=== PATIENT | male | born 1950 | race Caucasian/White ===

== ENCOUNTER 2021-08-07 09:46 | Outpatient (REF) | payer OTHER, SELFPAY | END 2021-08-07 09:47 | disposition home or self-care (01) | LOC: HO.LAB 09:46 | DX: R31.9 Hematuria, unspecified (principal) | CPT/HCPCS: 87086; 87088; 87186; 88112 ==

== ENCOUNTER → 2021-08-28 07:22 | Outpatient (BNVA) | payer OTHER, SELFPAY | PROVIDERS: PCP Nurse Practitioner Family; Referring Provider Nurse Practitioner Family; Visit Provider Nurse Practitioner ==

== ENCOUNTER 2021-08-30 09:06 | Outpatient (REF) | payer OTHER, SELFPAY ==
[2021-08-30 09:29] LABS: MANUAL DIFF FLAG NO
[2021-08-30 10:13] LABS: Basophils Percent Auto 0.3 % (0-2); Eosinophils Absolute Auto 0.1 X10*3/uL (0.0-0.4); Eosinophils Percent Auto 1.4 % (0-4); Hematocrit 35.7 % (42.0-52.0); Hemoglobin 10.9 g/dl (14.0-18.0); Imm Gran Abs Auto 0.02 X10*3/uL (0.00-0.03); Imm Gran Pct Auto 0.3 % (0.0-0.4); Lymphocytes Absolute Auto 1.5 X10*3/uL (1.2-4.9); Lymphocytes Percent Auto 23.3 % (20-40); Mean Corpuscular HGB Conc 30.5 g/dl (31.0-36.0); Mean Corpuscular Hemoglobin 26.2 pg (27.0-33.0); Mean Corpuscular Volume 85.8 fL (80.0-98.0); Mean Platelet Volume 10.5 fL (9.4-12.4); Monocytes Absolute Auto 0.5 X10*3/uL (0.1-1.2); Monocytes Percent Auto 7.6 % (2-11); Neutrophils Absolute Auto 4.3 x10*3/uL (2.0-8.3); Neutrophils Percent Auto 67.1 % (45-73); Platelet Count 391 X10*3/uL (160-400); Red Blood Count 4.16 X10*6/uL (4.60-5.80); Red Cell Distribution Width 15.5 % (11.0-16.0); White Blood Count 6.4 X10*3/uL (4.8-10.8)
[2021-08-30 10:26] LABS: Alanine Aminotransferase 18 U/L (0-40); Alkaline Phosphatase 136 U/L (39-117); Anion Gap 12 (12-20); Aspartate Amino Transferase 22 U/L (5-37); Bilirubin Total 0.4 mg/dL (0.0-1.0); Blood Urea Nitrogen 14 mg/dL (9-16); Calcium 9.4 mg/dL (8.4-10.2); Carbon Dioxide 27 mmol/L (22-29); Chloride 101 mmol/L (96-108); Estimated Glomerular Filt Rate > 60; Glucose Random 87 mg/dL (60-115); Potassium 5.1 mmol/L (3.3-5.1); Sodium 135 mmol/L (135-145); Total Protein 7.2 g/dL (6.5-8.0)
[2021-08-30 10:38] LABS: Blood Urea Nitrogen 13 mg/dL (9-16)
[2021-08-30 11:44] LABS: Urine Cytology See Pathology rpt
== END 2021-08-30 09:07 | disposition home or self-care (01) ==
LOC: HO.LAB 09:06
PROVIDERS: Absent Provider Nurse Practitioner
DX: R31.9 Hematuria, unspecified (principal); R10.9 Unspecified abdominal pain; K60.4 Rectal fistula; K92.1 Melena
CPT/HCPCS: 36415; 80053; 82378; 84520; 85025; 88112

== ENCOUNTER 2021-09-02 12:02 | Inpatient (IN) | payer OTHER, MEDICARE, SELFPAY ==
--- NOTE | ~2021-09-02 | CT_ITS ---
EXAMINATION: CT CHEST WITHOUT CONTRAST CLINICAL INFORMATION: Follow-up pulmonary nodule seen on abdominal pelvic CT COMPARISON: Abdominal pelvic CT from yesterday TECHNIQUE: Multidetector volumetric CT imaging of the chest was done. Axial MIP volume rendering provided. Sagittal and coronal reformatted images were obtained. This CT examination was performed using dose optimization techniques as appropriate, variously including the following: *Automated exposure control *Adjustment of mA and/or kV according to patient size (this includes techniques or standardized protocols for targeted exams where dose is matched to indication/reason for exam; i.e. extremities or head) *Use of iterative reconstruction technique DLP: 285 mGy-cm FINDINGS: LUNGS: There is evidence of mild emphysema. There is a linear parenchymal density seen at the left lung apex. This is irregularly-shaped and difficult to measure. This measures approximately 3 x 15 mm in transverse and longitudinal dimension coronal 41. There is a 1.2 cm left lower lobe nodule axial image 306 series 5. There is a 1.6 cm peripheral or subpleural right middle lobe nodule adjacent to the minor fissure axial image 313 series 5. There is a 1 cm lingular nodule axial image 346 series 5 there is a Image 1 x 1.5 cm peripheral or subpleural left lower lobe nodule adjacent to the fissure axial image 368 series 5. There is a 0.8 x 1 cm right middle lobe nodule axial image 431 series 5. There is a 1.2 x 1.5 cm right lower lobe nodule axial image 439 series 5. MEDIASTINUM: There is coronary artery and aortic valve calcification. The mediastinum is otherwise normal. PLEURA: There is no pleural effusion. No pleural mass or thickening. AXILLA: There is bilateral axillary lymphadenopathy. Largest lymph node is a left axillary lymph node which is upper normal in size. There is a small fatty lesion in the right latissimus dorsi muscle probably representing a lipoma. UPPER ABDOMEN: There is a 2 cm low-attenuation lesion in the upper pole of the left kidney probably representing a cyst. There is high attenuation in the gallbladder and bilateral renal collecting systems probably representing excretion of contrast from yesterday's exam. There are small upper abdominal retroperitoneal lymph nodes. There is evidence of atherosclerotic disease OSSEOUS STRUCTURES: There are degenerative changes of the spine. CT/CT chest wo con IMPRESSION: Emphysema. Multiple bilateral pulmonary nodules, largest measuring approximately 1.5 cm.. Infectious, inflammatory and neoplastic processes should be considered. Coronary artery and aortic valve calcification. Fleischner guidelines were followed.
--- NOTE | ~2021-09-02 | CT_ITS ---
EXAMINATION: CT-GUIDED RIGHT RENAL MASS BIOPSY CLINICAL INFORMATION: Right lower pole renal large mass. COMPARISON: CT abdomen 09/02/2021. TECHNIQUE: Following explaining CT fluoroscopy-guided right renal mass biopsy procedure, benefits and risk, a written consent was obtained. Patient was placed in left lateral decubitus view and preliminary CT imaging was obtained. An optimal site was selected along the right anterolateral lower abdomen following placement of markers and repeat scanning. A marker was placed on the skin. The marked site was cleaned and draped in the usual sterile manner. 1% lidocaine was administered at puncture site. Through a small skin incision, a 20-gauge guide needle was advanced from the skin into the lower pole right renal mass. A 3-pass fine-needle biopsy was performed with a 20-gauge spinal needle. Subsequently, a 4-pass core biopsy was performed with a 20-gauge biopsy gun. An adequate amount of sample was received on fine-needle and core biopsy. Postprocedure, the needle was withdrawn and complete hemostasis was achieved at the puncture site. Sterile dressing applied postprocedure. Patient received conscious sedation and was monitored for 30 minutes by IR nursing and radiologist. FINDINGS: On the left lateral decubitus view, there is a large mass in the lower pole right kidney less distinct on this nonenhanced CT when abdomen compared to previous enhanced CT 09/02/2021. Successful coaxial fine needle 20-gauge and core biopsy performed of lower pole right renal mass. The preliminary results revealed epithelial cells. CT/CT guided FNA IMPRESSION: Successful CT fluoroscopic-guided right lower pole renal mass fine-needle and core biopsy performed. Definite pathology results are pending. DLP: 249 mGy-cm
--- NOTE | ~2021-09-02 | CT_ITS ---
EXAMINATION: CT ABDOMEN AND PELVIS WITH CONTRAST CLINICAL INFORMATION: Pneumaturia and GI bleeding with mass and fistula suspected. COMPARISON: None TECHNIQUE: Multidetector volumetric images were obtained from the superior aspect of the liver through the pubic symphysis following administration 85 mL of Omnipaque 350 intravenous contrast. Sagittal and coronal reformatted images were obtained on the technologist's workstation. Oral Contrast: No. This CT examination was performed using dose optimization techniques as appropriate, variously including the following: *Automated exposure control. *Adjustment of mA and/or kV according to patient size (this includes techniques or standardized protocols for targeted exams where dose is matched to indication/reason for exam; i.e. extremities or head). *Use of iterative reconstruction technique. DLP: 486 mGy-cm FINDINGS: LUNG BASES: There are 2 somewhat spiculated masses at the right lung base, one in the middle lobe measuring 1.0 x 1.0 x 1.4 cm (4:19) and one in the right lower lobe measuring 1.8 x 1.2 x 1.5 cm (4:18). LIVER, GALLBLADDER, AND BILIARY TREE: The liver is normal in size, shape, and attenuation. No focal hepatic lesion or biliary ductal dilatation is present. The gallbladder is unremarkable with no evidence of radiopaque gallstones, gallbladder wall thickening, or obvious pericholecystic inflammatory changes. PANCREAS: Unremarkable. SPLEEN: Unremarkable. ADRENAL GLANDS: Unremarkable. KIDNEYS AND URETERS: The kidneys are normal in size, shape, and attenuation. There is a 2.7 benign Bosniak class I left upper pole renal cyst present. There is a large solid neoplasm in the lower pole of the right kidney measuring 4.6 x 4.2 x 5.6 cm. There is a cystic peripheral area in this mass. The mass extends towards the renal pelvis. No hydronephrosis, hydroureter, or calculi seen. No perinephric stranding. GASTROINTESTINAL TRACT AND BLADDER: There is a very abnormal area of rectosigmoid with thickening and enhancement and apparent invasion of the posterior bladder wall with lobular mucosal thickening posteriorly just above the level of the prostate. Air is present within the bladder presumably secondary to a fistulous connection. Diverticula are present in this area but no pericolonic fluid collections or retroperitoneal extraluminal air is seen. The remainder of the colon appears unremarkable. The small bowel appears normal. The appendix is normal. ABDOMINAL WALL: No significant hernia is appreciated. LYMPH NODES: Normal. VASCULAR: The IVC and renal veins appear normal. The left renal vein is retroaortic. Extensive aortic calcifications are present along with iliofemoral disease as well. No aneurysms. PELVIC VISCERA: Prostate and seminal vesicles are unremarkable. OSSEOUS STRUCTURES: Unremarkable. CT/CT abdomen pelvis w con IMPRESSION: Abnormal thickened sigmoid colon in the area of diverticula with apparent invasion of the bladder wall and associated air in the bladder. Differential diagnosis would include carcinoma as well as diverticulitis. I favor the former in light of the presence of what appears to be pulmonary metastases. Of note, a solid 5.6 cm neoplasm, presumably renal cell carcinoma, is present in the right kidney. It is hard to put all the findings together with one diagnosis unless the renal mass is a metastatic lesion. A lung biopsy of one of the pulmonary nodules could be the most illuminating sites to obtain diagnostic tissue. Fleischner guidelines were followed. This critical result was discussed with Dr. Tod Tobar at 7:40 PM on the evening of the exam and it was ascertained that the content and urgency of the report was understood at the time of direct communication.
--- NOTE | ~2021-09-02 | CT_ITS ---
EXAMINATION: CT-GUIDED RIGHT RENAL MASS BIOPSY CLINICAL INFORMATION: Right lower pole renal large mass. COMPARISON: CT abdomen 09/02/2021. TECHNIQUE: Following explaining CT fluoroscopy-guided right renal mass biopsy procedure, benefits and risk, a written consent was obtained. Patient was placed in left lateral decubitus view and preliminary CT imaging was obtained. An optimal site was selected along the right anterolateral lower abdomen following placement of markers and repeat scanning. A marker was placed on the skin. The marked site was cleaned and draped in the usual sterile manner. 1% lidocaine was administered at puncture site. Through a small skin incision, a 20-gauge guide needle was advanced from the skin into the lower pole right renal mass. A 3-pass fine-needle biopsy was performed with a 20-gauge spinal needle. Subsequently, a 4-pass core biopsy was performed with a 20-gauge biopsy gun. An adequate amount of sample was received on fine-needle and core biopsy. Postprocedure, the needle was withdrawn and complete hemostasis was achieved at the puncture site. Sterile dressing applied postprocedure. Patient received conscious sedation and was monitored for 30 minutes by IR nursing and radiologist. FINDINGS: On the left lateral decubitus view, there is a large mass in the lower pole right kidney less distinct on this nonenhanced CT when abdomen compared to previous enhanced CT 09/02/2021. Successful coaxial fine needle 20-gauge and core biopsy performed of lower pole right renal mass. The preliminary results revealed epithelial cells. CT/CT biopsy renal RT IMPRESSION: Successful CT fluoroscopic-guided right lower pole renal mass fine-needle and core biopsy performed. Definite pathology results are pending. DLP: 249 mGy-cm
[2021-09-02 12:42] VITALS: BP 105/69; PULSE 80; RESP 16; O2SAT 100; BMI 21.2
[2021-09-02 13:10] LABS: MANUAL DIFF FLAG NO
[2021-09-02 13:13] LABS: Appearance Urine CLOUDY; Color Urine YELLOW; Glucose Urine UA NEG (NEG); Leukocyte Esterase Urine 2+ (NEG); Nitrite Urine NEG (NEG); Specific Gravity - Urine >= 1.030 (1.005-1.025); UACC Culture Trigger YES; Urine Blood 3+ (NEG); Urine Ketones NEG (NEG); Urine Protein 1+ MG/DL (NEG-TRACE)
[2021-09-02 13:13] LABS: Basophils Percent Auto 0.4 % (0-2); Eosinophils Absolute Auto 0.1 X10*3/uL (0.0-0.4); Eosinophils Percent Auto 0.7 % (0-4); Hematocrit 32.5 % (42.0-52.0); Hemoglobin 10.7 g/dl (14.0-18.0); Imm Gran Abs Auto 0.03 X10*3/uL (0.00-0.03); Imm Gran Pct Auto 0.4 % (0.0-0.4); Lymphocytes Absolute Auto 1.6 X10*3/uL (1.2-4.9); Lymphocytes Percent Auto 19.5 % (20-40); Mean Corpuscular HGB Conc 32.9 g/dl (31.0-36.0); Mean Corpuscular Hemoglobin 27.6 pg (27.0-33.0); Mean Platelet Volume 9.8 fL (9.4-12.4); Monocytes Absolute Auto 0.7 X10*3/uL (0.1-1.2); Monocytes Percent Auto 8.8 % (2-11); Neutrophils Absolute Auto 5.8 x10*3/uL (2.0-8.3); Neutrophils Percent Auto 70.2 % (45-73); Platelet Count 360 X10*3/uL (160-400); Red Blood Count 3.87 X10*6/uL (4.60-5.80); Red Cell Distribution Width 15.6 % (11.0-16.0); White Blood Count 8.2 X10*3/uL (4.8-10.8)
[2021-09-02 13:30] LABS: Bacteria Urine 1+ /LPF; Mucus Urine 1+ /LPF; RBC Urine TNTC /HPF (0); Squamous Epithelial Cell Urine 1+ /LPF; UACC CULT YES; WBC Urine TNTC /HPF (0-4)
[2021-09-02 13:35] LABS: Anion Gap 12 (12-20); Blood Urea Nitrogen 14 mg/dL (9-16); Calcium 9.5 mg/dL (8.4-10.2); Carbon Dioxide 26 mmol/L (22-29); Chloride 99 mmol/L (96-108); Estimated Glomerular Filt Rate > 60; Glucose Random 91 mg/dL (60-115); Potassium 4.9 mmol/L (3.3-5.1); Sodium 132 mmol/L (135-145)
[2021-09-02] MEDS: Piperacillin Sodium/Tazobactam 3.375 GM in 0.9 % Sodium Chloride 50 ML IV (16:16)
[2021-09-02] MEDS: 0.9 % Sodium Chloride 500 ML IV (16:17)
--- NOTE | 2021-09-02 16:17 | ED_ITS ---
HPI - General Adult General Chief complaint: General Medical Stated complaint: Rectal bleed/ blood in urine Time Seen by Provider: 09/02/21 15:38 Source: patient and old records reviewed History of Present Illness HPI narrative: Patient complaining of GI bleed as well as hematuria dysuria. He has been seen as an outpatient with workup in progress by both GI and Urology. He states over the past several months he has been having episodes of pneumaturia especially after having a bowel movement. He has also been having hematuria and hematochezia without melena. He is due to have a CT scan of his abdomen before having a colonoscopy with concerns for a entero vesicular fistula. He is also due to have a uroterogram by his urologist as an outpatient. He presents today because symptoms are getting worse. He is having lower abdominal pain and worsening dysuria. He is due for scan on Wednesday but did not think he could wait that long. No fevers or chills. No nausea vomiting. His stools have gotten narrow over time as well. Related Data Previous Rx's Medication Instructions Recorded dicyclomine 20 mg tablet 20 mg PO QID 30 Days #120 tab 08/28/21 peg 3350-electrolytes 236 240 ml PO Q10M 1 Days #4000 ml 08/28/21 gram-22.74 gram-6.74 gram-5.86 gram solution (Golytely) sulfamethoxazole 800 1 tab PO BID 10 Days #20 tab 09/01/21 mg-trimethoprim 160 mg tablet Allergies Allergy/AdvReac Type Severity Reaction Status Date / Time No Known Allergies Allergy Verified 08/28/21 07:39 [facility] Past Medical History Surgical History History of surgery Social History Social History Patient Tobacco Use Status: Former Tobacco user Advance Directives: No Advance Directives Information Provided: Yes Physical Exam Vital Signs: Vital Signs: Last Vital Signs Temp 98.1 F 09/02/21 20:48 Pulse 66 09/02/21 20:48 Resp 12 09/02/21 20:48 BP 143/64 H 09/02/21 20:48 Pulse Ox 99 09/02/21 20:48 BMI result Body Mass Index 21.2 Course Course Course Narrative: 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 Possibly due to eroding mass. Urinary tract infection IV fluids IV antibiotics CT scan ordered Lab work shows white count of 3.87. Hemoglobin of 10.7. Creatinine is normal. 21:05. CT scan of the abdomen is very concerning in that it shows a sigmoid colon mass eroding through the bladder with a presumed fistula. He also has a mass of his kidney. Any has what appears to be metastases to his lungs. Results discussed with the patient. Also discussed with Oncology, Dr. Daugherty. Also discussed with surgery, Dr. Downing Case also discussed with hospitalist, Dr. Salazar Patient will be hospitalized to finish his workup. Medical Decision Making Lab Data Result diagrams: 09/02/21 12:57 09/02/21 12:58 Labs: Lab Results 09/02/21 09/02/21 09/02/21 Range/Units 12:55 12:57 12:58 WBC 8.2 (4.8-10.8) X10*3/uL RBC 3.87 L (4.60-5.80) X10*6/uL Hgb 10.7 L (14.0-18.0) g/dl Hct 32.5 L (42.0-52.0) % MCV 84.0 (80.0-98.0) fL MCH 27.6 (27.0-33.0) pg MCHC 32.9 (31.0-36.0) g/dl RDW 15.6 (11.0-16.0) % Plt Count 360 (160-400) X10*3/uL MPV 9.8 (9.4-12.4) fL Immature Gran % (Auto) 0.4 (0.0-0.4) % Neut % (Auto) 70.2 (45-73) % Lymph % (Auto) 19.5 L (20-40) % [place] % (Auto) 8.8 (2-11) % Eos % (Auto) 0.7 (0-4) % Baso % (Auto) 0.4 (0-2) % Lymph # (Auto) 1.6 (1.2-4.9) X10*3/uL [place] # (Auto) 0.7 (0.1-1.2) X10*3/uL Eos # (Auto) 0.1 (0.0-0.4) X10*3/uL Baso # (Auto) 0.0 (0.0-0.2) X10*3/uL Abs Immat Gran (auto) 0.03 (0.00-0.03) X10*3/uL Absolute Neuts (auto) 5.8 (2.0-8.3) x10*3/uL Absolute Nucleated RBC 0.000 (0.0-0.012) X10*3/uL Nucleated RBC % (auto) 0.0 (0.0-0.2) /100WBC Sodium 132 L (135-145) mmol/L Potassium 4.9 (3.3-5.1) mmol/L Chloride 99 (96-108) mmol/L Carbon Dioxide 26 (22-29) mmol/L Anion Gap 12 (12-20) BUN 14 (9-16) mg/dL Creatinine 1.12 (0.5-1.4) mg/dL Estim Creat Clear Calc 64.0 Estimated GFR > 60 Random Glucose 91 (60-115) mg/dL Lactic Acid (0.5-2.0) mmol/L Calcium 9.5 (8.4-10.2) mg/dL Urine Color YELLOW Urine Appearance CLOUDY Urine pH 6.0 (5.0-8.0) Ur Specific [place] >= 1.030 H (1.005-1.025) Urine Protein 1+ H (NEG-TRACE) MG/DL Urine Glucose (UA) NEG (NEG) MG/DL Urine Ketones NEG (NEG) MG/DL Urine Blood 3+ H (NEG) Urine Nitrite NEG (NEG) Ur Leukocyte Esterase 2+ H (NEG) Urine RBC TNTC H (0) /HPF Urine WBC TNTC H (0-4) /HPF Ur Squamous Epith Cells 1+ /LPF Urine Bacteria 1+ /LPF Urine Mucus 1+ /LPF COVID-19 (JAS) (Negative) COVID-19 Clin Com 09/02/21 09/02/21 Range/Units 16:14 16:14 WBC (4.8-10.8) X10*3/uL RBC (4.60-5.80) X10*6/uL Hgb (14.0-18.0) g/dl Hct (42.0-52.0) % MCV (80.0-98.0) fL MCH (27.0-33.0) pg MCHC (31.0-36.0) g/dl RDW (11.0-16.0) % Plt Count (160-400) X10*3/uL MPV (9.4-12.4) fL Immature Gran % (Auto) (0.0-0.4) % Neut % (Auto) (45-73) % Lymph % (Auto) (20-40) % [place] % (Auto) (2-11) % Eos % (Auto) (0-4) % Baso % (Auto) (0-2) % Lymph # (Auto) (1.2-4.9) X10*3/uL [place] # (Auto) (0.1-1.2) X10*3/uL Eos # (Auto) (0.0-0.4) X10*3/uL Baso # (Auto) (0.0-0.2) X10*3/uL Abs Immat Gran (auto) (0.00-0.03) X10*3/uL Absolute Neuts (auto) (2.0-8.3) x10*3/uL Absolute Nucleated RBC (0.0-0.012) X10*3/uL Nucleated RBC % (auto) (0.0-0.2) /100WBC Sodium (135-145) mmol/L Potassium (3.3-5.1) mmol/L Chloride (96-108) mmol/L Carbon Dioxide (22-29) mmol/L Anion Gap (12-20) BUN (9-16) mg/dL Creatinine (0.5-1.4) mg/dL Estim Creat Clear Calc Estimated GFR Random Glucose (60-115) mg/dL Lactic Acid 0.8 (0.5-2.0) mmol/L Calcium (8.4-10.2) mg/dL Urine Color Urine Appearance Urine pH (5.0-8.0) Ur Specific [place] (1.005-1.025) Urine Protein (NEG-TRACE) MG/DL Urine Glucose (UA) (NEG) MG/DL Urine Ketones (NEG) MG/DL Urine Blood (NEG) Urine Nitrite (NEG) Ur Leukocyte Esterase (NEG) Urine RBC (0) /HPF Urine WBC (0-4) /HPF Ur Squamous Epith Cells /LPF Urine Bacteria /LPF Urine Mucus /LPF COVID-19 (JAS) Negative (Negative) COVID-19 Clin Com See Note Discharge Plan Discharge Patient Disposition: Admitted As Inpatient Prescriptions: No Action sulfamethoxazole-trimethoprim 800-160 mg tablet 1 tab PO BID 10 Days Qty: 20 0RF peg 3350-electrolytes [Golytely] 236-22.74-6.74 -5.86 gram recon soln 240 ml PO Q10M 1 Days Qty: 4000 0RF Rx Instructions: until fecal effluent is clear; do not exceed a total volume of 2,000 mL dicyclomine 20 mg tablet 20 mg PO QID 30 Days Qty: 120 3RF
[2021-09-02 16:30] LABS: Lactic Acid 0.8 mmol/L (0.5-2.0)
[2021-09-02 16:38] LABS: COVID-19 Test Negative (Negative)
[2021-09-02] MEDS: iohexoL 350 MG/ML 100 ML INFUS..BTL IV (18:18)
[2021-09-02] MEDS: Barium Sulfate Oral (Vanilla) 450 ML ORAL.SUSP 900 ML PO (18:18)
[2021-09-02 20:48] VITALS: BP 143/64; PULSE 66; RESP 12; TEMP 36.7; O2SAT 99
--- NOTE | 2021-09-02 21:22 | PHA.MEDREC ---
Pharmacy Consult ? Medication Reconciliation Pharmacy has completed the medication reconciliation.
--- NOTE | 2021-09-02 21:46 | P.HPHOSP_ITS ---
History of Present Illness Date of Service: 09/02/21 Chief Complaint: hematuria,dysuria this is a 71-year-old male with no significant past medical history who presents to the hospital with complaints of hematuria, as well as frequency. Patient reports that he has had hematuria of since June, he is currently following with Dr. Clark the urologist and was to have a CT urogram secondary to the history of hematuria. he reports that today his symptoms worsened, he is also experiencing bright blood per rectum with his bowel movements. He reports that he has increased frequency of urination, as well as dysuria for the past 2 days. He has also been having unintentional weight loss. Patient denies any chest pain, no abdominal pain, no nausea or vomiting, no lower extremity edema. No numbness weakness or tingling. No headache or change in vision. On arrival to the ED patient hemodynamically stable with no significant abnormal vitals Labs are significant for Hemoglobin of 10.7, hematocrit 32.5 which is in stable since August 30, sodium of 132, UA positive for leukocyte Estrace, WBC, as well as blood. Abdominal pelvic CT shows multiple abnormalities including abnormal thickened sigmoid colon in the area of diverticula with apparent invasion of the bladder wall and associated air in the bladder. Differential diagnosis would include carcinoma as well as diverticulitis. The former is likely. There appears to be pulmonary metastasis. There is a 5.6 cm neoplasm presumably renal cell carcinoma present in the right kidney. In the lung base there are to spiculated masses measuring 1 x 1 x 1.4 cm and 1.8 x 1.2 x 1.5 cm likely metastatic. Patient's case discussed with Hematology-Oncology as well as with general surgery and will be admitted for further management. Review of Systems Review of Systems: Yes all other systems are reviewed and are negative [facility], [facility] Medical History (Updated 09/03/21 @ 06:40 by Gabbie Salazar MD) No family history of cancer Family History (Updated 09/03/21 @ 06:38 by Gabbie Salazar MD) Mother Parkinsons disease Father ESRD (end stage renal disease) Other No family history of cancer Surgical History History of surgery Social History Alcohol intake: former Patient Tobacco Use Status: Former Tobacco user Use of substances other than those prescribed or required for medical reasons: No Advance Directives: No Advance Directives Information Provided: Yes Meds Allergies Allergy/AdvReac Type Severity Reaction Status Date / Time No Known Allergies Allergy Verified 08/28/21 07:39 Active Medications: Current Medications Acetaminophen (Acetaminophen 325 Mg Tablet) 650 mg PO Q6H PRN PRN Reason: Pain, Mild (Pain Scale 1-3) Docusate Sodium (Docusate Sodium 100 Mg Capsule) 100 mg PO DAILY PRN PRN Reason: Constipation Heparin Sodium (Porcine) (Heparin Sodium,Porcine 5,000 Unit/Ml Vial) 5,000 unit SUBCUT Q12H DMITRY Ceftriaxone Sodium 1 gm/ (Sodium Chloride) 50 mls @ 100 mls/hr IV Q24H DMITRY Morphine Sulfate (Morphine Sulfate 4 Mg/Ml Cartridge) 4 mg IVPUSH Q4H PRN; Protocol PRN Reason: Pain, Severe (Pain Scale 7-10) Ondansetron HCl (Ondansetron Hcl 4 Mg/2 Ml Vial) 4 mg IVPUSH Q8H PRN PRN Reason: Nausea and Vomiting Sodium Chloride (0.9 % Sodium Chloride Flush 3 Ml Syringe) 3 ml IVFLUSH QSHIFT DMITRY Physical Exam Vital Signs and Narrative: Vital Signs: Last Vital Signs Temp 98.1 F 09/02/21 20:48 Pulse 66 09/02/21 20:48 Resp 12 09/02/21 20:48 BP 143/64 H 09/02/21 20:48 Pulse Ox 99 09/02/21 20:48 BMI result Body Mass Index 21.2 Const: General: cooperative and no acute distress Orientation/consciousness: patient oriented x3 Eyes: General: appearance normal, both eyes and all related structures Resp: Effort & Inspection: normal respiratory effort Auscultation: clear to auscultation bilaterally Cardio: Rate: regular rate Rhythm: regular rhythm GI: Other: abdomen soft, has no rebound or guarding Palpation (GI): Soft to palpation Auscultation: normal bowel sounds Skin: General skin exam: no rashes or lesions noted Neuro: General: patient oriented x3 Cognition (Neuro): normal cognition Extrem: General: Yes normal to inspection and Yes no pedal edema Results Labs CBC and Chem 7: 09/02/21 12:57 09/02/21 12:58 Labs: Laboratory Results - last 24 hr 09/02/21 09/02/21 09/02/21 12:55 12:57 12:58 MCV 84.0 MCH 27.6 MCHC 32.9 RDW 15.6 Plt Count 360 MPV 9.8 Immature Gran % (Auto) 0.4 Neut % (Auto) 70.2 Lymph % (Auto) 19.5 L [place] % (Auto) 8.8 Eos % (Auto) 0.7 Baso % (Auto) 0.4 Lymph # (Auto) 1.6 [place] # (Auto) 0.7 Eos # (Auto) 0.1 Baso # (Auto) 0.0 Abs Immat Gran (auto) 0.03 Absolute Neuts (auto) 5.8 Absolute Nucleated RBC 0.000 Nucleated RBC % (auto) 0.0 Anion Gap 12 Estim Creat Clear Calc 64.0 Estimated GFR > 60 Random Glucose 91 Lactic Acid Calcium 9.5 Urine Color YELLOW Urine Appearance CLOUDY Urine pH 6.0 Ur Specific [place] >= 1.030 H Urine Protein 1+ H Urine Glucose (UA) NEG Urine Ketones NEG Urine Blood 3+ H Urine Nitrite NEG Ur Leukocyte Esterase 2+ H Urine RBC TNTC H Urine WBC TNTC H Ur Squamous Epith Cells 1+ Urine Bacteria 1+ Urine Mucus 1+ COVID-19 (JAS) COVID-19 Clin Com 09/02/21 09/02/21 16:14 16:14 MCV MCH MCHC RDW Plt Count MPV Immature Gran % (Auto) Neut % (Auto) Lymph % (Auto) [place] % (Auto) Eos % (Auto) Baso % (Auto) Lymph # (Auto) [place] # (Auto) Eos # (Auto) Baso # (Auto) Abs Immat Gran (auto) Absolute Neuts (auto) Absolute Nucleated RBC Nucleated RBC % (auto) Anion Gap Estim Creat Clear Calc Estimated GFR Random Glucose Lactic Acid 0.8 Calcium Urine Color Urine Appearance Urine pH Ur Specific [place] Urine Protein Urine Glucose (UA) Urine Ketones Urine Blood Urine Nitrite Ur Leukocyte Esterase Urine RBC Urine WBC Ur Squamous Epith Cells Urine Bacteria Urine Mucus COVID-19 (JAS) Negative COVID-19 Clin Com See Note Imaging Radiologist's Impressions: Impressions Abdomen/Pelvis CT 09/02/21 18:25 IMPRESSION: Abnormal thickened sigmoid colon in the area of diverticula with apparent invasion of the bladder wall and associated air in the bladder. Differential diagnosis would include carcinoma as well as diverticulitis. I favor the former in light of the presence of what appears to be pulmonary metastases. Of note, a solid 5.6 cm neoplasm, presumably renal cell carcinoma, is present in the right kidney. It is hard to put all the findings together with one diagnosis unless the renal mass is a metastatic lesion. A lung biopsy of one of the pulmonary nodules could be the most illuminating sites to obtain diagnostic tissue. Fleischner guidelines were followed. This critical result was discussed with Dr. Tod Tobar at 7:40 PM on the evening of the exam and it was ascertained that the content and urgency of the report was understood at the time of direct communication. Assessment and Plan (1) Hematuria: Qualifiers: Hematuria type: gross Qualified Code(s): R31.0 - Gross hematuria Status: Acute (2) Colonic mass: Status: Acute (3) Neville-vesical fistula: Status: Acute (4) Kidney mass: Status: Acute (5) Pulmonary nodule: Status: Acute (6) Hematochezia: Status: Acute (7) History of tobacco use: Status: Acute Plan 71-year-old male with no significant past medical history who presents to the hospital with complaints of hematuria this been going on for a month but has now worsened. 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 versus bladder cancer less likely - hemoglobin stable - patient was to have CT urogram outpatient but reports worsening symptoms and therefore presented to the hospital - urology consulted - monitor CBC # multiple masses including renal mass, as well as colonic mass concerning for malignancy - new findings - CT findings as above - likely to separate malignancy with metastasis to the lung - Hematology-Oncology consulted, general surgery consult to comfort patient will likely need biopsy of the lung nodules # acute hematochezia - likely secondary to colonic mass - hemoglobin stable - GI consulted - monitor CBC #pulmonary nodule - has 2 nodules as seen in the bases of the lungs - will obtain chest ct to [place] for any other nodules - likely metastatic DVT prophylaxis: high risk of DVT but given his hematochezia and hematuria will place on SCDs Quality Stroke Does the patient have a stroke diagnosis?: No VTE Prior VTE?: No VTE Risk Level:: Medical - moderate - high VTE Device Contraindication: Treatment Not Indicated VTE Drug Contraindication: N/A - Med Ordered
[2021-09-02 22:42] VITALS: BP 142/67; PULSE 68; RESP 12; TEMP 36.5; O2SAT 98
[2021-09-03] MEDS: Heparin Sodium,Porcine 5,000 UNIT/ML VIAL 5000 UNIT SUBCUT (01:37)
[2021-09-03] MEDS: cefTRIAXone sodium 1 GM in 0.9 % Sodium Chloride 50 ML IV ×2 (01:37→22:27)
[2021-09-03] MEDS: 0.9 % Sodium Chloride Flush 3 ML SYRINGE IVFLUSH ×2 (01:40→15:32)
[2021-09-03 01:47] VITALS: BP 143/61; PULSE 65; RESP 18; TEMP 36.8; O2SAT 97
--- NOTE | 2021-09-03 01:51 | PC.NURSE ---
pt is a&o, no sob or chest pain. Delay in medication from prior shift . Medicated per sep. Call villatoro in reach and warm blanket provided. pt will continue to monitor.
[2021-09-03 05:55] VITALS: BP 133/65; PULSE 62; RESP 18; O2SAT 97
[2021-09-03 07:26] VITALS: BP 125/62; PULSE 75; RESP 12; TEMP 37; O2SAT 98
[2021-09-03 07:37] LABS: MANUAL DIFF FLAG NO
[2021-09-03 07:41] LABS: Basophils Percent Auto 0.5 % (0-2); Eosinophils Absolute Auto 0.2 X10*3/uL (0.0-0.4); Eosinophils Percent Auto 2.8 % (0-4); Hematocrit 32.5 % (42.0-52.0); Hemoglobin 10.1 g/dl (14.0-18.0); Imm Gran Abs Auto 0.02 X10*3/uL (0.00-0.03); Imm Gran Pct Auto 0.3 % (0.0-0.4); Lymphocytes Absolute Auto 1.1 X10*3/uL (1.2-4.9); Lymphocytes Percent Auto 17.6 % (20-40); Mean Corpuscular HGB Conc 31.1 g/dl (31.0-36.0); Mean Corpuscular Hemoglobin 26.2 pg (27.0-33.0); Mean Corpuscular Volume 84.2 fL (80.0-98.0); Mean Platelet Volume 10.5 fL (9.4-12.4); Monocytes Absolute Auto 0.6 X10*3/uL (0.1-1.2); Monocytes Percent Auto 9.9 % (2-11); Neutrophils Absolute Auto 4.5 x10*3/uL (2.0-8.3); Neutrophils Percent Auto 68.9 % (45-73); Platelet Count 333 X10*3/uL (160-400); Red Blood Count 3.86 X10*6/uL (4.60-5.80); Red Cell Distribution Width 15.6 % (11.0-16.0); White Blood Count 6.5 X10*3/uL (4.8-10.8)
[2021-09-03 08:12] LABS: Anion Gap 12 (12-20); Blood Urea Nitrogen 10 mg/dL (9-16); Calcium 8.9 mg/dL (8.4-10.2); Carbon Dioxide 25 mmol/L (22-29); Chloride 100 mmol/L (96-108); Creatinine Clr Calc Pharmacy 82.4; Estimated Glomerular Filt Rate > 60; Glucose Random 72 mg/dL (60-115); Potassium 4.8 mmol/L (3.3-5.1); Sodium 132 mmol/L (135-145)
--- NOTE | 2021-09-03 08:50 | P.CONGS_ITS ---
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 He says that he has been passing blood rectum all months. He says that he has had this periodically in the past but the seemed to have increased in volume in frequency starting May 2021. He also says that he has had some in his urine on and off and actually he is undergoing workup with the urologist Dr. Clark. He had also noticed some passage of air with urination the past several days. He describes some unusual lower abdominal pain yesterday he was brought to the emergency room. Denies any nausea or vomiting. He denies any fever. He does state that he has some degree of weight loss for the past few months. He has never had any colonoscopy in the past. Review of Systems Constitutional: Constitutional: Denies chills and Denies fever(s) Cardiovascular: Cardiovascular: Denies chest pain, Denies dyspnea and Denies dyspnea on exertion Respiratory: Respiratory: Denies cough, Denies dyspnea and Denies dyspnea on exertion Gastrointestinal: Gastrointestinal: Reports hematochezia and Denies change in bowel habits Genitourinary: Genitourinary: Reports hematuria and Denies difficulty urinating Musculoskeletal: Musculoskeletal: Denies back pain and Denies limited range of motion Neurologic: Denies focal weakness and Denies convulsions Psychiatric: Psychiatric: Denies depression and Denies mood swings PMFSH Past Medical History Medical History No family history of cancer Family History Family History Mother Parkinsons disease Father ESRD (end stage renal disease) Other No family history of cancer Surgical History Surgical History History of surgery Social History Social History Household Members: Spouse Housing: House Do you presently have visiting nurse or other home services: No Alcohol intake: former Patient Tobacco Use Status: Former Tobacco user e-Cigarette/Vaping Use: Former Use service: No Current occupational status: employed Meds Allergies Allergy/AdvReac Type Severity Reaction Status Date / Time No Known Allergies Allergy Verified 09/04/21 12:25 Active Medications: Current Medications Acetaminophen (Acetaminophen 325 Mg Tablet) 650 mg PO Q6H PRN PRN Reason: Pain, Mild (Pain Scale 1-3) Docusate Sodium (Docusate Sodium 100 Mg Capsule) 100 mg PO DAILY PRN PRN Reason: Constipation Ceftriaxone Sodium 1 gm/ (Sodium Chloride) 50 mls @ 100 mls/hr IV Q24H [facility] Last Admin: 09/03/21 01:37 Dose: 100 mls/hr Documented by: Morphine Sulfate (Morphine Sulfate 4 Mg/Ml Cartridge) 4 mg IVPUSH Q4H PRN; Protocol PRN Reason: Pain, Severe (Pain Scale 7-10) Ondansetron HCl (Ondansetron Hcl 4 Mg/2 Ml Vial) 4 mg IVPUSH Q8H PRN PRN Reason: Nausea and Vomiting Sodium Chloride (0.9 % Sodium Chloride Flush 3 Ml Syringe) 3 ml IVFLUSH QSHIFT [facility] Last Admin: 09/03/21 01:40 Dose: 3 ml Documented by: Physical Exam Vital Signs: Vital Signs: Last Vital Signs Temp 98.6 F 09/03/21 07:26 Pulse 75 09/03/21 07:26 Resp 12 09/03/21 07:26 BP 125/62 09/03/21 07:26 Pulse Ox 98 09/03/21 07:26 BMI result Body Mass Index 21.2 Const: General: comfortable and no acute distress Orientation/c onsciousness: patient oriented x3 Neck: Neck: Yes no lymphadenopathy Resp: Auscultation: clear to auscultation bilaterally Cardio: Rhythm: regular rhythm GI: Palpation (GI): Soft to palpation, nontender and no guarding Neuro: General: patient oriented x3 Results Labs Result diagrams: 09/10/21 05:21 09/10/21 05:21 Labs: Abnormal lab results 09/02/21 09/02/21 09/02/21 Range/Units 12:55 12:57 12:58 RBC 3.87 L (4.60-5.80) X10*6/uL Hgb 10.7 L (14.0-18.0) g/dl Hct 32.5 L (42.0-52.0) % MCH (27.0-33.0) pg Lymph % (Auto) 19.5 L (20-40) % Lymph # (Auto) (1.2-4.9) X10*3/uL Sodium 132 L (135-145) mmol/L Ur Specific [place] >= 1.030 H (1.005-1.025) Urine Protein 1+ H (NEG-TRACE) MG/DL Urine Blood 3+ H (NEG) Ur Leukocyte Esterase 2+ H (NEG) Urine RBC TNTC H (0) /HPF Urine WBC TNTC H (0-4) /HPF 09/03/21 09/03/21 Range/Units 06:55 06:55 RBC 3.86 L (4.60-5.80) X10*6/uL Hgb 10.1 L (14.0-18.0) g/dl Hct 32.5 L (42.0-52.0) % MCH 26.2 L (27.0-33.0) pg Lymph % (Auto) 17.6 L (20-40) % Lymph # (Auto) 1.1 L (1.2-4.9) X10*3/uL Sodium 132 L (135-145) mmol/L Ur Specific [place] (1.005-1.025) Urine Protein (NEG-TRACE) MG/DL Urine Blood (NEG) Ur Leukocyte Esterase (NEG) Urine RBC (0) /HPF Urine WBC (0-4) /HPF Short CBC 09/02/21 09/03/21 Range/Units 12:57 06:55 WBC 8.2 6.5 (4.8-10.8) X10*3/uL Hgb 10.7 L 10.1 L (14.0-18.0) g/dl Hct 32.5 L 32.5 L (42.0-52.0) % Plt Count 360 333 (160-400) X10*3/uL BMP 09/02/21 09/03/21 12:58 06:55 Sodium 132 L 132 L Potassium 4.9 4.8 Chloride 99 100 Carbon Dioxide 26 25 BUN 14 10 Creatinine 1.12 0.87 Calcium 9.5 8.9 D Urine 09/02/21 Range/Units 12:55 Urine Color YELLOW Urine Appearance CLOUDY Urine pH 6.0 (5.0-8.0) Ur Specific [place] >= 1.030 H (1.005-1.025) Urine Protein 1+ H (NEG-TRACE) MG/DL Urine Glucose (UA) NEG (NEG) MG/DL All other labs normal. Imaging Abdomen CT scan report/results: report reviewed and image reviewed CT scan - pelvis: report reviewed and image reviewed Assessment and Plan (1) [place]-vesical fistula: Status: Acute He has multiple acute issues with wheezing hematochezia as well as hematuria. He also has pneumaturia and he I have reviewed his CAT scan. This shows multiple abnormal findings, including a right kidney mass that is suspicious for a renal cell carcinoma. 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 He has pulmonary nodules as well. He has never had any colonoscopy in the past. He will need a lot of workup. He with a colonoscopy. He will need to be seen by the urologist because of the kidney mass along with his hematuria. He should have a tissue diagnosis for his pulmonary nodules. He will need an oncologist for opinion with regards to managing the above as well. I had a long discussion with him as well as his daughter Hyacinth. With his colovesical fistula he, he will eventually need to have a sigmoid resection down the line. I will follow along closely while he is in the hospital. Procedures Date of Service Date of Service: 09/03/21
[2021-09-03 09:10] LABS: Prothrombin Time 11.9 SEC (9.9-13.0)
[2021-09-03 09:12] LABS: Partial Thromboplastin Time 43.3 SEC (24.1-38.0)
--- NOTE | 2021-09-03 09:57 | MHC.CM.PN ---
Met with patient and daughter, Hyacinth, in regards to discharge planning. Patient lives with his , ambulates independently and had no services prior to coming to the hospital. Patient's , Lisa Powell, is also admitted to the hospital. Patient does not have a PCP. PCP list provided. HCP completed, signed and witnessed. Original given to patient. Copy placed in chart. Anticipate home services will not be necessary due to patient not being homebound and not having a PCP. Patient received 3 Pfizer vaccines. Family will transport patient home when medically stable. Continue to monitor for d/c needs.
--- NOTE | 2021-09-03 11:00 | PM.GICN ---
History of Present Illness Data of Consult Service Date: 09/03/21 Primary Care Provider: Unknown Physician HPI Reason for consult: colon mass 71-year-old male with hx of tobacco use who I am seeing for assessment for abnormal imaging and rectal bleeding. patient has been having hematuria with dark urine since 2020 but more recently been getting more noticeable, also increased urine and dysuria for last few days. He has noted bright red blood mixed with stools, along with fair appetite and weight loss. He has never has colonoscopy. Patient denies any chest pain, no abdominal pain, no nausea or vomiting, no lower extremity edema.? No numbness weakness or tingling.? No headache or change in vision.?\ LABS: Hemoglobin: 10.7, hematocrit 32, sodium of 132, UA positive for leukocyte E[place]ace, WBC, blood. Imaging: Abdominal pelvic CT: abnormal thickened sigmoid colon in the area of diverticula with apparent invasion of the bladder wall and associated air in the bladder.? pulmonary metastasis with spiculated masses.? Concern for right sided Renal cell ca . CT chest with multiple pulm nodules, atherosclerosis, axillary lymphadenopathy Review of Systems Review of Systems: Yes all other systems are reviewed and are negative Constitutional: Constitutional: Denies chills and Denies fever(s) Cardiovascular: Cardiovascular: Denies chest pain, Denies dyspnea and Denies dyspnea on exertion Respiratory: Respiratory: Denies cough, Denies dyspnea and Denies dyspnea on exertion Gastrointestinal: Gastrointestinal: Reports hematochezia and Denies change in bowel habits Genitourinary: Genitourinary: Reports hematuria and Denies difficulty urinating Musculoskeletal: Musculoskeletal: Denies back pain and Denies limited range of motion Neurologic: Denies focal weakness and Denies convulsions Psychiatric: Psychiatric: Denies depression and Denies mood swings [facility] Past Medical History Medical History (Updated 09/03/21 @ 06:40 by Gabbie Salazar MD) No family history of cancer Family History Family History (Updated 09/03/21 @ 06:38 by Gabbie Salazar MD) Mother Parkinsons disease Father ESRD (end stage renal disease) Other No family history of cancer Surgical History Surgical History History of surgery Social History Social History Household Members: Spouse Housing: House Do you presently have visiting nurse or other home services: No Alcohol intake: former Patient Tobacco Use Status: Former Tobacco user e-Cigarette/Vaping Use: Former Use service: No Current occupational status: employed Meds Allergies Allergy/AdvReac Type Severity Reaction Status Date / Time No Known Allergies Allergy Verified 08/28/21 07:39 Active Medications: Current Medications Acetaminophen (Acetaminophen 325 Mg Tablet) 650 mg PO Q6H PRN PRN Reason: Pain, Mild (Pain Scale 1-3) Docusate Sodium (Docusate Sodium 100 Mg Capsule) 100 mg PO DAILY PRN PRN Reason: Constipation Ceftriaxone Sodium 1 gm/ (Sodium Chloride) 50 mls @ 100 mls/hr IV Q24H [facility] Last Admin: 09/03/21 01:37 Dose: 100 mls/hr Documented by: Morphine Sulfate (Morphine Sulfate 4 Mg/Ml Cartridge) 4 mg IVPUSH Q4H PRN; Protocol PRN Reason: Pain, Severe (Pain Scale 7-10) Ondansetron HCl (Ondansetron Hcl 4 Mg/2 Ml Vial) 4 mg IVPUSH Q8H PRN PRN Reason: Nausea and Vomiting Sodium Chloride (0.9 % Sodium Chloride Flush 3 Ml Syringe) 3 ml IVFLUSH QSHIFT [facility] Last Admin: 09/03/21 08:52 Dose: Not Given Documented by: Physical Exam Vital Signs: Vital Signs: Last Vital Signs Temp 98.6 F 09/03/21 07:26 Pulse 75 09/03/21 07:26 Resp 12 09/03/21 07:26 BP 125/62 09/03/21 07:26 Pulse Ox 98 09/03/21 07:26 BMI result Body Mass Index 21.2 Const: General: cooperative, comfortable and no acute distress Orientation/consciousness: patient oriented x3 Eyes: General: appearance normal, both eyes and all related structures Neck: Neck: Yes no lymphadenopathy and Yes no meningeal signs Resp: Effort & Inspection: normal respiratory effort Auscultation: clear to auscultation bilaterally Cardio: Rate: regular rate Rhythm: regular rhythm GI: Other: abdomen soft, has no rebound or guarding Palpation (GI): Soft to palpation, nontender and no guarding Auscultation: normal bowel sounds Skin: General skin exam: no rashes or lesions noted Neuro: General: patient oriented x3 and no meningeal signs Cognition (Neuro): normal cognition Extrem: General: Yes normal to inspection and Yes no pedal edema Psych: Appearance: grossly normal and well kempt Results Labs CBC & Chem 7: 09/03/21 06:55 09/03/21 06:55 Labs: Short CBC 09/02/21 09/03/21 Range/Units 12:57 06:55 WBC 8.2 6.5 (4.8-10.8) X10*3/uL Hgb 10.7 L 10.1 L (14.0-18.0) g/dl Hct 32.5 L 32.5 L (42.0-52.0) % Plt Count 360 333 (160-400) X10*3/uL BMP 09/02/21 09/03/21 12:58 06:55 Sodium 132 L 132 L Potassium 4.9 4.8 Chloride 99 100 Carbon Dioxide 26 25 BUN 14 10 Creatinine 1.12 0.87 Calcium 9.5 8.9 D Urine 09/02/21 Range/Units 12:55 Urine Color YELLOW Urine Appearance CLOUDY Urine pH 6.0 (5.0-8.0) Ur Specific [place] >= 1.030 H (1.005-1.025) Urine Protein 1+ H (NEG-TRACE) MG/DL Urine Glucose (UA) NEG (NEG) MG/DL Imaging CT scan - abdomen: Attestation: I personally reviewed and interpreted this imaging study as follows: My impression: abnormal thickened sigmoid colon with fistula to the bladder, possible mass lesion, kidney lesion on right and left kidney cyst, pulm nodules, atherosclerosis Assessment and Plan (1) Bloody stools: Status: Acute (2) Colonic mass: Status: Acute Plan 1/ Weight loss with hematuria and rectal bleeding with abn imaging suspicious for neoplasia-could be RCC< colon ca, lung ca -uncertain if all one process with mets and one primary or multiple processes going on 2/ anemia, related to 1/ above Plan: 1/ sigmoidoscopy tomorrow with tissue biopsies -keep on clears today and then enemas tomorrow 2/ check cea, psa 3/ check ferritin, b12, folate and replace if low Procedures Date of Service Date of Service: 09/03/21
[2021-09-03 11:05] VITALS: BP 134/63; PULSE 71; RESP 18; TEMP 36.8; O2SAT 97
--- NOTE | 2021-09-03 16:20 | PM.EVENT ---
Event Note Date of Service: 09/03/21 Event Note: appears comfortable stable VS Abdomen soft, benign, nontender Looks well Awaiting workup for renal mass, colovesical fistula For colonoscopy To be seen by as well Tissue diagnosis for pulmonary nodules Will continue to follow Daughter Hyacinth at bedside
--- NOTE | 2021-09-03 16:36 | P.PNIM_ITS ---
Subjective Subjective Date of Service: 09/03/21 Interval History: No abd pain Urinating dark material No cough Review of Systems Review of Systems: Yes all other systems are reviewed and are negative Physical Exam Vital Signs: Vital Signs: Last Vital Signs Temp 98.3 F 09/03/21 11:05 Pulse 71 09/03/21 11:05 Resp 18 09/03/21 11:05 BP 134/63 09/03/21 11:05 Pulse Ox 97 09/03/21 11:05 BMI result Body Mass Index 21.2 Gen: in no acute distress HEENT: sclera anicteric, moist mucus membranes Neck: supple Lungs: clear to auscultation bilaterally Heart: regular rate and rhythm, no murmurs Abd: soft, non-tender, non-distended Ext: no edema Skin: warm/well-perfused Neuro: alert and oriented x3, no focal findings Psych: appropriate affect Objective Data Active Medications Acetaminophen (Acetaminophen 325 Mg Tablet) 650 mg PO Q6H PRN PRN Reason: Pain, Mild (Pain Scale 1-3) Docusate Sodium (Docusate Sodium 100 Mg Capsule) 100 mg PO DAILY PRN PRN Reason: Constipation Ceftriaxone Sodium 1 gm/ (Sodium Chloride) 50 mls @ 100 mls/hr IV Q24H [facility] Last Infusion: 09/03/21 11:56 Dose: 0 mls/hr Documented by: BLEEM Morphine Sulfate (Morphine Sulfate 4 Mg/Ml Cartridge) 4 mg IVPUSH Q4H PRN; Protocol PRN Reason: Pain, Severe (Pain Scale 7-10) Ondansetron HCl (Ondansetron Hcl 4 Mg/2 Ml Vial) 4 mg IVPUSH Q8H PRN PRN Reason: Nausea and Vomiting Sodium Biphosphate/Sodium Phosphate (Sodium Phosphate,[place]-Dibasic 133 Ml Enema) 133 ml [place] ONCE PRN PRN Reason: Consult order Sodium Chloride (0.9 % Sodium Chloride Flush 3 Ml Syringe) [facility] Last Admin: 09/03/21 15:32 Dose: 3 ml Documented by: WINSTON Labs CBC & Chem 7: 09/03/21 06:55 09/03/21 06:55 Labs: Laboratory Results - last 24 hr 09/02/21 09/03/21 09/03/21 16:14 06:55 06:55 MCV 84.2 MCH 26.2 L MCHC 31.1 RDW 15.6 Plt Count 333 MPV 10.5 Immature Gran % (Auto) 0.3 Neut % (Auto) 68.9 Lymph % (Auto) 17.6 L [place] % (Auto) 9.9 Eos % (Auto) 2.8 Baso % (Auto) 0.5 Lymph # (Auto) 1.1 L [place] # (Auto) 0.6 Eos # (Auto) 0.2 Baso # (Auto) 0.0 Abs Immat Gran (auto) 0.02 Absolute Neuts (auto) 4.5 Absolute Nucleated RBC 0.000 Nucleated RBC % (auto) 0.0 PT INR APTT Anion Gap 12 Estim Creat Clear Calc 82.4 Estimated GFR > 60 Random Glucose 72 Calcium 8.9 D COVID-19 (JAS) Negative COVID-19 Clin Com See Note 09/03/21 08:52 MCV MCH MCHC RDW Plt Count MPV Immature Gran % (Auto) Neut % (Auto) Lymph % (Auto) [place] % (Auto) Eos % (Auto) Baso % (Auto) Lymph # (Auto) [place] # (Auto) Eos # (Auto) Baso # (Auto) Abs Immat Gran (auto) Absolute Neuts (auto) Absolute Nucleated RBC Nucleated RBC % (auto) PT 11.9 INR 1.0 APTT 43.3 H Anion Gap Estim Creat Clear Calc Estimated GFR Random Glucose Calcium COVID-19 (JAS) COVID-19 Clin Com ITS Impressions Abdomen/Pelvis CT 09/02/21 18:25 IMPRESSION: Abnormal thickened sigmoid colon in the area of diverticula with apparent invasion of the bladder wall and associated air in the bladder. Differential diagnosis would include carcinoma as well as diverticulitis. I favor the former in light of the presence of what appears to be pulmonary metastases. Of note, a solid 5.6 cm neoplasm, presumably renal cell carcinoma, is present in the right kidney. It is hard to put all the findings together with one diagnosis unless the renal mass is a metastatic lesion. A lung biopsy of one of the pulmonary nodules could be the most illuminating sites to obtain diagnostic tissue. Fleischner guidelines were followed. This critical result was discussed with Dr. Tod Tobar at 7:40 PM on the evening of the exam and it was ascertained that the content and urgency of the report was understood at the time of direct communication. Chest CT 09/03/21 08:21 IMPRESSION: Emphysema. Multiple bilateral pulmonary nodules, largest measuring approximately 1.5 cm.. Infectious, inflammatory and neoplastic processes should be considered. Coronary artery and aortic valve calcification. Fleischner guidelines were followed. Microbiology Microbiology Results: Microbiology 09/02/21 Unknown Urine Culture - Final Urine clean catch - Urine tadeo top No growth. Assessment and Plan (1) [place]-vesical fistula: Status: Acute (2) Colonic mass: Status: Acute (3) Kidney mass: Status: Acute (4) Pulmonary nodule: Status: Acute Plan hospital d#2 71yo M with no chronic conditions, no hx of prior colonoscopy, presenting with hematuria/pneumaturia, 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 2 primary tumors- colon + kidney - Heme/Onc consult pending - GI + Surg consulted; sigmoidoscopy tomorrow with biopsies; clears, then NPO at midnight - Urology consult pending - anemia workup: B12, folate, iron studies - SCDs for VTE ppx Quality Stroke Does the patient have a stroke diagnosis?: No VTE Prior VTE?: No VTE Risk Level:: Medical - moderate - high VTE Device Contraindication: Treatment Not Indicated VTE Drug Contraindication: N/A - Med Ordered
[2021-09-03 17:53] LABS: Iron 27 mcg/dL (45-160); Percent Iron Saturation 9 % (15-50); Total Iron Binding Capacity 297 mcg/dL (228-428); Unsaturated Iron Binding 270 ug/dL
[2021-09-03 18:10] LABS: Ferritin 11 ng/mL (20-250); Prostate Specific Antigen 1.15 ng/mL (<0.05-4.0)
[2021-09-03 18:11] LABS: Prostate Specific Antigen 1.15 ng/mL (<0.05-4.0)
[2021-09-03 23:29] LABS: Folate 11.9 ng/mL (> or = 4.0); Vitamin B12 337 pg/mL (200-900)
[2021-09-03 23:57] VITALS: BP 158/74; PULSE 65; RESP 14; TEMP 36.4; O2SAT 98
[2021-09-04] VITALS (8 sets, daily range): BP systolic 96–166; BP diastolic 43–79; PULSE 68–73; RESP 14–18; TEMP 36.1–37; O2SAT 97–99
[2021-09-04] MEDS: 0.9 % Sodium Chloride Flush 3 ML SYRINGE IVFLUSH ×4 (01:30→23:26)
--- NOTE | 2021-09-04 07:41 | PC.NURSE ---
PATIENT ALERT AND ORIENTED, DENIED PAIN, NPO MAINTAINED FOR SCHEDULED AM PROCEDURE. PT OOB TO BR INDEPENDENTLY AND WHEN ASKED HE STATED NO HEMATURIA AT THIS TIME. WILL CONT TO MONITOR
[2021-09-04] MEDS: Sodium Phosphate,Mono-Dibasic 133 ML ENEMA PR ×2 (11:20→12:34)
--- NOTE | 2021-09-04 12:35 | P.PNIM_ITS ---
Subjective Subjective Date of Service: 09/04/21 Interval History: No acute issues ovenight Review of Systems Denies CP Denies SOB Denies N/V/D Physical Exam Vital Signs: Vital Signs: Last Vital Signs Temp 97.7 F 09/04/21 11:37 Pulse 73 09/04/21 11:37 Resp 18 09/04/21 11:37 BP 162/70 H 09/04/21 11:37 Pulse Ox 99 09/04/21 11:37 BMI result Body Mass Index 21.2 Const: Other: No acute distress Resp: Other: Clear A/P Cardio: Other: -S4 +S1/S2 -S3 M/R/G GI: Other: soft NT/ND. NABS x 4 quads Extrem: Other: no edema Objective Data Active Medications Acetaminophen (Acetaminophen 325 Mg Tablet) 650 mg PO Q6H PRN PRN Reason: Pain, Mild (Pain Scale 1-3) Docusate Sodium (Docusate Sodium 100 Mg Capsule) 100 mg PO DAILY PRN PRN Reason: Constipation Ceftriaxone Sodium 1 gm/ (Sodium Chloride) 50 mls @ 100 mls/hr IV Q24H [facility] Last Infusion: 09/03/21 23:35 Dose: 0 mls/hr Documented by: WINSTON Morphine Sulfate (Morphine Sulfate 4 Mg/Ml Cartridge) 4 mg IVPUSH Q4H PRN; Protocol PRN Reason: Pain, Severe (Pain Scale 7-10) Ondansetron HCl (Ondansetron Hcl 4 Mg/2 Ml Vial) 4 mg IVPUSH Q8H PRN PRN Reason: Nausea and Vomiting Sodium Biphosphate/Sodium Phosphate (Sodium Phosphate,[place]-Dibasic 133 Ml Enema) 133 ml [place] ONCE PRN PRN Reason: Consult order Last Admin: 09/04/21 11:20 Dose: 133 ml Documented by: JASON Sodium Biphosphate/Sodium Phosphate (Sodium Phosphate,[place]-Dibasic 133 Ml Enema) 133 ml [place] ONCE PRN PRN Reason: Consult order Last Admin: 09/04/21 12:34 Dose: 133 ml Documented by: JASON Sodium Chloride (0.9 % Sodium Chloride Flush 3 Ml Syringe) [facility] Last Admin: 09/04/21 08:19 Dose: 3 ml Documented by: JASON Labs CBC & Chem 7: 09/03/21 06:55 09/03/21 06:55 Labs: Laboratory Results - last 24 hr 09/03/21 09/03/21 09/03/21 17:19 17:19 17:19 Iron 27 L TIBC 297 % Saturation 9 L Unsat Iron Binding 270 Ferritin 11 L Carcinoembryonic Ag 3.90 Prostate Specific Ag 1.15 Vitamin B12 337 Folate 11.9 09/03/21 17:19 Iron TIBC % Saturation Unsat Iron Binding Ferritin Carcinoembryonic Ag Prostate Specific Ag 1.15 Vitamin B12 Folate Microbiology Microbiology Results: Microbiology 09/02/21 16:14 Blood Culture - Preliminary Blood - Venous No growth after 24 hours. 09/02/21 16:14 Blood Culture - Preliminary Blood - Venous No growth after 24 hours. 09/02/21 Unknown Urine Culture - Final Urine clean catch - Urine tadeo top No growth. 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 2 primary tumors- colon + kidney - Heme/Onc consult pending - Sigmoid this am....further plans based on forthcoming data - Urology consult pending - SCDs for VTE ppx Quality Stroke Does the patient have a stroke diagnosis?: No VTE Prior VTE?: No VTE Risk Level:: Medical - moderate - high VTE Device Contraindication: Treatment Not Indicated VTE Drug Contraindication: N/A - Med Ordered
--- NOTE | 2021-09-04 13:44 | MHC.SHP ---
Pre-Procedural Eval Section A Date of Service: 09/04/21 The patient is an INPATIENT: Yes The History & Physical has been completed within 30 days and I have reviewed it.: Yes Section B Chief Complaint: malignancy w mets Allergies: Allergies Allergy/AdvReac Type Severity Reaction Status Date / Time No Known Allergies Allergy Verified 09/04/21 12:25 Plan Diagnosis/Plan: Unchanged I have reviewed the history and physical and performed a pertinent physical examination on my patient. No changes have occurred unless specified.
--- NOTE | 2021-09-04 13:44 | PM.OP ---
Brief Operative Note Date of Service: 09/04/21 Pre-op diagnosis: colon mass Post-op diagnosis: same Procedure: see op note Surgeon: Josefina Rubio MD Anesthesia: MAC Was an Executive Director Of Marketing used for this Procedure?: No Estimated blood loss (mL): 0 Condition: stable Disposition: PACU
--- NOTE | 2021-09-04 13:44 | W.PM.OPN ---
Operative Note Operative Note Date of Service: 09/04/21 Narrative: Operative Information Procedure Description: sigmoidoscopy Instrument: Olympus variable stiffness pediatric scope 190L Colonoscopy Monitoring: Vital signs and clinical assessment, continuous EKG monitoring, Pulse oximetry, Carbon Dioxide monitoring and blood pressure monitoring were done throughout the procedure. Procedure: The patient was placed in the left lateral decubitis position and pre-procedure medications were administered. After a digital rectal examination of the ano-rectum, the video colonoscope was inserted into the rectum and advanced to the recto sigmoid jucntion The colonoscope was slowly withdrawn in a retrograde panoramic fashion and the colon mucosa was carefully examined including a retroflexed view of the rectum. Findings and interventions are described below. Procedure Difficulty: easy Findings: At 22 cm from anal verge there was an exophytic mass with hard edges and friability. Biopsies were taken. The lumen was strictured and both the colonoscope and EGD were unable to bypass, Further visualization into the strictured area revealed area proximal to the stricture with necrotic sloughed off tissue. I was unable to assess the proximal most extent of the tumour. Rectum: Retroflexion with small internal hemorrhoids, grade I Anorectum - normal Impression and Post Procedure Diagnosis: colonic mass with almost complete obstruction Plan: keep on soft diet, avoid hard meats, and nuts, laxatives BID surgical consult for possible palliative resection Above findings were reviewed with the patient and relevant handouts were provided if indicated.
--- NOTE | 2021-09-04 14:42 | MHC.CM.PN ---
NURSE CASE MANGER NOTE ELECTRONIC MEDICAL RECORD REVIEWED ALONG WITH CASE DISCUSSED ON MULTIPLE DISCIPLAINRY ROUNDS. MET WITH PATIENT HE IS AWARE OF HIO S PROCEDURE TODAY . PER DOCUMENTTION FOLLOW FROM [facility][PT ( COLONIC MASS ALMOST COMPLETELY OBSTGRUCTED, SOFT DIET AVOID HARD MEAL. PLAN PER DOCUMENTSITON OIS SURGICAL CONSULT FOR POSSIBLE PALATIVE RESECTION,. CASE MANGER TO CONITNUE TO FOLLOW FOR CHANGES IN DISCHARGE NEEDS
--- NOTE | 2021-09-04 14:47 | HO.ANESPROP2 ---
HPI - Anesthesia Eval Consult details Narrative: 71 M w/ mass p/f sigmoidoscopy PMFSH Active Problems Active Problems: All Active Problems (Updated 09/03/21 @ 06:40 by Gabbie Salazar MD) Hematochezia (Acute) Pulmonary nodule (Acute) History of tobacco use (Acute) No pertinent past medical history (Acute) [place]-vesical fistula (Acute) Colonic mass (Acute) Kidney mass (Acute) Abdominal pain (Acute) Rectal fistula (Acute) Bloody stools (Acute) Hematuria (Acute) Past Medical History Medical History No family history of cancer Family History Family History Mother Parkinsons disease Father ESRD (end stage renal disease) Other No family history of cancer Family history of problems with anesthesia: No Surgical History Surgical History History of surgery History of Problems with Anesthesia: No Social History Social History Household Members: Spouse Housing: House Do you presently have visiting nurse or other home services: No Alcohol intake: former Patient Tobacco Use Status: Former Tobacco user e-Cigarette/Vaping Use: Former Use service: No Current occupational status: employed Meds Allergies Allergy/AdvReac Type Severity Reaction Status Date / Time No Known Allergies Allergy Verified 09/04/21 12:25 Active Medications: Current Medications Acetaminophen (Acetaminophen 325 Mg Tablet) 650 mg PO Q6H PRN PRN Reason: Pain, Mild (Pain Scale 1-3) Docusate Sodium (Docusate Sodium 100 Mg Capsule) 100 mg PO DAILY PRN PRN Reason: Constipation Ceftriaxone Sodium 1 gm/ (Sodium Chloride) 50 mls @ 100 mls/hr IV Q24H DMITRY Last Infusion: 09/03/21 23:35 Dose: Infused Documented by: Morphine Sulfate (Morphine Sulfate 4 Mg/Ml Cartridge) 4 mg IVPUSH Q4H PRN; Protocol PRN Reason: Pain, Severe (Pain Scale 7-10) Ondansetron HCl (Ondansetron Hcl 4 Mg/2 Ml Vial) 4 mg IVPUSH Q8H PRN PRN Reason: Nausea and Vomiting Sodium Biphosphate/Sodium Phosphate (Sodium Phosphate,[place]-Dibasic 133 Ml Enema) 133 ml [place] ONCE PRN PRN Reason: Consult order Last Admin: 09/04/21 11:20 Dose: 133 ml Documented by: Sodium Biphosphate/Sodium Phosphate (Sodium Phosphate,[place]-Dibasic 133 Ml Enema) 133 ml [place] ONCE PRN PRN Reason: Consult order Last Admin: 09/04/21 12:34 Dose: 133 ml Documented by: Sodium Chloride (0.9 % Sodium Chloride Flush 3 Ml Syringe) 3 ml IVFLUSH QSHIFT [facility] Last Admin: 09/04/21 08:19 Dose: 3 ml Documented by: Exam Exam Date and Time: September 04, [id number] Height,Weight and Vital Signs: Height 6 ft 2 in Weight 165 lb Last Vital Signs Temp 98.1 F 09/04/21 14:25 Pulse 69 09/04/21 14:25 Resp 18 09/04/21 14:25 BP 96/43 L 09/04/21 14:25 Pulse Ox 97 09/04/21 14:25 Pertinent Lab Results Pertinent Lab Results: Laboratory Tests 09/02/21 09/02/21 09/02/21 12:55 12:57 12:58 WBC 8.2 RBC 3.87 L Hgb 10.7 L Hct 32.5 L MCV 84.0 MCH 27.6 MCHC 32.9 RDW 15.6 Plt Count 360 MPV 9.8 Immature Gran % (Auto) 0.4 Neut % (Auto) 70.2 Lymph % (Auto) 19.5 L [place] % (Auto) 8.8 Eos % (Auto) 0.7 Baso % (Auto) 0.4 Lymph # (Auto) 1.6 [place] # (Auto) 0.7 Eos # (Auto) 0.1 Baso # (Auto) 0.0 Abs Immat Gran (auto) 0.03 Absolute Neuts (auto) 5.8 Absolute Nucleated RBC 0.000 Nucleated RBC % (auto) 0.0 PT INR APTT Sodium 132 L Potassium 4.9 Chloride 99 Carbon Dioxide 26 Anion Gap 12 BUN 14 Creatinine 1.12 Estim Creat Clear Calc 64.0 Estimated GFR > 60 Random Glucose 91 Lactic Acid Calcium 9.5 Iron TIBC % Saturation Unsat Iron Binding Ferritin Carcinoembryonic Ag Prostate Specific Ag Vitamin B12 Folate Urine Color YELLOW Urine Appearance CLOUDY Urine pH 6.0 Ur Specific [place] >= 1.030 H Urine Protein 1+ H Urine Glucose (UA) NEG Urine Ketones NEG Urine Blood 3+ H Urine Nitrite NEG Ur Leukocyte Esterase 2+ H Urine RBC TNTC H Urine WBC TNTC H Ur Squamous Epith Cells 1+ Urine Bacteria 1+ Urine Mucus 1+ COVID-19 (JAS) COVID-19 Clin Com 09/02/21 09/02/21 09/03/21 16:14 16:14 06:55 WBC 6.5 RBC 3.86 L Hgb 10.1 L Hct 32.5 L MCV 84.2 MCH 26.2 L MCHC 31.1 RDW 15.6 Plt Count 333 MPV 10.5 Immature Gran % (Auto) 0.3 Neut % (Auto) 68.9 Lymph % (Auto) 17.6 L [place] % (Auto) 9.9 Eos % (Auto) 2.8 Baso % (Auto) 0.5 Lymph # (Auto) 1.1 L [place] # (Auto) 0.6 Eos # (Auto) 0.2 Baso # (Auto) 0.0 Abs Immat Gran (auto) 0.02 Absolute Neuts (auto) 4.5 Absolute Nucleated RBC 0.000 Nucleated RBC % (auto) 0.0 PT INR APTT Sodium Potassium Chloride Carbon Dioxide Anion Gap BUN Creatinine Estim Creat Clear Calc Estimated GFR Random Glucose Lactic Acid 0.8 Calcium Iron TIBC % Saturation Unsat Iron Binding Ferritin Carcinoembryonic Ag Prostate Specific Ag Vitamin B12 Folate Urine Color Urine Appearance Urine pH Ur Specific [place] Urine Protein Urine Glucose (UA) Urine Ketones Urine Blood Urine Nitrite Ur Leukocyte Esterase Urine RBC Urine WBC Ur Squamous Epith Cells Urine Bacteria Urine Mucus COVID-19 (JAS) Negative COVID-19 Clin Com See Note 09/03/21 09/03/21 09/03/21 06:55 08:52 17:19 WBC RBC Hgb Hct MCV MCH MCHC RDW Plt Count MPV Immature Gran % (Auto) Neut % (Auto) Lymph % (Auto) [place] % (Auto) Eos % (Auto) Baso % (Auto) Lymph # (Auto) [place] # (Auto) Eos # (Auto) Baso # (Auto) Abs Immat Gran (auto) Absolute Neuts (auto) Absolute Nucleated RBC Nucleated RBC % (auto) PT 11.9 INR 1.0 APTT 43.3 H Sodium 132 L Potassium 4.8 Chloride 100 Carbon Dioxide 25 Anion Gap 12 BUN 10 Creatinine 0.87 Estim Creat Clear Calc 82.4 Estimated GFR > 60 Random Glucose 72 Lactic Acid Calcium 8.9 D Iron 27 L TIBC 297 % Saturation 9 L Unsat Iron Binding 270 Ferritin Carcinoembryonic Ag 3.90 Prostate Specific Ag 1.15 Vitamin B12 Folate Urine Color Urine Appearance Urine pH Ur Specific [place] Urine Protein Urine Glucose (UA) Urine Ketones Urine Blood Urine Nitrite Ur Leukocyte Esterase Urine RBC Urine WBC Ur Squamous Epith Cells Urine Bacteria Urine Mucus COVID-19 (JAS) COVID-19 Voxel Com 09/03/21 09/03/21 09/03/21 17:19 17:19 17:19 WBC RBC Hgb Hct MCV MCH MCHC RDW Plt Count MPV Immature Gran % (Auto) Neut % (Auto) Lymph % (Auto) [place] % (Auto) Eos % (Auto) Baso % (Auto) Lymph # (Auto) [place] # (Auto) Eos # (Auto) Baso # (Auto) Abs Immat Gran (auto) Absolute Neuts (auto) Absolute Nucleated RBC Nucleated RBC % (auto) PT INR APTT Sodium Potassium Chloride Carbon Dioxide Anion Gap BUN Creatinine Estim Creat Clear Calc Estimated GFR Random Glucose Lactic Acid Calcium Iron TIBC % Saturation Unsat Iron Binding Ferritin 11 L Carcinoembryonic Ag Prostate Specific Ag 1.15 Vitamin B12 337 Folate 11.9 Urine Color Urine Appearance Urine pH Ur Specific [place] Urine Protein Urine Glucose (UA) Urine Ketones Urine Blood Urine Nitrite Ur Leukocyte Esterase Urine RBC Urine WBC Ur Squamous Epith Cells Urine Bacteria Urine Mucus COVID-19 (JAS) COVID-19 Clin Com Airway Mallampati Class: II TM Dist: >3cm Neck ROM: Full Denture: Upper and Lower Assessment and Plan Assessment Anesthesia Assessment: Anesthesia Plan Discussed and Chart Reviewed Final Anesthetic Review Family History of Problems with Anesthesia: No History of Problems with Anesthesia: No NPO: Yes ASA Class: III Final Preanesthetic Review: No Changes in Pt Med Stat, Meds/Allgs Chart Reviewed, Consent Obtained/Reviewed and Anes Risks/Benef Reviewed Patient Risk: Intermediate Procedure Risk: Low Anesthetic Plan Anesthetic Plan: MAC: Disposition: Standard PACU
--- NOTE | 2021-09-04 15:30 | P.PNGS_ITS ---
Subjective Subjective Date of Service: 09/04/21 Interval history: patient currently denies complaints underwent flexible sigmoidoscopy earlier, tolerated the procedure well passing flatus denies any abdominal pain Physical Exam Vital Signs: Vital Signs: Last Vital Signs Temp 98.1 F 09/04/21 14:25 Pulse 69 09/04/21 14:25 Resp 18 09/04/21 14:25 BP 96/43 L 09/04/21 14:25 Pulse Ox 97 09/04/21 14:25 BMI result Body Mass Index 21.2 Const: General: comfortable and no acute distress Resp: Effort & Inspection: normal respiratory effort Cardio: Rate: regular rate GI: Inspection: No distended Palpation (GI): Soft to palpation, not firm, nontender and no guarding Objective Data Active Medications Acetaminophen (Acetaminophen 325 Mg Tablet) 650 mg PO Q6H PRN PRN Reason: Pain, Mild (Pain Scale 1-3) Docusate Sodium (Docusate Sodium 100 Mg Capsule) 100 mg PO DAILY PRN PRN Reason: Constipation Ceftriaxone Sodium 1 gm/ (Sodium Chloride) 50 mls @ 100 mls/hr IV Q24H [facility] Last Infusion: 09/03/21 23:35 Dose: 0 mls/hr Documented by: WINSTON Morphine Sulfate (Morphine Sulfate 4 Mg/Ml Cartridge) 4 mg IVPUSH Q4H PRN; Protocol PRN Reason: Pain, Severe (Pain Scale 7-10) Ondansetron HCl (Ondansetron Hcl 4 Mg/2 Ml Vial) 4 mg IVPUSH Q8H PRN PRN Reason: Nausea and Vomiting Sodium Biphosphate/Sodium Phosphate (Sodium Phosphate,[place]-Dibasic 133 Ml Enema) 133 ml [place] ONCE PRN PRN Reason: Consult order Last Admin: 09/04/21 11:20 Dose: 133 ml Documented by: JASON Sodium Biphosphate/Sodium Phosphate (Sodium Phosphate,[place]-Dibasic 133 Ml Enema) 133 ml [place] ONCE PRN PRN Reason: Consult order Last Admin: 09/04/21 12:34 Dose: 133 ml Documented by: JASON Sodium Chloride (0.9 % Sodium Chloride Flush 3 Ml Syringe) [facility] Last Admin: 09/04/21 08:19 Dose: 3 ml Documented by: JASON Labs CBC & Chem 7: 09/03/21 06:55 02/09/22 06:55 Labs: Laboratory Results - last 24 hr 09/03/21 09/03/21 09/03/21 17:19 17:19 17:19 Iron 27 L TIBC 297 % Saturation 9 L Unsat Iron Binding 270 Ferritin 11 L Carcinoembryonic Ag 3.90 Prostate Specific Ag 1.15 Vitamin B12 337 Folate 11.9 09/03/21 17:19 Iron TIBC % Saturation Unsat Iron Binding Ferritin Carcinoembryonic Ag Prostate Specific Ag 1.15 Vitamin B12 Folate Microbiology Microbiology Results: Microbiology 09/02/21 16:14 Blood Culture - Preliminary Blood - Venous No growth after 24 hours. 09/02/21 16:14 Blood Culture - Preliminary Blood - Venous No growth after 24 hours. 09/02/21 Unknown Urine Culture - Final Urine clean catch - Urine tadeo top No growth. Procedures Date of Service Date of Service: 09/04/21 Progress Note: A&P Assessment and plan (1) [place]-vesical fistula: Status: Acute Plan status post flexible sigmoidoscopy with Dr. Rubio note of sigmoid mass, biopsies taken mass described as near obstructing patient however denies any abdominal pain, no distension, CT scan does not she suggest obstruction passing flatus has a very benign exam await path report ongoing workup for renal mass as well as pulmonary nodules plan possible resection of the sigmoid with repair of fistula versus diverting stoma will continue to follow closely Fall Risk Details Current Medications: Current Medications Acetaminophen (Acetaminophen 325 Mg Tablet) 650 mg PO Q6H PRN PRN Reason: Pain, Mild (Pain Scale 1-3) Docusate Sodium (Docusate Sodium 100 Mg Capsule) 100 mg PO DAILY PRN PRN Reason: Constipation Ceftriaxone Sodium 1 gm/ (Sodium Chloride) 50 mls @ 100 mls/hr IV Q24H DMITRY Last Infusion: 09/03/21 23:35 Dose: Infused Documented by: Morphine Sulfate (Morphine Sulfate 4 Mg/Ml Cartridge) 4 mg IVPUSH Q4H PRN; Protocol PRN Reason: Pain, Severe (Pain Scale 7-10) Ondansetron HCl (Ondansetron Hcl 4 Mg/2 Ml Vial) 4 mg IVPUSH Q8H PRN PRN Reason: Nausea and Vomiting Sodium Biphosphate/Sodium Phosphate (Sodium Phosphate,[place]-Dibasic 133 Ml Enema) 133 ml [place] ONCE PRN PRN Reason: Consult order Last Admin: 09/04/21 11:20 Dose: 133 ml Documented by: Sodium Biphosphate/Sodium Phosphate (Sodium Phosphate,[place]-Dibasic 133 Ml Enema) 133 ml SD ONCE PRN PRN Reason: Consult order Last Admin: 09/04/21 12:34 Dose: 133 ml Documented by: Sodium Chloride (0.9 % Sodium Chloride Flush 3 Ml Syringe) [facility] Last Admin: 09/04/21 08:19 Dose: 3 ml Documented by: Time Spent With Patient Time: Total time spent is greater than 50% in coordination of care (as documented) at patient's floor/unit and/or counseling patient: Time with patient: 15 - 24 minutes Quality Stroke Does the patient have a stroke diagnosis?: No VTE Prior VTE?: No VTE Risk Level:: Medical - moderate - high VTE Device Contraindication: Treatment Not Indicated VTE Drug Contraindication: N/A - Med Ordered
--- NOTE | 2021-09-04 16:45 | PM.UROCN ---
History of Present Illness Consult details Consult date: 09/04/21 Narrative: David is a pleasant 71-year-old male Recent contact with our office regarding episode of hematuria that resolved with antibiotics Admission to hospital with blood per rectum Imaging shows possible rectal mass with invasion into posterior wall of bladder creating colovesical fistula Secondary findings include right lower pole renal mass and pulmonary nodules consistent with metastatic disease Discussed findings with David Undergoing sigmoidoscopy to determine rectal mass Recommend renal biopsy and possible biopsy of pulmonary nodules to determine oncologic possibility Review of Systems Constitutional: Constitutional: Reports as per HPI and Reports no additional constitutional complaints Cardiovascular: Cardiovascular: Reports as per HPI and Reports no additional cardiovascular complaints Respiratory: Respiratory: Reports as per HPI and Reports no additional respiratory complaints Gastrointestinal: Gastrointestinal: Reports as per HPI and Reports no additional gastrointestinal complaints Genitourinary: Genitourinary: Reports as per HPI Musculoskeletal: Musculoskeletal: Reports no additional musculoskeletal complaints and Reports as per HPI Neurologic: Reports system reviewed and no additional complaints, except as documented and Reports as per HPI PMFSH Past Medical History Medical History No family history of cancer Family History Family History Mother Parkinsons disease Father ESRD (end stage renal disease) Other No family history of cancer Surgical History Surgical History History of surgery Social History Social History Household Members: Spouse Housing: House Do you presently have visiting nurse or other home services: No Alcohol intake: former Patient Tobacco Use Status: Former Tobacco user e-Cigarette/Vaping Use: Former Use service: No Current occupational status: employed Meds Allergies Allergy/AdvReac Type Severity Reaction Status Date / Time No Known Allergies Allergy Verified 09/04/21 12:25 Active Medications: Current Medications Acetaminophen (Acetaminophen 325 Mg Tablet) 650 mg PO Q6H PRN PRN Reason: Pain, Mild (Pain Scale 1-3) Docusate Sodium (Docusate Sodium 100 Mg Capsule) 100 mg PO DAILY PRN PRN Reason: Constipation Ceftriaxone Sodium 1 gm/ (Sodium Chloride) 50 mls @ 100 mls/hr IV Q24H [facility] Last Infusion: 09/03/21 23:35 Dose: Infused Documented by: Morphine Sulfate (Morphine Sulfate 4 Mg/Ml Cartridge) 4 mg IVPUSH Q4H PRN; Protocol PRN Reason: Pain, Severe (Pain Scale 7-10) Ondansetron HCl (Ondansetron Hcl 4 Mg/2 Ml Vial) 4 mg IVPUSH Q8H PRN PRN Reason: Nausea and Vomiting Sodium Biphosphate/Sodium Phosphate (Sodium Phosphate,[place]-Dibasic 133 Ml Enema) 133 ml [place] ONCE PRN PRN Reason: Consult order Last Admin: 09/04/21 11:20 Dose: 133 ml Documented by: Sodium Biphosphate/Sodium Phosphate (Sodium Phosphate,[place]-Dibasic 133 Ml Enema) 133 ml [place] ONCE PRN PRN Reason: Consult order Last Admin: 09/04/21 12:34 Dose: 133 ml Documented by: Sodium Chloride (0.9 % Sodium Chloride Flush 3 Ml Syringe) 3 ml IVFLUSH QSHIFT [facility] Last Admin: 09/04/21 08:19 Dose: 3 ml Documented by: Physical Exam Vital Signs: Vital Signs: Last Vital Signs Temp 98.1 F 09/04/21 14:25 Pulse 69 09/04/21 14:25 Resp 18 09/04/21 14:25 BP 96/43 L 09/04/21 14:25 Pulse Ox 97 09/04/21 14:25 BMI result Body Mass Index 21.2 Const: General: cooperative, healthy appearing, comfortable and no acute distress Orientation/consciousness: patient oriented x3 HENMT: Face and sinus: Yes normal facial exam Mouth: moist mucous membranes Neck: Neck: Yes normal visual inspection, Yes full ROM and Yes trachea midline Chest: Chest palpation & inspection: normal inspection of the chest Resp: Effort & Inspection: normal respiratory effort, able to speak in complete sentences and no respiratory distress GI: Inspection: Yes normal to inspection Back/Spine/Pelvis: Cervical Spine: normal cervical lordosis Thoracic/Lumbar Spine: thoracic and lumbar spine normal to inspection Skin: General skin exam: no rashes or lesions noted Neuro: General: patient oriented x3, tone normal and moves all extremities Extrem: General: Yes normal to inspection and Yes capillary refill normal Results Labs Result diagrams: 09/03/21 06:55 09/03/21 06:55 Labs: Abnormal lab results 09/03/21 09/03/21 Range/Units 17:19 17:19 Iron 27 L (45-160) mcg/dL % Saturation 9 L (15-50) % Ferritin 11 L (20-250) ng/mL Urine 09/02/21 Range/Units 12:55 Urine Color YELLOW Urine Appearance CLOUDY Urine pH 6.0 (5.0-8.0) Ur Specific [place] >= 1.030 H (1.005-1.025) Urine Protein 1+ H (NEG-TRACE) MG/DL Urine Glucose (UA) NEG (NEG) MG/DL All other labs normal. Assessment and Plan (1) Pulmonary nodule: Status: Acute (2) Renal cancer: Status: Acute (3) [place]-vesical fistula: Status: Acute Plan Renal biopsy Discussion with oncology regarding benefit of pulmonary nodule sampling Procedures Date of Service Date of Service: 09/03/21
[2021-09-04] MEDS: cefTRIAXone sodium 1 GM in 0.9 % Sodium Chloride 50 ML IV (23:26)
[2021-09-05 03:44] VITALS: BP 137/72; PULSE 74; RESP 17; TEMP 36.3; O2SAT 98
[2021-09-05 06:10] LABS: MANUAL DIFF FLAG NO
[2021-09-05 06:17] LABS: Basophils Percent Auto 0.3 % (0-2); Eosinophils Absolute Auto 0.2 X10*3/uL (0.0-0.4); Eosinophils Percent Auto 3.3 % (0-4); Hematocrit 34.9 % (42.0-52.0); Hemoglobin 10.6 g/dl (14.0-18.0); Imm Gran Abs Auto 0.02 X10*3/uL (0.00-0.03); Imm Gran Pct Auto 0.3 % (0.0-0.4); Lymphocytes Absolute Auto 1.2 X10*3/uL (1.2-4.9); Lymphocytes Percent Auto 20.5 % (20-40); Mean Corpuscular HGB Conc 30.4 g/dl (31.0-36.0); Mean Corpuscular Hemoglobin 25.7 pg (27.0-33.0); Mean Corpuscular Volume 84.7 fL (80.0-98.0); Monocytes Absolute Auto 0.6 X10*3/uL (0.1-1.2); Neutrophils Absolute Auto 3.8 x10*3/uL (2.0-8.3); Neutrophils Percent Auto 64.6 % (45-73); Platelet Count 361 X10*3/uL (160-400); Red Blood Count 4.12 X10*6/uL (4.60-5.80); Red Cell Distribution Width 15.4 % (11.0-16.0); White Blood Count 5.8 X10*3/uL (4.8-10.8)
[2021-09-05 06:44] LABS: Alanine Aminotransferase 13 U/L (0-40); Albumin Level 3.4 g/dL (3.5-5.0); Alkaline Phosphatase 133 U/L (39-117); Anion Gap 11 (12-20); Aspartate Amino Transferase 19 U/L (5-37); Bilirubin Total 0.2 mg/dL (0.0-1.0); Blood Urea Nitrogen 12 mg/dL (9-16); Calcium 9.1 mg/dL (8.4-10.2); Carbon Dioxide 29 mmol/L (22-29); Chloride 101 mmol/L (96-108); Creatinine Clr Calc Pharmacy 88.5; Estimated Glomerular Filt Rate > 60; Glucose Fasting 84 mg/dL (60-99); Potassium 5.1 mmol/L (3.3-5.1); Sodium 136 mmol/L (135-145); Total Protein 6.3 g/dL (6.5-8.0)
--- NOTE | 2021-09-05 06:45 | HO.POSTANES ---
Post Anesthesia Evaluation Post Anesthesia Evaluation Vital Signs: Vital Signs Temp Pulse Resp BP Pulse Ox 09/05/21 03:44 97.4 F 74 17 137/72 98 09/04/21 23:29 97.6 F 70 18 132/65 98 09/04/21 20:00 97.5 F 73 16 146/75 H 97 Anesthesia: Monitored Mental Status: Awake Pain Control: Satisfactory Nausea/Vomiting: None Hydration: Adequate Anesthesia-Related Issues: No Anes. Related Issues
[2021-09-05 07:29] VITALS: BP 133/63; PULSE 72; RESP 18; TEMP 36.6; O2SAT 99
[2021-09-05] MEDS: 0.9 % Sodium Chloride Flush 3 ML SYRINGE IVFLUSH ×3 (07:44→23:15)
[2021-09-05 10:50] VITALS: BP 147/67; PULSE 81; RESP 18; TEMP 36.5; O2SAT 99
[2021-09-05 13:41] VITALS: BMI 21.2
--- NOTE | 2021-09-05 14:20 | P.PNIM_ITS ---
Subjective Subjective Date of Service: 09/05/21 Interval History: No acute issues overnight Review of Systems Denies CP Denies SOB Denies N/V/D Physical Exam Vital Signs: Vital Signs: Last Vital Signs Temp 97.7 F 09/05/21 10:50 Pulse 81 09/05/21 10:50 Resp 18 09/05/21 10:50 BP 147/67 H 09/05/21 10:50 Pulse Ox 99 09/05/21 10:50 BMI result Body Mass Index 21.2 Const: Other: No acute distress Resp: Other: Clear A/P Cardio: Other: -S4 +S1/S -S3 MRG GI: Other: soft NT/ND NABS x 4 quads Extrem: Other: no edema Objective Data Active Medications Acetaminophen (Acetaminophen 325 Mg Tablet) 650 mg PO Q6H PRN PRN Reason: Pain, Mild (Pain Scale 1-3) Docusate Sodium (Docusate Sodium 100 Mg Capsule) 100 mg PO DAILY PRN PRN Reason: Constipation Ceftriaxone Sodium 1 gm/ (Sodium Chloride) 50 mls @ 100 mls/hr IV Q24H [facility] Last Infusion: 09/04/21 23:59 Dose: 0 mls/hr Documented by: STEPHANIE Morphine Sulfate (Morphine Sulfate 4 Mg/Ml Cartridge) 4 mg IVPUSH Q4H PRN; Protocol PRN Reason: Pain, Severe (Pain Scale 7-10) Ondansetron HCl (Ondansetron Hcl 4 Mg/2 Ml Vial) 4 mg IVPUSH Q8H PRN PRN Reason: Nausea and Vomiting Sodium Biphosphate/Sodium Phosphate (Sodium Phosphate,[place]-Dibasic 133 Ml Enema) 133 ml [place] ONCE PRN PRN Reason: Consult order Last Admin: 09/04/21 11:20 Dose: 133 ml Documented by: JASON Sodium Biphosphate/Sodium Phosphate (Sodium Phosphate,[place]-Dibasic 133 Ml Enema) 133 ml [place] ONCE PRN PRN Reason: Consult order Last Admin: 09/04/21 12:34 Dose: 133 ml Documented by: JASON Sodium Chloride (0.9 % Sodium Chloride Flush 3 Ml Syringe) 3 ml IVFLUSH [facility] Last Admin: 09/05/21 07:44 Dose: 3 ml Documented by: MAKENNA Labs CBC & Chem 7: 09/05/21 05:40 09/05/21 05:40 Labs: Laboratory Results - last 24 hr 09/05/21 09/05/21 05:40 05:40 MCV 84.7 MCH 25.7 L MCHC 30.4 L RDW 15.4 Plt Count 361 MPV 10.0 Immature Gran % (Auto) 0.3 Neut % (Auto) 64.6 Lymph % (Auto) 20.5 [place] % (Auto) 11.0 Eos % (Auto) 3.3 Baso % (Auto) 0.3 Lymph # (Auto) 1.2 [place] # (Auto) 0.6 Eos # (Auto) 0.2 Baso # (Auto) 0.0 Abs Immat Gran (auto) 0.02 Absolute Neuts (auto) 3.8 Absolute Nucleated RBC 0.000 Nucleated RBC % (auto) 0.0 Anion Gap 11 L Estim Creat Clear Calc 88.5 Estimated GFR > 60 Fasting Glucose 84 Calcium 9.1 Total Bilirubin 0.2 AST 19 ALT 13 Alkaline Phosphatase 133 H Total Protein 6.3 L Albumin 3.4 L Microbiology Microbiology Results: Microbiology 09/02/21 16:14 Blood Culture - Preliminary Blood - Venous No growth after 48 hours. 09/02/21 16:14 Blood Culture - Preliminary Blood - Venous No growth after 48 hours. 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 2 primary tumors- colon + kidney - Heme/Onc consult pending - Sigmoidoscopy demonstrated sigmoid mass. Dr Downing to resect early next week -will need renal Bx...hopeful;ly 09/08 21 - SCDs for VTE ppx Quality Stroke Does the patient have a stroke diagnosis?: No VTE Prior VTE?: No VTE Risk Level:: Medical - moderate - high VTE Device Contraindication: Treatment Not Indicated VTE Drug Contraindication: N/A - Med Ordered
[2021-09-05 15:15] VITALS: BP 140/66; PULSE 76; RESP 18; TEMP 36.5; O2SAT 96
--- NOTE | 2021-09-05 16:59 | PM.PNGS ---
Subjective Subjective Date of Service: 09/05/21 Interval history: comfortable passing flatus denies any abdominal pain says he feels well Physical Exam Vital Signs: Vital Signs: Last Vital Signs Temp 97.7 F 09/05/21 15:15 Pulse 76 09/05/21 15:15 Resp 18 09/05/21 15:15 BP 140/66 H 09/05/21 15:15 Pulse Ox 96 09/05/21 15:15 BMI result Body Mass Index 21.2 Const: General: comfortable and no acute distress Resp: Effort & Inspection: normal respiratory effort Cardio: Rate: regular rate GI: Palpation (GI): Soft to palpation and nontender Objective Data Active Medications Acetaminophen (Acetaminophen 325 Mg Tablet) 650 mg PO Q6H PRN PRN Reason: Pain, Mild (Pain Scale 1-3) Docusate Sodium (Docusate Sodium 100 Mg Capsule) 100 mg PO DAILY PRN PRN Reason: Constipation Ceftriaxone Sodium 1 gm/ (Sodium Chloride) 50 mls @ 100 mls/hr IV Q24H [facility] Last Infusion: 09/04/21 23:59 Dose: 0 mls/hr Documented by: STEPHANIE Morphine Sulfate (Morphine Sulfate 4 Mg/Ml Cartridge) 4 mg IVPUSH Q4H PRN; Protocol PRN Reason: Pain, Severe (Pain Scale 7-10) Ondansetron HCl (Ondansetron Hcl 4 Mg/2 Ml Vial) 4 mg IVPUSH Q8H PRN PRN Reason: Nausea and Vomiting Sodium Biphosphate/Sodium Phosphate (Sodium Phosphate,[place]-Dibasic 133 Ml Enema) 133 ml LA ONCE PRN PRN Reason: Consult order Last Admin: 09/04/21 11:20 Dose: 133 ml Documented by: JASON Sodium Biphosphate/Sodium Phosphate (Sodium Phosphate,[place]-Dibasic 133 Ml Enema) 133 ml LA ONCE PRN PRN Reason: Consult order Last Admin: 09/04/21 12:34 Dose: 133 ml Documented by: JASON Sodium Chloride (0.9 % Sodium Chloride Flush 3 Ml Syringe) 3 ml IVFLUSH [facility] Last Admin: 09/05/21 16:16 Dose: 3 ml Documented by: MAKENNA Labs CBC & Chem 7: 09/05/21 05:40 09/05/21 05:40 Labs: Laboratory Results - last 24 hr 09/05/21 09/05/21 05:40 05:40 MCV 84.7 MCH 25.7 L MCHC 30.4 L RDW 15.4 Plt Count 361 MPV 10.0 Immature Gran % (Auto) 0.3 Neut % (Auto) 64.6 Lymph % (Auto) 20.5 [place] % (Auto) 11.0 Eos % (Auto) 3.3 Baso % (Auto) 0.3 Lymph # (Auto) 1.2 [place] # (Auto) 0.6 Eos # (Auto) 0.2 Baso # (Auto) 0.0 Abs Immat Gran (auto) 0.02 Absolute Neuts (auto) 3.8 Absolute Nucleated RBC 0.000 Nucleated RBC % (auto) 0.0 Anion Gap 11 L Estim Creat Clear Calc 88.5 Estimated GFR > 60 Fasting Glucose 84 Calcium 9.1 Total Bilirubin 0.2 AST 19 ALT 13 Alkaline Phosphatase 133 H Total Protein 6.3 L Albumin 3.4 L Microbiology Microbiology Results: Microbiology 09/02/21 16:14 Blood Culture - Preliminary Blood - Venous No growth after 48 hours. 09/02/21 16:14 Blood Culture - Preliminary Blood - Venous No growth after 48 hours. Procedures Date of Service Date of Service: 09/05/21 Progress Note: A&P Assessment and plan (1) [place]-vesical fistula: Status: Acute Assessment and Plan: denies abdominal pain doing well awaiting workup for kidney mass, pulmonary lesions underwent biopsy for sigmoid mass, pending likely sigmoid resection/ stoma next week depending on path reports, workup looks well Fall Risk Details Current Medications: Current Medications Acetaminophen (Acetaminophen 325 Mg Tablet) 650 mg PO Q6H PRN PRN Reason: Pain, Mild (Pain Scale 1-3) Docusate Sodium (Docusate Sodium 100 Mg Capsule) 100 mg PO DAILY PRN PRN Reason: Constipation Ceftriaxone Sodium 1 gm/ (Sodium Chloride) 50 mls @ 100 mls/hr IV Q24H [facility] Last Infusion: 09/04/21 23:59 Dose: Infused Documented by: Morphine Sulfate (Morphine Sulfate 4 Mg/Ml Cartridge) 4 mg IVPUSH Q4H PRN; Protocol PRN Reason: Pain, Severe (Pain Scale 7-10) Ondansetron HCl (Ondansetron Hcl 4 Mg/2 Ml Vial) 4 mg IVPUSH Q8H PRN PRN Reason: Nausea and Vomiting Sodium Biphosphate/Sodium Phosphate (Sodium Phosphate,[place]-Dibasic 133 Ml Enema) 133 ml LA ONCE PRN PRN Reason: Consult order Last Admin: 09/04/21 11:20 Dose: 133 ml Documented by: Sodium Biphosphate/Sodium Phosphate (Sodium Phosphate,[place]-Dibasic 133 Ml Enema) 133 ml LA ONCE PRN PRN Reason: Consult order Last Admin: 09/04/21 12:34 Dose: 133 ml Documented by: Sodium Chloride (0.9 % Sodium Chloride Flush 3 Ml Syringe) [facility] Last Admin: 09/05/21 16:16 Dose: 3 ml Documented by: Time Spent With Patient Time: Total time spent is greater than 50% in coordination of care (as documented) at patient's floor/unit and/or counseling patient: Time with patient: 15 - 24 minutes Quality Stroke Does the patient have a stroke diagnosis?: No VTE Prior VTE?: No VTE Risk Level:: Medical - moderate - high VTE Device Contraindication: Treatment Not Indicated VTE Drug Contraindication: N/A - Med Ordered
[2021-09-05 20:00] VITALS: BP 134/67; PULSE 80; TEMP 36.6; O2SAT 98
[2021-09-05] MEDS: cefTRIAXone sodium 1 GM in 0.9 % Sodium Chloride 50 ML IV (23:15)
[2021-09-05 23:24] VITALS: BP 140/65; PULSE 69; RESP 17; TEMP 36.2; O2SAT 98
[2021-09-06 03:26] VITALS: BP 158/75; PULSE 65; RESP 18; TEMP 36.6; O2SAT 98
[2021-09-06 06:17] LABS: MANUAL DIFF FLAG NO
[2021-09-06 06:23] LABS: Basophils Percent Auto 0.3 % (0-2); Eosinophils Absolute Auto 0.2 X10*3/uL (0.0-0.4); Eosinophils Percent Auto 3.1 % (0-4); Hematocrit 35.2 % (42.0-52.0); Hemoglobin 10.9 g/dl (14.0-18.0); Imm Gran Abs Auto 0.02 X10*3/uL (0.00-0.03); Imm Gran Pct Auto 0.3 % (0.0-0.4); Lymphocytes Absolute Auto 1.4 X10*3/uL (1.2-4.9); Lymphocytes Percent Auto 23.4 % (20-40); Mean Platelet Volume 9.9 fL (9.4-12.4); Monocytes Absolute Auto 0.6 X10*3/uL (0.1-1.2); Monocytes Percent Auto 9.4 % (2-11); Neutrophils Absolute Auto 3.7 x10*3/uL (2.0-8.3); Neutrophils Percent Auto 63.5 % (45-73); Platelet Count 386 X10*3/uL (160-400); Red Blood Count 4.19 X10*6/uL (4.60-5.80); Red Cell Distribution Width 15.6 % (11.0-16.0); White Blood Count 5.9 X10*3/uL (4.8-10.8)
[2021-09-06 06:55] LABS: Alanine Aminotransferase 15 U/L (0-40); Albumin Level 3.5 g/dL (3.5-5.0); Alkaline Phosphatase 128 U/L (39-117); Anion Gap 13 (12-20); Aspartate Amino Transferase 20 U/L (5-37); Bilirubin Total 0.2 mg/dL (0.0-1.0); Blood Urea Nitrogen 14 mg/dL (9-16); Calcium 9.1 mg/dL (8.4-10.2); Carbon Dioxide 27 mmol/L (22-29); Chloride 100 mmol/L (96-108); Creatinine Clr Calc Pharmacy 89.6; Estimated Glomerular Filt Rate > 60; Glucose Fasting 105 mg/dL (60-99); Potassium 4.8 mmol/L (3.3-5.1); Sodium 135 mmol/L (135-145); Total Protein 6.5 g/dL (6.5-8.0)
[2021-09-06 07:41] VITALS: BP 139/77; PULSE 77; RESP 20; TEMP 36.7; O2SAT 99
[2021-09-06] MEDS: Docusate Sodium 100 MG CAPSULE PO ×2 (09:01→20:52)
[2021-09-06] MEDS: 0.9 % Sodium Chloride Flush 3 ML SYRINGE IVFLUSH ×2 (09:02→15:28)
--- NOTE | 2021-09-06 10:58 | P.PNIM_ITS ---
Subjective Subjective Date of Service: 09/06/21 Interval History: No acute issues overnight Review of Systems Denies CP Denies SOB Denies N/V/D Physical Exam Vital Signs: Vital Signs: Last Vital Signs Temp 98.1 F 09/06/21 07:41 Pulse 77 09/06/21 07:41 Resp 20 09/06/21 07:41 BP 139/77 09/06/21 07:41 Pulse Ox 99 09/06/21 07:41 BMI result Body Mass Index 21.2 Const: Other: No acute distress Resp: Other: Clear A/P Cardio: Other: -S4 +S1/S -S3 MRG GI: Other: soft NT/ND NABS x 4 quads Extrem: Other: no edema Objective Data Active Medications Acetaminophen (Acetaminophen 325 Mg Tablet) 650 mg PO Q6H PRN PRN Reason: Pain, Mild (Pain Scale 1-3) Docusate Sodium (Docusate Sodium 100 Mg Capsule) 100 mg PO BID [facility] Last Admin: 09/06/21 10:27 Dose: Not Given Documented by: MOHIT Non-Admin Reason: See Note Comments: given PRN Ceftriaxone Sodium 1 gm/ (Sodium Chloride) 50 mls @ 100 mls/hr IV Q24H [facility] Last Infusion: 09/06/21 00:07 Dose: 0 mls/hr Documented by: PAULETTE Morphine Sulfate (Morphine Sulfate 4 Mg/Ml Cartridge) 4 mg IVPUSH Q4H PRN; Protocol PRN Reason: Pain, Severe (Pain Scale 7-10) Ondansetron HCl (Ondansetron Hcl 4 Mg/2 Ml Vial) 4 mg IVPUSH Q8H PRN PRN Reason: Nausea and Vomiting Sodium Biphosphate/Sodium Phosphate (Sodium Phosphate,[place]-Dibasic 133 Ml Enema) 133 ml [place] ONCE PRN PRN Reason: Consult order Last Admin: 09/04/21 11:20 Dose: 133 ml Documented by: JASON Sodium Biphosphate/Sodium Phosphate (Sodium Phosphate,[place]-Dibasic 133 Ml Enema) 133 ml [place] ONCE PRN PRN Reason: Consult order Last Admin: 09/04/21 12:34 Dose: 133 ml Documented by: JASON Sodium Chloride (0.9 % Sodium Chloride Flush 3 Ml Syringe) 3 ml IVFLUSH QSHIFT [facility] Last Admin: 09/06/21 09:02 Dose: 3 ml Documented by: MOHIT Labs CBC & Chem 7: 09/06/21 05:37 09/06/21 05:37 Labs: Laboratory Results - last 24 hr 09/06/21 09/06/21 05:37 05:37 MCV 84.0 MCH 26.0 L MCHC 31.0 RDW 15.6 Plt Count 386 MPV 9.9 Immature Gran % (Auto) 0.3 Neut % (Auto) 63.5 Lymph % (Auto) 23.4 [place] % (Auto) 9.4 Eos % (Auto) 3.1 Baso % (Auto) 0.3 Lymph # (Auto) 1.4 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 2 primary tumors- colon + kidney, HD stable...asymptomatic - Heme/Onc consult pending - Sigmoidoscopy demonstrated sigmoid mass. Dr Downing to resect early next week - will need renal/pulm Bx...hopefully 09/08 - SCDs for VTE ppx Quality Stroke Does the patient have a stroke diagnosis?: No VTE Prior VTE?: No VTE Risk Level:: Medical - moderate - high VTE Device Contraindication: Treatment Not Indicated VTE Drug Contraindication: N/A - Med Ordered
[2021-09-06 12:00] VITALS: BP 137/76; PULSE 76; RESP 18; TEMP 36.5; O2SAT 99
[2021-09-06 15:36] VITALS: BP 140/72; PULSE 82; RESP 18; TEMP 36.6; O2SAT 100
[2021-09-06 18:52] VITALS: BP 134/69; PULSE 73; RESP 18; TEMP 36.6; O2SAT 92
[2021-09-06] MEDS: cefTRIAXone sodium 1 GM in 0.9 % Sodium Chloride 50 ML IV (20:52)
[2021-09-06 23:56] VITALS: BP 144/68; PULSE 68; RESP 18; TEMP 36; O2SAT 99
[2021-09-07 03:35] VITALS: BP 165/75; PULSE 69; RESP 18; TEMP 36.7; O2SAT 100
[2021-09-07 08:00] VITALS: BP 122/62; PULSE 87; RESP 20; TEMP 36.3; O2SAT 98
[2021-09-07] MEDS: 0.9 % Sodium Chloride Flush 3 ML SYRINGE IVFLUSH ×3 (09:13→20:52)
[2021-09-07] MEDS: Docusate Sodium 100 MG CAPSULE PO ×2 (09:13→20:52)
[2021-09-07 12:00] VITALS: BP 116/62; PULSE 76; RESP 20; TEMP 36.2; O2SAT 98
--- NOTE | 2021-09-07 13:26 | P.PNIM_ITS ---
Subjective Subjective Date of Service: 09/07/21 Interval History: No acute issues overnight Review of Systems Denies CP Denies SOB Denies N/V/D Physical Exam Vital Signs: Vital Signs: Last Vital Signs Temp 97.2 F 09/07/21 12:00 Pulse 76 09/07/21 12:00 Resp 20 09/07/21 12:00 BP 116/62 09/07/21 12:00 Pulse Ox 98 09/07/21 12:00 BMI result Body Mass Index 21.2 Const: Other: No acute distress Resp: Other: Clear A/P Cardio: Other: -S4 +S1/S -S3 MRG GI: Other: soft NT/ND NABS x 4 quads Extrem: Other: no edema Objective Data Active Medications Acetaminophen (Acetaminophen 325 Mg Tablet) 650 mg PO Q6H PRN PRN Reason: Pain, Mild (Pain Scale 1-3) Docusate Sodium (Docusate Sodium 100 Mg Capsule) 100 mg PO BID [facility] Last Admin: 09/07/21 09:13 Dose: 100 mg Documented by: MALLIKA Ceftriaxone Sodium 1 gm/ (Sodium Chloride) 50 mls @ 100 mls/hr IV Q24H [facility] Last Infusion: 09/06/21 21:27 Dose: 0 mls/hr Documented by: WINSTON Morphine Sulfate (Morphine Sulfate 4 Mg/Ml Cartridge) 4 mg IVPUSH Q4H PRN; Protocol PRN Reason: Pain, Severe (Pain Scale 7-10) Ondansetron HCl (Ondansetron Hcl 4 Mg/2 Ml Vial) 4 mg IVPUSH Q8H PRN PRN Reason: Nausea and Vomiting Sodium Biphosphate/Sodium Phosphate (Sodium Phosphate,[place]-Dibasic 133 Ml Enema) 133 ml ID ONCE PRN PRN Reason: Consult order Last Admin: 09/04/21 11:20 Dose: 133 ml Documented by: JASON Sodium Biphosphate/Sodium Phosphate (Sodium Phosphate,[place]-Dibasic 133 Ml Enema) 133 ml ID ONCE PRN PRN Reason: Consult order Last Admin: 09/04/21 12:34 Dose: 133 ml Documented by: JASON Sodium Chloride (0.9 % Sodium Chloride Flush 3 Ml Syringe) [facility] Last Admin: 09/07/21 09:13 Dose: 3 ml Documented by: MALLIKA Labs CBC & Chem 7: 09/06/21 05:37 09/06/21 05:37 Assessment and Plan (1) Pulmonary nodule: Status: Acute (2) Colonic mass: Status: Acute Plan 71yo M with no chronic conditions, no hx of prior colonoscopy, presenting with hematuria/pneumaturia, 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 2 primary tumors- colon + kidney, HD stable...asymptomatic - Heme/Onc consult pending - Sigmoidoscopy demonstrated sigmoid mass. Dr Downing to resect early next week - renal/pulm Bx.. 09/08 - SCDs for VTE ppx Quality Stroke Does the patient have a stroke diagnosis?: No VTE Prior VTE?: No VTE Risk Level:: Medical - moderate - high VTE Device Contraindication: Treatment Not Indicated VTE Drug Contraindication: N/A - Med Ordered
[2021-09-07 15:20] VITALS: BP 138/67; PULSE 73; RESP 15; TEMP 36.1; O2SAT 98
[2021-09-07 19:22] VITALS: BP 135/68; PULSE 80; RESP 18; TEMP 36.8; O2SAT 98
[2021-09-07] MEDS: cefTRIAXone sodium 1 GM in 0.9 % Sodium Chloride 50 ML IV (22:44)
[2021-09-08] VITALS (13 sets, daily range): BP systolic 109–176; BP diastolic 49–79; PULSE 65–80; RESP 14–18; TEMP 35.9–36.8; O2SAT 96–99
[2021-09-08 05:41] LABS: MANUAL DIFF FLAG NO
[2021-09-08 05:48] LABS: Basophils Percent Auto 0.4 % (0-2); Eosinophils Absolute Auto 0.2 X10*3/uL (0.0-0.4); Eosinophils Percent Auto 2.1 % (0-4); Hematocrit 35.2 % (42.0-52.0); Hemoglobin 10.7 g/dl (14.0-18.0); Imm Gran Abs Auto 0.02 X10*3/uL (0.00-0.03); Imm Gran Pct Auto 0.2 % (0.0-0.4); Lymphocytes Absolute Auto 1.3 X10*3/uL (1.2-4.9); Lymphocytes Percent Auto 15.5 % (20-40); Mean Corpuscular HGB Conc 30.4 g/dl (31.0-36.0); Mean Corpuscular Hemoglobin 25.7 pg (27.0-33.0); Mean Corpuscular Volume 84.4 fL (80.0-98.0); Mean Platelet Volume 10.1 fL (9.4-12.4); Monocytes Absolute Auto 0.7 X10*3/uL (0.1-1.2); Monocytes Percent Auto 8.8 % (2-11); Neutrophils Absolute Auto 5.9 x10*3/uL (2.0-8.3); Platelet Count 398 X10*3/uL (160-400); Red Blood Count 4.17 X10*6/uL (4.60-5.80); Red Cell Distribution Width 15.4 % (11.0-16.0)
[2021-09-08 05:55] LABS: Prothrombin Time 11.6 SEC (9.9-13.0)
[2021-09-08 06:08] LABS: Alanine Aminotransferase 17 U/L (0-40); Albumin Level 3.4 g/dL (3.5-5.0); Alkaline Phosphatase 116 U/L (39-117); Anion Gap 13 (12-20); Aspartate Amino Transferase 19 U/L (5-37); Bilirubin Total 0.2 mg/dL (0.0-1.0); Blood Urea Nitrogen 14 mg/dL (9-16); Calcium 9.2 mg/dL (8.4-10.2); Carbon Dioxide 26 mmol/L (22-29); Chloride 100 mmol/L (96-108); Creatinine Clr Calc Pharmacy 90.7; Estimated Glomerular Filt Rate > 60; Glucose Fasting 102 mg/dL (60-99); Potassium 4.9 mmol/L (3.3-5.1); Sodium 134 mmol/L (135-145); Total Protein 6.3 g/dL (6.5-8.0)
[2021-09-08] MEDS: 0.9 % Sodium Chloride Flush 3 ML SYRINGE IVFLUSH ×3 (09:24→23:10)
--- NOTE | 2021-09-08 12:01 | MHC.CLN ---
F/U CURRENTLY NPO FOR A PROCEDURE. EATING WELL PRIOR TO NPO AND LIKES RECEIVING ENSURE SUPPLEMENT. RESUME REGULAR DIET WITH ENSURE BID WHEN APPROPRIATE.
--- NOTE | 2021-09-08 12:05 | HO.PM.IMPN ---
Subjective Subjective Date of Service: 09/08/21 Interval History: No acute issues overnight Review of Systems Denies CP Denies SOB Denies N/V/D Physical Exam Vital Signs: Vital Signs: Last Vital Signs Temp 97.2 F 09/08/21 07:42 Pulse 79 09/08/21 07:42 Resp 18 09/08/21 07:42 BP 139/73 09/08/21 07:42 Pulse Ox 98 09/08/21 07:42 BMI result Body Mass Index 21.2 Const: Other: No acute distress Resp: Other: Clear A/P Cardio: Other: -S4 +S1/S -S3 MRG GI: Other: soft NT/ND NABS x 4 quads Extrem: Other: no edema Objective Data Active Medications Acetaminophen (Acetaminophen 325 Mg Tablet) 650 mg PO Q6H PRN PRN Reason: Pain, Mild (Pain Scale 1-3) Docusate Sodium (Docusate Sodium 100 Mg Capsule) 100 mg PO BID [facility] Last Admin: 09/08/21 11:58 Dose: Not Given Documented by: CHANDA Non-Admin Reason: NPO Ceftriaxone Sodium 1 gm/ (Sodium Chloride) 50 mls @ 100 mls/hr IV Q24H [facility] Last Infusion: 09/07/21 23:37 Dose: 0 mls/hr Documented by: STEPHANIE Ondansetron HCl (Ondansetron Hcl 4 Mg/2 Ml Vial) 4 mg IVPUSH Q8H PRN PRN Reason: Nausea and Vomiting Sodium Biphosphate/Sodium Phosphate (Sodium Phosphate,[place]-Dibasic 133 Ml Enema) 133 ml [place] ONCE PRN PRN Reason: Consult order Last Admin: 09/04/21 11:20 Dose: 133 ml Documented by: JASON Sodium Biphosphate/Sodium Phosphate (Sodium Phosphate,[place]-Dibasic 133 Ml Enema) 133 ml [place] ONCE PRN PRN Reason: Consult order Last Admin: 09/04/21 12:34 Dose: 133 ml Documented by: JASON Sodium Chloride (0.9 % Sodium Chloride Flush 3 Ml Syringe) 3 ml IVFLUSH QSHIFT [facility] Last Admin: 09/08/21 09:24 Dose: 3 ml Documented by: CHANDA Labs CBC & Chem 7: 09/08/21 05:16 09/08/21 05:16 Labs: Laboratory Results - last 24 hr 02/14/22 02/14/22 02/14/22 05:16 05:16 05:16 MCV 84.4 MCH 25.7 L MCHC 30.4 L RDW 15.4 Plt Count 398 MPV 10.1 Immature Gran % (Auto) 0.2 Neut % (Auto) 73.0 Lymph % (Auto) 15.5 L [place] % (Auto) 8.8 Eos % (Auto) 2.1 Baso % (Auto) 0.4 Lymph # (Auto) 1.3 [place] # (Auto) 0.7 Eos # (Auto) 0.2 Baso # (Auto) 0.0 Abs Immat Gran (auto) 0.02 Absolute Neuts (auto) 5.9 Absolute Nucleated RBC 0.000 Nucleated RBC % (auto) 0.0 PT 11.6 INR 1.0 Anion Gap 13 Estim Creat Clear Calc 90.7 Estimated GFR > 60 Fasting Glucose 102 H Calcium 9.2 Total Bilirubin 0.2 AST 19 ALT 17 Alkaline Phosphatase 116 Total Protein 6.3 L Albumin 3.4 L Microbiology Microbiology Results: Microbiology 09/02/21 16:14 Blood Culture - Final Blood - Venous No growth after 5 days. 09/02/21 16:14 Blood Culture - Final Blood - Venous No growth after 5 days. 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 2 primary tumors- colon + kidney, HD stable...asymptomatic - Heme/Onc consult pending - Sigmoidoscopy demonstrated sigmoid mass. Dr Downing to resect early next week - renal/pulm Bx.today - SCDs for VTE ppx Quality Stroke Does the patient have a stroke diagnosis?: No VTE Prior VTE?: No VTE Risk Level:: Medical - moderate - high VTE Device Contraindication: Treatment Not Indicated VTE Drug Contraindication: N/A - Med Ordered
--- NOTE | 2021-09-08 14:02 | MHC.CM.PN ---
Addendum entered by Caro Villafuerte 09/08/21 15:49: nurse case assembler note patients daughter came in with paperwork for power of pottery striper secondary to patients newly diagnosis, patient accepting of this and willirug to sig paper work quentin ibrahim patients signature AND COMPLETED ALL PAPERWORK , COPY OF THIS WAS UPLOADED TO THE [employer] AND COPY IN PATIENT S HARD COVER CHART Original Note: NURSE OPTOMETRIST/PRACTICE OWNER NOTE ELECTRONIC MEDICAL RECORD REVIEWED ALONG WITH CASE DISCUSSED ON MULTIPLE DISCIPLIANRY ROUNDS .PRESENTED HEMATURIA/PNEUMATURIA FOUND TO HAVE COON MASS ON PREVIOUS COLONOSCOPY MASS INVADIUNG THE BLADDER RESULTING IN COLON VESICAL FISTULA , RENAL MASS PULMONARY MASS FOR RENAL PULMONARY BX TODAY . PLAN IS FOR COLON RESECTION SOMETIME THIS WEEK
--- NOTE | 2021-09-08 14:34 | PM.PNGS ---
Subjective Subjective Date of Service: 09/08/21 Interval history: Has been doing well Denies any pain Denies any abdominal discomfort He says he actually feels well Physical Exam Vital Signs: Vital Signs: Last Vital Signs Temp 97.0 F 09/08/21 14:20 Pulse 67 09/08/21 14:20 Resp 16 09/08/21 14:20 BP 117/54 L 09/08/21 14:20 Pulse Ox 99 09/08/21 14:20 BMI result Body Mass Index 21.2 Const: General: comfortable and no acute distress Resp: Effort & Inspection: normal respiratory effort Cardio: Rhythm: regular rhythm GI: Palpation (GI): Soft to palpation, not firm and nontender Objective Data Active Medications Acetaminophen (Acetaminophen 325 Mg Tablet) 650 mg PO Q6H PRN PRN Reason: Pain, Mild (Pain Scale 1-3) Docusate Sodium (Docusate Sodium 100 Mg Capsule) 100 mg PO BID [facility] Last Admin: 09/08/21 11:58 Dose: Not Given Documented by: CHANDA Non-Admin Reason: NPO Ceftriaxone Sodium 1 gm/ (Sodium Chloride) 50 mls @ 100 mls/hr IV Q24H [facility] Last Infusion: 09/07/21 23:37 Dose: 0 mls/hr Documented by: STEPHANIE Ondansetron HCl (Ondansetron Hcl 4 Mg/2 Ml Vial) 4 mg IVPUSH Q8H PRN PRN Reason: Nausea and Vomiting Sodium Biphosphate/Sodium Phosphate (Sodium Phosphate,[place]-Dibasic 133 Ml Enema) 133 ml MO ONCE PRN PRN Reason: Consult order Last Admin: 09/04/21 11:20 Dose: 133 ml Documented by: JASON Sodium Biphosphate/Sodium Phosphate (Sodium Phosphate,[place]-Dibasic 133 Ml Enema) 133 ml MO ONCE PRN PRN Reason: Consult order Last Admin: 09/04/21 12:34 Dose: 133 ml Documented by: JASON Sodium Chloride (0.9 % Sodium Chloride Flush 3 Ml Syringe) 3 ml IVFLUSH QSHIFT [facility] Last Admin: 09/08/21 09:24 Dose: 3 ml Documented by: CHANDA Labs CBC & Chem 7: 09/08/21 05:16 09/08/21 05:16 Labs: Laboratory Results - last 24 hr 09/08/21 09/08/21 09/08/21 05:16 05:16 05:16 MCV 84.4 MCH 25.7 L MCHC 30.4 L RDW 15.4 Plt Count 398 MPV 10.1 Immature Gran % (Auto) 0.2 Neut % (Auto) 73.0 Lymph % (Auto) 15.5 L [place] % (Auto) 8.8 Eos % (Auto) 2.1 Baso % (Auto) 0.4 Lymph # (Auto) 1.3 [place] # (Auto) 0.7 Eos # (Auto) 0.2 Baso # (Auto) 0.0 Abs Immat Gran (auto) 0.02 Absolute Neuts (auto) 5.9 Absolute Nucleated RBC 0.000 Nucleated RBC % (auto) 0.0 PT 11.6 INR 1.0 Anion Gap 13 Estim Creat Clear Calc 90.7 Estimated GFR > 60 Fasting Glucose 102 H Calcium 9.2 Total Bilirubin 0.2 AST 19 ALT 17 Alkaline Phosphatase 116 Total Protein 6.3 L Albumin 3.4 L Microbiology Microbiology Results: Microbiology 09/02/21 16:14 Blood Culture - Final Blood - Venous No growth after 5 days. 09/02/21 16:14 Blood Culture - Final Blood - Venous No growth after 5 days. 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 This may be palliative Await path report of other lesions Discussed with daughter Hyacinth Will continue to follow Fall Risk Details Current Medications: Current Medications Acetaminophen (Acetaminophen 325 Mg Tablet) 650 mg PO Q6H PRN PRN Reason: Pain, Mild (Pain Scale 1-3) Docusate Sodium (Docusate Sodium 100 Mg Capsule) 100 mg PO BID [facility] Last Admin: 09/08/21 11:58 Dose: Not Given Documented by: Ceftriaxone Sodium 1 gm/ (Sodium Chloride) 50 mls @ 100 mls/hr IV Q24H [facility] Last Infusion: 09/07/21 23:37 Dose: Infused Documented by: Ondansetron HCl (Ondansetron Hcl 4 Mg/2 Ml Vial) 4 mg IVPUSH Q8H PRN PRN Reason: Nausea and Vomiting Sodium Biphosphate/Sodium Phosphate (Sodium Phosphate,[place]-Dibasic 133 Ml Enema) 133 ml [place] ONCE PRN PRN Reason: Consult order Last Admin: 09/04/21 11:20 Dose: 133 ml Documented by: Sodium Biphosphate/Sodium Phosphate (Sodium Phosphate,[place]-Dibasic 133 Ml Enema) 133 ml MO ONCE PRN PRN Reason: Consult order Last Admin: 09/04/21 12:34 Dose: 133 ml Documented by: Sodium Chloride (0.9 % Sodium Chloride Flush 3 Ml Syringe) [facility] Last Admin: 09/08/21 09:24 Dose: 3 ml Documented by: Time Spent With Patient Time: Total time spent is greater than 50% in coordination of care (as documented) at patient's floor/unit and/or counseling patient: Time with patient: 15 - 24 minutes Quality Stroke Does the patient have a stroke diagnosis?: No VTE Prior VTE?: No VTE Risk Level:: Medical - moderate - high VTE Device Contraindication: Treatment Not Indicated VTE Drug Contraindication: N/A - Med Ordered
[2021-09-08] MEDS: Docusate Sodium 100 MG CAPSULE PO (20:20)
[2021-09-08] MEDS: cefTRIAXone sodium 1 GM in 0.9 % Sodium Chloride 50 ML IV (23:10)
[2021-09-09 04:00] VITALS: BP 147/70; PULSE 73; RESP 18; TEMP 36.6; O2SAT 98
[2021-09-09 06:25] LABS: MANUAL DIFF FLAG NO
[2021-09-09 06:47] LABS: Basophils Percent Auto 0.3 % (0-2); Eosinophils Absolute Auto 0.2 X10*3/uL (0.0-0.4); Eosinophils Percent Auto 3.5 % (0-4); Hematocrit 34.2 % (42.0-52.0); Hemoglobin 10.5 g/dl (14.0-18.0); Imm Gran Abs Auto 0.01 X10*3/uL (0.00-0.03); Imm Gran Pct Auto 0.2 % (0.0-0.4); Lymphocytes Absolute Auto 1.2 X10*3/uL (1.2-4.9); Lymphocytes Percent Auto 19.5 % (20-40); Mean Corpuscular HGB Conc 30.7 g/dl (31.0-36.0); Mean Corpuscular Hemoglobin 25.9 pg (27.0-33.0); Mean Corpuscular Volume 84.2 fL (80.0-98.0); Mean Platelet Volume 9.9 fL (9.4-12.4); Monocytes Absolute Auto 0.7 X10*3/uL (0.1-1.2); Monocytes Percent Auto 11.2 % (2-11); Neutrophils Absolute Auto 4.1 x10*3/uL (2.0-8.3); Neutrophils Percent Auto 65.3 % (45-73); Platelet Count 367 X10*3/uL (160-400); Red Blood Count 4.06 X10*6/uL (4.60-5.80); Red Cell Distribution Width 15.4 % (11.0-16.0); White Blood Count 6.3 X10*3/uL (4.8-10.8)
[2021-09-09 06:51] LABS: Alanine Aminotransferase 18 U/L (0-40); Albumin Level 3.4 g/dL (3.5-5.0); Alkaline Phosphatase 121 U/L (39-117); Anion Gap 14 (12-20); Aspartate Amino Transferase 18 U/L (5-37); Bilirubin Total 0.2 mg/dL (0.0-1.0); Blood Urea Nitrogen 13 mg/dL (9-16); Calcium 8.9 mg/dL (8.4-10.2); Carbon Dioxide 26 mmol/L (22-29); Chloride 100 mmol/L (96-108); Creatinine Clr Calc Pharmacy 96.9; Estimated Glomerular Filt Rate > 60; Glucose Fasting 86 mg/dL (60-99); Potassium 4.9 mmol/L (3.3-5.1); Sodium 135 mmol/L (135-145); Total Protein 6.3 g/dL (6.5-8.0)
[2021-09-09 07:58] VITALS: BP 140/73; PULSE 76; RESP 17; TEMP 36.3; O2SAT 98
[2021-09-09] MEDS: Docusate Sodium 100 MG CAPSULE PO ×2 (08:15→20:58)
[2021-09-09] MEDS: 0.9 % Sodium Chloride Flush 3 ML SYRINGE IVFLUSH ×3 (08:15→22:56)
--- NOTE | 2021-09-09 10:46 | PM.PNGS ---
Subjective Subjective Date of Service: 09/10/21 Interval history: denies abdominal pain BMs ok feels well tolerating PO well Physical Exam Vital Signs: Vital Signs: Last Vital Signs Temp 97.3 F 09/09/21 07:58 Pulse 76 09/09/21 07:58 Resp 17 09/09/21 07:58 BP 140/73 H 09/09/21 07:58 Pulse Ox 98 09/09/21 07:58 BMI result Body Mass Index 21.2 Const: General: comfortable and no acute distress Resp: Effort & Inspection: normal respiratory effort Cardio: Rate: regular rate GI: Palpation (GI): Soft to palpation, not firm, nontender and no guarding Objective Data Active Medications Acetaminophen (Acetaminophen 325 Mg Tablet) 650 mg PO Q6H PRN PRN Reason: Pain, Mild (Pain Scale 1-3) Docusate Sodium (Docusate Sodium 100 Mg Capsule) 100 mg PO BID [facility] Last Admin: 09/09/21 08:15 Dose: 100 mg Documented by: STEPHANIE Ceftriaxone Sodium 1 gm/ (Sodium Chloride) 50 mls @ 100 mls/hr IV Q24H [facility] Last Infusion: 09/08/21 23:42 Dose: 0 mls/hr Documented by: STEPHANIE Ondansetron HCl (Ondansetron Hcl 4 Mg/2 Ml Vial) 4 mg IVPUSH Q8H PRN PRN Reason: Nausea and Vomiting Sodium Biphosphate/Sodium Phosphate (Sodium Phosphate,[place]-Dibasic 133 Ml Enema) 133 ml [place] ONCE PRN PRN Reason: Consult order Last Admin: 09/04/21 11:20 Dose: 133 ml Documented by: JASON Sodium Biphosphate/Sodium Phosphate (Sodium Phosphate,[place]-Dibasic 133 Ml Enema) 133 ml [place] ONCE PRN PRN Reason: Consult order Last Admin: 09/04/21 12:34 Dose: 133 ml Documented by: JASON Sodium Chloride (0.9 % Sodium Chloride Flush 3 Ml Syringe) 3 ml IVFLUSH QSHIFT [facility] Last Admin: 09/09/21 08:15 Dose: 3 ml Documented by: STEPHANIE Labs CBC & Chem 7: 09/10/21 05:21 09/10/21 05:21 Labs: Laboratory Results - last 24 hr 09/09/21 09/09/21 05:55 05:55 MCV 84.2 MCH 25.9 L MCHC 30.7 L RDW 15.4 Plt Count 367 MPV 9.9 Immature Gran % (Auto) 0.2 Neut % (Auto) 65.3 Lymph % (Auto) 19.5 L [place] % (Auto) 11.2 H Eos % (Auto) 3.5 Baso % (Auto) 0.3 Lymph # (Auto) 1.2 [place] # (Auto) 0.7 Eos # (Auto) 0.2 Baso # (Auto) 0.0 Abs Immat Gran (auto) 0.01 Absolute Neuts (auto) 4.1 Absolute Nucleated RBC 0.000 Nucleated RBC % (auto) 0.0 Anion Gap 14 Estim Creat Clear Calc 96.9 Estimated GFR > 60 Fasting Glucose 86 Calcium 8.9 Total Bilirubin 0.2 AST 18 ALT 18 Alkaline Phosphatase 121 H Total Protein 6.3 L Albumin 3.4 L Procedures Date of Service Date of Service: 09/10/21 Progress Note: A&P Assessment and plan (1) [place]-vesical fistula: Status: Acute Assessment and Plan: path report from flex sig shows adenoca renal biopsy yesterday still pending will need sigmoid resection, en bloc removal of adjacent bladder wall await path report for kidney will plan eventual resection - will coordinate with Dr Clark discussed with daughter at bedside Fall Risk Details Current Medications: Current Medications Acetaminophen (Acetaminophen 325 Mg Tablet) 650 mg PO Q6H PRN PRN Reason: Pain, Mild (Pain Scale 1-3) Docusate Sodium (Docusate Sodium 100 Mg Capsule) 100 mg PO BID [facility] Last Admin: 09/09/21 08:15 Dose: 100 mg Documented by: Ceftriaxone Sodium 1 gm/ (Sodium Chloride) 50 mls @ 100 mls/hr IV Q24H [facility] Last Infusion: 09/08/21 23:42 Dose: Infused Documented by: Ondansetron HCl (Ondansetron Hcl 4 Mg/2 Ml Vial) 4 mg IVPUSH Q8H PRN PRN Reason: Nausea and Vomiting Sodium Biphosphate/Sodium Phosphate (Sodium Phosphate,[place]-Dibasic 133 Ml Enema) 133 ml [place] ONCE PRN PRN Reason: Consult order Last Admin: 09/04/21 11:20 Dose: 133 ml Documented by: Sodium Biphosphate/Sodium Phosphate (Sodium Phosphate,[place]-Dibasic 133 Ml Enema) 133 ml [place] ONCE PRN PRN Reason: Consult order Last Admin: 09/04/21 12:34 Dose: 133 ml Documented by: Sodium Chloride (0.9 % Sodium Chloride Flush 3 Ml Syringe) 3 ml IVFLUSH QSHIFT [facility] Last Admin: 09/09/21 08:15 Dose: 3 ml Documented by: Time Spent With Patient Time: Total time spent is greater than 50% in coordination of care (as documented) at patient's floor/unit and/or counseling patient: Time with patient: 15 - 24 minutes Quality Stroke Does the patient have a stroke diagnosis?: No VTE Prior VTE?: No VTE Risk Level:: Medical - moderate - high VTE Device Contraindication: Treatment Not Indicated VTE Drug Contraindication: N/A - Med Ordered
--- NOTE | 2021-09-09 11:38 | P.PNIM_ITS ---
Subjective Subjective Date of Service: 09/09/21 Interval History: No acute issues overnight Review of Systems Denies CP Denies SOB Denies N/V/D Physical Exam Vital Signs: Vital Signs: Last Vital Signs Temp 97.3 F 09/09/21 07:58 Pulse 76 09/09/21 07:58 Resp 17 09/09/21 07:58 BP 140/73 H 09/09/21 07:58 Pulse Ox 98 09/09/21 07:58 BMI result Body Mass Index 21.2 Const: Other: No acute distress Resp: Other: Clear A/P Cardio: Other: -S4 +S1/S -S3 MRG GI: Other: soft NT/ND NABS x 4 quads Extrem: Other: no edema Objective Data Active Medications Acetaminophen (Acetaminophen 325 Mg Tablet) 650 mg PO Q6H PRN PRN Reason: Pain, Mild (Pain Scale 1-3) Docusate Sodium (Docusate Sodium 100 Mg Capsule) 100 mg PO BID [facility] Last Admin: 09/09/21 08:15 Dose: 100 mg Documented by: STEPHANIE Ceftriaxone Sodium 1 gm/ (Sodium Chloride) 50 mls @ 100 mls/hr IV Q24H [facility] Last Infusion: 09/08/21 23:42 Dose: 0 mls/hr Documented by: STEPHANIE Ondansetron HCl (Ondansetron Hcl 4 Mg/2 Ml Vial) 4 mg IVPUSH Q8H PRN PRN Reason: Nausea and Vomiting Sodium Biphosphate/Sodium Phosphate (Sodium Phosphate,[place]-Dibasic 133 Ml Enema) 133 ml [place] ONCE PRN PRN Reason: Consult order Last Admin: 09/04/21 11:20 Dose: 133 ml Documented by: JASON Sodium Biphosphate/Sodium Phosphate (Sodium Phosphate,[place]-Dibasic 133 Ml Enema) 133 ml [place] ONCE PRN PRN Reason: Consult order Last Admin: 09/04/21 12:34 Dose: 133 ml Documented by: JASON Sodium Chloride (0.9 % Sodium Chloride Flush 3 Ml Syringe) 3 ml IVFLUSH QSHIFT [facility] Last Admin: 09/09/21 08:15 Dose: 3 ml Documented by: STEPHANIE Labs CBC & Chem 7: 09/09/21 05:55 09/09/21 05:55 Labs: Laboratory Results - last 24 hr 09/09/21 09/09/21 05:55 05:55 MCV 84.2 MCH 25.9 L MCHC 30.7 L RDW 15.4 Plt Count 367 MPV 9.9 Immature Gran % (Auto) 0.2 Neut % (Auto) 65.3 Lymph % (Auto) 19.5 L [place] % (Auto) 11.2 H Eos % (Auto) 3.5 Baso % (Auto) 0.3 Lymph # (Auto) 1.2 [place] # (Auto) 0.7 Eos # (Auto) 0.2 Baso # (Auto) 0.0 Abs Immat Gran (auto) 0.01 Absolute Neuts (auto) 4.1 Absolute Nucleated RBC 0.000 Nucleated RBC % (auto) 0.0 Anion Gap 14 Estim Creat Clear Calc 96.9 Estimated GFR > 60 Fasting Glucose 86 Calcium 8.9 Total Bilirubin 0.2 AST 18 ALT 18 Alkaline Phosphatase 121 H Total Protein 6.3 L Albumin 3.4 L Assessment and Plan (1) Colonic mass: Status: Acute (2) Kidney mass: Status: Acute Plan 71yo M with no chronic conditions, no hx of prior colonoscopy, presenting with hematuria/pneumaturia, 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 2 primary tumors- colon + k idney, HD stable...asymptomatic - Heme/Onc consult pending - Sigmoidoscopy demonstrated sigmoid mass PAth is adenocarcinoma. Dr Downing to resect early next week - renal path pending - SCDs for VTE ppx Quality Stroke Does the patient have a stroke diagnosis?: No VTE Prior VTE?: No VTE Risk Level:: Medical - moderate - high VTE Device Contraindication: Treatment Not Indicated VTE Drug Contraindication: N/A - Med Ordered
[2021-09-09 12:00] VITALS: RESP 18
--- NOTE | 2021-09-09 13:28 | MHC.CM.PN ---
nurse casework manager note electronic medical record reviewed nico with case discussed on multiple disciplinary rounds , per documentation in electronic chart ;( path report shows adenocarcinoma from flex sigmoid. pending renal biopsy from 09/08/21. plan is for sigmooid colon resection and bloc removal of adjacent bladder wall, this will need to be coordinated with gen garnica and urology dr quach, casework manager to ocntinue to follow for discharge nneeds , when discuasing possible needs at the time of discharge patient does not want to discuss this , he want to johanna and see what happens after the surgery and does not want to make any decision regarding vna agencies or str facilities at this time , met with patient and his daughter yesterday and was told that the patients family has started a application to the [facility] , he has another helping him to complete application , patients son went down to see the [facility] financial counselors 2 patient has medicare a also along with his ins unt[facility] health care resources .information for [employer] given to him . patients also completed paperwork for hois daughter to be power of patent prosecution attorney with [facility] tracy . uploaded vopy in allscriprts and placed in chart nrw hcp completed on this admission discharge plan to be further determined woitbh patient and family after surgeyr home with vna for nrusign and home pt , vs str
[2021-09-09 15:40] VITALS: BP 137/70; PULSE 78; RESP 14; TEMP 36.8; O2SAT 97
[2021-09-09 19:30] VITALS: BP 136/63; PULSE 71; RESP 16; TEMP 37.1; O2SAT 99
[2021-09-09] MEDS: cefTRIAXone sodium 1 GM in 0.9 % Sodium Chloride 50 ML IV (22:55)
[2021-09-10] VITALS (7 sets, daily range): BP systolic 137–171; BP diastolic 65–84; PULSE 67–78; RESP 15–18; TEMP 36.4–36.8; O2SAT 97–100
[2021-09-10 05:48] LABS: MANUAL DIFF FLAG NO
[2021-09-10 05:58] LABS: Basophils Percent Auto 0.3 % (0-2); Eosinophils Absolute Auto 0.2 X10*3/uL (0.0-0.4); Eosinophils Percent Auto 3.8 % (0-4); Hematocrit 32.7 % (42.0-52.0); Imm Gran Abs Auto 0.02 X10*3/uL (0.00-0.03); Imm Gran Pct Auto 0.3 % (0.0-0.4); Lymphocytes Absolute Auto 1.4 X10*3/uL (1.2-4.9); Lymphocytes Percent Auto 23.4 % (20-40); Mean Corpuscular HGB Conc 30.6 g/dl (31.0-36.0); Mean Corpuscular Hemoglobin 25.7 pg (27.0-33.0); Mean Corpuscular Volume 84.1 fL (80.0-98.0); Monocytes Absolute Auto 0.7 X10*3/uL (0.1-1.2); Monocytes Percent Auto 12.2 % (2-11); Neutrophils Absolute Auto 3.6 x10*3/uL (2.0-8.3); Platelet Count 383 X10*3/uL (160-400); Red Blood Count 3.89 X10*6/uL (4.60-5.80); Red Cell Distribution Width 15.5 % (11.0-16.0); White Blood Count 6.1 X10*3/uL (4.8-10.8)
[2021-09-10 06:20] LABS: Alanine Aminotransferase 19 U/L (0-40); Albumin Level 3.3 g/dL (3.5-5.0); Alkaline Phosphatase 112 U/L (39-117); Anion Gap 9 (12-20); Aspartate Amino Transferase 19 U/L (5-37); Bilirubin Total < 0.2 mg/dL (0.0-1.0); Blood Urea Nitrogen 14 mg/dL (9-16); Calcium 9.1 mg/dL (8.4-10.2); Carbon Dioxide 29 mmol/L (22-29); Chloride 102 mmol/L (96-108); Creatinine Clr Calc Pharmacy 94.3; Estimated Glomerular Filt Rate > 60; Glucose Fasting 92 mg/dL (60-99); Potassium 4.9 mmol/L (3.3-5.1); Sodium 135 mmol/L (135-145)
[2021-09-10] MEDS: Docusate Sodium 100 MG CAPSULE PO (07:41)
[2021-09-10] MEDS: 0.9 % Sodium Chloride Flush 3 ML SYRINGE IVFLUSH ×3 (07:42→22:41)
--- NOTE | 2021-09-10 09:34 | MHC.CLN ---
F/U CLEAR LIQUID DIET TODAY AND NPO 09/11 FOR PROCEDURE. CONTINUE TO FOLLOW FOR DIET ADVANCEMENT.
--- NOTE | 2021-09-10 11:02 | P.CNHO_ITS ---
Subjective - Subjective Chief complaint: Rectal bleeding Patient: new to practice Consult date: 09/10/21 Primary Care Provider: Unknown Physician HPI - Consult Narrative Reason for consult: Colon and kidney cancer Narrative: Alfredo Diallo is a 71 year old male presented to [facility] on 09/02/2021 with complaints of hematuria as well as hematochezia. He underwent imaging studies which showed thickened sigmoid colon with apparent bladder wall invasion. R ight kidney had a 5.6 cm mass consistent with renal cell carcinoma and in the lung bases there were spiculated masses concerning for metastasis. He has had biopsies of both the sigmoid mass and kidney mass with confirmation of malignant histology. Patient has not had a PCP in many years and has never had a screening colonoscopy. He denied symptoms of weight loss or change in bowel habits prior to his presentation. At this time he says he has some hematuria and occasional hematochezia. He is feeling better overall. He is scheduled to undergo surgery tomorrow. He denies any acute complaints such as chest pain, shortness of breath or abdominal pain. His is also admitted in the hospital and she was next to him in the room. His son was also present during the interview. Review of Systems - Constitutional Reports as per HPI, Reports fatigue, Reports lack of energy, Denies night sweats, Denies poor appetite, Reports weakness - Cardiovascular Reports no additional cardiovascular complaints - Respiratory Reports no additional respiratory complaints - Gastrointestinal Reports no additional gastrointestinal complaints - Neurologic Reports no additional neurologic complaints, Reports as per HPI, Denies focal weakness, Denies convulsions Oncology Screenings - ECOG Performance Status ECOG Performance Status: 2 [facility] Medical History: Medical History (Last Reviewed 09/04/21 @ 14:47 by Jayesh Bolden MD) No family history of cancer Family History: Family History (Last Reviewed 09/04/21 @ 14:47 by Jayesh Bolden MD) Mother Parkinsons disease Father ESRD (end stage renal disease) Other No family history of cancer Surgical History: Surgical History (Last Reviewed 09/04/21 @ 14:47 by Jayesh Bolden MD) History of surgery Social History: Social History (Last Reviewed 09/04/21 @ 14:47 by Jayesh Bolden MD) Living Situation History: Household Members: Spouse Housing: House Do you presently have visiting nurse or other home services: No Tobacco History: Patient Tobacco Use Status: Former Tobacco user e-Cigarette/Vaping Use: Former Use Occupation Assessmet: service: No Current occupational status: employed Home Medications and Allergies Current Medications: Current Medications Acetaminophen (Acetaminophen 325 Mg Tablet) 650 mg PO Q6H PRN PRN Reason: Pain, Mild (Pain Scale 1-3) Docusate Sodium (Docusate Sodium 100 Mg Capsule) 100 mg PO BID [facility] Last Admin: 09/10/21 07:41 Dose: 100 mg Documented by: Cefotetan Disodium 2 gm/ (Sodium Chloride) 50 mls @ 100 mls/hr IV PREOP ONE Stop: 09/11/21 09:17 Ondansetron HCl (Ondansetron Hcl 4 Mg/2 Ml Vial) 4 mg IVPUSH Q8H PRN PRN Reason: Nausea and Vomiting Sodium Biphosphate/Sodium Phosphate (Sodium Phosphate,[place]-Dibasic 133 Ml Enema) 133 ml [place] ONCE PRN PRN Reason: Consult order Last Admin: 09/04/21 11:20 Dose: 133 ml Documented by: Sodium Biphosphate/Sodium Phosphate (Sodium Phosphate,[place]-Dibasic 133 Ml Enema) 133 ml [place] ONCE PRN PRN Reason: Consult order Last Admin: 09/04/21 12:34 Dose: 133 ml Documented by: Sodium Chloride (0.9 % Sodium Chloride Flush 3 Ml Syringe) 3 ml IVFLUSH QSHIFT [facility] Last Admin: 09/10/21 07:42 Dose: 3 ml Documented by: Allergies Allergy/AdvReac Type Severity Reaction Status Date / Time No Known Allergies Allergy Verified 09/04/21 12:25 Physical Exam Vital signs: Vital Signs Temp 97.6 F 09/10/21 07:50 Pulse 69 09/10/21 07:50 Resp 17 09/10/21 07:50 BP 143/74 H 09/10/21 07:50 Pulse Ox 99 09/10/21 07:50 Intake & Output 09/09/21 09/10/21 09/10/21 18:59 06:59 18:59 Intake Total 520 / 570 50 / 570 Output Total 3 / 3 Balance 517 / 567 50 / 567 Urine Output (Average ml/kg/hr) 0.00 0.00 Intake: Intake, Oral Amount 520 / 520 Intake, IV Amount 50 / 50 cefTRIAXone sodium 1 gm In 0.9 50 / 50 % Sodium Chloride 50 ml @ 100 mls/hr IV Q24H [facility] Rx#: [id number] Output: Output, Urine Amount 3 / 3 Other: Meal Refused No NPO No Breakfast % Eaten 100% Lunch % Eaten 100% Number of Unmeasured Voids 1 Urine Bathroom Bathroom Urine Color Yellow Weight 74.843 kg - Constitutional Present: no acute distress, thin - Routine HEENT Exam Head: Present: normal inspection Eye: Present: normal appearance ENT: Present: normal oropharynx - Routine Neck Exam Present: supple. Absent: lymphadenopathy - Routine Respiratory Exam Absent: accessory muscle use - Routine Cardiovascular Exam Cardiovascular: Present: RRR, S1, S2 - Routine Abdominal Exam Present: normal bowel sounds, soft - Routine Extremities Exam Present: normal inspection - Routine Skin Exam Present: intact. Absent: cyanosis - Routine Neurological Exam Present: alert, oriented X3 - Routine Psychiatric Exam Present: normal affect Hem/Onc Consult Result - Labs CBC & Chem 7: 09/10/21 05:21 09/10/21 05:21 Labs: Short CBC 09/10/21 Range/Units 05:21 WBC 6.1 (4.8-10.8) X10*3/uL Hgb 10.0 L (14.0-18.0) g/dl Hct 32.7 L (42.0-52.0) % Plt Count 383 (160-400) X10*3/uL BMP 09/10/21 05:21 Sodium 135 Potassium 4.9 Chloride 102 Carbon Dioxide 29 BUN 14 Creatinine 0.76 Calcium 9.1 Liver Function 09/10/21 Range/Units 05:21 Total Bilirubin < 0.2 (0.0-1.0) mg/dL AST 19 (5-37) U/L ALT 19 (0-40) U/L Alkaline Phosphatase 112 (39-117) U/L Albumin 3.3 L (3.5-5.0) g/dL Assessment and Plan Patient Active problem list reviewed?: Yes (1) Colon adenocarcinoma Status: Acute Assessment and plan: 1. This is a 71-year-old male with colon adenocarcinoma. CT abdomen/pelvis revealed abnormal area in the rectosigmoid with thickening and enhancement, invasion of posterior bladder wall. Colonoscopy performed on 09/04/2021 revealed an exophytic mass 22 cm from anal verge and causing complete obstruction. CEA level 4.10 NG/mL. Patient is scheduled to undergo resection of colonic /sigmoid mass along with enbloc resection of involved bladder. There is no abdominal lymphadenopathy or liver metastasis. Clinical stage T4 Nx. Further recommendations about adjuvant treatment to be made after surgical staging. 2. Right renal carcinoma. 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 CT chest also revealed probable pulmonary metastasis with multiple bilateral lung nodules. CT-guided FNA is awaited. Depending on pathology, recommendations about surgery for renal cell carcinoma to be determined. If patient has metastatic renal cell carcinoma resection of primary tumor in the kidney is not necessary. All of this was explained to patient as well as his son and who were at the bedside. I will follow the patient with you. I thank you very much for this consultation. - Time Spent With Patient Time Spent with Patient (in minutes): 25
--- NOTE | 2021-09-10 12:58 | HO.PM.IMPN ---
Subjective Subjective Date of Service: 09/10/21 Interval History: Denies abd pain, nausea, or vomiting. Ongoing hematuria, fecaluria, and pneumaturia. Review of Systems Review of Systems: Yes all other systems are reviewed and are negative Physical Exam Vital Signs: Vital Signs: Last Vital Signs Temp 98.3 F 09/10/21 11:26 Pulse 78 09/10/21 11:26 Resp 18 09/10/21 11:26 BP 137/65 09/10/21 11:26 Pulse Ox 97 09/10/21 11:26 BMI result Body Mass Index 21.2 Gen: in no acute distress HEENT: sclera anicteric, moist mucus membranes Neck: supple Lungs: clear to auscultation bilaterally Heart: regular rate and rhythm, no murmurs Abd: soft, non-tender, non-distended Ext: no edema Skin: warm/well-perfused Neuro: alert and oriented x3, no focal findings Psych: appropriate affect Objective Data Active Medications Acetaminophen (Acetaminophen 325 Mg Tablet) 650 mg PO Q6H PRN PRN Reason: Pain, Mild (Pain Scale 1-3) Docusate Sodium (Docusate Sodium 100 Mg Capsule) 100 mg PO BID [facility] Last Admin: 09/10/21 07:41 Dose: 100 mg Documented by: ROM Cefotetan Disodium 2 gm/ (Sodium Chloride) 50 mls @ 100 mls/hr IV PREOP ONE Stop: 09/11/21 09:17 Ondansetron HCl (Ondansetron Hcl 4 Mg/2 Ml Vial) 4 mg IVPUSH Q8H PRN PRN Reason: Nausea and Vomiting Polyethylene Glycol/Electrolytes (Peg 3350/Na Sulf,Bicarb,Cl/Kcl 4,000 Ml Soln.Recon) 4,000 ml PO ONCE ONE Stop: 09/10/21 17:31 Sodium Biphosphate/Sodium Phosphate (Sodium Phosphate,[place]-Dibasic 133 Ml Enema) 133 ml [place] ONCE PRN PRN Reason: Consult order Last Admin: 09/04/21 11:20 Dose: 133 ml Documented by: JASON Sodium Biphosphate/Sodium Phosphate (Sodium Phosphate,[place]-Dibasic 133 Ml Enema) 133 ml [place] ONCE PRN PRN Reason: Consult order Last Admin: 09/04/21 12:34 Dose: 133 ml Documented by: HO.KODOSOB Sodium Chloride (0.9 % Sodium Chloride Flush 3 Ml Syringe) 3 ml IVFLUSH QSHIFT [facility] Last Admin: 09/10/21 07:42 Dose: 3 ml Documented by: ROM Labs CBC & Chem 7: 09/10/21 05:21 09/10/21 05:21 Labs: Laboratory Results - last 24 hr 09/10/21 09/10/21 05:21 05:21 MCV 84.1 MCH 25.7 L MCHC 30.6 L RDW 15.5 Plt Count 383 MPV 10.0 Immature Gran % (Auto) 0.3 Neut % (Auto) 60.0 Lymph % (Auto) 23.4 [place] % (Auto) 12.2 H Eos % (Auto) 3.8 Baso % (Auto) 0.3 Lymph # (Auto) 1.4 [place] # (Auto) 0.7 Eos # (Auto) 0.2 Baso # (Auto) 0.0 Abs Immat Gran (auto) 0.02 Absolute Neuts (auto) 3.6 Absolute Nucleated RBC 0.000 Nucleated RBC % (auto) 0.0 Anion Gap 9 L Estim Creat Clear Calc 94.3 Estimated GFR > 60 Fasting Glucose 92 Calcium 9.1 Total Bilirubin < 0.2 AST 19 ALT 19 Alkaline Phosphatase 112 Total Protein 6.0 L Albumin 3.3 L Assessment and Plan (1) Colonic mass: Status: Acute (2) Kidney mass: Status: Acute Plan hospital d#9 71yo M with no chronic conditions, no hx of prior colonoscopy, presenting with hematuria/pneumaturia, found to have 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, renal mass, pulmonary masses diagnosed with adenoCA of sigmoid colon plus renal clear cell carcinoma # sigmoid adenoCA invading bladder wall - to OR tomorrow for resection with Gen Surg [Chang] + Urology [Eduardo]; clears now and NPO after midnight, T+S in am - Heme/Onc consult # renal clear cell carcinoma - needs biopsy of pulmonary masses to see if metastatic; otherwise, he could have curative resection - Heme/Onc consult # pulmonary mets - as above # VTE ppx - SCDs Quality Stroke Does the patient have a stroke diagnosis?: No VTE Prior VTE?: No VTE Risk Level:: Medical - moderate - high VTE Device Contraindication: Treatment Not Indicated VTE Drug Contraindication: N/A - Med Ordered
--- NOTE | 2021-09-10 13:18 | MHC.CM.PN ---
per rounds pt to go to or tomorrow dr sharpe to consult
--- NOTE | 2021-09-10 13:21 | P.PNGS_ITS ---
Subjective Subjective Date of Service: 09/12/21 Interval history: Denies complaints currently Feels well Tolerating diet well Physical Exam Vital Signs: Vital Signs: Last Vital Signs Temp 98.3 F 09/10/21 11:26 Pulse 78 09/10/21 11:26 Resp 18 09/10/21 11:26 BP 137/65 09/10/21 11:26 Pulse Ox 97 09/10/21 11:26 BMI result Body Mass Index 21.2 Const: General: comfortable and no acute distress Resp: Effort & Inspection: normal respiratory effort Cardio: Rate: regular rate GI: Palpation (GI): Soft to palpation, not firm, nontender and no guarding Objective Data Active Medications Acetaminophen (Acetaminophen 325 Mg Tablet) 650 mg PO Q6H PRN PRN Reason: Pain, Mild (Pain Scale 1-3) Docusate Sodium (Docusate Sodium 100 Mg Capsule) 100 mg PO BID [facility] Last Admin: 09/10/21 07:41 Dose: 100 mg Documented by: ROM Cefotetan Disodium 2 gm/ (Sodium Chloride) 50 mls @ 100 mls/hr IV PREOP ONE Stop: 09/11/21 09:17 Ondansetron HCl (Ondansetron Hcl 4 Mg/2 Ml Vial) 4 mg IVPUSH Q8H PRN PRN Reason: Nausea and Vomiting Polyethylene Glycol/Electrolytes (Peg 3350/Na Sulf,Bicarb,Cl/Kcl 4,000 Ml Soln.Recon) 4,000 ml PO ONCE ONE Stop: 09/10/21 17:31 Sodium Biphosphate/Sodium Phosphate (Sodium Phosphate,[place]-Dibasic 133 Ml Enema) 133 ml [place] ONCE PRN PRN Reason: Consult order Last Admin: 09/04/21 11:20 Dose: 133 ml Documented by: JASON Sodium Biphosphate/Sodium Phosphate (Sodium Phosphate,[place]-Dibasic 133 Ml Enema) 133 ml [place] ONCE PRN PRN Reason: Consult order Last Admin: 09/04/21 12:34 Dose: 133 ml Documented by: JASON Sodium Chloride (0.9 % Sodium Chloride Flush 3 Ml Syringe) 3 ml IVFLUSH QSHIFT [facility] Last Admin: 09/10/21 07:42 Dose: 3 ml Documented by: ROM Labs CBC & Chem 7: 09/12/21 05:41 09/12/21 05:41 Labs: Laboratory Results - last 24 hr 09/10/21 09/10/21 05:21 05:21 MCV 84.1 MCH 25.7 L MCHC 30.6 L RDW 15.5 Plt Count 383 MPV 10.0 Immature Gran % (Auto) 0.3 Neut % (Auto) 60.0 Lymph % (Auto) 23.4 [place] % (Auto) 12.2 H Eos % (Auto) 3.8 Baso % (Auto) 0.3 Lymph # (Auto) 1.4 [place] # (Auto) 0.7 Eos # (Auto) 0.2 Baso # (Auto) 0.0 Abs Immat Gran (auto) 0.02 Absolute Neuts (auto) 3.6 Absolute Nucleated RBC 0.000 Nucleated RBC % (auto) 0.0 Anion Gap 9 L Estim Creat Clear Calc 94.3 Estimated GFR > 60 Fasting Glucose 92 Calcium 9.1 Total Bilirubin < 0.2 AST 19 ALT 19 Alkaline Phosphatase 112 Total Protein 6.0 L Albumin 3.3 L Procedures Date of Service Date of Service: 09/10/21 Progress Note: A&P Assessment and plan (1) [place]-vesical fistula: Status: Acute Assessment and Plan: Colovesical fistula, malignant with of invasive adenocarcinoma Flex sig had shown tumor at level 22 cm Had right kidney biopsy as well for a tumor - this shows a renal cell carcinoma Plan on sigmoid resection, likely stoma, with enbloc resection of involved bladder tomorrow Will start with hand assisted laparoscopic surgery, possible conversion to open Possible end-colostomy Had a long discussion with the patient as well as his family about the technique of planned procedure. Reviewed the risks including but not limited to bleeding, infections, bowel injury, urinary tract injury, complications, inherent risks of anesthesia Surgery likely to be palliative as patient has metastatic disease to the lungs, probably from renal cell cancer Plan discussed with Oncology as well Dr. Clark aware of plan Fall Risk Details Current Medications: Current Medications Acetaminophen (Acetaminophen 325 Mg Tablet) 650 mg PO Q6H PRN PRN Reason: Pain, Mild (Pain Scale 1-3) Docusate Sodium (Docusate Sodium 100 Mg Capsule) 100 mg PO BID [facility] Last Admin: 09/10/21 07:41 Dose: 100 mg Documented by: Cefotetan Disodium 2 gm/ (Sodium Chloride) 50 mls @ 100 mls/hr IV PREOP ONE Stop: 09/11/21 09:17 Ondansetron HCl (Ondansetron Hcl 4 Mg/2 Ml Vial) 4 mg IVPUSH Q8H PRN PRN Reason: Nausea and Vomiting Polyethylene Glycol/Electrolytes (Peg 3350/Na Sulf,Bicarb,Cl/Kcl 4,000 Ml Soln.Recon) 4,000 ml PO ONCE ONE Stop: 09/10/21 17:31 Sodium Biphosphate/Sodium Phosphate (Sodium Phosphate,[place]-Dibasic 133 Ml Enema) 133 ml [place] ONCE PRN PRN Reason: Consult order Last Admin: 09/04/21 11:20 Dose: 133 ml Documented by: Sodium Biphosphate/Sodium Phosphate (Sodium Phosphate,[place]-Dibasic 133 Ml Enema) 133 ml [place] ONCE PRN PRN Reason: Consult order Last Admin: 09/04/21 12:34 Dose: 133 ml Documented by: Sodium Chloride (0.9 % Sodium Chloride Flush 3 Ml Syringe) 3 ml IVFLUSH QSGAFT [facility] Last Admin: 09/10/21 07:42 Dose: 3 ml Documented by: Time Spent With Patient Time: Total time spent is greater than 50% in coordination of care (as documented) at patient's floor/unit and/or counseling patient: Time with patient: 15 - 24 minutes Quality Stroke Does the patient have a stroke diagnosis?: No VTE Prior VTE?: No VTE Risk Level:: Medical - moderate - high VTE Device Contraindication: Treatment Not Indicated VTE Drug Contraindication: N/A - Med Ordered
[2021-09-10] MEDS: PEG 3350/Na Sulf,Bicarb,Cl/KCL 4,000 ML SOLN.RECON 4000 ML PO (17:19)
[2021-09-10 17:29] LABS: Lactate Dehydrogenase 157 U/L (118-273)
[2021-09-11] VITALS (15 sets, daily range): BP systolic 142–163; BP diastolic 63–78; PULSE 68–89; RESP 10–19; TEMP 36.2–36.8; O2SAT 94–100; BMI 21.2
[2021-09-11] MEDS: 0.9 % Sodium Chloride Flush 3 ML SYRINGE IVFLUSH ×2 (07:07→20:43)
[2021-09-11] MEDS: Lactated Ringers 1,000 ML 80 ML IVCONT (08:35)
--- NOTE | 2021-09-11 10:14 | HO.ANESPROP2 ---
HPI - Anesthesia Eval Consult details Narrative: 71 M for malignant colovesical fistula resection . [facility] Active Problems Active Problems: All Active Problems (Updated 09/10/21 @ 16:50 by Phoebe Cisneros MD) Colon adenocarcinoma (Acute) Renal cancer (Acute) Hematochezia (Acute) Pulmonary nodule (Acute) History of tobacco use (Acute) No pertinent past medical history (Acute) [place]-vesical fistula (Acute) Colonic mass (Acute) Kidney mass (Acute) Abdominal pain (Acute) Rectal fistula (Acute) Bloody stools (Acute) Hematuria (Acute) Past Medical History Medical History No family history of cancer Functional capacity: independent ambulation Family History Family History Mother Parkinsons disease Father ESRD (end stage renal disease) Other No family history of cancer Family history of problems with anesthesia: No Surgical History Surgical History History of surgery History of Problems with Anesthesia: No Social History Social History Household Members: Spouse Housing: House Do you presently have visiting nurse or other home services: No Alcohol intake: former Patient Tobacco Use Status: Former Tobacco user e-Cigarette/Vaping Use: Former Use service: No Current occupational status: employed Meds Allergies Allergy/AdvReac Type Severity Reaction Status Date / Time No Known Allergies Allergy Verified 09/04/21 12:25 Active Medications: Current Medications Acetaminophen (Acetaminophen 325 Mg Tablet) 650 mg PO Q6H PRN PRN Reason: Pain, Mild (Pain Scale 1-3) Docusate Sodium (Docusate Sodium 100 Mg Capsule) 100 mg PO BID [facility] Last Admin: 09/11/21 07:09 Dose: Not Given Documented by: Lactated Ringer's (Lr) 1,000 mls @ 80 mls/hr IVCONT .[id number] [facility] Last Admin: 09/11/21 08:35 Dose: 80 mls/hr Documented by: Ondansetron HCl (Ondansetron Hcl 4 Mg/2 Ml Vial) 4 mg IVPUSH Q8H PRN PRN Reason: Nausea and Vomiting Sodium Biphosphate/Sodium Phosphate (Sodium Phosphate,[place]-Dibasic 133 Ml Enema) 133 ml [place] ONCE PRN PRN Reason: Consult order Last Admin: 09/04/21 11:20 Dose: 133 ml Documented by: Sodium Biphosphate/Sodium Phosphate (Sodium Phosphate,[place]-Dibasic 133 Ml Enema) 133 ml [place] ONCE PRN PRN Reason: Consult order Last Admin: 09/04/21 12:34 Dose: 133 ml Documented by: Sodium Chloride (0.9 % Sodium Chloride Flush 3 Ml Syringe) 3 ml IVFLUSH QSHIFT [facility] Last Admin: 09/11/21 07:07 Dose: 3 ml Documented by: Exam Exam Date and Time: September 11, 2021 1014 Height,Weight and Vital Signs: Height 6 ft 2 in Weight 74.843 kg Last Vital Signs Temp 97.3 F 09/11/21 07:51 Pulse 75 09/11/21 09:48 Resp 17 09/11/21 09:48 BP 142/72 H 09/11/21 09:48 Pulse Ox 98 09/11/21 09:48 Pertinent Lab Results Pertinent Lab Results: Laboratory Tests 09/02/21 09/02/21 09/02/21 12:55 12:57 12:58 WBC 8.2 RBC 3.87 L Hgb 10.7 L Hct 32.5 L MCV 84.0 MCH 27.6 MCHC 32.9 RDW 15.6 Plt Count 360 MPV 9.8 Immature Gran % (Auto) 0.4 Neut % (Auto) 70.2 Lymph % (Auto) 19.5 L [place] % (Auto) 8.8 Eos % (Auto) 0.7 Baso % (Auto) 0.4 Lymph # (Auto) 1.6 [place] # (Auto) 0.7 Eos # (Auto) 0.1 Baso # (Auto) 0.0 Abs Immat Gran (auto) 0.03 Absolute Neuts (auto) 5.8 Absolute Nucleated RBC 0.000 Nucleated RBC % (auto) 0.0 PT INR APTT Sodium 132 L Potassium 4.9 Chloride 99 Carbon Dioxide 26 Anion Gap 12 BUN 14 Creatinine 1.12 Estim Creat Clear Calc 64.0 Estimated GFR > 60 Random Glucose 91 Fasting Glucose Lactic Acid Calcium 9.5 Iron TIBC % Saturation Unsat Iron Binding Ferritin Total Bilirubin AST ALT Alkaline Phosphatase Lactate Dehydrogenase Total Protein Albumin Carcinoembryonic Ag Prostate Specific Ag Vitamin B12 Folate Urine Color YELLOW Urine Appearance CLOUDY Urine pH 6.0 Ur Specific [place] >= 1.030 H Urine Protein 1+ H Urine Glucose (UA) NEG Urine Ketones NEG Urine Blood 3+ H Urine Nitrite NEG Ur Leukocyte Esterase 2+ H Urine RBC TNTC H Urine WBC TNTC H Ur Squamous Epith Cells 1+ Urine Bacteria 1+ Urine Mucus 1+ COVID-19 (JAS) COVID-19 Clin Com Blood Type Antibody Screen 09/02/21 09/02/21 09/03/21 16:14 16:14 06:55 WBC 6.5 RBC 3.86 L Hgb 10.1 L Hct 32.5 L MCV 84.2 MCH 26.2 L MCHC 31.1 RDW 15.6 Plt Count 333 MPV 10.5 Immature Gran % (Auto) 0.3 Neut % (Auto) 68.9 Lymph % (Auto) 17.6 L [place] % (Auto) 9.9 Eos % (Auto) 2.8 Baso % (Auto) 0.5 Lymph # (Auto) 1.1 L [place] # (Auto) 0.6 Eos # (Auto) 0.2 Baso # (Auto) 0.0 Abs Immat Gran (auto) 0.02 Absolute Neuts (auto) 4.5 Absolute Nucleated RBC 0.000 Nucleated RBC % (auto) 0.0 PT INR APTT Sodium Potassium Chloride Carbon Dioxide Anion Gap BUN Creatinine Estim Creat Clear Calc Estimated GFR Random Glucose Fasting Glucose Lactic Acid 0.8 Calcium Iron TIBC % Saturation Unsat Iron Binding Ferritin Total Bilirubin AST ALT Alkaline Phosphatase Lactate Dehydrogenase Total Protein Albumin Carcinoembryonic Ag Prostate Specific Ag Vitamin B12 Folate Urine Color Urine Appearance Urine pH Ur Specific [place] Urine Protein Urine Glucose (UA) Urine Ketones Urine Blood Urine Nitrite Ur Leukocyte Esterase Urine RBC Urine WBC Ur Squamous Epith Cells Urine Bacteria Urine Mucus COVID-19 (JAS) Negative COVID-19 Clin Com See Note Blood Type Antibody Screen 09/03/21 09/03/21 09/03/21 06:55 08:52 17:19 WBC RBC Hgb Hct MCV MCH MCHC RDW Plt Count MPV Immature Gran % (Auto) Neut % (Auto) Lymph % (Auto) [place] % (Auto) Eos % (Auto) Baso % (Auto) Lymph # (Auto) [place] # (Auto) Eos # (Auto) Baso # (Auto) Abs Immat Gran (auto) Absolute Neuts (auto) Absolute Nucleated RBC Nucleated RBC % (auto) PT 11.9 INR 1.0 APTT 43.3 H Sodium 132 L Potassium 4.8 Chloride 100 Carbon Dioxide 25 Anion Gap 12 BUN 10 Creatinine 0.87 Estim Creat Clear Calc 82.4 Estimated GFR > 60 Random Glucose 72 Fasting Glucose Lactic Acid Calcium 8.9 D Iron 27 L TIBC 297 % Saturation 9 L Unsat Iron Binding 270 Ferritin Total Bilirubin AST ALT Alkaline Phosphatase Lactate Dehydrogenase Total Protein Albumin Carcinoembryonic Ag 3.90 Prostate Specific Ag 1.15 Vitamin B12 Folate Urine Color Urine Appearance Urine pH Ur Specific [place] Urine Protein Urine Glucose (UA) Urine Ketones Urine Blood Urine Nitrite Ur Leukocyte Esterase Urine RBC Urine WBC Ur Squamous Epith Cells Urine Bacteria Urine Mucus COVID-19 (JAS) COVIDConnolly Blood Type Antibody Screen 09/03/21 09/03/21 09/03/21 17:19 17:19 17:19 WBC RBC Hgb Hct MCV MCH MCHC RDW Plt Count MPV Immature Gran % (Auto) Neut % (Auto) Lymph % (Auto) [place] % (Auto) Eos % (Auto) Baso % (Auto) Lymph # (Auto) [place] # (Auto) Eos # (Auto) Baso # (Auto) Abs Immat Gran (auto) Absolute Neuts (auto) Absolute Nucleated RBC Nucleated RBC % (auto) PT INR APTT Sodium Potassium Chloride Carbon Dioxide Anion Gap BUN Creatinine Estim Creat Clear Calc Estimated GFR Random Glucose Fasting Glucose Lactic Acid Calcium Iron TIBC % Saturation Unsat Iron Binding Ferritin 11 L Total Bilirubin AST ALT Alkaline Phosphatase Lactate Dehydrogenase Total Protein Albumin Carcinoembryonic Ag Prostate Specific Ag 1.15 Vitamin B12 337 Folate 11.9 Urine Color Urine Appearance Urine pH Ur Specific [place] Urine Protein Urine Glucose (UA) Urine Ketones Urine Blood Urine Nitrite Ur Leukocyte Esterase Urine RBC Urine WBC Ur Squamous Epith Cells Urine Bacteria Urine Mucus COVID-19 (JAS) COVID-19 [facility] [employer] Com Blood Type Antibody Screen 09/05/21 09/05/21 09/06/21 05:40 05:40 05:37 WBC 5.8 5.9 RBC 4.12 L 4.19 L Hgb 10.6 L 10.9 L Hct 34.9 L 35.2 L MCV 84.7 84.0 MCH 25.7 L 26.0 L MCHC 30.4 L 31.0 RDW 15.4 15.6 Plt Count 361 386 MPV 10.0 9.9 Immature Gran % (Auto) 0.3 0.3 Neut % (Auto) 64.6 63.5 Lymph % (Auto) 20.5 23.4 [place] % (Auto) 11.0 9.4 Eos % (Auto) 3.3 3.1 Baso % (Auto) 0.3 0.3 Lymph # (Auto) 1.2 1.4 [place] # (Auto) 0.6 0.6 Eos # (Auto) 0.2 0.2 Baso # (Auto) 0.0 0.0 Abs Immat Gran (auto) 0.02 0.02 Absolute Neuts (auto) 3.8 3.7 Absolute Nucleated RBC 0.000 0.000 Nucleated RBC % (auto) 0.0 0.0 PT INR APTT Sodium 136 Potassium 5.1 Chloride 101 Carbon Dioxide 29 Anion Gap 11 L BUN 12 Creatinine 0.81 Estim Creat Clear Calc 88.5 Estimated GFR > 60 Random Glucose Fasting Glucose 84 Lactic Acid Calcium 9.1 Iron TIBC % Saturation Unsat Iron Binding Ferritin Total Bilirubin 0.2 AST 19 ALT 13 Alkaline Phosphatase 133 H Lactate Dehydrogenase Total Protein 6.3 L Albumin 3.4 L Carcinoembryonic Ag Prostate Specific Ag Vitamin B12 Folate Urine Color Urine Appearance Urine pH Ur Specific [place] Urine Protein Urine Glucose (UA) Urine Ketones Urine Blood Urine Nitrite Ur Leukocyte Esterase Urine RBC Urine WBC Ur Squamous Epith Cells Urine Bacteria Urine Mucus COVID-19 (JAS) COVID-19 Clin Com Blood Type Antibody Screen 09/06/21 09/08/21 09/08/21 05:37 05:16 05:16 WBC 8.0 RBC 4.17 L Hgb 10.7 L Hct 35.2 L MCV 84.4 MCH 25.7 L MCHC 30.4 L RDW 15.4 Plt Count 398 MPV 10.1 Immature Gran % (Auto) 0.2 Neut % (Auto) 73.0 Lymph % (Auto) 15.5 L [place] % (Auto) 8.8 Eos % (Auto) 2.1 Baso % (Auto) 0.4 Lymph # (Auto) 1.3 [place] # (Auto) 0.7 Eos # (Auto) 0.2 Baso # (Auto) 0.0 Abs Immat Gran (auto) 0.02 Absolute Neuts (auto) 5.9 Absolute Nucleated RBC 0.000 Nucleated RBC % (auto) 0.0 PT 11.6 INR 1.0 APTT Sodium 135 Potassium 4.8 Chloride 100 Carbon Dioxide 27 Anion Gap 13 BUN 14 Creatinine 0.80 Estim Creat Clear Calc 89.6 Estimated GFR > 60 Random Glucose Fasting Glucose 105 H Lactic Acid Calcium 9.1 Iron TIBC % Saturation Unsat Iron Binding Ferritin Total Bilirubin 0.2 AST 20 ALT 15 Alkaline Phosphatase 128 H Lactate Dehydrogenase Total Protein 6.5 Albumin 3.5 Carcinoembryonic Ag Prostate Specific Ag Vitamin B12 Folate Urine Color Urine Appearance Urine pH Ur Specific [place] Urine Protein Urine Glucose (UA) Urine Ketones Urine Blood Urine Nitrite Ur Leukocyte Esterase Urine RBC Urine WBC Ur Squamous Epith Cells Urine Bacteria Urine Mucus COVID-19 (JAS) COVID-19 Clin Com Blood Type Antibody Screen 09/08/21 09/09/21 09/09/21 05:16 05:55 05:55 WBC 6.3 RBC 4.06 L Hgb 10.5 L Hct 34.2 L MCV 84.2 MCH 25.9 L MCHC 30.7 L RDW 15.4 Plt Count 367 MPV 9.9 Immature Gran % (Auto) 0.2 Neut % (Auto) 65.3 Lymph % (Auto) 19.5 L [place] % (Auto) 11.2 H Eos % (Auto) 3.5 Baso % (Auto) 0.3 Lymph # (Auto) 1.2 [place] # (Auto) 0.7 Eos # (Auto) 0.2 Baso # (Auto) 0.0 Abs Immat Gran (auto) 0.01 Absolute Neuts (auto) 4.1 Absolute Nucleated RBC 0.000 Nucleated RBC % (auto) 0.0 PT INR APTT Sodium 134 L 135 Potassium 4.9 4.9 Chloride 100 100 Carbon Dioxide 26 26 Anion Gap 13 14 BUN 14 13 Creatinine 0.79 0.74 Estim Creat Clear Calc 90.7 96.9 Estimated GFR > 60 > 60 Random Glucose Fasting Glucose 102 H 86 Lactic Acid Calcium 9.2 8.9 Iron TIBC % Saturation Unsat Iron Binding Ferritin Total Bilirubin 0.2 0.2 AST 19 18 ALT 17 18 Alkaline Phosphatase 116 121 H Lactate Dehydrogenase Total Protein 6.3 L 6.3 L Albumin 3.4 L 3.4 L Carcinoembryonic Ag Prostate Specific Ag Vitamin B12 Folate Urine Color Urine Appearance Urine pH Ur Specific [place] Urine Protein Urine Glucose (UA) Urine Ketones Urine Blood Urine Nitrite Ur Leukocyte Esterase Urine RBC Urine WBC Ur Squamous Epith Cells Urine Bacteria Urine Mucus COVID-19 (JAS) COVID-19 [facility] [employer] Com Blood Type Antibody Screen 09/10/21 09/10/21 09/11/21 05:21 05:21 05:30 WBC 6.1 RBC 3.89 L Hgb 10.0 L Hct 32.7 L MCV 84.1 MCH 25.7 L MCHC 30.6 L RDW 15.5 Plt Count 383 MPV 10.0 Immature Gran % (Auto) 0.3 Neut % (Auto) 60.0 Lymph % (Auto) 23.4 [place] % (Auto) 12.2 H Eos % (Auto) 3.8 Baso % (Auto) 0.3 Lymph # (Auto) 1.4 [place] # (Auto) 0.7 Eos # (Auto) 0.2 Baso # (Auto) 0.0 Abs Immat Gran (auto) 0.02 Absolute Neuts (auto) 3.6 Absolute Nucleated RBC 0.000 Nucleated RBC % (auto) 0.0 PT INR APTT Sodium 135 Potassium 4.9 Chloride 102 Carbon Dioxide 29 Anion Gap 9 L BUN 14 Creatinine 0.76 Estim Creat Clear Calc 94.3 Estimated GFR > 60 Random Glucose Fasting Glucose 92 Lactic Acid Calcium 9.1 Iron TIBC % Saturation Unsat Iron Binding Ferritin Total Bilirubin < 0.2 AST 19 ALT 19 Alkaline Phosphatase 112 Lactate Dehydrogenase 157 Total Protein 6.0 L Albumin 3.3 L Carcinoembryonic Ag Prostate Specific Ag Vitamin B12 Folate Urine Color Urine Appearance Urine pH Ur Specific [place] Urine Protein Urine Glucose (UA) Urine Ketones Urine Blood Urine Nitrite Ur Leukocyte Esterase Urine RBC Urine WBC Ur Squamous Epith Cells Urine Bacteria Urine Mucus COVID-19 (JAS) COVID-19 [facility] Blood Type A Positive Antibody Screen NEGATIVE Airway Mallampati Class: I TM Dist: >3cm Neck ROM: Full Denture: Upper and Lower Loose/Missing/Broken Teeth: Yes Heart: rrr Lungs: bl breath sounds Assessment and Plan Assessment Anesthesia Assessment: Anesthesia Plan Discussed and Chart Reviewed Final Anesthetic Review Family History of Problems with Anesthesia: No History of Problems with Anesthesia: No NPO: Yes ASA Class: III Final Preanesthetic Review: Meds/Allgs Chart Reviewed, Consent Obtained/Reviewed and Anes Risks/Benef Reviewed Patient Risk: High Procedure Risk: High Anesthetic Plan Anesthetic Plan: GA Disposition: Inp. Admit - Standard Bed
--- NOTE | 2021-09-11 12:22 | P.PNIM_ITS ---
Subjective Subjective Date of Service: 09/11/21 Interval History: No new complaints NPO for OR Review of Systems Review of Systems: Yes all other systems are reviewed and are negative Physical Exam Vital Signs: Vital Signs: Last Vital Signs Temp 97.3 F 09/11/21 07:51 Pulse 75 09/11/21 09:48 Resp 17 09/11/21 09:48 BP 142/72 H 09/11/21 09:48 Pulse Ox 98 09/11/21 09:48 BMI result Body Mass Index 21.2 Gen: in no acute distress HEENT: sclera anicteric, moist mucus membranes Neck: supple Lungs: clear to auscultation bilaterally Heart: regular rate and rhythm, no murmurs Abd: soft, non-tender, non-distended Ext: no edema Skin: warm/well-perfused Neuro: alert and oriented x3, no focal findings Psych: appropriate affect Objective Data Active Medications Acetaminophen (Acetaminophen 325 Mg Tablet) 650 mg PO Q6H PRN PRN Reason: Pain, Mild (Pain Scale 1-3) Docusate Sodium (Docusate Sodium 100 Mg Capsule) 100 mg PO BID [facility] Last Admin: 09/11/21 07:09 Dose: Not Given Documented by: TWAN Non-Admin Reason: NPO Lactated Ringer's (Lr) 1,000 mls @ 80 mls/hr IVCONT .[id number] [facility] Last Admin: 09/11/21 08:35 Dose: 80 mls/hr Documented by: TWAN Ondansetron HCl (Ondansetron Hcl 4 Mg/2 Ml Vial) 4 mg IVPUSH Q8H PRN PRN Reason: Nausea and Vomiting Sodium Biphosphate/Sodium Phosphate (Sodium Phosphate,[place]-Dibasic 133 Ml Enema) 133 ml [place] ONCE PRN PRN Reason: Consult order Last Admin: 09/04/21 11:20 Dose: 133 ml Documented by: JASON Sodium Biphosphate/Sodium Phosphate (Sodium Phosphate,[place]-Dibasic 133 Ml Enema) 133 ml [place] ONCE PRN PRN Reason: Consult order Last Admin: 09/04/21 12:34 Dose: 133 ml Documented by: JASON Sodium Chloride (0.9 % Sodium Chloride Flush 3 Ml Syringe) 3 ml IVFLUSH QSHIFT [facility] Last Admin: 02/17/22 07:07 Dose: 3 ml Documented by: TWAN Labs CBC & Chem 7: 09/10/21 05:21 09/10/21 05:21 Labs: Laboratory Results - last 24 hr 09/10/21 09/11/21 05:21 05:30 Lactate Dehydrogenase 157 Blood Type A Positive Antibody Screen NEGATIVE Assessment and Plan (1) Colonic mass: Status: Acute (2) Kidney mass: Status: Acute Plan hospital d#10 71yo M with no chronic conditions, no hx of prior colonoscopy, presenting with hematuria/pneumaturia, found to have 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, renal mass, 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
--- NOTE | 2021-09-11 16:25 | P.OP_ITS ---
Operative Note Operative Note Date of Service: 09/11/21 Narrative: preop diagnosis: malignant colovesical fistula postop diagnosis: Malignant colovesical fistula, with bulky tumor extension into the bladder and the right pelvic sidewall procedure: Laparoscopy assisted anterior resection, with EN bloc resection of bladder wall with the colovesical fistula, with end-colostomy from the proximal sigmoid surgeon: Nghia Downing MD co-surgeon: Humberto Clark MD licensed investment sales assistant: VITO Powell The patient is a 71-year-old male 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 He also had a right renal mass which was a renal cell cancer on biopsy. He had appeared to be metastatic lung lesions In view of his colovesical fistula, I had advised him to undergo resection of the involved rectosigmoidwith EN bloc resection of the involved bladder. This was discussed as well with the urologist Dr. Clark . He understood the technique of the procedure. He was aware of the risks including but not limited to bleeding, infections, as well as the benefits and alternatives. His family was aware of the for involved with the discussion . He understood that this surgery may be review of his renal cell cancer with pulmonary metastasis. The above plan was also discussed with the medical oncologist. The patient was brought to the operating room and placed in modified lithotomy position under general anesthesia via endotracheal tube. the abdomen and the perineum were prepped and draped in the usual sterile fashion. A surgical time- out was done. Stockton catheter had been inserted earlier I made a short low midline incision using blade 15 and this carried down through the full-thickness of the skin subcutaneous fat down to the fascia. The fascia was incised. The peritoneum was entered. We position the this wound retractor as well as the GelPort. We insufflated through the GelPort and with laparoscopic visualization, we inserted another 5/12 mm port the epigastric or year. The laparoscoped in position through this epigastric port. We using a 10 mm 30 degree angled scope. With laparoscopic position inserted a 5/12 mm port in the right lower quadrant through a small stab incision The patient is placed in a head down and right side down position. By doing so able to visualize the pelvis. Was able to follow the sigmoid and trace this all the way to the left colon as well as the distally towards the rectosigmoid. I was able to visualize the adherent 2 more at the rectosigmoid. This was stuck on the posterior wall of the bladder.There was note of bulky disease in the area, both on the colon side as well as on the bladder side I proceeded to free up the sigmoid proximally as well as the left colon by dividing the attachments along the white line of Toldt using the LigaSure. This allowed us to mobilize the entire left colon and reflect this medially. This allowed us to free up the entire sigmoid colon as well. I opened up the peritoneum of the rectosigmoid laterally using the LigaSure. I divided this using the LigaSure proximally and distally to allow mobilization of the rectosigmoid. I also did this on the lateral side on the left. Open that the peritoneum starting from our white line of Toldt and dissected this all the way to the rectosigmoid. We continued to mobilize the rectosigmoid along this plane of dissection. We proceeded with dissection all the way until were we were at the level of the tumor.Again the tumor was very bulky and we could not identify any plane initially a good segment of this rectosigmoid from the posterior wall of the bladder. I continued to mobilize distal to this on the peritoneum of the recto sigmoid on both sides so as we could go past the level of the tumor. at this point of the procedure, the urologist Dr. Clark was present. repair a seated with the plan of resection of the involved bladder wall. I marked the planned line of incision on the posterior bladder wall surrounding this adherent has of rectosigmoid using electrocautery. I then proceeded to dissect through the bladder wall anteriorly and entered the lumen. I was able to visualize the Stockton catheter. I did to then gently divide the bladder wall surrounding this more. As we continued to dissect the her wall surrounding this tumor, he we had noticed that the tumors actually very bulky as well within the lumen of the bladder. We had to therefore continue to dissect around this on the bladder wall side. We had difficulty with the exposure as well as with gym because of the size of the tumor from within the lumen I therefore had to alternate between dissecting the rectum on both sides laterally past the tumor as well as by palpating for the segment of the r ectosigmoid distal To the tumor and the colovesical fistula, to make sure that we were not entering the lumen of the colon while doing an EN bloc resection of the markedly adherent wall. since the planes will difficult anteriorly and laterally on the right side in view of the bulky nature of the tumor, I proceeded to therefore complete arm 1 of his rectum. I chose a healthy segment of the sigmoid proximally and created a mesenteric window. This was transected using an the ARTUR stapler. I then proceeded to divide the attached mesentery starting from segment going distally until we reached the mesorectum. I then carefully identified up plane of the mesorectum and divided this using the LigaSure as well as with blunt dissection to separate the mesorectum from the presacral area. We proceeded with this dissection until we were past the tumor. with continue to define a plane of dissection of the mesorectum surrounding the posterior aspect and laterally. at this point, the on the area that seemed to be remaining on resected was the area anterolaterally on the rectum this was attached to the bladder wall Since the planes were very difficult to identify, we proceeded to therefore converted to open from here on for this part of the EN bloc resection. The urologist was scrubbed in from here on. the incision was extended to the level of the pubis. Retractors were placed. I pulled up the rectosigmoid to allow as to identify the interface of the bladder and the bone itself. This allowed us to visualize the involve bladder wall. We transected this using electrocautery, starting from the left side and we proceeded with this all the way to the right side, with care being taken so as to make sure that we were not near the area of the ureteral orifice. There was note of very bulky tumor between the rectosigmoid and the bladder on the under lateral side on the right. We therefore had to include extension of the tumor at the pelvic sidewall. We had to divide this with the LigaSure as well as electrocautery . We had spent an extended period of time doing this EN bloc resection because of the bulky nature of the tumor involving the bladder as well as on the pelvic sidewall. Eventually, I was able to separate this rectosigmoid the EN bloc resection of the bladder. I was therefore able get past this circumferentially with palpation and visualization. I therefore divided the rectosigmoid distal to the tumor using a radial stapler with multiple firings. This was eventually delivered and sent as a specimen. The distal end of the specimen was marked with a suture. There was note of tumor extension laterally on the pelvic sidewall. We excise this as well with LigaSure and the sent was sent as a separate specimen. We copiously irrigated. We observed for hemostasis, once hemostasis was ensured, proceeded to close the bladder. Dr. Clark examined the lumen of the bladder to make sure that we were away from the ureteral of opening. He closed the bladder wall wiith multiple of Dexon 3- 0 sutures which he may discussed separately. this was tested multiple times until there was no leak. We positioned a the drain in the low pelvis adjacent to the repair . We then proceeded to for hemostasis. We irrigated. We suction out the irrigant fluid. Once hemostasis was ensured, proceeded to then do our end-colostomy . I decided not to do end to end anastomosis because of the bulky tumor in the pelvis along with likely positive margins. Excise a discoid piece of skin on the left lower quadrant that had been earlier marked using a blade 10. We dissected through the subcutaneous layer and divided the anterior fascia. We did muscle separation of the rectus fluid the posterior sheath and open this posterior sheath as well. We dilated this to allow 3 my fingers . Positioned a small-sized Rebel wound retractor through the stomal opening to allow as to easily pull the and colostomy . We used a [place] to pull up the stump of proximal sigmoid. there was no tension as this went through the stoma opening. the Rebel wound retractor on this stoma removed We then examined the entire no bowel starting from the ligament of Treitz all the way to the terminal ileum. There was no evidence of any bowel injury. I also examined the left colon sigmoid and this was healthy looking at any injury. We then proceeded to close the fascia with a running Maxon 1 stitch. We then proceeded to examine the peritoneum laparoscopically. Able to see this stoma which was not twisted. Furthermore, the fascial your was intact without any bowel loop caught in the sutures We then matured the ostomy. I excised the staple line. We secured the full- thickness of the wall of the stoma circumferentially to the subdermal layer of the abdominal wall with cyst Dexon 3-0 interrupted sutures. I probed the stoma with the finger and this was patent past the fascial layer All incisions and then infiltrated with Marcaine 0.5% for postop analgesia. Stoma appliance applied. Dressings were placed. The procedure was completed . The patient tolerated procedure well. There were no complication noted. Initial fine counts of sponges and instruments were correct. Estimated blood loss was about 400 cc. The patient was extubated without difficulty and transferred to the recovery room with stable vital signs.
--- NOTE | 2021-09-11 17:40 | P.OP_ITS ---
Operative Note Operative Note Date of Service: 09/11/21 Narrative: Please see Dr. Downing dictation for full description. This is a dictation regarding the resection of tumor from the bladder and bladder wall reconstruction. PreOperative Diagnosis: [place] rectal cancer invading into posterior bladder wall Post Operative Diagnosis: T4 colorectal cancer with local extension into posterior bladder wall and right perivesical space to pelvic sidewall Procedure: En block resection of colorectal cancer into posterior bladder wall with reconstruction of posterior wall Surgeon: Dr Humberto Clark assisting Anesthesia: General Indications for procedure: Initial presentation to Urology as outpatient 3 weeks ago with intermittent gross hematuria. During evaluation was admitted to hospital for abdominal pain. Found to have low colonic lesion with invasion into posterior bladder wall on CT scan. In addition had right lower pole renal cancer with metastatic nodules to lungs. Initial plan with David was to perform resection of colon cancer as a pallative procedure given T4 local invasion into bladder. He understood that he may require colostomy if unable to adequately resect and damage to his bladder was also a strong possibility which would require prolonged catheterization for bladder healing. Was also risk involved with damage to ureters as they came down to enter the bladder the trigone. Procedure: Dr. Downing will dictate the bulk of procedure including all initial maneuvers. At the time my involvement in the procedure started Dr. Daugherty as had already gained laparoscopic access and was dissecting the sigmoid from its mesentery running up to the left lateral sidewall. He completed this mobilization as well as the bowel from anterior he has ends. The left iliac artery internal and external had been skeletonized on the sidewall and the ureter had been identified crossing the medial aspect of the common femoral artery on the left. Please see his dictation for these mobilizations. The area of concern with fistulization into the bladder was dissected using the paddle cautery to separate the peritoneum and U shape over the superior aspect of the fistula and this was developed into the bladder. The bladder had been drained Stockton catheter in place. This was clamped in order prevent loss of pneumoperitoneum. Careful dissection was taken through peritoneal reflections to free the fistula. It was clear that the cancer fistulized into the bladder and there was changes to the bladder mucosa. Attempt was made to remove all abnormal bladder mucosa at the time of this resection however there was marked thickening particularly running in the right perivesical space over to the later al sidewall. It appeared that the cancer had extended into the perivesical fat and invaded into the bladder in the midline with extension in perivesical fat to the right pelvic sidewall. This made the dissection a challenge and Dr. Downing was able to make significant progress and a hand assisted fashion. Eventually due to the extensive thickening running in the right perivesical space of the lateral sidewall were unable to continue to progress laparoscopically and the resection was converted to an open procedure. This had been planned. The resection was able to be finished and the disease segment of bowel was removed from its attachment to midline bladder with cautery resection. It was clear that tumor was extending and was not able to be fully resected. We made every attempt to remove the bulk of the tumor however the planes were not clear and care was taken not to follow these down in the midline to involve the trigone. Dr. Downing fully describes the mobilization process in his operative note. In short the proximal portion of the bowel was released with stapler. Then after open component of the procedure had freed the bowel from the midline posterior bladder wall this was then removed using the circular stapler. Once the bowel had been cleared the bladder was examined using a head lamp and we could see the dissection came down to approximately 1.5 cm away from the midline trigone. Both ureteric orifices appeared in normal position through the bladder. Stockton catheter was in place. We closed the bladder defect which was approximately 3 in long in multiple layers using 3-0 Vicryl suture. The 1st layer was full thickness through the mucosal edge. The 2nd 2 layers were imbricated closure. The bladder was then filled with 120 cc of fluid and a small leak be seen coming from most inferior portion of the incision. Using 2 interrupted [id number] sutures we were able to close this area and on subsequent testing there was no leak noted. At this point the rest of the procedure proceeded with creation of a stoma. That is dictated elsewhere. A Stockton catheter will remain for a minimum of 2 weeks followed by cystogram in order to remove catheter. Pathology: 1. En block bowel resection 2. Bladder mucosal specimen 3. Right pelvic sidewall extension Drains: See other dictation
--- NOTE | 2021-09-11 17:46 | PM.EVENT ---
Event Note Date of Service: 09/11/21 Event Note: patient seen postop underwent lap assisted anterior resection with EN bloc resection of involved bladder wall for malignant colovesical fistula seems comfortable has adequate urine output, clear stable vital signs continue pain management discussed with daughter Hyacinth - patient had bulky tumor extending to the pelvic sidewall
--- NOTE | 2021-09-11 18:41 | PC.NURSE ---
pt arrived back from surgery , stoma bright pink , short cath intact draining yellow green urine . karen drain intact and draining serosang fluid , pt sleeping vss . pt appears comfortable
[2021-09-11] MEDS: Morphine Sulfate 4 MG/ML CARTRIDGE IVPUSH (20:42)
[2021-09-12] VITALS (7 sets, daily range): BP systolic 129–160; BP diastolic 62–74; PULSE 70–87; RESP 16–20; TEMP 36.5–37.3; O2SAT 96–100
[2021-09-12] MEDS: Lactated Ringers 1,000 ML 80 ML IVCONT ×2 (05:05→15:09)
[2021-09-12 06:13] LABS: Hematocrit 30.9 % (42.0-52.0); Hemoglobin 9.4 g/dl (14.0-18.0); Mean Corpuscular HGB Conc 30.4 g/dl (31.0-36.0); Mean Corpuscular Hemoglobin 25.8 pg (27.0-33.0); Mean Corpuscular Volume 84.7 fL (80.0-98.0); Mean Platelet Volume 10.3 fL (9.4-12.4); Platelet Count 347 X10*3/uL (160-400); Red Blood Count 3.65 X10*6/uL (4.60-5.80); Red Cell Distribution Width 15.3 % (11.0-16.0); White Blood Count 10.2 X10*3/uL (4.8-10.8)
[2021-09-12 06:34] LABS: Anion Gap 14 (12-20); Blood Urea Nitrogen 10 mg/dL (9-16); Calcium 8.4 mg/dL (8.4-10.2); Carbon Dioxide 26 mmol/L (22-29); Chloride 97 mmol/L (96-108); Creatinine Clr Calc Pharmacy 91.9; Estimated Glomerular Filt Rate > 60; Glucose Random 129 mg/dL (60-115); Potassium 5.2 mmol/L (3.3-5.1); Sodium 132 mmol/L (135-145)
[2021-09-12] MEDS: 0.9 % Sodium Chloride Flush 3 ML SYRINGE IVFLUSH ×2 (07:07→15:13)
[2021-09-12] MEDS: Morphine Sulfate 4 MG/ML CARTRIDGE IVPUSH ×2 (07:07→15:09)
[2021-09-12] MEDS: ondansetron HCL 4 MG/2 ML VIAL IVPUSH (08:57)
--- NOTE | 2021-09-12 09:25 | PM.PNGS ---
Subjective Subjective Date of Service: 09/12/21 <Michaela Powell PA-C - Last Filed: 09/12/21 09:33> 09/12/21 <Nghia Downing MD - Last Filed: 09/12/21 09:51> Interval history: Feels ok this morning. Pain is well controlled. Has not been OOB. Tolerating clear liquids, denies nausea. <Michaela Powell PA-C - Last Filed: 09/12/21 09:33> Physical Exam Vital Signs: Vital Signs: Last Vital Signs Temp 97.7 F 09/12/21 08:00 Pulse 82 09/12/21 08:00 Resp 18 09/12/21 08:00 BP 150/70 H 09/12/21 08:00 Pulse Ox 99 09/12/21 08:00 BMI result Body Mass Index 21.2 <CHRISTA Dickson Last Filed: 09/12/21 09:33> Const: General: comfortable, no acute distress and alert <Michaela Powell PA-C - Last Filed: 09/12/21 09:33> Orientation/consciousness: patient oriented x3 <Michaela Powell PA-C - Last Filed: 09/12/21 09:33> Resp: Effort & Inspection: normal respiratory effort <CHRISTA Dickson Last Filed: 09/12/21 09:33> GI: Other: ostomy pink, edematous, no gas or output in appliance; CANDELARIO with serosanguineous drainage <Michaela Powell PA-C - Last Filed: 09/12/21 09:33> Inspection: No distended and Yes incision (dressing cdi) <CHRISTA Dickson Last Filed: 09/12/21 09:33> Palpation (GI): Soft to palpation, Tenderness to palpation present (GI) (mild, incisional), no guarding and not rigid <CHRISTA Dickson Last Filed: 09/12/21 09:33> Percussion: Yes normal to percussion <CHRISTA Dickson Last Filed: 09/12/21 09:33> : Other: short in place <Michaela Powell PA-C - Last Filed: 09/12/21 09:33> Skin: General skin exam: no rashes or lesions noted <CHRISTA Dickson Last Filed: 09/12/21 09:33> Neuro: General: patient oriented x3 <CHRISTA Dickson Last Filed: 09/12/21 09:33> Extrem: General: Yes no clubbing, cyanosis or edema <CHRISTA Dickson Last Filed: 09/12/21 09:33> Objective Data Active Medications Acetaminophen (Acetaminophen 325 Mg Tablet) 650 mg PO Q6H PRN PRN Reason: Pain, Mild (Pain Scale 1-3) Fentanyl (Fentanyl Citrate/Pf 100 Mcg/2 Ml Vial) 25 mcg IVPUSH Q5M PRN; Protocol PRN Reason: Pain, Moderate (Pain Scale 4-6 Hydromorphone HCl (Hydromorphone Hcl 0.5 Mg/0.5 Ml Syringe) 0.25 mg IVPUSH Q5M PRN; Protocol PRN Reason: Pain, Severe (Pain Scale 7-10) Lactated Ringer's (Lr) 1,000 mls @ 80 mls/hr IVCONT .[id number] [facility] Last Admin: 09/12/21 05:05 Dose: 80 mls/hr Documented by: BRIGETTE Promethazine HCl 12.5 mg/ (Sodium Chloride) 50.5 mls @ 202 mls/hr IV ONCE PRN PRN Reason: Nausea and Vomiting Acetaminophen (Ofirmev) 1,000 mg in 100 mls @ 400 mls/hr IV Q6H [facility] Stop: 09/12/21 11:14 Last Infusion: 09/12/21 05:29 Dose: 0 mls/hr Documented by: BRIGETTE Morphine Sulfate (Morphine Sulfate 4 Mg/Ml Cartridge) 4 mg IVPUSH Q3H PRN; Protocol PRN Reason: Pain, Severe (Pain Scale 7-10) Last Admin: 09/12/21 07:07 Dose: 4 mg Documented by: MAYDA Ondansetron HCl (Ondansetron Hcl 4 Mg/2 Ml Vial) 4 mg IVPUSH Q8H PRN PRN Reason: Nausea and Vomiting Last Admin: 09/12/21 08:57 Dose: 4 mg Documented by: MAYDA Oxycodone HCl (Oxycodone Hcl Immed Release 5 Mg Tablet) 10 mg PO Q4H PRN PRN Reason: Pain, Moderate (Pain Scale 4-6 Sodium Biphosphate/Sodium Phosphate (Sodium Phosphate,[place]-Dibasic 133 Ml Enema) 133 ml [place] ONCE PRN PRN Reason: Consult order Last Admin: 09/04/21 11:20 Dose: 133 ml Documented by: JASON Sodium Biphosphate/Sodium Phosphate (Sodium Phosphate,[place]-Dibasic 133 Ml Enema) 133 ml [place] ONCE PRN PRN Reason: Consult order Last Admin: 09/04/21 12:34 Dose: 133 ml Documented by: JASON Sodium Chloride (0.9 % Sodium Chloride Flush 3 Ml Syringe) [facility] Last Admin: 09/12/21 07:07 Dose: 3 ml Documented by: MAYDA <Michaela Powell PA-C - Last Filed: 09/12/21 09:33> Labs CBC & Chem 7: : 09/12/21 05:41 09/12/21 05:41 <Michaela Powell PA-C - Last Filed: 09/12/21 09:33> Labs: Laboratory Results - last 24 hr 09/12/21 09/12/21 05:41 05:41 MCV 84.7 MCH 25.8 L MCHC 30.4 L RDW 15.3 Plt Count 347 MPV 10.3 Absolute Nucleated RBC 0.000 Nucleated RBC % (auto) 0.0 Anion Gap 14 Estim Creat Clear Calc 91.9 Estimated GFR > 60 Random Glucose 129 H D Calcium 8.4 D <Michaela Powell PA-C - Last Filed: 09/12/21 09:33> Procedures Date of Service Date of Service: 09/12/21 <Michaela Powell PA-C - Last Filed: 09/12/21 09:33> Progress Note: A&P Assessment and plan (1) Colon adenocarcinoma: Status: Acute <CHRISTA Dickson Last Filed: 09/12/21 09:33> Assessment and Plan: status post anterior resection, EN bloc excision of bladder wall, end colostomy says he now has good pain control urine output good stoma bowl with no significant output yet he looks well out of bed to chair on recliner pain management keep Short in also being followed by Urology Dr. Clark family updated eventually will need workup for pulmonary lesions treatment for renal cell carcinoma seen and examined independently agree with VITO Powell <Nghia Downing MD - Last Filed: 09/12/21 09:51> (2) Pulmonary nodule: Status: Acute <Michaela Powell PA-C - Last Filed: 09/12/21 09:33> Assessment and Plan: <Nghia Downing MD - Last Filed: 09/12/21 09:51> (3) Kidney mass: Status: Acute <Michaela Powell PA-C - Last Filed: 09/12/21 09:33> Plan 71 year old male 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? Maximal sigmoidoscopy showed an adenocarcinoma in the rectosigmoid at what appeared to be level 22 cm.? He also had a right renal mass which was a renal cell cancer on biopsy.? He had appeared to be metastatic lung lesions He is now POD #1 s/p laparoscopy assisted anterior resection, with resection of bladder wall with the?colovesical fistula, with end-colostomy from the proximal sigmoid. He is doing fairly well post op, pain well controlled. VSS. Abd exam benign with appropriate post op tenderness, viable appearing colostomy, incision dressing c/d/i. CANDELARIO drain serosanguineous output. Cont clear liquids until evidence of GI function. Encouraged OOB/ambulation and IS use today. Colostomy education. Short in place for 2 weeks, f/u outpt with Dr. Clark. <Michaela Powell PA-C - Last Filed: 09/12/21 09:33> Fall Risk Details Current Medications: Current Medications Acetaminophen (Acetaminophen 325 Mg Tablet) 650 mg PO Q6H PRN PRN Reason: Pain, Mild (Pain Scale 1-3) Fentanyl (Fentanyl Citrate/Pf 100 Mcg/2 Ml Vial) 25 mcg IVPUSH Q5M PRN; Protocol PRN Reason: Pain, Moderate (Pain Scale 4-6 Hydromorphone HCl (Hydromorphone Hcl 0.5 Mg/0.5 Ml Syringe) 0.25 mg IVPUSH Q5M PRN; Protocol PRN Reason: Pain, Severe (Pain Scale 7-10) Lactated Ringer's (Lr) 1,000 mls @ 80 mls/hr IVCONT .[id number] [facility] Last Admin: 09/12/21 05:05 Dose: 80 mls/hr Documented by: Promethazine HCl 12.5 mg/ (Sodium Chloride) 50.5 mls @ 202 mls/hr IV ONCE PRN PRN Reason: Nausea and Vomiting Acetaminophen (Ofirmev) 1,000 mg in 100 mls @ 400 mls/hr IV Q6H [facility] Stop: 09/12/21 11:14 Last Infusion: 09/12/21 05:29 Dose: Infused Documented by: Morphine Sulfate (Morphine Sulfate 4 Mg/Ml Cartridge) 4 mg IVPUSH Q3H PRN; Protocol PRN Reason: Pain, Severe (Pain Scale 7-10) Last Admin: 09/12/21 07:07 Dose: 4 mg Documented by: Ondansetron HCl (Ondansetron Hcl 4 Mg/2 Ml Vial) 4 mg IVPUSH Q8H PRN PRN Reason: Nausea and Vomiting Last Admin: 09/12/21 08:57 Dose: 4 mg Documented by: Oxycodone HCl (Oxycodone Hcl Immed Release 5 Mg Tablet) 10 mg PO Q4H PRN PRN Reason: Pain, Moderate (Pain Scale 4-6 Sodium Biphosphate/Sodium Phosphate (Sodium Phosphate,[place]-Dibasic 133 Ml Enema) 133 ml [place] ONCE PRN PRN Reason: Consult order Last Admin: 09/04/21 11:20 Dose: 133 ml Documented by: Sodium Biphosphate/Sodium Phosphate (Sodium Phosphate,[place]-Dibasic 133 Ml Enema) 133 ml [place] ONCE PRN PRN Reason: Consult order Last Admin: 09/04/21 12:34 Dose: 133 ml Documented by: Sodium Chloride (0.9 % Sodium Chloride Flush 3 Ml Syringe) 3 ml IVFLUSH [facility] Last Admin: 09/12/21 07:07 Dose: 3 ml Documented by: <Michaela Powell PA-C - Last Filed: 09/12/21 09:33> Time Spent With Patient Time: Total time spent is greater than 50% in coordination of care (as documented) at patient's floor/unit and/or counseling patient: <Michaela Powell PA-C - Last Filed: 09/12/21 09:33> Time with patient: 15 - 24 minutes <Michaela Powell PA-C - Last Filed: 09/12/21 09:33> Quality Stroke Does the patient have a stroke diagnosis?: No <Michaela Powell PA-C - Last Filed: 09/12/21 09:33> VTE Prior VTE?: No <Michaela Powell PA-C - Last Filed: 09/12/21 09:33> VTE Risk Level:: Medical - moderate - high <Michaela Powell PA-C - Last Filed: 09/12/21 09:33> VTE Device Contraindication: Treatment Not Indicated <Michaela Powell PA-C - Last Filed: 09/12/21 09:33> VTE Drug Contraindication: N/A - Med Ordered <Michaela Powell PA-C - Last Filed: 09/12/21 09:33>
[2021-09-12] MEDS: Sodium Zirconium Cyclosilicate 10 GM POWD.PACK PO (10:00)
--- NOTE | 2021-09-12 11:55 | HO.PM.IMPN ---
Subjective Subjective Date of Service: 09/12/21 Interval History: POD#1 Pain controlled On clear liquid diet Mild nausea Review of Systems Review of Systems: Yes all other systems are reviewed and are negative Physical Exam Vital Signs: Vital Signs: Last Vital Signs Temp 97.7 F 09/12/21 08:00 Pulse 82 09/12/21 10:50 Resp 18 09/12/21 08:00 BP 150/70 H 09/12/21 10:50 Pulse Ox 99 09/12/21 10:50 BMI result Body Mass Index 21.2 Gen: in no acute distress HEENT: sclera anicteric, moist mucus membranes Neck: supple Lungs: clear to auscultation bilaterally Heart: regular rate and rhythm, no murmurs Abd: stoma pink with no output yet, CANDELARIO with serosanguinous drainage : [place] draining urine stained with methylene blue Ext: no edema Skin: warm/well-perfused Neuro: alert and oriented x3, no focal findings Psych: appropriate affect Objective Data Active Medications Acetaminophen (Acetaminophen 325 Mg Tablet) 650 mg PO Q6H PRN PRN Reason: Pain, Mild (Pain Scale 1-3) Fentanyl (Fentanyl Citrate/Pf 100 Mcg/2 Ml Vial) 25 mcg IVPUSH Q5M PRN; Protocol PRN Reason: Pain, Moderate (Pain Scale 4-6 Hydromorphone HCl (Hydromorphone Hcl 0.5 Mg/0.5 Ml Syringe) 0.25 mg IVPUSH Q5M PRN; Protocol PRN Reason: Pain, Severe (Pain Scale 7-10) Lactated Ringer's (Lr) 1,000 mls @ 80 mls/hr IVCONT .[id number] [facility] Last Admin: 09/12/21 05:05 Dose: 80 mls/hr Documented by: BRIGETTE Promethazine HCl 12.5 mg/ (Sodium Chloride) 50.5 mls @ 202 mls/hr IV ONCE PRN PRN Reason: Nausea and Vomiting Morphine Sulfate (Morphine Sulfate 4 Mg/Ml Cartridge) 4 mg IVPUSH Q3H PRN; Protocol PRN Reason: Pain, Severe (Pain Scale 7-10) Last Admin: 09/12/21 07:07 Dose: 4 mg Documented by: MAYDA Ondansetron HCl (Ondansetron Hcl 4 Mg/2 Ml Vial) 4 mg IVPUSH Q8H PRN PRN Reason: Nausea and Vomiting Last Admin: 09/12/21 08:57 Dose: 4 mg Documented by: MAYDA Oxycodone HCl (Oxycodone Hcl Immed Release 5 Mg Tablet) 10 mg PO Q4H PRN PRN Reason: Pain, Moderate (Pain Scale 4-6 Sodium Biphosphate/Sodium Phosphate (Sodium Phosphate,[place]-Dibasic 133 Ml Enema) 133 ml [place] ONCE PRN PRN Reason: Consult order Last Admin: 09/04/21 11:20 Dose: 133 ml Documented by: JASON Sodium Biphosphate/Sodium Phosphate (Sodium Phosphate,[place]-Dibasic 133 Ml Enema) 133 ml [place] ONCE PRN PRN Reason: Consult order Last Admin: 09/04/21 12:34 Dose: 133 ml Documented by: JSAON Sodium Chloride (0.9 % Sodium Chloride Flush 3 Ml Syringe) 3 ml IVFLUSH QSHIFT [facility] Last Admin: 09/12/21 07:07 Dose: 3 ml Documented by: MAYDA Labs CBC & Chem 7: 09/12/21 05:41 09/12/21 05:41 Labs: Laboratory Results - last 24 hr 09/12/21 09/12/21 05:41 05:41 MCV 84.7 MCH 25.8 L MCHC 30.4 L RDW 15.3 Plt Count 347 MPV 10.3 Absolute Nucleated RBC 0.000 Nucleated RBC % (auto) 0.0 Anion Gap 14 Estim Creat Clear Calc 91.9 Estimated GFR > 60 Random Glucose 129 H D Calcium 8.4 D Assessment and Plan (1) Colonic mass: Status: Acute (2) Kidney mass: Status: Acute Plan hospital d#11 71yo M with no chronic conditions, no hx of prior colonoscopy, presenting with hematuria/pneumaturia, found to have 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, renal mass, pulmonary masses diagnosed with adenoCA of sigmoid colon plus renal clear cell carcinoma # sigmoid adenoCA invading bladder wall # colovesical fistula - POD#1 laparoscopic-assisted anterior resection of colorectal CA into posterior bladder wall with reconstruction of posterior wall and end-colostomy from proximal sigmoid by Amaya Downing + Eduardo - [place] for at least 2 wk followed by cystogram - pathology pending - colostomy teaching, advance diet when bowel function returns - pain control with oxycodone + morphine # renal clear cell carcinoma - Heme/Onc consulted, needs biopsy of pulmonary masses to see if metastatic # VTE ppx - SCDs - start LMWH tomorrow; will need extended prophylaxis for 4 wk postop due to cancer surgery Quality Stroke Does the patient have a stroke diagnosis?: No VTE Prior VTE?: No VTE Risk Level:: Medical - moderate - high VTE Device Contraindication: Treatment Not Indicated VTE Drug Contraindication: N/A - Med Ordered
--- NOTE | 2021-09-12 12:55 | MHC.CM.PN ---
NURSE SENIOR TAX SPECIALIST NOTE, ELECTRONIC MEDICAL RECORD REVIEWED ALONG WITH CASE DISCUSSED WITH STAFF NURSE AND HOSPITLAIT . MET WITH PATIENT FOUND OUT FROM FINANCIAL SERVICES PATIENT HAS MEDICARE PART A ONLY . MEDICARE IMMM SIGHNED AND LEFT WITHMPATIENT AT BEDSIDE , EMILIO PER DOCUMENTATION ;(S/P 09/11/21 RESECTION OF TUMOR FROM THE BLADDER AND BBLADDER WALL RESCONSRTRUCTION WITH INDWELLING NEWSOME CATH FOR TWO WEEKS , ALSO SAME DAY WITH GENERAL SURGEON :9 PRE OP DX MALIGNANT COLONOVESICAL FISTULA WITH EXTENSION OF TUMOR TO RT BLADDER AND RIGHT PELVIC SIDE WALL LASPAROSCOPIC ASSISTED ANTERIOR RESECTION WITH END COLOSTOMY FROM THE PROXIMAL SIGMOID COLOC PATIENT WAS EVALUATED TODAY BY PHYSICAL THERAPY AND RECOMENDING SHORT TERM REHAB, I MEET WITH PATIENT AND REVIEWED A LIST WITH HIM OF AREA SKILLED NURISNG FACILITYIES WITHIN THE AREA HE WANTS TO STAY IN [facility] OR [place] FACILITIES, INITIAL REFERRAL TO [facility] , [facility] , [facility] AND [employer]) I ALSO GAVE HIM THE MEDICARE GOV.[id number] SITE FOR FAMILY TO REVIEW RATINGS AND LOOKA AT OTHER FACILITIES , ANTICIPATE PATIENT TO BE HERE [facility] WEEKEND , HE IS ONLY ON LCLEAR LIQUIDS, IV INFUSION VISCOSE CELLAR CHARGE HAND AND NEW OSTOMY ' DISCHARGE PLAN SHORT TERM REAHB NEW INFO PATIENT HAS MEDICARE PART A ONLY MEDICARE IMMM REVIEWED WITH HIM FAMILY ALSO APPLYING FOR [employer] APPLICATION SENIOR TAX SPECIALIST TO [facility] TO FOLLOW FOR DISCHARGE NEEDS
--- NOTE | 2021-09-12 13:32 | HO.POSTANES ---
Post Anesthesia Evaluation Post Anesthesia Evaluation Vital Signs: Vital Signs Temp Pulse Resp BP Pulse Ox 09/12/21 12:00 98.3 F 70 20 129/62 98 09/12/21 10:50 82 150/70 H 99 09/12/21 08:00 97.7 F 82 18 150/70 H 99 09/12/21 03:56 98.2 F 87 16 139/64 100 Anesthesia: General Endotracheal-GETA Mental Status: Awake Pain Control: Satisfactory Nausea/Vomiting: None Hydration: Adequate Anesthesia-Related Issues: No Anes. Related Issues
--- NOTE | 2021-09-12 13:33 | MHC.CLN ---
F/U S/P SURGERY 09/11 WITH COLOSTOMY. DIET=CLEAR LIQUIDS. ADDING ENSURE CLEAR TID FOR ADDITIONAL NUTRITION (720 KCAL, 24 G PROTEIN). FOLLOW FOR DIET TOLERANCE AND DIET ADVANCEMENT.
--- NOTE | 2021-09-12 15:54 | PM.EVENT ---
Event Note Date of Service: 09/12/21 Event Note: Seen on afternoon rounds Sitting up on recliner Says he is doing ?okay? Pain seems well controlled Abdomen soft Stoma without significant output he had Good urine output on fully, nonbloody, with tinge of blue from methylene dye Seems to be doing well postop Pain management Daughter Hyacinth updated by phone
[2021-09-12] MEDS: oxyCODONE HCl Immed Release 5 MG TABLET 10 MG PO (20:48)
[2021-09-13] VITALS (7 sets, daily range): BP systolic 133–178; BP diastolic 65–81; PULSE 77–86; RESP 16–18; TEMP 36.6–37.6; O2SAT 93–98
[2021-09-13] MEDS: Morphine Sulfate 4 MG/ML CARTRIDGE IVPUSH (00:54)
[2021-09-13] MEDS: ondansetron HCL 4 MG/2 ML VIAL IVPUSH (00:59)
[2021-09-13] MEDS: 0.9 % Sodium Chloride Flush 3 ML SYRINGE IVFLUSH ×3 (01:29→18:01)
[2021-09-13] MEDS: Lactated Ringers 1,000 ML 80 ML IVCONT (03:43)
[2021-09-13 05:50] LABS: Hematocrit 29.7 % (42.0-52.0); Hemoglobin 9.1 g/dl (14.0-18.0); Mean Corpuscular HGB Conc 30.6 g/dl (31.0-36.0); Mean Corpuscular Hemoglobin 26.1 pg (27.0-33.0); Mean Corpuscular Volume 85.3 fL (80.0-98.0); Mean Platelet Volume 10.1 fL (9.4-12.4); Platelet Count 361 X10*3/uL (160-400); Red Blood Count 3.48 X10*6/uL (4.60-5.80); Red Cell Distribution Width 15.3 % (11.0-16.0); White Blood Count 11.2 X10*3/uL (4.8-10.8)
[2021-09-13 06:07] LABS: Anion Gap 8 (12-20); Blood Urea Nitrogen 9 mg/dL (9-16); Calcium 8.2 mg/dL (8.4-10.2); Carbon Dioxide 33 mmol/L (22-29); Chloride 98 mmol/L (96-108); Estimated Glomerular Filt Rate > 60; Glucose Random 104 mg/dL (60-115); Potassium 5.2 mmol/L (3.3-5.1); Sodium 134 mmol/L (135-145)
[2021-09-13] MEDS: Sodium Zirconium Cyclosilicate 10 GM POWD.PACK PO (09:40)
[2021-09-13] MEDS: oxyCODONE HCl Immed Release 5 MG TABLET 10 MG PO ×2 (09:54→14:52)
--- NOTE | 2021-09-13 10:37 | P.PNGS_ITS ---
Subjective Subjective Date of Service: 09/13/21 Interval history: Reports some incisional this morning. Tolerating clear liquids but does get nauseous. He denies any vomiting. Would like to get out of bed today. Physical Exam Vital Signs: Vital Signs: Last Vital Signs Temp 98.1 F 09/13/21 08:00 Pulse 83 09/13/21 08:00 Resp 17 09/13/21 08:00 BP 169/80 H 09/13/21 08:00 Pulse Ox 93 09/13/21 08:00 Oxygen Flow Rate 0.5 09/12/21 16:12 BMI result Body Mass Index 21.2 Const: General: no acute distress Nutritional Appearance: thin Orientation/consciousness: patient oriented x3 Limitations: no limitations Resp: Other: Breathing comfortably on room air, no respiratory distress GI: Other: Abdomen is soft and dressings the midline incision are clean and intact. Ostomy is pink and viable in the left lower quadrant. No stool is noted at this time. CANDELARIO drain is mainly serous fluid. : Other: [place] catheter is draining clear nonbloody urine. Neuro: General: patient oriented x3 Extrem: Other: No edema Objective Data Active Medications Acetaminophen (Acetaminophen 325 Mg Tablet) 650 mg PO Q6H PRN PRN Reason: Pain, Mild (Pain Scale 1-3) Fentanyl (Fentanyl Citrate/Pf 100 Mcg/2 Ml Vial) 25 mcg IVPUSH Q5M PRN; Protocol PRN Reason: Pain, Moderate (Pain Scale 4-6 Hydromorphone HCl (Hydromorphone Hcl 0.5 Mg/0.5 Ml Syringe) 0.25 mg IVPUSH Q5M PRN; Protocol PRN Reason: Pain, Severe (Pain Scale 7-10) Promethazine HCl 12.5 mg/ (Sodium Chloride) 50.5 mls @ 202 mls/hr IV ONCE PRN PRN Reason: Nausea and Vomiting Morphine Sulfate (Morphine Sulfate 4 Mg/Ml Cartridge) 4 mg IVPUSH Q3H PRN; Protocol PRN Reason: Pain, Severe (Pain Scale 7-10) Last Admin: 09/13/21 00:54 Dose: 4 mg Documented by: TANJA Ondansetron HCl (Ondansetron Hcl 4 Mg/2 Ml Vial) 4 mg IVPUSH Q8H PRN PRN Reason: Nausea and Vomiting Last Admin: 09/13/21 00:59 Dose: 4 mg Documented by: TANJA Oxycodone HCl (Oxycodone Hcl Immed Release 5 Mg Tablet) 10 mg PO Q4H PRN PRN Reason: Pain, Moderate (Pain Scale 4-6 Last Admin: 09/13/21 09:54 Dose: 10 mg Documented by: SEEMA Sodium Biphosphate/Sodium Phosphate (Sodium Phosphate,[place]-Dibasic 133 Ml Enema) 133 ml [place] ONCE PRN PRN Reason: Consult order Last Admin: 09/04/21 11:20 Dose: 133 ml Documented by: JASON Sodium Biphosphate/Sodium Phosphate (Sodium Phosphate,[place]-Dibasic 133 Ml Enema) 133 ml [place] ONCE PRN PRN Reason: Consult order Last Admin: 09/04/21 12:34 Dose: 133 ml Documented by: JASON Sodium Chloride (0.9 % Sodium Chloride Flush 3 Ml Syringe) 3 ml IVFLUSH QSHIFT [facility] Last Admin: 09/13/21 09:40 Dose: 3 ml Documented by: SEEMA Labs CBC & Chem 7: 09/13/21 05:23 09/13/21 05:23 Labs: Laboratory Results - last 24 hr 09/13/21 09/13/21 05:23 05:23 MCV 85.3 MCH 26.1 L MCHC 30.6 L RDW 15.3 Plt Count 361 MPV 10.1 Absolute Nucleated RBC 0.000 Nucleated RBC % (auto) 0.0 Anion Gap 8 L Estim Creat Clear Calc 101.0 Estimated GFR > 60 Random Glucose 104 Calcium 8.2 L Procedures Date of Service Date of Service: 09/13/21 Progress Note: A&P Assessment and plan (1) Colon adenocarcinoma: Status: Acute (2) [place]-vesical fistula: Status: Acute Plan Patient is now pod 2 following low anterior resection and bladder resection for locally advanced rectal tumor. He has some incisional pain but overall feels improved compared to yesterday. His abdomen is soft and wounds are clean. Ostomy is viable. Urine is draining clear nonbloody urine. Will continue on clear liquids for now as he becomes nauseous after eating a small amount. Patient needs to continue [place] catheter drainage due to the bladder surgery as well. Patient encouraged to continue deep breathing exercises and ambulate with assistance. Expressed understanding and agrees with the plan. Fall Risk Details Current Medications: Current Medications Acetaminophen (Acetaminophen 325 Mg Tablet) 650 mg PO Q6H PRN PRN Reason: Pain, Mild (Pain Scale 1-3) Fentanyl (Fentanyl Citrate/Pf 100 Mcg/2 Ml Vial) 25 mcg IVPUSH Q5M PRN; Protocol PRN Reason: Pain, Moderate (Pain Scale 4-6 Hydromorphone HCl (Hydromorphone Hcl 0.5 Mg/0.5 Ml Syringe) 0.25 mg IVPUSH Q5M PRN; Protocol PRN Reason: Pain, Severe (Pain Scale 7-10) Promethazine HCl 12.5 mg/ (Sodium Chloride) 50.5 mls @ 202 mls/hr IV ONCE PRN PRN Reason: Nausea and Vomiting Morphine Sulfate (Morphine Sulfate 4 Mg/Ml Cartridge) 4 mg IVPUSH Q3H PRN; Protocol PRN Reason: Pain, Severe (Pain Scale 7-10) Last Admin: 09/13/21 00:54 Dose: 4 mg Documented by: Ondansetron HCl (Ondansetron Hcl 4 Mg/2 Ml Vial) 4 mg IVPUSH Q8H PRN PRN Reason: Nausea and Vomiting Last Admin: 09/13/21 00:59 Dose: 4 mg Documented by: Oxycodone HCl (Oxycodone Hcl Immed Release 5 Mg Tablet) 10 mg PO Q4H PRN PRN Reason: Pain, Moderate (Pain Scale 4-6 Last Admin: 09/13/21 09:54 Dose: 10 mg Documented by: Sodium Biphosphate/Sodium Phosphate (Sodium Phosphate,[place]-Dibasic 133 Ml Enema) 133 ml [place] ONCE PRN PRN Reason: Consult order Last Admin: 09/04/21 11:20 Dose: 133 ml Documented by: Sodium Biphosphate/Sodium Phosphate (Sodium Phosphate,[place]-Dibasic 133 Ml Enema) 133 ml [place] ONCE PRN PRN Reason: Consult order Last Admin: 09/04/21 12:34 Dose: 133 ml Documented by: Sodium Chloride (0.9 % Sodium Chloride Flush 3 Ml Syringe) 3 ml IVFLUSH [facility] Last Admin: 09/13/21 09:40 Dose: 3 ml Documented by: Time Spent With Patient Time: Total time spent is greater than 50% in coordination of care (as documented) at patient's floor/unit and/or counseling patient: Time with patient: 15 - 24 minutes Quality Stroke Does the patient have a stroke diagnosis?: No VTE Prior VTE?: No VTE Risk Level:: Medical - moderate - high VTE Device Contraindication: Treatment Not Indicated VTE Drug Contraindication: N/A - Med Ordered
--- NOTE | 2021-09-13 11:53 | HO.PM.IMPN ---
Subjective Subjective Date of Service: 09/13/21 Interval History: Postoperative pain controlled. Still no ostomy output. Tolerating small amount of clear liquids. Review of Systems Review of Systems: Yes all other systems are reviewed and are negative Physical Exam Vital Signs: Vital Signs: Last Vital Signs Temp 98.1 F 09/13/21 08:00 Pulse 83 09/13/21 08:00 Resp 17 09/13/21 08:00 BP 169/80 H 09/13/21 08:00 Pulse Ox 93 09/13/21 08:00 Oxygen Flow Rate 0.5 09/12/21 16:12 BMI result Body Mass Index 21.2 Gen: in no acute distress HEENT: sclera anicteric, moist mucus membranes Neck: supple Lungs: clear to auscultation bilaterally Heart: regular rate and rhythm, no murmurs Abd: stoma pink with no output yet, CANDELARIO with serosanguinous drainage : [place] draining clear yellow urine Ext: no edema Skin: warm/well-perfused Neuro: alert and oriented x3, no focal findings Psych: appropriate affect Objective Data Active Medications Acetaminophen (Acetaminophen 325 Mg Tablet) 650 mg PO Q6H PRN PRN Reason: Pain, Mild (Pain Scale 1-3) Fentanyl (Fentanyl Citrate/Pf 100 Mcg/2 Ml Vial) 25 mcg IVPUSH Q5M PRN; Protocol PRN Reason: Pain, Moderate (Pain Scale 4-6 Hydromorphone HCl (Hydromorphone Hcl 0.5 Mg/0.5 Ml Syringe) 0.25 mg IVPUSH Q5M PRN; Protocol PRN Reason: Pain, Severe (Pain Scale 7-10) Promethazine HCl 12.5 mg/ (Sodium Chloride) 50.5 mls @ 202 mls/hr IV ONCE PRN PRN Reason: Nausea and Vomiting Morphine Sulfate (Morphine Sulfate 4 Mg/Ml Cartridge) 4 mg IVPUSH Q3H PRN; Protocol PRN Reason: Pain, Severe (Pain Scale 7-10) Last Admin: 09/13/21 00:54 Dose: 4 mg Documented by: TANJA Ondansetron HCl (Ondansetron Hcl 4 Mg/2 Ml Vial) 4 mg IVPUSH Q8H PRN PRN Reason: Nausea and Vomiting Last Admin: 09/13/21 00:59 Dose: 4 mg Documented by: TANJA Oxycodone HCl (Oxycodone Hcl Immed Release 5 Mg Tablet) 10 mg PO Q4H PRN PRN Reason: Pain, Moderate (Pain Scale 4-6 Last Admin: 09/13/21 09:54 Dose: 10 mg Documented by: SEEMA Sodium Biphosphate/Sodium Phosphate (Sodium Phosphate,Price-Dibasic 133 Ml Enema) 133 ml HI ONCE PRN PRN Reason: Consult order Last Admin: 09/04/21 11:20 Dose: 133 ml Documented by: JASON Sodium Biphosphate/Sodium Phosphate (Sodium Phosphate,Price-Dibasic 133 Ml Enema) 133 ml HI ONCE PRN PRN Reason: Consult order Last Admin: 09/04/21 12:34 Dose: 133 ml Documented by: JASON Sodium Chloride (0.9 % Sodium Chloride Flush 3 Ml Syringe) 3 ml IVFLUSH QSHIFT [facility] Last Admin: 09/13/21 09:40 Dose: 3 ml Documented by: SEEMA Labs CBC & Chem 7: 09/13/21 05:23 09/13/21 05:23 Labs: Laboratory Results - last 24 hr 09/13/21 09/13/21 05:23 05:23 MCV 85.3 MCH 26.1 L MCHC 30.6 L RDW 15.3 Plt Count 361 MPV 10.1 Absolute Nucleated RBC 0.000 Nucleated RBC % (auto) 0.0 Anion Gap 8 L Estim Creat Clear Calc 101.0 Estimated GFR > 60 Random Glucose 104 Calcium 8.2 L Assessment and Plan (1) Colonic mass: Status: Acute (2) Kidney mass: Status: Acute Plan hospital d#12 71yo M with no chronic conditions, no hx of prior colonoscopy, presenting with hematuria/pneumaturia, found to have 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, renal mass, pulmonary masses diagnosed with 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 will need extended prophylaxis for 4 wk postop due to cancer surgery Quality Stroke Does the patient have a stroke diagnosis?: No VTE Prior VTE?: No VTE Risk Level:: Medical - moderate - high VTE Device Contraindication: Treatment Not Indicated VTE Drug Contraindication: N/A - Med Ordered
[2021-09-13] MEDS: Enoxaparin Sodium 40 MG/0.4 ML SYRINGE SUBCUT (14:51)
[2021-09-14] VITALS (7 sets, daily range): BP systolic 149–205; BP diastolic 67–95; PULSE 72–80; RESP 17–20; TEMP 36.1–36.6; O2SAT 94–95
[2021-09-14] MEDS: 0.9 % Sodium Chloride Flush 3 ML SYRINGE IVFLUSH ×2 (01:24→18:07)
[2021-09-14] MEDS: oxyCODONE HCl Immed Release 5 MG TABLET 10 MG PO ×4 (02:14→18:21)
[2021-09-14 06:20] LABS: Hematocrit 31.5 % (42.0-52.0); Hemoglobin 9.6 g/dl (14.0-18.0); Mean Corpuscular HGB Conc 30.5 g/dl (31.0-36.0); Mean Corpuscular Hemoglobin 25.7 pg (27.0-33.0); Mean Corpuscular Volume 84.5 fL (80.0-98.0); Mean Platelet Volume 10.1 fL (9.4-12.4); Platelet Count 361 X10*3/uL (160-400); Red Blood Count 3.73 X10*6/uL (4.60-5.80); Red Cell Distribution Width 15.3 % (11.0-16.0); White Blood Count 10.1 X10*3/uL (4.8-10.8)
[2021-09-14 06:59] LABS: Anion Gap 12 (12-20); Blood Urea Nitrogen 10 mg/dL (9-16); Calcium 8.2 mg/dL (8.4-10.2); Carbon Dioxide 30 mmol/L (22-29); Chloride 95 mmol/L (96-108); Creatinine Clr Calc Pharmacy 103.9; Estimated Glomerular Filt Rate > 60; Glucose Random 89 mg/dL (60-115); Potassium 4.5 mmol/L (3.3-5.1); Sodium 132 mmol/L (135-145)
[2021-09-14] MEDS: ondansetron HCL 4 MG/2 ML VIAL IVPUSH (09:24)
--- NOTE | 2021-09-14 11:39 | HO.PM.IMPN ---
Subjective Subjective Date of Service: 09/14/21 Interval History: No acute issues overnight Review of Systems Denies CP Denies SOB Denies N/V/D Physical Exam Vital Signs: Vital Signs: Last Vital Signs Temp 97.8 F 09/14/21 07:49 Pulse 79 09/14/21 07:49 Resp 17 09/14/21 07:49 BP 167/79 H 09/14/21 07:49 Pulse Ox 94 09/14/21 07:49 Oxygen Flow Rate 0.5 09/12/21 16:12 BMI result Body Mass Index 21.2 Objective Data Active Medications Acetaminophen (Acetaminophen 325 Mg Tablet) 650 mg PO Q6H PRN PRN Reason: Pain, Mild (Pain Scale 1-3) Enoxaparin Sodium (Enoxaparin Sodium 40 Mg/0.4 Ml Syringe) 40 mg SUBCUT Q24H [facility] Last Admin: 09/13/21 14:51 Dose: 40 mg Documented by: SEEMA Fentanyl (Fentanyl Citrate/Pf 100 Mcg/2 Ml Vial) 25 mcg IVPUSH Q5M PRN; Protocol PRN Reason: Pain, Moderate (Pain Scale 4-6 Hydromorphone HCl (Hydromorphone Hcl 0.5 Mg/0.5 Ml Syringe) 0.25 mg IVPUSH Q5M PRN; Protocol PRN Reason: Pain, Severe (Pain Scale 7-10) Promethazine HCl 12.5 mg/ (Sodium Chloride) 50.5 mls @ 202 mls/hr IV ONCE PRN PRN Reason: Nausea and Vomiting Morphine Sulfate (Morphine Sulfate 4 Mg/Ml Cartridge) 4 mg IVPUSH Q3H PRN; Protocol PRN Reason: Pain, Severe (Pain Scale 7-10) Last Admin: 09/13/21 00:54 Dose: 4 mg Documented by: TANJA Ondansetron HCl (Ondansetron Hcl 4 Mg/2 Ml Vial) 4 mg IVPUSH Q8H PRN PRN Reason: Nausea and Vomiting Last Admin: 09/14/21 09:24 Dose: 4 mg Documented by: SEEMA Oxycodone HCl (Oxycodone Hcl Immed Release 5 Mg Tablet) 10 mg PO Q4H PRN PRN Reason: Pain, Moderate (Pain Scale 4-6 Last Admin: 09/14/21 09:24 Dose: 10 mg Documented by: SEEMA Sodium Biphosphate/Sodium Phosphate (Sodium Phosphate,[place]-Dibasic 133 Ml Enema) 133 ml HI ONCE PRN PRN Reason: Consult order Last Admin: 09/04/21 11:20 Dose: 133 ml Documented by: JASON Sodium Biphosphate/Sodium Phosphate (Sodium Phosphate,Dav[place]-Dibasic 133 Ml Enema) 133 ml HI ONCE PRN PRN Reason: Consult order Last Admin: 09/04/21 12:34 Dose: 133 ml Documented by: JASON Sodium Chloride (0.9 % Sodium Chloride Flush 3 Ml Syringe) 3 ml IVFLUSH QSHIFT [facility] Last Admin: 09/14/21 10:06 Dose: Not Given Documented by: MAKENNA Non-Admin Reason: flushed earlier Labs CBC & Chem 7: 09/14/21 05:44 09/14/21 05:44 Labs: Laboratory Results - last 24 hr 09/14/21 09/14/21 05:44 05:44 MCV 84.5 MCH 25.7 L MCHC 30.5 L RDW 15.3 Plt Count 361 MPV 10.1 Absolute Nucleated RBC 0.000 Nucleated RBC % (auto) 0.0 Anion Gap 12 Estim Creat Clear Calc 103.9 Estimated GFR > 60 Random Glucose 89 Calcium 8.2 L Assessment and Plan (1) Colon adenocarcinoma: Status: Acute (2) Renal cancer: Status: Acute (3) Pulmonary nodule: Status: Acute Plan hospital d#12 71yo M with no chronic conditions, no hx of prior colonoscopy, presenting with hematuria/pneumaturia, found to have 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 Hyperkalemia(resolved) - follow renals/divalents - VTE ppx LMWH ( will need extended prophylaxis for 4 wk postop Ca) Quality Stroke Does the patient have a stroke diagnosis?: No VTE Prior VTE?: No VTE Risk Level:: Medical - moderate - high VTE Device Contraindication: Treatment Not Indicated VTE Drug Contraindication: N/A - Med Ordered
[2021-09-14] MEDS: Enoxaparin Sodium 40 MG/0.4 ML SYRINGE SUBCUT (13:32)
[2021-09-15] VITALS (7 sets, daily range): BP systolic 111–223; BP diastolic 64–104; PULSE 69–79; RESP 16–18; TEMP 36.1–36.8; O2SAT 96–98
[2021-09-15] MEDS: Morphine Sulfate 4 MG/ML CARTRIDGE IVPUSH ×2 (00:57→04:01)
[2021-09-15] MEDS: hydrALAZINE HCl 20 MG/ML VIAL 5 MG IVPUSH (04:01)
[2021-09-15] MEDS: Dextrose 5 % and 0.45 % NaCl 1,000 ML 50 ML IVCONT (04:01)
--- NOTE | 2021-09-15 05:38 | PM.EVENT ---
Event Note Date of Service: 09/15/21 Event Note: Abdominal discomfort: Patient reports urinary urgency. Ordered for UA. Will also obtain CT abdomen Hypertensive urgency: Patient's systolic blood pressure went up as high as 230s. Patient denies any headaches or blurry visions. Will obtain a CT head Hydralazine IV p.r.n.
[2021-09-15 06:36] LABS: MANUAL DIFF FLAG NO
[2021-09-15 07:01] LABS: Basophils Percent Auto 0.2 % (0-2); Eosinophils Absolute Auto 0.1 X10*3/uL (0.0-0.4); Eosinophils Percent Auto 1.1 % (0-4); Hematocrit 32.2 % (42.0-52.0); Imm Gran Abs Auto 0.03 X10*3/uL (0.00-0.03); Imm Gran Pct Auto 0.3 % (0.0-0.4); Lymphocytes Absolute Auto 0.9 X10*3/uL (1.2-4.9); Lymphocytes Percent Auto 10.2 % (20-40); Mean Corpuscular HGB Conc 31.1 g/dl (31.0-36.0); Mean Corpuscular Volume 83.9 fL (80.0-98.0); Monocytes Absolute Auto 0.6 X10*3/uL (0.1-1.2); Neutrophils Absolute Auto 7.1 x10*3/uL (2.0-8.3); Neutrophils Percent Auto 81.2 % (45-73); Platelet Count 415 X10*3/uL (160-400); Red Blood Count 3.84 X10*6/uL (4.60-5.80); White Blood Count 8.7 X10*3/uL (4.8-10.8)
[2021-09-15 07:28] LABS: Alanine Aminotransferase 15 U/L (0-40); Albumin Level 2.8 g/dL (3.5-5.0); Alkaline Phosphatase 94 U/L (39-117); Anion Gap 12 (12-20); Aspartate Amino Transferase 18 U/L (5-37); Bilirubin Total 0.5 mg/dL (0.0-1.0); Blood Urea Nitrogen 11 mg/dL (9-16); Calcium 8.2 mg/dL (8.4-10.2); Carbon Dioxide 29 mmol/L (22-29); Chloride 93 mmol/L (96-108); Creatinine Clr Calc Pharmacy 98.2; Estimated Glomerular Filt Rate > 60; Glucose Fasting 116 mg/dL (60-99); Potassium 4.1 mmol/L (3.3-5.1); Sodium 130 mmol/L (135-145); Total Protein 5.2 g/dL (6.5-8.0)
--- NOTE | 2021-09-15 08:35 | P.PNGS_ITS ---
Subjective Subjective Date of Service: 09/15/21 Interval history: feels well this AM says his [place] was kinked last night no signficant stoma output he says he may have passed small amt of flatus via stoma hungry, asking for food Physical Exam Vital Signs: Vital Signs: Last Vital Signs Temp 97.8 F 09/15/21 08:00 Pulse 70 09/15/21 08:00 Resp 18 09/15/21 08:00 BP 159/73 H 09/15/21 08:00 Pulse Ox 98 09/15/21 08:00 Oxygen Flow Rate 0.5 09/12/21 16:12 BMI result Body Mass Index 21.2 Const: General: comfortable and no acute distress Resp: Effort & Inspection: normal respiratory effort Cardio: Rate: regular rate GI: Palpation (GI): Soft to palpation, not firm and nontender Objective Data Active Medications Acetaminophen (Acetaminophen 325 Mg Tablet) 650 mg PO Q6H PRN PRN Reason: Pain, Mild (Pain Scale 1-3) Amlodipine Besylate (Amlodipine Besylate 10 Mg Tablet) 10 mg PO DAILY [facility]; Protocol Enoxaparin Sodium (Enoxaparin Sodium 40 Mg/0.4 Ml Syringe) 40 mg SUBCUT Q24H [facility] Last Admin: 09/14/21 13:32 Dose: 40 mg Documented by: SEEMA Fentanyl (Fentanyl Citrate/Pf 100 Mcg/2 Ml Vial) 25 mcg IVPUSH Q5M PRN; Protocol PRN Reason: Pain, Moderate (Pain Scale 4-6 Hydralazine HCl (Hydralazine Hcl 20 Mg/Ml Vial) 5 mg IVPUSH Q6H PRN; Protocol PRN Reason: BP>180/90 Last Admin: 09/15/21 04:01 Dose: 5 mg Documented by: MARIA LUISA Hydromorphone HCl (Hydromorphone Hcl 0.5 Mg/0.5 Ml Syringe) 0.25 mg IVPUSH Q5M PRN; Protocol PRN Reason: Pain, Severe (Pain Scale 7-10) Sodium Chloride (Ns) 1,000 mls @ 50 mls/hr IVCONT .Q20H [facility] Last Admin: 09/15/21 06:42 Dose: Not Given Documented by: MARIA LUISA Non-Admin Reason: IV Running Dextrose/Sodium Chloride (D51/2ns) 1,000 mls @ 50 mls/hr IVCONT .Q20H [facility] Last Admin: 09/15/21 04:01 Dose: 50 mls/hr Documented by: MARIA LUISA Morphine Sulfate (Morphine Sulfate 4 Mg/Ml Cartridge) 4 mg IVPUSH Q3H PRN; Protocol PRN Reason: Pain, Severe (Pain Scale 7-10) Last Admin: 09/15/21 04:01 Dose: 4 mg Documented by: MARIA LUISA Ondansetron HCl (Ondansetron Hcl 4 Mg/2 Ml Vial) 4 mg IVPUSH Q8H PRN PRN Reason: Nausea and Vomiting Last Admin: 09/14/21 09:24 Dose: 4 mg Documented by: SEEMA Oxycodone HCl (Oxycodone Hcl Immed Release 5 Mg Tablet) 10 mg PO Q4H PRN PRN Reason: Pain, Moderate (Pain Scale 4-6 Last Admin: 09/14/21 18:21 Dose: 10 mg Documented by: MAKENNA Sodium Biphosphate/Sodium Phosphate (Sodium Phosphate,[place]-Dibasic 133 Ml Enema) 133 ml NM ONCE PRN PRN Reason: Consult order Last Admin: 09/04/21 11:20 Dose: 133 ml Documented by: JASON Sodium Biphosphate/Sodium Phosphate (Sodium Phosphate,[place]-Dibasic 133 Ml Enema) 133 ml NM ONCE PRN PRN Reason: Consult order Last Admin: 09/04/21 12:34 Dose: 133 ml Documented by: JASON Sodium Chloride (0.9 % Sodium Chloride Flush 3 Ml Syringe) [facility] Last Admin: 09/15/21 01:46 Dose: Not Given Documented by: MARIA LUISA Non-Admin Reason: Previously Administered Labs CBC & Chem 7: 09/15/21 06:24 09/15/21 06:24 Labs: Laboratory Results - last 24 hr 09/15/21 09/15/21 06:24 06:24 MCV 83.9 MCH 26.0 L MCHC 31.1 RDW 15.0 Plt Count 415 H MPV 10.0 Immature Gran % (Auto) 0.3 Neut % (Auto) 81.2 H Lymph % (Auto) 10.2 L [place] % (Auto) 7.0 Eos % (Auto) 1.1 Baso % (Auto) 0.2 Lymph # (Auto) 0.9 L [place] # (Auto) 0.6 Eos # (Auto) 0.1 Baso # (Auto) 0.0 Abs Immat Gran (auto) 0.03 Absolute Neuts (auto) 7.1 Absolute Nucleated RBC 0.000 Nucleated RBC % (auto) 0.0 Anion Gap 12 Estim Creat Clear Calc 98.2 Estimated GFR > 60 Fasting Glucose 116 H Calcium 8.2 L Total Bilirubin 0.5 AST 18 ALT 15 Alkaline Phosphatase 94 Total Protein 5.2 L Albumin 2.8 L Procedures Date of Service Date of Service: 09/15/21 Progress Note: A&P Assessment and plan (1) Colon adenocarcinoma: Status: Acute Assessment and Plan: s/p anterior resection, stoma, enbloc resection of involved bladder seems to be doing well has been ambulating await return of GI function clear liquids for now urine clear, good output labs ok Fall Risk Details Current Medications: Current Medications Acetaminophen (Acetaminophen 325 Mg Tablet) 650 mg PO Q6H PRN PRN Reason: Pain, Mild (Pain Scale 1-3) Amlodipine Besylate (Amlodipine Besylate 10 Mg Tablet) 10 mg PO DAILY [facility]; Protocol Enoxaparin Sodium (Enoxaparin Sodium 40 Mg/0.4 Ml Syringe) 40 mg SUBCUT Q24H [facility] Last Admin: 09/14/21 13:32 Dose: 40 mg Documented by: Fentanyl (Fentanyl Citrate/Pf 100 Mcg/2 Ml Vial) 25 mcg IVPUSH Q5M PRN; Protocol PRN Reason: Pain, Moderate (Pain Scale 4-6 Hydralazine HCl (Hydralazine Hcl 20 Mg/Ml Vial) 5 mg IVPUSH Q6H PRN; Protocol PRN Reason: BP>180/90 Last Admin: 09/15/21 04:01 Dose: 5 mg Documented by: Hydromorphone HCl (Hydromorphone Hcl 0.5 Mg/0.5 Ml Syringe) 0.25 mg IVPUSH Q5M PRN; Protocol PRN Reason: Pain, Severe (Pain Scale 7-10) Sodium Chloride (Ns) 1,000 mls @ 50 mls/hr IVCONT .Q20H [facility] Last Admin: 09/15/21 06:42 Dose: Not Given Documented by: Dextrose/Sodium Chloride (D51/2ns) 1,000 mls @ 50 mls/hr IVCONT .Q20H [facility] Last Admin: 09/15/21 04:01 Dose: 50 mls/hr Documented by: Morphine Sulfate (Morphine Sulfate 4 Mg/Ml Cartridge) 4 mg IVPUSH Q3H PRN; Protocol PRN Reason: Pain, Severe (Pain Scale 7-10) Last Admin: 09/15/21 04:01 Dose: 4 mg Documented by: Ondansetron HCl (Ondansetron Hcl 4 Mg/2 Ml Vial) 4 mg IVPUSH Q8H PRN PRN Reason: Nausea and Vomiting Last Admin: 09/14/21 09:24 Dose: 4 mg Documented by: Oxycodone HCl (Oxycodone Hcl Immed Release 5 Mg Tablet) 10 mg PO Q4H PRN PRN Reason: Pain, Moderate (Pain Scale 4-6 Last Admin: 09/14/21 18:21 Dose: 10 mg Documented by: Sodium Biphosphate/Sodium Phosphate (Sodium Phosphate,[place]-Dibasic 133 Ml Enema) 133 ml NM ONCE PRN PRN Reason: Consult order Last Admin: 09/04/21 11:20 Dose: 133 ml Documented by: Sodium Biphosphate/Sodium Phosphate (Sodium Phosphate,[place]-Dibasic 133 Ml Enema) 133 ml NM ONCE PRN PRN Reason: Consult order Last Admin: 09/04/21 12:34 Dose: 133 ml Documented by: Sodium Chloride (0.9 % Sodium Chloride Flush 3 Ml Syringe) [facility] [place] Last Admin: 09/15/21 01:46 Dose: Not Given Documented by: Time Spent With Patient Time: Total time spent is greater than 50% in coordination of care (as documented) at patient's floor/unit and/or counseling patient: Time with patient: 15 - 24 minutes Quality Stroke Does the patient have a stroke diagnosis?: No VTE Prior VTE?: No VTE Risk Level:: Medical - moderate - high VTE Device Contraindication: Treatment Not Indicated VTE Drug Contraindication: N/A - Med Ordered
[2021-09-15] MEDS: oxyCODONE HCl Immed Release 5 MG TABLET 10 MG PO ×2 (09:38→16:01)
[2021-09-15] MEDS: amLODIPine Besylate 10 MG TABLET PO (09:38)
[2021-09-15] MEDS: Enoxaparin Sodium 40 MG/0.4 ML SYRINGE SUBCUT (11:26)
--- NOTE | 2021-09-15 12:32 | MHC.CLN ---
F/U PATIENT IS DAY 5 OF CLEAR LIQUID DIET. DIET=CLEAR LIQUIDS WITH ENSURE CLEAR TID. SUPPLEMENT PROVIDES 720 KCALS, 24 G PROTEIN. FOLLOW FOR DIET ADVANCEMENT AND POSSIBLE ALTERNATIVE NUTRITION.
--- NOTE | 2021-09-15 12:55 | HO.PM.IMPN ---
Subjective Subjective Date of Service: 09/15/21 Interval History: Events of last 24 hours noted. BP responded well to a.m. amlodipine Review of Systems Denies chest pain Denies shortness of breath Denies nausea vomiting diarrhea Physical Exam Vital Signs: Vital Signs: Last Vital Signs Temp 98.0 F 09/15/21 11:51 Pulse 76 09/15/21 11:51 Resp 16 09/15/21 11:51 BP 133/69 09/15/21 11:51 Pulse Ox 96 09/15/21 11:51 Oxygen Flow Rate 0.5 09/12/21 16:12 BMI result Body Mass Index 21.2 Const: Other: No acute distress Resp: Other: Clear A/P Cardio: Other: -S4 +S1/S -S3 MRG GI: Other: soft NT/ND NABS x 4 quads Extrem: Other: no edema Objective Data Active Medications Acetaminophen (Acetaminophen 325 Mg Tablet) 650 mg PO Q6H PRN PRN Reason: Pain, Mild (Pain Scale 1-3) Amlodipine Besylate (Amlodipine Besylate 10 Mg Tablet) 10 mg PO DAILY [facility]; Protocol Last Admin: 09/15/21 09:38 Dose: 10 mg Documented by: GRAEME Enoxaparin Sodium (Enoxaparin Sodium 40 Mg/0.4 Ml Syringe) 40 mg SUBCUT Q24H [facility] Last Admin: 09/15/21 11:26 Dose: 40 mg Documented by: GRAEME Fentanyl (Fentanyl Citrate/Pf 100 Mcg/2 Ml Vial) 25 mcg IVPUSH Q5M PRN; Protocol PRN Reason: Pain, Moderate (Pain Scale 4-6 Hydralazine HCl (Hydralazine Hcl 20 Mg/Ml Vial) 5 mg IVPUSH Q6H PRN; Protocol PRN Reason: BP>180/90 Last Admin: 09/15/21 04:01 Dose: 5 mg Documented by: MARIA LUISA Hydromorphone HCl (Hydromorphone Hcl 0.5 Mg/0.5 Ml Syringe) 0.25 mg IVPUSH Q5M PRN; Protocol PRN Reason: Pain, Severe (Pain Scale 7-10) Sodium Chloride (Ns) 1,000 mls @ 50 mls/hr IVCONT .Q20H [facility] Last Admin: 09/15/21 06:42 Dose: Not Given Documented by: MARIA LUISA Non-Admin Reason: IV Running Dextrose/Sodium Chloride (D51/2ns) 1,000 mls @ 50 mls/hr IVCONT .Q20H [facility] Last Admin: 09/15/21 04:01 Dose: 50 mls/hr Documented by: MARIA LUISA Morphine Sulfate (Morphine Sulfate 4 Mg/Ml Cartridge) 4 mg IVPUSH Q3H PRN; Protocol PRN Reason: Pain, Severe (Pain Scale 7-10) Last Admin: 09/15/21 04:01 Dose: 4 mg Documented by: MARIA LUISA Ondansetron HCl (Ondansetron Hcl 4 Mg/2 Ml Vial) 4 mg IVPUSH Q8H PRN PRN Reason: Nausea and Vomiting Last Admin: 09/14/21 09:24 Dose: 4 mg Documented by: SEEMA Oxycodone HCl (Oxycodone Hcl Immed Release 5 Mg Tablet) 10 mg PO Q4H PRN PRN Reason: Pain, Moderate (Pain Scale 4-6 Last Admin: 09/15/21 09:38 Dose: 10 mg Documented by: GRAEME Sodium Biphosphate/Sodium Phosphate (Sodium Phosphate,[place]-Dibasic 133 Ml Enema) 133 ml [place] ONCE PRN PRN Reason: Consult order Last Admin: 09/04/21 11:20 Dose: 133 ml Documented by: JASON Sodium Biphosphate/Sodium Phosphate (Sodium Phosphate,[place]-Dibasic 133 Ml Enema) 133 ml [place] ONCE PRN PRN Reason: Consult order Last Admin: 09/04/21 12:34 Dose: 133 ml Documented by: JASON Sodium Chloride (0.9 % Sodium Chloride Flush 3 Ml Syringe) 3 [facility]USH [facility] Last Admin: 09/15/21 09:38 Dose: Not Given Documented by: GRAEME Non-Admin Reason: IV Running Labs CBC & Chem 7: 09/15/21 06:24 09/15/21 06:24 Labs: Laboratory Results - last 24 hr 09/15/21 09/15/21 06:24 06:24 MCV 83.9 MCH 26.0 L MCHC 31.1 RDW 15.0 Plt Count 415 H MPV 10.0 Immature Gran % (Auto) 0.3 Neut % (Auto) 81.2 H Lymph % (Auto) 10.2 L [place] % (Auto) 7.0 Eos % (Auto) 1.1 Baso % (Auto) 0.2 Lymph # (Auto) 0.9 L [place] # (Auto) 0.6 Eos # (Auto) 0.1 Baso # (Auto) 0.0 Abs Immat Gran (auto) 0.03 Absolute Neuts (auto) 7.1 Absolute Nucleated RBC 0.000 Nucleated RBC % (auto) 0.0 Anion Gap 12 Estim Creat Clear Calc 98.2 Estimated GFR > 60 Fasting Glucose 116 H Calcium 8.2 L Total Bilirubin 0.5 AST 18 ALT 15 Alkaline Phosphatase 94 Total Protein 5.2 L Albumin 2.8 L Assessment and Plan (1) Colon adenocarcinoma: Status: Acute (2) Renal cancer: Status: Acute (3) HTN (hypertension): Status: Acute Plan hospital d#12 71yo M with no chronic conditions, no hx of prior colonoscopy, presenting with hematuria/pneumaturia, found to have 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 Hyperkalemia(resolved) - follow renals/divalents 4.HTN -fair response to hydralazine overnight; amlodipine started this morning with good results -continue same and titrate as indicated VTE ppx LMWH ( will need extended prophylaxis for 4 wk postop Ca) Quality Stroke Does the patient have a stroke diagnosis?: No VTE Prior VTE?: No VTE Risk Level:: Medical - moderate - high VTE Device Contraindication: Treatment Not Indicated VTE Drug Contraindication: N/A - Med Ordered
--- NOTE | 2021-09-15 15:53 | PM.EVENT ---
Event Note Date of Service: 09/15/21 Event Note: continues to be comfortable denies signficant pain satble VS abd soft stoma - no stools yet, appears viable good UO, clear await good flatus, stools via stoma, then advance diet ambulating CANDELARIO scanty output
[2021-09-16] VITALS (8 sets, daily range): BP systolic 128–172; BP diastolic 56–73; PULSE 66–89; RESP 13–18; TEMP 36.3–37; O2SAT 96–100
[2021-09-16] MEDS: Dextrose 5 % and 0.45 % NaCl 1,000 ML 50 ML IVCONT ×2 (01:27→20:16)
[2021-09-16 06:20] LABS: MANUAL DIFF FLAG NO
[2021-09-16 06:32] LABS: Basophils Percent Auto 0.3 % (0-2); Eosinophils Absolute Auto 0.3 X10*3/uL (0.0-0.4); Eosinophils Percent Auto 4.6 % (0-4); Hematocrit 28.7 % (42.0-52.0); Hemoglobin 8.9 g/dl (14.0-18.0); Imm Gran Abs Auto 0.02 X10*3/uL (0.00-0.03); Imm Gran Pct Auto 0.3 % (0.0-0.4); Lymphocytes Absolute Auto 1.3 X10*3/uL (1.2-4.9); Lymphocytes Percent Auto 20.1 % (20-40); Mean Corpuscular Hemoglobin 25.9 pg (27.0-33.0); Mean Corpuscular Volume 83.4 fL (80.0-98.0); Mean Platelet Volume 9.8 fL (9.4-12.4); Monocytes Absolute Auto 0.7 X10*3/uL (0.1-1.2); Monocytes Percent Auto 10.4 % (2-11); Neutrophils Percent Auto 64.3 % (45-73); Platelet Count 386 X10*3/uL (160-400); Red Blood Count 3.44 X10*6/uL (4.60-5.80); Red Cell Distribution Width 15.1 % (11.0-16.0); White Blood Count 6.3 X10*3/uL (4.8-10.8)
[2021-09-16 07:03] LABS: Alanine Aminotransferase 16 U/L (0-40); Albumin Level 2.5 g/dL (3.5-5.0); Alkaline Phosphatase 95 U/L (39-117); Anion Gap 9 (12-20); Aspartate Amino Transferase 22 U/L (5-37); Bilirubin Total 0.4 mg/dL (0.0-1.0); Blood Urea Nitrogen 8 mg/dL (9-16); Carbon Dioxide 31 mmol/L (22-29); Chloride 98 mmol/L (96-108); Creatinine Clr Calc Pharmacy 102.4; Estimated Glomerular Filt Rate > 60; Glucose Fasting 90 mg/dL (60-99); Potassium 4.1 mmol/L (3.3-5.1); Sodium 134 mmol/L (135-145); Total Protein 4.6 g/dL (6.5-8.0)
--- NOTE | 2021-09-16 08:01 | PM.PNGS ---
Subjective Subjective Date of Service: 09/16/21 <Michaela Powell PA-C - Last Filed: 09/16/21 08:37> 09/16/21 <Nghia Downing MD - Last Filed: 09/16/21 14:06> Interval history: Has not required any pain medication since yesterday afternoon. Tolerating clear liquids and is hungry. Reports some flatus from ostomy. <Michaela Powell PA-C - Last Filed: 09/16/21 08:37> Physical Exam Vital Signs: Vital Signs: Last Vital Signs Temp 98.3 F 09/16/21 07:41 Pulse 75 09/16/21 07:41 Resp 13 09/16/21 07:41 BP 138/66 09/16/21 07:41 Pulse Ox 97 09/16/21 07:41 Oxygen Flow Rate 0.5 09/12/21 16:12 BMI result Body Mass Index 21.2 <Michaela Powell PA-C - Last Filed: 09/16/21 08:37> Const: General: comfortable, no acute distress and alert <Michaela Powell PA-C - Last Filed: 09/16/21 08:37> Orientation/consciousness: patient oriented x3 <Michaela Powell PA-C - Last Filed: 09/16/21 08:37> Resp: Effort & Inspection: normal respiratory effort <Michaela Powell PA-C - Last Filed: 09/16/21 08:37> GI: Other: CANDELARIO drain with serosanguineous output <Michaela Powell PA-C - Last Filed: 09/16/21 08:37> Inspection: No distended and Yes incision (midline incision with some central erythema) <Michaela Powell PA-C - Last Filed: 09/16/21 08:37> Palpation (GI): Soft to palpation, Tenderness to palpation present (GI) (minimal, incisional), no guarding and not rigid <CHRISTA Dickson Last Filed: 09/16/21 08:37> Percussion: Yes normal to percussion <Michaela Powell PA-C - Last Filed: 09/16/21 08:37> Skin: Other: warm and dry <Michaela Powell PA-C - Last Filed: 09/16/21 08:37> Neuro: General: patient oriented x3 <Michaela Powell PA-C - Last Filed: 09/16/21 08:37> Objective Data Active Medications Acetaminophen (Acetaminophen 325 Mg Tablet) 650 mg PO Q6H PRN PRN Reason: Pain, Mild (Pain Scale 1-3) Amlodipine Besylate (Amlodipine Besylate 10 Mg Tablet) 10 mg PO DAILY [facility]; Protocol Last Admin: 09/15/21 09:38 Dose: 10 mg Documented by: GRAEME Enoxaparin Sodium (Enoxaparin Sodium 40 Mg/0.4 Ml Syringe) 40 mg SUBCUT Q24H [facility] Last Admin: 09/15/21 11:26 Dose: 40 mg Documented by: GRAEME Fentanyl (Fentanyl Citrate/Pf 100 Mcg/2 Ml Vial) 25 mcg IVPUSH Q5M PRN; Protocol PRN Reason: Pain, Moderate (Pain Scale 4-6 Hydralazine HCl (Hydralazine Hcl 20 Mg/Ml Vial) 5 mg IVPUSH Q6H PRN; Protocol PRN Reason: BP>180/90 Last Admin: 09/15/21 04:01 Dose: 5 mg Documented by: MARIA LUISA Hydromorphone HCl (Hydromorphone Hcl 0.5 Mg/0.5 Ml Syringe) 0.25 mg IVPUSH Q5M PRN; Protocol PRN Reason: Pain, Severe (Pain Scale 7-10) Dextrose/Sodium Chloride (D51/2ns) 1,000 mls @ 50 mls/hr IVCONT .Q20H [facility] Last Admin: 09/16/21 01:27 Dose: 50 mls/hr Documented by: KEN Morphine Sulfate (Morphine Sulfate 4 Mg/Ml Cartridge) 4 mg IVPUSH Q3H PRN; Protocol PRN Reason: Pain, Severe (Pain Scale 7-10) Last Admin: 09/15/21 04:01 Dose: 4 mg Documented by: MARIA LUISA Ondansetron HCl (Ondansetron Hcl 4 Mg/2 Ml Vial) 4 mg IVPUSH Q8H PRN PRN Reason: Nausea and Vomiting Last Admin: 09/14/21 09:24 Dose: 4 mg Documented by: SEEMA Oxycodone HCl (Oxycodone Hcl Immed Release 5 Mg Tablet) 10 mg PO Q4H PRN PRN Reason: Pain, Moderate (Pain Scale 4-6 Last Admin: 09/15/21 16:01 Dose: 10 mg Documented by: WINSTON Sodium Biphosphate/Sodium Phosphate (Sodium Phosphate,[place]-Dibasic 133 Ml Enema) 133 ml [place] ONCE PRN PRN Reason: Consult order Last Admin: 09/04/21 11:20 Dose: 133 ml Documented by: JASON Sodium Biphosphate/Sodium Phosphate (Sodium Phosphate,[place]-Dibasic 133 Ml Enema) 133 ml [place] ONCE PRN PRN Reason: Consult order Last Admin: 09/04/21 12:34 Dose: 133 ml Documented by: JASON Sodium Chloride (0.9 % Sodium Chloride Flush 3 Ml Syringe) 3 ml IVFLUSH QSHIFT [facility] Last Admin: 09/16/21 01:27 Dose: Not Given Documented by: KEN Non-Admin Reason: IV Running <Michaela Powell PA-C - Last Filed: 09/16/21 08:37> Labs CBC & Chem 7: : 09/16/21 05:21 09/16/21 05:21 <Michaela Powell PA-C - Last Filed: 09/16/21 08:37> Labs: Laboratory Results - last 24 hr 09/16/21 09/16/21 05:21 05:21 MCV 83.4 MCH 25.9 L MCHC 31.0 RDW 15.1 Plt Count 386 MPV 9.8 Immature Gran % (Auto) 0.3 Neut % (Auto) 64.3 Lymph % (Auto) 20.1 [place] % (Auto) 10.4 Eos % (Auto) 4.6 H Baso % (Auto) 0.3 Lymph # (Auto) 1.3 [place] # (Auto) 0.7 Eos # (Auto) 0.3 Baso # (Auto) 0.0 Abs Immat Gran (auto) 0.02 Absolute Neuts (auto) 4.0 Absolute Nucleated RBC 0.000 Nucleated RBC % (auto) 0.0 Anion Gap 9 L Estim Creat Clear Calc 102.4 Estimated GFR > 60 Fasting Glucose 90 Calcium 8.0 L Total Bilirubin 0.4 AST 22 ALT 16 Alkaline Phosphatase 95 Total Protein 4.6 L Albumin 2.5 L <Michaela Powell PA-C - Last Filed: 09/16/21 08:37> Procedures Date of Service Date of Service: 09/16/21 <Michaela Powell PA-C - Last Filed: 09/16/21 08:37> Progress Note: A&P Assessment and plan (1) Renal cancer: Status: Acute <Michaela Powell PA-C - Last Filed: 09/16/21 08:37> Assessment and Plan: feels well not taking any pain meds says he had passed flatus via stoma abd soft, stoma with no stool, viable UO clear some redness on upper part of incision advance diet slowly looks well keep [place] in seen and examined - agree with VITO Powell <Nghia Downing MD - Last Filed: 09/16/21 14:06> (2) Pulmonary nodule: Status: Acute <Michaela Powell PA-C - Last Filed: 09/16/21 08:37> (3) Colon adenocarcinoma: Status: Acute <Michaela Powell PA-C - Last Filed: 09/16/21 08:37> Plan 71 year old male 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 He also had a right renal mass which was a renal cell cancer on biopsy. He had appeared to be metastatic lung lesions He is now POD #5 s/p laparoscopy assisted anterior resection, with resection of bladder wall with the colovesical fistula, with end-colostomy from the proximal sigmoid. Continues to do well post op, awaiting return of GI function. VSS. Abd exam remains benign- soft, nondistended, ostomy viable appearing. He did have some erythema centrally at midline incision- a couple lynn were removed and area probed with small release of serous fluid consistent with seroma. CANDELARIO drain low amt of serosanguineous output. Will advance to low residue diet. Encouraged OOB/ambulation and IS use today. Colostomy education. Keep CANDELARIO in place for now, likely remove prior to dc. [place] in place for 2 weeks, f/u outpt with Dr. Clark. <Michaela Powell PA-C - Last Filed: 09/16/21 08:37> Fall Risk Details Current Medications: Current Medications Acetaminophen (Acetaminophen 325 Mg Tablet) 650 mg PO Q6H PRN PRN Reason: Pain, Mild (Pain Scale 1-3) Amlodipine Besylate (Amlodipine Besylate 10 Mg Tablet) 10 mg PO DAILY [facility]; Protocol Last Admin: 09/15/21 09:38 Dose: 10 mg Documented by: Enoxaparin Sodium (Enoxaparin Sodium 40 Mg/0.4 Ml Syringe) 40 mg SUBCUT Q24H [facility] Last Admin: 09/15/21 11:26 Dose: 40 mg Documented by: Fentanyl (Fentanyl Citrate/Pf 100 Mcg/2 Ml Vial) 25 mcg IVPUSH Q5M PRN; Protocol PRN Reason: Pain, Moderate (Pain Scale 4-6 Hydralazine HCl (Hydralazine Hcl 20 Mg/Ml Vial) 5 mg IVPUSH Q6H PRN; Protocol PRN Reason: BP>180/90 Last Admin: 09/15/21 04:01 Dose: 5 mg Documented by: Hydromorphone HCl (Hydromorphone Hcl 0.5 Mg/0.5 Ml Syringe) 0.25 mg IVPUSH Q5M PRN; Protocol PRN Reason: Pain, Severe (Pain Scale 7-10) Dextrose/Sodium Chloride (D51/2ns) 1,000 mls @ 50 mls/hr IVCONT .Q20H [facility] Last Admin: 09/16/21 01:27 Dose: 50 mls/hr Documented by: Morphine Sulfate (Morphine Sulfate 4 Mg/Ml Cartridge) 4 mg IVPUSH Q3H PRN; Protocol PRN Reason: Pain, Severe (Pain Scale 7-10) Last Admin: 09/15/21 04:01 Dose: 4 mg Documented by: Ondansetron HCl (Ondansetron Hcl 4 Mg/2 Ml Vial) 4 mg IVPUSH Q8H PRN PRN Reason: Nausea and Vomiting Last Admin: 09/14/21 09:24 Dose: 4 mg Documented by: Oxycodone HCl (Oxycodone Hcl Immed Release 5 Mg Tablet) 10 mg PO Q4H PRN PRN Reason: Pain, Moderate (Pain Scale 4-6 Last Admin: 09/15/21 16:01 Dose: 10 mg Documented by: Sodium Biphosphate/Sodium Phosphate (Sodium Phosphate,[place]-Dibasic 133 Ml Enema) 133 ml CA ONCE PRN PRN Reason: Consult order Last Admin: 09/04/21 11:20 Dose: 133 ml Documented by: Sodium Biphosphate/Sodium Phosphate (Sodium Phosphate,[place]-Dibasic 133 Ml Enema) 133 ml [place] ONCE PRN PRN Reason: Consult order Last Admin: 09/04/21 12:34 Dose: 133 ml Documented by: Sodium Chloride (0.9 % Sodium Chloride Flush 3 Ml Syringe) 3 ml IVFLUSH QSNJFT [facility] Last Admin: 09/16/21 01:27 Dose: Not Given Documented by: <Michaela Powell PA-C - Last Filed: 09/16/21 08:37> Time Spent With Patient Time: Total time spent is greater than 50% in coordination of care (as documented) at patient's floor/unit and/or counseling patient: <Michalea Powell PA-C - Last Filed: 09/16/21 08:37> Time with patient: 25 - 35 minutes <Michaela Powell PA-C - Last Filed: 09/16/21 08:37> Quality Stroke Does the patient have a stroke diagnosis?: No <Michaela Powell PA-C - Last Filed: 09/16/21 08:37> VTE Prior VTE?: No <Michaela Powell PA-C - Last Filed: 09/16/21 08:37> VTE Risk Level:: Medical - moderate - high <Michaela Powell PA-C - Last Filed: 09/16/21 08:37> VTE Device Contraindication: Treatment Not Indicated <Michaela Powell PA-C - Last Filed: 09/16/21 08:37> VTE Drug Contraindication: N/A - Med Ordered <Michaela Powell PA-C - Last Filed: 09/16/21 08:37>
--- NOTE | 2021-09-16 09:13 | MHC.CM.PN ---
NURSE CASE GIGI NOTE ELECTRONIC MEDICAL RECORD REVIEWED PATIENT PASSING FLATUS FROM OSTOMY SITE , NO STOOL YET , ONCE STOOLIN PLANS POER DOCUMENTATION TO ADVANCE FROM CLEAR LIQUIDS TO DIET ADVANCEMENT, J, J-P DRAINING SEROSANGIOUS FLUID, HAS NEWSOME CATH , WILL NEED SHORT TER PLACEMENT. DISCHARGE PLAN TO STR INIATED REFERRALS ANGELICA ZAMBRANO , [facility] DOES NOT TAKE THIS PATIENTS INSURANCE . PLAN TO GET DATES FOR COVID VACINATION , CONFIRMED HAS HCP ON FILE
--- NOTE | 2021-09-16 09:57 | HO.PM.IMPN ---
Subjective Subjective Date of Service: 09/16/21 Interval History: No acute issues overnight. Denies pain (no pain meds overnight) Review of Systems Denies chest pain Denies shortness of breath Denies nausea vomiting diarrhea Physical Exam Vital Signs: Vital Signs: Last Vital Signs Temp 98.3 F 09/16/21 07:41 Pulse 75 09/16/21 09:31 Resp 13 09/16/21 07:41 BP 138/66 09/16/21 09:31 Pulse Ox 97 09/16/21 09:31 Oxygen Flow Rate 0.5 09/12/21 16:12 BMI result Body Mass Index 21.2 Const: Other: No acute distress Resp: Other: Clear A/P Cardio: Other: -S4 +S1/S -S3 MRG GI: Other: soft NT/ND NABS x 4 quads Extrem: Other: no edema Objective Data Active Medications Acetaminophen (Acetaminophen 325 Mg Tablet) 650 mg PO Q6H PRN PRN Reason: Pain, Mild (Pain Scale 1-3) Amlodipine Besylate (Amlodipine Besylate 10 Mg Tablet) 10 mg PO DAILY [facility]; Protocol Last Admin: 09/15/21 09:38 Dose: 10 mg Documented by: GRAEME Enoxaparin Sodium (Enoxaparin Sodium 40 Mg/0.4 Ml Syringe) 40 mg SUBCUT Q24H [facility] Last Admin: 09/15/21 11:26 Dose: 40 mg Documented by: GRAEME Fentanyl (Fentanyl Citrate/Pf 100 Mcg/2 Ml Vial) 25 mcg IVPUSH Q5M PRN; Protocol PRN Reason: Pain, Moderate (Pain Scale 4-6 Hydralazine HCl (Hydralazine Hcl 20 Mg/Ml Vial) 5 mg IVPUSH Q6H PRN; Protocol PRN Reason: BP>180/90 Last Admin: 09/15/21 04:01 Dose: 5 mg Documented by: MARIA LUISA Hydromorphone HCl (Hydromorphone Hcl 0.5 Mg/0.5 Ml Syringe) 0.25 mg IVPUSH Q5M PRN; Protocol PRN Reason: Pain, Severe (Pain Scale 7-10) Dextrose/Sodium Chloride (D51/2ns) 1,000 mls @ 50 mls/hr IVCONT .Q20H [facility] Last Admin: 09/16/21 01:27 Dose: 50 mls/hr Documented by: KEN Morphine Sulfate (Morphine Sulfate 4 Mg/Ml Cartridge) 4 mg IVPUSH Q3H PRN; Protocol PRN Reason: Pain, Severe (Pain Scale 7-10) Last Admin: 09/15/21 04:01 Dose: 4 mg Documented by: MARIA LUISA Ondansetron HCl (Ondansetron Hcl 4 Mg/2 Ml Vial) 4 mg IVPUSH Q8H PRN PRN Reason: Nausea and Vomiting Last Admin: 09/14/21 09:24 Dose: 4 mg Documented by: SEEMA Oxycodone HCl (Oxycodone Hcl Immed Release 5 Mg Tablet) 10 mg PO Q4H PRN PRN Reason: Pain, Moderate (Pain Scale 4-6 Last Admin: 09/15/21 16:01 Dose: 10 mg Documented by: WINSTON Sodium Biphosphate/Sodium Phosphate (Sodium Phosphate,[place]-Dibasic 133 Ml Enema) 133 ml [place] ONCE PRN PRN Reason: Consult order Last Admin: 09/04/21 11:20 Dose: 133 ml Documented by: JASON Sodium Biphosphate/Sodium Phosphate (Sodium Phosphate,[place]-Dibasic 133 Ml Enema) 133 ml [place] ONCE PRN PRN Reason: Consult order Last Admin: 09/04/21 12:34 Dose: 133 ml Documented by: JASON Sodium Chloride (0.9 % Sodium Chloride Flush 3 Ml Syringe) [facility] Last Admin: 09/16/21 01:27 Dose: Not Given Documented by: KEN Non-Admin Reason: IV Running Labs CBC & Chem 7: 09/16/21 05:21 09/16/21 05:21 Labs: Laboratory Results - last 24 hr 09/16/21 09/16/21 05:21 05:21 MCV 83.4 MCH 25.9 L MCHC 31.0 RDW 15.1 Plt Count 386 MPV 9.8 Immature Gran % (Auto) 0.3 Neut % (Auto) 64.3 Lymph % (Auto) 20.1 [place] % (Auto) 10.4 Eos % (Auto) 4.6 H Baso % (Auto) 0.3 Lymph # (Auto) 1.3 [place] # (Auto) 0.7 Eos # (Auto) 0.3 Baso # (Auto) 0.0 Abs Immat Gran (auto) 0.02 Absolute Neuts (auto) 4.0 Absolute Nucleated RBC 0.000 Nucleated RBC % (auto) 0.0 Anion Gap 9 L Estim Creat Clear Calc 102.4 Estimated GFR > 60 Fasting Glucose 90 Calcium 8.0 L Total Bilirubin 0.4 AST 22 ALT 16 Alkaline Phosphatase 95 Total Protein 4.6 L Albumin 2.5 L Assessment and Plan (1) Colon adenocarcinoma: Status: Acute (2) Renal cancer: Status: Acute (3) HTN (hypertension): Status: Acute Plan hospital d#12 71yo M with no chronic conditions, no hx of prior colonoscopy, presenting with hematuria/pneumaturia, found to have 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, renal mass, pulmonary masses diagnosed with adenoCA of sigmoid colon plus renal clear cell carcinoma 1.Adenocarcinoma of colon(laparoscopic visit with the weekendassisted anterior resection of colorectal CA into posterior bladder wall with reconstruction of posterior wall and end-colostomy from proximal sigmoid) with a - POD(5) doing well - pathology pending - pain well controlled with oxycodone + morphine (snow use overnight) 2.Renal clear cell carcinoma - Maintain [place] as per Urology - pulm Bx when appropriate 3. Hyponatremia -normalizing - follow renals/divalents 4.HTN -excellent response to amlodipine. -continue same and titrate as indicated VTE ppx LMWH ( will need extended prophylaxis for 4 wk postop Ca) Quality Stroke Does the patient have a stroke diagnosis?: No VTE Prior VTE?: No VTE Risk Level:: Medical - moderate - high VTE Device Contraindication: Treatment Not Indicated VTE Drug Contraindication: N/A - Med Ordered
[2021-09-16] MEDS: Acetaminophen 325 MG TABLET 650 MG PO (10:23)
[2021-09-16] MEDS: amLODIPine Besylate 10 MG TABLET PO (10:23)
[2021-09-16] MEDS: 0.9 % Sodium Chloride Flush 3 ML SYRINGE IVFLUSH (10:24)
[2021-09-16] MEDS: Enoxaparin Sodium 40 MG/0.4 ML SYRINGE SUBCUT (12:03)
--- NOTE | 2021-09-16 14:26 | MHC.CLN ---
Addendum entered by Caro Villafuerte 09/16/21 16:30: PATIENT REPORTS THAT HE WILL BE STAYNG WITH [address] SISTER AND [address] [place] UNTIL THEIRE BOILER CAN BE INSATALLED INTO THEIR HOUSE M INIBAN REFERALS TO [facility] , [facility] , ALSO SPOKE WITH PATIENTS DAUGHTER SNOW [phone] PATIENTS CAN BE REACHED AT [phone] Original Note: F/U PO INTAKE 75% X 2 MEALS DIET ADVANCED TO LOW FIBER WILL RE-START ENSURE CLEAR TID TO PROVIDE ADDITIONAL KCALS SUPPLEMENT PROVIDES 720 KCALS, 24 G PROTEIN MONITOR PO INTAKE CLOSELY
--- NOTE | 2021-09-16 15:31 | PC.NURSE ---
Bed alarm on ,patient refuses telesiter
--- NOTE | 2021-09-16 15:45 | PC.NURSE ---
all high risk fall precautions in place ,unable to add intervention in meditech
[2021-09-17 04:00] VITALS: BP 168/72; PULSE 74; RESP 14; TEMP 36.4; O2SAT 98
[2021-09-17 06:13] LABS: MANUAL DIFF FLAG NO
[2021-09-17 06:42] LABS: Alanine Aminotransferase 41 U/L (0-40); Albumin Level 2.6 g/dL (3.5-5.0); Alkaline Phosphatase 119 U/L (39-117); Anion Gap 10 (12-20); Aspartate Amino Transferase 46 U/L (5-37); Basophils Percent Auto 0.2 % (0-2); Bilirubin Total 0.3 mg/dL (0.0-1.0); Blood Urea Nitrogen 10 mg/dL (9-16); Calcium 8.1 mg/dL (8.4-10.2); Carbon Dioxide 30 mmol/L (22-29); Chloride 99 mmol/L (96-108); Creatinine Clr Calc Pharmacy 108.6; Eosinophils Absolute Auto 0.3 X10*3/uL (0.0-0.4); Eosinophils Percent Auto 3.9 % (0-4); Estimated Glomerular Filt Rate > 60; Glucose Fasting 116 mg/dL (60-99); Hematocrit 33.5 % (42.0-52.0); Hemoglobin 10.3 g/dl (14.0-18.0); Imm Gran Abs Auto 0.02 X10*3/uL (0.00-0.03); Imm Gran Pct Auto 0.2 % (0.0-0.4); Lymphocytes Absolute Auto 0.9 X10*3/uL (1.2-4.9); Lymphocytes Percent Auto 11.3 % (20-40); Mean Corpuscular HGB Conc 30.7 g/dl (31.0-36.0); Mean Corpuscular Hemoglobin 25.5 pg (27.0-33.0); Mean Corpuscular Volume 82.9 fL (80.0-98.0); Mean Platelet Volume 9.7 fL (9.4-12.4); Monocytes Absolute Auto 0.8 X10*3/uL (0.1-1.2); Neutrophils Absolute Auto 6.2 x10*3/uL (2.0-8.3); Neutrophils Percent Auto 74.4 % (45-73); Platelet Count 463 X10*3/uL (160-400); Potassium 4.1 mmol/L (3.3-5.1); Red Blood Count 4.04 X10*6/uL (4.60-5.80); Red Cell Distribution Width 15.2 % (11.0-16.0); Sodium 135 mmol/L (135-145); Total Protein 4.8 g/dL (6.5-8.0); White Blood Count 8.3 X10*3/uL (4.8-10.8)
[2021-09-17] MEDS: Acetaminophen 325 MG TABLET 650 MG PO (07:30)
[2021-09-17] MEDS: amLODIPine Besylate 10 MG TABLET PO (07:30)
[2021-09-17 07:47] VITALS: BP 141/71; PULSE 78; RESP 18; TEMP 36.3; O2SAT 96
--- NOTE | 2021-09-17 07:48 | P.PNGS_ITS ---
Subjective Subjective Date of Service: 09/17/21 Interval history: feels well tolerating regular diet some cramping last night Physical Exam Vital Signs: Vital Signs: Last Vital Signs Temp 97.4 F 09/17/21 07:47 Pulse 78 09/17/21 07:47 Resp 18 09/17/21 07:47 BP 141/71 H 09/17/21 07:47 Pulse Ox 96 09/17/21 07:47 Oxygen Flow Rate 0.5 09/12/21 16:12 BMI result Body Mass Index 21.2 Const: General: comfortable and no acute distress Resp: Effort & Inspection: normal respiratory effort Cardio: Rate: regular rate GI: Other: soft, nondistended, stoma functioning well, CANDELARIO drain - some clear serous ouput Objective Data Active Medications Acetaminophen (Acetaminophen 325 Mg Tablet) 650 mg PO Q6H PRN PRN Reason: Pain, Mild (Pain Scale 1-3) Last Admin: 09/17/21 07:30 Dose: 650 mg Documented by: SOUMYA Amlodipine Besylate (Amlodipine Besylate 10 Mg Tablet) 10 mg PO DAILY [facility]; Protocol Last Admin: 09/17/21 07:30 Dose: 10 mg Documented by: SOUMYA Enoxaparin Sodium (Enoxaparin Sodium 40 Mg/0.4 Ml Syringe) 40 mg SUBCUT Q24H [facility] Last Admin: 09/16/21 12:03 Dose: 40 mg Documented by: ATTILA Hydralazine HCl (Hydralazine Hcl 20 Mg/Ml Vial) 5 mg IVPUSH Q6H PRN; Protocol PRN Reason: BP>180/90 Last Admin: 09/15/21 04:01 Dose: 5 mg Documented by: MARIA LUISA Dextrose/Sodium Chloride (D51/2ns) 1,000 mls @ 50 mls/hr IVCONT .Q20H [facility] Last Admin: 09/16/21 20:16 Dose: 50 mls/hr Documented by: WINSTON Ondansetron HCl (Ondansetron Hcl 4 Mg/2 Ml Vial) 4 mg IVPUSH Q8H PRN PRN Reason: Nausea and Vomiting Last Admin: 09/14/21 09:24 Dose: 4 mg Documented by: SEEMA Sodium Biphosphate/Sodium Phosphate (Sodium Phosphate,[place]-Dibasic 133 Ml Enema) 133 ml [place] ONCE PRN PRN Reason: Consult order Last Admin: 09/04/21 11:20 Dose: 133 ml Documented by: JASON Sodium Biphosphate/Sodium Phosphate (Sodium Phosphate,[place]-Dibasic 133 Ml Enema) 133 ml [place] ONCE PRN PRN Reason: Consult order Last Admin: 09/04/21 12:34 Dose: 133 ml Documented by: JASON Sodium Chloride (0.9 % Sodium Chloride Flush 3 Ml Syringe) [facility] Last Admin: 09/17/21 00:25 Dose: Not Given Documented by: ANTONIA Non-Admin Reason: IV Running Labs CBC & Chem 7: 09/17/21 05:59 09/17/21 05:59 Labs: Laboratory Results - last 24 hr 09/17/21 09/17/21 05:59 05:59 MCV 82.9 MCH 25.5 L MCHC 30.7 L RDW 15.2 Plt Count 463 H MPV 9.7 Immature Gran % (Auto) 0.2 Neut % (Auto) 74.4 H Lymph % (Auto) 11.3 L [place] % (Auto) 10.0 Eos % (Auto) 3.9 Baso % (Auto) 0.2 Lymph # (Auto) 0.9 L [place] # (Auto) 0.8 Eos # (Auto) 0.3 Baso # (Auto) 0.0 Abs Immat Gran (auto) 0.02 Absolute Neuts (auto) 6.2 Absolute Nucleated RBC 0.000 Nucleated RBC % (auto) 0.0 Anion Gap 10 L Estim Creat Clear Calc 108.6 Estimated GFR > 60 Fasting Glucose 116 H Calcium 8.1 L Total Bilirubin 0.3 AST 46 H D ALT 41 H Alkaline Phosphatase 119 H D Total Protein 4.8 L Albumin 2.6 L Procedures Date of Service Date of Service: 09/17/21 Progress Note: A&P Assessment and plan (1) Mcleod-vesical fistula: Status: Acute Assessment and Plan: S/P anterior resection, exc of bladder wall fistula stoma functioning well CANDELARIO reported to have a lot of clear output this AM - will keep in place for today ok to start discharge planning stoma care doing well ambulate Fall Risk Details Current Medications: Current Medications Acetaminophen (Acetaminophen 325 Mg Tablet) 650 mg PO Q6H PRN PRN Reason: Pain, Mild (Pain Scale 1-3) Last Admin: 09/17/21 07:30 Dose: 650 mg Documented by: Amlodipine Besylate (Amlodipine Besylate 10 Mg Tablet) 10 mg PO DAILY [facility]; Protocol Last Admin: 09/17/21 07:30 Dose: 10 mg Documented by: Enoxaparin Sodium (Enoxaparin Sodium 40 Mg/0.4 Ml Syringe) 40 mg SUBCUT Q24H [facility] Last Admin: 09/16/21 12:03 Dose: 40 mg Documented by: Hydralazine HCl (Hydralazine Hcl 20 Mg/Ml Vial) 5 mg IVPUSH Q6H PRN; Protocol PRN Reason: BP>180/90 Last Admin: 09/15/21 04:01 Dose: 5 mg Documented by: Dextrose/Sodium Chloride (D51/2ns) 1,000 mls @ 50 mls/hr IVCONT .Q20H [facility] Last Admin: 09/16/21 20:16 Dose: 50 mls/hr Documented by: Ondansetron HCl (Ondansetron Hcl 4 Mg/2 Ml Vial) 4 mg IVPUSH Q8H PRN PRN Reason: Nausea and Vomiting Last Admin: 09/14/21 09:24 Dose: 4 mg Documented by: Sodium Biphosphate/Sodium Phosphate (Sodium Phosphate,[place]-Dibasic 133 Ml Enema) 133 ml [place] ONCE PRN PRN Reason: Consult order Last Admin: 09/04/21 11:20 Dose: 133 ml Documented by: Sodium Biphosphate/Sodium Phosphate (Sodium Phosphate,[place]-Dibasic 133 Ml Enema) 133 ml [place] ONCE PRN PRN Reason: Consult order Last Admin: 09/04/21 12:34 Dose: 133 ml Documented by: Sodium Chloride (0.9 % Sodium Chloride Flush 3 Ml Syringe) 3 ml IVFLUSH QSHIFT [facility] Last Admin: 09/17/21 00:25 Dose: Not Given Documented by: Time Spent With Patient Time: Total time spent is greater than 50% in coordination of care (as documented) at patient's floor/unit and/or counseling patient: Time with patient: 15 - 24 minutes Quality Stroke Does the patient have a stroke diagnosis?: No VTE Prior VTE?: No VTE Risk Level:: Medical - moderate - high VTE Device Contraindication: Treatment Not Indicated VTE Drug Contraindication: N/A - Med Ordered
--- NOTE | 2021-09-17 10:16 | HO.PM.IMPN ---
Subjective Subjective Date of Service: 09/17/21 Interval History: No acute issues overnight. Denies pain (no pain meds overnight) Review of Systems Denies chest pain Denies shortness of breath Denies nausea vomiting diarrhea Physical Exam Vital Signs: Vital Signs: Last Vital Signs Temp 97.4 F 09/17/21 07:47 Pulse 78 09/17/21 07:47 Resp 18 09/17/21 07:47 BP 141/71 H 09/17/21 07:47 Pulse Ox 96 09/17/21 07:47 Oxygen Flow Rate 0.5 09/12/21 16:12 BMI result Body Mass Index 21.2 Const: Other: No acute distress Resp: Other: Clear A/P Cardio: Other: -S4 +S1/S -S3 MRG GI: Other: soft NT/ND NABS x 4 quads Extrem: Other: no edema Objective Data Active Medications Acetaminophen (Acetaminophen 325 Mg Tablet) 650 mg PO Q6H PRN PRN Reason: Pain, Mild (Pain Scale 1-3) Last Admin: 09/17/21 07:30 Dose: 650 mg Documented by: SOUMYA Amlodipine Besylate (Amlodipine Besylate 10 Mg Tablet) 10 mg PO DAILY [facility]; Protocol Last Admin: 09/17/21 07:30 Dose: 10 mg Documented by: SOUMYA Enoxaparin Sodium (Enoxaparin Sodium 40 Mg/0.4 Ml Syringe) 40 mg SUBCUT Q24H [facility] Last Admin: 09/16/21 12:03 Dose: 40 mg Documented by: ATTILA Hydralazine HCl (Hydralazine Hcl 20 Mg/Ml Vial) 5 mg IVPUSH Q6H PRN; Protocol PRN Reason: BP>180/90 Last Admin: 09/15/21 04:01 Dose: 5 mg Documented by: MARIA LUISA Dextrose/Sodium Chloride (D51/2ns) 1,000 mls @ 50 mls/hr IVCONT .Q20H [facility] Last Admin: 09/16/21 20:16 Dose: 50 mls/hr Documented by: WINSTON Ondansetron HCl (Ondansetron Hcl 4 Mg/2 Ml Vial) 4 mg IVPUSH Q8H PRN PRN Reason: Nausea and Vomiting Last Admin: 09/14/21 09:24 Dose: 4 mg Documented by: SEEMA Sodium Biphosphate/Sodium Phosphate (Sodium Phosphate,[place]-Dibasic 133 Ml Enema) 133 ml IN ONCE PRN PRN Reason: Consult order Last Admin: 09/04/21 11:20 Dose: 133 ml Documented by: JASON Sodium Biphosphate/Sodium Phosphate (Sodium Phosphate,[place]-Dibasic 133 Ml Enema) 133 ml IN ONCE PRN PRN Reason: Consult order Last Admin: 09/04/21 12:34 Dose: 133 ml Documented by: JASON Sodium Chloride (0.9 % Sodium Chloride Flush 3 Ml Syringe) 3 ml IVFLUSH QSHIFT [facility] Last Admin: 09/17/21 00:25 Dose: Not Given Documented by: ANTONIA Non-Admin Reason: IV Running Labs CBC & Chem 7: 09/17/21 05:59 09/17/21 05:59 Labs: Laboratory Results - last 24 hr 09/17/21 09/17/21 05:59 05:59 MCV 82.9 MCH 25.5 L MCHC 30.7 L RDW 15.2 Plt Count 463 H MPV 9.7 Immature Gran % (Auto) 0.2 Neut % (Auto) 74.4 H Lymph % (Auto) 11.3 L [place] % (Auto) 10.0 Eos % (Auto) 3.9 Baso % (Auto) 0.2 Lymph # (Auto) 0.9 L [place] # (Auto) 0.8 Eos # (Auto) 0.3 Baso # (Auto) 0.0 Abs Immat Gran (auto) 0.02 Absolute Neuts (auto) 6.2 Absolute Nucleated RBC 0.000 Nucleated RBC % (auto) 0.0 Anion Gap 10 L Estim Creat Clear Calc 108.6 Estimated GFR > 60 Fasting Glucose 116 H Calcium 8.1 L Total Bilirubin 0.3 AST 46 H D ALT 41 H Alkaline Phosphatase 119 H D Total Protein 4.8 L Albumin 2.6 L Assessment and Plan (1) Colon adenocarcinoma: Status: Acute (2) Renal cancer: Status: Acute (3) HTN (hypertension): Status: Acute Plan 71yo M with no chronic conditions, no hx of prior colonoscopy, presenting with hematuria/pneumaturia, found to have 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 Hyponatremia -normalizing - follow renals/divalents 4.HTN -excellent response to amlodipine. -continue same and titrate as indicated VTE ppx LMWH ( will need extended prophylaxis for 4 wk postop Ca) Quality Stroke Does the patient have a stroke diagnosis?: No VTE Prior VTE?: No VTE Risk Level:: Medical - moderate - high VTE Device Contraindication: Treatment Not Indicated VTE Drug Contraindication: N/A - Med Ordered
[2021-09-17 11:41] VITALS: BP 117/61; PULSE 86; RESP 18; TEMP 36; O2SAT 97
[2021-09-17] MEDS: Enoxaparin Sodium 40 MG/0.4 ML SYRINGE SUBCUT (12:19)
--- NOTE | 2021-09-17 13:51 | MHC.CLN ---
F/U PO INTAKE 25-100% X 2 DAYS. DIET=LOW FIBER. ENSURE CLEAR TID TO PROVIDE ADDITIONAL 720 KCALS, 24 G PROTEIN. COLOSTOMY PRESENT. DX COLON CANCER, RENAL CANCER, HTN. MONITOR PO INTAKE CLOSELY.
--- NOTE | 2021-09-17 14:02 | MHC.CM.PN ---
PER MD ROUNDS, PLAN IS DC WEDNESDAY. [facility] IS WILLING TO OFFER SERVICES AT THE RESIDENCE IN [facility]. [facility] IS ASKING THAT ALL VNA ORDERS BE SIGNED BY DR DIEGO ANDTHE PATIENT BE SENT HOME WITH A WEEK'S WORTH OF OSTOMY SUPPLIES. IF PATIENT DC WITH A NEWSOME, THE SURGEON MUST ALSO WRITE ORDERS FOR THIS, INCLUDING WHAT TO DO FOR REPLACEMENT. CASE MANAGEMENT FOLLOWING
[2021-09-17] MEDS: Dextrose 5 % and 0.45 % NaCl 1,000 ML 50 ML IVCONT (14:40)
[2021-09-17 15:42] VITALS: BP 124/64; PULSE 79; RESP 18; TEMP 36.7; O2SAT 97
[2021-09-17 16:00] VITALS: O2SAT 97
--- NOTE | 2021-09-17 16:16 | MHC.CM.PN ---
[facility] CANNOT OFFER IF PATIENT DC TO [facility]. IF HE DOES DC TO [facility], THEY CAN OFFER SERVICES
[2021-09-17 19:27] VITALS: BP 138/61; PULSE 76; RESP 18; TEMP 36.3; O2SAT 99
[2021-09-18] VITALS (8 sets, daily range): BP systolic 123–151; BP diastolic 59–70; PULSE 67–82; RESP 14–18; TEMP 36.4–36.7; O2SAT 97–99
[2021-09-18 06:23] LABS: MANUAL DIFF FLAG NO
[2021-09-18 06:27] LABS: Basophils Percent Auto 0.4 % (0-2); Eosinophils Absolute Auto 0.3 X10*3/uL (0.0-0.4); Eosinophils Percent Auto 3.6 % (0-4); Hematocrit 31.3 % (42.0-52.0); Hemoglobin 9.5 g/dl (14.0-18.0); Imm Gran Abs Auto 0.03 X10*3/uL (0.00-0.03); Imm Gran Pct Auto 0.4 % (0.0-0.4); Lymphocytes Absolute Auto 1.1 X10*3/uL (1.2-4.9); Lymphocytes Percent Auto 14.9 % (20-40); Mean Corpuscular HGB Conc 30.4 g/dl (31.0-36.0); Mean Corpuscular Hemoglobin 25.6 pg (27.0-33.0); Mean Corpuscular Volume 84.4 fL (80.0-98.0); Mean Platelet Volume 9.4 fL (9.4-12.4); Monocytes Absolute Auto 0.7 X10*3/uL (0.1-1.2); Monocytes Percent Auto 9.6 % (2-11); Neutrophils Absolute Auto 5.3 x10*3/uL (2.0-8.3); Neutrophils Percent Auto 71.1 % (45-73); Platelet Count 438 X10*3/uL (160-400); Red Blood Count 3.71 X10*6/uL (4.60-5.80); Red Cell Distribution Width 15.3 % (11.0-16.0); White Blood Count 7.5 X10*3/uL (4.8-10.8)
[2021-09-18 06:48] LABS: Alanine Aminotransferase 40 U/L (0-40); Albumin Level 2.5 g/dL (3.5-5.0); Alkaline Phosphatase 118 U/L (39-117); Anion Gap 10 (12-20); Aspartate Amino Transferase 36 U/L (5-37); Bilirubin Total 0.4 mg/dL (0.0-1.0); Blood Urea Nitrogen 11 mg/dL (9-16); Calcium 8.3 mg/dL (8.4-10.2); Carbon Dioxide 28 mmol/L (22-29); Chloride 100 mmol/L (96-108); Creatinine Clr Calc Pharmacy 108.6; Estimated Glomerular Filt Rate > 60; Glucose Fasting 114 mg/dL (60-99); Potassium 4.3 mmol/L (3.3-5.1); Sodium 134 mmol/L (135-145); Total Protein 4.7 g/dL (6.5-8.0)
[2021-09-18] MEDS: amLODIPine Besylate 10 MG TABLET PO (07:54)
--- NOTE | 2021-09-18 08:15 | PM.PNGS ---
Subjective Subjective Date of Service: 09/18/21 <Michaela Powell PA-C - Last Filed: 09/18/21 08:21> 09/18/21 <Nghia Downing MD - Last Filed: 09/18/21 17:15> Interval history: Feels fairly well overall, denies much pain. Did not even take tylenol last night. Tolerating diet. Ostomy functioning well. <Michaela Powell PA-C - Last Filed: 09/18/21 08:21> Physical Exam Vital Signs: Vital Signs: Last Vital Signs Temp 97.5 F 09/18/21 04:00 Pulse 70 09/18/21 04:00 Resp 18 09/18/21 04:00 BP 132/60 09/18/21 04:00 Pulse Ox 99 09/18/21 04:00 Oxygen Flow Rate 0.5 09/12/21 16:12 BMI result Body Mass Index 21.2 <Michaela Powell PA-C - Last Filed: 09/18/21 08:21> Const: General: comfortable, no acute distress and alert <Michaela Powell PA-C - Last Filed: 09/18/21 08:21> Orientation/consciousness: patient oriented x3 <Michaela Powell PA-C - Last Filed: 09/18/21 08:21> GI: Other: ostomy with soft brown stool in bag; CANDELARIO with high amt of serosanguineous drainage <Michaela Powell PA-C - Last Filed: 09/18/21 08:21> Inspection: No distended and Yes incision (erythema localized to surrounding lynn) <Michaela Powell PA-C - Last Filed: 09/18/21 08:21> Palpation (GI): Soft to palpation, nontender, no guarding and not rigid <CHRISTA Dickson Last Filed: 09/18/21 08:21> Skin: General skin exam: no rashes or lesions noted <CHRISTA Dickson Last Filed: 09/18/21 08:21> Neuro: General: patient oriented x3 <CHRISTA Dickson Last Filed: 09/18/21 08:21> Objective Data Active Medications Acetaminophen (Acetaminophen 325 Mg Tablet) 650 mg PO Q6H PRN PRN Reason: Pain, Mild (Pain Scale 1-3) Last Admin: 09/17/21 07:30 Dose: 650 mg Documented by: SOUMYA Amlodipine Besylate (Amlodipine Besylate 10 Mg Tablet) 10 mg PO DAILY [facility]; Protocol Last Admin: 09/18/21 07:54 Dose: 10 mg Documented by: CHANDA Enoxaparin Sodium (Enoxaparin Sodium 40 Mg/0.4 Ml Syringe) 40 mg SUBCUT Q24H [facility] Last Admin: 09/17/21 12:19 Dose: 40 mg Documented by: SOUMYA Hydralazine HCl (Hydralazine Hcl 20 Mg/Ml Vial) 5 mg IVPUSH Q6H PRN; Protocol PRN Reason: BP>180/90 Last Admin: 09/15/21 04:01 Dose: 5 mg Documented by: MARIA LUISA Ondansetron HCl (Ondansetron Hcl 4 Mg/2 Ml Vial) 4 mg IVPUSH Q8H PRN PRN Reason: Nausea and Vomiting Last Admin: 09/14/21 09:24 Dose: 4 mg Documented by: SEEMA Sodium Biphosphate/Sodium Phosphate (Sodium Phosphate,[place]-Dibasic 133 Ml Enema) 133 ml ND ONCE PRN PRN Reason: Consult order Last Admin: 09/04/21 11:20 Dose: 133 ml Documented by: JASON Sodium Biphosphate/Sodium Phosphate (Sodium Phosphate,[place]-Dibasic 133 Ml Enema) 133 ml ND ONCE PRN PRN Reason: Consult order Last Admin: 09/04/21 12:34 Dose: 133 ml Documented by: JASON Sodium Chloride (0.9 % Sodium Chloride Flush 3 Ml Syringe) [facility] Last Admin: 09/18/21 00:38 Dose: Not Given Documented by: CHEL Non-Admin Reason: Previously Administered <Michaela Powell PA-C - Last Filed: 09/18/21 08:21> Labs CBC & Chem 7: : 09/18/21 06:00 09/18/21 06:00 <Michaela Powell PA-C - Last Filed: 09/18/21 08:21> Labs: Laboratory Results - last 24 hr 09/18/21 09/18/21 06:00 06:00 MCV 84.4 MCH 25.6 L MCHC 30.4 L RDW 15.3 Plt Count 438 H MPV 9.4 Immature Gran % (Auto) 0.4 Neut % (Auto) 71.1 Lymph % (Auto) 14.9 L [place] % (Auto) 9.6 Eos % (Auto) 3.6 Baso % (Auto) 0.4 Lymph # (Auto) 1.1 L [place] # (Auto) 0.7 Eos # (Auto) 0.3 Baso # (Auto) 0.0 Abs Immat Gran (auto) 0.03 Absolute Neuts (auto) 5.3 Absolute Nucleated RBC 0.000 Nucleated RBC % (auto) 0.0 Anion Gap 10 L Estim Creat Clear Calc 108.6 Estimated GFR > 60 Fasting Glucose 114 H Calcium 8.3 L Total Bilirubin 0.4 AST 36 ALT 40 Alkaline Phosphatase 118 H Total Protein 4.7 L Albumin 2.5 L <Michaela Powell PA-C - Last Filed: 09/18/21 08:21> Procedures Date of Service Date of Service: 09/18/21 <Michaela Powell PA-C - Last Filed: 09/18/21 08:21> Progress Note: A&P Assessment and plan (1) Colon adenocarcinoma: Status: Acute <Michaela Powell PA-C - Last Filed: 09/18/21 08:21> Assessment and Plan: feels well good PO intake stoma functioning well CANDELARIO drain - clear output, large amounts - check for urine creatinine, but does not look like urine [place] to leg bag doing well seen and examined independently - agree with VITO Powell <Nghia Downing MD - Last Filed: 09/18/21 17:15> (2) Renal cancer: Status: Acute <Michaela Powell PA-C - Last Filed: 09/18/21 08:21> (3) Pulmonary nodule: Status: Acute <Michaela Powell PA-C - Last Filed: 09/18/21 08:21> (4) [place]-vesical fistula: Status: Acute <Michaela Powell PA-C - Last Filed: 09/18/21 08:21> Plan S/p low anterior resection with excision and repair of colovesical fistula, end colostomy for adenoCA of colon with colovesical fistula Doing well post op. VSS. Abd exam benign- soft, incision clean, CANDELARIO drain having high output- ?serous in nature but will send for urine Cr to r/o bladder leak. Ostomy functioning well. Continue ostomy education. Increase activity. Dispo planning. <Michaela Powell PA-C - Last Filed: 09/18/21 08:21> Fall Risk Details Current Medications: Current Medications Acetaminophen (Acetaminophen 325 Mg Tablet) 650 mg PO Q6H PRN PRN Reason: Pain, Mild (Pain Scale 1-3) Last Admin: 09/17/21 07:30 Dose: 650 mg Documented by: Amlodipine Besylate (Amlodipine Besylate 10 Mg Tablet) 10 mg PO DAILY [facility]; Protocol Last Admin: 09/18/21 07:54 Dose: 10 mg Documented by: Enoxaparin Sodium (Enoxaparin Sodium 40 Mg/0.4 Ml Syringe) 40 mg SUBCUT Q24H [facility] Last Admin: 09/17/21 12:19 Dose: 40 mg Documented by: Hydralazine HCl (Hydralazine Hcl 20 Mg/Ml Vial) 5 mg IVPUSH Q6H PRN; Protocol PRN Reason: BP>180/90 Last Admin: 09/15/21 04:01 Dose: 5 mg Documented by: Ondansetron HCl (Ondansetron Hcl 4 Mg/2 Ml Vial) 4 mg IVPUSH Q8H PRN PRN Reason: Nausea and Vomiting Last Admin: 09/14/21 09:24 Dose: 4 mg Documented by: Sodium Biphosphate/Sodium Phosphate (Sodium Phosphate,[place]-Dibasic 133 Ml Enema) 133 ml ND ONCE PRN PRN Reason: Consult order Last Admin: 09/04/21 11:20 Dose: 133 ml Documented by: Sodium Biphosphate/Sodium Phosphate (Sodium Phosphate,[place]-Dibasic 133 Ml Enema) 133 ml ND ONCE PRN PRN Reason: Consult order Last Admin: 09/04/21 12:34 Dose: 133 ml Documented by: Sodium Chloride (0.9 % Sodium Chloride Flush 3 Ml Syringe) [facility] Last Admin: 09/18/21 00:38 Dose: Not Given Documented by: <Michaela Powell PA-C - Last Filed: 09/18/21 08:21> Time Spent With Patient Time: Total time spent is greater than 50% in coordination of care (as documented) at patient's floor/unit and/or counseling patient: <Michaela Powell PA-C - Last Filed: 09/18/21 08:21> Time with patient: 15 - 24 minutes <Michaela Powell PA-C - Last Filed: 09/18/21 08:21> Quality Stroke Does the patient have a stroke diagnosis?: No <Michaela Powell PA-C - Last Filed: 09/18/21 08:21> VTE Prior VTE?: No <Michaela Powell PA-C - Last Filed: 09/18/21 08:21> VTE Risk Level:: Medical - moderate - high <Michaela Powell PA-C - Last Filed: 09/18/21 08:21> VTE Device Contraindication: Treatment Not Indicated <Michaela Powell PA-C - Last Filed: 09/18/21 08:21> VTE Drug Contraindication: N/A - Med Ordered <Michaela Powell PA-C - Last Filed: 09/18/21 08:21>
--- NOTE | 2021-09-18 11:21 | HO.PM.IMPN ---
Subjective Subjective Date of Service: 09/18/21 Interval History: No acute issues overnight. Denies pain (no pain meds overnight) Review of Systems Denies chest pain Denies shortness of breath Denies nausea vomiting diarrhea Physical Exam Vital Signs: Vital Signs: Last Vital Signs Temp 97.5 F 09/18/21 08:29 Pulse 82 09/18/21 10:50 Resp 18 09/18/21 08:29 BP 123/67 09/18/21 10:50 Pulse Ox 98 09/18/21 10:50 Oxygen Flow Rate 0.5 09/12/21 16:12 BMI result Body Mass Index 21.2 Const: Other: No acute distress Resp: Other: Clear A/P Cardio: Other: -S4 +S1/S -S3 MRG GI: Other: soft NT/ND NABS x 4 quads Extrem: Other: no edema Objective Data Active Medications Acetaminophen (Acetaminophen 325 Mg Tablet) 650 mg PO Q6H PRN PRN Reason: Pain, Mild (Pain Scale 1-3) Last Admin: 09/17/21 07:30 Dose: 650 mg Documented by: SOUMYA Amlodipine Besylate (Amlodipine Besylate 10 Mg Tablet) 10 mg PO DAILY [facility]; Protocol Last Admin: 09/18/21 07:54 Dose: 10 mg Documented by: CHANDA Enoxaparin Sodium (Enoxaparin Sodium 40 Mg/0.4 Ml Syringe) 40 mg SUBCUT Q24H [facility] Last Admin: 09/17/21 12:19 Dose: 40 mg Documented by: SOUMYA Hydralazine HCl (Hydralazine Hcl 20 Mg/Ml Vial) 5 mg IVPUSH Q6H PRN; Protocol PRN Reason: BP>180/90 Last Admin: 09/15/21 04:01 Dose: 5 mg Documented by: MARIA LUISA Ondansetron HCl (Ondansetron Hcl 4 Mg/2 Ml Vial) 4 mg IVPUSH Q8H PRN PRN Reason: Nausea and Vomiting Last Admin: 09/14/21 09:24 Dose: 4 mg Documented by: SEEMA Sodium Biphosphate/Sodium Phosphate (Sodium Phosphate,[place]-Dibasic 133 Ml Enema) 133 ml [place] ONCE PRN PRN Reason: Consult order Last Admin: 09/04/21 11:20 Dose: 133 ml Documented by: JASON Sodium Biphosphate/Sodium Phosphate (Sodium Phosphate,[place]-Dibasic 133 Ml Enema) 133 ml SC ONCE PRN PRN Reason: Consult order Last Admin: 09/04/21 12:34 Dose: 133 ml Documented by: JASON Sodium Chloride (0.9 % Sodium Chloride Flush 3 Ml Syringe) 3 ml IVFLUSH QSHIFT [facility] Last Admin: 09/18/21 00:38 Dose: Not Given Documented by: CHEL Non-Admin Reason: Previously Administered Labs CBC & Chem 7: 09/18/21 06:00 09/18/21 06:00 Labs: Laboratory Results - last 24 hr 09/18/21 09/18/21 06:00 06:00 MCV 84.4 MCH 25.6 L MCHC 30.4 L RDW 15.3 Plt Count 438 H MPV 9.4 Immature Gran % (Auto) 0.4 Neut % (Auto) 71.1 Lymph % (Auto) 14.9 L [place] % (Auto) 9.6 Eos % (Auto) 3.6 Baso % (Auto) 0.4 Lymph # (Auto) 1.1 L [place] # (Auto) 0.7 Eos # (Auto) 0.3 Baso # (Auto) 0.0 Abs Immat Gran (auto) 0.03 Absolute Neuts (auto) 5.3 Absolute Nucleated RBC 0.000 Nucleated RBC % (auto) 0.0 Anion Gap 10 L Estim Creat Clear Calc 108.6 Estimated GFR > 60 Fasting Glucose 114 H Calcium 8.3 L Total Bilirubin 0.4 AST 36 ALT 40 Alkaline Phosphatase 118 H Total Protein 4.7 L Albumin 2.5 L Assessment and Plan (1) Colon adenocarcinoma: Status: Acute (2) Renal cancer: Status: Acute (3) HTN (hypertension): Status: Acute Plan 71yo M with no chronic conditions, no hx of prior colonoscopy, presenting with hematuria/pneumaturia, found to have 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 Hyponatremia -normalizing - follow renals/divalents 4.HTN -excellent response to amlodipine. -continue same and titrate as indicated VTE ppx LMWH ( will need extended prophylaxis for 4 wk postop Ca) Quality Stroke Does the patient have a stroke diagnosis?: No VTE Prior VTE?: No VTE Risk Level:: Medical - moderate - high VTE Device Contraindication: Treatment Not Indicated VTE Drug Contraindication: N/A - Med Ordered
[2021-09-18] MEDS: Enoxaparin Sodium 40 MG/0.4 ML SYRINGE SUBCUT (13:09)
--- NOTE | 2021-09-18 14:12 | MHC.CM.PN ---
Addendum entered by Caro Villafuerte 09/18/21 16:31: REFERRAL SENT TO OTHER AGENCYIES THAT MIGHT COVER JEB CALABRESE TO HI PATIENT ASSESSOR TO FOLLOW UP TOMORROW Original Note: NURSE ASSESSOR NOTE ELECTRONIC MEDICAL RECORD REVIEWED ALONG WITH CASE DISCUSSED WITH STAFF NURSE AND HOSPITALIST . MET WITH PATIENT ANS MEDICARE IMM UPDATED WITH HIM , PATIENT ANTICIPATES 1-2 DAYS FOR DISCHARGE , (HE RAISES CONCERNS THAT HIS BOILER NEEDS TO BE INSATALLED AND THE RECREATIONAL THERAPY TECHNICIAN NEEDS TO COME IN CONCERNS ABOUT BEING HERE FOR SOME TIME AND HAVING FOOD SPOILED AND UNABLE TO GET FOOD , ALSO WITH [place] HE WOULD NOT HAVE ANYONE BE ABLE TO PLOW HIM OUT TO EVEN TAKE A WHEELCHAIR VAN HOME HE DOES NOT REQUIRE A AMBULANCE TRANSFER , ) THESE CONCERNS WERE RAISED TO THE SURGICAL PA and hospitlist, HE CAN STAY AT HIS SISTERS IN [place] BUT WE ARE UNABLE TO OBTAIN VNA SERVICES FOR HIM WITH NEW OSTOMY, J-P DRAIN AND NEWSOME CATH IN PLACE [facility] IS LEARNING THE OSTOMY CARE AND J-P DRAINAGE AND NEWSOME CARE BUT IS UNDERSTANDABLY WORRIED ABOUT BEING D/C TO [place] WITHOUT VNA COVERAGE UNTIL HE GOES BACK TO HIS HOME IN [facility] WHERE HE THEN WILL BE COVERED BY THE HVNA. discharge plan - if he goes to his home in [facility] [place] with the boiler having been installed he would have the hvna for nrusing start (new ostomy, j-p drain and newsome cath ) for reinforcement of teaching of care , medication reconcilation and diagnosis assessment and signs symptom management . if he goes to stay with [place] have no vna availability requested from the surgicalpa if they could write scripts for patient for ostomy supplies so family would be able to obtain them earlier efore snowfall and weekend also asked for nursing to cont to rteach and coument their teaching for ostomy, j-prtatt drain and newsome ,
[2021-09-18] MEDS: 0.9 % Sodium Chloride Flush 3 ML SYRINGE IVFLUSH ×2 (17:11→19:18)
[2021-09-18 19:10] LABS: Creatinine Urine < 5.00 mg/dL
[2021-09-19 03:58] VITALS: BP 151/70; PULSE 79; RESP 16; TEMP 36.4; O2SAT 96
[2021-09-19 06:50] LABS: Alanine Aminotransferase 43 U/L (0-40); Albumin Level 2.6 g/dL (3.5-5.0); Alkaline Phosphatase 128 U/L (39-117); Anion Gap 11 (12-20); Aspartate Amino Transferase 39 U/L (5-37); Bilirubin Total 0.5 mg/dL (0.0-1.0); Blood Urea Nitrogen 11 mg/dL (9-16); Calcium 8.2 mg/dL (8.4-10.2); Carbon Dioxide 26 mmol/L (22-29); Chloride 100 mmol/L (96-108); Creatinine Clr Calc Pharmacy 115.6; Estimated Glomerular Filt Rate > 60; Glucose Fasting 89 mg/dL (60-99); Potassium 4.6 mmol/L (3.3-5.1); Sodium 132 mmol/L (135-145)
[2021-09-19 07:15] VITALS: BP 145/78; PULSE 75; RESP 18; TEMP 36.6; O2SAT 98
[2021-09-19] MEDS: amLODIPine Besylate 10 MG TABLET PO (08:35)
[2021-09-19] MEDS: 0.9 % Sodium Chloride Flush 3 ML SYRINGE IVFLUSH (08:37)
--- NOTE | 2021-09-19 09:37 | P.PNGS_ITS ---
Subjective Subjective Date of Service: 09/23/21 Interval history: feels well today has not been taking any pain medications for several days now good p.o. intake passing flatus via stoma - no stool this morning Physical Exam Vital Signs: Vital Signs: Last Vital Signs Temp 98 F 09/19/21 07:15 Pulse 75 09/19/21 07:15 Resp 18 09/19/21 07:15 BP 145/78 H 09/19/21 07:15 Pulse Ox 98 09/19/21 07:15 Oxygen Flow Rate 0.5 09/12/21 16:12 BMI result Body Mass Index 21.2 Const: General: comfortable and no acute distress Resp: Effort & Inspection: normal respiratory effort Cardio: Rate: regular rate GI: Other: CANDELARIO drain with clear output Inspection: No distended Palpation (GI): Soft to palpation, nontender and no guarding Objective Data Active Medications Acetaminophen (Acetaminophen 325 Mg Tablet) 650 mg PO Q6H PRN PRN Reason: Pain, Mild (Pain Scale 1-3) Last Admin: 09/17/21 07:30 Dose: 650 mg Documented by: SOUMYA Amlodipine Besylate (Amlodipine Besylate 10 Mg Tablet) 10 mg PO DAILY [facility]; Protocol Last Admin: 09/19/21 08:35 Dose: 10 mg Documented by: ROM Enoxaparin Sodium (Enoxaparin Sodium 40 Mg/0.4 Ml Syringe) 40 mg SUBCUT Q24H [facility] Last Admin: 09/18/21 13:09 Dose: 40 mg Documented by: CHANDA Hydralazine HCl (Hydralazine Hcl 20 Mg/Ml Vial) 5 mg IVPUSH Q6H PRN; Protocol PRN Reason: BP>180/90 Last Admin: 09/15/21 04:01 Dose: 5 mg Documented by: MARIA LUISA Ondansetron HCl (Ondansetron Hcl 4 Mg/2 Ml Vial) 4 mg IVPUSH Q8H PRN PRN Reason: Nausea and Vomiting Last Admin: 09/14/21 09:24 Dose: 4 mg Documented by: SEEMA Sodium Biphosphate/Sodium Phosphate (Sodium Phosphate,[place]-Dibasic 133 Ml Enema) 133 ml [place] ONCE PRN PRN Reason: Consult order Last Admin: 09/04/21 11:20 Dose: 133 ml Documented by: JASON Sodium Biphosphate/Sodium Phosphate (Sodium Phosphate,[place]-Dibasic 133 Ml Enema) 133 ml [place] ONCE PRN PRN Reason: Consult order Last Admin: 09/04/21 12:34 Dose: 133 ml Documented by: JASON Sodium Chloride (0.9 % Sodium Chloride Flush 3 Ml Syringe) 3 ml IVFLUSH QSHIFT [facility] Last Admin: 09/19/21 08:37 Dose: 3 ml Documented by: ROM Labs CBC & Chem 7: 09/18/21 06:00 09/19/21 06:07 Labs: Laboratory Results - last 24 hr 09/18/21 09/19/21 12:30 06:07 Anion Gap 11 L Estim Creat Clear Calc 115.6 Estimated GFR > 60 Fasting Glucose 89 Calcium 8.2 L Total Bilirubin 0.5 AST 39 H ALT 43 H Alkaline Phosphatase 128 H Total Protein 5.0 L Albumin 2.6 L Urine Creatinine < 5.00 Procedures Date of Service Date of Service: 09/19/21 Progress Note: A&P Assessment and plan (1) [place]-vesical fistula: Status: Acute Assessment and Plan: status post anterior resection, colostomy, resection of bladder wall clinically looks well fluid creatinine from CANDELARIO low - likely ascites urine output clear [place] to leg bag okay to [place] home if okay with Dr. Clark follow-up in the office Fall Risk Details Current Medications: Current Medications Acetaminophen (Acetaminophen 325 Mg Tablet) 650 mg PO Q6H PRN PRN Reason: Pain, Mild (Pain Scale 1-3) Last Admin: 09/17/21 07:30 Dose: 650 mg Documented by: Amlodipine Besylate (Amlodipine Besylate 10 Mg Tablet) 10 mg PO DAILY [facility]; Protocol Last Admin: 09/19/21 08:35 Dose: 10 mg Documented by: Enoxaparin Sodium (Enoxaparin Sodium 40 Mg/0.4 Ml Syringe) 40 mg SUBCUT Q24H [facility] Last Admin: 09/18/21 13:09 Dose: 40 mg Documented by: Hydralazine HCl (Hydralazine Hcl 20 Mg/Ml Vial) 5 mg IVPUSH Q6H PRN; Protocol PRN Reason: BP>180/90 Last Admin: 09/15/21 04:01 Dose: 5 mg Documented by: Ondansetron HCl (Ondansetron Hcl 4 Mg/2 Ml Vial) 4 mg IVPUSH Q8H PRN PRN Reason: Nausea and Vomiting Last Admin: 09/14/21 09:24 Dose: 4 mg Documented by: Sodium Biphosphate/Sodium Phosphate (Sodium Phosphate,[place]-Dibasic 133 Ml Enema) 133 ml [place] ONCE PRN PRN Reason: Consult order Last Admin: 09/04/21 11:20 Dose: 133 ml Documented by: Sodium Biphosphate/Sodium Phosphate (Sodium Phosphate,[place]-Dibasic 133 Ml Enema) 133 ml [place] ONCE PRN PRN Reason: Consult order Last Admin: 09/04/21 12:34 Dose: 133 ml Documented by: Sodium Chloride (0.9 % Sodium Chloride Flush 3 Ml Syringe) 3 ml IVFLUSH [facility] Last Admin: 09/19/21 08:37 Dose: 3 ml Documented by: Time Spent With Patient Time: Total time spent is greater than 50% in coordination of care (as documented) at patient's floor/unit and/or counseling patient: Time with patient: 15 - 24 minutes Quality Stroke Does the patient have a stroke diagnosis?: No VTE Prior VTE?: No VTE Risk Level:: Medical - moderate - high VTE Device Contraindication: Treatment Not Indicated VTE Drug Contraindication: N/A - Med Ordered
[2021-09-19 10:20] VITALS: BP 145/78; PULSE 75; O2SAT 98
[2021-09-19 11:06] VITALS: BP 152/62; PULSE 78; RESP 18; TEMP 36.4; O2SAT 99
--- NOTE | 2021-09-19 11:54 | MHC.CLN ---
F/U DIET=LOW FIBER. ENSURE CLEAR TID TO PROVIDE ADDITIONAL 720 KCALS, 24 G PROTEIN. INTAKE VARIABLE. APPEARS TO BE TOLERATING DIET. COLOSTOMY PRESENT. DX COLON CANCER, RENAL CANCER, HTN. MONITOR PO INTAKE CLOSELY.
--- NOTE | 2021-09-19 14:08 | PM.DS ---
DS: Providers Provider Date of Service: 09/19/21 Date of admission: 09/02/21 21:39 Date of discharge: 09/19/21 Primary care physician: Unknown Physician Consults: 09/02/21 21:36 Consult to General Surgery Routine Consulting Provider: Nghia Downing Reason for consultation: colon mass Has provider been notified: Yes Consult to Hematology / Oncology Routine Consulting Provider: Sriram Daugherty Reason for consultation: multiple malignancy Has provider been notified: Yes 09/02/21 21:41 Consult to Urology Routine Consulting Provider: Humberto Clark Reason for consultation: hematuria, colovesicular fistula Has provider been notified: No 09/03/21 06:43 Consult to Gastroenterology Routine Consulting Provider: Josefina Rubio Reason for consultation: Hematochezia, colonic mass CB 09/10/21 10:08 Consult to Hematology / Oncology Routine Consulting Provider: [facility] Oncology/Hematology Reason for consultation: Colon cancer, renal cell cancer Has provider been notified: No 09/10/21 10:28 Consult to Hematology / Oncology Routine Consulting Provider: Phoebe Cisneros Reason for consultation: sigmoid adenoCA; planned resection PLUS renal cell CA. ?pulm mets? DS: Diagnosis Discharge Diagnosis (1) [place]-vesical fistula: Status: Acute DS: Summary Hospital Course Hospital Course: 71-year-old male with no significant past medical history who presents to the hospital with complaints of hematuria, as well as frequency.? Patient reports that he has had hematuria of since June, he is currently following with Dr. Clark the urologist? and was to have a CT urogram secondary to the history of hematuria. he reports that today his symptoms worsened, he is also experiencing bright blood per rectum with his bowel movements.? He reports that he has increased frequency of urination, as well as dysuria for the past 2 days.? He? has also been having? unintentional weight loss.? Patient denies any chest pain, no abdominal pain, no nausea or vomiting, no lower extremity edema.? No numbness weakness or tingling.? No headache or change in vision.? On arrival to the ED patient hemodynamically stable with no significant abnormal vitals Labs are significant for ? Hemoglobin of 10.7, hematocrit 32.5 which is in stable since August 30, sodium of 132, UA positive for leukocyte Estrace, WBC, as well as blood. Abdominal pelvic CT shows multiple abnormalities including abnormal thickened sigmoid colon in the area of diverticula with apparent invasion of the bladder wall and associated air in the bladder.? Differential diagnosis would include carcinoma as well as diverticulitis.? The? former is likely.? There appears to be? pulmonary metastasis.? There is a 5.6 cm neoplasm presumably renal cell carcinoma present in the right kidney.? In the lung base there are to spiculated masses? measuring 1 x 1 x 1.4 cm and 1.8 x 1.2 x 1.5 cm likely metastatic. Hospital Course On 09/04/21 patient underwent colonoscopy which demonstrated a exophytic this mass with hard edges in friability 22 cm from anal verge. Biopsies were taken. 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 Continue to recover well from surgery and at the time of discharge was ambulatory and using minimal pain meds. Discussed with Dr. Downing; patient will go home with CANDELARIO drain and Stockton. Will follow up with doctors Chang and Eduardo as scheduled Time Spent with Patient Time attestation: Total time spent providing and/or coordinating discharge services: Discharge coordination time: Greater than 30 minutes Quality: Stroke Does the patient have a stroke diagnosis?: No Physical Exam Vital Signs: Vital Signs: Last Vital Signs Temp 97.5 F 09/19/21 11:06 Pulse 78 09/19/21 11:06 Resp 18 09/19/21 11:06 BP 152/62 H 09/19/21 11:06 Pulse Ox 99 09/19/21 11:06 Oxygen Flow Rate 0.5 09/12/21 16:12 BMI result Body Mass Index 21.2 Const: Other: awake alert oriented x3 no acute distress Resp: Other: clear to auscultation bilaterally no rales rhonchi wh Cardio: Other: no S4; positive S1-S2; no S3 murmurs of gallops GI: Other: soft nontender nondistended. Colostomy with soft brown stool. CANDELARIO abraham Extrem: Other: no edema DS: Data Data Completed and Pending Completed studies during hospitalization [Text1]: Pending at discharge 09/04/21 14:05 Surgical [PTH] Routine 09/08/21 13:29 Cytology [PTH] Routine 09/08/21 14:05 Surgical Path [Surgical] [PTH] Routine 09/11/21 15:15 Surgical [PTH] Routine Labs on day of discharge: Laboratory Results - last 24 hr 09/18/21 09/19/21 12:30 06:07 Sodium 132 L Potassium 4.6 Chloride 100 Carbon Dioxide 26 Anion Gap 11 L BUN 11 Creatinine 0.62 Estim Creat Clear Calc 115.6 Estimated GFR > 60 Fasting Glucose 89 Calcium 8.2 L Total Bilirubin 0.5 AST 39 H ALT 43 H Alkaline Phosphatase 128 H Total Protein 5.0 L Albumin 2.6 L Urine Creatinine < 5.00 Discharge Plan Discharge Patient Disposition: Home Health Service Discharge Diagnosis: Adenocarcinoma of Colon Referrals: Physician,Unknown J [Primary Care Provider] - 1 Week Discharge Medications: New oxycodone-acetaminophen [Percocet] 5-325 mg tablet 1 tab PO Q6H PRN (Reason: pain) Qty: 20 0RF Continued sulfamethoxazole-trimethoprim 800-160 mg tablet 1 tab PO BID 10 Days Qty: 20 0RF dicyclomine 20 mg tablet 20 mg PO QID 30 Days Qty: 120 3RF Discharge Orders: Discharge Order (Routine); Ordered 09/19/21 Ordered By: Royer Lockwood Diet: advance to usual diet Activity on Discharge: As tolerated Stand Alone Forms: Patient Portal Discharge page Care Plan Goals: [facility] for ostomy care assistance with colostomy and drain Health Concerns: follow-up with Dr. Daugherty is in the office; he will schedule appointment with you along with follow-up with Dr. Clark Plan of Treatment: continue Stockton catheter; Dr. Clark to decide when removal. [facility] to teach colostomy care Assessment: as per discharge summary
[2021-09-19] MEDS: Enoxaparin Sodium 40 MG/0.4 ML SYRINGE SUBCUT (14:28)
--- NOTE | 2021-09-19 15:12 | MHC.CM.PN ---
NO OFFERING [facility] SERVICE [facility] IS UNABLE TO SERVICE [place]. PATIENT AND SON (IN ROOM) AWARE OF OBSTACLE MD AND SURGEON ALSO MADE AWARE. PATIENT CANNOT RETURN TO [facility] ANYTIME IN THE NEAR FUTURE. ORIGINAL PLAN FOR BOILER PLACEMENT DID NOT WORK OUT. PATIENT IS AWARE THAT HE CAN CHOOSE TO REMAIN; HOWEVER HE IS WANTING TO RETURN HOME HOME WITH FAMILY. 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
--- NOTE | 2021-09-19 15:19 | MHC.CM.PN ---
PATIENT AND SON WILL CONTACT [facility] (NUMBER FOUND ON BACK OF INSURANCE CARD) TO ASK FOR RN SKILLS
== END 2021-09-19 15:44 | disposition home or self-care (01) | DRG 654 ==
LOC: HO.ED 21:07 → HO.EDOVER 21:56 → HO.S3 09-03 09:54
PROVIDERS: Family Medicine; Internal Medicine; Internal Medicine Gastroenterology; Physician Assistant Surgical; Radiology Diagnostic Radiology; Surgery; Urology; Admitting Provider Internal Medicine; Emergency Provider Emergency Medicine; Visit Provider Hospitalist
PROC: 0DJD8ZZ Inspection of Lower Intestinal Tract, Via Natural or Artificial Opening Endoscopic (ICD-10-PCS; CPT 45330; principal; 2021-09-04 13:20)
PROC: 0TB03ZX Excision of Right Kidney, Percutaneous Approach, Diagnostic (ICD-10-PCS; principal; 2021-09-08 10:00)
PROC: 0DTE0ZZ Resection of Large Intestine, Open Approach (ICD-10-PCS; principal; 2021-09-11 10:30)
DX: N32.1 Vesicointestinal fistula (principal); C18.7 Malignant neoplasm of sigmoid colon; C64.1 Malignant neoplasm of right kidney, except renal pelvis; C78.02 Secondary malignant neoplasm of left lung; C78.01 Secondary malignant neoplasm of right lung; C79.11 Secondary malignant neoplasm of bladder; I10 Essential (primary) hypertension; R31.0 Gross hematuria; R91.8 Other nonspecific abnormal finding of lung field; Z20.822 Contact with and (suspected) exposure to COVID-19; E87.5 Hyperkalemia; Z87.891 Personal history of nicotine dependence; Z79.899 Other long term (current) drug therapy
CPT/HCPCS: 10009; 36415; 50200; 71250; 74177; 77012; 80048; 80053; 81001; 82378; 82607; 82728; 82746; 83540; 83605; 83615; 84153; 85025; 85027; 85610; 85730; 86850; 86900; 86901; 87040; 87086; 87635; 88172; 88173; 88177; 88305; 88309; 88341; 88342; 96361; 96365; 97110; 97116; 97162; 99024; 99285; J0131; J0696; J1100; J1170; J1650; J2250; J2270; J2370; J2405; J2543; J2550; J3010; Q9967; Q9968

== ENCOUNTER → 2021-09-30 14:49 | Outpatient (BNV) | payer OTHER, SELFPAY | PROVIDERS: Visit Provider Internal Medicine | DX: C19 Malignant neoplasm of rectosigmoid junction (principal); C77.2 Secondary and unspecified malignant neoplasm of intra-abdominal lymph nodes; C79.31 Secondary malignant neoplasm of brain; C64.1 Malignant neoplasm of right kidney, except renal pelvis | CPT/HCPCS: 99213; 99214; 99215 ==

== ENCOUNTER → 2021-10-06 11:00 | Outpatient (BNVA) | payer OTHER, SELFPAY | PROVIDERS: Visit Provider Surgery | DX: C18.7 Malignant neoplasm of sigmoid colon (principal); Z48.815 Encounter for surgical aftercare following surgery on the digestive system; Z48.02 Encounter for removal of sutures; Z87.19 Personal history of other diseases of the digestive system; Z79.899 Other long term (current) drug therapy; Z96.0 Presence of urogenital implants | CPT/HCPCS: 99212 ==

== ENCOUNTER → 2021-10-09 07:12 | Outpatient (BNVA) | payer OTHER, SELFPAY | PROVIDERS: Visit Provider Nurse Practitioner | DX: Z13.89 Encounter for screening for other disorder (principal) ==

== ENCOUNTER 2021-10-16 10:37 | Outpatient (REF) | payer OTHER, SELFPAY ==
--- NOTE | ~2021-10-16 | FL_ITS ---
EXAMINATION: XR URETHROCYSTOGRAPHY CLINICAL INFORMATION: Recent colonic surgery with a surgical drain in place and Stockton's catheter in bladder. Colon cancer. COMPARISON: Evaluate for any bladder fistula. TECHNIQUE: Through an existing Stockton's catheter, approximately 200 mL of Cystografin was inserted by gravity into the bladder. After patient experiencing pelvic distention, contrast insertion was stopped and images obtained. The catheter was then released into the bottle by reversing the flow. Post contrast images were not obtained. FINDINGS: On sheet folder images, there is a Amharic drain seen in the pelvis from recent surgical changes. Following opacification of the bladder with Cystografin, there is no extravasation of contrast seen. There is no visualization of any fistula. FLUOROSCOPY TIME: 1.0 minutes DOSE AREA PRODUCT: 10.361 uGy-m2 (microgray-meter squared) FL/FL cystogram IMPRESSION: Unremarkable cystogram with no evidence of contrast extravasation or any evidence of bladder fistula.
== END 2021-10-16 10:38 | disposition home or self-care (01) ==
LOC: HO.XRAY 10:37
PROVIDERS: Visit Provider Urology
DX: C18.9 Malignant neoplasm of colon, unspecified (principal)
CPT/HCPCS: 51600; 74455; Q9958

== ENCOUNTER 2021-10-21 08:56 | Outpatient (REF) | payer OTHER, SELFPAY ==
--- NOTE | ~2021-10-21 | PE_ITS ---
EXAMINATION: Fluorine-18 FDG PET/CT Scan CLINICAL INDICATION: Subsequent treatment management. Colon adenocarcinoma, restaging. PROCEDURE: 57 minutes following the intravenous administration of 16.6 mCi of fluorine 18 FDG, images from the base of the skull to the mid thighs were obtained using a combined PET/CT scanner with CT scan based attenuation correction. No oral contrast was administered. No intravenous contrast was administered. Transverse, coronal, sagittal, and volume reconstruction projections were obtained. The patient's blood glucose as determined by a finger stick, was 76 mg/dl immediately prior to injection. Total CT exam dose-length product 324.74 mGy-cm * These CT images were obtained using dose optimization techniques as appropriate, variously including the following: Automated exposure control * Adjustment of mA and/or kV according to patient size (this includes techniques or standardized protocols for targeted exams where dose is matched to indication/reason for exam; i.e. extremities or head) * Use of iterative reconstruction technique COMPARISON: No previous PET/CT scan is available for comparison. The diagnostic CT scan of the abdomen and pelvis, dated 09/02/2021, is available for comparison. CT scan of the chest dated 09/03/2021 is also available for comparison. FINDINGS: (Slice numbers described in this report are numbered superiorly to inferiorly with slice #1 in the head) NECK AND VISUALIZED HEAD: There is intensely increased FDG activity in the pituitary, SUVmax 20.1, slice 10/311. There is enlargement and bony erosion of the sella turcica. No other foci of abnormal FDG activity are present in the neck or visualized head. All of the other activity appears physiological. THORAX: Multiple FDG avid pulmonary nodules are present. The most intense the most intense of these is predominantly in the superior posterior aspect of the right middle lobe but on the diagnostic CT scan dated 09/03/2021 appears to penetrate the horizontal interlobar fissure. This shows SUVmax 8.1, slice 108/311 and measures 1.7 x 1.5 cm in largest transverse dimensions and approximately 1.5 cm cephalocaudad. In the left lower lobe an FDG avid nodule abutting the interlobar fissure shows SUVmax 4.9, slice 109/311 in measures 1.5 x 1.2 cm in largest transverse dimensions and approximately 2.1 cm cephalocaudad. Additional smaller FDG avid nodules are present medially in the left lower lobe, slice 100/311 posteriorly in the right lower lobe, slice 116/311 and anteriorly in the base of the right middle lobe, slice 128/311. There is no pleural or pericardial fluid, or pneumothorax. There is no mediastinal, supraclavicular, or axillary lymphadenopathy. ABDOMEN AND PELVIS: A left lower quadrant colostomy with mild associated FDG activity is in place and inferior to this there is a drainage tube in place originating in the midline rectal or perirectal region. Medial to the colostomy there is a mildly FDG avid midline lower abdominal surgical incision. A Stockton catheter is also in place. All of these are new since the 09/02/2021 CT scan of the abdomen and pelvis. There is mild FDG activity throughout the gastrointestinal tract with no associated CT findings and likely physiological. The liver, gallbladder, and spleen are unremarkable. The jejunal glands and pancreas are unremarkable. The previously visualized mass in the lower pole of the right kidney is mildly FDG avid, similar to the adjacent renal parenchyma. This mass does not appear significantly changed in size since 09/02/2021, but in the absence of intravenous contrast it is difficult to separate from the adjacent renal parenchyma and cannot be accurately measured on these nondiagnostic CT images. A stable hypodense 2.7 cm medial left upper pole renal cyst is present and this is markedly FDG photopenic. No additional abnormalities in the kidneys are noted. There is no retroperitoneal, mesenteric, pelvic or inguinal lymphadenopathy. MUSCULOSKELETAL: There are no foci of abnormal FDG activity in the osseous structures. There are degenerative changes in the spine. Other than the osseous erosions of the sella turcica previously described, there are no additional suspicious sclerotic or lytic lesions are visualized. VASCULAR: Diffuse vascular calcifications including coronary. PET/PET CT fusion skull to thigh IMPRESSION: 1. Multiple FDG avid pulmonary nodules are most likely metastases. 2. An intensely FDG avid expansile pituitary lesion with erosion of the bony sella turcica is most likely a metastasis. Further characterization of this with MRI pituitary protocol is recommended. 3. A mildly FDG avid right lower pole renal mass is likely malignant. The appearance is nonspecific but most consistent with renal cell carcinoma. This mass was biopsied 09/08/2021, but the final biopsy report is not available. 4. Postsurgical changes are noted in the abdomen and pelvis as described above with a colostomy in the left lower quadrant, a surgical drain in place, and a Stockton catheter in place. 5. Diffuse vascular calcifications including coronary.
== END 2021-10-21 08:57 | disposition home or self-care (01) ==
LOC: HO.PET 08:56
PROVIDERS: Visit Provider Internal Medicine
DX: Z13.89 Encounter for screening for other disorder (principal)

== ENCOUNTER 2021-10-23 11:42 | Day surgery (SDC) | payer OTHER, SELFPAY ==
--- NOTE | ~2021-10-23 | XR_ITS ---
EXAMINATION: XR CHEST CLINICAL INFORMATION: Right pneumothorax status post right lung biopsy. COMPARISON: X-ray done earlier today as well as during the biopsy procedure CT. TECHNIQUE: AP portable view of the chest was obtained. FINDINGS: The right-sided pneumothorax has gotten a little larger than on previous study of 3:20 PM today. The amount of pleural air seems similar to CT imaging after time of biopsy. No mediastinal shift is seen. Heart normal size. No evidence of pulmonary edema. No confluent lung disease identified. The known bilateral lung nodules seen on CT are not well seen on plain film chest x-ray. Patient's oxygen saturation is 99% on room air and patient is not having any pain with breathing or shortness of breath. A requisition for chest x-ray for first thing tomorrow morning was given to the patient as well as instructions if they become short of breath to return to the hospital immediately. XR/XR chest 1V IMPRESSION: Slight increase in size of right pneumothorax without mediastinal shift.
--- NOTE | ~2021-10-23 | CT_ITS ---
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 COMPARISON: PET scan of 10/21/[address] scan of 09/03/2021. TECHNIQUE: CT fluoroscopic guided right lung core biopsy. This CT examination was performed using dose optimization techniques as appropriate, variously including the following: *Automated exposure control *Adjustment of mA and/or kV according to patient size (this includes techniques or standardized protocols for targeted exams where dose is matched to indication/reason for exam; i.e. extremities or head) *Use of iterative reconstruction technique DLP: 436 mGy-cm FINDINGS: Informed consent was obtained from the patient prior to the procedure. During this process, the procedure and potential alternatives were explained, along with the intended outcome and benefits. The risks of the procedure, as well as the risk of not doing the procedure, were discussed. The patient was given the opportunity to ask questions regarding the procedure and appeared competent to make medical decisions. A signed consent form which documents this discussion was placed in the medical record. Using sterile technique and CT fluoroscopic guidance from a posterior approach a 17-gauge guiding needle was directed into the right lower lobe mass. Two 18-gauge core biopsies were obtained with preliminary cytologic result of an adequate specimen. Postprocedure scanning demonstrates a small right pneumothorax. Follow-up chest x-rays to follow. CT/CT biopsy lung RT IMPRESSION: Successful right lung core biopsy. Small right pneumothorax.
--- NOTE | ~2021-10-23 | XR_ITS ---
EXAMINATION: XR CHEST CLINICAL INFORMATION: Status post lung biopsy. Pneumothorax. COMPARISON: CT chest 09/03/2021 TECHNIQUE: Frontal view of the chest was obtained. FINDINGS: The lungs are well-expanded with no visible pneumothorax. There is a right parahilar nodule measuring 1.4 cm. No additional nodules seen. The heart size and pulmonary vascularity is normal. There is mild spondylosis of lower dorsal spine. No lytic or sclerotic process seen. XR/XR chest 1V IMPRESSION: No visible right-sided pneumothorax status post lung biopsy.
[2021-10-23 12:26] VITALS: BMI 19.9
[2021-10-23 12:31] LABS: MANUAL DIFF FLAG NO
[2021-10-23 12:40] LABS: Basophils Percent Auto 0.3 % (0-2); Eosinophils Absolute Auto 0.2 X10*3/uL (0.0-0.4); Eosinophils Percent Auto 2.6 % (0-4); Hematocrit 36.8 % (42.0-52.0); Hemoglobin 11.1 g/dl (14.0-18.0); Imm Gran Abs Auto 0.01 X10*3/uL (0.00-0.03); Imm Gran Pct Auto 0.2 % (0.0-0.4); Lymphocytes Absolute Auto 1.7 X10*3/uL (1.2-4.9); Lymphocytes Percent Auto 27.6 % (20-40); Mean Corpuscular HGB Conc 30.2 g/dl (31.0-36.0); Mean Corpuscular Hemoglobin 25.4 pg (27.0-33.0); Mean Corpuscular Volume 84.2 fL (80.0-98.0); Mean Platelet Volume 10.3 fL (9.4-12.4); Monocytes Absolute Auto 0.7 X10*3/uL (0.1-1.2); Monocytes Percent Auto 10.5 % (2-11); Neutrophils Absolute Auto 3.7 x10*3/uL (2.0-8.3); Neutrophils Percent Auto 58.8 % (45-73); Platelet Count 374 X10*3/uL (160-400); Red Blood Count 4.37 X10*6/uL (4.60-5.80); Red Cell Distribution Width 16.5 % (11.0-16.0); White Blood Count 6.3 X10*3/uL (4.8-10.8)
[2021-10-23 12:47] LABS: Prothrombin Time 11.8 SEC (9.9-13.0)
[2021-10-23 12:50] LABS: Partial Thromboplastin Time 45.6 SEC (24.1-38.0)
[2021-10-23 15:10] VITALS: BP 145/69; PULSE 73; RESP 20; TEMP 36.5; O2SAT 95
[2021-10-23 15:25] VITALS: BP 134/73; PULSE 73; RESP 20; O2SAT 96
[2021-10-23 15:40] VITALS: BP 129/67; PULSE 68; RESP 18; O2SAT 96
[2021-10-23 15:55] VITALS: BP 130/63; PULSE 66; RESP 18; O2SAT 96
[2021-10-23 16:24] VITALS: BP 123/66; PULSE 68; RESP 18; O2SAT 99
[2021-10-23 17:15] VITALS: BP 147/75; PULSE 67; RESP 16; TEMP 36.8; O2SAT 99
== END 2021-10-23 17:15 | disposition home or self-care (01) ==
PROVIDERS: Radiology Diagnostic Radiology; Visit Provider Radiology Diagnostic Radiology
DX: C78.01 Secondary malignant neoplasm of right lung (principal); C19 Malignant neoplasm of rectosigmoid junction; C64.1 Malignant neoplasm of right kidney, except renal pelvis; J93.9 Pneumothorax, unspecified; D64.9 Anemia, unspecified; D75.839 Thrombocytosis, unspecified; Z90.49 Acquired absence of other specified parts of digestive tract; Z93.3 Colostomy status; Z87.891 Personal history of nicotine dependence
CPT/HCPCS: 32408; 36415; 71045; 81210; 81275; 81276; 81311; 81403; 85025; 85610; 85730; 88305; 88333; 88341; 88342; 99152; 99153; J2250; J3010

== ENCOUNTER 2021-10-24 09:07 | Outpatient (REF) | payer OTHER, SELFPAY ==
--- NOTE | ~2021-10-24 | XR_ITS ---
EXAMINATION: XR CHEST CLINICAL INFORMATION: Pneumothorax following biopsy COMPARISON: 10/23/2021 TECHNIQUE: Frontal view of the chest was obtained. FINDINGS: There is small apical pneumothorax to the level of ribs #4-5 on the right There is spiculated lesion in the right lower lobe and 17 mm nodule abating right hilum. XR/XR chest 1V IMPRESSION: Persistent small right apical pneumothorax on the right. Right lower lobe spiculated lesion in the right lower lobe nodule
== END 2021-10-24 09:08 | disposition home or self-care (01) ==
LOC: HO.XRAY 09:07
PROVIDERS: PCP Nurse Practitioner Family; Visit Provider Radiology Diagnostic Radiology
DX: J93.9 Pneumothorax, unspecified (principal); C64.9 Malignant neoplasm of unspecified kidney, except renal pelvis
CPT/HCPCS: 51700; 51798; 71045

== ENCOUNTER → 2021-10-30 08:47 | Outpatient (BNVA) | payer OTHER, SELFPAY | PROVIDERS: PCP Nurse Practitioner Family; Referring Provider Nurse Practitioner Family; Visit Provider Surgery | DX: Z13.89 Encounter for screening for other disorder (principal) ==

== ENCOUNTER 2021-11-11 08:06 | Outpatient (REF) | payer OTHER, SELFPAY ==
--- NOTE | ~2021-11-11 | MR_ITS ---
EXAMINATION: MR BRAIN WITHOUT AND WITH CONTRAST CLINICAL INFORMATION: History of cancer. PET. COMPARISON: Head CT 10/21/2021. TECHNIQUE: Multiplanar, multisequence imaging of the brain was performed before and after the intravenous administration of 7.5 mL of Gadavist. FINDINGS: There is a small focus of acute lacunar infarction within the right caudate head best seen on series 4 image 20/32. No large territorial infarction, hemorrhage, or extra-axial fluid collection is seen. The ventricles are normal in size and configuration without hydrocephalus. A minimal amount of nonspecific periventricular T2/FLAIR hyperintensity is noted. A mild degree of brain parenchymal volume loss is also present. There is a heterogeneously enhancing hypercellular mass centered within the left aspect of the pituitary gland measuring on the order of 1.9 x 2.3 x 2.0 cm. The normal pituitary gland is displaced towards the right as is the infundibulum. The lesion extends in the left cavernous sinus (just lateral to the lateral cavernous carotid line). The anterior wall of the sella appears thinned/dehiscent. There is no definite mass effect on the optic apparatus. The major arterial flow voids are preserved at the skull base. The orbital contents appear normal. MR/MR head/brain wo/w con IMPRESSION: Small focus of acute lacunar infarction within the right caudate head. No large territory infarction, hemorrhage, or evidence of parenchymal metastasis. Hypercellular mass centered in the left aspect of the pituitary gland measuring up to 2.3 cm. This finding is concerning for a primary pituitary lesion or less likely metastasis. Consider evaluation of hormonal serologies. Neurosurgical evaluation would also be helpful. This critical result was discussed with Dr. Daugherty on 11/14/2021 10:48 AM, and it was ascertained that the content and urgency of the report was understood at the time of direct communication.
== END 2021-11-11 08:07 | disposition home or self-care (01) ==
LOC: HO.MRI 08:06
PROVIDERS: PCP Nurse Practitioner Family; Visit Provider Internal Medicine
DX: C79.31 Secondary malignant neoplasm of brain (principal)
CPT/HCPCS: 70553; A9585

== ENCOUNTER 2021-11-14 11:22 | Emergency (ER) | payer OTHER, SELFPAY ==
[2021-11-14 11:28] VITALS: BP 164/86; PULSE 72; RESP 17; TEMP 36.4; O2SAT 98; BMI 20.2
[2021-11-14 12:20] VITALS: BP 176/80; PULSE 66; RESP 14; TEMP 36.5; O2SAT 99
--- NOTE | 2021-11-14 13:59 | ED_ITS ---
HPI - General Adult General Chief complaint: Recheck/Abnormal Lab/Rx Stated complaint: Abnormal MRI of brain Time Seen by Provider: 11/14/21 12:35 Source: patient and other (Dr. Daugherty, expect note) Mode of arrival: ambulatory Limitations: no limitations History of Present Illness HPI narrative: 71-year-old male with a history metastatic rectal cancer and renal cell cancer the the diagnosed 09/02/2021 who was sent to the emergency department for evaluation of possible stroke seen on MRI of the brain done on 11/11/2021. I did get an expect no from the patient's oncologist, Dr. Daugherty. The patient had a PET scan to follow his cancer and there was a spot that lit up in his brain around the pituitary which led to the MRI. The MRI was interpreted today and the radiologist was concerned about acute right caudate head lacunar infarct and called the patient's provider who ordered a scan and the patient was advised to go to the emergency department for evaluation. The patient states that he is asymptomatic and has no headache, new weakness or numbness. Related Data Home Medications Medication Instructions Recorded Confirmed ascorbate calcium (vitamin C) 500 500 mg PO DAILY 10/09/21 10/31/21 mg tablet ferrous sulfate 325 mg (65 mg 325 mg PO DAILY 10/09/21 10/31/21 iron) tablet Previous Rx's Medication Instructions Recorded capecitabine 500 mg tablet 2,000 mg PO BID #112 tab 11/05/21 ondansetron 8 mg disintegrating 8 mg PO Q8H PRN #30 tab 11/05/21 tablet Allergies Allergy/AdvReac Type Severity Reaction Status Date / Time No Known Allergies Allergy Verified 10/30/21 08:58 Review of Systems Review of Systems: Yes all other systems are reviewed and are negative [facility] Past Medical History Medical History [place]-vesical fistula Colonic mass Kidney mass No family history of cancer Surgical History History of surgery S/P colon resection Family History Family History Mother Parkinsons disease Father ESRD (end stage renal disease) Other No family history of cancer Social History Social History Household Members: Spouse Housing: House Do you presently have visiting nurse or other home services: No Alcohol intake: former Patient Tobacco Use Status: Former Tobacco user Years Smoked: quit 1989 e-Cigarette/Vaping Use: Never Used Second Hand Smoke Exposure: No Advance Directives: No Advance Directives Information Provided: Yes service: Yes ( ) Current occupational status: employed and retired Physical Exam ED Vital Signs: Vital Signs - 24 hr 11/14/21 11:28 11/14/21 12:20 Temperature 97.5 F 97.7 F Pulse Rate 72 66 Respiratory Rate 17 14 Blood Pressure 164/86 H 176/80 H Pulse Oximetry 98 99 BMI result Body Mass Index 20.2 Const General: cooperative and no acute distress Orientation/consciousness: oriented to person and oriented to place Limitations: no limitations HENMT Head: Yes normal to inspection, Yes normocephalic and Yes atraumatic Ears: external ears normal General nose exam: Normal external nose present Face and sinus: Yes normal facial exam Mouth: Normal oral and palatal mucosa present Throat: Yes posterior oropharynx normal Eyes General: appearance normal, both eyes and all related structures Pupils: Equal, round and reactive pupils present Neck Neck: Yes normal visual inspection, Yes no lymphadenopathy, Yes trachea midline and Yes supple Chest Chest palpation & inspection: normal inspection of the chest and normal palpation of entire chest wall Resp Effort & Inspection: normal respiratory effort and able to speak in complete sentences Auscultation: clear to auscultation bilaterally Cardio Rate: regular rate Rhythm: regular rhythm Heart sounds: S1 normal heart sound present, S2 normal heart sound present and no murmurs GI Inspection: Yes other (Colostomy) Palpation (GI): Soft to palpation, nontender and no guarding Auscultation: normal bowel sounds General: Yes no CVA tenderness Back/Spine/Pelvis Back: no CVA tenderness Skin General skin exam: no rashes or lesions noted Neuro General: oriented to person and oriented to place Cranial nerves: Yes CN's II-XII intact bilaterally and Yes Equal, round and reactive pupils present Cognition (Neuro): normal cognition Motor exam (neuro): 5/5 motor strength present throughout Extrem General: Yes normal to inspection Psych Appearance: grossly normal Speech and movement: Normal speech and movement present Affect: normal affect Attitude: cooperative Thought process: Normal thought process present Thought content: Normal thought content present Course Course Course Narrative: 71-year-old male who was sent to the emergency department for evaluation of possible stroke which was detected on an MRI done on 11/11/2021 in the MRI was interpreted today. The patient has been asymptomatic. I did discuss this finding with the patient and I do not think that he needs any further treatment. The patient will be discharged home and advised to follow-up with his oncolo gist for further management of his colon and renal cell cancer. Discharge Plan Discharge Clinical Impression: Acute lacunar infarction Patient Disposition: Home, Self-Care Instructions: Stroke (DC) Additional Instructions: Your MRI from 11/11/2021 was concerning for possible small stroke on the right side of your brain (lacunar infarct within the right caudate head). Sometimes you can have a small stroke that we call a lacunar stroke and you have no symptoms. We call the strokes lacunar strokes or mini strokes. Often there is nothing to do for a lacunar stroke. The MRI also is concerning for a pituitary gland mass but this is something that you can discuss with your oncologist and probably does not need to be dealt with at this time. Continue all your medications as prescribed. Follow-up with your doctor in 2 days. Please return to the emergency department if your symptoms get worse or if you develop any symptoms that are concerning to you. Prescriptions: No Action capecitabine 500 mg Tablet 2,000 mg PO BID Qty: 112 6RF Rx Instructions: for 14 days per 21-day cycle; must administer with water 30 minutes after a meal ondansetron 8 mg Tablet,Disintegrating 8 mg PO Q8H PRN (Reason: Nausea) Qty: 30 3RF ascorbate calcium (vitamin C) 500 mg tablet 500 mg PO DAILY 0RF ferrous sulfate 325 mg (65 mg iron) tablet 325 mg PO DAILY 0RF
== END 2021-11-14 14:31 | disposition home or self-care (01) ==
PROVIDERS: Emergency Provider Emergency Medicine Emergency Medical Services; PCP Nurse Practitioner Family
DX: R79.89 Other specified abnormal findings of blood chemistry (principal); Z79.899 Other long term (current) drug therapy; Z87.891 Personal history of nicotine dependence
CPT/HCPCS: 99282; 99284

== ENCOUNTER 2021-11-17 08:02 | Outpatient (REF) | payer OTHER, SELFPAY ==
--- NOTE | ~2021-11-17 | CT_ITS ---
EXAMINATION: CT ABDOMEN AND PELVIS WITHOUT CONTRAST CLINICAL INFORMATION: History of bowel resection COMPARISON: Previous CT of the abdomen and pelvis August 2021 TECHNIQUE: Multidetector volumetric imaging was performed from the superior aspect of the liver through the pubic symphysis. Sagittal and coronal reformatted images were obtained on the technologist's workstation. This CT examination was performed using dose optimization techniques as appropriate, variously including the following: *Automated exposure control *Adjustment of mA and/or kV according to patient size (this includes techniques or standardized protocols for targeted exams where dose is matched to indication/reason for exam; i.e. extremities or head) *Use of iterative reconstruction technique DLP: 361 mGy-cm FINDINGS: LUNG BASES: There is interval increase in size and number of bilateral lower lobe pulmonary nodules compared to August 2021 exam. LIVER, GALLBLADDER, AND BILIARY TREE: The liver is normal in size, shape, and attenuation. No focal hepatic lesion or biliary ductal dilatation is present. The gallbladder is unremarkable with no evidence of radiopaque gallstones, gallbladder wall thickening, or obvious pericholecystic inflammatory changes. PANCREAS: Unremarkable. SPLEEN: Unremarkable. ADRENAL GLANDS: Unremarkable. KIDNEYS AND URETERS: There is a mass in the lower pole of the right kidney. This does not appear appreciably changed from August 2021 exam. There is some surrounding stranding of the perinephric fat. The mass abuts the right psoas muscle. There is a 2.5 cm low-attenuation lesion in the upper pole the left kidney probably representing a cyst. BLADDER: The bladder is normal appearing. Bladder wall thickening and air in the bladder is no longer seen. GASTROINTESTINAL TRACT: There appears to have been interval resection of the sigmoid colon. There is a drainage catheter seen in the pelvis. There is a left lower quadrant colostomy and Crystal pouch. There is stool in the colon suggestive of mild constipation. There are some slightly dilated fluid-filled loops of small bowel seen in the right lower quadrant and pelvis. The appendix is normal. The stomach is normal. ABDOMINAL WALL: No significant hernia is appreciated. LYMPH NODES: Normal. VASCULAR: There is evidence of atherosclerotic disease. PELVIC VISCERA: Unremarkable. OSSEOUS STRUCTURES: There are degenerative changes of the spine. CT/CT abdomen pelvis wo con IMPRESSION: Interval resection of the sigmoid colon with left lower quadrant end colostomy and Crystal pouch in the pelvis. Surgical drainage catheter in the pelvis. Several distended fluid-filled loops of small bowel in the right lower quadrant and pelvis. No evidence of free air or abscess. Stable right renal mass. Interval increase in size and number of bilateral pulmonary nodules compared to August 2021 exam. Atherosclerotic disease. Fleischner guidelines were followed.
== END 2021-11-17 08:03 | disposition home or self-care (01) ==
LOC: HO.CT 08:02
PROVIDERS: Visit Provider Surgery
DX: C20 Malignant neoplasm of rectum (principal); C77.2 Secondary and unspecified malignant neoplasm of intra-abdominal lymph nodes; Z90.49 Acquired absence of other specified parts of digestive tract
CPT/HCPCS: 74176

== ENCOUNTER → 2021-11-20 10:10 | Outpatient (BNVA) | payer OTHER, SELFPAY | PROVIDERS: PCP Nurse Practitioner Family; Visit Provider Surgery | DX: Z13.89 Encounter for screening for other disorder (principal) ==

== ENCOUNTER 2021-12-30 10:28 | Inpatient (IN) | payer OTHER, SELFPAY ==
--- NOTE | ~2021-12-30 | XR_ITS ---
EXAMINATION: XR CHEST CLINICAL INFORMATION: Shortness of breath COMPARISON: None TECHNIQUE: Frontal view of the chest was obtained. FINDINGS: The lungs are well-expanded and clear of acute pneumonic process. The heart size and pulmonary vascularity is normal. There is mild spondylosis throughout dorsal spine. No lytic or sclerotic process seen. XR/XR chest 1V IMPRESSION: Unremarkable chest exam. No change from 01/02/2022
--- NOTE | ~2021-12-30 | CT_ITS ---
EXAMINATION: CT ABDOMEN AND PELVIS WITHOUT CONTRAST CLINICAL INFORMATION: High colostomy output with elevated LFTs COMPARISON: CT abdomen pelvis 11/17/2021 TECHNIQUE: Multidetector volumetric imaging was performed from the superior aspect of the liver through the pubic symphysis. Sagittal and coronal reformatted images were obtained on the technologist's workstation. This CT examination was performed using dose optimization techniques as appropriate, variously including the following: *Automated exposure control *Adjustment of mA and/or kV according to patient size (this includes techniques or standardized protocols for targeted exams where dose is matched to indication/reason for exam; i.e. extremities or head) *Use of iterative reconstruction technique DLP: 400 mGy-cm FINDINGS: LUNG BASES: Again seen are 2 lung masses at the right base. Unfortunately, on the current study, not enough of these lesions is included on this scan to compared with the study from 11/17/2021. No pleural effusions are seen. No new lung nodules are present LIVER, GALLBLADDER, AND BILIARY TREE: The liver is normal in size, shape, and attenuation. No focal hepatic lesion or biliary ductal dilatation is present. There may be some layering of high density in the gallbladder but this could be artifactual. The gallbladder is unremarkable with no evidence of radiopaque gallstones, gallbladder wall thickening, or obvious pericholecystic inflammatory changes. If gallstones are a consideration, would recommend ultrasound. PANCREAS: Unremarkable. SPLEEN: Unremarkable. ADRENAL GLANDS: Unremarkable. KIDNEYS AND URETERS: The kidneys are normal in size, shape, and attenuation. Benign 3.2 cm Bosniak class I cyst upper pole left kidney needs no further imaging or follow-up. There is a heterogeneous solid-appearing mass present at the lower pole of the right kidney currently measuring a maximum of 4.9 x 4.0 cm on coronal images raise previously this measured 5.2 x 4.5 cm, somewhat larger. On sagittal images, maximum dimension had been 5.9 cm, currently 5.1 cm (compare 7:78 with prior 5:120). No hydronephrosis, hydroureter, or calculi seen. No perinephric stranding. BLADDER: Unremarkable. GASTROINTESTINAL TRACT: Again seen are changes of sigmoid resection. A surgical drain is present in the pelvis. A small amount of complex fluid is present in the cul-de-sac along with some air bubbles. Colostomy present left lower quadrant. There is no evidence of bowel obstruction. The appendix is normal. ABDOMINAL WALL: No significant hernia is appreciated. There is a colostomy present in the left lower quadrant LYMPH NODES: No retroperitoneal lymphadenopathy. VASCULAR: Calcific atherosclerotic changes present in the aorta and iliofemoral vessels without aneurysm. PELVIC VISCERA: Prostate and seminal vesicles are unremarkable. OSSEOUS STRUCTURES: Unremarkable. CT/CT abdomen pelvis wo con IMPRESSION: 1. A cause for the patient's colostomy output and elevated LFTs is not found. 2. Lung masses cannot be adequately compared. 3. Right lower pole renal mass appears smaller. 4. Postsurgical changes status post sigmoidectomy with colostomy and surgical drain. Fleischner guidelines were followed.
--- NOTE | ~2021-12-30 | XR_ITS ---
EXAMINATION: XR CHEST CLINICAL INFORMATION: Shortness of breath. COMPARISON: 10/24/2021 chest radiographs. TECHNIQUE: Frontal view of the chest was obtained. FINDINGS: No significant abnormality is noted involving the heart, lungs, mediastinum, bony thorax or soft tissues. XR/XR chest 1V IMPRESSION: No acute cardiopulmonary process. Previously seen right pneumothorax appears resolved.
--- NOTE | ~2021-12-30 | US_ITS ---
EXAMINATION: US ABDOMEN LIMITED CLINICAL INFORMATION: Elevated LFTs. COMPARISON: CT scan of the abdomen and pelvis dated 12/30/2021 and 11/17/2021. TECHNIQUE: Real-time imaging of the right upper quadrant abdominal viscera. FINDINGS: PANCREAS: Visualized portions unremarkable. LIVER: Unremarkable. GALLBLADDER: Minimally distended limiting evaluation. Increased homogeneous echoes within the lumen without significant mural thickening or pericholecystic fluid. COMMON BILE DUCT: Normal in caliber measuring 0.4 cm in diameter. RIGHT KIDNEY: 11.0 cm. Right lower pole solid mass measuring 5.0 x 4.1 x 4.3 cm. Doppler showed mild to moderate associated vascularity. FREE FLUID: None. US/US abdomen limited IMPRESSION: 1. Decompressed gallbladder limiting evaluation. Possible intraluminal sludge without evidence for acute cholecystitis. 2. Known right renal mass. Please refer to previous CT report for more detailed findings.
[2021-12-30 10:40] VITALS: BP 160/91; PULSE 108; RESP 16; TEMP 36.5; O2SAT 99; BMI 19.0
--- NOTE | 2021-12-30 11:14 | ECG_ITS ---
Test Reason : weakness Blood Pressure : / mmHG Vent. Rate : 094 BPM Atrial Rate : 094 BPM P-R Int : 140 ms QRS Dur : 086 ms QT Int : 356 ms P-R-T Axes : 079 038 063 degrees QTc Int : 445 ms Normal sinus rhythm Normal ECG No previous ECGs available Referred By: Hortencia Cooper Electronically Signed By:WILLEM GARCIA
--- NOTE | 2021-12-30 11:15 | ED_ITS ---
HPI - General Adult General Chief complaint: Dyspnea Stated complaint: weakness, uncontrollable bowl movement, overflow Time Seen by Provider: 12/30/21 11:13 Source: patient and family (Daughter) Mode of arrival: ambulatory Limitations: no limitations History of Present Illness HPI narrative: 71-year-old male with no significant past medical history significant for colon cancer patient needed sigmoid resection and colostomy. Patient came in for 3- 4 days of increased shortness of breath with exertion and generalized weakness, patient also noted that he change the colostomy 4-6 times with loose stool normally change it once a day, patient feel dizziness with exertion also. Patient tested positive for COVID 2 days ago his O2 at home is 99-100%. No lower extremities edema, no increased shortness of breath in supine position. Related Data Home Medications Medication Instructions Recorded Confirmed ascorbate calcium (vitamin C) 500 500 mg PO DAILY 10/09/21 12/30/21 mg tablet ferrous sulfate 325 mg (65 mg 325 mg PO DAILY 10/09/21 12/30/21 iron) tablet Previous Rx's Medication Instructions Recorded capecitabine 500 mg tablet 2,000 mg PO BID #112 tab 11/05/21 ondansetron 8 mg disintegrating 8 mg PO Q8H PRN #30 tab 11/05/21 tablet dexamethasone 4 mg tablet 4 mg PO BID #30 tab 11/24/21 Allergies Allergy/AdvReac Type Severity Reaction Status Date / Time No Known Allergies Allergy Verified 12/03/21 14:09 Review of Systems Review of Systems: All other systems are reviewed and are negative Constitutional: Reports as per HPI and Reports no additional constitutional complaints Eyes: Reports as per HPI and Reports no additional eye complaints Reports system reviewed and no additional complaints, except as documented Cardiovascular: Reports as per HPI and Reports no additional cardiovascular complaints Respiratory: Reports as per HPI and Reports no additional respiratory complaints Gastrointestinal: Reports as per HPI and Reports no additional gastrointestinal complaints Genitourinary: Reports no additional female genitourinary complaints Musculoskeletal: Reports no additional musculoskeletal complaints Skin/Breast: Reports system reviewed and no additional complaints, except as docu Psychiatric: Reports no additional psychiatric complaints Endocrine: Reports no additional endocrine complaints Hematologic/Lymphatic: Reports no additional hematologic/lymphatic complaints Allergic/Immunologic: Reports no additional allergic/immunologic complaints Reports system reviewed and no additional complaints, except as documented and Reports Abnormal speech present [facility] Past Medical History Medical History [place]-vesical fistula Colonic mass Kidney mass No family history of cancer Surgical History History of surgery S/P colon resection Family History Family History Mother Parkinsons disease Father ESRD (end stage renal disease) Other No family history of cancer Social History Social History Household Members: Spouse Housing: House Do you presently have visiting nurse or other home services: No Alcohol intake: former Patient Tobacco Use Status: Former Tobacco user Years Smoked: quit 1989 e-Cigarette/Vaping Use: Never Used Second Hand Smoke Exposure: No Advance Directives: No Advance Directives Information Provided: No service: Yes ( ) Current occupational status: employed and retired Physical Exam ED Vital Signs: Vital Signs - 24 hr 12/30/21 10:40 12/30/21 13:33 Temperature 97.7 F 97.7 F Pulse Rate 108 H 87 Respiratory Rate 16 13 Blood Pressure 160/91 H 141/80 H Pulse Oximetry 99 98 BMI result Body Mass Index 19.0 Vital signs have been reviewed as appeared to be correct. Blood pressure elevated. Heart rate elevated. Respiration rate normal. Temperature normal. Oxygen saturation normal. Appearance: Cachectic, Alert. Oriented X3. No acute distress. Head: Normal external exam. Normocephalic. Atraumatic. No Woods signs noted. No raccoon eyes noted Eyes: PERRLA. EOMI. Conjunctiva and sclera normal. Eyelids normal. ENT: TM's Normal. Pharynx normal. Uvula midline. Moist mucous membranes. No trismus noted. No drooling noted. No muffled voice noted. Neck: Normal inspection. Neck supple. FROM. No adenopathy. Thyroid Normal. No meningeal signs. No neck mass noted. CVS: Normal heart rate and rhythm. Heart sound normal. No murmurs noted. Pulses normal throughout. Respiratory: No respiratory distress. Painless inspiration. Breath sounds normal. No wheezes/rales/rhonchi noted. Chest nontender. No accessory muscle usage noted or decreased air movement noted. Abdomen: Soft and nontender colostomy bag full of brownish loose stool, patient also has CANDELARIO drain is in place. should Bowel sounds normal in all 4 quadrants. No distention noted. No organomegaly noted. No visible injury noted. Back: No CVA tenderness. Full range of motion noted. Skin: Skin warm and dry. Normal skin color. Normal skin turgor. No rashes/lesions/lacerations noted. Extremities: No lower extremity edema. Extremities exhibit normal range of motion. Extremities nontender. Neuro: Oriented X 3. Cranial nerve exam: II-XII are grossly intact No motor deficit. No sensory deficit. Reflexes normal. Course Course Course Narrative: Assessment and plan. 71-year-old male with history of colon cancer, colectomy, and colostomy, patient came in with complain of generalized weakness. 1. In dehydration with slight elevation of BUN, patient received 1000 cc of IV fluids. 2. High colostomy output with diarrhea will check for C diff serology. 3. Normal magnesium and potassium patient had asymptomatic nonsustained V-tach while in the ED the case discussed with Dr. Hogue. 4. Elevation of LFTs were checked CT abdomen pelvis. 5. COVID positive with normal O2 sat and chest x-ray. Medical Decision Making Lab Data Lab results reviewed: Yes I reviewed the patient's lab results. Result diagrams: 12/30/21 11:38 12/30/21 12:00 Labs: Lab Results 12/30/21 12/30/21 12/30/21 Range/Units 11:37 11:38 11:38 WBC 6.5 (4.8-10.8) X10*3/uL RBC 5.57 (4.60-5.80) X10*6/uL Hgb 14.9 (14.0-18.0) g/dl Hct 46.6 (42.0-52.0) % MCV 83.7 (80.0-98.0) fL MCH 26.8 L (27.0-33.0) pg MCHC 32.0 (31.0-36.0) g/dl RDW 18.9 H (11.0-16.0) % Plt Count 313 (160-400) X10*3/uL MPV 9.4 (9.4-12.4) fL Immature Gran % (Auto) 0.6 H (0.0-0.4) % Neut % (Auto) 58.9 (45-73) % Lymph % (Auto) 26.3 (20-40) % Nobles % (Auto) 13.5 H (2-11) % Eos % (Auto) 0.2 (0-4) % Baso % (Auto) 0.5 (0-2) % Lymph # (Auto) 1.7 (1.2-4.9) X10*3/uL Nobles # (Auto) 0.9 (0.1-1.2) X10*3/uL Eos # (Auto) 0.0 (0.0-0.4) X10*3/uL Baso # (Auto) 0.0 (0.0-0.2) X10*3/uL Abs Immat Gran (auto) 0.04 H (0.00-0.03) X10*3/uL Absolute Neuts (auto) 3.8 (2.0-8.3) x10*3/uL Absolute Nucleated RBC 0.000 (0.0-0.012) X10*3/uL Nucleated RBC % (auto) 0.0 (0.0-0.2) /100WBC Sodium (135-145) mmol/L Potassium (3.3-5.1) mmol/L Chloride (96-108) mmol/L Carbon Dioxide (22-29) mmol/L Anion Gap (12-20) BUN (9-16) mg/dL Creatinine (0.5-1.4) mg/dL Estim Creat Clear Calc Estimated GFR Random Glucose (60-115) mg/dL Calcium (8.4-10.2) mg/dL Magnesium (1.6-2.6) mg/dL Total Bilirubin (0.0-1.0) mg/dL Direct Bilirubin (0.0-0.5) mg/dL AST (5-37) U/L ALT (0-40) U/L Alkaline Phosphatase (39-117) U/L Troponin I High Sens 16.9 (<3.5-35.0) ng/L B-Natriuretic Peptide (<100) pg/mL Total Protein (6.5-8.0) g/dL Albumin (3.5-5.0) g/dL Lipase (8-78) U/L Influenza Type A (PCR) NEGATIVE (Negative) Influenza Type B (PCR) NEGATIVE (Negative) RSV RNA Qual (PCR) NEGATIVE (Negative) SARS-CoV-2 RNA (RT-PCR) POSITIVE A (Negative) 12/30/21 12/30/21 Range/Units 11:38 12:00 WBC (4.8-10.8) X10*3/uL RBC (4.60-5.80) X10*6/uL Hgb (14.0-18.0) g/dl Hct (42.0-52.0) % MCV (80.0-98.0) fL MCH (27.0-33.0) pg MCHC (31.0-36.0) g/dl RDW (11.0-16.0) % Plt Count (160-400) X10*3/uL MPV (9.4-12.4) fL Immature Gran % (Auto) (0.0-0.4) % Neut % (Auto) (45-73) % Lymph % (Auto) (20-40) % Nobles % (Auto) (2-11) % Eos % (Auto) (0-4) % Baso % (Auto) (0-2) % Lymph # (Auto) (1.2-4.9) X10*3/uL Nobles # (Auto) (0.1-1.2) X10*3/uL Eos # (Auto) (0.0-0.4) X10*3/uL Baso # (Auto) (0.0-0.2) X10*3/uL Abs Immat Gran (auto) (0.00-0.03) X10*3/uL Absolute Neuts (auto) (2.0-8.3) x10*3/uL Absolute Nucleated RBC (0.0-0.012) X10*3/uL Nucleated RBC % (auto) (0.0-0.2) /100WBC Sodium 137 (135-145) mmol/L Potassium 4.6 (3.3-5.1) mmol/L Chloride 103 (96-108) mmol/L Carbon Dioxide 25 (22-29) mmol/L Anion Gap 14 (12-20) BUN 22 H (9-16) mg/dL Creatinine 1.14 (0.5-1.4) mg/dL Estim Creat Clear Calc 56.4 Estimated GFR > 60 Random Glucose 144 H (60-115) mg/dL Calcium 9.1 (8.4-10.2) mg/dL Magnesium 2.1 (1.6-2.6) mg/dL Total Bilirubin 1.1 H (0.0-1.0) mg/dL Direct Bilirubin 0.7 H (0.0-0.5) mg/dL AST 58 H (5-37) U/L ALT 92 H (0-40) U/L Alkaline Phosphatase 171 H (39-117) U/L Troponin I High Sens (<3.5-35.0) ng/L B-Natriuretic Peptide 24 (<100) pg/mL Total Protein 5.0 L (6.5-8.0) g/dL Albumin 3.1 L (3.5-5.0) g/dL Lipase 34 (8-78) U/L Influenza Type A (PCR) (Negative) Influenza Type B (PCR) (Negative) RSV RNA Qual (PCR) (Negative) SARS-CoV-2 RNA (RT-PCR) (Negative) Imaging Data Chest x-ray: Attestation: I personally reviewed and interpreted this imaging study as follows: Radiologist's impression: No acute cardiopulmonary process. Previously seen right pneumothorax appears resolved. Discharge Plan Discharge Clinical Impression: High output ileostomy, COVID-19 virus infection, Nonsustained ventricular tachycardia, Acute dehydration Patient Disposition: Admitted As Inpatient Prescriptions: No Action capecitabine 500 mg Tablet 2,000 mg PO BID Qty: 112 6RF Rx Instructions: for 14 days per 21-day cycle; must administer with water 30 minutes after a meal ondansetron 8 mg Tablet,Disintegrating 8 mg PO Q8H PRN (Reason: Nausea) Qty: 30 3RF dexamethasone 4 mg Tablet 4 mg PO BID Qty: 30 3RF Rx Instructions: for 2 days after chemo ascorbate calcium (vitamin C) 500 mg tablet 500 mg PO DAILY 0RF ferrous sulfate 325 mg (65 mg iron) tablet 325 mg PO DAILY 0RF
[2021-12-30] MEDS: 0.9 % Sodium Chloride 1,000 ML 999 ML IV (11:36)
[2021-12-30 11:44] LABS: MANUAL DIFF FLAG NO
[2021-12-30 11:50] LABS: Basophils Percent Auto 0.5 % (0-2); Eosinophils Percent Auto 0.2 % (0-4); Hematocrit 46.6 % (42.0-52.0); Hemoglobin 14.9 g/dl (14.0-18.0); Imm Gran Abs Auto 0.04 X10*3/uL (0.00-0.03); Imm Gran Pct Auto 0.6 % (0.0-0.4); Lymphocytes Absolute Auto 1.7 X10*3/uL (1.2-4.9); Lymphocytes Percent Auto 26.3 % (20-40); Mean Corpuscular Hemoglobin 26.8 pg (27.0-33.0); Mean Corpuscular Volume 83.7 fL (80.0-98.0); Mean Platelet Volume 9.4 fL (9.4-12.4); Monocytes Absolute Auto 0.9 X10*3/uL (0.1-1.2); Monocytes Percent Auto 13.5 % (2-11); Neutrophils Absolute Auto 3.8 x10*3/uL (2.0-8.3); Neutrophils Percent Auto 58.9 % (45-73); Platelet Count 313 X10*3/uL (160-400); Red Blood Count 5.57 X10*6/uL (4.60-5.80); Red Cell Distribution Width 18.9 % (11.0-16.0); White Blood Count 6.5 X10*3/uL (4.8-10.8)
[2021-12-30 12:06] LABS: B Type Natriuretic Peptide 24 pg/mL (<100); Troponin-I High Sensitivity 16.9 ng/L (<3.5-35.0)
[2021-12-30 12:22] LABS: Alanine Aminotransferase 92 U/L (0-40); Albumin Level 3.1 g/dL (3.5-5.0); Alkaline Phosphatase 171 U/L (39-117); Anion Gap 14 (12-20); Aspartate Amino Transferase 58 U/L (5-37); Bilirubin Direct 0.7 mg/dL (0.0-0.5); Bilirubin Total 1.1 mg/dL (0.0-1.0); Blood Urea Nitrogen 22 mg/dL (9-16); Calcium 9.1 mg/dL (8.4-10.2); Carbon Dioxide 25 mmol/L (22-29); Chloride 103 mmol/L (96-108); Creatinine Clr Calc Pharmacy 56.4; Estimated Glomerular Filt Rate > 60; Glucose Random 144 mg/dL (60-115); Lipase 34 U/L (8-78); Potassium 4.6 mmol/L (3.3-5.1); Sodium 137 mmol/L (135-145)
[2021-12-30 12:22] LABS: Influenza A PCR NEGATIVE (Negative); Influenza B PCR NEGATIVE (Negative); Resp Syncy Virus RNA Qual PCR NEGATIVE (Negative); SARS COV2 PCR INHOUSE POSITIVE (Negative)
--- NOTE | 2021-12-30 12:24 | PHA.MEDREC ---
Pharmacy Consult ? Medication Reconciliation Pharmacy has completed the medication reconciliation. Patient reported that he his currently not taking his chemo Capectibaine and dexamethasone as they were put on hold per Dr. Daugherty while he is having an this acute issue. Jacinda Magaña, BurkeD
[2021-12-30 13:33] VITALS: BP 141/80; PULSE 87; RESP 13; TEMP 36.5; O2SAT 98
[2021-12-30 14:02] LABS: Magnesium 2.1 mg/dL (1.6-2.6)
--- NOTE | 2021-12-30 15:38 | P.HPHOSP_ITS ---
History of Present Illness Date of Service: 12/30/21 Chief Complaint: Increased weakness, high output ostomy 71 years old male with PMH of renal cancer, colon cancer post colon resection and ostomy who presents to the hospital complaining of increase weakness, decreased oral intake and increased output through the colostomy. He reports being tested positive for COVID almost 10 days ago but for the last 4-5 days he has been having more generalized weakness, decreased oral intake and increased output through his colostomy. He is feeling weaker than his baseline and has been and able to ambulate the way he used before. Reports feeling short of breath and dizzy upon ambulation. Denies any fever, chills, abdominal pain, chest pain but reported having some nausea with no vomiting. Noticed decrease urine output. He is on active chemotherapy followed by Dr. Cisneros. His treatment now on hold as she held his last dose on Wednesday. Reported being scheduled to remove abdominal drain that was left since his surgery in August. In the emergency tested positive for COVID and was found to have mild dehydra tion. EKG was within normal but telemetry noticed an episode of NSVT. will be admitted for further evaluation and treatment. Review of Systems Review of Systems: No fever, chills but reports generalized weakness No chest pain, palpitation Reporting dyspnea with exertion but no coughing No abdominal pain, but reported having nausea with increase ostomy output No urinary symptoms No any rash or wounds PMFSH Medical History Assaria-vesical fistula Colonic mass Kidney mass No family history of cancer Family History Mother Parkinsons disease Father ESRD (end stage renal disease) Other No family history of cancer Surgical History History of surgery S/P colon resection Social History Household Members: Spouse Housing: House Do you presently have visiting nurse or other home services: No Alcohol intake: former Patient Tobacco Use Status: Former Tobacco user Years Smoked: quit 1989 e-Cigarette/Vaping Use: Never Used Second Hand Smoke Exposure: No Advance Directives: No Advance Directives Information Provided: No service: Yes ( ) Current occupational status: employed and retired Meds Allergies Allergy/AdvReac Type Severity Reaction Status Date / Time No Known Allergies Allergy Verified 12/03/21 14:09 Active Medications: Current Medications Acetaminophen (Acetaminophen 325 Mg Tablet) 650 mg PO Q6H PRN PRN Reason: Pain, Mild (Pain Scale 1-3) Ascorbic Acid (Ascorbic Acid 500 Mg Tablet) 500 mg PO DAILY [facility] Diphenoxylate HCl/Atropine (Diphenoxylate/Atrop 2.5/0.025 Tablet) 2 tab PO ONCE ONE Stop: 12/30/21 15:33 Enoxaparin Sodium (Enoxaparin Sodium 40 Mg/0.4 Ml Syringe) 40 mg SUBCUT Q24H [facility] Sodium Chloride (Ns) 1,000 mls @ 100 mls/hr IVCONT .Q10H [facility] Stop: 12/31/21 11:44 Loperamide HCl (Loperamide Hcl 2 Mg Capsule) 2 mg PO QID [facility] Loperamide HCl (Loperamide Hcl 2 Mg Capsule) 2 mg PO Q4H PRN PRN Reason: Diarrhea Metoprolol Tartrate (Metoprolol Tartrate 12.5 Mg Halftab) 12.5 mg PO BID [facility]; Protocol Ondansetron HCl (Ondansetron Hcl 4 Mg/2 Ml Vial) 4 mg IVPUSH Q8H PRN PRN Reason: Nausea and Vomiting Pharmacy Consult (Consult Rx Perform Med Rec) 1 each MISCELLANE ONCE PRN PRN Reason: Consult order Sodium Chloride (0.9 % Sodium Chloride Flush 3 Ml Syringe) 3 ml IVFLUSH QSHIFT [facility] Home Medications Medication Instructions Recorded Confirmed Last Taken Type ascorbate calcium (vitamin C) 500 500 mg PO DAILY 10/09/21 12/30/21 Unknown History mg tablet ferrous sulfate 325 mg (65 mg 325 mg PO DAILY 10/09/21 12/30/21 Unknown History iron) tablet Physical Exam Vital Signs and Narrative: Vital Signs: Last Vital Signs Temp 97.7 F 12/30/21 13:33 Pulse 87 12/30/21 13:33 Resp 13 12/30/21 13:33 BP 141/80 H 12/30/21 13:33 Pulse Ox 98 12/30/21 13:33 BMI result Body Mass Index 19.0 Const: Other: Constitutional : Alert, oriented, not in distress blood looks weak Neck : Normal inspection, Supple Cardiovascular : RRR, no JVP, no lower extremity edema Respiratory : fair bilateral air entry, no crackles, wheezes or rhonchi Gastrointestinal: soft, lax, Normal bowel sounds, Non tender, ostomy in place with empty back, left lower drain that has serous fluid Skin : Warm, Dry Neurological : Alert & oriented x3, No focal deficit , CN 2-12 within normal Results Labs CBC and Chem 7: 12/30/21 11:38 12/30/21 12:00 Labs: Laboratory Results - last 24 hr 12/30/21 12/30/21 12/30/21 11:37 11:38 11:38 MCV 83.7 MCH 26.8 L MCHC 32.0 RDW 18.9 H Plt Count 313 MPV 9.4 Immature Gran % (Auto) 0.6 H Neut % (Auto) 58.9 Lymph % (Auto) 26.3 [place] % (Auto) 13.5 H Eos % (Auto) 0.2 Baso % (Auto) 0.5 Lymph # (Auto) 1.7 [place] # (Auto) 0.9 Eos # (Auto) 0.0 Baso # (Auto) 0.0 Abs Immat Gran (auto) 0.04 H Absolute Neuts (auto) 3.8 Absolute Nucleated RBC 0.000 Nucleated RBC % (auto) 0.0 Anion Gap Estim Creat Clear Calc Estimated GFR Random Glucose Calcium Magnesium Total Bilirubin Direct Bilirubin AST ALT Alkaline Phosphatase Troponin I High Sens 16.9 B-Natriuretic Peptide Total Protein Albumin Lipase Influenza Type A (PCR) NEGATIVE Influenza Type B (PCR) NEGATIVE RSV RNA Qual (PCR) NEGATIVE SARS-CoV-2 RNA (RT-PCR) POSITIVE A 12/30/21 12/30/21 11:38 12:00 MCV MCH MCHC RDW Plt Count MPV Immature Gran % (Auto) Neut % (Auto) Lymph % (Auto) [place] % (Auto) Eos % (Auto) Baso % (Auto) Lymph # (Auto) [place] # (Auto) Eos # (Auto) Baso # (Auto) Abs Immat Gran (auto) Absolute Neuts (auto) Absolute Nucleated RBC Nucleated RBC % (auto) Anion Gap 14 Estim Creat Clear Calc 56.4 Estimated GFR > 60 Random Glucose 144 H Calcium 9.1 Magnesium 2.1 Total Bilirubin 1.1 H Direct Bilirubin 0.7 H AST 58 H ALT 92 H Alkaline Phosphatase 171 H Troponin I High Sens B-Natriuretic Peptide 24 Total Protein 5.0 L Albumin 3.1 L Lipase 34 Influenza Type A (PCR) Influenza Type B (PCR) RSV RNA Qual (PCR) SARS-CoV-2 RNA (RT-PCR) Imaging Radiologist's Impressions: Impressions Chest X-Ray 12/30/21 12:17 IMPRESSION: No acute cardiopulmonary process. Previously seen right pneumothorax appears resolved. Assessment and Plan (1) High output ileostomy: Status: Acute (2) COVID-19 virus infection: Status: Acute (3) Nonsustained ventricular tachycardia: Status: Acute (4) Acute dehydration: Status: Acute Plan 71 years old male with PMH of renal cancer, colon cancer post colon resection and ostomy who presents to the hospital complaining of increase weakness, decreased oral intake and increased output through the colostomy. Increased ostomy output Seems to be related to acute COVID-19 infection Advised to increase oral intake Support with gentle hydration Start Imodium around the clock Use Lomotil CT surgery evaluation COVID-19 infection Not hypoxic, hold any active treatment for now NSVT Noted on occasion on telemetry, denies any symptoms Give on telemetry Get cardiology evaluation Start low-dose metoprolol Transaminitis Has elevated liver enzymes at baseline, mildly worse from dehydration To repeat an monitor DVT PPX Lovenox The patient will need 2 overnight hospital stay for treatment of increased osto my output and evaluation for NSVT to prevent possible decompensation into acute kidney injury or arrhythmia. Quality Stroke Does the patient have a stroke diagnosis?: No VTE Prior VTE?: No VTE Risk Level:: Medical - moderate - high VTE Device Contraindication: Treatment Not Indicated VTE Drug Contraindication: N/A - Med Ordered
[2021-12-30 15:47] VITALS: BP 113/75; PULSE 96; RESP 12; TEMP 36.5; O2SAT 100
[2021-12-30] MEDS: Loperamide HCl 2 MG CAPSULE PO ×2 (16:24→21:57)
[2021-12-30] MEDS: Metoprolol Tartrate 12.5 MG HALFTAB PO ×2 (16:24→21:57)
[2021-12-30] MEDS: Diphenoxylate/Atrop 2.5/0.025 TABLET 2 TAB PO (16:25)
[2021-12-30] MEDS: 0.9 % Sodium Chloride Flush 3 ML SYRINGE IVFLUSH (16:28)
[2021-12-30] MEDS: 0.9 % Sodium Chloride 1,000 ML 100 ML IVCONT (16:28)
[2021-12-30 17:24] LABS: CDiff Gene PCR NEGATIVE (Negative)
[2021-12-30] MEDS: Enoxaparin Sodium 40 MG/0.4 ML SYRINGE SUBCUT (18:43)
--- NOTE | 2021-12-30 18:51 | PC.NURSE ---
Ostomy emptied for about 500ml of liquid stool.
--- NOTE | 2021-12-30 19:14 | MHC.CM.PN ---
Addendum entered by Татьяна Marquez 12/30/21 21:55: HCP on file. HCP #1 Lisa Diallo () [phone], HCP #2/daughter Hyacinth Diallo ([phone]). Hyacinth is also P.O.A. Addendum entered by Татьяна Marquez 12/30/21 21:43: Pt awake. +Covid. Vax/boosted Pfizer. Pt tells CM he tested positive for Covid 19 1 1/2 weeks ago at home. Has been asymptomatic. Has UMR, pt is not sure if he has Medicare. IMM reviewed 12/30. Lives with . Both patient and undergoing chemotherapy. Pt sees Dr. Cisneros. Has colostomy. 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 Uses no other services. No [facility]. Unsure if he is vet connected. Thinks he may have vet insurance, but unsure what type. States his daughter handles all of that. D/C plan: Home without services. Family will transport home. CM to follow for d/c needs. Original Note: CM attempted to meet with patient. Pt sleeping. Will try again when awake to discuss discharge planning.
[2021-12-30 19:21] VITALS: BP 116/67; PULSE 81; RESP 14; TEMP 36.4; O2SAT 100
[2021-12-30 20:19] VITALS: BP 118/67; PULSE 81; RESP 17; TEMP 36.4; O2SAT 97
--- NOTE | 2021-12-30 21:48 | PC.NURSE ---
Lopressor given at 16:24. Messaged Dr. Terry who says to give the second dose at 21:00. Patient BP 117/76
[2021-12-30 21:55] VITALS: BP 117/76; PULSE 84; RESP 15; O2SAT 98
[2021-12-30 22:16] LABS: Appearance Urine CLEAR; Color Urine DK YELLOW; Glucose Urine UA NEG (NEG); Leukocyte Esterase Urine NEG (NEG); Nitrite Urine NEG (NEG); Specific Gravity - Urine >= 1.030 (1.005-1.025); UACC Culture Trigger NO; Urine Blood NEG (NEG); Urine Ketones NEG (NEG); Urine Protein 1+ MG/DL (NEG-TRACE)
[2021-12-30 22:29] LABS: Bacteria Urine 1+ /LPF; Mucus Urine 3+ /LPF; Squamous Epithelial Cell Urine 3+ /LPF; WBC Urine 0-2 /HPF (0-4)
[2021-12-30 22:30] LABS: Renal Epithelial Cells Urine 1+ /LPF
[2021-12-30 23:09] VITALS: BMI 19.5
[2021-12-31] VITALS (8 sets, daily range): BP systolic 121–140; BP diastolic 64–78; PULSE 78–97; RESP 15–24; TEMP 36–37.5; O2SAT 97–100; BMI 19.5
[2021-12-31 08:04] LABS: Hematocrit 43.5 % (42.0-52.0); Hemoglobin 13.9 g/dl (14.0-18.0); Mean Corpuscular Volume 84.6 fL (80.0-98.0); Mean Platelet Volume 9.3 fL (9.4-12.4); Platelet Count 331 X10*3/uL (160-400); Red Blood Count 5.14 X10*6/uL (4.60-5.80); Red Cell Distribution Width 18.7 % (11.0-16.0)
[2021-12-31 08:26] LABS: Anion Gap 13 (12-20); Blood Urea Nitrogen 26 mg/dL (9-16); Carbon Dioxide 23 mmol/L (22-29); Chloride 104 mmol/L (96-108); Creatinine Clr Calc Pharmacy 61.7; Estimated Glomerular Filt Rate > 60; Glucose Random 114 mg/dL (60-115); Potassium 4.4 mmol/L (3.3-5.1); Sodium 136 mmol/L (135-145)
[2021-12-31 08:33] LABS: Calcium 8.1 mg/dL (8.4-10.2)
[2021-12-31 10:07] LABS: Troponin-I High Sensitivity 10.6 ng/L (<3.5-35.0)
--- NOTE | 2021-12-31 10:44 | P.CONCA_ITS ---
History of Present Illness History of Present Illness Date of Service: 12/31/21 Chief complaint: increase ostomy output, weakness Narrative: This is a cardiology consultation regarding NSVT. Patient denies any cardiac issues including coronary artery disease or myocardial infarction or c ardiomyopathy or in fact any other cardiac issues in the past. He actually came for complaints of increased weakness, decreased oral intake and increased output through the colostomy. He was also diagnosed with COVID about 10 days ago. The last few days have been having increasing weakness. He also has been feeling short of breath with activity. No clear anginal-type symptoms. No known coron murtaza disease. On telemetry in the ER, he was noted to have a short 5 beat run of NSVT. Hence we have been asked seen. Patient does not recall any other major cardiac concerns in the past. Review of Systems Review of Systems: Yes all other systems are reviewed and are negative Constitutional: Constitutional: Reports as per HPI, Reports fatigue, Reports lethargy, Reports malaise and Reports weakness Eyes: Eyes: Reports as per HPI ENT: Reports as per HPI Cardiovascular: Cardiovascular: Reports as per HPI, Denies acrocyanosis, Denies cool extremities, Denies chest pain, Denies leg edema, Denies lightheadedness, Denies palpitations and Denies dyspnea Respiratory: Respiratory: Reports as per HPI, Reports no additional respiratory complaints and Denies dyspnea Gastrointestinal: Gastrointestinal: Reports as per HPI and Reports no additional gastrointestinal complaints Genitourinary: Genitourinary: Reports no additional male genitourinary complaints and Reports as per HPI Musculoskeletal: Musculoskeletal: Reports no additional musculoskeletal complaints and Reports as per HPI Integumentary/Breasts: Skin/Breast: Reports system reviewed and no additional complaints, except as docu Neurologic: Reports system reviewed and no additional complaints, except as documented, Reports as per HPI and Reports weakness Psychiatric: Psychiatric: Reports no additional psychiatric complaints and Reports as per HPI Endocrine: Endocrine: Reports no additional endocrine complaints, Reports as per HPI, Reports fatigue and Denies palpitations Hematologic/Lymphatic: Hematologic/Lymphatic: Reports no additional hematologic/lymphatic complaints and Reports as per HPI Allergic/Immunologic: Allergic/Immunologic: Reports no additional allergic/immunologic complaints and Reports as per HPI PMFSH Past Medical History Medical History Canalou-vesical fistula Colonic mass Kidney mass No family history of cancer Family History Family History Mother Parkinsons disease Father ESRD (end stage renal disease) Other No family history of cancer Surgical History Surgical History History of surgery S/P colon resection Social History Social History Household Members: Spouse and Children Housing: House Do you presently have visiting nurse or other home services: No Alcohol intake: former Patient Tobacco Use Status: Former Tobacco user Years Smoked: quit 1989 e-Cigarette/Vaping Use: Never Used Second Hand Smoke Exposure: No service: Yes ( ) Current occupational status: employed and retired Meds Allergies Allergy/AdvReac Type Severity Reaction Status Date / Time No Known Allergies Allergy Verified 12/03/21 14:09 Active Medications: Current Medications Acetaminophen (Acetaminophen 325 Mg Tablet) 650 mg PO Q6H PRN PRN Reason: Pain, Mild (Pain Scale 1-3) Ascorbic Acid (Ascorbic Acid 500 Mg Tablet) 500 mg PO DAILY [facility] Enoxaparin Sodium (Enoxaparin Sodium 40 Mg/0.4 Ml Syringe) 40 mg SUBCUT Q24H [facility] Last Admin: 12/30/21 18:43 Dose: 40 mg Sodium Chloride (Ns) 1,000 mls @ 100 mls/hr IVCONT .Q10H [facility] Stop: 12/31/21 11:44 Last Infusion: 12/31/21 03:27 Dose: Infused Loperamide HCl (Loperamide Hcl 2 Mg Capsule) 2 mg PO QID [facility] Last Admin: 12/30/21 21:57 Dose: 2 mg Loperamide HCl (Loperamide Hcl 2 Mg Capsule) 2 mg PO Q4H PRN PRN Reason: Diarrhea Metoprolol Tartrate (Metoprolol Tartrate 12.5 Mg Halftab) 12.5 mg PO BID [facility]; Protocol Last Admin: 12/30/21 21:57 Dose: 12.5 mg Ondansetron HCl (Ondansetron Hcl 4 Mg/2 Ml Vial) 4 mg IVPUSH Q8H PRN PRN Reason: Nausea and Vomiting Pharmacy Consult (Consult Rx Perform Med Rec) 1 each MISCELLANE ONCE PRN PRN Reason: Consult order Sodium Chloride (0.9 % Sodium Chloride Flush 3 Ml Syringe) 3 ml IVFLUSH QSHIFT [facility] Last Admin: 12/31/21 00:02 Dose: Not Given Home Medications Medication Instructions Recorded Confirmed Last Taken Type ascorbate calcium (vitamin C) 500 500 mg PO DAILY 10/09/21 12/30/21 Unknown History mg tablet ferrous sulfate 325 mg (65 mg 325 mg PO DAILY 10/09/21 12/30/21 Unknown History iron) tablet Physical Exam Vital Signs: Vital Signs: Last Vital Signs Temp 96.8 F 12/31/21 07:45 Pulse 82 12/31/21 10:30 Resp 16 12/31/21 07:45 BP 127/69 12/31/21 10:30 Pulse Ox 99 12/31/21 10:30 O2 Del Method 12/31/21 07:45 BMI result Body Mass Index 19.5 Const: General: comfortable and no acute distress Orientation/consciousness: patient oriented x3 HEENT: Other: Unremarkable Head: Yes normal to inspection Neck: Neck: Yes normal visual inspection Chest: Chest palpation & inspection: normal inspection of the chest Resp: Auscultation: clear to auscultation bilaterally Cardio: Palpation: normal PMI Heart sounds: S1 normal heart sound present, S2 normal heart sound present, no gallops, no murmurs and no rubs GI: Palpation (GI): Soft to palpation Back/Spine/Pelvis: Other: unremarkable Skin: General skin exam: no rashes or lesions noted Neuro: General: patient oriented x3 Extrem: General: Yes normal to inspection Psych: Mental Status: mental status grossly normal Objective Labs and Meds Result diagrams: 12/31/21 07:41 12/31/21 07:41 Lab results: Laboratory Results - last 24 hr 12/30/21 12/30/21 12/30/21 11:37 11:38 11:38 WBC 6.5 RBC 5.57 Hgb 14.9 Hct 46.6 MCV 83.7 MCH 26.8 L MCHC 32.0 RDW 18.9 H Plt Count 313 MPV 9.4 Immature Gran % (Auto) 0.6 H Neut % (Auto) 58.9 Lymph % (Auto) 26.3 [place] % (Auto) 13.5 H Eos % (Auto) 0.2 Baso % (Auto) 0.5 Lymph # (Auto) 1.7 [place] # (Auto) 0.9 Eos # (Auto) 0.0 Baso # (Auto) 0.0 Abs Immat Gran (auto) 0.04 H Absolute Neuts (auto) 3.8 Absolute Nucleated RBC 0.000 Nucleated RBC % (auto) 0.0 Sodium Potassium Chloride Carbon Dioxide Anion Gap BUN Creatinine Estim Creat Clear Calc Estimated GFR Random Glucose Calcium Magnesium Total Bilirubin Direct Bilirubin AST ALT Alkaline Phosphatase Troponin I High Sens 16.9 B-Natriuretic Peptide Total Protein Albumin Lipase Urine Color Urine Appearance Urine pH Ur Specific [place] Urine Protein Urine Glucose (UA) Urine Ketones Urine Blood Urine Nitrite Ur Leukocyte Esterase Urine RBC Urine WBC Ur Squamous Epith Cells Ur Renal Epithelial Cell Urine Bacteria Hyaline Casts Urine Mucus C. difficile Tox B Gene Influenza Type A (PCR) NEGATIVE Influenza Type B (PCR) NEGATIVE RSV RNA Qual (PCR) NEGATIVE SARS-CoV-2 RNA (RT-PCR) POSITIVE A 12/30/21 12/30/21 12/30/21 11:38 12:00 16:07 WBC RBC Hgb Hct MCV MCH MCHC RDW Plt Count MPV Immature Gran % (Auto) Neut % (Auto) Lymph % (Auto) [place] % (Auto) Eos % (Auto) Baso % (Auto) Lymph # (Auto) [place] # (Auto) Eos # (Auto) Baso # (Auto) Abs Immat Gran (auto) Absolute Neuts (auto) Absolute Nucleated RBC Nucleated RBC % (auto) Sodium 137 Potassium 4.6 Chloride 103 Carbon Dioxide 25 Anion Gap 14 BUN 22 H Creatinine 1.14 Estim Creat Clear Calc 56.4 Estimated GFR > 60 Random Glucose 144 H Calcium 9.1 Magnesium 2.1 Total Bilirubin 1.1 H Direct Bilirubin 0.7 H AST 58 H ALT 92 H Alkaline Phosphatase 171 H Troponin I High Sens B-Natriuretic Peptide 24 Total Protein 5.0 L Albumin 3.1 L Lipase 34 Urine Color Urine Appearance Urine pH Ur Specific [place] Urine Protein Urine Glucose (UA) Urine Ketones Urine Blood Urine Nitrite Ur Leukocyte Esterase Urine RBC Urine WBC Ur Squamous Epith Cells Ur Renal Epithelial Cell Urine Bacteria Hyaline Casts Urine Mucus C. difficile Tox B Gene NEGATIVE Influenza Type A (PCR) Influenza Type B (PCR) RSV RNA Qual (PCR) SARS-CoV-2 RNA (RT-PCR) 12/30/21 12/31/21 12/31/21 22:04 07:41 07:41 WBC 7.0 RBC 5.14 Hgb 13.9 L Hct 43.5 MCV 84.6 MCH 27.0 MCHC 32.0 RDW 18.7 H Plt Count 331 MPV 9.3 L Immature Gran % (Auto) Neut % (Auto) Lymph % (Auto) [place] % (Auto) Eos % (Auto) Baso % (Auto) Lymph # (Auto) [place] # (Auto) Eos # (Auto) Baso # (Auto) Abs Immat Gran (auto) Absolute Neuts (auto) Absolute Nucleated RBC 0.000 Nucleated RBC % (auto) 0.0 Sodium 136 Potassium 4.4 Chloride 104 Carbon Dioxide 23 Anion Gap 13 BUN 26 H Creatinine 1.07 Estim Creat Clear Calc 61.7 Estimated GFR > 60 Random Glucose 114 Calcium 8.1 L D Magnesium Total Bilirubin Direct Bilirubin AST ALT Alkaline Phosphatase Troponin I High Sens B-Natriuretic Peptide Total Protein Albumin Lipase Urine Color DK YELLOW Urine Appearance CLEAR Urine pH 6.0 Ur Specific [place] >= 1.030 H Urine Protein 1+ H Urine Glucose (UA) NEG Urine Ketones NEG Urine Blood NEG Urine Nitrite NEG Ur Leukocyte Esterase NEG Urine RBC 1-4 Urine WBC 0-2 Ur Squamous Epith Cells 3+ Ur Renal Epithelial Cell 1+ Urine Bacteria 1+ Hyaline Casts 5-9 Urine Mucus 3+ C. difficile Tox B Gene Influenza Type A (PCR) Influenza Type B (PCR) RSV RNA Qual (PCR) SARS-CoV-2 RNA (RT-PCR) 12/31/21 07:41 WBC RBC Hgb Hct MCV MCH MCHC RDW Plt Count MPV Immature Gran % (Auto) Neut % (Auto) Lymph % (Auto) [place] % (Auto) Eos % (Auto) Baso % (Auto) Lymph # (Auto) [place] # (Auto) Eos # (Auto) Baso # (Auto) Abs Immat Gran (auto) Absolute Neuts (auto) Absolute Nucleated RBC Nucleated RBC % (auto) Sodium Potassium Chloride Carbon Dioxide Anion Gap BUN Creatinine Estim Creat Clear Calc Estimated GFR Random Glucose Calcium Magnesium Total Bilirubin Direct Bilirubin AST ALT Alkaline Phosphatase Troponin I High Sens 10.6 B-Natriuretic Peptide Total Protein Albumin Lipase Urine Color Urine Appearance Urine pH Ur Specific [place] Urine Protein Urine Glucose (UA) Urine Ketones Urine Blood Urine Nitrite Ur Leukocyte Esterase Urine RBC Urine WBC Ur Squamous Epith Cells Ur Renal Epithelial Cell Urine Bacteria Hyaline Casts Urine Mucus C. difficile Tox B Gene Influenza Type A (PCR) Influenza Type B (PCR) RSV RNA Qual (PCR) SARS-CoV-2 RNA (RT-PCR) ECG Interpretation: EKG with sinus rhythm at 94/Min; no significant ST-T changes and otherwise unremarkable. Normal NH/QTc. Imaging Radiologist's impression: Impressions Chest X-Ray 12/30/21 12:17 IMPRESSION: No acute cardiopulmonary process. Previously seen right pneumothorax appears resolved. Abdomen/Pelvis CT 12/30/21 14:53 IMPRESSION: 1. A cause for the patient's colostomy output and elevated LFTs is not found. 2. Lung masses cannot be adequately compared. 3. Right lower pole renal mass appears smaller. 4. Postsurgical changes status post sigmoidectomy with colostomy and surgical drain. Fleischner guidelines were followed. Assessment and Plan (1) Nonsustained ventricular tachycardia: Status: Acute (2) COVID-19 virus infection: Status: Acute Plan Cardiac studies reviewed. High sensitivity troponins are 16.9 and 10.6. Cardiac BNP is 24. Potassium 4.4. Magnesium 2.1. Calcium level slightly diminished at 8.1. Chest x-ray report have no acute cardiopulmonary process. Telemetry in the ER with a 5 beat run of monomorphic appearing NSVT. No recurrent episodes. There is no specific management for the NSVT at this time. We can monitor Min telemetry while he is here to look for recurrent episodes. Otherwise, once the COVID issues resolve, we can get an echocardiogram for LV function assessment and to assess for any cardiomyopathy. Subsequently, outpatient stress test can be considered. This was discussed with the patient and he agrees. Discussed with Dr. Terry. Also discussed with the ER physician yesterday. Procedures Date of Service Date of Service: 12/31/21
--- NOTE | 2021-12-31 10:53 | HO.PM.IMPN ---
Subjective Subjective Date of Service: 12/31/21 Interval History: Feels mild improvement and the output but still having many liquid bowel movement denies any pain, fever or chills Reported eating better No other overnight events Review of Systems No fever, chills but reports generalized weakness No chest pain, palpitation Reporting dyspnea with exertion but no coughing No abdominal pain, improved nausea with still high ostomy output No urinary symptoms No any rash or wounds Physical Exam Vital Signs: Vital Signs: Last Vital Signs Temp 96.8 F 12/31/21 07:45 Pulse 82 12/31/21 10:30 Resp 16 12/31/21 07:45 BP 127/69 12/31/21 10:30 Pulse Ox 99 12/31/21 10:30 O2 Del Method 12/31/21 07:45 BMI result Body Mass Index 19.5 Const: Other: Constitutional : Alert, oriented, not in distress blood looks weak Neck : Normal inspection, Supple Cardiovascular : RRR, no JVP, no lower extremity edema Respiratory : fair bilateral air entry, no crackles, wheezes or rhonchi Gastrointestinal: soft, lax, Normal bowel sounds, Non tender, ostomy in place with prone liquid stool in the bag, left lower drain that has small amount of serous fluid Skin : Warm, Dry Neurological : Alert & oriented x3, No focal deficit , CN 2-12 within normal Objective Data Active Medications Acetaminophen (Acetaminophen 325 Mg Tablet) 650 mg PO Q6H PRN PRN Reason: Pain, Mild (Pain Scale 1-3) Ascorbic Acid (Ascorbic Acid 500 Mg Tablet) 500 mg PO DAILY [facility] Enoxaparin Sodium (Enoxaparin Sodium 40 Mg/0.4 Ml Syringe) 40 mg SUBCUT Q24H [facility] Last Admin: 12/30/21 18:43 Dose: 40 mg Documented By: MICHELLE Sodium Chloride (Ns) 1,000 mls @ 100 mls/hr IVCONT .Q10H [facility] Stop: 12/31/21 11:44 Last Admin: 12/31/21 03:27 Dose: Not Given Documented By: DEIRDRE Non-Admin Reason: Still running Loperamide HCl (Loperamide Hcl 2 Mg Capsule) 2 mg PO QID [facility] Last Admin: 12/30/21 21:57 Dose: 2 mg Documented By: SUMANTH Loperamide HCl (Loperamide Hcl 2 Mg Capsule) 2 mg PO Q4H PRN PRN Reason: Diarrhea Metoprolol Tartrate (Metoprolol Tartrate 12.5 Mg Halftab) 12.5 mg PO BID [facility]; Protocol Last Admin: 12/30/21 21:57 Dose: 12.5 mg Documented By: SUMANTH Ondansetron HCl (Ondansetron Hcl 4 Mg/2 Ml Vial) 4 mg IVPUSH Q8H PRN PRN Reason: Nausea and Vomiting Pharmacy Consult (Consult Rx Perform Med Rec) 1 each MISCELLANE ONCE PRN PRN Reason: Consult order Sodium Chloride (0.9 % Sodium Chloride Flush 3 Ml Syringe) 3 ml IVFLUSH QSHIFT [facility] Last Admin: 12/31/21 00:02 Dose: Not Given Documented By: DEIRDRE Non-Admin Reason: IV Running Labs CBC & Chem 7: 12/31/21 07:41 12/31/21 07:41 Labs: Laboratory Results - last 24 hr 12/30/21 12/30/21 12/30/21 11:37 11:38 11:38 MCV 83.7 MCH 26.8 L MCHC 32.0 RDW 18.9 H Plt Count 313 MPV 9.4 Immature Gran % (Auto) 0.6 H Neut % (Auto) 58.9 Lymph % (Auto) 26.3 [place] % (Auto) 13.5 H Eos % (Auto) 0.2 Baso % (Auto) 0.5 Lymph # (Auto) 1.7 [place] # (Auto) 0.9 Eos # (Auto) 0.0 Baso # (Auto) 0.0 Abs Immat Gran (auto) 0.04 H Absolute Neuts (auto) 3.8 Absolute Nucleated RBC 0.000 Nucleated RBC % (auto) 0.0 Anion Gap Estim Creat Clear Calc Estimated GFR Random Glucose Calcium Magnesium Total Bilirubin Direct Bilirubin AST ALT Alkaline Phosphatase Troponin I High Sens 16.9 B-Natriuretic Peptide Total Protein Albumin Lipase Urine Color Urine Appearance Urine pH Ur Specific [place] Urine Protein Urine Glucose (UA) Urine Ketones Urine Blood Urine Nitrite Ur Leukocyte Esterase Urine RBC Urine WBC Ur Squamous Epith Cells Ur Renal Epithelial Cell Urine Bacteria Hyaline Casts Urine Mucus C. difficile Tox B Gene Influenza Type A (PCR) NEGATIVE Influenza Type B (PCR) NEGATIVE RSV RNA Qual (PCR) NEGATIVE SARS-CoV-2 RNA (RT-PCR) POSITIVE A 12/30/21 12/30/21 12/30/21 11:38 12:00 16:07 MCV MCH MCHC RDW Plt Count MPV Immature Gran % (Auto) Neut % (Auto) Lymph % (Auto) [place] % (Auto) Eos % (Auto) Baso % (Auto) Lymph # (Auto) [place] # (Auto) Eos # (Auto) Baso # (Auto) Abs Immat Gran (auto) Absolute Neuts (auto) Absolute Nucleated RBC Nucleated RBC % (auto) Anion Gap 14 Estim Creat Clear Calc 56.4 Estimated GFR > 60 Random Glucose 144 H Calcium 9.1 Magnesium 2.1 Total Bilirubin 1.1 H Direct Bilirubin 0.7 H AST 58 H ALT 92 H Alkaline Phosphatase 171 H Troponin I High Sens B-Natriuretic Peptide 24 Total Protein 5.0 L Albumin 3.1 L Lipase 34 Urine Color Urine Appearance Urine pH Ur Specific [place] Urine Protein Urine Glucose (UA) Urine Ketones Urine Blood Urine Nitrite Ur Leukocyte Esterase Urine RBC Urine WBC Ur Squamous Epith Cells Ur Renal Epithelial Cell Urine Bacteria Hyaline Casts Urine Mucus C. difficile Tox B Gene NEGATIVE Influenza Type A (PCR) Influenza Type B (PCR) RSV RNA Qual (PCR) SARS-CoV-2 RNA (RT-PCR) 12/30/21 12/31/21 12/31/21 22:04 07:41 07:41 MCV 84.6 MCH 27.0 MCHC 32.0 RDW 18.7 H Plt Count 331 MPV 9.3 L Immature Gran % (Auto) Neut % (Auto) Lymph % (Auto) [place] % (Auto) Eos % (Auto) Baso % (Auto) Lymph # (Auto) [place] # (Auto) Eos # (Auto) Baso # (Auto) Abs Immat Gran (auto) Absolute Neuts (auto) Absolute Nucleated RBC 0.000 Nucleated RBC % (auto) 0.0 Anion Gap 13 Estim Creat Clear Calc 61.7 Estimated GFR > 60 Random Glucose 114 Calcium 8.1 L D Magnesium Total Bilirubin Direct Bilirubin AST ALT Alkaline Phosphatase Troponin I High Sens B-Natriuretic Peptide Total Protein Albumin Lipase Urine Color DK YELLOW Urine Appearance CLEAR Urine pH 6.0 Ur Specific [place] >= 1.030 H Urine Protein 1+ H Urine Glucose (UA) NEG Urine Ketones NEG Urine Blood NEG Urine Nitrite NEG Ur Leukocyte Esterase NEG Urine RBC 1-4 Urine WBC 0-2 Ur Squamous Epith Cells 3+ Ur Renal Epithelial Cell 1+ Urine Bacteria 1+ Hyaline Casts 5-9 Urine Mucus 3+ C. difficile Tox B Gene Influenza Type A (PCR) Influenza Type B (PCR) RSV RNA Qual (PCR) SARS-CoV-2 RNA (RT-PCR) 12/31/21 07:41 MCV MCH MCHC RDW Plt Count MPV Immature Gran % (Auto) Neut % (Auto) Lymph % (Auto) [place] % (Auto) Eos % (Auto) Baso % (Auto) Lymph # (Auto) [place] # (Auto) Eos # (Auto) Baso # (Auto) Abs Immat Gran (auto) Absolute Neuts (auto) Absolute Nucleated RBC Nucleated RBC % (auto) Anion Gap Estim Creat Clear Calc Estimated GFR Random Glucose Calcium Magnesium Total Bilirubin Direct Bilirubin AST ALT Alkaline Phosphatase Troponin I High Sens 10.6 B-Natriuretic Peptide Total Protein Albumin Lipase Urine Color Urine Appearance Urine pH Ur Specific [place] Urine Protein Urine Glucose (UA) Urine Ketones Urine Blood Urine Nitrite Ur Leukocyte Esterase Urine RBC Urine WBC Ur Squamous Epith Cells Ur Renal Epithelial Cell Urine Bacteria Hyaline Casts Urine Mucus C. difficile Tox B Gene Influenza Type A (PCR) Influenza Type B (PCR) RSV RNA Qual (PCR) SARS-CoV-2 RNA (RT-PCR) Assessment and Plan (1) High output ileostomy: Status: Acute (2) COVID-19 virus infection: Status: Acute (3) Nonsustained ventricular tachycardia: Status: Acute Plan 71 years old male with PMH of renal cancer, colon cancer post colon resection and ostomy who presents to the hospital complaining of increase weakness, decreased oral intake and increased output through the colostomy. Increased ostomy output Seems to be related to acute COVID-19 infection Advised to increase oral intake Discontinue IVF by the end of the day Continue Imodium around the clock Use Lomotil around the clock for today and monitor affect Pending surgery evaluation COVID-19 infection Not hypoxic, hold any active treatment for now NSVT Noted on occasion on telemetry, denies any symptoms, normal electrolytes One episode recorded only in the emergency, no recurrence overnight Keep on telemetry Pending cardiology evaluation Continue low-dose metoprolol Transaminitis Has elevated liver enzymes at baseline, mildly worse from dehydration To repeat an monitor Pseudo hypocalcemia From low albumin continue to monitor, no treatment needed DVT PPX Lovenox The patient will need 2 overnight hospital stay for treatment of increased ostomy output and evaluation for NSVT to prevent possible decompensation into acute kidney injury or arrhythmia. Quality Stroke Does the patient have a stroke diagnosis?: No VTE Prior VTE?: No VTE Risk Level:: Medical - moderate - high VTE Device Contraindication: Treatment Not Indicated VTE Drug Contraindication: N/A - Med Ordered
[2021-12-31] MEDS: Metoprolol Tartrate 12.5 MG HALFTAB PO ×2 (11:11→20:56)
[2021-12-31] MEDS: Ascorbic Acid 500 MG TABLET PO (11:11)
[2021-12-31] MEDS: 0.9 % Sodium Chloride Flush 3 ML SYRINGE IVFLUSH ×3 (11:14→20:57)
[2021-12-31] MEDS: Loperamide HCl 2 MG CAPSULE PO ×3 (11:14→20:56)
--- NOTE | 2021-12-31 12:01 | P.CDIC_ITS ---
CDI Concurrent Query Documentation Clarification: PHYSICIAN'S DOCUMENTATION REQUEST Date of Query: 12/31/21 1202 Patient Name: Alfredo Diallo Admit Date: 12/30/21 Dear Doctor, A review of the medical record indicates additional documentation may be needed. Please review below and update the documentation accordingly. Clinical Indicators: Documentation in the medical record includes: Risk Factors/Clinical Indicators/Treatments Nutrition Assessment 12/31/21: Patient is moderately malnourished 6% weight loss 30 days 9% weight loss x6 months Patient with increased nutrition risk related to cancer with active chemo, recently put on hold body fat, muscle mass not recorded ASPEN Criteria* Acute Illness Chronic Illness Clinical Characteristic Non-Severe (2 or more criteria present) Severe (2 or more criteria present) Non-Severe (2 or more criteria present) Severe (2 or more criteria present) Energy Intake <75% for >7 days <=50% for >=5 days <75% for >=1 month <=75% for >=1 month Weight Loss 1 week 1 ? 2% >2% N/A N/A 1 month 5% >5% 5% >5% 3 months 7.5 % >7.5% 7.5% >7.5% 6 months N/A N/A 10% >10% 1 year N/A N/A 20% >20% Body Fat Mild Moderate Mild Severe Muscle Mass Mild Moderate Mild Severe Fluid Accumulation Mild Moderate to Severe Mild Severe Reduced [employer] Strength N/A Measurably Reduced N/A Measurably Reduced *[facility] Hospitalist, 2017 Based on the above, which of the following most accurately represents the patient's nutritional status? * Malnutrition (specify if mild, moderate, or severe) * Protein calorie malnutrition (specify if mild, moderate, or severe) * Cachexia without malnutrition * No nutritional deficiency * Other (please specify): * Unable to determine Use of terms such as suspected, likely, concern for, or probable (associated with a specific diagnosis that is being evaluated, monitored, or treated as if it exists) are acceptable and can be coded in the inpatient setting, when documented at the time of discharge. Thank you, Monika Mallory RN Extension: [phone] Please use your independent medical judgment in providing your response. THIS QUERY IS PART OF THE PERMANENT MEDICAL RECORD Provider Response: Moderate Protein-Calorie Malnutrition
[2021-12-31] MEDS: Diphenoxylate/Atrop 2.5/0.025 TABLET 1 TAB PO ×3 (14:18→20:56)
--- NOTE | 2021-12-31 14:50 | P.CONGS_ITS ---
History of Present Illness Consult details Consult date: 12/31/21 Narrative: 71-year-old male who is well known to me for malignant colovesical fistula, admitted because of COVID 19 section, with high output colostomy and weakness. 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 He has been undergoing chemotherapy. He also has concomitant pulmonary metastasis as well as synchronous renal cell cancer He had had been doing well but he says that his was diagnosed to have COVID 19. He tested positive as well about 10 days ago. For the past few days, had been increasingly the getting weak. He said that he has high output from his colostomy. he was therefore brought to the ER yesterday and was admitted for IV hydration. He says that he does feel a little better today compared to yesterday. He was able to tolerate food today as well. He still has his CANDELARIO drain from his surgery last August. I had been unable to remove this in the office as there had been some resistance when this is pulled. I actually have scheduled him for movable of this drain under anesthesia in the operating room with possible laparoscopy to see if there is anything that is catching this inside the abdomen. He denies significant drainage from the CANDELARIO drain. Review of Systems Constitutional: Constitutional: Reports body ache(s), Reports fatigue and Denies fever(s) Cardiovascular: Cardiovascular: Denies chest pain at rest and Reports dyspnea on exertion Respiratory: Respiratory: Denies cough and Reports dyspnea on exertion Gastrointestinal: Gastrointestinal: Denies abdominal pain Genitourinary: Genitourinary: Denies hematuria Musculoskeletal: Musculoskeletal: Reports myalgias Endocrine: Endocrine: Reports fatigue PMFSH Past Medical History Medical History Colonic mass No family history of cancer Family History Family History Mother Parkinsons disease Father ESRD (end stage renal disease) Other No family history of cancer Surgical History Surgical History History of surgery Social History Social History Household Members: Spouse and Children Housing: House Do you presently have visiting nurse or other home services: No Alcohol intake: former Patient Tobacco Use Status: Former Tobacco user Years Smoked: quit 1989 e-Cigarette/Vaping Use: Never Used Second Hand Smoke Exposure: No service: Yes (1969- ) Current occupational status: employed and retired Meds Allergies Allergy/AdvReac Type Severity Reaction Status Date / Time No Known Allergies Allergy Verified 12/03/21 14:09 Active Medications: Current Medications Acetaminophen (Acetaminophen 325 Mg Tablet) 650 mg PO Q6H PRN PRN Reason: Pain, Mild (Pain Scale 1-3) Ascorbic Acid (Ascorbic Acid 500 Mg Tablet) 500 mg PO DAILY [facility] Last Admin: 12/31/21 11:11 Dose: 500 mg Diphenoxylate HCl/Atropine (Diphenoxylate/Atrop 2.5/0.025 Tablet) 1 tab PO QID [facility] Stop: 01/01/22 09:01 Last Admin: 12/31/21 14:18 Dose: 1 tab Enoxaparin Sodium (Enoxaparin Sodium 40 Mg/0.4 Ml Syringe) 40 mg SUBCUT Q24H [facility] Last Admin: 12/30/21 18:43 Dose: 40 mg Loperamide HCl (Loperamide Hcl 2 Mg Capsule) 2 mg PO QID [facility] Last Admin: 12/31/21 14:05 Dose: Not Given Loperamide HCl (Loperamide Hcl 2 Mg Capsule) 2 mg PO Q4H PRN PRN Reason: Diarrhea Metoprolol Tartrate (Metoprolol Tartrate 12.5 Mg Halftab) 12.5 mg PO BID [facility]; Protocol Last Admin: 12/31/21 11:11 Dose: 12.5 mg Ondansetron HCl (Ondansetron Hcl 4 Mg/2 Ml Vial) 4 mg IVPUSH Q8H PRN PRN Reason: Nausea and Vomiting Pharmacy Consult (Consult Rx Perform Med Rec) 1 each MISCELLANE ONCE PRN PRN Reason: Consult order Sodium Chloride (0.9 % Sodium Chloride Flush 3 Ml Syringe) 3 ml IVFLUSH QSHIFT [facility] Last Admin: 12/31/21 11:14 Dose: 3 ml Home Medications Medication Instructions Recorded Confirmed Last Taken Type ascorbate calcium (vitamin C) 500 500 mg PO DAILY 10/09/21 12/30/21 Unknown History mg tablet ferrous sulfate 325 mg (65 mg 325 mg PO DAILY 10/09/21 12/30/21 Unknown History iron) tablet Physical Exam Vital Signs: Vital Signs: Last Vital Signs Temp 97.4 F 12/31/21 11:26 Pulse 97 12/31/21 11:26 Resp 24 H 12/31/21 11:26 BP 128/76 12/31/21 11:26 Pulse Ox 99 12/31/21 11:26 O2 Del Method 12/31/21 11:26 BMI result Body Mass Index 19.5 Const: Other: answers questions well General: comfortable and no acute distress Resp: Auscultation: clear to auscultation bilaterally Cardio: Rate: regular rate GI: Other: colostomy functioning well, CANDELARIO drain seen on the left lower abdomen Palpation (GI): Soft to palpation, not firm, nontender and no guarding Results Labs Result diagrams: 01/03/22 06:15 01/08/22 06:57 Labs: Abnormal lab results 12/30/21 12/31/21 12/31/21 Range/Units 22:04 07:41 07:41 Hgb 13.9 L (14.0-18.0) g/dl RDW 18.7 H (11.0-16.0) % MPV 9.3 L (9.4-12.4) fL BUN 26 H (9-16) mg/dL Calcium 8.1 L D (8.4-10.2) mg/dL Ur Specific Cabins >= 1.030 H (1.005-1.025) Urine Protein 1+ H (NEG-TRACE) MG/DL Short CBC 12/31/21 Range/Units 07:41 WBC 7.0 (4.8-10.8) X10*3/uL Hgb 13.9 L (14.0-18.0) g/dl Hct 43.5 (42.0-52.0) % Plt Count 331 (160-400) X10*3/uL BMP 12/31/21 07:41 Sodium 136 Potassium 4.4 Chloride 104 Carbon Dioxide 23 BUN 26 H Creatinine 1.07 Calcium 8.1 L D Urine 12/30/21 Range/Units 22:04 Urine Color DK YELLOW Urine Appearance CLEAR Urine pH 6.0 (5.0-8.0) Ur Specific Cabins >= 1.030 H (1.005-1.025) Urine Protein 1+ H (NEG-TRACE) MG/DL Urine Glucose (UA) NEG (NEG) MG/DL All other labs normal. Assessment and Plan (1) Arjay-vesical fistula: Status: Acute status post resection of the sigmoid with an end-colostomy and resection of involved bladder as well. He is currently undergoing chemotherapy. He had been admitted because of worsening fatigue, and high-output colostomy. I also had tested positive for COVID 19 He has no acute abdominal issues at this time except for his high output colost arthur. He should be adequately hydrated. He should be tested for C diff. Exam is otherwise benign. I have planned on taking to the OR for removal of the CANDELARIO drain under anesthesia as there has been significant resistance when this is being pulled. I will follow along while he is in the hospital. Procedures Date of Service Date of Service: 01/13/22
[2021-12-31] MEDS: Enoxaparin Sodium 40 MG/0.4 ML SYRINGE SUBCUT (17:58)
[2021-12-31] MEDS: ondansetron HCL 4 MG/2 ML VIAL IVPUSH (21:36)
[2022-01-01] VITALS (8 sets, daily range): BP systolic 99–130; BP diastolic 64–80; PULSE 64–101; RESP 18–20; TEMP 36.4–36.8; O2SAT 96–99
[2022-01-01 07:27] LABS: Anion Gap 13 (12-20); Blood Urea Nitrogen 25 mg/dL (9-16); Calcium 8.1 mg/dL (8.4-10.2); Carbon Dioxide 18 mmol/L (22-29); Chloride 107 mmol/L (96-108); Creatinine Clr Calc Pharmacy 64.8; Estimated Glomerular Filt Rate > 60; Glucose Random 122 mg/dL (60-115); Potassium 4.7 mmol/L (3.3-5.1); Sodium 133 mmol/L (135-145)
[2022-01-01 07:35] LABS: C Reactive Protein 1.33 mg/dL (< or = 0.50)
[2022-01-01 07:37] LABS: Hematocrit 48.6 % (42.0-52.0); Hemoglobin 14.9 g/dl (14.0-18.0); Mean Corpuscular HGB Conc 30.7 g/dl (31.0-36.0); Mean Corpuscular Hemoglobin 27.2 pg (27.0-33.0); Mean Corpuscular Volume 88.7 fL (80.0-98.0); Mean Platelet Volume 9.2 fL (9.4-12.4); Platelet Count 329 X10*3/uL (160-400); Red Blood Count 5.48 X10*6/uL (4.60-5.80); Red Cell Distribution Width 19.9 % (11.0-16.0); White Blood Count 8.3 X10*3/uL (4.8-10.8)
[2022-01-01] MEDS: Ascorbic Acid 500 MG TABLET PO (08:19)
[2022-01-01] MEDS: Metoprolol Tartrate 12.5 MG HALFTAB PO ×2 (08:19→20:26)
[2022-01-01] MEDS: Loperamide HCl 2 MG CAPSULE PO ×4 (08:19→20:25)
[2022-01-01] MEDS: 0.9 % Sodium Chloride Flush 3 ML SYRINGE IVFLUSH ×3 (08:19→20:26)
[2022-01-01] MEDS: Diphenoxylate/Atrop 2.5/0.025 TABLET 1 TAB PO (08:19)
[2022-01-01 08:44] LABS: Lactate Dehydrogenase 376 U/L (118-273)
--- NOTE | 2022-01-01 09:06 | PM.PNGS ---
Subjective Subjective Date of Service: 01/01/22 Interval history: says he feels better while more energy colostomy output less watery, more formed Physical Exam Vital Signs: Vital Signs: Last Vital Signs Temp 98.3 F 01/01/22 08:00 Pulse 90 01/01/22 08:00 Resp 20 01/01/22 08:00 BP 116/67 01/01/22 08:00 Pulse Ox 99 01/01/22 08:00 O2 Del Method 01/01/22 08:00 BMI result Body Mass Index 19.5 Const: Other: frail looking but appears comfortable Resp: Effort & Inspection: normal respiratory effort Cardio: Rate: regular rate GI: Other: colostomy output watery but much thicker consistencies Palpation (GI): Soft to palpation, not firm and no guarding Objective Data Active Medications Acetaminophen (Acetaminophen 325 Mg Tablet) 650 mg PO Q6H PRN PRN Reason: Pain, Mild (Pain Scale 1-3) Ascorbic Acid (Ascorbic Acid 500 Mg Tablet) 500 mg PO DAILY [facility] Last Admin: 01/01/22 08:19 Dose: 500 mg Documented By: SAL Enoxaparin Sodium (Enoxaparin Sodium 40 Mg/0.4 Ml Syringe) 40 mg SUBCUT Q24H [facility] Last Admin: 12/31/21 17:58 Dose: 40 mg Documented By: JACINTO Loperamide HCl (Loperamide Hcl 2 Mg Capsule) 2 mg PO QID [facility] Last Admin: 01/01/22 08:19 Dose: 2 mg Documented By: SAL Loperamide HCl (Loperamide Hcl 2 Mg Capsule) 2 mg PO Q4H PRN PRN Reason: Diarrhea Metoprolol Tartrate (Metoprolol Tartrate 12.5 Mg Halftab) 12.5 mg PO BID [facility]; Protocol Last Admin: 01/01/22 08:19 Dose: 12.5 mg Documented By: SAL Ondansetron HCl (Ondansetron Hcl 4 Mg/2 Ml Vial) 4 mg IVPUSH Q8H PRN PRN Reason: Nausea and Vomiting Last Admin: 12/31/21 21:36 Dose: 4 mg Documented By: DEIRDRE Pharmacy Consult (Consult Rx Perform Med Rec) 1 each MISCELLANE ONCE PRN PRN Reason: Consult order Sodium Chloride (0.9 % Sodium Chloride Flush 3 Ml Syringe) 3 ml IVFLUSH QSHIFT [facility] Last Admin: 01/01/22 08:19 Dose: 3 ml Documented By: SAL Labs CBC & Chem 7: 01/01/22 06:40 01/01/22 06:40 Labs: Laboratory Results - last 24 hr 12/31/21 01/01/22 01/01/22 07:41 06:40 06:40 MCV 88.7 MCH 27.2 MCHC 30.7 L RDW 19.9 H Plt Count 329 MPV 9.2 L Absolute Nucleated RBC 0.000 Nucleated RBC % (auto) 0.0 Anion Gap 13 Estim Creat Clear Calc 64.8 Estimated GFR > 60 Random Glucose 122 H Calcium 8.1 L Lactate Dehydrogenase Troponin I High Sens 10.6 C-Reactive Protein 01/01/22 06:40 MCV MCH MCHC RDW Plt Count MPV Absolute Nucleated RBC Nucleated RBC % (auto) Anion Gap Estim Creat Clear Calc Estimated GFR Random Glucose Calcium Lactate Dehydrogenase 376 H Troponin I High Sens C-Reactive Protein 1.33 H Procedures Date of Service Date of Service: 01/01/22 Progress Note: A&P Assessment and plan (1) Colostomy in place: Status: Acute Assessment and Plan: had high output, clinically dehydrated improving stoma care encourage p.o. intake rest of treatment as per hospitalist service will follow Time Spent With Patient Time: Total time spent is greater than 50% in coordination of care (as documented) at patient's floor/unit and/or counseling patient: Quality Stroke Does the patient have a stroke diagnosis?: No VTE Prior VTE?: No VTE Risk Level:: Medical - moderate - high VTE Device Contraindication: Treatment Not Indicated VTE Drug Contraindication: N/A - Med Ordered
--- NOTE | 2022-01-01 16:06 | HO.PM.IMPN ---
Subjective Subjective Date of Service: 01/01/22 Interval History: seen and who examined this morning Follow-up for increasing output from ostomy; COVID 19 Output seems to be decreasing Patient reports dizziness when standing up denies cough, shortness of breath Review of Systems Review of Systems: No all other systems are reviewed and are negative Constitutional Constitutional: Denies chills and Denies fever(s) Cardiovascular Cardiovascular: Denies chest pain, Denies palpitations and Denies dyspnea Respiratory Respiratory: Denies cough and Denies dyspnea Gastrointestinal Gastrointestinal: Denies abdominal pain Endocrine Endocrine: Denies palpitations Physical Exam Vital Signs: Vital Signs: Last Vital Signs Temp 98.2 F 01/01/22 11:52 Pulse 84 01/01/22 11:52 Resp 20 01/01/22 11:52 BP 99/71 01/01/22 11:52 Pulse Ox 97 01/01/22 11:52 O2 Del Method 01/01/22 11:52 BMI result Body Mass Index 19.5 Const: General: cooperative and comfortable Nutritional Appearance: thin Orientation/consciousness: patient oriented x3 Resp: Effort & Inspection: normal respiratory effort and able to speak in complete sentences Cardio: Rate: regular rate Heart sounds: S1 normal heart sound present and S2 normal heart sound present GI: Other: ostomy with brown output Inspection: No distended Palpation (GI): Soft to palpation Neuro: General: patient oriented x3 Extrem: Other: able to move all 4 extremities spontaneously General: Yes no pedal edema Objective Data Active Medications Acetaminophen (Acetaminophen 325 Mg Tablet) 650 mg PO Q6H PRN PRN Reason: Pain, Mild (Pain Scale 1-3) Ascorbic Acid (Ascorbic Acid 500 Mg Tablet) 500 mg PO DAILY [facility] Last Admin: 01/01/22 08:19 Dose: 500 mg Documented By: SAL Enoxaparin Sodium (Enoxaparin Sodium 40 Mg/0.4 Ml Syringe) 40 mg SUBCUT Q24H [facility] Last Admin: 12/31/21 17:58 Dose: 40 mg Documented By: JACINTO Loperamide HCl (Loperamide Hcl 2 Mg Capsule) 2 mg PO QID [facility] Last Admin: 01/01/22 12:34 Dose: 2 mg Documented By: SAL Loperamide HCl (Loperamide Hcl 2 Mg Capsule) 2 mg PO Q4H PRN PRN Reason: Diarrhea Metoprolol Tartrate (Metoprolol Tartrate 12.5 Mg Halftab) 12.5 mg PO BID [facility]; Protocol Last Admin: 01/01/22 08:19 Dose: 12.5 mg Documented By: SAL Ondansetron HCl (Ondansetron Hcl 4 Mg/2 Ml Vial) 4 mg IVPUSH Q8H PRN PRN Reason: Nausea and Vomiting Last Admin: 12/31/21 21:36 Dose: 4 mg Documented By: DEIRRDE Pharmacy Consult (Consult Rx Perform Med Rec) 1 each MISCELLANE ONCE PRN PRN Reason: Consult order Sodium Chloride (0.9 % Sodium Chloride Flush 3 Ml Syringe) 3 ml IVFLUSH QSHIFT [facility] Last Admin: 01/01/22 08:19 Dose: 3 ml Documented By: SAL Labs CBC & Chem 7: 01/01/22 06:40 01/01/22 06:40 Labs: Laboratory Results - last 24 hr 01/01/22 01/01/22 01/01/22 06:40 06:40 06:40 MCV 88.7 MCH 27.2 MCHC 30.7 L RDW 19.9 H Plt Count 329 MPV 9.2 L Absolute Nucleated RBC 0.000 Nucleated RBC % (auto) 0.0 Anion Gap 13 Estim Creat Clear Calc 64.8 Estimated GFR > 60 Random Glucose 122 H Calcium 8.1 L Lactate Dehydrogenase 376 H C-Reactive Protein 1.33 H Assessment and Plan (1) Colostomy in place: Status: Acute (2) COVID-19 virus infection: Status: Acute Plan 71 years old male with PMH of renal cancer, colon cancer post colon resection and ostomy who presents to the hospital complaining of increase weakness, decreased oral intake and increased output through the colostomy. Increased ostomy output Advised to increase oral intake Discontinue IVF by the end of the day Continue Imodium around the clock seen by surgery COVID-19 infection Not hypoxic, hold any active treatment for now NSVT Noted on occasion on telemetry, denies any symptoms, normal electrolytes One episode recorded only in the emergency, no recurrence overnight Keep on telemetry seen by Cardiology, recommend outpatient echocardiogram and possible outpatient stress test after COVID-19 resolved Continue low-dose metoprolol Transaminitis Has elevated liver enzymes at baseline, mildly worse from dehydration repeat in am Pseudo hypocalcemia From low albumin continue to monitor, no treatment needed DVT PPX Lovenox the patient requires inpatient hospitalization for management of increased ostomy output, dehydration Quality Stroke Does the patient have a stroke diagnosis?: No VTE Prior VTE?: No VTE Risk Level:: Medical - moderate - high VTE Device Contraindication: Treatment Not Indicated VTE Drug Contraindication: N/A - Med Ordered
[2022-01-01] MEDS: Lactated Ringers 1,000 ML 80 ML IVCONT (17:01)
[2022-01-01] MEDS: Enoxaparin Sodium 40 MG/0.4 ML SYRINGE SUBCUT (17:02)
[2022-01-02] VITALS (8 sets, daily range): BP systolic 96–145; BP diastolic 56–80; PULSE 80–103; RESP 14–20; TEMP 36.2–37.7; O2SAT 99–100
[2022-01-02] MEDS: Lactated Ringers 1,000 ML 80 ML IVCONT (05:50)
[2022-01-02 07:30] LABS: Alanine Aminotransferase 136 U/L (0-40); Albumin Level 2.7 g/dL (3.5-5.0); Alkaline Phosphatase 204 U/L (39-117); Anion Gap 17 (12-20); Aspartate Amino Transferase 100 U/L (5-37); Bilirubin Direct 0.4 mg/dL (0.0-0.5); Bilirubin Total 0.9 mg/dL (0.0-1.0); Blood Urea Nitrogen 35 mg/dL (9-16); Calcium 8.2 mg/dL (8.4-10.2); Carbon Dioxide 13 mmol/L (22-29); Chloride 107 mmol/L (96-108); Estimated Glomerular Filt Rate > 60; Glucose Random 145 mg/dL (60-115); Potassium 4.6 mmol/L (3.3-5.1); Sodium 132 mmol/L (135-145); Total Protein 4.8 g/dL (6.5-8.0)
[2022-01-02] MEDS: 0.9 % Sodium Chloride Flush 3 ML SYRINGE IVFLUSH ×2 (07:44→20:48)
[2022-01-02] MEDS: Metoprolol Tartrate 12.5 MG HALFTAB PO ×2 (07:44→20:48)
[2022-01-02] MEDS: Ascorbic Acid 500 MG TABLET PO (07:45)
[2022-01-02] MEDS: Loperamide HCl 2 MG CAPSULE PO ×4 (07:45→20:48)
--- NOTE | 2022-01-02 08:29 | ECG_ITS ---
Test Reason : cp Blood Pressure : / mmHG Vent. Rate : 094 BPM Atrial Rate : 094 BPM P-R Int : 144 ms QRS Dur : 084 ms QT Int : 350 ms P-R-T Axes : 082 049 069 degrees QTc Int : 437 ms Normal sinus rhythm Right atrial enlargement Borderline ECG When compared with ECG of 30-DEC-2021 11:11, No significant change was found Referred By: Hyacinth Travis Electronically Signed By:WILLEM GARCIA
[2022-01-02] MEDS: Famotidine/PF 20 MG/2 ML VIAL IVPUSH (08:38)
[2022-01-02 09:24] LABS: Troponin-I High Sensitivity 10.8 ng/L (<3.5-35.0)
--- NOTE | 2022-01-02 09:47 | MHC.CM.PN ---
Male 71 DX Covid+ as well as ostomy out put high and loose, weakness. DP is home with new [facility]. Services that will be provided have been explained. Pts will provide transportation home at discharge.
[2022-01-02] MEDS: 0.9 % Sodium Chloride 500 ML 999 ML IV (10:15)
[2022-01-02] MEDS: Sodium Bicarbonate 8.4% 150 MEQ in Dextrose 5 % 850 ML 100 MEQ IV ×2 (10:56→20:48)
--- NOTE | 2022-01-02 11:05 | MHC.CLN ---
F/U PT IS MODERATELY MALNOURISHED SEE FULL CLINICAL NUTRITION ASSESSMENT DATED 12/31/21 DIET RX: BLAND LACTOSE FREE-APPROPRIATE PO INTAKE 25% X 2 MD REPORTED OUTPUT FROM OSTOMY DECREASED PT RECEIVING ENSURE TID TO INCREASE KCALS PROVIDES 1050KCALS (51% EST KCAL NEEDS), 60G PROTEIN (43% EST PROTEIN NEEDS) ENCOURAGE PT TO DRINK SUPPLEMENT MONITOR PO INTAKE CLOSELY
--- NOTE | 2022-01-02 11:40 | P.PNIM_ITS ---
Subjective Subjective Date of Service: 01/02/22 Interval History: seen and examined this morning Follow-up for high-output ostomy, COVID-19 patient reports chest pain this morning, described as acid reflux feeling, burping, nausea also reporting dizziness and shortness of breath when standing denies any cough Constitutional Constitutional: Denies chills and Denies fever(s) Cardiovascular Cardiovascular: Reports chest pain, Denies palpitations and Reports dyspnea Respiratory Respiratory: Denies cough and Reports dyspnea Gastrointestinal Gastrointestinal: Denies abdominal pain and Reports nausea Endocrine Endocrine: Denies palpitations Physical Exam Vital Signs: Vital Signs: Last Vital Signs Temp 97.9 F 01/02/22 11:33 Pulse 83 01/02/22 11:33 Resp 16 01/02/22 11:33 BP 121/73 01/02/22 11:33 Pulse Ox 99 01/02/22 11:33 O2 Del Method 01/02/22 11:33 BMI result Body Mass Index 19.5 Const: General: cooperative and comfortable Nutritional Appearance: thin Orientation/consciousness: patient oriented x3 Resp: Effort & Inspection: normal respiratory effort, able to speak in complete sentences, no respiratory distress and no use of accessory muscles A uscultation: no rales and no wheezes Cardio: Rate: regular rate Heart sounds: S1 normal heart sound present and S2 normal heart sound present GI: Other: ostomy with brown liquid output; CANDELARIO drain with scant output Inspection: No distended Palpation (GI): Soft to palpation Neuro: General: patient oriented x3 Extrem: Other: able to move all 4 extremities spontaneously General: Yes no pedal edema Objective Data Active Medications Acetaminophen (Acetaminophen 325 Mg Tablet) 650 mg PO Q6H PRN PRN Reason: Pain, Mild (Pain Scale 1-3) Ascorbic Acid (Ascorbic Acid 500 Mg Tablet) 500 mg PO DAILY [facility] Last Admin: 01/02/22 07:45 Dose: 500 mg Documented By: PRISCILA Diphenoxylate HCl/Atropine (Diphenoxylate/Atrop 2.5/0.025 Tablet) 1 tab PO QID [facility] Stop: 01/04/22 12:59 Enoxaparin Sodium (Enoxaparin Sodium 40 Mg/0.4 Ml Syringe) 40 mg SUBCUT Q24H [facility] Last Admin: 01/01/22 17:02 Dose: 40 mg Documented By: SAL Famotidine (Famotidine/Pf 20 Mg/2 Ml Vial) 20 mg IVPUSH DAILY [facility] Last Admin: 01/02/22 08:57 Dose: Not Given Documented By: PRISCILA Non-Admin Reason: Duplicate Order Sodium Bicarbonate 150 meq/ (Dextrose) 1,000 mls @ 100 mls/hr IV .Q10H [facility] Last Admin: 01/02/22 10:56 Dose: 100 mls/hr Documented By: PRISCILA Loperamide HCl (Loperamide Hcl 2 Mg Capsule) 2 mg PO QID [facility] Last Admin: 01/02/22 07:45 Dose: 2 mg Documented By: PRISCILA Loperamide HCl (Loperamide Hcl 2 Mg Capsule) 2 mg PO Q4H PRN PRN Reason: Diarrhea Metoprolol Tartrate (Metoprolol Tartrate 12.5 Mg Halftab) 12.5 mg PO BID [facility]; Protocol Last Admin: 01/02/22 07:44 Dose: 12.5 mg Documented By: PRISCILA Ondansetron HCl (Ondansetron Hcl 4 Mg/2 Ml Vial) 4 mg IVPUSH Q8H PRN PRN Reason: Nausea and Vomiting Last Admin: 12/31/21 21:36 Dose: 4 mg Documented By: DEIRDRE Pharmacy Consult (Consult Rx Perform Med Rec) 1 each MISCELLANE ONCE PRN PRN Reason: Consult order Sodium Chloride (0.9 % Sodium Chloride Flush 3 Ml Syringe) 3 ml IVFLUSH QSHIFT [facility] Last Admin: 01/02/22 07:44 Dose: 3 ml Documented By: PRISCILA Labs CBC & Chem 7: 01/01/22 06:40 01/02/22 06:25 Labs: Laboratory Results - last 24 hr 01/02/22 01/02/22 06:25 08:49 Anion Gap 17 Estim Creat Clear Calc 56.0 Estimated GFR > 60 Random Glucose 145 H Calcium 8.2 L Total Bilirubin 0.9 Direct Bilirubin 0.4 AST 100 H ALT 136 H Alkaline Phosphatase 204 H Troponin I High Sens 10.8 Total Protein 4.8 L Albumin 2.7 L Assessment and Plan (1) High output ileostomy: Status: Acute (2) COVID-19 virus infection: Status: Acute (3) Nonsustained ventricular tachycardia: Status: Acute (4) Metabolic acidosis: Status: Acute Plan 71 years old male with PMH of renal cancer, colon cancer post colon resection and ostomy who presents to the hospital complaining of increase weakness, de creased oral intake and increased output through the colostomy. Increased ostomy output cdif negative Advised to increase oral intake Resume IVF Continue Imodium around the clock, resume lomotil surgery following orthostatic hypotension secondary to increased ostomy output/dehydration IV fluid repeat orthostatics in AM consider holding BB if no improvement Metabolic acidosis bicarb dropped to 13 reply clear related to increased GI losses will add bicarb to IV fluid monitor BMP chest pain seems more GI in nature EKG without ischemic changes trops flat symptomatic care COVID-19 infection repeat CXR unremarkable. Oxygen saturation 99% on room air Not hypoxic, hold any active treatment for now NSVT Noted on occasion on telemetry, denies any symptoms, normal electrolytes One episode recorded only in the emergency, no recurrence overnight Keep on telemetry seen by Cardiology, recommend outpatient echocardiogram and possible outpatient stress test after COVID-19 resolved Continue low-dose metoprolol Transaminitis Has elevated liver enzymes at baseline, Liver transaminases trending up ? from viral illness will obtain RUQ US, hepatitis screen pending Pseudo hypocalcemia From low albumin continue to monitor, no treatment needed Moderate protein calorie malnutrition BMI 19.5 supplements added DVT PPX- Lovenox Attending - Dr. Quispe Dispo - PT rec STR but unable to assess well due to dizziness when standing, recommend re- evaluation when no longer orthostatic the patient requires inpatient hospitalization for management of increased ostomy output, dehydration Quality Stroke Does the patient have a stroke diagnosis?: No VTE Prior VTE?: No VTE Risk Level:: Medical - moderate - high VTE Device Contraindication: Treatment Not Indicated VTE Drug Contraindication: N/A - Med Ordered
[2022-01-02] MEDS: Diphenoxylate/Atrop 2.5/0.025 TABLET 1 TAB PO ×3 (12:54→20:48)
[2022-01-02] MEDS: Enoxaparin Sodium 40 MG/0.4 ML SYRINGE SUBCUT (18:23)
[2022-01-03] VITALS (7 sets, daily range): BP systolic 93–123; BP diastolic 57–73; PULSE 69–94; RESP 14–20; TEMP 36.3–36.9; O2SAT 96–100
[2022-01-03] MEDS: Sodium Bicarbonate 8.4% 150 MEQ in Dextrose 5 % 850 ML 100 MEQ IV (05:44)
[2022-01-03 06:33] LABS: Hematocrit 40.9 % (42.0-52.0); Hemoglobin 13.3 g/dl (14.0-18.0); Mean Corpuscular HGB Conc 32.5 g/dl (31.0-36.0); Mean Corpuscular Hemoglobin 27.1 pg (27.0-33.0); Mean Corpuscular Volume 83.5 fL (80.0-98.0); Platelet Count 352 X10*3/uL (160-400); Red Cell Distribution Width 19.9 % (11.0-16.0); White Blood Count 9.5 X10*3/uL (4.8-10.8)
[2022-01-03 06:55] LABS: Alanine Aminotransferase 116 U/L (0-40); Albumin Level 2.6 g/dL (3.5-5.0); Alkaline Phosphatase 194 U/L (39-117); Anion Gap 11 (12-20); Aspartate Amino Transferase 74 U/L (5-37); Bilirubin Direct 0.5 mg/dL (0.0-0.5); Blood Urea Nitrogen 29 mg/dL (9-16); Calcium 7.8 mg/dL (8.4-10.2); Carbon Dioxide 21 mmol/L (22-29); Chloride 104 mmol/L (96-108); Creatinine Clr Calc Pharmacy 79.6; Estimated Glomerular Filt Rate > 60; Glucose Random 110 mg/dL (60-115); Potassium 3.3 mmol/L (3.3-5.1); Sodium 133 mmol/L (135-145); Total Protein 4.2 g/dL (6.5-8.0)
[2022-01-03] MEDS: Loperamide HCl 2 MG CAPSULE PO ×4 (09:47→19:57)
[2022-01-03] MEDS: Famotidine/PF 20 MG/2 ML VIAL IVPUSH (09:47)
[2022-01-03] MEDS: Ascorbic Acid 500 MG TABLET PO (09:47)
[2022-01-03] MEDS: 0.9 % Sodium Chloride Flush 3 ML SYRINGE IVFLUSH ×3 (09:47→19:58)
[2022-01-03] MEDS: Metoprolol Tartrate 12.5 MG HALFTAB PO ×2 (09:47→19:57)
[2022-01-03] MEDS: Diphenoxylate/Atrop 2.5/0.025 TABLET 1 TAB PO ×4 (09:47→19:57)
--- NOTE | 2022-01-03 10:12 | HO.PM.IMPN ---
Subjective Subjective Date of Service: 01/03/22 Review of Systems Follow up increased ostomy output/dehydration/covid doing better no pain sob improving Physical Exam Vital Signs: Vital Signs: Last Vital Signs Temp 97.4 F 01/03/22 03:47 Pulse 69 01/03/22 03:47 Resp 16 01/03/22 03:47 BP 115/62 01/03/22 03:47 Pulse Ox 96 01/03/22 03:47 O2 Del Method 01/03/22 03:47 BMI result Body Mass Index 19.5 Appearing in no acute distress lung sounds are clear to auscultation heart regular rate rhythm, clear S1, S2 positive bowel sounds, abdomen is soft, nontender, ostomy intact neuro patient is alert x3, no focal deficits Objective Data Active Medications Acetaminophen (Acetaminophen 325 Mg Tablet) 650 mg PO Q6H PRN PRN Reason: Pain, Mild (Pain Scale 1-3) Ascorbic Acid (Ascorbic Acid 500 Mg Tablet) 500 mg PO DAILY [facility] Last Admin: 01/03/22 09:47 Dose: 500 mg Documented By: PRISCILA Diphenoxylate HCl/Atropine (Diphenoxylate/Atrop 2.5/0.025 Tablet) 1 tab PO QID [facility] Stop: 01/04/22 12:59 Last Admin: 01/03/22 09:47 Dose: 1 tab Documented By: PRISCILA Enoxaparin Sodium (Enoxaparin Sodium 40 Mg/0.4 Ml Syringe) 40 mg SUBCUT Q24H [facility] Last Admin: 01/02/22 18:23 Dose: 40 mg Documented By: PRISCILA Famotidine (Famotidine/Pf 20 Mg/2 Ml Vial) 20 mg IVPUSH DAILY [facility] Last Admin: 01/03/22 09:47 Dose: 20 mg Documented By: PRISCILA Sodium Bicarbonate 150 meq/ (Dextrose) 1,000 mls @ 100 mls/hr IV .Q10H [facility] Last Admin: 01/03/22 05:44 Dose: 100 mls/hr Documented By: CELIA Loperamide HCl (Loperamide Hcl 2 Mg Capsule) 2 mg PO QID [facility] Last Admin: 01/03/22 09:47 Dose: 2 mg Documented By: PRISCILA Loperamide HCl (Loperamide Hcl 2 Mg Capsule) 2 mg PO Q4H PRN PRN Reason: Diarrhea Metoprolol Tartrate (Metoprolol Tartrate 12.5 Mg Halftab) 12.5 mg PO BID [facility]; Protocol Last Admin: 01/03/22 09:47 Dose: 12.5 mg Documented By: PRISCILA Ondansetron HCl (Ondansetron Hcl 4 Mg/2 Ml Vial) 4 mg IVPUSH Q8H PRN PRN Reason: Nausea and Vomiting Last Admin: 12/31/21 21:36 Dose: 4 mg Documented By: DEIRDRE Pharmacy Consult (Consult Rx Perform Med Rec) 1 each MISCELLANE ONCE PRN PRN Reason: Consult order Sodium Chloride (0.9 % Sodium Chloride Flush 3 Ml Syringe) 3 ml IVFLUSH QSHIFT [facility] Last Admin: 01/03/22 09:47 Dose: 3 ml Documented By: PRISCILA Labs CBC & Chem 7: 01/03/22 06:15 01/03/22 06:15 Labs: Laboratory Results - last 24 hr 01/03/22 01/03/22 06:15 06:15 MCV 83.5 D MCH 27.1 MCHC 32.5 RDW 19.9 H Plt Count 352 MPV 9.0 L Absolute Nucleated RBC 0.000 Nucleated RBC % (auto) 0.0 Anion Gap 11 L Estim Creat Clear Calc 79.6 Estimated GFR > 60 Random Glucose 110 Calcium 7.8 L Total Bilirubin 1.0 Direct Bilirubin 0.5 AST 74 H ALT 116 H Alkaline Phosphatase 194 H Total Protein 4.2 L Albumin 2.6 L Assessment and Plan (1) High output ileostomy: Status: Acute (2) COVID-19 virus infection: Status: Acute (3) Nonsustained ventricular tachycardia: Status: Acute (4) Metabolic acidosis: Status: Acute Plan 71 years old male with PMH of renal cancer, colon cancer post colon resection and ostomy who presents to the hospital complaining of increase weakness, decreased oral intake and increased output through the colostomy. Increased ostomy output. likely from viral covid cdif negative Advised to increase oral intake IVF Continue Imodium around the clock, resume lomotil surgery following orthostatic hypotension secondary to increased ostomy output/dehydration IV fluid consider holding BB if no improvement Metabolic acidosis. resolved bicarb dropped to 13 related to increased GI losses monitor BMP IV nabicarb stopped chest pain seems more GI in nature EKG without ischemic changes trops flat symptomatic care COVID-19 infection repeat CXR unremarkable. Oxygen saturation 99% on room air Not hypoxic, hold any active treatment for now NSVT Noted on occasion on telemetry, denies any symptoms, normal electrolytes One episode recorded only in the emergency, no recurrence overnight Keep on telemetry seen by Cardiology, recommend outpatient echocardiogram and possible outpatient stress test after COVID-19 resolved Continue low-dose metoprolol Transaminitis. Trending down Has elevated liver enzymes at baseline likely from viral illness RUQ US showing nothing acute hepatitis screen pending Pseudo hypocalcemia From low albumin continue to monitor, no treatment needed Moderate protein calorie malnutrition BMI 19.5 supplements added DVT PPX- Lovenox Attending - Dr. Duncan Dispo - PT rec STR but unable to assess well due to dizziness when standing, recommend re- evaluation when no longer orthostatic the patient requires inpatient hospitalization for management of increased ostomy output, dehydration, necessitating IV fluid hydration Quality Stroke Does the patient have a stroke diagnosis?: No VTE Prior VTE?: No VTE Risk Level:: Medical - moderate - high VTE Device Contraindication: Treatment Not Indicated VTE Drug Contraindication: N/A - Med Ordered
[2022-01-03] MEDS: Enoxaparin Sodium 40 MG/0.4 ML SYRINGE SUBCUT (16:48)
[2022-01-04 03:26] VITALS: BP 128/69; PULSE 71; RESP 20; TEMP 36.7; O2SAT 100
[2022-01-04 06:34] LABS: Anion Gap 10 (12-20); Blood Urea Nitrogen 25 mg/dL (9-16); Calcium 7.8 mg/dL (8.4-10.2); Carbon Dioxide 22 mmol/L (22-29); Chloride 102 mmol/L (96-108); Creatinine Clr Calc Pharmacy 84.7; Estimated Glomerular Filt Rate > 60; Glucose Random 97 mg/dL (60-115); Potassium 3.3 mmol/L (3.3-5.1); Sodium 131 mmol/L (135-145)
[2022-01-04 06:39] LABS: Alanine Aminotransferase 107 U/L (0-40); Albumin Level 2.5 g/dL (3.5-5.0); Alkaline Phosphatase 190 U/L (39-117); Aspartate Amino Transferase 66 U/L (5-37); Bilirubin Direct 0.6 mg/dL (0.0-0.5)
[2022-01-04 08:00] VITALS: BP 121/66; PULSE 95; RESP 20; TEMP 36.5; O2SAT 99
[2022-01-04] MEDS: 0.9 % Sodium Chloride Flush 3 ML SYRINGE IVFLUSH ×3 (08:41→21:38)
[2022-01-04] MEDS: Famotidine/PF 20 MG/2 ML VIAL IVPUSH (08:41)
[2022-01-04] MEDS: Loperamide HCl 2 MG CAPSULE PO ×4 (08:42→21:35)
[2022-01-04] MEDS: Ascorbic Acid 500 MG TABLET PO (08:42)
[2022-01-04] MEDS: Metoprolol Tartrate 12.5 MG HALFTAB PO (08:42)
[2022-01-04] MEDS: Diphenoxylate/Atrop 2.5/0.025 TABLET 1 TAB PO (08:42)
[2022-01-04 11:45] VITALS: BP 122/73; PULSE 83; RESP 20; TEMP 36.4; O2SAT 100
--- NOTE | 2022-01-04 11:59 | HO.PM.IMPN ---
Subjective Subjective Date of Service: 01/04/22 Review of Systems Follow up increased ostomy output/dehydration/covid doing better no pain sob improving Physical Exam Vital Signs: Vital Signs: Last Vital Signs Temp 97.5 F 01/04/22 11:45 Pulse 83 01/04/22 11:45 Resp 20 01/04/22 11:45 BP 122/73 01/04/22 11:45 Pulse Ox 100 01/04/22 11:45 O2 Del Method 01/04/22 11:45 BMI result Body Mass Index 19.5 Appearing in no acute distress lung sounds are clear to auscultation heart regular rate rhythm, clear S1, S2 positive bowel sounds, abdomen is soft, nontender neuro patient is alert x3, no focal deficits Objective Data Active Medications Acetaminophen (Acetaminophen 325 Mg Tablet) 650 mg PO Q6H PRN PRN Reason: Pain, Mild (Pain Scale 1-3) Ascorbic Acid (Ascorbic Acid 500 Mg Tablet) 500 mg PO DAILY [facility] Last Admin: 01/04/22 08:42 Dose: 500 mg Documented By: PRISCILA Diphenoxylate HCl/Atropine (Diphenoxylate/Atrop 2.5/0.025 Tablet) 1 tab PO QID [facility] Stop: 01/04/22 12:59 Last Admin: 01/04/22 08:42 Dose: 1 tab Documented By: PRISCILA Enoxaparin Sodium (Enoxaparin Sodium 40 Mg/0.4 Ml Syringe) 40 mg SUBCUT Q24H [facility] Last Admin: 01/03/22 16:48 Dose: 40 mg Documented By: PRISCILA Famotidine (Famotidine/Pf 20 Mg/2 Ml Vial) 20 mg IVPUSH DAILY [facility] Last Admin: 01/04/22 08:41 Dose: 20 mg Documented By: PRISCILA Loperamide HCl (Loperamide Hcl 2 Mg Capsule) 2 mg PO QID [facility] Last Admin: 01/04/22 08:42 Dose: 2 mg Documented By: PRISCILA Loperamide HCl (Loperamide Hcl 2 Mg Capsule) 2 mg PO Q4H PRN PRN Reason: Diarrhea Metoprolol Tartrate (Metoprolol Tartrate 12.5 Mg Halftab) 12.5 mg PO BID [facility]; Protocol Last Admin: 01/04/22 08:42 Dose: 12.5 mg Documented By: PRISCILA Ondansetron HCl (Ondansetron Hcl 4 Mg/2 Ml Vial) 4 mg IVPUSH Q8H PRN PRN Reason: Nausea and Vomiting Last Admin: 12/31/21 21:36 Dose: 4 mg Documented By: DEIRDRE Pharmacy Consult (Consult Rx Perform Med Rec) 1 each MISCELLANE ONCE PRN PRN Reason: Consult order Sodium Chloride (0.9 % Sodium Chloride Flush 3 Ml Syringe) 3 ml IVFLUSH QSHIFT [facility] Last Admin: 01/04/22 08:41 Dose: 3 ml Documented By: PRISCILA Labs CBC & Chem 7: 01/03/22 06:15 01/04/22 05:55 Labs: Laboratory Results - last 24 hr 01/04/22 01/04/22 05:55 05:55 Anion Gap 10 L Estim Creat Clear Calc 84.7 Estimated GFR > 60 Random Glucose 97 Calcium 7.8 L Total Bilirubin 1.0 Direct Bilirubin 0.6 H AST 66 H ALT 107 H Alkaline Phosphatase 190 H Total Protein 4.0 L Albumin 2.5 L Assessment and Plan (1) High output ileostomy: Status: Acute (2) COVID-19 virus infection: Status: Acute (3) Nonsustained ventricular tachycardia: Status: Acute (4) Metabolic acidosis: Status: Acute Plan 71 years old male with PMH of renal cancer, colon cancer post colon resection and ostomy who presents to the hospital complaining of increase weakness, decreased oral intake and increased output through the colostomy. Hyponatremia. Likely related to IV fluids Fluid restriction Follow BMP Increased ostomy output. likely from viral covid. now more solid cdif negative Advised to increase oral intake IVF stopped Continue Imodium around the clock, resume lomotil surgery following orthostatic hypotension. symptoms improving secondary to increased ostomy output/dehydration IV fluid stopped Metabolic acidosis. resolved bicarb dropped to 13 related to increased GI losses monitor BMP IV nabicarb stopped chest pain seems more GI in nature EKG without ischemic changes trops flat symptomatic care COVID-19 infection repeat CXR unremarkable. Oxygen saturation 99% on room air Not hypoxic, hold any active treatment for now NSVT Noted on occasion on telemetry, denies any symptoms, normal electrolytes One episode recorded only in the emergency, no recurrence overnight Keep on telemetry seen by Cardiology, recommend outpatient echocardiogram and possible outpatient stress test after COVID-19 resolved Continue low-dose metoprolol Transaminitis. Trending down Has elevated liver enzymes at baseline likely from viral illness RUQ US showing nothing acute hepatitis screen pending Pseudo hypocalcemia From low albumin continue to monitor, no treatment needed Moderate protein calorie malnutrition BMI 19.5 supplements added DVT PPX- Lovenox Attending - Dr. Duncan Dispo - PT rec STR but unable to assess well due to dizziness when standing, recommend re- evaluation when no longer orthostatic Patient requires continued hospitalization for treatment of orthostasis, which is improving but still present and dizziness with standing, continues to need inpatient physical therapy Quality Stroke Does the patient have a stroke diagnosis?: No VTE Prior VTE?: No VTE Risk Level:: Medical - moderate - high VTE Device Contraindication: Treatment Not Indicated VTE Drug Contraindication: N/A - Med Ordered
[2022-01-04 15:27] VITALS: BP 95/54; PULSE 76; RESP 14; TEMP 36.4; O2SAT 98
[2022-01-04] MEDS: Enoxaparin Sodium 40 MG/0.4 ML SYRINGE SUBCUT (17:03)
[2022-01-04 19:41] VITALS: BP 92/59; PULSE 96; RESP 14; TEMP 36.3; O2SAT 98
[2022-01-05] VITALS (10 sets, daily range): BP systolic 67–130; BP diastolic 44–65; PULSE 65–115; RESP 16–20; TEMP 36.2–37.2; O2SAT 98–100
[2022-01-05 07:30] LABS: Blood Urea Nitrogen 23 mg/dL (9-16); Calcium 7.8 mg/dL (8.4-10.2); Creatinine Clr Calc Pharmacy 94.4; Estimated Glomerular Filt Rate > 60; Glucose Random 97 mg/dL (60-115)
[2022-01-05 07:41] LABS: Anion Gap 11 (12-20); Carbon Dioxide 22 mmol/L (22-29); Chloride 102 mmol/L (96-108); Potassium 2.8 mmol/L (3.3-5.1); Sodium 132 mmol/L (135-145)
[2022-01-05 08:07] LABS: HBS Num1 1.33 mIU/mL (0-7.99); HBc Num1 0.08 S/CO (0.00-0.79); HBsAGNum1 0.18 S/CO (0.00-0.99); Hepatitis B Core Antibody Nonreactive (Nonreactive); Hepatitis B Surface Antigen Negative (Negative); ~HepC Num1 0.04 S/CO (0.00-0.79); ~Hepatitis B Surface Antibody NONREACTIVE (Nonreactive); ~Hepatitis C Antibody Nonreactive (Nonreactive)
[2022-01-05] MEDS: 0.9 % Sodium Chloride Flush 3 ML SYRINGE IVFLUSH ×3 (08:21→21:47)
[2022-01-05] MEDS: Potassium Chloride ER 20 MEQ TAB.ER.PRT 40 MEQ PO (08:21)
[2022-01-05] MEDS: Metoprolol Tartrate 12.5 MG HALFTAB PO ×2 (08:22→21:45)
[2022-01-05] MEDS: Loperamide HCl 2 MG CAPSULE PO ×4 (08:22→21:45)
[2022-01-05] MEDS: Ascorbic Acid 500 MG TABLET PO (08:22)
[2022-01-05] MEDS: Famotidine/PF 20 MG/2 ML VIAL IVPUSH (08:22)
--- NOTE | 2022-01-05 09:18 | P.PNIM_ITS ---
Subjective Subjective Date of Service: 01/05/22 <Blank Mims NP - Last Filed: 01/05/22 09:24> 01/07/22 <Antonino Quispe MD - Last Filed: 01/07/22 08:45> Review of Systems Follow up increased ostomy output/dehydration/covid doing better no pain sob improving <Blank Mims NP - Last Filed: 01/05/22 09:24> Physical Exam Vital Signs: Vital Signs: Last Vital Signs Temp 98.5 F 01/05/22 07:53 Pulse 115 H 01/05/22 07:55 Resp 16 01/05/22 07:53 BP 67/44 L 01/05/22 07:55 Pulse Ox 100 01/05/22 07:53 O2 Del Method 01/05/22 07:53 O2 Flow Rate 98 01/05/22 00:00 BMI result Body Mass Index 19.5 <Blank Mims NP - Last Filed: 01/05/22 09:24> Appearing in no acute distress lung sounds are clear to auscultation heart regular rate rhythm, clear S1, S2 positive bowel sounds, abdomen is soft, nontender neuro patient is alert x3, no focal deficits <Blank Mims NP - Last Filed: 01/05/22 09:24> Objective Data Active Medications Acetaminophen (Acetaminophen 325 Mg Tablet) 650 mg PO Q6H PRN PRN Reason: Pain, Mild (Pain Scale 1-3) Ascorbic Acid (Ascorbic Acid 500 Mg Tablet) 500 mg PO DAILY [facility] Last Admin: 01/05/22 08:22 Dose: 500 mg Documented By: PRISCILA Enoxaparin Sodium (Enoxaparin Sodium 40 Mg/0.4 Ml Syringe) 40 mg SUBCUT Q24H [facility] Last Admin: 01/04/22 17:03 Dose: 40 mg Documented By: PRISCILA Famotidine (Famotidine/Pf 20 Mg/2 Ml Vial) 20 mg IVPUSH DAILY [facility] Last Admin: 01/05/22 08:22 Dose: 20 mg Documented By: PRISCILA Loperamide HCl (Loperamide Hcl 2 Mg Capsule) 2 mg PO QID [facility] Last Admin: 01/05/22 08:22 Dose: 2 mg Documented By: PRISCILA Loperamide HCl (Loperamide Hcl 2 Mg Capsule) 2 mg PO Q4H PRN PRN Reason: Diarrhea Metoprolol Tartrate (Metoprolol Tartrate 12.5 Mg Halftab) 12.5 mg PO BID [facility]; Protocol Last Admin: 01/05/22 08:22 Dose: 12.5 mg Documented By: PRISCILA Ondansetron HCl (Ondansetron Hcl 4 Mg/2 Ml Vial) 4 mg IVPUSH Q8H PRN PRN Reason: Nausea and Vomiting Last Admin: 12/31/21 21:36 Dose: 4 mg Documented By: DEIRDRE Pharmacy Consult (Consult Rx Perform Med Rec) 1 each MISCELLANE ONCE PRN PRN Reason: Consult order Sodium Chloride (0.9 % Sodium Chloride Flush 3 Ml Syringe) 3 ml IVFLUSH QSHIFT [facility] Last Admin: 01/05/22 08:21 Dose: 3 ml Documented By: PRISCILA <Blank Mims NP - Last Filed: 01/05/22 09:24> Labs CBC & Chem 7: : 01/03/22 06:15 01/06/22 09:39 <Blank Mims NP - Last Filed: 01/05/22 09:24> Labs: Laboratory Results - last 24 hr 01/03/22 01/05/22 06:15 06:56 Anion Gap 11 L Estim Creat Clear Calc 94.4 Estimated GFR > 60 Random Glucose 97 Calcium 7.8 L Hep Bs Antigen Negative Hep Bs Antibody NONREACTIVE Hep B Core Total Ab Nonreactive Hepatitis C Ab (EIA) Nonreactive <Blank Mims NP - Last Filed: 01/05/22 09:24> Assessment and Plan (1) High output ileostomy: Status: Acute <Blank Mims NP - Last Filed: 01/05/22 09:24> (2) COVID-19 virus infection: Status: Acute <Blank Mims NP - Last Filed: 01/05/22 09:24> (3) Nonsustained ventricular tachycardia: Status: Acute <Blank Mims NP - Last Filed: 01/05/22 09:24> (4) Metabolic acidosis: Status: Acute <Blank Mims NP - Last Filed: 01/05/22 09:24> Assessment and Plan: 71 years old male with PMH of renal cancer, colon cancer post colon resection and ostomy who presents to the hospital complaining of increase weakness, decreased oral intake and increased output through the colostomy. Hyponatremia. Likely related to IV fluids improving Fluid restriction Follow BMP Increased ostomy output. likely from viral covid. now more solid cdif negative Advised to increase oral intake IVF stopped Continue Imodium around the clock, resume lomotil surgery following orthostatic hypotension. Still orthostatic secondary to increased ostomy output/dehydration IV fluid stopped will consult nephrology Metabolic acidosis. resolved bicarb dropped to 13 related to increased GI losses monitor BMP IV nabicarb stopped chest pain. Resolved seems more GI in nature EKG without ischemic changes trops flat symptomatic care COVID-19 infection repeat CXR unremarkable. Oxygen saturation 99% on room air Not hypoxic, hold any active treatment for now NSVT Noted on occasion on telemetry, denies any symptoms, normal electrolytes One episode recorded only in the emergency, no recurrence overnight Keep on telemetry seen by Cardiology, recommend outpatient echocardiogram and possible outpatient stress test after COVID-19 resolved Continue low-dose metoprolol Transaminitis. Trending down Has elevated liver enzymes at baseline likely from viral illness RUQ US showing nothing acute hepatitis screen pending Pseudo hypocalcemia From low albumin continue to monitor, no treatment needed Moderate protein calorie malnutrition BMI 19.5 supplements added DVT PPX- Lovenox Attending - Dr. Quispe Dispo - PT rec STR but unable to assess well due to dizziness when standing, recommend re- evaluation when no longer orthostatic Patient requires continued hospitalization for treatment of orthostasis, which is improving but still present and dizziness with standing, continues to need inpatient physical therapy <Blank Mims NP - Last Filed: 01/05/22 09:24> Quality Stroke Does the patient have a stroke diagnosis?: No <Blank Mims NP - Last Filed: 01/05/22:24> VTE Prior VTE?: No <Blank Mims NP - Last Filed: 01/05/22 09:24> VTE Risk Level:: Medical - moderate - high <Blank Mims NP - Last Filed: 01/05/22:24> VTE Device Contraindication: Treatment Not Indicated <Blank Mims NP - Last Filed: 01/05/22 09:24> VTE Drug Contraindication: N/A - Med Ordered <Blank Mims NP - Last Filed: 01/05/22 09:24>
[2022-01-05] MEDS: Midodrine HCl 5 MG TABLET PO ×3 (11:11→21:45)
--- NOTE | 2022-01-05 11:15 | MHC.CLN ---
F/U PO INTAKE VARIABLE DIET RX: BLAND LACTOSE FREE-APPROPRIATE 1500ML FLUID RESTRICTION IN PLACE R/T HYPONATREMIA PT RECEIVING ENSURE TID TO INCREASE KCALS PROVIDES 1050KCALS (51% EST KCAL NEEDS), 60G PROTEIN (43% EST PROTEIN NEEDS), 540ML FREE WATER FROM SUPPLEMENT (FOR FLUID RESTRICTION; 180ML PER 8OZ SUPPLEMENT) CONTINUE TO MONITOR PO INTAKE CLOSELY
--- NOTE | 2022-01-05 13:03 | P.PNGS_ITS ---
Subjective Subjective Date of Service: 01/05/22 Interval history: he says he has better oral intake slowly feeling better but still weak stoma output still a little soft but better formed Physical Exam Vital Signs: Vital Signs: Last Vital Signs Temp 97.2 F 01/05/22 11:25 Pulse 86 01/05/22 11:25 Resp 20 01/05/22 11:25 BP 115/60 01/05/22 11:25 Pulse Ox 100 01/05/22 11:25 O2 Del Method 01/05/22 11:25 O2 Flow Rate 98 01/05/22 00:00 BMI result Body Mass Index 19.5 Const: General: comfortable and no acute distress Resp: Effort & Inspection: normal respiratory effort Cardio: Rate: regular rate GI: Other: colostomy functioning well output watery to soft Palpation (GI): Soft to palpation, not firm and no guarding Objective Data Active Medications Acetaminophen (Acetaminophen 325 Mg Tablet) 650 mg PO Q6H PRN PRN Reason: Pain, Mild (Pain Scale 1-3) Ascorbic Acid (Ascorbic Acid 500 Mg Tablet) 500 mg PO DAILY [facility] Last Admin: 01/05/22 08:22 Dose: 500 mg Documented By: PRISCILA Enoxaparin Sodium (Enoxaparin Sodium 40 Mg/0.4 Ml Syringe) 40 mg SUBCUT Q24H [facility] Last Admin: 01/04/22 17:03 Dose: 40 mg Documented By: PRISCILA Famotidine (Famotidine/Pf 20 Mg/2 Ml Vial) 20 mg IVPUSH DAILY [facility] Last Admin: 01/05/22 08:22 Dose: 20 mg Documented By: PRISCILA Loperamide HCl (Loperamide Hcl 2 Mg Capsule) 2 mg PO QID [facility] Last Admin: 01/05/22 11:11 Dose: 2 mg Documented By: YARITZA Loperamide HCl (Loperamide Hcl 2 Mg Capsule) 2 mg PO Q4H PRN PRN Reason: Diarrhea Metoprolol Tartrate (Metoprolol Tartrate 12.5 Mg Halftab) 12.5 mg PO BID [facility]; Protocol Last Admin: 01/05/22 08:22 Dose: 12.5 mg Documented By: PRISCILA Midodrine (Midodrine Hcl 5 Mg Tablet) 5 mg PO TID [facility] Last Admin: 01/05/22 11:11 Dose: 5 mg Documented By: YARITZA Ondansetron HCl (Ondansetron Hcl 4 Mg/2 Ml Vial) 4 mg IVPUSH Q8H PRN PRN Reason: Nausea and Vomiting Last Admin: 12/31/21 21:36 Dose: 4 mg Documented By: DEIRDRE Pharmacy Consult (Consult Rx Perform Med Rec) 1 each MISCELLANE ONCE PRN PRN Reason: Consult order Sodium Chloride (0.9 % Sodium Chloride Flush 3 Ml Syringe) 3 ml IVFLUSH QSHIFT [facility] Last Admin: 01/05/22 08:21 Dose: 3 ml Documented By: PRISCILA Labs CBC & Chem 7: 01/03/22 06:15 01/05/22 06:56 Labs: Laboratory Results - last 24 hr 01/03/22 01/05/22 06:15 06:56 Anion Gap 11 L Estim Creat Clear Calc 94.4 Estimated GFR > 60 Random Glucose 97 Calcium 7.8 L Hep Bs Antigen Negative Hep Bs Antibody NONREACTIVE Hep B Core Total Ab Nonreactive Hepatitis C Ab (EIA) Nonreactive Procedures Date of Service Date of Service: 01/05/22 Progress Note: A&P Assessment and plan (1) Colostomy in place: Status: Acute Assessment and Plan: he is scheduled to have the drain laparoscopically in the OR tomorrow will have to hold this off because of acute issues still currently a little orthostatic explained this to him he understands Time Spent With Patient Time: Total time spent is greater than 50% in coordination of care (as documented) at patient's floor/unit and/or counseling patient: Quality Stroke Does the patient have a stroke diagnosis?: No VTE Prior VTE?: No VTE Risk Level:: Medical - moderate - high VTE Device Contraindication: Treatment Not Indicated VTE Drug Contraindication: N/A - Med Ordered
[2022-01-05] MEDS: Enoxaparin Sodium 40 MG/0.4 ML SYRINGE SUBCUT (16:49)
[2022-01-06 03:36] VITALS: BP 112/63; PULSE 65; RESP 65; TEMP 36.4; O2SAT 96
[2022-01-06 08:00] VITALS: BP 98/63; PULSE 78; RESP 20; TEMP 37; O2SAT 100
[2022-01-06] MEDS: Famotidine/PF 20 MG/2 ML VIAL IVPUSH (09:29)
[2022-01-06] MEDS: Metoprolol Tartrate 12.5 MG HALFTAB PO ×2 (09:29→21:28)
[2022-01-06] MEDS: Midodrine HCl 5 MG TABLET PO ×3 (09:29→21:27)
[2022-01-06] MEDS: Loperamide HCl 2 MG CAPSULE PO ×4 (09:29→21:28)
[2022-01-06] MEDS: Ascorbic Acid 500 MG TABLET PO (09:29)
[2022-01-06] MEDS: 0.9 % Sodium Chloride Flush 3 ML SYRINGE IVFLUSH ×3 (09:32→21:28)
[2022-01-06 09:39] VITALS: BP 98/63; PULSE 78; O2SAT 100
[2022-01-06 10:24] LABS: Blood Urea Nitrogen 18 mg/dL (9-16); Creatinine Clr Calc Pharmacy 85.8; Estimated Glomerular Filt Rate > 60; Glucose Random 99 mg/dL (60-115)
--- NOTE | 2022-01-06 10:30 | HO.PM.IMPN ---
Subjective Subjective Date of Service: 01/06/22 Review of Systems Follow up increased ostomy output/dehydration/covid doing better no pain sob improving OOB walking with no dizziness Physical Exam Vital Signs: Vital Signs: Last Vital Signs Temp 98.6 F 01/06/22 08:00 Pulse 78 01/06/22 09:39 Resp 20 01/06/22 08:00 BP 98/63 01/06/22 09:39 Pulse Ox 100 01/06/22 09:39 O2 Del Method 01/06/22 08:00 O2 Flow Rate 98 01/05/22 00:00 BMI result Body Mass Index 19.5 Appearing in no acute distress lung sounds are clear to auscultation heart regular rate rhythm, clear S1, S2 positive bowel sounds, abdomen is soft, nontender, ostomy, drain neuro patient is alert x3, no focal deficits Objective Data Active Medications Acetaminophen (Acetaminophen 325 Mg Tablet) 650 mg PO Q6H PRN PRN Reason: Pain, Mild (Pain Scale 1-3) Ascorbic Acid (Ascorbic Acid 500 Mg Tablet) 500 mg PO DAILY [facility] Last Admin: 01/06/22 09:29 Dose: 500 mg Documented By: DULCE Enoxaparin Sodium (Enoxaparin Sodium 40 Mg/0.4 Ml Syringe) 40 mg SUBCUT Q24H [facility] Last Admin: 01/05/22 16:49 Dose: 40 mg Documented By: YARITZA Famotidine (Famotidine/Pf 20 Mg/2 Ml Vial) 20 mg IVPUSH DAILY [facility] Last Admin: 01/06/22 09:29 Dose: 20 mg Documented By: DULCE Loperamide HCl (Loperamide Hcl 2 Mg Capsule) 2 mg PO QID [facility] Last Admin: 01/06/22 09:29 Dose: 2 mg Documented By: DULCE Loperamide HCl (Loperamide Hcl 2 Mg Capsule) 2 mg PO Q4H PRN PRN Reason: Diarrhea Metoprolol Tartrate (Metoprolol Tartrate 12.5 Mg Halftab) 12.5 mg PO BID [facility]; Protocol Last Admin: 01/06/22 09:29 Dose: 12.5 mg Documented By: DULCE Midodrine (Midodrine Hcl 5 Mg Tablet) 5 mg PO TID [facility] Last Admin: 01/06/22 09:29 Dose: 5 mg Documented By: DULCE Ondansetron HCl (Ondansetron Hcl 4 Mg/2 Ml Vial) 4 mg IVPUSH Q8H PRN PRN Reason: Nausea and Vomiting Last Admin: 12/31/21 21:36 Dose: 4 mg Documented By: DEIRDRE Pharmacy Consult (Consult Rx Perform Med Rec) 1 each MISCELLANE ONCE PRN PRN Reason: Consult order Sodium Chloride (0.9 % Sodium Chloride Flush 3 Ml Syringe) 3 ml IVFLUSH QSHIFT [facility] Last Admin: 01/06/22 09:32 Dose: 3 ml Documented By: DULCE Labs CBC & Chem 7: 01/03/22 06:15 01/06/22 09:39 Labs: Laboratory Results - last 24 hr 01/06/22 09:39 Estim Creat Clear Calc 85.8 Estimated GFR > 60 Random Glucose 99 Calcium 8.0 L Assessment and Plan (1) High output ileostomy: Status: Acute (2) COVID-19 virus infection: Status: Acute (3) Nonsustained ventricular tachycardia: Status: Acute (4) Metabolic acidosis: Status: Acute Plan 71 years old male with PMH of renal cancer, colon cancer post colon resection and ostomy who presents to the hospital complaining of increase weakness, decreased oral intake and increased output through the colostomy. 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 Likely related to IV fluids improving Fluid restriction Follow BMP Increased ostomy output. likely from viral covid. now more solid cdif negative Advised to increase oral intake IVF stopped Continue Imodium around the clock, resume lomotil surgery following orthostatic hypotension. Better after midodrine added secondary to increased ostomy output/dehydration IV fluid stopped nephrology following Metabolic acidosis. resolved related to increased GI losses monitor BMP IV nabicarb stopped chest pain. Resolved seems more GI in nature EKG without ischemic changes trops flat symptomatic care COVID-19 infection repeat CXR unremarkable. Oxygen saturation 99% on room air Not hypoxic, hold any active treatment for now NSVT Noted on occasion on telemetry, denies any symptoms, normal electrolytes One episode recorded only in the emergency, no recurrence overnight Keep on telemetry seen by Cardiology, recommend outpatient echocardiogram and possible outpatient stress test after COVID-19 resolved Continue low-dose metoprolol needs cardio clearance for drain removal procedure Transaminitis. Trending down Has elevated liver enzymes at baseline likely from viral illness RUQ US showing nothing acute hepatitis screen pending Pseudo hypocalcemia From low albumin continue to monitor, no treatment needed CANDELARIO drain in place, to be removed this hospitalization Moderate protein calorie malnutrition BMI 19.5 supplements added DVT PPX- Lovenox Attending - Dr. Quispe Dispo - PT rec STR Patient requires continued hospitalization for treatment of orthostasis, which is improving but still present and dizziness with standing, continues to need inpatient physical therapy Quality Stroke Does the patient have a stroke diagnosis?: No VTE Prior VTE?: No VTE Risk Level:: Medical - moderate - high VTE Device Contraindication: Treatment Not Indicated VTE Drug Contraindication: N/A - Med Ordered
--- NOTE | 2022-01-06 10:34 | P.PNNP_ITS ---
Subjective Subjective Date of Service: 01/06/22 Interval history: Events noted BP remains low Physical Exam Vital Signs: Vital Signs: Last Vital Signs Temp 98.6 F 01/06/22 08:00 Pulse 78 01/06/22 09:39 Resp 20 01/06/22 08:00 BP 98/63 01/06/22 09:39 Pulse Ox 100 01/06/22 09:39 O2 Del Method 01/06/22 08:00 O2 Flow Rate 98 01/05/22 00:00 BMI result Body Mass Index 19.5 Const: Other: frail looking but appears comfortable Resp: Effort & Inspection: able to speak in complete sentences Ausculta tion: no rales Cardio: Rate: regular rate Heart sounds: no rubs GI: Palpation (GI): not firm and nontender Extrem: General: Yes no pedal edema Objective Data Labs CBC & Chem 7: 01/03/22 06:15 01/06/22 09:39 Labs: Laboratory Results - last 24 hr 01/06/22 09:39 BUN 18 H Creatinine 0.77 Estim Creat Clear Calc 85.8 Estimated GFR > 60 Random Glucose 99 Calcium 8.0 L Procedures Date of Service Date of Service: 01/06/22 Assessment & Plan Assessment and plan (1) HTN (hypertension): Status: Acute Plan Hyponatremia Orthostatic hypotension Hypokalemia Hyponatremia - DDX Hypovolemia r/o adrenal isufficiency ludin due to low BP Suggest Check urine Na/Osm Cortisol (ordered) IV NS @ 80 cc/hr REstrict PO water intake Replace K orally Keep Midodrine Time Spent With Patient Time: Total time spent is greater than 50% in coordination of care (as documented) at patient's floor/unit and/or counseling patient: Progress Note: Quality Stroke Does the patient have a stroke diagnosis?: No
[2022-01-06 10:35] LABS: Anion Gap 14 (12-20); Carbon Dioxide 24 mmol/L (22-29); Chloride 102 mmol/L (96-108); Potassium 3.8 mmol/L (3.3-5.1); Sodium 136 mmol/L (135-145)
--- NOTE | 2022-01-06 10:46 | CONS_ITS ---
DATE OF SERVICE: 01/05/2022 REASON FOR CONSULTATION: I was called to see this patient today to assist with management of hyponatremia and orthostatic hypotension. HISTORY OF PRESENT ILLNESS: Alfredo is a 71-year-old man with multiple medical problems. 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 He has ostomy in place. He has excessive drainage from the ostomy and he was initially dehydrated. He is also tested positive COVID and he is gradually improving. 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 At the time of admission, serum creatinine 1.1. Serum sodium was normal. However, during this admission, he has received IV fluids and he has also been drinking lots of free water. Subsequently, serum sodium was decreased to 132 and he has had orthostatic blood pressure changes and hence this consultation. Ongoing past medical problems include history of adenocarcinoma of the colon, status post resection and a colostomy bag. Clear cell carcinoma of the right kidney. FAMILY HISTORY: Not significant for this admission. SURGICAL HISTORY: Includes surgical dissection of colon. SOCIAL HISTORY: Lives with his spouse. History of smoking in the past. Does not smoke or consume alcohol. ALLERGIES: AT PRESENT, NO KNOWN DRUG ALLERGIES. HOME MEDICATIONS: All the home medications were reviewed. CURRENT MEDICATIONS: His current medications include vitamin C, loperamide, metoprolol, midodrine, and potassium chloride, Zofran. REVIEW OF SYSTEMS: Positive for increased ostomy output, which is improving. No nausea or vomiting. He is consuming lots of free water, but no clear polydipsia, polyuria. No fever. No weight loss. Has some shortness of breath earlier on, but this is improved. All other systems were reviewed. PHYSICAL EXAMINATION: GENERAL: Alfredo is a 71-year-old man who appears comfortable. HEENT: Pupils regular. NECK: Supple. No JVD. LUNGS: Air entry equal. HEART: S1, S2 heard. No gallop. ABDOMEN: Soft. There is an ostomy bag. NEURO: Alert and awake. No masses. EXTREMITIES: No edema. VITAL SIGNS: Blood pressure was 67/44 earlier this morning. LABORATORY DATA: Hemoglobin 10.3. Sodium 132, potassium 2.8, BUN 23, creatinine 0.7. Urine studies on the week ago showed a specific gravity of more than 1.030. No new studies are available. IMPRESSION: A 71-year-old man with COVID-19 infection in the setting of adenocarcinoma of the colon and clear cell carcinoma of the kidney, currently has hyponatremia with orthostatic blood pressure changes. 1. Hyponatremia. Alfredo probably has hypovolemic hyponatremia. This could have been worsened by increased free water intake. However, since he does have orthostatic blood pressure changes, adrenal insufficiency should be ruled out. 2. Acute kidney injury. Renal function is back to baseline. 3. Hypokalemia due to GI losses. 4. Orthostatic hypotension. This is part due to hypovolemia versus adrenal insufficiency. RECOMMENDATIONS: 1. Would include a check urine for sodium, creatinine osmolality. 2. Check serum cortisol level. 3. For now, continue with the midodrine. 4. Start IV hydration normal saline with 10 mEq of potassium at 100 cc/hour. Keep intake and output. 5. Restrict hypotonic fluids/oral free water intake to less than 1 L per 24 hours. Goal is correct the serum sodium and rate of 0.5 millimole per L per hour. 6. Further workup will be based on the baseline medications. We will follow along with the team. Ankush Low MD BPA/MODL / [id number] [facility]M[place]
[2022-01-06 11:51] VITALS: BP 104/58; PULSE 69; RESP 20; TEMP 36.4; O2SAT 100
--- NOTE | 2022-01-06 14:55 | PM.PNCARD ---
Subjective Subjective Date of Service: 01/06/22 Interval history: Seen and examined at bedside. We have been asked to see him because he had PVCs when he was taken to OR for abdominal drain removal. Reviewing telemetry does not have any evidence of recurrent PVCs. He is denying chest pain, shortness of breath or any palpitations right now. Physical Exam Vital Signs: Last Vital Signs Temp 97.6 F 01/06/22 11:51 Pulse 69 01/06/22 11:51 Resp 20 01/06/22 11:51 BP 104/58 L 01/06/22 11:51 Pulse Ox 100 01/06/22 11:51 O2 Del Method 01/06/22 11:51 O2 Flow Rate 98 01/05/22 00:00 BMI result Body Mass Index 19.5 GENERAL APPEARANCE: in no acute distress. NECK: no carotid bruit, no jugular venous distention. SKIN: no suspicious lesions, warm and dry. HEART: no murmurs, regular rate and rhythm. LUNGS: clear to auscultation bilaterally. ABDOMEN: Drain in place. Colostomy bag in place. EXTREMITIES: no edema. PERIPHERAL PULSES: equal. NEUROLOGIC: No gross deficits, AAO X 3 Objective Labs and Meds Result diagrams: 01/03/22 06:15 01/06/22 09:39 Lab results: Laboratory Results - last 24 hr 01/06/22 09:39 Sodium 136 Potassium 3.8 D Chloride 102 Carbon Dioxide 24 Anion Gap 14 BUN 18 H Creatinine 0.77 Estim Creat Clear Calc 85.8 Estimated GFR > 60 Random Glucose 99 Calcium 8.0 L Progress Note: A&P Assessment and plan (1) COVID-19 virus infection: Status: Acute (2) Nonsustained ventricular tachycardia: Status: Acute Plan [age] gentleman with COVID-19 infection who went to OR to have an abdominal drain removed but developed PVCs and nonsustained VT. Reviewing telemetry there is no evidence of any arrhythmia currently. His EKG from January 02 did not show any significant abnormalities. His QT interval is 437 milliseconds. I think his electrolytes need to be monitor closely and keep the potassium above 4.5 and magnesium above 2. Agree with low-dose beta-diana currently. It appears he has been getting midodrine for orthostasis. He does not look volume overloaded. He should be volume resuscitated to see if the orthostasis improved. If he continues to have this then he should have cortisol level checked to make sure he does not have any evidence of adrenal insufficiency. Thank you for allowing me to participate in the care of your patient. Please feel free to contact me if you have any questions. Time Spent With Patient Time: Total time spent is greater than 50% in coordination of care (as documented) at patient's floor/unit and/or counseling patient: Progress Note: Quality Stroke Does the patient have a stroke diagnosis?: No Procedures Date of Service Date of Service: 01/06/22
[2022-01-06 15:33] LABS: Creatinine Urine 188.43 mg/dL; Osmolality Urine 754 mosm/kg (373-1093); Sodium Urine Random < 20.0 mmol/L
[2022-01-06] MEDS: Enoxaparin Sodium 40 MG/0.4 ML SYRINGE SUBCUT (16:47)
[2022-01-06 19:48] VITALS: BP 121/58; PULSE 81; RESP 18; TEMP 37.2; O2SAT 98
[2022-01-06 23:28] VITALS: BP 112/57; PULSE 72; RESP 18; TEMP 37.3; O2SAT 100
[2022-01-07] VITALS (12 sets, daily range): BP systolic 77–147; BP diastolic 52–86; PULSE 65–93; RESP 15–18; TEMP 35.7–37; O2SAT 95–100
[2022-01-07 07:48] LABS: ~Hepatitis A Antibody IgM Nonreactive (Nonreactive)
[2022-01-07] MEDS: Metoprolol Tartrate 12.5 MG HALFTAB PO ×2 (08:44→20:22)
[2022-01-07] MEDS: Midodrine HCl 5 MG TABLET PO ×3 (08:45→20:22)
[2022-01-07] MEDS: Ascorbic Acid 500 MG TABLET PO (08:45)
[2022-01-07] MEDS: Loperamide HCl 2 MG CAPSULE PO ×4 (08:45→20:22)
[2022-01-07] MEDS: Famotidine/PF 20 MG/2 ML VIAL IVPUSH (08:45)
[2022-01-07 08:53] LABS: Anion Gap 10 (12-20); Blood Urea Nitrogen 16 mg/dL (9-16); Calcium 7.8 mg/dL (8.4-10.2); Carbon Dioxide 25 mmol/L (22-29); Chloride 103 mmol/L (96-108); Creatinine Clr Calc Pharmacy 95.8; Estimated Glomerular Filt Rate > 60; Glucose Random 88 mg/dL (60-115); Potassium 3.6 mmol/L (3.3-5.1); Sodium 134 mmol/L (135-145)
--- NOTE | 2022-01-07 08:57 | MHC.CLN ---
F/U PO INTAKE IMPROVED 50-100% X 2 DAYS DIET RX: BLAND LACTOSE FREE-APPROPRIATE 1500ML FLUID RESTRICTION CONTINUES R/T HYPONATREMIA PT CONTINUES TO RECEIVE ENSURE TID TO INCREASE KCALS PROVIDES 1050KCALS (51% EST KCAL NEEDS), 60G PROTEIN (43% EST PROTEIN NEEDS), 540ML FREE WATER FROM SUPPLEMENT (FOR FLUID RESTRICTION; 180ML PER 8OZ SUPPLEMENT) CONTINUE TO MONITOR PO INTAKE CLOSELY
[2022-01-07 09:45] LABS: COVID-19 Test Negative (Negative); IDNOW Serial# 16C4AD1C
[2022-01-07 09:46] LABS: Osmolality, Serum 276 mosm/kg (281-305)
--- NOTE | 2022-01-07 11:04 | PM.PNNEP ---
Subjective Subjective Date of Service: 01/07/22 Interval history: Events noted BP seems better today Physical Exam Vital Signs: Vital Signs: Last Vital Signs Temp 98.1 F 01/07/22 07:57 Pulse 71 01/07/22 10:44 Resp 18 01/07/22 07:57 BP 112/58 L 01/07/22 10:44 Pulse Ox 95 01/07/22 10:44 O2 Del Method 01/07/22 07:57 O2 Flow Rate 98 01/05/22 00:00 BMI result Body Mass Index 19.5 Objective Data Labs CBC & Chem 7: 01/03/22 06:15 01/07/22 08:16 Labs: Laboratory Results - last 24 hr 01/03/22 01/06/22 01/06/22 06:15 14:15 14:15 Sodium Potassium Chloride Carbon Dioxide Anion Gap BUN Creatinine Estim Creat Clear Calc Estimated GFR Random Glucose Osmolality Calcium Urine Osmolality 754 Ur Random Sodium < 20.0 Urine Creatinine 188.43 COVID-19 ([facility]) COVID-19 Clin Com Hepatitis A IgM Ab Nonreactive 01/07/22 01/07/22 01/07/22 08:16 08:16 08:50 Sodium 134 L Potassium 3.6 Chloride 103 Carbon Dioxide 25 Anion Gap 10 L BUN 16 Creatinine 0.69 Estim Creat Clear Calc 95.8 Estimated GFR > 60 Random Glucose 88 Osmolality 276 L Calcium 7.8 L Urine Osmolality Ur Random Sodium Urine Creatinine COVID-19 ([facility]) Negative COVID-19 Clin Com See Note Hepatitis A IgM Ab Procedures Date of Service Date of Service: 01/07/22 Assessment & Plan Assessment and plan (1) HTN (hypertension): Status: Acute Plan Hyponatremia Orthostatic hypotension Hypokalemia Hyponatremia - DDX Hypovolemia - supported by LOW urine sodium < 20 r/o adrenal isufficiency ludin due to low BP Suggest Cortisol (ordered) IV NS @ 80 cc/hr if SBP < 100 mmHg REstrict PO water intake Replace K orally Keep Midodrine Time Spent With Patient Time: Total time spent is greater than 50% in coordination of care (as documented) at patient's floor/unit and/or counseling patient: Progress Note: Quality Stroke Does the patient have a stroke diagnosis?: No
--- NOTE | 2022-01-07 13:35 | MHC.CM.PN ---
Male 71 DX Covid+ increased ostomy out put dizziness. PT is recommending STR. [facility] new [facility] vs STR. [facility] is following for discharge. Patient's will provide transportationhome.
--- NOTE | 2022-01-07 13:47 | PM.PNGS ---
Subjective Subjective Date of Service: 01/07/22 Interval history: Says he feels better States that he has better exercise tolerance Stoma functioning well Denies abdominal pain Physical Exam Vital Signs: Vital Signs: Last Vital Signs Temp 97.8 F 01/07/22 11:38 Pulse 91 01/07/22 12:16 Resp 18 01/07/22 11:38 BP 77/52 L 01/07/22 12:16 Pulse Ox 100 01/07/22 11:38 O2 Del Method 01/07/22 11:38 O2 Flow Rate 98 01/05/22 00:00 BMI result Body Mass Index 19.5 Const: Other: Very frail looking but comfortable Resp: Effort & Inspection: normal respiratory effort Cardio: Rate: regular rate GI: Other: Colostomy functioning well, midline incision well healed Palpation (GI): Soft to palpation and not firm Objective Data Active Medications Acetaminophen (Acetaminophen 325 Mg Tablet) 650 mg PO Q6H PRN PRN Reason: Pain, Mild (Pain Scale 1-3) Ascorbic Acid (Ascorbic Acid 500 Mg Tablet) 500 mg PO DAILY [facility] Last Admin: 01/07/22 08:45 Dose: 500 mg Documented By: GERSON Enoxaparin Sodium (Enoxaparin Sodium 40 Mg/0.4 Ml Syringe) 40 mg SUBCUT Q24H [facility] Last Admin: 01/06/22 16:47 Dose: 40 mg Documented By: DULCE Famotidine (Famotidine/Pf 20 Mg/2 Ml Vial) 20 mg IVPUSH DAILY [facility] Last Admin: 01/07/22 08:45 Dose: 20 mg Documented By: GERSON Loperamide HCl (Loperamide Hcl 2 Mg Capsule) 2 mg PO QID [facility] Last Admin: 01/07/22 12:32 Dose: 2 mg Documented By: RUDDY-MILTON Loperamide HCl (Loperamide Hcl 2 Mg Capsule) 2 mg PO Q4H PRN PRN Reason: Diarrhea Metoprolol Tartrate (Metoprolol Tartrate 12.5 Mg Halftab) 12.5 mg PO BID [facility]; Protocol Last Admin: 01/07/22 08:44 Dose: 12.5 mg Documented By: RUDDY-MILTON Midodrine (Midodrine Hcl 5 Mg Tablet) 5 mg PO TID [facility] Last Admin: 01/07/22 08:45 Dose: 5 mg Documented By: GERSON Ondansetron HCl (Ondansetron Hcl 4 Mg/2 Ml Vial) 4 mg IVPUSH Q8H PRN PRN Reason: Nausea and Vomiting Last Admin: 12/31/21 21:36 Dose: 4 mg Documented By: DEIRDRE Pharmacy Consult (Consult Rx Perform Med Rec) 1 each MISCELLANE ONCE PRN PRN Reason: Consult order Sodium Chloride (0.9 % Sodium Chloride Flush 3 Ml Syringe) 3 ml IVFLUSH QSHIFT [facility] Last Admin: 01/07/22 07:40 Dose: Not Given Documented By: GERSON Non-Admin Reason: assessed Labs CBC & Chem 7: 01/03/22 06:15 01/07/22 08:16 Labs: Laboratory Results - last 24 hr 01/03/22 01/06/22 01/06/22 06:15 14:15 14:15 Anion Gap Estim Creat Clear Calc Estimated GFR Random Glucose Osmolality Calcium Urine Osmolality 754 Ur Random Sodium < 20.0 Urine Creatinine 188.43 COVID-19 ([facility]) COVID-19 Clin Com Hepatitis A IgM Ab Nonreactive 01/07/22 01/07/22 01/07/22 08:16 08:16 08:50 Anion Gap 10 L Estim Creat Clear Calc 95.8 Estimated GFR > 60 Random Glucose 88 Osmolality 276 L Calcium 7.8 L Urine Osmolality Ur Random Sodium Urine Creatinine COVID-19 ([facility]) Negative COVID-19 Clin Com See Note Hepatitis A IgM Ab Procedures Date of Service Date of Service: 01/07/22 Progress Note: A&P Assessment and plan (1) Colostomy in place: Status: Acute Assessment and Plan: Has CANDELARIO drain, difficult to removed Plan to remove the CANDELARIO drain under anesthesia This may need laparoscopy and possible conversion to open Explained the technique of this procedure. I reviewed the risks including but not limited to bleeding, infections, bowel injury, anesthesia risks He says that he wants to proceed Will be added to the OR schedule tomorrow Retested for COVID today - negative this time Family aware Time Spent With Patient Time: Total time spent is greater than 50% in coordination of care (as documented) at patient's floor/unit and/or counseling patient: Quality Stroke Does the patient have a stroke diagnosis?: No VTE Prior VTE?: No VTE Risk Level:: Medical - moderate - high VTE Device Contraindication: Treatment Not Indicated VTE Drug Contraindication: N/A - Med Ordered
--- NOTE | 2022-01-07 13:51 | HO.PM.IMPN ---
Subjective Subjective Date of Service: 01/07/22 Interval History: resting comfortably offers no acute complaints, denies nausea vomiting, no abdominal pain, denies lightheadedness dizziness no other acute events overnight. Minimal output and CANDELARIO drain, colostomy functioning fine. 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[employer] no headache no dizziness CVS no chest pain, no palpitation respiratory no cough, no shortness of breath Review of Systems: Yes all other systems are reviewed and are negative Physical Exam Vital Signs: Vital Signs: Last Vital Signs Temp 97.8 F 01/07/22 11:38 Pulse 91 01/07/22 12:16 Resp 18 01/07/22 11:38 BP 77/52 L 01/07/22 12:16 Pulse Ox 100 01/07/22 11:38 O2 Del Method 01/07/22 11:38 O2 Flow Rate 98 01/05/22 00:00 BMI result Body Mass Index 19.5 Const: Other: Constitutional : frail appearing, a wake alert in no d istress Neck : Nor mal inspection, n o JVD Cardiovascul ar : RRR, Respira tory : clear to a uscultate? no crac kles, wheezes or r honchi Gastrointes tinal:? soft, Norm al bowel sounds, N on tender, ostomy in place with less liquidy stool , CANDELARIO drain with sma ll amount of serou s fluid Skin : War m, Dry Neurologica l : Alert & orient ed x3, No focal de ficit , CN 2-12 wi thin normal psych appropriate affect Objective Data Active Medications Acetaminophen (Acetaminophen 325 Mg Tablet) 650 mg PO Q6H PRN PRN Reason: Pain, Mild (Pain Scale 1-3) Ascorbic Acid (Ascorbic Acid 500 Mg Tablet) 500 mg PO DAILY [facility] Last Admin: 01/07/22 08:45 Dose: 500 mg Documented By: GERSON Enoxaparin Sodium (Enoxaparin Sodium 40 Mg/0.4 Ml Syringe) 40 mg SUBCUT Q24H [facility] Last Admin: 01/06/22 16:47 Dose: 40 mg Documented By: DULCE Famotidine (Famotidine/Pf 20 Mg/2 Ml Vial) 20 mg IVPUSH DAILY [facility] Last Admin: 01/07/22 08:45 Dose: 20 mg Documented By: GERSON Loperamide HCl (Loperamide Hcl 2 Mg Capsule) 2 mg PO QID [facility] Last Admin: 01/07/22 12:32 Dose: 2 mg Documented By: GERSON Loperamide HCl (Loperamide Hcl 2 Mg Capsule) 2 mg PO Q4H PRN PRN Reason: Diarrhea Metoprolol Tartrate (Metoprolol Tartrate 12.5 Mg Halftab) 12.5 mg PO BID [facility]; Protocol Last Admin: 01/07/22 08:44 Dose: 12.5 mg Documented By: GERSON Midodrine (Midodrine Hcl 5 Mg Tablet) 5 mg PO TID [facility] Last Admin: 01/07/22 08:45 Dose: 5 mg Documented By: GERSON Ondansetron HCl (Ondansetron Hcl 4 Mg/2 Ml Vial) 4 mg IVPUSH Q8H PRN PRN Reason: Nausea and Vomiting Last Admin: 12/31/21 21:36 Dose: 4 mg Documented By: DEIRDRE Pharmacy Consult (Consult Rx Perform Med Rec) 1 each MISCELLANE ONCE PRN PRN Reason: Consult order Sodium Chloride (0.9 % Sodium Chloride Flush 3 Ml Syringe) 3 ml IVFLUSH QSHIFT [facility] Last Admin: 01/07/22 07:40 Dose: Not Given Documented By: GERSON Non-Admin Reason: assessed Labs CBC & Chem 7: 01/03/22 06:15 01/07/22 08:16 Labs: Laboratory Results - last 24 hr 01/03/22 01/06/22 01/06/22 06:15 14:15 14:15 Anion Gap Estim Creat Clear Calc Estimated GFR Random Glucose Osmolality Calcium Urine Osmolality 754 Ur Random Sodium < 20.0 Urine Creatinine 188.43 COVID-19 (JAS) COVID-19 Clin Com Hepatitis A IgM Ab Nonreactive 01/07/22 01/07/22 01/07/22 08:16 08:16 08:50 Anion Gap 10 L Estim Creat Clear Calc 95.8 Estimated GFR > 60 Random Glucose 88 Osmolality 276 L Calcium 7.8 L Urine Osmolality Ur Random Sodium Urine Creatinine COVID-19 (JAS) Negative COVID-19 Clin Com See Note Hepatitis A IgM Ab Assessment and Plan (1) High output ileostomy: Status: Acute (2) COVID-19 virus infection: Status: Acute (3) Nonsustained ventricular tachycardia: Status: Acute (4) Metabolic acidosis: Status: Acute Plan 71 years old male with PMH of renal cancer, colon cancer post colon resection and ostomy who presents to the hospital complaining of increase weakness, decreased oral intake and increased output through the colostomy. 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 no recurrent episode of PVC and non sustained V-tach Hyponatremia. sodium improved and stable around 134 Increased ostomy output. resolved, stools more solid now cdif negative , status post IV fluid, continue Imodium scheduled surgery following. orthostatic hypotension. better cont.midodrine , IV fluid 80 cc/hour of systolic BP drops below 100 secondary to increased ostomy output/dehydration being followed by Nephrology cortisol ordered Metabolic acidosis. resolved , status post iv soda bicarb related to increased GI losses monitor BMP chest pain. Resolved ,seems more GI in nature EKG without ischemic changes,trops flat COVID-19 infection repeat CXR unremarkable. Oxygen saturation 99% on room air, repeat COVID test negative NSVT Noted in emergency, no recurrent episode patient remained asymptomatic seen by Cardiology, recommend outpatient echocardiogram and possible outpatient stress test after COVID-19 resolved Continue low-dose metoprolol Transaminitis. Trending down likely from viral illness RUQ US showing nothing acute hepatitis screen negative Pseudo hypocalcemia From low albumin continue to monitor, no treatment needed Moderate protein calorie malnutrition BMI 19.5 supplements added DVT PPX- Lovenox Dispo - PT rec STR Patient requires continued hospitalization since scheduled to have removal of CANDELARIO drain under anaesthesia tomorrow, and for persistent orthostatic hypotension . Quality Stroke Does the patient have a stroke diagnosis?: No VTE Prior VTE?: No VTE Risk Level:: Medical - moderate - high VTE Device Contraindication: Treatment Not Indicated VTE Drug Contraindication: N/A - Med Ordered
--- NOTE | 2022-01-07 15:58 | PC.NURSE ---
Addendum entered by Bro Hall RN 01/07/22 17:11: per ok to give lovenox d/t OR tomorrow Original Note: Confirmed with OR that pt is scheduled to go to OR for tube removal tomorrow. spoke with pt at bedside multiple times this shift. Pt able to ambulate with standby assist, does not c/o dizziness or lightheadedness; steady gait. Call villatoro within reach. Safety and fall precautions in place. Isolation precautions in place. Covid swab obtained as ordered.
[2022-01-07] MEDS: Enoxaparin Sodium 40 MG/0.4 ML SYRINGE SUBCUT (17:11)
[2022-01-07] MEDS: 0.9 % Sodium Chloride Flush 3 ML SYRINGE IVFLUSH (20:23)
[2022-01-08] VITALS (18 sets, daily range): BP systolic 75–147; BP diastolic 45–71; PULSE 55–103; RESP 15–18; TEMP 1.6–37.6; O2SAT 97–100
[2022-01-08 07:52] LABS: Alanine Aminotransferase 74 U/L (0-40); Albumin Level 2.4 g/dL (3.5-5.0); Alkaline Phosphatase 180 U/L (39-117); Anion Gap 9 (12-20); Aspartate Amino Transferase 45 U/L (5-37); Bilirubin Direct 0.3 mg/dL (0.0-0.5); Bilirubin Total 0.5 mg/dL (0.0-1.0); Blood Urea Nitrogen 16 mg/dL (9-16); Calcium 7.9 mg/dL (8.4-10.2); Carbon Dioxide 25 mmol/L (22-29); Chloride 103 mmol/L (96-108); Creatinine Clr Calc Pharmacy 104.9; Estimated Glomerular Filt Rate > 60; Glucose Random 81 mg/dL (60-115); Potassium 3.3 mmol/L (3.3-5.1); Sodium 134 mmol/L (135-145); Total Protein 4.2 g/dL (6.5-8.0)
[2022-01-08] MEDS: Famotidine/PF 20 MG/2 ML VIAL IVPUSH (08:34)
[2022-01-08] MEDS: 0.9 % Sodium Chloride Flush 3 ML SYRINGE IVFLUSH ×3 (08:35→20:37)
[2022-01-08] MEDS: Loperamide HCl 2 MG CAPSULE PO ×4 (08:36→20:37)
[2022-01-08] MEDS: Midodrine HCl 5 MG TABLET PO ×3 (08:36→20:37)
[2022-01-08] MEDS: Metoprolol Tartrate 12.5 MG HALFTAB PO ×2 (08:36→20:37)
--- NOTE | 2022-01-08 10:03 | HO.ANESPROP2 ---
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) COVID-19 virus infection (Acute) Nonsustained ventricular tachycardia (Acute) Acute dehydration (Acute) Lacunar infarction (Acute) Pituitary lesion (Acute) Loss of hearing (Acute) Rectal cancer metastasized to intra-abdominal lymph node (Acute) S/P colon resection (Acute) Kidney mass (Acute) [place]-vesical fistula (Acute) HTN (hypertension) (Acute) Renal cancer (Acute) Pulmonary nodule (Acute) History of tobacco use (Acute) No pertinent past medical history (Acute) Abdominal pain (Acute) Rectal fistula (Acute) Past Medical History Medical History Colonic mass No family history of cancer Family History Family History Mother Parkinsons disease Father ESRD (end stage renal disease) Other No family history of cancer Family history of problems with anesthesia: No Surgical History Surgical History History of surgery History of Problems with Anesthesia: No Social History Social History Household Members: Spouse and Children Housing: House Do you presently have visiting nurse or other home services: No Alcohol intake: former Patient Tobacco Use Status: Former Tobacco user Years Smoked: quit 1989 e-Cigarette/Vaping Use: Never Used Second Hand Smoke Exposure: No service: Yes (1969- ) Current occupational status: employed and retired Meds Allergies Allergy/AdvReac Type Severity Reaction Status Date / Time No Known Allergies Allergy Verified 12/03/21 14:09 Active Medications: Current Medications Acetaminophen (Acetaminophen 325 Mg Tablet) 650 mg PO Q6H PRN PRN Reason: Pain, Mild (Pain Scale 1-3) Ascorbic Acid (Ascorbic Acid 500 Mg Tablet) 500 mg PO DAILY [facility] Last Admin: 01/08/22 08:36 Dose: Not Given Enoxaparin Sodium (Enoxaparin Sodium 40 Mg/0.4 Ml Syringe) 40 mg SUBCUT Q24H [facility] Last Admin: 01/07/22 17:11 Dose: 40 mg Famotidine (Famotidine/Pf 20 Mg/2 Ml Vial) 20 mg IVPUSH DAILY [facility] Last Admin: 01/08/22 08:34 Dose: 20 mg Fentanyl (Fentanyl Citrate/Pf 100 Mcg/2 Ml Vial) 25 mcg IVPUSH Q5M PRN; Protocol PRN Reason: Pain, Moderate (Pain Scale 4-6 Lidocaine HCl (Lidocaine Hcl 1 % Mpf 5 Ml Vial) Confirm Administered Dose 5 ml .ROUTE .STK-MED ONE Stop: 01/08/22 10:02 Loperamide HCl (Loperamide Hcl 2 Mg Capsule) 2 mg PO QID [facility] Last Admin: 01/08/22 08:36 Dose: 2 mg Loperamide HCl (Loperamide Hcl 2 Mg Capsule) 2 mg PO Q4H PRN PRN Reason: Diarrhea Metoprolol Tartrate (Metoprolol Tartrate 12.5 Mg Halftab) 12.5 mg PO BID [facility]; Protocol Last Admin: 01/08/22 08:36 Dose: 12.5 mg Midodrine (Midodrine Hcl 5 Mg Tablet) 5 mg PO TID [facility] Last Admin: 01/08/22 08:36 Dose: 5 mg Ondansetron HCl (Ondansetron Hcl 4 Mg/2 Ml Vial) 4 mg IVPUSH Q8H PRN PRN Reason: Nausea and Vomiting Last Admin: 12/31/21 21:36 Dose: 4 mg Ondansetron HCl (Ondansetron Hcl 4 Mg/2 Ml Vial) 4 mg IVPUSH ONCE PRN PRN Reason: Nausea and Vomiting Pharmacy Consult (Consult Rx Perform Med Rec) 1 each MISCELLANE ONCE PRN PRN Reason: Consult order Sodium Chloride (0.9 % Sodium Chloride Flush 3 Ml Syringe) 3 ml IVFLUSH QSHIFT [facility] Last Admin: 01/08/22 08:35 Dose: 3 ml Home Medications Medication Instructions Recorded Confirmed Last Taken Type ascorbate calcium (vitamin C) 500 500 mg PO DAILY 10/09/21 12/30/21 Unknown History mg tablet ferrous sulfate 325 mg (65 mg 325 mg PO DAILY 10/09/21 12/30/21 Unknown History iron) tablet Exam Exam Date and Time: January 08, 2022 1003 Height,Weight and Vital Signs: Height 6 ft 2 in Weight 69 kg Last Vital Signs Temp 98.5 F 01/08/22 07:50 Pulse 103 H 01/08/22 09:50 Resp 16 01/08/22 07:50 BP 75/45 L 01/08/22 09:50 Pulse Ox 98 01/08/22 07:50 O2 Del Method 01/08/22 07:50 O2 Flow Rate 98 01/05/22 00:00 Pertinent Lab Results Pertinent Lab Results: Laboratory Tests 12/30/21 12/30/21 12/30/21 11:37 11:38 11:38 WBC 6.5 RBC 5.57 Hgb 14.9 Hct 46.6 MCV 83.7 MCH 26.8 L MCHC 32.0 RDW 18.9 H Plt Count 313 MPV 9.4 Immature Gran % (Auto) 0.6 H Neut % (Auto) 58.9 Lymph % (Auto) 26.3 [place] % (Auto) 13.5 H Eos % (Auto) 0.2 Baso % (Auto) 0.5 Lymph # (Auto) 1.7 [place] # (Auto) 0.9 Eos # (Auto) 0.0 Baso # (Auto) 0.0 Abs Immat Gran (auto) 0.04 H Absolute Neuts (auto) 3.8 Absolute Nucleated RBC 0.000 Nucleated RBC % (auto) 0.0 Sodium Potassium Chloride Carbon Dioxide Anion Gap BUN Creatinine Estim Creat Clear Calc Estimated GFR Random Glucose Osmolality Calcium Magnesium Total Bilirubin Direct Bilirubin AST ALT Alkaline Phosphatase Lactate Dehydrogenase Troponin I High Sens 16.9 C-Reactive Protein B-Natriuretic Peptide Total Protein Albumin Lipase Urine Color Urine Appearance Urine pH Ur Specific [place] Urine Protein Urine Glucose (UA) Urine Ketones Urine Blood Urine Nitrite Ur Leukocyte Esterase Urine RBC Urine WBC Ur Squamous Epith Cells Ur Renal Epithelial Cell Urine Bacteria Hyaline Casts Urine Mucus Urine Osmolality Ur Random Sodium Urine Creatinine C. difficile Tox B Gene COVID-19 (JAS) COVID-19 Clin Com Hepatitis A IgM Ab Hep Bs Antigen Hep Bs Antibody Hep B Core Total Ab Hepatitis C Ab (EIA) Influenza Type A (PCR) NEGATIVE Influenza Type B (PCR) NEGATIVE RSV RNA Qual (PCR) NEGATIVE SARS-CoV-2 RNA (RT-PCR) POSITIVE A 12/30/21 12/30/21 12/30/21 11:38 12:00 16:07 WBC RBC Hgb Hct MCV MCH MCHC RDW Plt Count MPV Immature Gran % (Auto) Neut % (Auto) Lymph % (Auto) [place] % (Auto) Eos % (Auto) Baso % (Auto) Lymph # (Auto) [place] # (Auto) Eos # (Auto) Baso # (Auto) Abs Immat Gran (auto) Absolute Neuts (auto) Absolute Nucleated RBC Nucleated RBC % (auto) Sodium 137 Potassium 4.6 Chloride 103 Carbon Dioxide 25 Anion Gap 14 BUN 22 H Creatinine 1.14 Estim Creat Clear Calc 56.4 Estimated GFR > 60 Random Glucose 144 H Osmolality Calcium 9.1 Magnesium 2.1 Total Bilirubin 1.1 H Direct Bilirubin 0.7 H AST 58 H ALT 92 H Alkaline Phosphatase 171 H Lactate Dehydrogenase Troponin I High Sens C-Reactive Protein B-Natriuretic Peptide 24 Total Protein 5.0 L Albumin 3.1 L Lipase 34 Urine Color Urine Appearance Urine pH Ur Specific [place] Urine Protein Urine Glucose (UA) Urine Ketones Urine Blood Urine Nitrite Ur Leukocyte Esterase Urine RBC Urine WBC Ur Squamous Epith Cells Ur Renal Epithelial Cell Urine Bacteria Hyaline Casts Urine Mucus Urine Osmolality Ur Random Sodium Urine Creatinine C. difficile Tox B Gene NEGATIVE COVID-19 (JAS) COVID-19 Clin Com Hepatitis A IgM Ab Hep Bs Antigen Hep Bs Antibody Hep B Core Total Ab Hepatitis C Ab (EIA) Influenza Type A (PCR) Influenza Type B (PCR) RSV RNA Qual (PCR) SARS-CoV-2 RNA (RT-PCR) 12/30/21 12/31/21 12/31/21 22:04 07:41 07:41 WBC 7.0 RBC 5.14 Hgb 13.9 L Hct 43.5 MCV 84.6 MCH 27.0 MCHC 32.0 RDW 18.7 H Plt Count 331 MPV 9.3 L Immature Gran % (Auto) Neut % (Auto) Lymph % (Auto) [place] % (Auto) Eos % (Auto) Baso % (Auto) Lymph # (Auto) [place] # (Auto) Eos # (Auto) Baso # (Auto) Abs Immat Gran (auto) Absolute Neuts (auto) Absolute Nucleated RBC 0.000 Nucleated RBC % (auto) 0.0 Sodium 136 Potassium 4.4 Chloride 104 Carbon Dioxide 23 Anion Gap 13 BUN 26 H Creatinine 1.07 Estim Creat Clear Calc 61.7 Estimated GFR > 60 Random Glucose 114 Osmolality Calcium 8.1 L D Magnesium Total Bilirubin Direct Bilirubin AST ALT Alkaline Phosphatase Lactate Dehydrogenase Troponin I High Sens C-Reactive Protein B-Natriuretic Peptide Total Protein Albumin Lipase Urine Color DK YELLOW Urine Appearance CLEAR Urine pH 6.0 Ur Specific [place] >= 1.030 H Urine Protein 1+ H Urine Glucose (UA) NEG Urine Ketones NEG Urine Blood NEG Urine Nitrite NEG Ur Leukocyte Esterase NEG Urine RBC 1-4 Urine WBC 0-2 Ur Squamous Epith Cells 3+ Ur Renal Epithelial Cell 1+ Urine Bacteria 1+ Hyaline Casts 5-9 Urine Mucus 3+ Urine Osmolality Ur Random Sodium Urine Creatinine C. difficile Tox B Gene COVID-19 (JAS) COVID-19 Clin Com Hepatitis A IgM Ab Hep Bs Antigen Hep Bs Antibody Hep B Core Total Ab Hepatitis C Ab (EIA) Influenza Type A (PCR) Influenza Type B (PCR) RSV RNA Qual (PCR) SARS-CoV-2 RNA (RT-PCR) 12/31/21 01/01/22 01/01/22 07:41 06:40 06:40 WBC 8.3 RBC 5.48 Hgb 14.9 Hct 48.6 MCV 88.7 MCH 27.2 MCHC 30.7 L RDW 19.9 H Plt Count 329 MPV 9.2 L Immature Gran % (Auto) Neut % (Auto) Lymph % (Auto) [place] % (Auto) Eos % (Auto) Baso % (Auto) Lymph # (Auto) [place] # (Auto) Eos # (Auto) Baso # (Auto) Abs Immat Gran (auto) Absolute Neuts (auto) Absolute Nucleated RBC 0.000 Nucleated RBC % (auto) 0.0 Sodium 133 L Potassium 4.7 Chloride 107 Carbon Dioxide 18 L Anion Gap 13 BUN 25 H Creatinine 1.02 Estim Creat Clear Calc 64.8 Estimated GFR > 60 Random Glucose 122 H Osmolality Calcium 8.1 L Magnesium Total Bilirubin Direct Bilirubin AST ALT Alkaline Phosphatase Lactate Dehydrogenase Troponin I High Sens 10.6 C-Reactive Protein B-Natriuretic Peptide Total Protein Albumin Lipase Urine Color Urine Appearance Urine pH Ur Specific [place] Urine Protein Urine Glucose (UA) Urine Ketones Urine Blood Urine Nitrite Ur Leukocyte Esterase Urine RBC Urine WBC Ur Squamous Epith Cells Ur Renal Epithelial Cell Urine Bacteria Hyaline Casts Urine Mucus Urine Osmolality Ur Random Sodium Urine Creatinine C. difficile Tox B Gene COVID-19 (JAS) COVID-19 Clin Com Hepatitis A IgM Ab Hep Bs Antigen Hep Bs Antibody Hep B Core Total Ab Hepatitis C Ab (EIA) Influenza Type A (PCR) Influenza Type B (PCR) RSV RNA Qual (PCR) SARS-CoV-2 RNA (RT-PCR) 01/01/22 01/02/22 01/02/22 06:40 06:25 08:49 WBC RBC Hgb Hct MCV MCH MCHC RDW Plt Count MPV Immature Gran % (Auto) Neut % (Auto) Lymph % (Auto) [place] % (Auto) Eos % (Auto) Baso % (Auto) Lymph # (Auto) [place] # (Auto) Eos # (Auto) Baso # (Auto) Abs Immat Gran (auto) Absolute Neuts (auto) Absolute Nucleated RBC Nucleated RBC % (auto) Sodium 132 L Potassium 4.6 Chloride 107 Carbon Dioxide 13 L Anion Gap 17 BUN 35 H Creatinine 1.18 Estim Creat Clear Calc 56.0 Estimated GFR > 60 Random Glucose 145 H Osmolality Calcium 8.2 L Magnesium Total Bilirubin 0.9 Direct Bilirubin 0.4 AST 100 H ALT 136 H Alkaline Phosphatase 204 H Lactate Dehydrogenase 376 H Troponin I High Sens 10.8 C-Reactive Protein 1.33 H B-Natriuretic Peptide Total Protein 4.8 L Albumin 2.7 L Lipase Urine Color Urine Appearance Urine pH Ur Specific [place] Urine Protein Urine Glucose (UA) Urine Ketones Urine Blood Urine Nitrite Ur Leukocyte Esterase Urine RBC Urine WBC Ur Squamous Epith Cells Ur Renal Epithelial Cell Urine Bacteria Hyaline Casts Urine Mucus Urine Osmolality Ur Random Sodium Urine Creatinine C. difficile Tox B Gene COVID-19 (JAS) COVID-19 Clin Com Hepatitis A IgM Ab Hep Bs Antigen Hep Bs Antibody Hep B Core Total Ab Hepatitis C Ab (EIA) Influenza Type A (PCR) Influenza Type B (PCR) RSV RNA Qual (PCR) SARS-CoV-2 RNA (RT-PCR) 01/03/22 01/03/22 01/03/22 06:15 06:15 06:15 WBC 9.5 RBC 4.90 Hgb 13.3 L Hct 40.9 L MCV 83.5 D MCH 27.1 MCHC 32.5 RDW 19.9 H Plt Count 352 MPV 9.0 L Immature Gran % (Auto) Neut % (Auto) Lymph % (Auto) [place] % (Auto) Eos % (Auto) Baso % (Auto) Lymph # (Auto) [place] # (Auto) Eos # (Auto) Baso # (Auto) Abs Immat Gran (auto) Absolute Neuts (auto) Absolute Nucleated RBC 0.000 Nucleated RBC % (auto) 0.0 Sodium 133 L Potassium 3.3 D Chloride 104 Carbon Dioxide 21 L Anion Gap 11 L BUN 29 H Creatinine 0.83 Estim Creat Clear Calc 79.6 Estimated GFR > 60 Random Glucose 110 Osmolality Calcium 7.8 L Magnesium Total Bilirubin 1.0 Direct Bilirubin 0.5 AST 74 H ALT 116 H Alkaline Phosphatase 194 H Lactate Dehydrogenase Troponin I High Sens C-Reactive Protein B-Natriuretic Peptide Total Protein 4.2 L Albumin 2.6 L Lipase Urine Color Urine Appearance Urine pH Ur Specific [place] Urine Protein Urine Glucose (UA) Urine Ketones Urine Blood Urine Nitrite Ur Leukocyte Esterase Urine RBC Urine WBC Ur Squamous Epith Cells Ur Renal Epithelial Cell Urine Bacteria Hyaline Casts Urine Mucus Urine Osmolality Ur Random Sodium Urine Creatinine C. difficile Tox B Gene COVID-19 (JAS) COVID-19 Clin Com Hepatitis A IgM Ab Nonreactive Hep Bs Antigen Negative Hep Bs Antibody NONREACTIVE Hep B Core Total Ab Nonreactive Hepatitis C Ab (EIA) Nonreactive Influenza Type A (PCR) Influenza Type B (PCR) RSV RNA Qual (PCR) SARS-CoV-2 RNA (RT-PCR) 01/04/22 01/04/22 01/05/22 05:55 05:55 06:56 WBC RBC Hgb Hct MCV MCH MCHC RDW Plt Count MPV Immature Gran % (Auto) Neut % (Auto) Lymph % (Auto) [place] % (Auto) Eos % (Auto) Baso % (Auto) Lymph # (Auto) [place] # (Auto) Eos # (Auto) Baso # (Auto) Abs Immat Gran (auto) Absolute Neuts (auto) Absolute Nucleated RBC Nucleated RBC % (auto) Sodium 131 L 132 L Potassium 3.3 2.8 L Chloride 102 102 Carbon Dioxide 22 22 Anion Gap 10 L 11 L BUN 25 H 23 H Creatinine 0.78 0.70 Estim Creat Clear Calc 84.7 94.4 Estimated GFR > 60 > 60 Random Glucose 97 97 Osmolality Calcium 7.8 L 7.8 L Magnesium Total Bilirubin 1.0 Direct Bilirubin 0.6 H AST 66 H ALT 107 H Alkaline Phosphatase 190 H Lactate Dehydrogenase Troponin I High Sens C-Reactive Protein B-Natriuretic Peptide Total Protein 4.0 L Albumin 2.5 L Lipase Urine Color Urine Appearance Urine pH Ur Specific [place] Urine Protein Urine Glucose (UA) Urine Ketones Urine Blood Urine Nitrite Ur Leukocyte Esterase Urine RBC Urine WBC Ur Squamous Epith Cells Ur Renal Epithelial Cell Urine Bacteria Hyaline Casts Urine Mucus Urine Osmolality Ur Random Sodium Urine Creatinine C. difficile Tox B Gene COVID-19 (JAS) COVID-19 Clin Com Hepatitis A IgM Ab Hep Bs Antigen Hep Bs Antibody Hep B Core Total Ab Hepatitis C Ab (EIA) Influenza Type A (PCR) Influenza Type B (PCR) RSV RNA Qual (PCR) SARS-CoV-2 RNA (RT-PCR) 01/06/22 01/06/22 01/06/22 09:39 14:15 14:15 WBC RBC Hgb Hct MCV MCH MCHC RDW Plt Count MPV Immature Gran % (Auto) Neut % (Auto) Lymph % (Auto) [place] % (Auto) Eos % (Auto) Baso % (Auto) Lymph # (Auto) [place] # (Auto) Eos # (Auto) Baso # (Auto) Abs Immat Gran (auto) Absolute Neuts (auto) Absolute Nucleated RBC Nucleated RBC % (auto) Sodium 136 Potassium 3.8 D Chloride 102 Carbon Dioxide 24 Anion Gap 14 BUN 18 H Creatinine 0.77 Estim Creat Clear Calc 85.8 Estimated GFR > 60 Random Glucose 99 Osmolality Calcium 8.0 L Magnesium Total Bilirubin Direct Bilirubin AST ALT Alkaline Phosphatase Lactate Dehydrogenase Troponin I High Sens C-Reactive Protein B-Natriuretic Peptide Total Protein Albumin Lipase Urine Color Urine Appearance Urine pH Ur Specific [place] Urine Protein Urine Glucose (UA) Urine Ketones Urine Blood Urine Nitrite Ur Leukocyte Esterase Urine RBC Urine WBC Ur Squamous Epith Cells Ur Renal Epithelial Cell Urine Bacteria Hyaline Casts Urine Mucus Urine Osmolality 754 Ur Random Sodium < 20.0 Urine Creatinine 188.43 C. difficile Tox B Gene COVID-19 (JAS) COVID-19 Clin Com Hepatitis A IgM Ab Hep Bs Antigen Hep Bs Antibody Hep B Core Total Ab Hepatitis C Ab (EIA) Influenza Type A (PCR) Influenza Type B (PCR) RSV RNA Qual (PCR) SARS-CoV-2 RNA (RT-PCR) 01/07/22 01/07/22 01/07/22 08:16 08:16 08:50 WBC RBC Hgb Hct MCV MCH MCHC RDW Plt Count MPV Immature Gran % (Auto) Neut % (Auto) Lymph % (Auto) [place] % (Auto) Eos % (Auto) Baso % (Auto) Lymph # (Auto) [place] # (Auto) Eos # (Auto) Baso # (Auto) Abs Immat Gran (auto) Absolute Neuts (auto) Absolute Nucleated RBC Nucleated RBC % (auto) Sodium 134 L Potassium 3.6 Chloride 103 Carbon Dioxide 25 Anion Gap 10 L BUN 16 Creatinine 0.69 Estim Creat Clear Calc 95.8 Estimated GFR > 60 Random Glucose 88 Osmolality 276 L Calcium 7.8 L Magnesium Total Bilirubin Direct Bilirubin AST ALT Alkaline Phosphatase Lactate Dehydrogenase Troponin I High Sens C-Reactive Protein B-Natriuretic Peptide Total Protein Albumin Lipase Urine Color Urine Appearance Urine pH Ur Specific [place] Urine Protein Urine Glucose (UA) Urine Ketones Urine Blood Urine Nitrite Ur Leukocyte Esterase Urine RBC Urine WBC Ur Squamous Epith Cells Ur Renal Epithelial Cell Urine Bacteria Hyaline Casts Urine Mucus Urine Osmolality Ur Random Sodium Urine Creatinine C. difficile Tox B Gene COVID-19 (JAS) Negative COVID-19 Clin Com See Note Hepatitis A IgM Ab Hep Bs Antigen Hep Bs Antibody Hep B Core Total Ab Hepatitis C Ab (EIA) Influenza Type A (PCR) Influenza Type B (PCR) RSV RNA Qual (PCR) SARS-CoV-2 RNA (RT-PCR) 01/08/22 06:57 WBC RBC Hgb Hct MCV MCH MCHC RDW Plt Count MPV Immature Gran % (Auto) Neut % (Auto) Lymph % (Auto) [place] % (Auto) Eos % (Auto) Baso % (Auto) Lymph # (Auto) [place] # (Auto) Eos # (Auto) Baso # (Auto) Abs Immat Gran (auto) Absolute Neuts (auto) Absolute Nucleated RBC Nucleated RBC % (auto) Sodium 134 L Potassium 3.3 Chloride 103 Carbon Dioxide 25 Anion Gap 9 L BUN 16 Creatinine 0.63 Estim Creat Clear Calc 104.9 Estimated GFR > 60 Random Glucose 81 Osmolality Calcium 7.9 L Magnesium Total Bilirubin 0.5 Direct Bilirubin 0.3 AST 45 H ALT 74 H Alkaline Phosphatase 180 H Lactate Dehydrogenase Troponin I High Sens C-Reactive Protein B-Natriuretic Peptide Total Protein 4.2 L Albumin 2.4 L Lipase Urine Color Urine Appearance Urine pH Ur Specific [place] Urine Protein Urine Glucose (UA) Urine Ketones Urine Blood Urine Nitrite Ur Leukocyte Esterase Urine RBC Urine WBC Ur Squamous Epith Cells Ur Renal Epithelial Cell Urine Bacteria Hyaline Casts Urine Mucus Urine Osmolality Ur Random Sodium Urine Creatinine C. difficile Tox B Gene COVID-19 (JAS) COVID-19 Clin Com Hepatitis A IgM Ab Hep Bs Antigen Hep Bs Antibody Hep B Core Total Ab Hepatitis C Ab (EIA) Influenza Type A (PCR) Influenza Type B (PCR) RSV RNA Qual (PCR) SARS-CoV-2 RNA (RT-PCR) Assessment and Plan Final Anesthetic Review Family History of Problems with Anesthesia: No History of Problems with Anesthesia: No
--- NOTE | 2022-01-08 11:30 | PM.PNNEP ---
Subjective Subjective Date of Service: 01/09/22 Interval history: resting comfortably offers no acute complaints, denies nausea vomiting, no abdominal pain, denies lightheadedness dizziness no other acute events overnight. Minimal output and CANDELARIO drain, colostomy functioning fine. Physical Exam Vital Signs: Vital Signs: Last Vital Signs Temp 98.5 F 01/08/22 10:40 Pulse 62 01/08/22 10:40 Resp 16 01/08/22 10:40 BP 112/56 L 01/08/22 10:40 Pulse Ox 100 01/08/22 10:40 O2 Del Method 01/08/22 10:40 O2 Flow Rate 98 01/05/22 00:00 BMI result Body Mass Index 19.5 Const: Other: frail looking but appears comfortable Resp: Effort & Inspection: able to speak in complete sentences Auscultation: no rales Cardio: Rate: regular rate Heart sounds: no rubs GI: Palpation (GI): not firm and nontender Extrem: General: Yes no pedal edema Objective Data Labs CBC & Chem 7: 01/03/22 06:15 01/08/22 06:57 Labs: Laboratory Results - last 24 hr 01/08/22 06:57 Sodium 134 L Potassium 3.3 Chloride 103 Carbon Dioxide 25 Anion Gap 9 L BUN 16 Creatinine 0.63 Estim Creat Clear Calc 104.9 Estimated GFR > 60 Random Glucose 81 Calcium 7.9 L Total Bilirubin 0.5 Direct Bilirubin 0.3 AST 45 H ALT 74 H Alkaline Phosphatase 180 H Total Protein 4.2 L Albumin 2.4 L Procedures Date of Service Date of Service: 01/08/22 Assessment & Plan Assessment and plan (1) HTN (hypertension): Status: Acute Plan Hyponatremia Orthostatic hypotension Hypokalemia Hyponatremia - DDX Hypovolemia - supported by LOW urine sodium < 20 r/o adrenal isufficiency ludin due to low BP Suggest Cortisol (ordered) IV NS @ 80 cc/hr if SBP < 100 mmHg REstrict PO water intake Replace K orally Keep Midodrine Time Spent With Patient Time: Total time spent is greater than 50% in coordination of care (as documented) at patient's floor/unit and/or counseling patient: Progress Note: Quality Stroke Does the patient have a stroke diagnosis?: No
--- NOTE | 2022-01-08 12:50 | P.OP_ITS ---
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 Had a CANDELARIO drain in place because of the repair of the bladder I had attempted to remove this CANDELARIO drain in the office about 3 weeks after but there was significant resistance. I attempted multiple times on subsequent visits but there was significant resistance with this so I decided it would be unsafe to proceed with this in the office. I told him to undergo all this drain with laparoscopy in the OR. He understood the technique of this procedure. He is worried risks, benefits, alternatives, and he has given consent. He is currently an inpatient after was admitted December 30 because of high output ostomy with dehydration. He had wanted the she had her done while he was in the hospital before he was discharged. He was brought to the operating room. He was placed supine under general anesthesia via endotracheal tube. A [place] catheter was inserted. The abdomen was prepped and draped in theusual sterile fashion. I had temporarily closed the colostomy with a Dexon 3-0 stitch to prevent this from leaking . I made an epigastric incision using blade 15. This was carried down through the full-thickness of the skin and subcutaneous fat. The fascia was incised. The peritoneum was entered. A Lior port was introduced. Pneumoperitoneum was introduced to a pressure of 15 was hg. With laparoscopic fills the rojo using the 10/30 scope, I proceeded to insert 2 5 mm ports on the right side of the abdomen via small stab incisions. The patient was placed in head-down position. Laparoscopic examination showed that there were some adhesions lower abdomen with omentum so I had lysed this with the LigaSure. There was note of matted bowel loops as well in the midline in the lower pelvic area from adhesions. Lateral to this area of matted bowel loop was note of the drain. This was encased in a very dense fibrotic tissue circumferentially. I had to do combination of blunt dissection with the [place] dissector as well as the LigaSure to carefully open up the area of dense fibrotic tissue bounding the entry point of the drain. Eventually, as able to visually identify the drain itself. Then proceeded to retract this with 1 of the graspers to bring this out into view. This still did not come out easily the because of more adhesions. We had to divide more of this fibrotic tissue surrounding the entry site. We had to be careful with this process because of the presence of bowel loops adjacent to this. Eventually by dividing more of the fibrotic tissue surrounding encasing the CANDELARIO drain, as able to pull this out completely. This appeared intact as well I examined the bowel loops are on the midline were adherent to the abdominal wall to make sure that there was no injury. There is no evidence of any bowel injury. there were no other pathology seen. No evidence of any bowel injury elsewhere with examination laparoscopically. There was note of good hemostasis. I then desufflated the port sites. I removed all ports on the vision, with the Lior port removed last. I closed the fascia of the epigastric incision with a figure-eight on 0 stitch. I closed all incisions With running Dexon 4-0 cyst subcuticular sutures.I infiltrated all incisions with Marcaine 0.5% for postop analgesia. Steri- Strips and dressings were applied. The procedure was completed . The patient tolerated the procedure well. There were no complications noted. I removed the [place] catheter. The patient was then transferred to recovery room with stable vital signs. Estimated blood loss about 10 cc. Initial and final counts of sponges and instruments were correct.
--- NOTE | 2022-01-08 13:05 | HO.ANESPROP2 ---
[facility] Active Problems Active Problems: All Active Problems (Updated 01/02/22 @ 11:57 by VITO Marin) Metabolic acidosis (Acute) Colostomy in place (Acute) High output ileostomy (Acute) COVID-19 virus infection (Acute) Nonsustained ventricular tachycardia (Acute) Acute dehydration (Acute) Lacunar infarction (Acute) Pituitary lesion (Acute) Loss of hearing (Acute) Rectal cancer metastasized to intra-abdominal lymph node (Acute) S/P colon resection (Acute) Kidney mass (Acute) [place]-vesical fistula (Acute) HTN (hypertension) (Acute) Renal cancer (Acute) Pulmonary nodule (Acute) History of tobacco use (Acute) No pertinent past medical history (Acute) Abdominal pain (Acute) Rectal fistula (Acute) Past Medical History Medical History Colonic mass No family history of cancer Family History Family History Mother Parkinsons disease Father ESRD (end stage renal disease) Other No family history of cancer Family history of problems with anesthesia: No Surgical History Surgical History History of surgery History of Problems with Anesthesia: No Social History Social History Household Members: Spouse and Children Housing: House Do you presently have visiting nurse or other home services: No Alcohol intake: former Patient Tobacco Use Status: Former Tobacco user Years Smoked: quit 1989 e-Cigarette/Vaping Use: Never Used Second Hand Smoke Exposure: No service: Yes (1969- ) Current occupational status: employed and retired Meds Allergies Allergy/AdvReac Type Severity Reaction Status Date / Time No Known Allergies Allergy Verified 12/03/21 14:09 Active Medications: Current Medications Acetaminophen (Acetaminophen 325 Mg Tablet) 650 mg PO Q6H PRN PRN Reason: Pain, Mild (Pain Scale 1-3) Ascorbic Acid (Ascorbic Acid 500 Mg Tablet) 500 mg PO DAILY [facility] Last Admin: 01/08/22 08:36 Dose: Not Given Enoxaparin Sodium (Enoxaparin Sodium 40 Mg/0.4 Ml Syringe) 40 mg SUBCUT Q24H [facility] Last Admin: 01/07/22 17:11 Dose: 40 mg Famotidine (Famotidine/Pf 20 Mg/2 Ml Vial) 20 mg IVPUSH DAILY [facility] Last Admin: 01/08/22 08:34 Dose: 20 mg Fentanyl (Fentanyl Citrate/Pf 100 Mcg/2 Ml Vial) 25 mcg IVPUSH Q5M PRN; Protocol PRN Reason: Pain, Moderate (Pain Scale 4-6 Loperamide HCl (Loperamide Hcl 2 Mg Capsule) 2 mg PO QID [facility] Last Admin: 01/08/22 08:36 Dose: 2 mg Loperamide HCl (Loperamide Hcl 2 Mg Capsule) 2 mg PO Q4H PRN PRN Reason: Diarrhea Metoprolol Tartrate (Metoprolol Tartrate 12.5 Mg Halftab) 12.5 mg PO BID [facility]; Protocol Last Admin: 01/08/22 08:36 Dose: 12.5 mg Midodrine (Midodrine Hcl 5 Mg Tablet) 5 mg PO TID [facility] Last Admin: 01/08/22 08:36 Dose: 5 mg Morphine Sulfate (Morphine Sulfate 2 Mg/Ml Cartridge) 2 mg IVPUSH Q3H PRN; Protocol PRN Reason: Pain, Severe (Pain Scale 7-10) Ondansetron HCl (Ondansetron Hcl 4 Mg/2 Ml Vial) 4 mg IVPUSH Q8H PRN PRN Reason: Nausea and Vomiting Last Admin: 12/31/21 21:36 Dose: 4 mg Ondansetron HCl (Ondansetron Hcl 4 Mg/2 Ml Vial) 4 mg IVPUSH ONCE PRN PRN Reason: Nausea and Vomiting Oxycodone HCl (Oxycodone Hcl Immed Release 5 Mg Tablet) 5 mg PO Q4H PRN PRN Reason: Pain, Moderate (Pain Scale 4-6 Pharmacy Consult (Consult Rx Perform Med Rec) 1 each MISCELLANE ONCE PRN PRN Reason: Consult order Sodium Chloride (0.9 % Sodium Chloride Flush 3 Ml Syringe) 3 ml IVFLUSH QSHIFT [facility] Last Admin: 01/08/22 08:35 Dose: 3 ml Home Medications Medication Instructions Recorded Confirmed Last Taken Type ascorbate calcium (vitamin C) 500 500 mg PO DAILY 10/09/21 12/30/21 Unknown History mg tablet ferrous sulfate 325 mg (65 mg 325 mg PO DAILY 10/09/21 12/30/21 Unknown History iron) tablet Exam Exam Date and Time: January 08, 2022 1305 Height,Weight and Vital Signs: Height 6 ft 2 in Weight 69 kg Last Vital Signs Temp 35 F L 01/08/22 12:45 Pulse 66 01/08/22 12:56 Resp 18 01/08/22 12:56 BP 140/59 H 01/08/22 12:56 Pulse Ox 100 01/08/22 12:56 O2 Del Method 01/08/22 12:56 O2 Flow Rate 4 01/08/22 12:45 Pertinent Lab Results Pertinent Lab Results: Laboratory Tests 12/30/21 12/30/21 12/30/21 11:37 11:38 11:38 WBC 6.5 RBC 5.57 Hgb 14.9 Hct 46.6 MCV 83.7 MCH 26.8 L MCHC 32.0 RDW 18.9 H Plt Count 313 MPV 9.4 Immature Gran % (Auto) 0.6 H Neut % (Auto) 58.9 Lymph % (Auto) 26.3 [place] % (Auto) 13.5 H Eos % (Auto) 0.2 Baso % (Auto) 0.5 Lymph # (Auto) 1.7 [place] # (Auto) 0.9 Eos # (Auto) 0.0 Baso # (Auto) 0.0 Abs Immat Gran (auto) 0.04 H Absolute Neuts (auto) 3.8 Absolute Nucleated RBC 0.000 Nucleated RBC % (auto) 0.0 Sodium Potassium Chloride Carbon Dioxide Anion Gap BUN Creatinine Estim Creat Clear Calc Estimated GFR Random Glucose Osmolality Calcium Magnesium Total Bilirubin Direct Bilirubin AST ALT Alkaline Phosphatase Lactate Dehydrogenase Troponin I High Sens 16.9 C-Reactive Protein B-Natriuretic Peptide Total Protein Albumin Lipase Urine Color Urine Appearance Urine pH Ur Specific [place] Urine Protein Urine Glucose (UA) Urine Ketones Urine Blood Urine Nitrite Ur Leukocyte Esterase Urine RBC Urine WBC Ur Squamous Epith Cells Ur Renal Epithelial Cell Urine Bacteria Hyaline Casts Urine Mucus Urine Osmolality Ur Random Sodium Urine Creatinine C. difficile Tox B Gene COVID-19 (JAS) COVID-19 Clin Com Hepatitis A IgM Ab Hep Bs Antigen Hep Bs Antibody Hep B Core Total Ab Hepatitis C Ab (EIA) Influenza Type A (PCR) NEGATIVE Influenza Type B (PCR) NEGATIVE RSV RNA Qual (PCR) NEGATIVE SARS-CoV-2 RNA (RT-PCR) POSITIVE A 12/30/21 12/30/21 12/30/21 11:38 12:00 16:07 WBC RBC Hgb Hct MCV MCH MCHC RDW Plt Count MPV Immature Gran % (Auto) Neut % (Auto) Lymph % (Auto) [place] % (Auto) Eos % (Auto) Baso % (Auto) Lymph # (Auto) [place] # (Auto) Eos # (Auto) Baso # (Auto) Abs Immat Gran (auto) Absolute Neuts (auto) Absolute Nucleated RBC Nucleated RBC % (auto) Sodium 137 Potassium 4.6 Chloride 103 Carbon Dioxide 25 Anion Gap 14 BUN 22 H Creatinine 1.14 Estim Creat Clear Calc 56.4 Estimated GFR > 60 Random Glucose 144 H Osmolality Calcium 9.1 Magnesium 2.1 Total Bilirubin 1.1 H Direct Bilirubin 0.7 H AST 58 H ALT 92 H Alkaline Phosphatase 171 H Lactate Dehydrogenase Troponin I High Sens C-Reactive Protein B-Natriuretic Peptide 24 Total Protein 5.0 L Albumin 3.1 L Lipase 34 Urine Color Urine Appearance Urine pH Ur Specific [place] Urine Protein Urine Glucose (UA) Urine Ketones Urine Blood Urine Nitrite Ur Leukocyte Esterase Urine RBC Urine WBC Ur Squamous Epith Cells Ur Renal Epithelial Cell Urine Bacteria Hyaline Casts Urine Mucus Urine Osmolality Ur Random Sodium Urine Creatinine C. difficile Tox B Gene NEGATIVE COVID-19 (JAS) COVID-19 Clin Com Hepatitis A IgM Ab Hep Bs Antigen Hep Bs Antibody Hep B Core Total Ab Hepatitis C Ab (EIA) Influenza Type A (PCR) Influenza Type B (PCR) RSV RNA Qual (PCR) SARS-CoV-2 RNA (RT-PCR) 12/30/21 12/31/21 12/31/21 22:04 07:41 07:41 WBC 7.0 RBC 5.14 Hgb 13.9 L Hct 43.5 MCV 84.6 MCH 27.0 MCHC 32.0 RDW 18.7 H Plt Count 331 MPV 9.3 L Immature Gran % (Auto) Neut % (Auto) Lymph % (Auto) [place] % (Auto) Eos % (Auto) Baso % (Auto) Lymph # (Auto) [place] # (Auto) Eos # (Auto) Baso # (Auto) Abs Immat Gran (auto) Absolute Neuts (auto) Absolute Nucleated RBC 0.000 Nucleated RBC % (auto) 0.0 Sodium 136 Potassium 4.4 Chloride 104 Carbon Dioxide 23 Anion Gap 13 BUN 26 H Creatinine 1.07 Estim Creat Clear Calc 61.7 Estimated GFR > 60 Random Glucose 114 Osmolality Calcium 8.1 L D Magnesium Total Bilirubin Direct Bilirubin AST ALT Alkaline Phosphatase Lactate Dehydrogenase Troponin I High Sens C-Reactive Protein B-Natriuretic Peptide Total Protein Albumin Lipase Urine Color DK YELLOW Urine Appearance CLEAR Urine pH 6.0 Ur Specific [place] >= 1.030 H Urine Protein 1+ H Urine Glucose (UA) NEG Urine Ketones NEG Urine Blood NEG Urine Nitrite NEG Ur Leukocyte Esterase NEG Urine RBC 1-4 Urine WBC 0-2 Ur Squamous Epith Cells 3+ Ur Renal Epithelial Cell 1+ Urine Bacteria 1+ Hyaline Casts 5-9 Urine Mucus 3+ Urine Osmolality Ur Random Sodium Urine Creatinine C. difficile Tox B Gene COVID-19 (JAS) COVID-19 Clin Com Hepatitis A IgM Ab Hep Bs Antigen Hep Bs Antibody Hep B Core Total Ab Hepatitis C Ab (EIA) Influenza Type A (PCR) Influenza Type B (PCR) RSV RNA Qual (PCR) SARS-CoV-2 RNA (RT-PCR) 12/31/21 01/01/22 01/01/22 07:41 06:40 06:40 WBC 8.3 RBC 5.48 Hgb 14.9 Hct 48.6 MCV 88.7 MCH 27.2 MCHC 30.7 L RDW 19.9 H Plt Count 329 MPV 9.2 L Immature Gran % (Auto) Neut % (Auto) Lymph % (Auto) [place] % (Auto) Eos % (Auto) Baso % (Auto) Lymph # (Auto) [place] # (Auto) Eos # (Auto) Baso # (Auto) Abs Immat Gran (auto) Absolute Neuts (auto) Absolute Nucleated RBC 0.000 Nucleated RBC % (auto) 0.0 Sodium 133 L Potassium 4.7 Chloride 107 Carbon Dioxide 18 L Anion Gap 13 BUN 25 H Creatinine 1.02 Estim Creat Clear Calc 64.8 Estimated GFR > 60 Random Glucose 122 H Osmolality Calcium 8.1 L Magnesium Total Bilirubin Direct Bilirubin AST ALT Alkaline Phosphatase Lactate Dehydrogenase Troponin I High Sens 10.6 C-Reactive Protein B-Natriuretic Peptide Total Protein Albumin Lipase Urine Color Urine Appearance Urine pH Ur Specific [place] Urine Protein Urine Glucose (UA) Urine Ketones Urine Blood Urine Nitrite Ur Leukocyte Esterase Urine RBC Urine WBC Ur Squamous Epith Cells Ur Renal Epithelial Cell Urine Bacteria Hyaline Casts Urine Mucus Urine Osmolality Ur Random Sodium Urine Creatinine C. difficile Tox B Gene COVID-19 (JAS) COVID-19 Clin Com Hepatitis A IgM Ab Hep Bs Antigen Hep Bs Antibody Hep B Core Total Ab Hepatitis C Ab (EIA) Influenza Type A (PCR) Influenza Type B (PCR) RSV RNA Qual (PCR) SARS-CoV-2 RNA (RT-PCR) 01/01/22 01/02/22 01/02/22 06:40 06:25 08:49 WBC RBC Hgb Hct MCV MCH MCHC RDW Plt Count MPV Immature Gran % (Auto) Neut % (Auto) Lymph % (Auto) [place] % (Auto) Eos % (Auto) Baso % (Auto) Lymph # (Auto) [place] # (Auto) Eos # (Auto) Baso # (Auto) Abs Immat Gran (auto) Absolute Neuts (auto) Absolute Nucleated RBC Nucleated RBC % (auto) Sodium 132 L Potassium 4.6 Chloride 107 Carbon Dioxide 13 L Anion Gap 17 BUN 35 H Creatinine 1.18 Estim Creat Clear Calc 56.0 Estimated GFR > 60 Random Glucose 145 H Osmolality Calcium 8.2 L Magnesium Total Bilirubin 0.9 Direct Bilirubin 0.4 AST 100 H ALT 136 H Alkaline Phosphatase 204 H Lactate Dehydrogenase 376 H Troponin I High Sens 10.8 C-Reactive Protein 1.33 H B-Natriuretic Peptide Total Protein 4.8 L Albumin 2.7 L Lipase Urine Color Urine Appearance Urine pH Ur Specific [place] Urine Protein Urine Glucose (UA) Urine Ketones Urine Blood Urine Nitrite Ur Leukocyte Esterase Urine RBC Urine WBC Ur Squamous Epith Cells Ur Renal Epithelial Cell Urine Bacteria Hyaline Casts Urine Mucus Urine Osmolality Ur Random Sodium Urine Creatinine C. difficile Tox B Gene COVID-19 (JAS) COVID-19 Clin Com Hepatitis A IgM Ab Hep Bs Antigen Hep Bs Antibody Hep B Core Total Ab Hepatitis C Ab (EIA) Influenza Type A (PCR) Influenza Type B (PCR) RSV RNA Qual (PCR) SARS-CoV-2 RNA (RT-PCR) 01/03/22 01/03/22 01/03/22 06:15 06:15 06:15 WBC 9.5 RBC 4.90 Hgb 13.3 L Hct 40.9 L MCV 83.5 D MCH 27.1 MCHC 32.5 RDW 19.9 H Plt Count 352 MPV 9.0 L Immature Gran % (Auto) Neut % (Auto) Lymph % (Auto) [place] % (Auto) Eos % (Auto) Baso % (Auto) Lymph # (Auto) [place] # (Auto) Eos # (Auto) Baso # (Auto) Abs Immat Gran (auto) Absolute Neuts (auto) Absolute Nucleated RBC 0.000 Nucleated RBC % (auto) 0.0 Sodium 133 L Potassium 3.3 D Chloride 104 Carbon Dioxide 21 L Anion Gap 11 L BUN 29 H Creatinine 0.83 Estim Creat Clear Calc 79.6 Estimated GFR > 60 Random Glucose 110 Osmolality Calcium 7.8 L Magnesium Total Bilirubin 1.0 Direct Bilirubin 0.5 AST 74 H ALT 116 H Alkaline Phosphatase 194 H Lactate Dehydrogenase Troponin I High Sens C-Reactive Protein B-Natriuretic Peptide Total Protein 4.2 L Albumin 2.6 L Lipase Urine Color Urine Appearance Urine pH Ur Specific [place] Urine Protein Urine Glucose (UA) Urine Ketones Urine Blood Urine Nitrite Ur Leukocyte Esterase Urine RBC Urine WBC Ur Squamous Epith Cells Ur Renal Epithelial Cell Urine Bacteria Hyaline Casts Urine Mucus Urine Osmolality Ur Random Sodium Urine Creatinine C. difficile Tox B Gene COVID-19 (JAS) COVID-19 Clin Com Hepatitis A IgM Ab Nonreactive Hep Bs Antigen Negative Hep Bs Antibody NONREACTIVE Hep B Core Total Ab Nonreactive Hepatitis C Ab (EIA) Nonreactive Influenza Type A (PCR) Influenza Type B (PCR) RSV RNA Qual (PCR) SARS-CoV-2 RNA (RT-PCR) 01/04/22 01/04/22 01/05/22 05:55 05:55 06:56 WBC RBC Hgb Hct MCV MCH MCHC RDW Plt Count MPV Immature Gran % (Auto) Neut % (Auto) Lymph % (Auto) [place] % (Auto) Eos % (Auto) Baso % (Auto) Lymph # (Auto) [place] # (Auto) Eos # (Auto) Baso # (Auto) Abs Immat Gran (auto) Absolute Neuts (auto) Absolute Nucleated RBC Nucleated RBC % (auto) Sodium 131 L 132 L Potassium 3.3 2.8 L Chloride 102 102 Carbon Dioxide 22 22 Anion Gap 10 L 11 L BUN 25 H 23 H Creatinine 0.78 0.70 Estim Creat Clear Calc 84.7 94.4 Estimated GFR > 60 > 60 Random Glucose 97 97 Osmolality Calcium 7.8 L 7.8 L Magnesium Total Bilirubin 1.0 Direct Bilirubin 0.6 H AST 66 H ALT 107 H Alkaline Phosphatase 190 H Lactate Dehydrogenase Troponin I High Sens C-Reactive Protein B-Natriuretic Peptide Total Protein 4.0 L Albumin 2.5 L Lipase Urine Color Urine Appearance Urine pH Ur Specific [place] Urine Protein Urine Glucose (UA) Urine Ketones Urine Blood Urine Nitrite Ur Leukocyte Esterase Urine RBC Urine WBC Ur Squamous Epith Cells Ur Renal Epithelial Cell Urine Bacteria Hyaline Casts Urine Mucus Urine Osmolality Ur Random Sodium Urine Creatinine C. difficile Tox B Gene COVID-19 (JAS) COVID-19 Clin Com Hepatitis A IgM Ab Hep Bs Antigen Hep Bs Antibody Hep B Core Total Ab Hepatitis C Ab (EIA) Influenza Type A (PCR) Influenza Type B (PCR) RSV RNA Qual (PCR) SARS-CoV-2 RNA (RT-PCR) 01/06/22 01/06/22 01/06/22 09:39 14:15 14:15 WBC RBC Hgb Hct MCV MCH MCHC RDW Plt Count MPV Immature Gran % (Auto) Neut % (Auto) Lymph % (Auto) [place] % (Auto) Eos % (Auto) Baso % (Auto) Lymph # (Auto) [place] # (Auto) Eos # (Auto) Baso # (Auto) Abs Immat Gran (auto) Absolute Neuts (auto) Absolute Nucleated RBC Nucleated RBC % (auto) Sodium 136 Potassium 3.8 D Chloride 102 Carbon Dioxide 24 Anion Gap 14 BUN 18 H Creatinine 0.77 Estim Creat Clear Calc 85.8 Estimated GFR > 60 Random Glucose 99 Osmolality Calcium 8.0 L Magnesium Total Bilirubin Direct Bilirubin AST ALT Alkaline Phosphatase Lactate Dehydrogenase Troponin I High Sens C-Reactive Protein B-Natriuretic Peptide Total Protein Albumin Lipase Urine Color Urine Appearance Urine pH Ur Specific [place] Urine Protein Urine Glucose (UA) Urine Ketones Urine Blood Urine Nitrite Ur Leukocyte Esterase Urine RBC Urine WBC Ur Squamous Epith Cells Ur Renal Epithelial Cell Urine Bacteria Hyaline Casts Urine Mucus Urine Osmolality 754 Ur Random Sodium < 20.0 Urine Creatinine 188.43 C. difficile Tox B Gene COVID-19 (JAS) COVID-19 Clin Com Hepatitis A IgM Ab Hep Bs Antigen Hep Bs Antibody Hep B Core Total Ab Hepatitis C Ab (EIA) Influenza Type A (PCR) Influenza Type B (PCR) RSV RNA Qual (PCR) SARS-CoV-2 RNA (RT-PCR) 01/07/22 01/07/22 01/07/22 08:16 08:16 08:50 WBC RBC Hgb Hct MCV MCH MCHC RDW Plt Count MPV Immature Gran % (Auto) Neut % (Auto) Lymph % (Auto) [place] % (Auto) Eos % (Auto) Baso % (Auto) Lymph # (Auto) [place] # (Auto) Eos # (Auto) Baso # (Auto) Abs Immat Gran (auto) Absolute Neuts (auto) Absolute Nucleated RBC Nucleated RBC % (auto) Sodium 134 L Potassium 3.6 Chloride 103 Carbon Dioxide 25 Anion Gap 10 L BUN 16 Creatinine 0.69 Estim Creat Clear Calc 95.8 Estimated GFR > 60 Random Glucose 88 Osmolality 276 L Calcium 7.8 L Magnesium Total Bilirubin Direct Bilirubin AST ALT Alkaline Phosphatase Lactate Dehydrogenase Troponin I High Sens C-Reactive Protein B-Natriuretic Peptide Total Protein Albumin Lipase Urine Color Urine Appearance Urine pH Ur Specific [place] Urine Protein Urine Glucose (UA) Urine Ketones Urine Blood Urine Nitrite Ur Leukocyte Esterase Urine RBC Urine WBC Ur Squamous Epith Cells Ur Renal Epithelial Cell Urine Bacteria Hyaline Casts Urine Mucus Urine Osmolality Ur Random Sodium Urine Creatinine C. difficile Tox B Gene COVID-19 (JAS) Negative COVID-19 Clin Com See Note Hepatitis A IgM Ab Hep Bs Antigen Hep Bs Antibody Hep B Core Total Ab Hepatitis C Ab (EIA) Influenza Type A (PCR) Influenza Type B (PCR) RSV RNA Qual (PCR) SARS-CoV-2 RNA (RT-PCR) 01/08/22 06:57 WBC RBC Hgb Hct MCV MCH MCHC RDW Plt Count MPV Immature Gran % (Auto) Neut % (Auto) Lymph % (Auto) [place] % (Auto) Eos % (Auto) Baso % (Auto) Lymph # (Auto) [place] # (Auto) Eos # (Auto) Baso # (Auto) Abs Immat Gran (auto) Absolute Neuts (auto) Absolute Nucleated RBC Nucleated RBC % (auto) Sodium 134 L Potassium 3.3 Chloride 103 Carbon Dioxide 25 Anion Gap 9 L BUN 16 Creatinine 0.63 Estim Creat Clear Calc 104.9 Estimated GFR > 60 Random Glucose 81 Osmolality Calcium 7.9 L Magnesium Total Bilirubin 0.5 Direct Bilirubin 0.3 AST 45 H ALT 74 H Alkaline Phosphatase 180 H Lactate Dehydrogenase Troponin I High Sens C-Reactive Protein B-Natriuretic Peptide Total Protein 4.2 L Albumin 2.4 L Lipase Urine Color Urine Appearance Urine pH Ur Specific [place] Urine Protein Urine Glucose (UA) Urine Ketones Urine Blood Urine Nitrite Ur Leukocyte Esterase Urine RBC Urine WBC Ur Squamous Epith Cells Ur Renal Epithelial Cell Urine Bacteria Hyaline Casts Urine Mucus Urine Osmolality Ur Random Sodium Urine Creatinine C. difficile Tox B Gene COVID-19 (JAS) COVID-19 Clin Com Hepatitis A IgM Ab Hep Bs Antigen Hep Bs Antibody Hep B Core Total Ab Hepatitis C Ab (EIA) Influenza Type A (PCR) Influenza Type B (PCR) RSV RNA Qual (PCR) SARS-CoV-2 RNA (RT-PCR) Airway Mallampati Class: II TM Dist: >3cm Neck ROM: Full Denture: Upper and Lower Heart: rrr Lungs: clear Assessment and Plan Final Anesthetic Review Family History of Problems with Anesthesia: No History of Problems with Anesthesia: No NPO: Yes ASA Class: III and Emergency Final Preanesthetic Review: No Changes in Pt Med Stat, Meds/Allgs Chart Reviewed, Consent Obtained/Reviewed and Anes Risks/Benef Reviewed Patient Risk: High Procedure Risk: Intermediate Anesthetic Plan Anesthetic Plan: GA Disposition: Standard PACU
--- NOTE | 2022-01-08 14:35 | PC.NURSE ---
1330 Returned from PACU band aid dsgs intact. ostomy patent. VSS.
--- NOTE | 2022-01-08 15:03 | HO.PM.IMPN ---
Subjective Subjective Date of Service: 01/08/22 Interval History: sitting comfortably on recliner offers no acute complaints denies lightheadedness dizziness, no chest pain, stool formed no nausea no vomiting no other acute issues overnight patient NPO for removal of CANDELARIO drain this afternoon under general anesthesia Review of Systems [employer] ON CALL no headache no dizziness CVS no chest pain, no palpitation respiratory no cough, no shortness of breath Review of Systems: Yes all other systems are reviewed and are negative Physical Exam Vital Signs: Vital Signs: Last Vital Signs Temp 97.8 F 01/08/22 13:55 Pulse 62 01/08/22 13:55 Resp 16 01/08/22 13:55 BP 126/59 L 01/08/22 13:55 Pulse Ox 97 01/08/22 13:55 O2 Del Method 01/08/22 13:55 O2 Flow Rate 6 01/08/22 12:45 BMI result Body Mass Index 19.5 Constitutional :?frail appearing, awake alert in no distress Neck : Normal inspection,? no JVD Cardiovascular : RRR, Respiratory :? clear to auscultate? no crackles, wheezes or rhonchi Gastrointestinal:? soft, Normal bowel sounds, Non tender, ostomyin place with less?liquidy stool ,?CANDELARIO drain? with small amount of serous fluid Skin : Warm, Dry Extremities no edema Neurological : Alert & oriented x3, No focal deficit , CN 2-12 within normal psychappropriate affect Objective Data Active Medications Acetaminophen (Acetaminophen 325 Mg Tablet) 650 mg PO Q6H PRN PRN Reason: Pain, Mild (Pain Scale 1-3) Ascorbic Acid (Ascorbic Acid 500 Mg Tablet) 500 mg PO DAILY [facility] Last Admin: 01/08/22 08:36 Dose: Not Given Documented By: CLAUDETTE Non-Admin Reason: NPO Enoxaparin Sodium (Enoxaparin Sodium 40 Mg/0.4 Ml Syringe) 40 mg SUBCUT Q24H [facility] Last Admin: 01/07/22 17:11 Dose: 40 mg Documented By: GERSON Famotidine (Famotidine/Pf 20 Mg/2 Ml Vial) 20 mg IVPUSH DAILY [facility] Last Admin: 01/08/22 08:34 Dose: 20 mg Documented By: CLAUDETTE Fentanyl (Fentanyl Citrate/Pf 100 Mcg/2 Ml Vial) 25 mcg IVPUSH Q5M PRN; Protocol PRN Reason: Pain, Moderate (Pain Scale 4-6 Loperamide HCl (Loperamide Hcl 2 Mg Capsule) 2 mg PO QID [facility] Last Admin: 01/08/22 14:58 Dose: 2 mg Documented By: CLAUDETTE Loperamide HCl (Loperamide Hcl 2 Mg Capsule) 2 mg PO Q4H PRN PRN Reason: Diarrhea Metoprolol Tartrate (Metoprolol Tartrate 12.5 Mg Halftab) 12.5 mg PO BID [facility]; Protocol Last Admin: 01/08/22 08:36 Dose: 12.5 mg Documented By: CLAUDETTE Midodrine (Midodrine Hcl 5 Mg Tablet) 5 mg PO TID [facility] Last Admin: 01/08/22 14:57 Dose: 5 mg Documented By: CLAUDETTE Morphine Sulfate (Morphine Sulfate 2 Mg/Ml Cartridge) 2 mg IVPUSH Q3H PRN; Protocol PRN Reason: Pain, Severe (Pain Scale 7-10) Ondansetron HCl (Ondansetron Hcl 4 Mg/2 Ml Vial) 4 mg IVPUSH Q8H PRN PRN Reason: Nausea and Vomiting Last Admin: 12/31/21 21:36 Dose: 4 mg Documented By: DEIRDRE Ondansetron HCl (Ondansetron Hcl 4 Mg/2 Ml Vial) 4 mg IVPUSH ONCE PRN PRN Reason: Nausea and Vomiting Oxycodone HCl (Oxycodone Hcl Immed Release 5 Mg Tablet) 5 mg PO Q4H PRN PRN Reason: Pain, Moderate (Pain Scale 4-6 Pharmacy Consult (Consult Rx Perform Med Rec) 1 each MISCELLANE ONCE PRN PRN Reason: Consult order Sodium Chloride (0.9 % Sodium Chloride Flush 3 Ml Syringe) 3 ml IVFLUSH QSHIFT [facility] Last Admin: 01/08/22 08:35 Dose: 3 ml Documented By: CLAUDETTE Labs CBC & Chem 7: 01/03/22 06:15 01/08/22 06:57 Labs: Laboratory Results - last 24 hr 01/08/22 06:57 Anion Gap 9 L Estim Creat Clear Calc 104.9 Estimated GFR > 60 Random Glucose 81 Calcium 7.9 L Total Bilirubin 0.5 Direct Bilirubin 0.3 AST 45 H ALT 74 H Alkaline Phosphatase 180 H Total Protein 4.2 L Albumin 2.4 L Assessment and Plan (1) High output ileostomy: Status: Acute (2) COVID-19 virus infection: Status: Acute (3) Nonsustained ventricular tachycardia: Status: Acute (4) Metabolic acidosis: Status: Acute Plan 71 years old male with PMH of renal cancer, colon cancer post colon resection and ostomy who presents to the hospital complaining of increase weakness, decreased oral intake and increased output through the colostomy. 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 plans to remove CANDELARIO drain under anesthesia today. no recurrent episode of PVC and non sustained V-tach Hyponatremia. sodium improved and stable around 134 Increased ostomy output. resolved, stools more solid now cdif negative , status post IV fluid, continue Imodium scheduled surgery following. orthostatic hypotension. asymptomatic, few low blood pressure readings, cont.midodrine, secondary to increased ostomy output/dehydration follow repeat orthostatic blood pressure being followed by Nephrology cortisol pending Metabolic acidosis. resolved , status post iv soda bicarb related to increased GI losses monitor BMP chest pain. Resolved ,seems more GI in nature EKG without ischemic changes,trops flat COVID-19 infection repeat CXR unremarkable. Oxygen saturation 99% on room air, repeat COVID test negative NSVT Noted in emergency rm, no recurrent episode patient remained asymptomatic seen by Cardiology, recommend outpatient echocardiogram and possible outpatient stress test after COVID-19 resolved Continue low-dose metoprolol Transaminitis. Trending down likely from viral illness RUQ US showing nothing acute hepatitis screen negative Pseudo hypocalcemia From low albumin continue to monitor, continue protein supplements Moderate protein calorie malnutrition BMI 19.5 supplements added DVT PPX- Lovenox Dispo - PT rec STR Patient requires continued hospitalization since scheduled to have removal of CANDELARIO drain under anaesthesia today. Quality Stroke Does the patient have a stroke diagnosis?: No VTE Prior VTE?: No VTE Risk Level:: Medical - moderate - high VTE Device Contraindication: Treatment Not Indicated VTE Drug Contraindication: N/A - Med Ordered
--- NOTE | 2022-01-08 16:11 | PM.EVENT ---
Event Note Date of Service: 01/08/22 Event Note: Underwent laparoscopy, removal of CANDELARIO drain earlier He says he has pain control States he is comfortable Looks well Stable vital signs Abdomen soft Dressings dry Pain management Diet as tolerated
[2022-01-08] MEDS: Enoxaparin Sodium 40 MG/0.4 ML SYRINGE SUBCUT (17:09)
[2022-01-09 04:00] VITALS: BP 157/70; PULSE 76; RESP 16; TEMP 36.6
[2022-01-09 07:44] VITALS: BP 127/64; PULSE 74; RESP 20; TEMP 36.8; O2SAT 99
[2022-01-09 08:00] VITALS: BP 142/63; PULSE 75
--- NOTE | 2022-01-09 08:15 | P.PNGS_ITS ---
Subjective Subjective Date of Service: 01/09/22 Interval history: says he feels well minimal incisional pain good oral intake since postop Physical Exam Vital Signs: Vital Signs: Last Vital Signs Temp 98.3 F 01/09/22 07:44 Pulse 74 01/09/22 07:44 Resp 20 01/09/22 07:44 BP 127/64 01/09/22 07:44 Pulse Ox 99 01/09/22 07:44 O2 Del Method 01/08/22 23:40 O2 Flow Rate 6 01/08/22 12:45 BMI result Body Mass Index 19.5 Const: General: comfortable and no acute distress Cardio: Rate: regular rate GI: Other: BandAids dry Palpation (GI): Soft to palpation, Firmness to palpation present (GI), nontender and no guarding Objective Data Active Medications Acetaminophen (Acetaminophen 325 Mg Tablet) 650 mg PO Q6H PRN PRN Reason: Pain, Mild (Pain Scale 1-3) Ascorbic Acid (Ascorbic Acid 500 Mg Tablet) 500 mg PO DAILY [facility] Last Admin: 01/08/22 08:36 Dose: Not Given Documented By: CLAUDETTE Non-Admin Reason: NPO Enoxaparin Sodium (Enoxaparin Sodium 40 Mg/0.4 Ml Syringe) 40 mg SUBCUT Q24H [facility] Last Admin: 01/08/22 17:09 Dose: 40 mg Documented By: MEI Famotidine (Famotidine/Pf 20 Mg/2 Ml Vial) 20 mg IVPUSH DAILY [facility] Last Admin: 01/08/22 08:34 Dose: 20 mg Documented By: CLAUDETTE Fentanyl (Fentanyl Citrate/Pf 100 Mcg/2 Ml Vial) 25 mcg IVPUSH Q5M PRN; Protocol PRN Reason: Pain, Moderate (Pain Scale 4-6 Loperamide HCl (Loperamide Hcl 2 Mg Capsule) 2 mg PO QID [facility] Last Admin: 01/08/22 20:37 Dose: 2 mg Documented By: CELIA Loperamide HCl (Loperamide Hcl 2 Mg Capsule) 2 mg PO Q4H PRN PRN Reason: Diarrhea Metoprolol Tartrate (Metoprolol Tartrate 12.5 Mg Halftab) 12.5 mg PO BID [facility]; Protocol Last Admin: 01/08/22 20:37 Dose: 12.5 mg Documented By: CELIA Midodrine (Midodrine Hcl 5 Mg Tablet) 5 mg PO TID [facility] Last Admin: 01/08/22 20:37 Dose: 5 mg Documented By: CELIA Morphine Sulfate (Morphine Sulfate 2 Mg/Ml Cartridge) 2 mg IVPUSH Q3H PRN; Protocol PRN Reason: Pain, Severe (Pain Scale 7-10) Ondansetron HCl (Ondansetron Hcl 4 Mg/2 Ml Vial) 4 mg IVPUSH Q8H PRN PRN Reason: Nausea and Vomiting Last Admin: 12/31/21 21:36 Dose: 4 mg Documented By: DEIRDRE Ondansetron HCl (Ondansetron Hcl 4 Mg/2 Ml Vial) 4 mg IVPUSH ONCE PRN PRN Reason: Nausea and Vomiting Oxycodone HCl (Oxycodone Hcl Immed Release 5 Mg Tablet) 5 mg PO Q4H PRN PRN Reason: Pain, Moderate (Pain Scale 4-6 Pharmacy Consult (Consult Rx Perform Med Rec) 1 each MISCELLANE ONCE PRN PRN Reason: Consult order Sodium Chloride (0.9 % Sodium Chloride Flush 3 [facility]l [facility]) [facility] Admin: 01/08/22 20:37 Dose: 3 ml Documented By: CELIA Labs CBC & Chem 7: 01/03/22 06:15 01/08/22 06:57 Procedures Date of Service Date of Service: 01/09/22 Progress Note: A&P Assessment and plan (1) Colostomy in place: Status: Acute Assessment and Plan: S/P laparoscopy, lysis of adhesions, removal of CANDELARIO drain doing well good GI function ok to dc BandAids tomorrow ok to shower when dishcarged, may ffup in office for wound check Time Spent With Patient Time: Total time spent is greater than 50% in coordination of care (as documented) at patient's floor/unit and/or counseling patient: Quality Stroke Does the patient have a stroke diagnosis?: No VTE Prior VTE?: No VTE Risk Level:: Medical - moderate - high VTE Device Contraindication: Treatment Not Indicated VTE Drug Contraindication: N/A - Med Ordered
[2022-01-09 09:06] VITALS: BP 127/64; PULSE 74; O2SAT 99
[2022-01-09] MEDS: Ascorbic Acid 500 MG TABLET PO (10:00)
[2022-01-09] MEDS: 0.9 % Sodium Chloride Flush 3 ML SYRINGE IVFLUSH (10:00)
[2022-01-09] MEDS: Metoprolol Tartrate 12.5 MG HALFTAB PO (10:00)
[2022-01-09] MEDS: Famotidine/PF 20 MG/2 ML VIAL IVPUSH (10:01)
[2022-01-09] MEDS: Loperamide HCl 2 MG CAPSULE PO ×2 (10:01→14:21)
[2022-01-09] MEDS: Midodrine HCl 5 MG TABLET PO ×2 (10:01→14:21)
[2022-01-09 10:14] VITALS: BP 127/66; PULSE 89
--- NOTE | 2022-01-09 10:59 | MHC.CLN ---
F/U PO INTAKE IMPROVED 50-100% DIET RX: REGULAR-DIET ADVANCED TO REGULAR PER DR DIEGO 1500ML FLUID RESTRICTION D/C ALTHOUGH NOTED SERUM NA 134 WILL RE-START ENSURE TID TO INCREASE KCALS PROVIDES 1050KCALS (51% EST KCAL NEEDS), 60G PROTEIN (43% EST PROTEIN NEEDS), 540ML FREE WATER FROM SUPPLEMENT (FOR FLUID RESTRICTION; 180ML PER 8OZ SUPPLEMENT) CONTINUE TO MONITOR PO INTAKE CLOSELY
--- NOTE | 2022-01-09 11:21 | HO.POSTANES ---
Post Anesthesia Evaluation Post Anesthesia Evaluation Vital Signs: Vital Signs Temp Pulse Resp BP Pulse Ox O2 Del Method 01/09/22 10:14 89 127/66 01/09/22 08:00 75 142/63 H 01/09/22 09:06 74 127/64 99 01/09/22 07:44 98.3 F 74 20 127/64 99 01/09/22 04:00 97.8 F 76 16 157/70 H 01/08/22 23:40 98.2 F 77 16 117/56 L 97 Room Air Anesthesia: General Endotracheal-GETA Mental Status: Awake Pain Control: Satisfactory Nausea/Vomiting: None Hydration: Adequate Anesthesia-Related Issues: No Anes. Related Issues
[2022-01-09 11:22] VITALS: BP 147/68; PULSE 67; RESP 18; TEMP 36.2; O2SAT 100
--- NOTE | 2022-01-09 12:02 | MHC.CM.PN ---
Male 71 DX Covid+ He is discharged today with new [facility]NA. His family will provide transportation home.
--- NOTE | 2022-01-09 12:22 | P.F2F_ITS ---
Service Date Service Date: 01/09/22 Encounter Date of encounter: 01/09/22 Reasons for Services Signs and symptoms assessed: generalized weakness/ orthostatic hypotension Reason for residential: CV/CP assess and/or care and medication management Reason for physical therapy: home safety and mobility Homebound: Leaving the home is medically contraindicated at this time without the asist of a device and/or another person due th the listed conditions above and below. Reason homebound: weakness related to hospital stay Certification: Based on the above findings, I certify that this patient is confined to the home and needs intermittent residential care, physical therapy and/or speech therapy, or continues to need occupational therapy. The patient is under my care, and I have initiated the establishment of the plan of care. The patient will be followed by a physician who will periodically review the plan of care.
--- NOTE | 2022-01-09 12:39 | PM.PNNEP ---
Subjective Subjective Date of Service: 01/09/22 Interval history: sitting comfortably on recliner offers no acute complaints denies lightheadedness dizziness, no chest pain, stool formed no nausea no vomiting no other acute issues overnight patient NPO for removal of CANDELARIO drain this afternoon under general anesthesia Physical Exam Vital Signs: Vital Signs: Last Vital Signs Temp 97.1 F 01/09/22 11:22 Pulse 67 01/09/22 11:22 Resp 18 01/09/22 11:22 BP 147/68 H 01/09/22 11:22 Pulse Ox 100 01/09/22 11:22 O2 Del Method 01/09/22 11:22 O2 Flow Rate 6 01/08/22 12:45 BMI result Body Mass Index 19.5 Const: Other: frail looking but appears comfortable Resp: Effort & Inspection: able to speak in complete sentences Auscultation: no rales Cardio: Rate: regular rate Heart sounds: no rubs GI: Palpation (GI): not firm and nontender Extrem: General: Yes no pedal edema Objective Data Labs CBC & Chem 7: 01/03/22 06:15 01/08/22 06:57 Procedures Date of Service Date of Service: 01/09/22 Assessment & Plan Assessment and plan (1) HTN (hypertension): Status: Acute Plan Hyponatremia Orthostatic hypotension Hypokalemia Hyponatremia - DDX Hypovolemia - supported by LOW urine sodium < 20 r/o adrenal isufficiency ludin due to low BP Suggest Cortisol (ordered) REstrict PO water intake Replace K orally Keep Midodrine Time Spent With Patient Time: Total time spent is greater than 50% in coordination of care (as documented) at patient's floor/unit and/or counseling patient: Progress Note: Quality Stroke Does the patient have a stroke diagnosis?: No
--- NOTE | 2022-01-09 12:43 | PM.DS ---
DS: Providers Provider Date of Service: 01/09/22 Date of admission: 12/30/21 15:31 Primary care physician: MARCIE Meraz Consults: 12/30/21 15:32 Consult to Cardiology Routine Consulting Provider: Lj Hogue Reason for consultation: NSVT for your kind eval. Consult to General Surgery Routine Consulting Provider: Nghia Downing Reason for consultation: increase colostomy output, dehydration 01/05/22 09:25 Consult to Nephrology Routine Consulting Provider: Steven Camacho Reason for consultation: orthostatic bp Has provider been notified: No DS: Diagnosis Discharge Diagnosis (1) HTN (hypertension): Status: Acute DS: Summary Hospital Course Hospital Course: Chief Complaint: Increased weakness, high output ostomy 71 years old male with PMH of renal cancer, colon cancer post colon resection and ostomy who presents to the hospital complaining of increase weakness, decreased oral intake and increased output through the colostomy. He reports being tested positive for COVID almost 10 days ago but for the last 4-5 days he has been having more generalized weakness, decreased oral intake and increased output through his colostomy.? He is feeling weaker than his baseline and has been and able to ambulate the way he used before.? Reports feeling short of breath and dizzy upon ambulation.? Denies any fever, chills, abdominal pain, chest pain but reported having some nausea with no vomiting.? Noticed decrease urine output.? He is on active chemotherapy followed by Dr. Cisneros.? His treatment now on hold as she held his last dose on Wednesday. Reported being scheduled to remove abdominal drain that was left since his surgery in August.? In the emergency tested positive for COVID and was found to have mild dehydration.? EKG was within normal but telemetry noticed an episode of NSVT.? will be admitted for further evaluation and treatment. hospital course 71 years old male with PMH of renal cancer, colon cancer post colon resection and ostomy who presents to the hospital complaining of increase weakness, decreased oral intake and increased output through the colostomy, patient diagnosed to have COVID-19 infection, hyponatremia, metabolic acidosis, and noted to have orthostatic hypotension patient treated aggressively with IV fluid due to persistent positive orthostatic blood pressures,patient placed on midodrin with good response, ostomy output has improved with the use of scheduled and as needed Imodium now patient is having more formed stools, hyponatremia improved with fluid resuscitation, currently patient is tolerating diet and feeling better therefore being discharged home, in the emergency room patient was noted to have an episode of nonsustained V-tach with no recurrence patient was seen by 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 Downing after patient was cleared by Cardiology, patient tolerated procedure well with no postop complications. patient seen by physical therapy they recommend home with therapy and due to generalized weakness patient is being discharged home with VNA services and home PT Metabolic acidosis. related to increased GI losses resolved , status post iv soda bicarb chest pain. Resolved ,seems more GI in nature,EKG without ischemic changes, troponins remain flat COVID-19 infection CXR unremarkable. Oxygen saturation 99% on room air, repeat COVID test negative Transaminitis.? likely from viral illness,RUQ US showing nothing acute,hepatitis screen? negative, LFTs tren Moderate protein calorie malnutrition BMI 19.5, recommended protein supplement Time Spent with Patient Time attestation: Total time spent providing and/or coordinating discharge services: Discharge coordination time: Greater than 30 minutes Quality: Safe Use of Opioids Does Pt have an Active Cancer Diagnosis on the Problem List?: No Quality: Stroke Does the patient have a stroke diagnosis?: No Physical Exam Vital Signs: Vital Signs: Last Vital Signs Temp 97.1 F 01/09/22 11:22 Pulse 67 01/09/22 11:22 Resp 18 01/09/22 11:22 BP 147/68 H 01/09/22 11:22 Pulse Ox 100 01/09/22 11:22 O2 Del Method 01/09/22 11:22 O2 Flow Rate 6 01/08/22 12:45 BMI result Body Mass Index 19.5 Const: Other: Constitutional :?frail appearing, awake alert no distress Neck : Normal inspection,? no JVD Cardiovascular : RRR, Respiratory :? clear to auscultation,? no crackles, wheezes or rhonchi Gastrointestinal:? soft, Normal bowel sounds, Non tender, ostomy in place Skin : Warm, Dry Extremities no edema Neurological : Alert & oriented x3, No focal deficit , CN 2-12 within normal psych appropriate affect DS: Data Data Completed and Pending Completed studies during hospitalization [Text1]: Procedures Bypass Sigmoid Colon to Cutaneous, Open Approach (09/02/21) Drainage of Right Kidney, Percutaneous Approach, Diagnostic (09/02/21) Excision of Bladder, Open Approach (09/02/21) Excision of Rectum, Open Approach (09/02/21) Excision of Right Kidney, Percutaneous Approach, Diagnostic (09/02/21) Excision of Sigmoid Colon, Open Approach (09/02/21) Excision of Sigmoid Colon, Via Natural or Artificial Opening Endoscopic, Diagnostic (09/02/21) Repair Bladder, Open Approach (09/02/21) Discharge Plan Discharge Patient Disposition: Home Health Service Discharge Diagnosis: hyponatremia orthostatic hypotension metabolic acidosis COVID-19 infection nonsustained V-tach transaminitis moderate protein calorie malnutrition removal of CANDELARIO drain Referrals: Jose James, MACHINE DESIGN CHECKER[employer] [Primary Care Provider] - 1 Week Discharge Medications: New midodrine 5 mg Tablet 5 mg PO TID Qty: 90 0RF metoprolol tartrate 25 mg tablet 12.5 mg PO BID Qty: 30 0RF Continued capecitabine 500 mg Tablet 2,000 mg PO BID Qty: 112 6RF Rx Instructions: for 14 days per 21-day cycle; must administer with water 30 minutes after a meal ondansetron 8 mg Tablet,Disintegrating 8 mg PO Q8H PRN (Reason: Nausea) Qty: 30 3RF ascorbate calcium (vitamin C) 500 mg tablet 500 mg PO DAILY ferrous sulfate 325 mg (65 mg iron) tablet 325 mg PO DAILY Discontinued dexamethasone 4 mg Tablet 4 mg PO BID Qty: 30 3RF Rx Instructions: for 2 days after chemo Discharge Orders: Discharge Order (Routine); Ordered 01/09/22 Ordered By: Tray Canales Diet: regular diet Activity on Discharge: As tolerated Stand Alone Forms: Patient Portal Discharge page Care Plan Goals: hyponatremia improved/ high ostomy output resolved, likely due to COVID infection, orthostatic hypotension take midodrine continue chemotherapy as per Dr. Cisneros. Health Concerns: colon cancer status post resection, with colostomy follow-up with Dr Downing, electrolyte abnormalities resolved Plan of Treatment: outpatient follow-up with Oncology Dr. Cisneros, outpatient follow-up with Dr. Low from Nephrology for orthostatic low blood pressure Assessment: as per discharge summary
== END 2022-01-09 15:06 | disposition home health service (06) | DRG 907 ==
LOC: HO.ED 14:58 → HO.EDOVER 16:00 → HO.IMC 22:05
PROVIDERS: Internal Medicine Hypertension Specialist; Nurse Practitioner Acute Care; Physician Assistant Medical; Surgery; Admitting Provider Student in an Organized Health Care Education/Training Program; Emergency Provider Emergency Medicine; PCP Nurse Practitioner Family; Visit Provider Hospitalist
PROC: 0WPG00Z Removal of Drainage Device from Peritoneal Cavity, Open Approach (ICD-10-PCS; principal; 2022-01-08 09:10)
DX: T85.9XXA Unspecified complication of internal prosthetic device, implant and graft, initial encounter (principal); U07.1 COVID-19; A08.39 Other viral enteritis; I47.1 Supraventricular tachycardia; E44.0 Moderate protein-calorie malnutrition; Z68.1 Body mass index [BMI] 19.9 or less, adult; C78.00 Secondary malignant neoplasm of unspecified lung; C64.9 Malignant neoplasm of unspecified kidney, except renal pelvis; E87.2 Acidosis; E87.1 Hypo-osmolality and hyponatremia; C19 Malignant neoplasm of rectosigmoid junction; K66.0 Peritoneal adhesions (postprocedural) (postinfection); E87.6 Hypokalemia; I95.1 Orthostatic hypotension; E86.0 Dehydration; Z93.3 Colostomy status; Z87.891 Personal history of nicotine dependence; Z79.899 Other long term (current) drug therapy
CPT/HCPCS: 0241U; 36415; 71045; 74176; 76705; 80048; 80076; 81001; 82530; 83615; 83690; 83735; 83880; 83930; 83935; 84300; 84484; 85025; 85027; 86140; 86704; 86706; 86709; 86803; 87340; 87493; 87635; 93005; 96360; 97110; 97116; 97162; 97530; 99285; J0330; J0461; J0690; J1100; J1650; J2250; J2405; J3010

== ENCOUNTER 2022-01-29 09:46 | Outpatient (AMB) | payer OTHER, SELFPAY ==
--- NOTE | 2022-01-29 07:22 | MHC.OFFVIS ---
Intake Vital Signs 01/29/22 10:09 Height 6 ft 2 in Weight 155 lb BMI 19.9 BP 120/70 Blood Pressure Location Rt brachial Position Sitting Respiration 18 Pulse 77 Pulse Source Pulse Oximeter Intake Visit Reasons: 3 month follow up Intake Note: Patient is present for 3 month follow up Video Systems Engineer Required: No Accompanied by: Self / Same As Patient Allergies No Known Allergies Allergy (Verified 09/02/23 13:46) HPI HPI Comments History of Present Illness Details David is a pleasant male. He is a patient of Dr. Charles. He seen for the following urologic conditions - renal cancer Accompanied by son Status post colonic resection with removal of dome of bladder where colon cancer had been invasive Will be undergoing chemotherapy Discussed renal cancer diagnosis Defer therapy. Kidney cancer will be surveillance during colon cancer therapy. 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 Renal cell carcinoma Rectosigmoid cancer Pituitary lesion Fever of unknown origin Mass of pituitary Headache Colostomy in place HTN (hypertension) [place]-vesical fistula Surgical History History of removal of Port-a-Cath H/O hernia repair S/P colon resection Family History Mother Parkinsons disease Father ESRD (end stage renal disease) Other No family history of cancer Social History Household Members: Spouse Household Members Other:: 1 Housing: House Are you a primary career specialist to a significant other at home: No Do you presently have visiting nurse or other home services: Yes Alcohol intake: never Patient Tobacco Use Status: Former Tobacco user Quit Date: 30 y.o Tobacco use type: Cigarette Years Smoked: 30 years ago e-Cigarette/Vaping Use: Never Used Second Hand Smoke Exposure: No Use of substances other than those prescribed or required for medical reasons: No Have you been hit, kicked, punched, or otherwise hurt by someone within the past year? If so, by whom?: No Do you feel safe in your current relationship?: Yes Advance Directives Date on File: 06/17/23 Do you have thoughts of harming others: None Do you have a plan to hurt others: No Plan Do you have the means to hurt others: No Recently lost weight without trying: No service: Yes Current occupational status: employed and retired Cognitive needs: No Hearing needs: No Vision needs: No Review of Systems Const Denies chills and Denies fever(s) Card Reports no additional complaints and Denies syncope Resp Denies cough GI Denies abdominal pain and Denies heartburn Reports as per HPI and Denies change in libido Neuro Denies syncope Psych Denies change in libido Endo Denies change in libido Physical Exam Vital Signs: Last Vital Signs Pulse 77 01/29/22 10:09 Resp 18 01/29/22 10:09 BP 120/70 01/29/22 10:09 BMI result Body Mass Index 19.9 Const General: cooperative, healthy appearing, comfortable and no acute distress Orientation/consciousness: patient oriented x3 HEENT Face and sinus: Yes normal facial exam Mouth: moist mucous membranes Neck Neck: Yes normal visual inspection, Yes full ROM and Yes trachea midline Chest Chest palpation & inspection: normal inspection of the chest Resp Effort & Inspection: normal respiratory effort, able to speak in complete sentences and no respiratory distress GI Inspection: Yes normal to inspection Back/Spine/Pelvis Cervical Spine: normal cervical lordosis Thoracic/Lumbar Spine: thoracic and lumbar spine normal to inspection Skin General skin exam: no rashes or lesions noted Neuro General: patient oriented x3, gait normal, tone normal and moves all extremities Extrem General: Yes normal to inspection and Yes capillary refill normal Assessment & Plan Assessment & Plan (1) Renal cell carcinoma: Code(s): C64.9 - Malignant neoplasm of unspecified kidney, except renal pelvis Qualifiers: Laterality: right Qualified Code(s): C64.1 - Malignant neoplasm of right kidney, except renal pelvis Plan Three-month follow-up Imaging performed through chemotherapy Patient Instructions: Imaging studies, laboratory and physical exam results were discussed and reviewed in detail. No major barriers to patient understanding were identified. An opportunity to ask questions regarding the treatment plan was provided. All questions were answered. The patient expressed understanding and agreement with the above treatment plan. The patient is aware they should contact our office by phone for worsening of their current condition or the appearance of new urologic symptoms. Compliance is encouraged with any medications and followup testing that is ordered. It is a privilege to participate in the urologic care of your patient. If you have any questions or concerns regarding treatment for the above conditions, or other urologic issues, please do not hesitate to contact me. The office telephone contact is [phone]. This note is constructed using voice recognition software. While every effort has been made to ensure accuracy web manager errors may have been included. Yours sincerely, Dr Humberto Clark MD, [facility] - Urology Providers of Expert, Compassionate Care for the Genitourinary System Coding Level of Care Code Est Pt Level 3 (32461) Diagnoses Renal cell carcinoma of right kidney C64.1 Laterality: right
[2022-01-29 10:09] VITALS: BP 120/70; PULSE 77; RESP 18; BMI 19.9
== END 2022-01-29 10:45 | disposition home or self-care (01) ==
LOC: HO.HUSH 09:46
PROVIDERS: PCP Nurse Practitioner Family; Visit Provider Urology
DX: C64.1 Malignant neoplasm of right kidney, except renal pelvis (principal)
CPT/HCPCS: 99499

== ENCOUNTER → 2022-02-13 08:54 | Outpatient (REF) | payer OTHER, SELFPAY ==
--- NOTE | ~2022-02-13 | NM_ITS ---
Exercise Myocardial perfusion study Indication: Ventricular tachycardia to evaluate for myocardial ischemia Technique: The patient was brought in for an exercise perfusion study on 02/13/2002. Patient performed exercise as per Tyson protocol and was injected 25 mCi of sestamibi was given intravenously one target HR was achieved. Images were obtained using the SPECT gamma camera interlaced with the gating device. Images were obtained in supine position. Resting perfusion study was performed on 02/17/2002. Patient was administered 25 mCi of sestamibi intravenously at rest. Images were then obtained in supine position. Images obtained with and without CT attenuation. Total DLP 89 mGy-cm. Images were processed with the software and compared side to side in short axis, horizontal long axis and vertical long axis views. Findings: The stress perfusion study showed non attenuated images show minimal thinning of the distal lateral wall of the LV myocardium. Remainder of the LV myocardium is normally perfused. Attenuation corrected images show mildly reduced uptake in the apex of the LV myocardium. The gated study shows normal LV systolic function with visually estimated LVEF of greater than 60%. LV cavity is normal in size. The gated study shows normal systolic wall thickening and contraction of all segments. There is no transient ischemic dilation. Resting study shows no change in perfusion pattern compared to stress perfusion study. Gating at rest reveals normal systolic wall motion with ejection fraction at 60%. The findings are consistent with normal myocardial perfusion. NM/NM cardiolite stress test Impression: 1. Normal myocardial perfusion 2. Gated LVEF is 60% 3. Transient ischemic dilatation not present Stress EKG is negative for ischemia
--- NOTE | 2022-02-13 08:57 | CA_ITS ---
Acquisition Time: 2022-02-13 09:07:27 Total Exercise Time: 00:05:00 Test Indications: SVT Medications: Protocol: SHALA Max HR: 134 BPM 89% of Pred: 149 BPM Max BP: 136/078 mmHG Max Work Load: 6.2 METS Exercise stress test with exercise 5 min of Shala protocol, ( speed reduced to 2.2 MPH for last minute) with mild sob, no chest discomfort, with request to stop due to leg fatigue, without arrythmia, with normotensive response to exercise, without EKG changes meeting criteria for ischemia. Nuclear images pending. Test reviewed with Dr Palomino. Referred By: Lj Hogue Overread By: ROSETTA ERICKSON
== END ==
LOC: HO.CARD 08:54
PROVIDERS: PCP Nurse Practitioner Family; Visit Provider Internal Medicine
DX: I47.2 Ventricular tachycardia (principal)
CPT/HCPCS: 78452; 93017; A9500

== ENCOUNTER 2022-03-26 09:37 | Inpatient (IN) | payer OTHER, SELFPAY ==
--- NOTE | ~2022-03-26 | XR_ITS ---
EXAMINATION: XR CHEST CLINICAL INFORMATION: Shortness of breath. COMPARISON: 01/02/2022 chest radiograph. TECHNIQUE: 2 views of the chest were obtained. FINDINGS: No significant abnormality is noted involving the heart, lungs, mediastinum, bony thorax or soft tissues. XR/XR chest 2V IMPRESSION: No acute cardiopulmonary process.
--- NOTE | ~2022-03-26 | CT_ITS ---
EXAMINATION: CT ANGIOGRAM OF THE CHEST WITH AND WITHOUT CONTRAST (CT PULMONARY ANGIOGRAM FOR PE) CLINICAL INFORMATION: Dyspnea on exertion, history of metastatic colon adenocarcinoma. COMPARISON: PET/CT scan dated 10/21/2021, CT chest dated 09/03/2021. TECHNIQUE: Prior to contrast administration, noncontrast localization images were obtained. Subsequently, multidetector volumetric imaging was performed from the thoracic inlet to below the diaphragms following the administration of 80 mL Omnipaque 350 intravenous contrast. No contrast reaction reported Sagittal, coronal, and MIP oblique sagittal reformatted images were obtained on the CT workstation, uploaded to PACS, and reviewed. This CT examination was performed using dose optimization techniques as appropriate, variously including the following: *Automated exposure control *Adjustment of mA and/or kV according to patient size (this includes techniques or standardized protocols for targeted exams where dose is matched to indication/reason for exam; i.e. extremities or head) *Use of iterative reconstruction technique Total exam dose-length product 263 mGy-cm FINDINGS: QUALITY OF STUDY/CONTRAST BOLUS: Satisfactory. PULMONARY ARTERIES: Filling defects are seen extending extending from the inferior aspect of the right interlobar artery into segmental and subsegmental branches most pronounced into the posterior and lateral segments. A filling defect is seen to a lesser extent in the left interlobar artery without significant extension distally. THORACIC AORTA: No aneurysm or dissection. LUNGS/PLEURA/AIRWAYS: Multiple irregular pulmonary nodules are again seen. Sales Inspector nodules are as follows: Right upper lobe, perihilar: 1.3 x 1.0 cm (previously 1.6 x 1.5 cm), image 304, series 7 Left lower lobe, anterior: 1.1 x 0.5 cm (previously 1.5 x 1.4 cm), image 347, series 7 Left upper lobe, posteroinferior: 0.8 x 0.6 cm (previously 1.3 x 1.1 cm), image 348, series 7 Right lower lobe, posterolateral: 0.9 x 0.6 cm (previously 1.6 x 1.6 cm), image 408, series 7 Right middle lobe, inferior: 0.9 x 0.8 cm (previously 1.0 x 1.0 cm), image 416, series 7 No pleural effusions. The airways are patent. MEDIASTINUM: No thyroid abnormality. Normal heart size. No pericardial effusion. No hilar or mediastinal lymphadenopathy. No evidence of septal bowing or right heart strain. CHEST WALL/AXILLA: No axillary or internal mammary lymphadenopathy. OSSEOUS STRUCTURES: No acute or suspicious osseous abnormality. UPPER ABDOMEN: No significant abnormality or change. No reflux of contrast into the hepatic veins to suggest elevated right heart pressures. CT/CT angio chest PE protocol IMPRESSION: 1. Positive pulmonary emboli most pronounced in the right lower lobe as detailed above. 2. Multiple pulmonary nodules demonstrate interval decrease in size compared to the previous PET CT scan. VTE: positive This critical result was discussed with Dr. Tanisha Garcia at 2:40 PM on 03/26/2022 and it was ascertained that the content and urgency of the report was understood at the time of direct communication.
--- NOTE | 2022-03-26 09:45 | ECG_ITS ---
Test Reason : weakness Blood Pressure : / mmHG Vent. Rate : 087 BPM Atrial Rate : 087 BPM P-R Int : 144 ms QRS Dur : 088 ms QT Int : 386 ms P-R-T Axes : 086 056 079 degrees QTc Int : 464 ms Normal sinus rhythm Right atrial enlargement Borderline ECG When compared with ECG of 02-JAN-2022 08:48, No significant change was found Referred By: Tanisha Garcia Electronically Signed By:HARJEET WICK
--- NOTE | 2022-03-26 09:51 | ED_ITS ---
HPI - Weakness General Chief complaint: Dizziness Stated complaint: diff breathing, trouble walking Time Seen by Provider: 03/26/22 09:42 Source: patient Mode of arrival: wheelchair Limitations: no limitations History of Present Illness HPI Narrative: 71-year-old male with a history of metastatic colorectal adenocarcinoma s/p palliative rectosigmoid resection with colostomy, hx clear cell renal cell carcinoma, hx orthostatic hypotension, HSVT, HTN, hx COVID in December requiring hospitalization who presents to the ER for evaluation of generalized weakness and SOB in the setting of increased colostomy output for the last 5-6 days. He is on chemotherapy regimen with Dr. Cisneros where he gets intravenous chemothe rapy followed by daily oral chemotherapy. Patient reports with few days into taking his oral medication he usually develops significant increase in his ostomy output for which he takes Imodium. He reports Imodium isn't working this time. His stool is black to tadeo, he is on iron supplements. He already emptied his ostomy twice this morning for liquid tadeo/black stool. He reports intermittent abdominal cramping associated with this that last only about 10 seconds but no significant abdominal pain. He reports significant dyspnea on exertion as of late. No SOB at rest. He denies any chest pain. MD Complaint: generalized weakness Onset (ago): day(s) (5-6) Duration: intermittent and progressively worsening Location: generalized Migration: none Severity: moderate Relieving factors: rest Exacerbating factors: movement and exertion Context: history of similar Associated symptoms: dark stools, loss of appetite and shortness of breath Related Data Home Medications Medication Instructions Recorded Confirmed ascorbate calcium (vitamin C) 500 500 mg PO DAILY 10/09/21 03/26/22 mg tablet ferrous sulfate 325 mg (65 mg 325 mg PO DAILY 10/09/21 03/26/22 iron) tablet capecitabine 500 mg tablet 1,500 mg PO BID 01/29/22 03/26/22 dexamethasone 4 mg tablet 4 mg PO BID 01/29/22 03/26/22 Previous Rx's Medication Instructions Recorded ondansetron 8 mg disintegrating 8 mg PO Q8H PRN Nausea #30 tabs 11/05/21 tablet metoprolol tartrate 25 mg tablet 12.5 mg PO BID #30 tabs 01/09/22 midodrine 5 mg tablet 5 mg PO TID #90 tabs 01/09/22 Allergies Allergy/AdvReac Type Severity Reaction Status Date / Time No Known Allergies Allergy Verified 03/04/22 10:37 Review of Systems Review of Systems: Constitutional: No Fever, No Chills ENT/Mouth: No sore throat, No Rhinorrhea, No Swallowing Difficulty Eyes: No Eye Pain, No Swelling, No Redness Cardiovascular: No Chest Pain, No SOB, No Orthopnea, No Edema Respiratory: No Cough, No Sputum, No Wheezing, + dyspnea Gastrointestinal: No Nausea, No Vomiting, + Diarrhea, No abdominal Pain, No Hematochezia, No Melena Genitourinary: No Dysuria, No Urinary Frequency, No Hematuria Musculoskeletal: No joint pain, + Myalgias Skin: No Skin Lesions, No rash Neuro: + Weakness, No Numbness, + Dizziness, No Headache Psych: No Anxiety/Panic, No Depression Heme/Lymph: No Bruising, No Lymphadenopathy Endocrine: No Polyuria, No Polydipsia PMFSH Past Medical History Medical History (Updated 03/26/22 @ 14:47 by VITO King) [place]-vesical fistula Colonic mass Colostomy in place HTN (hypertension) Kidney mass No family history of cancer Surgical History History of surgery S/P colon resection Family History Family History Mother Parkinsons disease Father ESRD (end stage renal disease) Other No family history of cancer Social History Social History Household Members: Spouse and Children Housing: House Are you a primary after school caregiver to a significant other at home: No Do you presently have visiting nurse or other home services: No Alcohol intake: former Patient Tobacco Use Status: Former Tobacco user Years Smoked: quit 1989 e-Cigarette/Vaping Use: Never Used Second Hand Smoke Exposure: No Use of substances other than those prescribed or required for medical reasons: No Advance Directives: No Advance Directives Information Provided: No service: Yes ( ) Current occupational status: employed and retired Cognitive needs: No Hearing needs: No Vision needs: No Physical Exam Vital Signs: Vital Signs: Last Vital Signs Temp 97.8 F 03/26/22 11:31 Pulse 97 03/26/22 14:59 Resp 12 03/26/22 14:59 BP 166/76 H 03/26/22 14:59 Pulse Ox 99 03/26/22 14:59 O2 Del Method 03/26/22 14:59 BMI result Body Mass Index 19.5 Appearance: Alert. Oriented X3. No acute distress. Eyes: Pupils equal, round and reactive to light. mild conjuncitval pallor ENT: Pharynx normal. Neck: Normal inspection. Neck supple. CVS: Normal heart rate and rhythm. Pulses normal. Respiratory: No respiratory distress. Breath sounds normal. Abdomen: Soft and nontender, colostomsy in place in LLQ, liquid mckeon stools, hyperactive +BS x4 Skin: Skin warm and dry. Normal skin color. Normal skin turgor. No rashes. Extremities: No lower extremity edema. Neuro: Oriented X 3. No motor deficit. No sensory deficit. Normal speech and cognition. Nonfocal Course Course Course Narrative: 71-year-old male with a history of metastatic colorectal adenocarcinoma status post colostomy on chemotherapy who presents to the ER for evaluation of generalized weakness, dyspnea on exertion and increased ostomy output for the last 5 or 6 days. On arrival to the ER today he is slightly tachycardic heart rate 100. He is hemodynamically stable, afebrile. There is concern for possible GI bleeding with the appearance of his stools and his exertional dyspnea. There is also concern for possible pulmonary embolism given his dyspnea on exertion and tachycardia. Reevaluation(s) Reevaluation #1: Labs are unremarkable with minimal metabolic abnormalities despite high ostomy output. He has changed his ostomy bag twice here, twice this morning prior to arrival. GI PCR Panel and C diff ordered. Additional liter of IVF also ordered, no UOP yet. Normal renal function, will get CTA to r/o PE. Anticipate admission. Reevaluation #2: Received critical result from [facility], patient has positive DVT, mostly in the right lower lobe. Pulmonary nodules have decreased in size. Will start the patient on Lovenox given his cancer history. Will admit to the hospital for further management. GI PCR is negative, will redose the Imodium MDM - Weakness Medical Records Attestation: I reviewed the patient's medical records. Lab Data Attestation: I reviewed the patient's lab results. Result diagrams: 03/26/22 11:18 03/26/22 11:18 Labs: Lab Results 03/26/22 03/26/22 03/26/22 Range/Units 11:18 11:18 11:18 WBC 4.4 L (4.8-10.8) X10*3/uL RBC 4.27 L (4.60-5.80) X10*6/uL Hgb 13.8 L (14.0-18.0) g/dl Hct 42.3 (42.0-52.0) % MCV 99.1 H (80.0-98.0) fL MCH 32.3 (27.0-33.0) pg MCHC 32.6 (31.0-36.0) g/dl RDW 17.9 H (11.0-16.0) % Plt Count 273 (160-400) X10*3/uL MPV 9.9 (9.4-12.4) fL Immature Gran % (Auto) 0.2 (0.0-0.4) % Neut % (Auto) 56.5 (45-73) % Lymph % (Auto) 26.1 (20-40) % [place] % (Auto) 16.5 H (2-11) % Eos % (Auto) 0.2 (0-4) % Baso % (Auto) 0.5 (0-2) % Lymph # (Auto) 1.1 L (1.2-4.9) X10*3/uL [place] # (Auto) 0.7 (0.1-1.2) X10*3/uL Eos # (Auto) 0.0 (0.0-0.4) X10*3/uL Baso # (Auto) 0.0 (0.0-0.2) X10*3/uL Abs Immat Gran (auto) 0.01 (0.00-0.03) X10*3/uL Absolute Neuts (auto) 2.5 (2.0-8.3) x10*3/uL Absolute Nucleated RBC 0.000 (0.0-0.012) X10*3/uL Nucleated RBC % (auto) 0.0 (0.0-0.2) /100WBC PT 13.1 (10.0-13.1) SEC INR 1.1 (0.9-1.1) APTT 31.4 (26.0-36.4) SEC VBG pH (7.32-7.43) VBG pCO2 mmHg VBG pO2 mmHg VBG HCO3 (22-26) mmol/L VBG O2 Saturation % VBG Base Excess mmol/L Sodium 140 (135-145) mmol/L Potassium 4.0 (3.3-5.1) mmol/L Chloride 105 (96-108) mmol/L Carbon Dioxide 22 (22-29) mmol/L Anion Gap 17 (12-20) BUN 24 H (9-16) mg/dL Creatinine 0.94 (0.5-1.4) mg/dL Estim Creat Clear Calc 68.6 Estimated GFR > 60 Random Glucose 122 H (60-115) mg/dL Calcium 9.0 (8.4-10.2) mg/dL Magnesium 1.9 (1.6-2.6) mg/dL Total Bilirubin 1.2 H (0.0-1.0) mg/dL Direct Bilirubin 0.6 H (0.0-0.5) mg/dL AST 27 (5-37) U/L ALT 31 (0-40) U/L Alkaline Phosphatase 124 H (39-117) U/L Total Creatine Kinase 15 L (38-174) U/L Troponin I High Sens (<3.5-35.0) ng/L B-Natriuretic Peptide (<100) pg/mL Total Protein 6.1 L (6.5-8.0) g/dL Albumin 3.8 (3.5-5.0) g/dL Procalcitonin ng/mL Stl C. cayetanensis PCR (Not Detect.) Stool Rotavirus A PCR (Not Detect.) Stl Adenov F 40/41 PCR (Not Detect.) Stool Astrovirus (PCR) (Not Detect.) Stool Campylobacter PCR (Not Detect.) Stool Cryptosporidium PCR (Not Detect.) Stl Sh Tox Pr E STEC PCR (Not Detect.) Stool E coli O157 PCR (Not Detect.) Stl Enterotoxigenic E PCR (Not Detect.) Stool EPEC (PCR) (Not Detect.) Stool EAEC (PCR) (Not Detect.) Stl E. histolytica PCR (Not Detect.) Stool Giardia Lamblia PCR (Not Detect.) Stl P. shigelloides PCR (Not Detect.) Stool Salmonella PCR (Not Detect.) Stool Sapovirus (PCR) (Not Detect.) Stl Shigella/EIEC PCR (Not Detect.) St Y.enterocolitica PCR (Not Detect.) Stool Vibrio (PCR) (Not Detect.) Stl Vibrio cholerae PCR (Not Detect.) Stl Norovirus GI/GII PCR (Not Detect.) C. difficile Tox B Gene (Negative) COVID-19 (JAS) (Negative) COVID-19 Clin Com 03/26/22 03/26/22 03/26/22 Range/Units 11:18 11:18 11:18 WBC (4.8-10.8) X10*3/uL RBC (4.60-5.80) X10*6/uL Hgb (14.0-18.0) g/dl Hct (42.0-52.0) % MCV (80.0-98.0) fL MCH (27.0-33.0) pg MCHC (31.0-36.0) g/dl RDW (11.0-16.0) % Plt Count (160-400) X10*3/uL MPV (9.4-12.4) fL Immature Gran % (Auto) (0.0-0.4) % Neut % (Auto) (45-73) % Lymph % (Auto) (20-40) % [place] % (Auto) (2-11) % Eos % (Auto) (0-4) % Baso % (Auto) (0-2) % Lymph # (Auto) (1.2-4.9) X10*3/uL [place] # (Auto) (0.1-1.2) X10*3/uL Eos # (Auto) (0.0-0.4) X10*3/uL Baso # (Auto) (0.0-0.2) X10*3/uL Abs Immat Gran (auto) (0.00-0.03) X10*3/uL Absolute Neuts (auto) (2.0-8.3) x10*3/uL Absolute Nucleated RBC (0.0-0.012) X10*3/uL Nucleated RBC % (auto) (0.0-0.2) /100WBC PT (10.0-13.1) SEC INR (0.9-1.1) APTT (26.0-36.4) SEC VBG pH (7.32-7.43) VBG pCO2 mmHg VBG pO2 mmHg VBG HCO3 (22-26) mmol/L VBG O2 Saturation % VBG Base Excess mmol/L Sodium (135-145) mmol/L Potassium (3.3-5.1) mmol/L Chloride (96-108) mmol/L Carbon Dioxide (22-29) mmol/L Anion Gap (12-20) BUN (9-16) mg/dL Creatinine (0.5-1.4) mg/dL Estim Creat Clear Calc Estimated GFR Random Glucose (60-115) mg/dL Calcium (8.4-10.2) mg/dL Magnesium (1.6-2.6) mg/dL Total Bilirubin (0.0-1.0) mg/dL Direct Bilirubin (0.0-0.5) mg/dL AST (5-37) U/L ALT (0-40) U/L Alkaline Phosphatase (39-117) U/L Total Creatine Kinase (38-174) U/L Troponin I High Sens 6.1 (<3.5-35.0) ng/L B-Natriuretic Peptide 18 (<100) pg/mL Total Protein (6.5-8.0) g/dL Albumin (3.5-5.0) g/dL Procalcitonin 0.12 ng/mL Stl C. cayetanensis PCR (Not Detect.) Stool Rotavirus A PCR (Not Detect.) Stl Adenov F 40/41 PCR (Not Detect.) Stool Astrovirus (PCR) (Not Detect.) Stool Campylobacter PCR (Not Detect.) Stool Cryptosporidium PCR (Not Detect.) Stl Sh Tox Pr E STEC PCR (Not Detect.) Stool E coli O157 PCR (Not Detect.) Stl Enterotoxigenic E PCR (Not Detect.) Stool EPEC (PCR) (Not Detect.) Stool EAEC (PCR) (Not Detect.) Stl E. histolytica PCR (Not Detect.) Stool Giardia Lamblia PCR (Not Detect.) Stl P. shigelloides PCR (Not Detect.) Stool Salmonella PCR (Not Detect.) Stool Sapovirus (PCR) (Not Detect.) Stl Shigella/EIEC PCR (Not Detect.) St Y.enterocolitica PCR (Not Detect.) Stool Vibrio (PCR) (Not Detect.) Stl Vibrio cholerae PCR (Not Detect.) Stl Norovirus GI/GII PCR (Not Detect.) C. difficile Tox B Gene (Negative) COVID-19 (JAS) Negative (Negative) COVID-19 Clin Com See Note 03/26/22 03/26/22 03/26/22 Range/Units 11:22 13:22 13:22 WBC (4.8-10.8) X10*3/uL RBC (4.60-5.80) X10*6/uL Hgb (14.0-18.0) g/dl Hct (42.0-52.0) % MCV (80.0-98.0) fL MCH (27.0-33.0) pg MCHC (31.0-36.0) g/dl RDW (11.0-16.0) % Plt Count (160-400) X10*3/uL MPV (9.4-12.4) fL Immature Gran % (Auto) (0.0-0.4) % Neut % (Auto) (45-73) % Lymph % (Auto) (20-40) % [place] % (Auto) (2-11) % Eos % (Auto) (0-4) % Baso % (Auto) (0-2) % Lymph # (Auto) (1.2-4.9) X10*3/uL [place] # (Auto) (0.1-1.2) X10*3/uL Eos # (Auto) (0.0-0.4) X10*3/uL Baso # (Auto) (0.0-0.2) X10*3/uL Abs Immat Gran (auto) (0.00-0.03) X10*3/uL Absolute Neuts (auto) (2.0-8.3) x10*3/uL Absolute Nucleated RBC (0.0-0.012) X10*3/uL Nucleated RBC % (auto) (0.0-0.2) /100WBC PT (10.0-13.1) SEC INR (0.9-1.1) APTT (26.0-36.4) SEC VBG pH 7.32 (7.32-7.43) VBG pCO2 44 mmHg VBG pO2 37 mmHg VBG HCO3 23 (22-26) mmol/L VBG O2 Saturation 51.0 % VBG Base Excess -2.4 mmol/L Sodium (135-145) mmol/L Potassium (3.3-5.1) mmol/L Chloride (96-108) mmol/L Carbon Dioxide (22-29) mmol/L Anion Gap (12-20) BUN (9-16) mg/dL Creatinine (0.5-1.4) mg/dL Estim Creat Clear Calc Estimated GFR Random Glucose (60-115) mg/dL Calcium (8.4-10.2) mg/dL Magnesium (1.6-2.6) mg/dL Total Bilirubin (0.0-1.0) mg/dL Direct Bilirubin (0.0-0.5) mg/dL AST (5-37) U/L ALT (0-40) U/L Alkaline Phosphatase (39-117) U/L Total Creatine Kinase (38-174) U/L Troponin I High Sens (<3.5-35.0) ng/L B-Natriuretic Peptide (<100) pg/mL Total Protein (6.5-8.0) g/dL Albumin (3.5-5.0) g/dL Procalcitonin ng/mL Stl C. cayetanensis PCR Not Detected (Not Detect.) Stool Rotavirus A PCR Not Detected (Not Detect.) Stl Adenov F 40/41 PCR Not Detected (Not Detect.) Stool Astrovirus (PCR) Not Detected (Not Detect.) Stool Campylobacter PCR Not Detected (Not Detect.) Stool Cryptosporidium PCR Not Detected (Not Detect.) Stl Sh Tox Pr E STEC PCR Not Detected (Not Detect.) Stool E coli O157 PCR Not applicable (Not Detect.) Stl Enterotoxigenic E PCR Not Detected (Not Detect.) Stool EPEC (PCR) Not Detected (Not Detect.) Stool EAEC (PCR) Not Detected (Not Detect.) Stl E. histolytica PCR Not Detected (Not Detect.) Stool Giardia Lamblia PCR Not Detected (Not Detect.) Stl P. shigelloides PCR Not Detected (Not Detect.) Stool Salmonella PCR Not Detected (Not Detect.) Stool Sapovirus (PCR) Not Detected (Not Detect.) Stl Shigella/EIEC PCR Not Detected (Not Detect.) St Y.enterocolitica PCR Not Detected (Not Detect.) Stool Vibrio (PCR) Not Detected (Not Detect.) Stl Vibrio cholerae PCR Not Detected (Not Detect.) Stl Norovirus GI/GII PCR Not Detected (Not Detect.) C. difficile Tox B Gene NEGATIVE (Negative) COVID-19 (JAS) (Negative) COVID-19 Clin Com ECG Data Attestation: I personally reviewed and interpreted this ECG as follows: ECG interpretation date: 03/26/22 ECG interpretation time: 11:26 Prior ECG tracings: available for review Interpretation: Normal sinus rhythm, ventricular rate 87 beats per minute, normal OR interval, normal QT RS, normal QTC. No ST segment elevations or depressions. Critical Care Time Critical Care Time Critical Care Time: Yes Total Critical Care Time: 36 Attestation: I have personally provided critical care time exclusive of time spent on separately billable procedures. Time includes review of lab data, radiology results, discussion with consultants, and monitoring for potential decompensation. Intervention performed as documented. Discharge Plan Discharge Clinical Impression: Chemotherapy-induced diarrhea, Pulmonary embolism, ANDREW (dyspnea on exertion), Weakness Patient Disposition: Admitted As Inpatient
[2022-03-26 10:07] VITALS: BP 122/87; PULSE 100; RESP 18; TEMP 36.6; O2SAT 100; BMI 19.5
[2022-03-26 11:23] LABS: MANUAL DIFF FLAG NO
[2022-03-26 11:26] LABS: Basophils Percent Auto 0.5 % (0-2); Eosinophils Percent Auto 0.2 % (0-4); Hematocrit 42.3 % (42.0-52.0); Hemoglobin 13.8 g/dl (14.0-18.0); Imm Gran Abs Auto 0.01 X10*3/uL (0.00-0.03); Imm Gran Pct Auto 0.2 % (0.0-0.4); Lymphocytes Absolute Auto 1.1 X10*3/uL (1.2-4.9); Lymphocytes Percent Auto 26.1 % (20-40); Mean Corpuscular HGB Conc 32.6 g/dl (31.0-36.0); Mean Corpuscular Hemoglobin 32.3 pg (27.0-33.0); Mean Corpuscular Volume 99.1 fL (80.0-98.0); Mean Platelet Volume 9.9 fL (9.4-12.4); Monocytes Absolute Auto 0.7 X10*3/uL (0.1-1.2); Monocytes Percent Auto 16.5 % (2-11); Neutrophils Absolute Auto 2.5 x10*3/uL (2.0-8.3); Neutrophils Percent Auto 56.5 % (45-73); Platelet Count 273 X10*3/uL (160-400); Red Blood Count 4.27 X10*6/uL (4.60-5.80); Red Cell Distribution Width 17.9 % (11.0-16.0); White Blood Count 4.4 X10*3/uL (4.8-10.8)
[2022-03-26] MEDS: 0.9 % Sodium Chloride 1,000 ML 999 ML IVCONT ×2 (11:26→13:27)
[2022-03-26 11:27] LABS: VBG Base Excess -2.4 mmol/L; VBG HCO3 23 mmol/L (22-26); VBG pCO2 44 mmHg; VBG pH 7.32 (7.32-7.43); VBG pO2 37 mmHg
[2022-03-26 11:28] LABS: Venous Blood Gas Refer to POC result
[2022-03-26 11:31] VITALS: BP 134/72; PULSE 80; RESP 17; TEMP 36.6; O2SAT 97
[2022-03-26 11:31] LABS: INTERNATIONAL NORM RATIO 1.1 (0.9-1.1); Prothrombin Time 13.1 SEC (10.0-13.1)
[2022-03-26 11:34] LABS: Partial Thromboplastin Time 31.4 SEC (26.0-36.4)
--- NOTE | 2022-03-26 11:43 | PC.NURSE ---
Patient came in experiencing dizziness. VS are stable, monitor and storage bin tender is on- nsr, IV and labs were completed, IVF running by order. the swallowing eval performed. Coloctomy stoma is beefy red, liquid stool noticed and a/o x 4.
[2022-03-26 11:45] LABS: Alanine Aminotransferase 31 U/L (0-40); Albumin Level 3.8 g/dL (3.5-5.0); Alkaline Phosphatase 124 U/L (39-117); Anion Gap 17 (12-20); Aspartate Amino Transferase 27 U/L (5-37); Bilirubin Direct 0.6 mg/dL (0.0-0.5); Bilirubin Total 1.2 mg/dL (0.0-1.0); Blood Urea Nitrogen 24 mg/dL (9-16); Carbon Dioxide 22 mmol/L (22-29); Chloride 105 mmol/L (96-108); Creatinine Clr Calc Pharmacy 68.6; Estimated Glomerular Filt Rate > 60; Glucose Random 122 mg/dL (60-115); Magnesium 1.9 mg/dL (1.6-2.6); Sodium 140 mmol/L (135-145); Total Protein 6.1 g/dL (6.5-8.0)
[2022-03-26 11:48] LABS: COVID-19 Test Negative (Negative)
[2022-03-26 11:52] LABS: B Type Natriuretic Peptide 18 pg/mL (<100); Troponin-I High Sensitivity 6.1 ng/L (<3.5-35.0)
[2022-03-26 12:06] LABS: Procalcitonin 0.12 ng/mL
--- NOTE | 2022-03-26 12:58 | PHA.MEDREC ---
Pharmacy Consult ? Medication Reconciliation Pharmacy has completed the medication reconciliation. Patients had list at bedside, most medications taken in regards to patients chemotherapy regimen.
[2022-03-26] MEDS: Loperamide HCl 2 MG CAPSULE 4 MG PO (13:27)
--- NOTE | 2022-03-26 13:28 | PC.NURSE ---
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 and stool culture was collected.
[2022-03-26] MEDS: iohexoL 350 MG/ML 75 ML INFUS..BTL 65 ML IV (13:38)
[2022-03-26 14:00] VITALS: BP 152/84; PULSE 92; RESP 12; O2SAT 100
[2022-03-26 14:39] LABS: CDiff Gene PCR NEGATIVE (Negative)
[2022-03-26] MEDS: Enoxaparin Sodium 80 MG/0.8 ML SYRINGE 70 MG SUBCUT (14:55)
[2022-03-26 14:59] VITALS: BP 166/76; PULSE 97; RESP 12; O2SAT 99
--- NOTE | 2022-03-26 15:08 | PC.NURSE ---
pt medicated per order
[2022-03-26 15:15] LABS: Adenovirus F 40/41 Not Detected (Not Detect.); Astrovirus Not Detected (Not Detect.); Campylobacter Not Detected (Not Detect.); Cryptosporidium Not Detected (Not Detect.); Cyclospora cayetanensis Not Detected (Not Detect.); E. coli EAEC Not Detected (Not Detect.); E. coli EPEC Not Detected (Not Detect.); E. coli ETEC Not Detected (Not Detect.); E. coli STEC Not Detected (Not Detect.); Entamoeba histolytica Not Detected (Not Detect.); Giardia lamblia Not Detected (Not Detect.); Norovirus GI/GII Not Detected (Not Detect.); Plesiomonas shigelloides Not Detected (Not Detect.); Rotavirus A Not Detected (Not Detect.); Salmonella Not Detected (Not Detect.); Sapovirus Not Detected (Not Detect.); Shigella sp./EIEC Not Detected (Not Detect.); Vibrio Not Detected (Not Detect.); Vibrio Cholerae Not Detected (Not Detect.); Yersinia enterocolitica Not Detected (Not Detect.)
[2022-03-26 15:57] VITALS: BP 98/83; PULSE 89; RESP 16; TEMP 37.1; O2SAT 99
[2022-03-26] MEDS: Loperamide HCl 2 MG CAPSULE PO ×3 (15:59→20:21)
--- NOTE | 2022-03-26 16:00 | PC.NURSE ---
Patient's vs are stable, roping tender demonstrate NSR. patient was provided meds as order.
--- NOTE | 2022-03-26 16:59 | P.HPHOSP_ITS ---
History of Present Illness Date of Service: 03/26/22 Attending physician on admission: Tray Canales Chief Complaint: High colostomy output/shortness of breath 71-year-old gentleman with past medical history is significant for renal and colon cancer status post colon resection and ostomy currently receiving IV and by mouth chemotherapy by Dr. Cisneros presented to [facility] due to high colostomy output times 4-5 days, his last chemo dose was 2 days ago, he denies associated nausea vomiting he does get abdominal g prior to diarrhea, he denies fever chills denies recent use of antibiotics patient has been using Imodium 3 times a day without significant improvement patient also noted to have dyspnea on exertion for last several days prior to that he was walking a mile, fishing, and mowing his lawn without difficulty, he denied associated cough or sputum production, workup in the emergency room included a CTA chest that showed PE, stool studies are negative , electrolytes stable BUN elevated at 24 under blood sugar 122, patient received 1 dose of Lovenox in the emergency room as well as Imodium but since patient noted to have persistent profuse watery stool in colostomy bag since arrival to ER for bags have been changed therefore patient is being admitted for continued monitoring and treatment for fluid management. 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 HTN (hypertension) Kidney mass No family history of cancer Family History Mother Parkinsons disease Father ESRD (end stage renal disease) Other No family history of cancer Surgical History History of surgery S/P colon resection Social History Household Members: Spouse and Children Housing: House Are you a primary resident care aide to a significant other at home: No Do you presently have visiting nurse or other home services: No Alcohol intake: former Patient Tobacco Use Status: Former Tobacco user Years Smoked: quit 1989 e-Cigarette/Vaping Use: Never Used Second Hand Smoke Exposure: No Use of substances other than those prescribed or required for medical reasons: No Advance Directives: No Advance Directives Information Provided: No service: Yes ( ) Current occupational status: employed and retired Cognitive needs: No Hearing needs: No Vision needs: No Meds Allergies Allergy/AdvReac Type Severity Reaction Status Date / Time No Known Allergies Allergy Verified 03/04/22 10:37 Active Medications: Current Medications Acetaminophen (Acetaminophen 325 Mg Tablet) 650 mg PO Q6H PRN PRN Reason: Pain, Mild (Pain Scale 1-3) Ascorbic Acid (Ascorbic Acid 500 Mg Tablet) 500 mg PO DAILY [facility] Enoxaparin Sodium (Enoxaparin Sodium 80 Mg/0.8 Ml Syringe) 70 mg 1 mg/kg (70 mg) SUBCUT Q12H [facility] Last Admin: 03/26/22 14:55 Dose: 70 mg Melatonin (Melatonin 3 Mg Tablet) 6 mg PO BEDTIME PRN PRN Reason: Insomnia Metoprolol Tartrate (Metoprolol Tartrate 12.5 Mg Halftab) 12.5 mg PO BID [facility]; Protocol Midodrine (Midodrine Hcl 5 Mg Tablet) 5 mg PO TID [facility] Non-Formulary Medication (Ferrous Sulfate) 325 mg PO DAILY [facility] Ondansetron HCl (Ondansetron Hcl 4 Mg/2 Ml Vial) 4 mg IVPUSH Q8H PRN PRN Reason: Nausea and Vomiting Pharmacy Consult (Consult Rx Perform Med Rec) 1 each MISCELLANE ONCE PRN PRN Reason: Consult order Sodium Chloride (0.9 % Sodium Chloride Flush 3 Ml Syringe) 3 ml IVFLUSH QSHIFT [facility] Home Medications Medication Instructions Recorded Confirmed Last Taken Type ascorbate calcium (vitamin C) 500 500 mg PO DAILY 10/09/21 03/26/22 Unknown History mg tablet ferrous sulfate 325 mg (65 mg 325 mg PO DAILY 10/09/21 03/26/22 Unknown History iron) tablet capecitabine 500 mg tablet 1,500 mg PO BID 01/29/22 03/26/22 Unknown History dexamethasone 4 mg tablet 4 mg PO BID 01/29/22 03/26/22 Unknown History Physical Exam Vital Signs and Narrative: Vital Signs: Last Vital Signs Temp 98.8 F 03/26/22 15:57 Pulse 89 03/26/22 15:57 Resp 16 03/26/22 15:57 BP 98/83 03/26/22 15:57 Pulse Ox 99 03/26/22 15:57 O2 Del Method 03/26/22 15:57 BMI result Body Mass Index 19.5 Const: Other: Constitutional :?frail appearing, awake alert in no distress HEENT PERRLA, anicteric sclerae Neck : Normal inspection,? no JVD Cardiovascular : RRR, Respiratory :? clear to auscultate? no crackles, wheezes or rhonchi Gastrointestinal:? soft, Normal bowel sounds, Non tender, ostomy in place with green?liquidy stool Skin : Warm, Dry, brown discoloration of left thigh without associated redness or swelling question related to sun exposure Extremities no edema Neurological : Alert & oriented x3, No focal deficit , CN 2-12 within normal psych appropriate affect Results Labs CBC and Chem 7: 03/26/22 11:18 03/26/22 11:18 Labs: Laboratory Results - last 24 hr 03/26/22 03/26/22 03/26/22 11:18 11:18 11:18 MCV 99.1 H MCH 32.3 MCHC 32.6 RDW 17.9 H Plt Count 273 MPV 9.9 Immature Gran % (Auto) 0.2 Neut % (Auto) 56.5 Lymph % (Auto) 26.1 Victoria % (Auto) 16.5 H Eos % (Auto) 0.2 Baso % (Auto) 0.5 Lymph # (Auto) 1.1 L Victoria # (Auto) 0.7 Eos # (Auto) 0.0 Baso # (Auto) 0.0 Abs Immat Gran (auto) 0.01 Absolute Neuts (auto) 2.5 Absolute Nucleated RBC 0.000 Nucleated RBC % (auto) 0.0 PT 13.1 INR 1.1 APTT 31.4 VBG pH VBG pCO2 VBG pO2 VBG HCO3 VBG O2 Saturation VBG Base Excess Anion Gap 17 Estim Creat Clear Calc 68.6 Estimated GFR > 60 Random Glucose 122 H Calcium 9.0 Magnesium 1.9 Total Bilirubin 1.2 H Direct Bilirubin 0.6 H AST 27 ALT 31 Alkaline Phosphatase 124 H Total Creatine Kinase 15 L B-Natriuretic Peptide Total Protein 6.1 L Albumin 3.8 Procalcitonin Stl C. cayetanensis PCR Stool Rotavirus A PCR Stl Adenov F 40/41 PCR Stool Astrovirus (PCR) Stool Campylobacter PCR Stool Cryptosporidium PCR Stl Sh Tox Pr E STEC PCR Stool E coli O157 PCR Stl Enterotoxigenic E PCR Stool EPEC (PCR) Stool EAEC (PCR) Stl E. histolytica PCR Stool Giardia Lamblia PCR Stl P. shigelloides PCR Stool Salmonella PCR Stool Sapovirus (PCR) Stl Shigella/EIEC PCR St Y.enterocolitica PCR Stool Vibrio (PCR) Stl Vibrio cholerae PCR Stl Norovirus GI/GII PCR C. difficile Tox B Gene COVID-19 (JAS) COVID-19 Clin Com 03/26/22 03/26/22 03/26/22 11:18 11:18 11:18 MCV MCH MCHC RDW Plt Count MPV Immature Gran % (Auto) Neut % (Auto) Lymph % (Auto) Victoria % (Auto) Eos % (Auto) Baso % (Auto) Lymph # (Auto) Victoria # (Auto) Eos # (Auto) Baso # (Auto) Abs Immat Gran (auto) Absolute Neuts (auto) Absolute Nucleated RBC Nucleated RBC % (auto) PT INR APTT VBG pH VBG pCO2 VBG pO2 VBG HCO3 VBG O2 Saturation VBG Base Excess Anion Gap Estim Creat Clear Calc Estimated GFR Random Glucose Calcium Magnesium Total Bilirubin Direct Bilirubin AST ALT Alkaline Phosphatase Total Creatine Kinase B-Natriuretic Peptide 18 Total Protein Albumin Procalcitonin 0.12 Stl C. cayetanensis PCR Stool Rotavirus A PCR Stl Adenov F 40/41 PCR Stool Astrovirus (PCR) Stool Campylobacter PCR Stool Cryptosporidium PCR Stl Sh Tox Pr E STEC PCR Stool E coli O157 PCR Stl Enterotoxigenic E PCR Stool EPEC (PCR) Stool EAEC (PCR) Stl E. histolytica PCR Stool Giardia Lamblia PCR Stl P. shigelloides PCR Stool Salmonella PCR Stool Sapovirus (PCR) Stl Shigella/EIEC PCR St Y.enterocolitica PCR Stool Vibrio (PCR) Stl Vibrio cholerae PCR Stl Norovirus GI/GII PCR C. difficile Tox B Gene COVID-19 (JAS) Negative COVID-19 Clin Com See Note 03/26/22 03/26/22 03/26/22 11:22 13:22 13:22 MCV MCH MCHC RDW Plt Count MPV Immature Gran % (Auto) Neut % (Auto) Lymph % (Auto) Victoria % (Auto) Eos % (Auto) Baso % (Auto) Lymph # (Auto) Victoria # (Auto) Eos # (Auto) Baso # (Auto) Abs Immat Gran (auto) Absolute Neuts (auto) Absolute Nucleated RBC Nucleated RBC % (auto) PT INR APTT VBG pH 7.32 VBG pCO2 44 VBG pO2 37 VBG HCO3 23 VBG O2 Saturation 51.0 VBG Base Excess -2.4 Anion Gap Estim Creat Clear Calc Estimated GFR Random Glucose Calcium Magnesium Total Bilirubin Direct Bilirubin AST ALT Alkaline Phosphatase Total Creatine Kinase B-Natriuretic Peptide Total Protein Albumin Procalcitonin Stl C. cayetanensis PCR Not Detected Stool Rotavirus A PCR Not Detected Stl Adenov F 40/41 PCR Not Detected Stool Astrovirus (PCR) Not Detected Stool Campylobacter PCR Not Detected Stool Cryptosporidium PCR Not Detected Stl Sh Tox Pr E STEC PCR Not Detected Stool E coli O157 PCR Not applicable Stl Enterotoxigenic E PCR Not Detected Stool EPEC (PCR) Not Detected Stool EAEC (PCR) Not Detected Stl E. histolytica PCR Not Detected Stool Giardia Lamblia PCR Not Detected Stl P. shigelloides PCR Not Detected Stool Salmonella PCR Not Detected Stool Sapovirus (PCR) Not Detected Stl Shigella/EIEC PCR Not Detected St Y.enterocolitica PCR Not Detected Stool Vibrio (PCR) Not Detected Stl Vibrio cholerae PCR Not Detected Stl Norovirus GI/GII PCR Not Detected C. difficile Tox B Gene NEGATIVE COVID-19 (JAS) COVID-19 Clin Com Imaging Radiologist's Impressions: Impressions Chest X-Ray 03/26/22 12:06 IMPRESSION: No acute cardiopulmonary process. Chest CTA 03/26/22 13:39 IMPRESSION: 1. Positive pulmonary emboli most pronounced in the right lower lobe as detailed above. 2. Multiple pulmonary nodules demonstrate interval decrease in size compared to the previous PET CT scan. VTE: positive This critical result was discussed with Dr. Tanisha Garcia at 2:40 PM on 03/26/2022 and it was ascertained that the content and urgency of the report was understood at the time of direct communication. Assessment and Plan (1) Chemotherapy-induced diarrhea: Status: Acute (2) Pulmonary embolism: Status: Acute (3) ANDREW (dyspnea on exertion): Status: Acute Plan 71 years old male with PMH of renal cancer, colon cancer post colon resection and ostomy who presents to the hospital complaining of increased output through the colostomy and dyspnea on exertion High ostomy output Likely related to chemotherapy, stool studies negative Elevated BUN/normal electrolytes Will place on scheduled Imodium, IV fluid, follow labs Pulmonary embolus Placed on Lovenox 1 milligram/kg likely related to underlying cancer History of orthostatic hypotension Asymptomatic, continue midodrine 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 Cisneros for continued chemotherapy stable CBC, no fever Moderate protein calorie malnutrition BMI 19.[address] on supplement DVT prophylaxis continue Lovenox In my clinical judgment patient needs 2 night inpatient hospitalization due to high colostomy output requiring IV fluid/new onset PE placed on Lovenox Quality Stroke Does the patient have a stroke diagnosis?: No VTE Prior VTE?: No VTE Risk Level:: Medical - moderate - high VTE Device Contraindication: Treatment Not Indicated VTE Drug Contraindication: N/A - Med Ordered
[2022-03-26] MEDS: Lactated Ringers 1,000 ML 100 ML IVCONT (17:32)
--- NOTE | 2022-03-26 18:49 | PC.NURSE ---
patient a&o, ivf running per order, pt previously medicated for liquid stool- colostomy intact, monitoring coordinator intact nsr, call villatoro within reach, will continue to monitor.
[2022-03-26 18:53] LABS: Appearance Urine Clear; Color Urine Yellow; Glucose Urine UA Negative (Negative); Leukocyte Esterase Urine Negative (Negative); Nitrite Urine Negative (Negative); Urine Blood Negative (Negative); Urine Ketones Negative (Negative); Urine Protein Negative (Neg-Trace)
[2022-03-26] MEDS: Midodrine HCl 5 MG TABLET PO (20:21)
[2022-03-26] MEDS: Metoprolol Tartrate 12.5 MG HALFTAB PO (20:21)
[2022-03-26 20:22] VITALS: BP 122/79; PULSE 94; RESP 20; TEMP 37.1; O2SAT 98
--- NOTE | 2022-03-26 20:23 | PC.NURSE ---
Patient VS are stable, Patient had his meds given as prescribed. a/o x4 and provided assistance with his colostomy bag, his LR is still running.
[2022-03-27] MEDS: Lactated Ringers 1,000 ML 100 ML IVCONT (03:55)
[2022-03-27] MEDS: Enoxaparin Sodium 80 MG/0.8 ML SYRINGE 70 MG SUBCUT ×2 (03:56→15:03)
[2022-03-27 07:09] VITALS: BP 123/63; PULSE 72; RESP 12; TEMP 37.1; O2SAT 97
[2022-03-27 08:08] VITALS: BP 133/77; PULSE 87; RESP 16
[2022-03-27] MEDS: 0.9 % Sodium Chloride Flush 3 ML SYRINGE IVFLUSH ×2 (08:20→16:29)
[2022-03-27] MEDS: Midodrine HCl 5 MG TABLET PO ×3 (08:20→20:17)
[2022-03-27] MEDS: Ferrous Sulfate 324 MG TABLET.DR PO (08:21)
[2022-03-27] MEDS: Loperamide HCl 2 MG CAPSULE PO (08:21)
[2022-03-27] MEDS: Metoprolol Tartrate 12.5 MG HALFTAB PO ×2 (08:21→20:16)
[2022-03-27] MEDS: Ascorbic Acid 500 MG TABLET PO (08:21)
--- NOTE | 2022-03-27 09:35 | MHC.CM.PN ---
PT REPORTS HE LIVES AT HOME WITH HIS AND IS INDEPENDENT WITH SELF CARE PT REPORTS HE HAS A CANE AND A WALKER, HE SAYS THE DAY AFTER CHEMO, HE NEEDS THE WALKER, THE NEXT DAY HE USES THE CANE, AND AT BASELINE HE REQUIRES NO DME PT HAS NO HOME SERVICES BUT REPORTS IF HE NEEDS THEM AT DC HE WOULD WANT [facility] AGAIN PCP: JOAN HOUSER HCP AND POA ON FILE VAX: PFIZER X 3 DCP HOME VS HOME WITH [facility] REFERRAL MADE FAMILY TO TRANSPORT
[2022-03-27] MEDS: Loperamide HCl 2 MG CAPSULE 4 MG PO ×3 (09:58→20:17)
[2022-03-27 15:58] VITALS: BP 132/76; PULSE 80; RESP 18; TEMP 36.7; O2SAT 99
--- NOTE | 2022-03-27 17:11 | P.PNIM_ITS ---
Subjective Subjective Date of Service: 03/27/22 Interval History: Patient feeling better this morning tolerating diet no nausea no vomiting continue to have liquidy stools in colostomy bag also complaining of urinary retention, going on for some time, denies fever chills no other acute issues overnight. 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 no JVD Cardiovascular : RRR, Respiratory :? clear to auscultate? no crackles, wheezes or rhonchi Gastrointestinal:? soft, Normal bowel sounds, Non tender, ostomy in place with creamy?liquidy stool Skin : Warm, Dry, brown discoloration of left thigh without associated redness or swelling question related to sun exposure Extremities no edema Neurological : Alert & oriented x3, No focal deficit , CN 2-12 within normal psych appropriate affect Objective Data Active Medications Acetaminophen (Acetaminophen 325 Mg Tablet) 650 mg PO Q6H PRN PRN Reason: Pain, Mild (Pain Scale 1-3) Ascorbic Acid (Ascorbic Acid 500 Mg Tablet) 500 mg PO DAILY [facility] Last Admin: 03/27/22 08:21 Dose: 500 mg Documented By: GREG Enoxaparin Sodium (Enoxaparin Sodium 80 Mg/0.8 Ml Syringe) 70 mg 1 mg/kg (70 mg) SUBCUT Q12H [facility] Last Admin: 03/27/22 15:03 Dose: 70 mg Documented By: GAGAN Ferrous Sulfate (Ferrous Sulfate 324 Mg Tablet.) 324 mg PO DAILY [facility] Last Admin: 03/27/22 08:21 Dose: 324 mg Documented By: GREG Loperamide HCl (Loperamide Hcl 2 Mg Capsule) 4 mg PO QID [facility] Last Admin: 03/27/22 16:29 Dose: 4 mg Documented By: TIANNA Melatonin (Melatonin 3 Mg Tablet) 6 mg PO BEDTIME PRN PRN Reason: Insomnia Metoprolol Tartrate (Metoprolol Tartrate 12.5 Mg Halftab) 12.5 mg PO BID [facility]; Protocol Last Admin: 03/27/22 08:21 Dose: 12.5 mg Documented By: GREG Midodrine (Midodrine Hcl 5 Mg Tablet) 5 mg PO TID [facility] Last Admin: 03/27/22 16:29 Dose: 5 mg Documented By: TIANNA Ondansetron HCl (Ondansetron Hcl 4 Mg/2 Ml Vial) 4 mg IVPUSH Q8H PRN PRN Reason: Nausea and Vomiting Pharmacy Consult (Consult Rx Perform Med Rec) 1 each MISCELLANE ONCE PRN PRN Reason: Consult order Sodium Chloride (0.9 % Sodium Chloride Flush 3 Ml Syringe) 3 ml IVFLUSH QSHIFT [facility] Last Admin: 03/27/22 16:29 Dose: 3 ml Documented By: TIANNA Labs CBC & Chem 7: 03/26/22 11:18 03/26/22 11:18 Labs: Laboratory Results - last 24 hr 03/26/22 18:35 Urine Color Yellow Urine Appearance Clear Urine pH 6.0 Ur Specific [place] 1.010 Urine Protein Negative Urine Glucose (UA) Negative Urine Ketones Negative Urine Blood Negative Urine Nitrite Negative Ur Leukocyte Esterase Negative Assessment and Plan (1) Chemotherapy-induced diarrhea: Status: Acute (2) Pulmonary embolism: Status: Acute (3) ANDREW (dyspnea on exertion): Status: Acute Plan 71 years old male with PMH of renal cancer, colon cancer post colon resection and ostomy who presents to the hospital complaining of increased output through the colostomy and dyspnea on exertion High ostomy output Persistent high ostomy output Likely related to chemotherapy, stool studies negative Elevated BUN/normal electrolytes Continue Imodium scheduled increase dose to 4 mg, DC IV fluids follow labs Pulmonary embolus Continue Lovenox 1 milligram/kg likely related to underlying cancer Urinary retention Will obtain bladder scan place [place] catheter and Flomax if noted to have high residual History of orthostatic hypotension Asymptomatic, continue midodrine 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 Cisneros for continued chemotherapy stable CBC, no fever Moderate protein calorie malnutrition BMI 19.[address] on supplement DVT prophylaxis continue Lovenox In my clinical judgment patient needs continued inpatient hospitalization due to high colostomy output requiring IV fluid/new onset PE on Lovenox Quality Stroke Does the patient have a stroke diagnosis?: No VTE Prior VTE?: No VTE Risk Level:: Medical - moderate - high VTE Device Contraindication: Treatment Not Indicated VTE Drug Contraindication: N/A - Med Ordered
[2022-03-27] MEDS: ondansetron HCL 4 MG/2 ML VIAL IVPUSH (20:23)
[2022-03-27 23:56] VITALS: BP 132/73; PULSE 88; RESP 15; TEMP 36.9; O2SAT 98
[2022-03-28] MEDS: 0.9 % Sodium Chloride Flush 3 ML SYRINGE IVFLUSH ×2 (00:22→09:05)
[2022-03-28] MEDS: Enoxaparin Sodium 80 MG/0.8 ML SYRINGE 70 MG SUBCUT ×2 (02:43→15:33)
[2022-03-28 03:43] VITALS: BP 139/62; PULSE 73; RESP 15; TEMP 36.9; O2SAT 99
[2022-03-28 07:28] VITALS: BP 134/67; PULSE 78; RESP 16; TEMP 36.9; O2SAT 99
[2022-03-28] MEDS: Ascorbic Acid 500 MG TABLET PO (09:07)
[2022-03-28] MEDS: Ferrous Sulfate 324 MG TABLET.DR PO (09:07)
[2022-03-28] MEDS: Loperamide HCl 2 MG CAPSULE 4 MG PO ×4 (09:07→20:33)
[2022-03-28] MEDS: Metoprolol Tartrate 12.5 MG HALFTAB PO ×2 (09:07→20:33)
[2022-03-28] MEDS: Midodrine HCl 5 MG TABLET PO ×3 (09:07→20:33)
[2022-03-28 10:05] LABS: Alanine Aminotransferase 22 U/L (0-40); Alkaline Phosphatase 100 U/L (39-117); Anion Gap 16 (12-20); Aspartate Amino Transferase 20 U/L (5-37); Bilirubin Direct 0.5 mg/dL (0.0-0.5); Bilirubin Total 0.7 mg/dL (0.0-1.0); Blood Urea Nitrogen 18 mg/dL (9-16); Carbon Dioxide 17 mmol/L (22-29); Chloride 109 mmol/L (96-108); Creatinine Clr Calc Pharmacy 76.7; Estimated Glomerular Filt Rate > 60; Glucose Random 127 mg/dL (60-115); Sodium 139 mmol/L (135-145)
[2022-03-28 11:03] LABS: Albumin Level 2.7 g/dL (3.5-5.0); Calcium 7.5 mg/dL (8.4-10.2); Total Protein 4.2 g/dL (6.5-8.0)
[2022-03-28] MEDS: Sodium Bicarbonate 650 MG TABLET PO ×3 (11:07→20:33)
[2022-03-28 11:23] VITALS: BP 156/75; PULSE 67; RESP 20; TEMP 36.7; O2SAT 98
--- NOTE | 2022-03-28 13:56 | P.PNIM_ITS ---
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 no JVD Cardiovascular : RRR, Respiratory :? clear to auscultate? no crackles, wheezes or rhonchi Gastrointestinal:? soft, Normal bowel sounds, Non tender, ostomy in place with creamy?liquidy stool Skin : Warm, Dry, brown discoloration of left thigh without associated redness or swelling improving likely related to sun exposure Extremities no edema Neurological : Alert & oriented x3, No focal deficit , CN 2-12 within normal psych appropriate affect Objective Data Active Medications Acetaminophen (Acetaminophen 325 Mg Tablet) 650 mg PO Q6H PRN PRN Reason: Pain, Mild (Pain Scale 1-3) Ascorbic Acid (Ascorbic Acid 500 Mg Tablet) 500 mg PO DAILY [facility] Last Admin: 03/28/22 09:07 Dose: 500 mg Documented By: JEAN CLAUDE Enoxaparin Sodium (Enoxaparin Sodium 80 Mg/0.8 Ml Syringe) 70 mg 1 mg/kg (70 mg) SUBCUT Q12H [facility] Last Admin: 03/28/22 02:43 Dose: 70 mg Documented By: NATHAN Ferrous Sulfate (Ferrous Sulfate 324 Mg Tablet.) 324 mg PO DAILY [facility] Last Admin: 03/28/22 09:07 Dose: 324 mg Documented By: JEAN CLAUDE Loperamide HCl (Loperamide Hcl 2 Mg Capsule) 4 mg PO QID [facility] Last Admin: 03/28/22 09:07 Dose: 4 mg Documented By: JEAN CLAUDE Melatonin (Melatonin 3 Mg Tablet) 6 mg PO BEDTIME PRN PRN Reason: Insomnia Metoprolol Tartrate (Metoprolol Tartrate 12.5 Mg Halftab) 12.5 mg PO BID [facility]; Protocol Last Admin: 03/28/22 09:07 Dose: 12.5 mg Documented By: JEAN CLAUDE Midodrine (Midodrine Hcl 5 Mg Tablet) 5 mg PO TID [facility] Last Admin: 03/28/22 09:07 Dose: 5 mg Documented By: JEAN CLAUDE Ondansetron HCl (Ondansetron Hcl 4 Mg/2 Ml Vial) 4 mg IVPUSH Q8H PRN PRN Reason: Nausea and Vomiting Last Admin: 03/27/22 20:23 Dose: 4 mg Documented By: TIANNA Pharmacy Consult (Consult Rx Perform Med Rec) 1 each MISCELLANE ONCE PRN PRN Reason: Consult order Sodium Bicarbonate (Sodium Bicarbonate 650 Mg Tablet) 650 mg PO TID [facility] Last Admin: 03/28/22 11:07 Dose: 650 mg Documented By: JEAN CLAUDE Sodium Chloride (0.9 % Sodium Chloride Flush 3 Ml Syringe) 3 ml IVFLUSH QSHIFT [facility] Last Admin: 03/28/22 09:05 Dose: 3 ml Documented By: JEAN CLAUDE Labs CBC & Chem 7: 03/26/22 11:18 03/28/22 08:40 Labs: Laboratory Results - last 24 hr 03/28/22 08:40 Anion Gap 16 Estim Creat Clear Calc 76.7 Estimated GFR > 60 Random Glucose 127 H Calcium 7.5 L D Total Bilirubin 0.7 Direct Bilirubin 0.5 AST 20 ALT 22 Alkaline Phosphatase 100 Total Protein 4.2 L D Albumin 2.7 L D Assessment and Plan (1) Chemotherapy-induced diarrhea: Status: Acute (2) Pulmonary embolism: Status: Acute (3) ANDREW (dyspnea on exertion): Status: Acute Plan 71 years old male with PMH of renal cancer, colon cancer post colon resection and ostomy who presents to the hospital complaining of increased output through the colostomy and dyspnea on exertion High ostomy output Persistent high ostomy output Likely related to chemotherapy, stool studies negative BUN improving Continue Imodium 4 mg q.i.d. scheduled, add Questran Hypokalemia due to GI loss will replace and follow Metabolic acidosis due to diarrhea will place on soda bicarb follow BMP at a.m. 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 Cisneros for continued chemotherapy stable CBC, no fever Moderate protein calorie malnutrition BMI 19.6 on supplement DVT prophylaxis continue Lovenox In my clinical judgment patient needs continued inpatient hospitalization due to high colostomy output requiring IV fluid/electrolyte abnormality/ new onset PE on Lovenox Quality Stroke Does the patient have a stroke diagnosis?: No VTE Prior VTE?: No VTE Risk Level:: Medical - moderate - high VTE Device Contraindication: Treatment Not Indicated VTE Drug Contraindication: N/A - Med Ordered
[2022-03-28 14:00] VITALS: BP 136/64; PULSE 76; RESP 16; TEMP 36.7; O2SAT 98
[2022-03-28] MEDS: Cholestyramine (With Sugar) 4 GM POWD.PACK 2 GM PO (14:45)
[2022-03-28] MEDS: Potassium Chloride ER 20 MEQ TAB.ER.PRT 40 MEQ PO (14:45)
[2022-03-28] MEDS: KCl 20 mEq in 5 % Dex/Lact Rin 20 MEQ/1,000 ML IV.SOLN 100 MEQ IVCONT (14:48)
[2022-03-28 15:28] VITALS: BP 147/71; PULSE 71; RESP 18; TEMP 36.9; O2SAT 99
[2022-03-28 20:30] VITALS: BP 130/71; PULSE 71; RESP 18
[2022-03-28] MEDS: ondansetron HCL 4 MG/2 ML VIAL IVPUSH (20:37)
[2022-03-29] VITALS: BP 170/77; PULSE 71; RESP 14; TEMP 36.9; O2SAT 100
[2022-03-29] MEDS: Enoxaparin Sodium 80 MG/0.8 ML SYRINGE 70 MG SUBCUT ×2 (03:19→14:39)
[2022-03-29 07:29] LABS: Anion Gap 14 (12-20); Blood Urea Nitrogen 14 mg/dL (9-16); Calcium 7.6 mg/dL (8.4-10.2); Carbon Dioxide 19 mmol/L (22-29); Chloride 108 mmol/L (96-108); Creatinine Clr Calc Pharmacy 82.6; Estimated Glomerular Filt Rate > 60; Glucose Random 122 mg/dL (60-115); Magnesium 1.6 mg/dL (1.6-2.6); Potassium 3.2 mmol/L (3.3-5.1); Sodium 138 mmol/L (135-145)
[2022-03-29 08:00] VITALS: BP 133/62; PULSE 81; RESP 16; TEMP 37; O2SAT 100
[2022-03-29] MEDS: Potassium Chloride Packet 20 MEQ PACKET 40 MEQ PO ×2 (09:07→20:11)
[2022-03-29] MEDS: 0.9 % Sodium Chloride Flush 3 ML SYRINGE IVFLUSH ×2 (09:07→17:33)
[2022-03-29] MEDS: Metoprolol Tartrate 12.5 MG HALFTAB PO ×2 (09:08→20:11)
[2022-03-29] MEDS: Midodrine HCl 5 MG TABLET PO ×3 (09:08→20:11)
[2022-03-29] MEDS: Sodium Bicarbonate 650 MG TABLET PO ×3 (09:08→20:11)
[2022-03-29] MEDS: Loperamide HCl 2 MG CAPSULE 4 MG PO ×4 (09:08→20:11)
[2022-03-29] MEDS: Ferrous Sulfate 324 MG TABLET.DR PO (09:08)
[2022-03-29] MEDS: Ascorbic Acid 500 MG TABLET PO (09:08)
[2022-03-29 10:53] VITALS: BP 139/69; PULSE 66; RESP 16; TEMP 37; O2SAT 98
--- NOTE | 2022-03-29 13:46 | PM.DS ---
DS: Providers Provider Date of Service: 03/29/22 Date of admission: 03/26/22 16:51 Date of discharge: 03/29/22 Primary care physician: Jose James [facility] DS: Diagnosis Discharge Diagnosis (1) Chemotherapy-induced diarrhea: Status: Acute (2) Pulmonary embolism: Status: Acute (3) ANDREW (dyspnea on exertion): Status: Acute DS: Summary Hospital Course Hospital Course: 71-year-old gentleman with past medical history is significant for renal and colon cancer status post colon resection and ostomy currently receiving IV and by mouth chemotherapy by Dr. Cisneros presented to [facility] due to high colostomy output times 4-5 days, his last chemo dose was 2 days ago, he denies associated nausea vomiting he does get abdominal g prior to diarrhea, he denies fever chills denies recent use of antibiotics patient has been using Imodium 3 times a day without significant improvement patient also noted to have dyspnea on exertion for last several days prior to that he was walking a mile, fishing, and mowing his lawn without difficulty, he denied associated cough or sputum production, workup in the emergency room included a CTA chest that showed PE, stool studies are negative , electrolytes stable BUN elevated at 24 under blood sugar 122, patient received 1 dose of Lovenox in the emergency room as well as Imodium but since patient noted to have persistent profuse watery stool in colostomy bag since arrival to ER for bags have been changed therefore patient is being admitted for continued monitoring and treatment for fluid management. Hopsital Course admitted to Telemetry and started on Lovenox 1 milligram/kilogram b.i.d.. Over the course of the next 48 hours with IV fluids and antidiarrheals symptoms improved to the point where we patient is tolerating diet and wishes to be discharged home. He will be discharged home to continue Lovenox and follow with Oncology as scheduled Time Spent with Patient Time attestation: Total time spent providing and/or coordinating discharge services: Discharge coordination time: Greater than 30 minutes Quality: Safe Use of Opioids Does Pt have an Active Cancer Diagnosis on the Problem List?: No Quality: Stroke Does the patient have a stroke diagnosis?: No Physical Exam Vital Signs: Vital Signs: Last Vital Signs Temp 98.6 F 03/29/22 10:53 Pulse 66 03/29/22 10:53 Resp 16 03/29/22 10:53 BP 139/69 03/29/22 10:53 Pulse Ox 98 03/29/22 10:53 O2 Del Method 03/29/22 10:53 BMI result Body Mass Index 19.5 Const: Other: no acute issue overnight Resp: Other: clear to auscultation bilaterally no rales rhonchi wheezes Cardio: Other: no S4; positive S1-S2; no S3 murmurs rubs or Extrem: Other: no edema bilaterally DS: Data Data Completed and Pending Completed studies during hospitalization [Text1]: Procedures Bypass Sigmoid Colon to Cutaneous, Open Approach (09/02/21) Drainage of Right Kidney, Percutaneous Approach, Diagnostic (09/02/21) Excision of Bladder, Open Approach (09/02/21) Excision of Rectum, Open Approach (09/02/21) Excision of Right Kidney, Percutaneous Approach, Diagnostic (09/02/21) Excision of Sigmoid Colon, Open Approach (09/02/21) Excision of Sigmoid Colon, Via Natural or Artificial Opening Endoscopic, Diagnostic (09/02/21) Release Peritoneum, Open Approach (12/30/21) Removal of Drainage Device from Peritoneal Cavity, Open Approach (12/30/21) Repair Bladder, Open Approach (09/02/21) Labs on day of discharge: Laboratory Results - last 24 hr 03/29/22 06:40 Sodium 138 Potassium 3.2 L Chloride 108 Carbon Dioxide 19 L Anion Gap 14 BUN 14 Creatinine 0.78 Estim Creat Clear Calc 82.6 Estimated GFR > 60 Random Glucose 122 H Calcium 7.6 L Magnesium 1.6 Discharge Plan Discharge Patient Disposition: Home, Self-Care Discharge Diagnosis: Acute Pulmonary embolism Chemotherapy-induced diarrhea Referrals: Jose James, [employer] RECRUITER-BC [Primary Care Provider] - 1 Week Discharge Medications: New enoxaparin 80 mg/0.8 mL Syringe 70 mg subcut Q12H Qty: 28 2RF Continued ondansetron 8 mg Tablet,Disintegrating 8 mg PO Q8H PRN (Reason: Nausea) Qty: 30 3RF capecitabine 500 mg tablet 1,500 mg PO BID Rx Instructions: for 14 days per 21-day cycle; must administer with water 30 minutes after a meal midodrine 5 mg Tablet 5 mg PO TID Qty: 90 0RF metoprolol tartrate 25 mg tablet 12.5 mg PO BID Qty: 30 0RF ascorbate calcium (vitamin C) 500 mg tablet 500 mg PO DAILY ferrous sulfate 325 mg (65 mg iron) tablet 325 mg PO DAILY dexamethasone 4 mg tablet 4 mg PO BID Rx Instructions: Take BID on days 2 and 3 after chemo Discharge Orders: Discharge Order (Routine); Ordered 03/29/22 Ordered By: Royer Lockwood Diet: [place] diet Activity on Discharge: As tolerated Stand Alone Forms: Patient Portal Discharge page Care Plan Goals: High output ostomy due to chemotherapy take bland diet Health Concerns: Continue all home medication as before, chemotherapy medication as per Oncology Plan of Treatment: Outpatient follow-up with primary care physician and Oncology for continued chemotherapy Assessment: As per discharge summary
--- NOTE | 2022-03-29 14:34 | MHC.CM.PN ---
pt dcd home hvns notified
[2022-03-29 15:22] VITALS: BP 142/67; PULSE 76; RESP 17; TEMP 36.8; O2SAT 98
[2022-03-29] MEDS: ondansetron HCL 4 MG/2 ML VIAL IVPUSH (17:32)
[2022-03-29] MEDS: Pantoprazole Sodium 40 MG/10 ML VIAL IVPUSH (20:11)
[2022-03-30] VITALS: BP 123/63; PULSE 63; RESP 20; TEMP 36.8; O2SAT 98
[2022-03-30 04:43] VITALS: BP 120/60; PULSE 61; RESP 20; TEMP 37.1; O2SAT 95
[2022-03-30] MEDS: Enoxaparin Sodium 80 MG/0.8 ML SYRINGE 70 MG SUBCUT ×2 (05:40→16:06)
[2022-03-30] MEDS: Pantoprazole Sodium 40 MG/10 ML VIAL IVPUSH ×2 (05:40→16:06)
[2022-03-30 06:58] LABS: MANUAL DIFF FLAG NO
[2022-03-30 07:07] LABS: Basophils Percent Auto 0.6 % (0-2); Eosinophils Absolute Auto 0.1 X10*3/uL (0.0-0.4); Eosinophils Percent Auto 1.5 % (0-4); Hemoglobin 11.7 g/dl (14.0-18.0); Imm Gran Abs Auto 0.02 X10*3/uL (0.00-0.03); Imm Gran Pct Auto 0.4 % (0.0-0.4); Lymphocytes Absolute Auto 1.8 X10*3/uL (1.2-4.9); Lymphocytes Percent Auto 37.7 % (20-40); Mean Corpuscular HGB Conc 33.4 g/dl (31.0-36.0); Mean Corpuscular Hemoglobin 33.3 pg (27.0-33.0); Mean Corpuscular Volume 99.7 fL (80.0-98.0); Mean Platelet Volume 9.6 fL (9.4-12.4); Monocytes Absolute Auto 0.9 X10*3/uL (0.1-1.2); Monocytes Percent Auto 18.6 % (2-11); Neutrophils Absolute Auto 1.9 x10*3/uL (2.0-8.3); Neutrophils Percent Auto 41.2 % (45-73); Platelet Count 276 X10*3/uL (160-400); Red Blood Count 3.51 X10*6/uL (4.60-5.80); Red Cell Distribution Width 18.6 % (11.0-16.0); White Blood Count 4.7 X10*3/uL (4.8-10.8)
[2022-03-30 07:21] LABS: Alanine Aminotransferase 22 U/L (0-40); Albumin Level 2.6 g/dL (3.5-5.0); Alkaline Phosphatase 114 U/L (39-117); Anion Gap 12 (12-20); Aspartate Amino Transferase 24 U/L (5-37); Bilirubin Total 0.7 mg/dL (0.0-1.0); Blood Urea Nitrogen 15 mg/dL (9-16); Calcium 7.6 mg/dL (8.4-10.2); Carbon Dioxide 21 mmol/L (22-29); Chloride 108 mmol/L (96-108); Creatinine Clr Calc Pharmacy 80.6; Estimated Glomerular Filt Rate > 60; Glucose Fasting 87 mg/dL (60-99); Potassium 3.2 mmol/L (3.3-5.1); Sodium 138 mmol/L (135-145); Total Protein 3.9 g/dL (6.5-8.0)
[2022-03-30 07:30] VITALS: BP 119/61; PULSE 76; RESP 20; TEMP 36.7; O2SAT 99
[2022-03-30] MEDS: 0.9 % Sodium Chloride Flush 3 ML SYRINGE IVFLUSH ×3 (09:53→22:38)
[2022-03-30] MEDS: Ascorbic Acid 500 MG TABLET PO (09:54)
[2022-03-30] MEDS: Midodrine HCl 5 MG TABLET PO ×3 (09:54→22:38)
[2022-03-30] MEDS: Metoprolol Tartrate 12.5 MG HALFTAB PO ×2 (09:54→22:38)
[2022-03-30] MEDS: Loperamide HCl 2 MG CAPSULE 4 MG PO ×4 (09:54→22:38)
[2022-03-30] MEDS: Ferrous Sulfate 324 MG TABLET.DR PO (09:54)
[2022-03-30] MEDS: Sodium Bicarbonate 650 MG TABLET PO ×3 (09:54→22:38)
--- NOTE | 2022-03-30 12:27 | HO.PM.IMPN ---
Subjective Subjective Date of Service: 03/30/22 Interval History: minimal improvement overnight. Tolerated breakfast this a.m.. Output slowing per patient Review of Systems denies chest pain Denies shortness of breath Denies nausea vomiting diarrhea Denies fever chills Physical Exam Vital Signs: Vital Signs: Last Vital Signs Temp 98.1 F 03/30/22 07:30 Pulse 76 03/30/22 07:30 Resp 20 03/30/22 07:30 BP 119/61 03/30/22 07:30 Pulse Ox 99 03/30/22 07:30 O2 Del Method 03/30/22 07:30 BMI result Body Mass Index 19.5 Const: Other: no acute issues Resp: Other: clear to auscultation bilaterally no rales rhonchi or Cardio: Other: no S4; positive S1-S2; no S3 murmurs of ga GI: Other: soft nontender nondistended with normoactive bowel sounds. Ostomy draining liquid black stool (iron Extrem: Other: no edema bilaterally Objective Data Active Medications Acetaminophen (Acetaminophen 325 Mg Tablet) 650 mg PO Q6H PRN PRN Reason: Pain, Mild (Pain Scale 1-3) Ascorbic Acid (Ascorbic Acid 500 Mg Tablet) 500 mg PO DAILY [facility] Last Admin: 03/30/22 09:54 Dose: 500 mg Documented By: DEBORAH Enoxaparin Sodium (Enoxaparin Sodium 80 Mg/0.8 Ml Syringe) 70 mg 1 mg/kg (70 mg) SUBCUT Q12H [facility] Last Admin: 03/30/22 05:40 Dose: 70 mg Documented By: SHIRAZJ Ferrous Sulfate (Ferrous Sulfate 324 Mg Tablet.) 324 mg PO DAILY [facility] Last Admin: 03/30/22 09:54 Dose: 324 mg Documented By: DEBORAH Loperamide HCl (Loperamide Hcl 2 Mg Capsule) 4 mg PO QID [facility] Last Admin: 03/30/22 09:54 Dose: 4 mg Documented By: DEBORAH Melatonin (Melatonin 3 Mg Tablet) 6 mg PO BEDTIME PRN PRN Reason: Insomnia Metoprolol Tartrate (Metoprolol Tartrate 12.5 Mg Halftab) 12.5 mg PO BID [facility]; Protocol Last Admin: 03/30/22 09:54 Dose: 12.5 mg Documented By: DEBORAH Midodrine (Midodrine Hcl 5 Mg Tablet) 5 mg PO TID [facility] Last Admin: 03/30/22 09:54 Dose: 5 mg Documented By: DEBORAH Ondansetron HCl (Ondansetron Hcl 4 Mg/2 Ml Vial) 4 mg IVPUSH Q8H PRN PRN Reason: Nausea and Vomiting Last Admin: 03/29/22 17:32 Dose: 4 mg Documented By: JEAN CLAUDE Pantoprazole Sodium (Pantoprazole Sodium 40 Mg/10 Ml Vial) 40 mg IVPUSH BID@0630,1630 [facility] Last Admin: 03/30/22 05:40 Dose: 40 mg Documented By: IVANA Pharmacy Consult (Consult Rx Perform Med Rec) 1 each MISCELLANE ONCE PRN PRN Reason: Consult order Potassium Chloride (Potassium Chloride Er 20 Meq Tab.Er.Prt) 20 meq PO BID [facility] Sodium Bicarbonate (Sodium Bicarbonate 650 Mg Tablet) 650 mg PO TID [facility] Last Admin: 03/30/22 09:54 Dose: 650 mg Documented By: DEBORAH Sodium Chloride (0.9 % Sodium Chloride Flush 3 Ml Syringe) 3 ml IVFLUSH QSHIFT [facility] Last Admin: 03/30/22 09:53 Dose: 3 ml Documented By: DEBORAH Labs CBC & Chem 7: 03/30/22 06:40 03/30/22 06:40 Labs: Laboratory Results - last 24 hr 03/30/22 03/30/22 06:40 06:40 MCV 99.7 H MCH 33.3 H MCHC 33.4 RDW 18.6 H Plt Count 276 MPV 9.6 Immature Gran % (Auto) 0.4 Neut % (Auto) 41.2 L Lymph % (Auto) 37.7 [place] % (Auto) 18.6 H Eos % (Auto) 1.5 Baso % (Auto) 0.6 Lymph # (Auto) 1.8 [place] # (Auto) 0.9 Eos # (Auto) 0.1 Baso # (Auto) 0.0 Abs Immat Gran (auto) 0.02 Absolute Neuts (auto) 1.9 L Absolute Nucleated RBC 0.000 Nucleated RBC % (auto) 0.0 Anion Gap 12 Estim Creat Clear Calc 80.6 Estimated GFR > 60 Fasting Glucose 87 Calcium 7.6 L Total Bilirubin 0.7 AST 24 ALT 22 Alkaline Phosphatase 114 Total Protein 3.9 L Albumin 2.6 L Assessment and Plan (1) Chemotherapy-induced diarrhea: Status: Acute (2) Pulmonary embolism: Status: Acute (3) Orthostatic hypotension: Status: Acute Plan 71 years old male with PMH of renal cancer, colon cancer post colon resection and ostomy who presents to the hospital complaining of increased output through the colostomy;slowly improving 1.High ostomy output -improving -Imodium 4 mg q.i.d./Questran 2.Pulmonary embolus -continue Lovenox 1 milligram/kg likely related to underlying cancer - discharged on same 3.Orthostatic hypotension -Asymptomatic - continue midodrine DVT prophylaxis continue Lovenox In my clinical judgment patient needs continued inpatient hospitalization due to high colostomy output requiring IV fluid/electrolyte abnormality/ new onset PE on Lovenox Quality Stroke Does the patient have a stroke diagnosis?: No VTE Prior VTE?: No VTE Risk Level:: Medical - moderate - high VTE Device Contraindication: Treatment Not Indicated VTE Drug Contraindication: N/A - Med Ordered
[2022-03-30 13:08] LABS: Magnesium 1.8 mg/dL (1.6-2.6)
[2022-03-30] MEDS: Potassium Chloride ER 20 MEQ TAB.ER.PRT PO ×2 (13:09→22:38)
[2022-03-30 15:50] VITALS: BP 136/71; PULSE 67; RESP 18; TEMP 36.1; O2SAT 95
[2022-03-30 23:11] VITALS: BP 127/67; PULSE 67; RESP 16; TEMP 37; O2SAT 97
[2022-03-31] MEDS: Enoxaparin Sodium 80 MG/0.8 ML SYRINGE 70 MG SUBCUT ×2 (03:55→14:08)
[2022-03-31 06:28] LABS: Basophils Percent Auto 0.5 % (0-2); Eosinophils Absolute Auto 0.1 X10*3/uL (0.0-0.4); Eosinophils Percent Auto 1.6 % (0-4); Hematocrit 32.2 % (42.0-52.0); Hemoglobin 10.7 g/dl (14.0-18.0); Imm Gran Abs Auto 0.02 X10*3/uL (0.00-0.03); Imm Gran Pct Auto 0.5 % (0.0-0.4); Lymphocytes Absolute Auto 1.6 X10*3/uL (1.2-4.9); Lymphocytes Percent Auto 36.2 % (20-40); MANUAL DIFF FLAG SCAN; Mean Corpuscular HGB Conc 33.2 g/dl (31.0-36.0); Mean Corpuscular Hemoglobin 32.9 pg (27.0-33.0); Mean Corpuscular Volume 99.1 fL (80.0-98.0); Mean Platelet Volume 10.5 fL (9.4-12.4); Monocytes Absolute Auto 0.9 X10*3/uL (0.1-1.2); Monocytes Percent Auto 20.9 % (2-11); Neutrophils Absolute Auto 1.8 x10*3/uL (2.0-8.3); Neutrophils Percent Auto 40.3 % (45-73); Platelet Count 255 X10*3/uL (160-400); Red Blood Count 3.25 X10*6/uL (4.60-5.80); Red Cell Distribution Width 18.6 % (11.0-16.0); SCAN SMEAR FLAG 1; White Blood Count 4.4 X10*3/uL (4.8-10.8)
[2022-03-31] MEDS: Pantoprazole Sodium 40 MG/10 ML VIAL IVPUSH (06:40)
[2022-03-31 06:42] LABS: Alanine Aminotransferase 28 U/L (0-40); Albumin Level 2.2 g/dL (3.5-5.0); Alkaline Phosphatase 137 U/L (39-117); Anion Gap 13 (12-20); Aspartate Amino Transferase 43 U/L (5-37); Bilirubin Total 0.4 mg/dL (0.0-1.0); Blood Urea Nitrogen 12 mg/dL (9-16); Calcium 7.3 mg/dL (8.4-10.2); Carbon Dioxide 19 mmol/L (22-29); Chloride 108 mmol/L (96-108); Creatinine Clr Calc Pharmacy 102.3; Estimated Glomerular Filt Rate > 60; Glucose Fasting 115 mg/dL (60-99); Potassium 3.7 mmol/L (3.3-5.1); Sodium 136 mmol/L (135-145); Total Protein 3.8 g/dL (6.5-8.0)
[2022-03-31 07:14] LABS: SLIDE REVIEW VERIFIED
[2022-03-31 08:00] VITALS: BP 120/56; PULSE 67; RESP 20; TEMP 36.8; O2SAT 98
[2022-03-31] MEDS: Metoprolol Tartrate 12.5 MG HALFTAB PO (08:03)
[2022-03-31] MEDS: Sodium Bicarbonate 650 MG TABLET PO ×2 (08:03→14:08)
[2022-03-31] MEDS: Midodrine HCl 5 MG TABLET PO ×2 (08:06→14:08)
[2022-03-31] MEDS: Ascorbic Acid 500 MG TABLET PO (08:06)
[2022-03-31] MEDS: 0.9 % Sodium Chloride Flush 3 ML SYRINGE IVFLUSH (08:06)
[2022-03-31] MEDS: Potassium Chloride ER 20 MEQ TAB.ER.PRT PO (08:06)
[2022-03-31] MEDS: Ferrous Sulfate 324 MG TABLET.DR PO (08:06)
[2022-03-31] MEDS: Loperamide HCl 2 MG CAPSULE 4 MG PO ×2 (08:06→14:08)
[2022-03-31 13:08] VITALS: BMI 19.5
--- NOTE | 2022-03-31 13:13 | MHC.CLN ---
PT IS MODERATELY MALNOURISHED PT WITH HX SIGNIFICANT WT LOSS, BMI 19.5 AND MILDLY DEPLETED SUBCUTANEOUS FAT AND MUSCLE MASS WITH POOR PO INTAKE DIET RX: BLAND, LACTOSE FREE, LOW FIBER, NO CAFFEINE-APPROPRIATE ENSURE CLEAR TID IN PLACE PROVIDES 720KCALS, 24G PROTEIN CONTINUE TO MONITOR PO INTAKE CLOSELY SEE ALSO FULL CLINICAL NUTRITION ASSESSMENT
--- NOTE | 2022-03-31 15:12 | P.DS_ITS ---
DS: Providers Provider Date of Service: 03/31/22 Date of admission: 03/26/22 16:51 Date of discharge: 03/31/22 Primary care physician: Jose James [facility] DS: Diagnosis Discharge Diagnosis (1) Chemotherapy-induced diarrhea: Status: Acute (2) Pulmonary embolism: Status: Acute (3) Orthostatic hypotension: Status: Acute DS: Summary Hospital Course Hospital Course: 71-year-old gentleman with past medical history is significant for renal and colon cancer status post colon resection and ostomy currently receiving IV and by mouth chemotherapy by Dr. Cisneros presented to [facility] due to high colostomy output times 4-5 days, his last chemo dose was 2 days ago, he denies associated nausea vomiting he does get abdominal g prior to diarrhea, he denies fever chills denies recent use of antibiotics patient has been using Imodium 3 times a day without significant improvement patient also noted to have dyspnea on exertion for last several days prior to that he was walking a mile, fishing, and mowing his lawn without difficulty, he denied associated cough or sputum production, workup in the emergency room included a CTA chest that showed PE, stool studies are negative , electrolytes stable BUN elevated at 24 under blood sugar 122, patient received 1 dose of Lovenox in the emergency room as well as Imodium but since patient noted to have persistent profuse watery stool in colostomy bag since arrival to ER for bags have been changed therefore patient is being admitted for continued monitoring and treatment for fluid management. Hopsital Course admitted to Telemetry and started on Lovenox 1 milligram/kilogram b.i.d.. Over the course of the next 48 hours with IV fluids and antidiarrheals symptoms improved to the point where we patient is tolerating diet and wishes to be discharged home. He will be discharged home to continue with Eliquis and follow with Oncology as scheduled Time Spent with Patient Time attestation: Total time spent providing and/or coordinating discharge services: Discharge coordination time: Greater than 30 minutes Quality: Safe Use of Opioids Does Pt have an Active Cancer Diagnosis on the Problem List?: No Quality: Stroke Does the patient have a stroke diagnosis?: No Physical Exam Vital Signs: Vital Signs: Last Vital Signs Temp 98.2 F 03/31/22 08:00 Pulse 67 03/31/22 08:00 Resp 20 03/31/22 08:00 BP 120/56 L 03/31/22 08:00 Pulse Ox 98 03/31/22 08:00 O2 Del Method 03/31/22 08:00 BMI result Body Mass Index 19.5 DS: Data Data Completed and Pending Completed studies during hospitalization [Text1]: Procedures Bypass Sigmoid Colon to Cutaneous, Open Approach (09/02/21) Drainage of Right Kidney, Percutaneous Approach, Diagnostic (09/02/21) Excision of Bladder, Open Approach (09/02/21) Excision of Rectum, Open Approach (09/02/21) Excision of Right Kidney, Percutaneous Approach, Diagnostic (09/02/21) Excision of Sigmoid Colon, Open Approach (09/02/21) Excision of Sigmoid Colon, Via Natural or Artificial Opening Endoscopic, Diagnostic (09/02/21) Release Peritoneum, Open Approach (12/30/21) Removal of Drainage Device from Peritoneal Cavity, Open Approach (12/30/21) Repair Bladder, Open Approach (09/02/21) Labs on day of discharge: Laboratory Results - last 24 hr 03/31/22 03/31/22 05:37 05:37 WBC 4.4 L RBC 3.25 L Hgb 10.7 L Hct 32.2 L MCV 99.1 H MCH 32.9 MCHC 33.2 RDW 18.6 H Plt Count 255 MPV 10.5 Immature Gran % (Auto) 0.5 H Neut % (Auto) 40.3 L Lymph % (Auto) 36.2 [place] % (Auto) 20.9 H Eos % (Auto) 1.6 Baso % (Auto) 0.5 Lymph # (Auto) 1.6 [place] # (Auto) 0.9 Eos # (Auto) 0.1 Baso # (Auto) 0.0 Abs Immat Gran (auto) 0.02 Absolute Neuts (auto) 1.8 L Absolute Nucleated RBC 0.000 Nucleated RBC % (auto) 0.0 Smear Tech's Comments VERIFIED Sodium 136 Potassium 3.7 Chloride 108 Carbon Dioxide 19 L Anion Gap 13 BUN 12 Creatinine 0.63 Estim Creat Clear Calc 102.3 Estimated GFR > 60 Fasting Glucose 115 H Calcium 7.3 L Total Bilirubin 0.4 AST 43 H D ALT 28 Alkaline Phosphatase 137 H D Total Protein 3.8 L Albumin 2.2 L Discharge Plan Discharge Patient Disposition: Home Health Service Discharge Diagnosis: Acute Pulmonary embolism Chemotherapy-induced diarrhea Referrals: Jose James, NURSERY NURSE-BC [Primary Care Provider] - 1 Week Discharge Medications: New sodium bicarbonate 650 mg Tablet 650 mg PO TID Qty: 90 0RF Eliquis 5 mg tablet 10 mg PO BID Qty: 74 0RF Continued ondansetron 8 mg Tablet,Disintegrating 8 mg PO Q8H PRN (Reason: Nausea) Qty: 30 3RF capecitabine 500 mg tablet 1,500 mg PO BID Rx Instructions: for 14 days per 21-day cycle; must administer with water 30 minutes after a meal midodrine 5 mg Tablet 5 mg PO TID Qty: 90 0RF metoprolol tartrate 25 mg tablet 12.5 mg PO BID Qty: 30 0RF ascorbate calcium (vitamin C) 500 mg tablet 500 mg PO DAILY ferrous sulfate 325 mg (65 mg iron) tablet 325 mg PO DAILY dexamethasone 4 mg tablet 4 mg PO BID Rx Instructions: Take BID on days 2 and 3 after chemo Discharge Orders: Discharge Order (Routine); Ordered 03/31/22 Ordered By: Royer Lockwood Diet: [place] diet Activity on Discharge: As tolerated Stand Alone Forms: Patient Portal Discharge page Care Plan Goals: High output ostomy due to chemotherapy take bland diet Health Concerns: Continue all home medication as before, chemotherapy medication as per Oncology Plan of Treatment: Outpatient follow-up with primary care physician and Oncology for continued chemotherapy Assessment: As per discharge summary
--- NOTE | 2022-03-31 15:23 | MHC.CM.PN ---
Patient has been medically cleared for dc to home today with services. A referral was made to [facility], who has been notified of today's dc. Last IMM addressed on 03/29/22.
--- NOTE | 2022-03-31 15:31 | MHC.CM.PN ---
Per dc summary, Patient is going home on new Eliquis; CM has provided Patient with a 30 day free trial voucher for Eliquis.
== END 2022-03-31 16:06 | disposition home health service (06) | DRG 393 ==
LOC: HO.ED 14:47 → HO.EDOVER 17:13 → HO.IMC 03-27 12:54
PROVIDERS: Physician Assistant; Admitting Provider Hospitalist; Emergency Provider Student in an Organized Health Care Education/Training Program; PCP Nurse Practitioner Family; Visit Provider Hospitalist
DX: K52.1 Toxic gastroenteritis and colitis (principal); I26.99 Other pulmonary embolism without acute cor pulmonale; C19 Malignant neoplasm of rectosigmoid junction; E87.2 Acidosis; E44.0 Moderate protein-calorie malnutrition; Z68.1 Body mass index [BMI] 19.9 or less, adult; C78.00 Secondary malignant neoplasm of unspecified lung; E87.6 Hypokalemia; R33.9 Retention of urine, unspecified; I95.1 Orthostatic hypotension; T45.1X5A Adverse effect of antineoplastic and immunosuppressive drugs, initial encounter; Z20.822 Contact with and (suspected) exposure to COVID-19; Z86.16 Personal history of COVID-19; Z93.3 Colostomy status; Z87.891 Personal history of nicotine dependence; Z79.899 Other long term (current) drug therapy
CPT/HCPCS: 36415; 71046; 71275; 80048; 80053; 80076; 81003; 82550; 82803; 83735; 83880; 84145; 84484; 85025; 85610; 85730; 87493; 87507; 87635; 93005; 99285; J1650; J2405; Q9967

== ENCOUNTER 2022-04-07 10:01 | Outpatient (REF) | payer OTHER, SELFPAY ==
--- NOTE | ~2022-04-07 | PE_ITS ---
EXAMINATION: NM FLUORINE-18 FDG PET/CT SCAN CLINICAL INDICATION: Subsequent treatment management. History of metastatic colonic adenocarcinoma. PROCEDURE: 60 minutes following the intravenous administration of 13.4 mCi of fluorine 18 FDG, images from the base of the skull to the mid thighs were obtained using a combined PET/CT scanner with CT scan based attenuation correction. No intravenous contrast was administered. Transverse, coronal, sagittal, and volume reconstruction projections were obtained. The patient's blood glucose as determined by a finger stick was 315 mg/dL immediately prior to injection. This examination was performed using dose optimization techniques as appropriate, variously including the following: *Automated exposure control *Adjustment of mA and/or kV according to patient size (this includes techniques or standardized protocols for targeted exams where dose is matched to indication/reason for exam; i.e. extremities or head) *Use of iterative reconstruction technique DLP: 315 mGy-cm COMPARISON: CTA of the chest dated from 03/26/2022. CT abdomen/pelvis dated from 12/30/2021. PET/CT dated from 10/21/2021. FINDINGS: NECK AND VISUALIZED HEAD: Redemonstration of erosion and enlargement of the sella turcica with abnormal FDG activity in the pituitary gland, SUVmax 11.9 (slice 31/813) previously 20.1. No other foci of abnormal FDG activity present in the neck or visualized brain. THORAX: Lung: Numerous pulmonary nodules, some of which are fairly irregular, are decreased in size when compared to the PET/CT from September 2021 and demonstrate decreased FDG uptake. For instance: 1. An 8 mm right lower lobe nodule (102:504) previously 1.7 cm. SUVmax 0.9, previously 4.1. 2. A 1.2 cm right middle lobe nodule (102:537) previously 1.7 cm. SUVmax 1.4, previously 8.1. 3. A 0.8 cm left lower lobe nodule (102:559) previously 1.1 cm. SUVmax 1.5, previously 5.4. An area of architectural distortion in the anterior upper left lobe (slice 197/813) with mild FDG uptake is unchanged. Scattered cystic lucencies suggesting early emphysema, are stable. Bibasilar subsegmental atelectases in the lung bases are redemonstrated. Mediastinum: No FDG-avid lymphadenopathy. Normal heart size. Coronary calcifications and atherosclerotic disease of the thoracic aorta which is of normal diameter. No pericardial effusion. Pericardium/Pleura: No abnormal FDG uptake. No pleural effusion or pneumothorax. Chest Wall/Axilla: No FDG-avid lymphadenopathy. ABDOMEN AND PELVIS: Peritoneal Space: No abnormal FDG uptake. Liver, Gallbladder, Biliary Tree: No FDG-avid lesion. Normal appearance of the gallbladder. No biliary ductal dilatation. Pancreas: No abnormal FDG uptake. Spleen: No abnormal FDG activity. Adrenal Glands: No FDG-avid lesion. Kidneys and Ureters: No nephrolithiasis or hydronephrosis. Stable approximately up to 4 cm mass in the lower pole of the right kidney with FDG uptake similar to the adjacent renal parenchyma. Unchanged 2.7 cm water density photopenic cyst in the upper left kidney. Bladder: Decompressed limiting its evaluation. Gastrointestinal Tract: Postsurgical changes from sigmoidectomy with a left lower quadrant colostomy. There is moderate FDG uptake in the colostomy, SUVmax 6.5 (slice 517/813), previously 3.5. Abdominal Wall: Midline surgical scar with mild FDG uptake, decreased since prior PET. No significant hernia. Lymphovascular Structures: No FDG-avid lymphadenopathy. Pelvic Viscera: No abnormal FDG uptake. MUSCULOSKELETAL: Other than the erosions of the sella turcica, no other destructive FDG-avid bone lesions are noted. Degenerative changes of the spine. VASCULAR: Aortoiliac atherosclerosis. The abdominal aorta is of normal diameter. PET/PET CT fusion skull to thigh IMPRESSION: 1. Multiple pulmonary nodules demonstrate decreased size and decreased FDG uptake. 2. An intensely FDG-avid expansile pituitary lesion, better characterized on a recent MR from 11/11/2021, is redemonstrated with decreased FDG activity when compared to prior PET from September 2021. 3. Again noted, right lower pole renal mass with FDG uptake similar to the adjacent parenchyma, concerning for a renal cell carcinoma. This was previously biopsied on 09/08/2021, the final biopsy reports are not available at the moment of this dictation. 4. Postsurgical changes in the abdomen with a left lower quadrant colostomy. There is increased FDG activity in the colostomy which is nonspecific and could be infectious or inflammatory. Recommend correlation with physical examination.
== END 2022-04-07 10:02 | disposition home or self-care (01) ==
LOC: HO.PET 10:01
PROVIDERS: Visit Provider Internal Medicine
DX: Z13.89 Encounter for screening for other disorder (principal)

== ENCOUNTER 2022-04-21 08:56 | Day surgery (SDC) | payer OTHER, SELFPAY ==
--- NOTE | ~2022-04-21 | IR_ITS ---
PROCEDURE: IR INSERTION OF TUNNEL CATHETER IR US-GUIDED VENOUS ACCESS CLINICAL INFORMATION: Colorectal and liver cancer. COMPARISON: None. TECHNIQUE: Procedure and risks and benefits including bleeding, infection and pneumothorax were discussed with the patient and informed consent was obtained. All elements of maximal sterile barrier technique followed including use of cap, mask, sterile gown, sterile gloves, a sterile full body drape and hand hygiene. Also followed skin preparation with 2% chlorhexidine for cutaneous antisepsis, and sterile ultrasound preparation with sterile gel and probe cover when applicable. The right neck and chest were prepped and draped in the usual sterile fashion. The skin and soft tissues were anesthetized with 1% lidocaine plain. Using ultrasound guidance and a 5 [place] micropuncture system, right internal jugular vein access was obtained. Over a 0.018 wire, a 5 [place] dilator was positioned in the SVC. The skin and soft tissues of the right upper anterior chest were anesthetized with 1% lidocaine plain. A small incision was made. Using blunt dissection, subcutaneous pocket was created. A subcutaneous tunnel from the chest to the neck incision was anesthetized with 1% lidocaine plain. Using a tunneler, a 6.6 [place] single-lumen catheter was tunneled from the chest to the neck incision. The catheter was attached to the port. The port was positioned in the subcutaneous pocket and secured using two 2-0 nonabsorbable sutures. A 0.035 guidewire was advanced through the 5 [place] dilator into the IVC. The 5 [place] dilator was exchanged for a 7 [place] peel-away sheath. Using bent wire technique, catheter length was estimated and the catheter was cut. Catheter length is 23 cm. The catheter was fed through the peel-away sheath. The neck incision was closed using a 4-0 absorbable subcuticular suture. The chest incision was closed using four 3-0 absorbable interrupted sutures followed by a running subcuticular 4-0 absorbable suture. The port was accessed. The port had good blood return, flushed easily and was instilled with 5 mL heparin 100 unit per mL solution. Real-time ultrasound guidance was used to document vein patency and for needle entry. A formal ultrasound picture was recorded. Fluoroscopy time: 0.6 minutes. DAP: 1.9 cGy-cm2. Images: 1 saved fluoroscopic image. Patient received Versed 1.5 mg and fentanyl 50 mcg intravenously during the procedure. Conscious sedation was provided by registered nurse under my direct supervision. Total sedation time was 38 minutes. FINDINGS: There is a right internal jugular single-lumen dignity 6.6 [place] Port-A-Cath with tip projecting over the cavoatrial junction. IR/IR us guide venous access IMPRESSION: Right internal jugular Port-A-Cath placement.
--- NOTE | ~2022-04-21 | IR_ITS ---
PROCEDURE: IR INSERTION OF TUNNEL CATHETER IR US-GUIDED VENOUS ACCESS CLINICAL INFORMATION: Colorectal and liver cancer. COMPARISON: None. TECHNIQUE: Procedure and risks and benefits including bleeding, infection and pneumothorax were discussed with the patient and informed consent was obtained. All elements of maximal sterile barrier technique followed including use of cap, mask, sterile gown, sterile gloves, a sterile full body drape and hand hygiene. Also followed skin preparation with 2% chlorhexidine for cutaneous antisepsis, and sterile ultrasound preparation with sterile gel and probe cover when applicable. The right neck and chest were prepped and draped in the usual sterile fashion. The skin and soft tissues were anesthetized with 1% lidocaine plain. Using ultrasound guidance and a 5 [place] micropuncture system, right internal jugular vein access was obtained. Over a 0.018 wire, a 5 [place] dilator was positioned in the SVC. The skin and soft tissues of the right upper anterior chest were anesthetized with 1% lidocaine plain. A small incision was made. Using blunt dissection, subcutaneous pocket was created. A subcutaneous tunnel from the chest to the neck incision was anesthetized with 1% lidocaine plain. Using a tunneler, a 6.6 [place] single-lumen catheter was tunneled from the chest to the neck incision. The catheter was attached to the port. The port was positioned in the subcutaneous pocket and secured using two 2-0 nonabsorbable sutures. A 0.035 guidewire was advanced through the 5 [place] dilator into the IVC. The 5 [place] dilator was exchanged for a 7 [place] peel-away sheath. Using bent wire technique, catheter length was estimated and the catheter was cut. Catheter length is 23 cm. The catheter was fed through the peel-away sheath. The neck incision was closed using a 4-0 absorbable subcuticular suture. The chest incision was closed using four 3-0 absorbable interrupted sutures followed by a running subcuticular 4-0 absorbable suture. The port was accessed. The port had good blood return, flushed easily and was instilled with 5 mL heparin 100 unit per mL solution. Real-time ultrasound guidance was used to document vein patency and for needle entry. A formal ultrasound picture was recorded. Fluoroscopy time: 0.6 minutes. DAP: 1.9 cGy-cm2. Images: 1 saved fluoroscopic image. Patient received Versed 1.5 mg and fentanyl 50 mcg intravenously during the procedure. Conscious sedation was provided by registered nurse under my direct supervision. Total sedation time was 38 minutes. FINDINGS: There is a right internal jugular single-lumen dignity 6.6 [place] Port-A-Cath with tip projecting over the cavoatrial junction. IR/IR cvc insert tunnel w prt/process improvement analyst IMPRESSION: Right internal jugular Port-A-Cath placement.
[2022-04-21 09:13] VITALS: BP 137/65; PULSE 48; RESP 17; TEMP 36.6; O2SAT 99; BMI 19.9
[2022-04-21 09:42] LABS: INTERNATIONAL NORM RATIO 0.9 (0.9-1.1); Prothrombin Time 10.5 SEC (10.0-13.1)
[2022-04-21 09:45] LABS: Partial Thromboplastin Time 35.8 SEC (26.0-36.4)
[2022-04-21] MEDS: Lidocaine HCl 2% PF/Epi 1:200 20 ML VIAL INFILTRATI (11:54)
[2022-04-21] MEDS: Heparin Sodium,Porcine Flush 500 UNIT/5 ML SYRINGE IVFLUSH (11:55)
--- NOTE | 2022-04-21 12:06 | HO.RADPN ---
RADIOLOGY Narrative Narrative: RIJ 6.6 fr Dignity port placed. Tip at cavoatrial junction.
[2022-04-21 12:16] VITALS: BP 148/54; PULSE 52; RESP 12; TEMP 36.3; O2SAT 98
[2022-04-21 12:30] VITALS: BP 133/61; PULSE 66; RESP 16; O2SAT 98
[2022-04-21 12:45] VITALS: BP 111/66; PULSE 64; RESP 16; O2SAT 98
[2022-04-21 13:00] VITALS: BP 106/70; PULSE 67; RESP 16; O2SAT 98
[2022-04-21 13:12] VITALS: BP 127/73; PULSE 56; RESP 16; TEMP 36.3; O2SAT 98
== END 2022-04-21 13:14 | disposition home or self-care (01) ==
PROVIDERS: Radiology Diagnostic Radiology; PCP Nurse Practitioner Family; Visit Provider Radiology Diagnostic Radiology
DX: C20 Malignant neoplasm of rectum (principal); C78.01 Secondary malignant neoplasm of right lung; I10 Essential (primary) hypertension; Z79.899 Other long term (current) drug therapy; Z93.3 Colostomy status; Z87.891 Personal history of nicotine dependence
CPT/HCPCS: 36415; 36561; 76937; 85610; 85730; 99152; 99153; C1769; C1788; J0690; J1642; J2250; J3010

== ENCOUNTER → 2022-05-13 12:46 | Outpatient (REF) | payer OTHER, SELFPAY ==
--- NOTE | 2022-05-13 12:48 | CA_ITS ---
Transthoracic Echocardiogram Patient (Last, First, Middle): Alfredo Diallo, Gender: Male Date of : 1950 Age: 71 Procedure Date: 05/13/2022 Procedure Type: Transthoracic Echocardiogram Location: OP Height: 187.96 cm Weight: 68.04 kg BSA: 1.92 m2 Heart Rate: bpm BP: 130 / 73 mmHg Biofuels Manager: TO Referring MD: Lj Hogue MD Symptoms: I47.2 - Ventricular tachycardia Study Quality: Fair Conclusions: - The left ventricular systolic function is mildly decreased. The calculated ejection fraction is 51% by biplane method. - There is evidence of regional wall motion abnormalities. - There is moderate calcification of the aortic valve. Findings Left Ventricle Normal left ventricular cavity size. There is normal left ventricular wall thickness. The left ventricular systolic function is mildly decreased. The calculated ejection fraction is 51% by biplane method. There is evidence of regional wall motion abnormalities. Diastolic function is normal for age. Wall Motion Rest Echo Findings The basal inferolateral segment is hypokinetic. The basal inferior and basal inferoseptal segments are akinetic. Right Ventricle Normal right ventricular cavity size and systolic function. Atria Both atria are normal in size. Aortic Valve There is moderate calcification of the aortic valve. There is no aortic valve stenosis. There is no aortic valve regurgitation. Mitral Valve The mitral valve appears normal. There is no mitral valve regurgitation. There is no mitral valve stenosis. Pulmonic Valve The pulmonic valve is likely normal. Tricuspid Valve Normal tricuspid valve structure. There is trace tricuspid valve regurgitation. There is no evidence of pulmonary hypertension. Great Vessels The asc aorta is normal in size. Venous The inferior vena cava is normal in size and collapses greater than 50% with inspiration. Pericardium/Pleural There is no evidence of pericardial effusion. Prior Study Comparison No prior study available for comparison. Measurements 2D Linear Measurements IVSd: 0.91 0.6-0.9/0.6-1.0 cm LVIDd: 4.00 3.9-5.3/4.2-5.9 cm LVIDd Index: 2.08 2.4-3.2/2.2-3.1 cm/m2 LVIDs: 2.87 2.0-3.6 cm LVPWd: 0.82 0.7-1.1 cm LA Diam: 2.00 2.7-3.8/3.0-4.0 cm LAIDs Index: 1.04 1.5-2.3 cm/m2 LV Mass: 129.71 67-162/88-224 g LV Mass Index: 67.56 43-95/49-115 g/m2 LVOT Diam: 2.30 3.0+(-)1.3 cm 2D Systolic Function EF 4C: 52.40 >55% EF 2C: 52.30 >55% EF BiP: 51.40 >55% Mitral Valve MV Pk E: 0.43 MV PK A: 0.51 MV Decel Time: 292.00 E/A: 0.80 E'Lateral: 7.40 E'Medial: 7.51 E/E' Med: 5.70 E/E' Lat: 5.80 PHT: 85.00 MVA PHT: 2.59 Decel Perkins: 1.47 Aortic Valve AoV Pk Perry: 1.12 AoV Mn Perry: 0.81 AoV VTI: 0.21 AoV Pk Grad: 5.00 Aov Mn Grad: 3.00 RICCI Cont.VTI: 2.45 LVOT LVOT Pk Perry: 0.69 LVOT Mn Perry: 0.45 LVOT VTI: 0.13 LVOT Pk Grad: 2.00 LVOT Mn Grad: 1.00 LVOT Diam: 2.30 LVOT Area: 4.15 Diastolic Function MV Pk E: 0.43 MV Pk A: 0.51 E/A: 0.80 E'Medial: 7.51 E/E' Med: 5.70 E' Laterial: 7.40 E/E' Lat: 5.80 Right Ventricle TAPSE (mm): 21.50 TVS' Perry: 12.40 Tricuspid Valve TR Pk Perry: 2.02 TR Pk Grad: 16.00 RA Press: 3.00 RVSP: 19.00 Great Vessels Aorta Sinus of Valsalva: 3.51 2.0-3.[address] [place]: 2.24 1.7-3.4 cm Ao Asc: 3.20 2.1-3.4 cm Updated in Other Vendor System with Status of Final Lj Hogue MD electronically signed on 05/14/2022 11:18:29 AM with status of Final
--- NOTE | 2022-05-14 08:57 | HM_ITS ---
Conclusion: 1. Patient was monitored for total period of 3 days and 1 hour 2. Baseline was normal sinus rhythm with average heart rate of 73 beats per minute 3. Total of 421 PACs accounting for 0.13% of total beats account for occasional PACs which short runs of SVT consistent with SVT. 4. Rare PVCs with 1 3 beat ganesh of nonsustained VT 5. No significant pauses or bradycardia noted 6. Patient reported 1 event which correlated with sinus rhythm MTDD
== END ==
LOC: HO.CARD 12:46
PROVIDERS: PCP Nurse Practitioner Family; Visit Provider Internal Medicine
DX: I47.20 Ventricular tachycardia, unspecified (principal)
CPT/HCPCS: 93242; 93306

== ENCOUNTER 2022-05-18 00:59 | Inpatient (IN) | payer OTHER, SELFPAY ==
[2022-05-18] VITALS (12 sets, daily range): BP systolic 66–196; BP diastolic 38–84; PULSE 47–113; RESP 12–20; TEMP 36.3–38.6; O2SAT 96–100; BMI 19.6
--- NOTE | ~2022-05-18 | XR_ITS ---
EXAMINATION: XR CHEST CLINICAL INFORMATION: Fever/sepsis COMPARISON: Chest x-ray and CTA chest March 26, 2022 TECHNIQUE: Frontal view of the chest was obtained. FINDINGS: Cardiac silhouette is normal in size. Right chest port with tip terminating within the distal SVC. The lungs are well aerated. There is no lobar consolidation. No pleural effusion or pneumothorax. Known small pulmonary nodules are not well appreciated on today's radiographs. XR/XR chest 1V IMPRESSION: No acute pulmonary pathology.
--- NOTE | ~2022-05-18 | CT_ITS ---
EXAMINATION: CT HEAD WITHOUT CONTRAST CLINICAL INFORMATION: Headache. Blood thinners. COMPARISON: MRI brain dated 11/11/2021 TECHNIQUE: Contiguous axial imaging was performed from the skull base to vertex without intravenous administration of contrast. This CT examination was performed using dose optimization techniques as appropriate, variously including the following: *Automated exposure control *Adjustment of mA and/or kV according to patient size (this includes techniques or standardized protocols for targeted exams where dose is matched to indication/reason for exam; i.e. extremities or head) *Use of iterative reconstruction technique DLP: 731 mGy-cm FINDINGS: There is no evidence of acute intracranial hemorrhage or territorial infarction. Again seen is an approximately 2 cm left pituitary mass expanding the sella turcica and extending to the left cavernous sinus, as better seen on the previous MRI. No appreciable change in size since then.. Oleary to white matter differentiation is well preserved. No extra-axial fluid collections are identified. No hydrocephalus. No significant volume loss. There is no abnormal attenuation within the brain parenchyma. No acute osseous or soft tissue abnormality. The mastoid air cells and visualized portions of the paranasal sinuses are well aerated. CT/CT head/brain wo IV con IMPRESSION: No acute intracranial pathology. Grossly stable pituitary mass.
--- NOTE | 2022-05-18 01:58 | ECG_ITS ---
Test Reason : HEADACHE Blood Pressure : / mmHG Vent. Rate : 055 BPM Atrial Rate : 055 BPM P-R Int : 174 ms QRS Dur : 102 ms QT Int : 484 ms P-R-T Axes : 085 061 069 degrees QTc Int : 463 ms Sinus bradycardia Intra-ventricular conduction delay Otherwise normal ECG When compared with ECG of 26-MAR-2022 09:51, Vent. rate has decreased BY 32 BPM Referred By: Jess Ariza Electronically Signed By:TAIWO VERDE MD
[2022-05-18] MEDS: Ondansetron ODT 4 MG TAB.RAPDIS TRANSLINGU (02:16)
--- NOTE | 2022-05-18 02:29 | ED.HA ---
HPI - Headache General Chief Complaint: Headache Stated Complaint: migraine, n/v Time Seen by Provider: 05/18/22 01:57 Source: patient and family () Mode of arrival: ambulatory History of Present Illness HPI Narrative: 71-year-old male who presents with developing a severe headache at the left frontal portion without visual changes and has been associated with nausea and vomiting. Patient states he got is flu shot yesterday and also endorses that he is currently on chemotherapy and knows that he has ?a spot on his brain?. He denies any difficulty with walking and denies any difficulty with speech or unilateral numbness/tingling/weakness. Related Data Home Medications Medication Instructions Recorded Confirmed ascorbate calcium (vitamin C) 500 500 mg PO DAILY 10/09/21 04/29/22 mg tablet ferrous sulfate 325 mg (65 mg 325 mg PO DAILY 10/09/21 04/29/22 iron) tablet capecitabine 500 mg tablet 1,500 mg PO BID 01/29/22 04/29/22 dexamethasone 4 mg tablet 4 mg PO BID 01/29/22 04/29/22 loperamide 2 mg capsule 2 mg PO Q4H PRN Diarrhea 04/08/22 04/29/22 Previous Rx's Medication Instructions Recorded ondansetron 8 mg disintegrating 8 mg PO Q8H PRN Nausea #30 tabs 11/05/21 tablet metoprolol tartrate 25 mg tablet 12.5 mg PO BID #30 tabs 01/09/22 midodrine 5 mg tablet 5 mg PO TID #90 tabs 01/09/22 apixaban 5 mg tablet 5 mg PO BID #60 tabs 04/24/22 oxycodone 5 mg capsule 5 mg PO Q8H PRN pain #5 caps 05/18/22 Allergies Allergy/AdvReac Type Severity Reaction Status Date / Time No Known Allergies Allergy Verified 05/18/22 01:18 Review of Systems Review of Systems: Pertinent positives and negatives as stated in HPI 10 point review of systems is otherwise negative. 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 Colonic mass Colostomy in place HTN (hypertension) Kidney mass No family history of cancer Surgical History History of surgery S/P colon resection Family History Family History Mother Parkinsons disease Father ESRD (end stage renal disease) Other No family history of cancer Social History Social History Household Members: Spouse Housing: House Are you a primary healthcare market consultant to a significant other at home: No Do you presently have visiting nurse or other home services: No Alcohol intake: former Patient Tobacco Use Status: Former Tobacco user Quit Date: 30 y.o Years Smoked: quit 1989 e-Cigarette/Vaping Use: Never Used Second Hand Smoke Exposure: No Advance Directives: No Advance Directives Information Provided: No service: Yes ( ) Current occupational status: employed and retired Cognitive needs: No Hearing needs: No Vision needs: No Physical Exam Vital Signs: Vital Signs: Last Vital Signs Temp 98.7 F 05/18/22 05:22 Pulse 62 05/18/22 05:22 Resp 14 05/18/22 05:22 BP 179/78 H 05/18/22 05:22 Pulse Ox 96 05/18/22 05:22 O2 Del Method 05/18/22 05:22 BMI result Body Mass Index 19.6 VITAL SIGNS: Reviewed. GENERAL: Well developed, well nourished, in no acute distress. HEAD: Normocephalic/atraumatic EYES: PERRLA, EOMI EARS: Ext canals without abnormality OROPHARYNX: no oral lesions noted, posterior pharynx clear LUNGS: Normal breath sounds. No adventitious sounds or accessory muscle use. SpO2<99> CARDIOVASCULAR: Regular rate and rhythm without noted murmurs, no JVD or lower extremity edema. ABDOMEN: Soft, non-tender, non-distended with bowel sounds. MUSCULOSKELETAL: No tenderness, deformities, or effusions noted on gross inspection. EXTREMITIES: No cyanosis, clubbing or edema. SKIN: Inspection of the skin reveals no rashes NEUROLOGIC: Alert and oriented x 4. Strength and sensation to light touch were grossly intact x 4, no facial asymmetry,, no pronator drift, cranial nerves 2-12 are grossly intact.. Course Course Course Narrative: 71-year-old male with history and clinical presentation on chronic anticoagulation and will 1st of all rule out hemorrhagic etiology for patient's headache and then worked him up thereafter with basic lab work and administer analgesics. Patient has no complaints of visual disturbance. Review of all investigations without acute findings when compared to prior, CT scan of the head negative for acute bleed and demonstrates a grossly stable pituitary mass which is consistent with patient's report and underlying known cancer. Patient has received Tylenol as well as oxycodone for his headache which as per is new, however he continues to have a headache despite it decreasing somewhat. There are no focal deficits. At this time patient is feeling drowsy presumably secondary to the oxycodone and wishes to continue sleeping for a little while longer. He does have an appointment this morning at 09:30 with his senior electrical controls engineer. His son is at bedside. MDM - Headache Lab Data Result diagrams: 05/18/22 02:52 05/18/22 02:51 Labs: Lab Results 05/18/22 05/18/22 05/18/22 Range/Units 02:51 02:51 02:51 WBC (4.8-10.8) X10*3/uL RBC (4.60-5.80) X10*6/uL Hgb (14.0-18.0) g/dl Hct (42.0-52.0) % MCV (80.0-98.0) fL MCH (27.0-33.0) pg MCHC (31.0-36.0) g/dl RDW (11.0-16.0) % Plt Count (160-400) X10*3/uL MPV (9.4-12.4) fL Immature Gran % (Auto) (0.0-0.4) % Neut % (Auto) (45-73) % Lymph % (Auto) (20-40) % Blair % (Auto) (2-11) % Eos % (Auto) (0-4) % Baso % (Auto) (0-2) % Lymph # (Auto) (1.2-4.9) X10*3/uL Blair # (Auto) (0.1-1.2) X10*3/uL Eos # (Auto) (0.0-0.4) X10*3/uL Baso # (Auto) (0.0-0.2) X10*3/uL Abs Immat Gran (auto) (0.00-0.03) X10*3/uL Absolute Neuts (auto) (2.0-8.3) x10*3/uL Absolute Nucleated RBC (0.0-0.012) X10*3/uL Nucleated RBC % (auto) (0.0-0.2) /100WBC PT 14.3 H (10.0-13.1) SEC INR 1.2 H (0.9-1.1) Sodium 140 (135-145) mmol/L Potassium 3.2 L (3.3-5.1) mmol/L Chloride 105 (96-108) mmol/L Carbon Dioxide 20 L (22-29) mmol/L Anion Gap 18 (12-20) BUN 11 (9-16) mg/dL Creatinine 0.78 (0.5-1.4) mg/dL Estim Creat Clear Calc 80.8 Estimated GFR > 60 Random Glucose 117 H (60-115) mg/dL Calcium 9.2 (8.4-10.2) mg/dL Magnesium 1.5 L (1.6-2.6) mg/dL Total Bilirubin 0.4 (0.0-1.0) mg/dL AST 24 (5-37) U/L ALT 15 (0-40) U/L Alkaline Phosphatase 77 (39-117) U/L Troponin I High Sens 4.9 (<3.5-35.0) ng/L Total Protein 5.7 L (6.5-8.0) g/dL Albumin 3.8 (3.5-5.0) g/dL 05/18/22 Range/Units 02:52 WBC 4.0 L (4.8-10.8) X10*3/uL RBC 3.34 L (4.60-5.80) X10*6/uL Hgb 11.1 L (14.0-18.0) g/dl Hct 33.6 L (42.0-52.0) % MCV 100.6 H (80.0-98.0) fL MCH 33.2 H (27.0-33.0) pg MCHC 33.0 (31.0-36.0) g/dl RDW 16.9 H (11.0-16.0) % Plt Count 167 D (160-400) X10*3/uL MPV 9.5 (9.4-12.4) fL Immature Gran % (Auto) 0.2 (0.0-0.4) % Neut % (Auto) 58.7 (45-73) % Lymph % (Auto) 31.2 (20-40) % Blair % (Auto) 7.7 (2-11) % Eos % (Auto) 1.7 (0-4) % Baso % (Auto) 0.5 (0-2) % Lymph # (Auto) 1.3 (1.2-4.9) X10*3/uL Blair # (Auto) 0.3 (0.1-1.2) X10*3/uL Eos # (Auto) 0.1 (0.0-0.4) X10*3/uL Baso # (Auto) 0.0 (0.0-0.2) X10*3/uL Abs Immat Gran (auto) 0.01 (0.00-0.03) X10*3/uL Absolute Neuts (auto) 2.4 (2.0-8.3) x10*3/uL Absolute Nucleated RBC 0.000 (0.0-0.012) X10*3/uL Nucleated RBC % (auto) 0.0 (0.0-0.2) /100WBC PT (10.0-13.1) SEC INR (0.9-1.1) Sodium (135-145) mmol/L Potassium (3.3-5.1) mmol/L Chloride (96-108) mmol/L Carbon Dioxide (22-29) mmol/L Anion Gap (12-20) BUN (9-16) mg/dL Creatinine (0.5-1.4) mg/dL Estim Creat Clear Calc Estimated GFR Random Glucose (60-115) mg/dL Calcium (8.4-10.2) mg/dL Magnesium (1.6-2.6) mg/dL Total Bilirubin (0.0-1.0) mg/dL AST (5-37) U/L ALT (0-40) U/L Alkaline Phosphatase (39-117) U/L Troponin I High Sens (<3.5-35.0) ng/L Total Protein (6.5-8.0) g/dL Albumin (3.5-5.0) g/dL ECG Data Attestation: I personally reviewed and interpreted this ECG as follows: Prior ECG tracings: available for review Interpretation: Sinus bradycardia, HR -55, no STEMI, WI/QTC are within normal limits. Discharge Plan Discharge Clinical Impression: Headache, Mass of pituitary Patient Disposition: Still a Patient Instructions: General Headache (ED) Additional Instructions: 1. Resume all home medications as prescribed. 2. Keep your appointment with your senior electrical controls engineer as scheduled this morning. Return to the ER for any worsening symptoms. Prescriptions: New oxycodone 5 mg capsule 5 mg PO Q8H PRN (Reason: pain) Qty: 5 0RF Rx Instructions: Partial Fill upon patient request. No Action ondansetron 8 mg Tablet,Disintegrating 8 mg PO Q8H PRN (Reason: Nausea) Qty: 30 3RF capecitabine 500 mg tablet 1,500 mg PO BID Rx Instructions: for 14 days per 21-day cycle; must administer with water 30 minutes after a meal loperamide [Imodium] 2 mg Capsule 2 mg PO Q4H PRN (Reason: Diarrhea) Rx Instructions: administer after each loose stool until symptoms controlled; do not exceed 8 mg per 24 hrs apixaban 5 mg Tablet 5 mg PO BID Qty: 60 3RF midodrine 5 mg Tablet 5 mg PO TID Qty: 90 0RF metoprolol tartrate 25 mg tablet 12.5 mg PO BID Qty: 30 0RF ascorbate calcium (vitamin C) 500 mg tablet 500 mg PO DAILY ferrous sulfate 325 mg (65 mg iron) tablet 325 mg PO DAILY dexamethasone 4 mg tablet 4 mg PO BID Rx Instructions: Take BID on days 2 and 3 after chemo
[2022-05-18 02:56] LABS: Basophils Percent Auto 0.5 % (0-2); Eosinophils Absolute Auto 0.1 X10*3/uL (0.0-0.4); Eosinophils Percent Auto 1.7 % (0-4); Hematocrit 33.6 % (42.0-52.0); Hemoglobin 11.1 g/dl (14.0-18.0); Imm Gran Abs Auto 0.01 X10*3/uL (0.00-0.03); Imm Gran Pct Auto 0.2 % (0.0-0.4); Lymphocytes Absolute Auto 1.3 X10*3/uL (1.2-4.9); Lymphocytes Percent Auto 31.2 % (20-40); MANUAL DIFF FLAG NO; Mean Corpuscular Hemoglobin 33.2 pg (27.0-33.0); Mean Corpuscular Volume 100.6 fL (80.0-98.0); Mean Platelet Volume 9.5 fL (9.4-12.4); Monocytes Absolute Auto 0.3 X10*3/uL (0.1-1.2); Monocytes Percent Auto 7.7 % (2-11); Neutrophils Absolute Auto 2.4 x10*3/uL (2.0-8.3); Neutrophils Percent Auto 58.7 % (45-73); Platelet Count 167 X10*3/uL (160-400); Red Blood Count 3.34 X10*6/uL (4.60-5.80); Red Cell Distribution Width 16.9 % (11.0-16.0)
[2022-05-18] MEDS: Acetaminophen 325 MG TABLET 975 MG PO (02:56)
--- NOTE | 2022-05-18 02:58 | PC.NURSE ---
medicated per provider order.
[2022-05-18 03:02] LABS: INTERNATIONAL NORM RATIO 1.2 (0.9-1.1); Prothrombin Time 14.3 SEC (10.0-13.1)
[2022-05-18 03:17] LABS: Alanine Aminotransferase 15 U/L (0-40); Albumin Level 3.8 g/dL (3.5-5.0); Alkaline Phosphatase 77 U/L (39-117); Anion Gap 18 (12-20); Aspartate Amino Transferase 24 U/L (5-37); Bilirubin Total 0.4 mg/dL (0.0-1.0); Blood Urea Nitrogen 11 mg/dL (9-16); Calcium 9.2 mg/dL (8.4-10.2); Carbon Dioxide 20 mmol/L (22-29); Chloride 105 mmol/L (96-108); Creatinine Clr Calc Pharmacy 80.8; Estimated Glomerular Filt Rate > 60; Glucose Random 117 mg/dL (60-115); Potassium 3.2 mmol/L (3.3-5.1); Sodium 140 mmol/L (135-145); Total Protein 5.7 g/dL (6.5-8.0)
[2022-05-18 03:24] LABS: Troponin-I High Sensitivity 4.9 ng/L (<3.5-35.0)
[2022-05-18 03:39] LABS: Magnesium 1.5 mg/dL (1.6-2.6)
[2022-05-18] MEDS: oxyCODONE HCl Immed Release 5 MG TABLET PO (04:05)
[2022-05-18] MEDS: Magnesium Sulfate/D5W 1 GM/100 ML PIGGYBACK IV (04:23)
--- NOTE | 2022-05-18 10:20 | PC.NURSE ---
pt c/o dizziness while trying to use the urinal. pt returned to bed. aware.
[2022-05-18] MEDS: Acetaminophen 325 MG TABLET 650 MG PO ×2 (11:08→18:08)
[2022-05-18] MEDS: 0.9 % Sodium Chloride 1,000 ML 999 ML IV (11:09)
[2022-05-18] MEDS: Piperacillin Sodium/Tazobactam 4.5 GM in 0.9 % Sodium Chloride 100 ML IV (11:16)
[2022-05-18 11:29] LABS: MANUAL DIFF FLAG NO
[2022-05-18 11:31] LABS: Basophils Percent Auto 0.4 % (0-2); Eosinophils Percent Auto 0.4 % (0-4); Hematocrit 34.8 % (42.0-52.0); Hemoglobin 11.5 g/dl (14.0-18.0); Imm Gran Abs Auto 0.01 X10*3/uL (0.00-0.03); Imm Gran Pct Auto 0.2 % (0.0-0.4); Lymphocytes Absolute Auto 0.8 X10*3/uL (1.2-4.9); Lymphocytes Percent Auto 15.2 % (20-40); Mean Corpuscular Hemoglobin 33.1 pg (27.0-33.0); Mean Corpuscular Volume 100.3 fL (80.0-98.0); Mean Platelet Volume 9.5 fL (9.4-12.4); Monocytes Absolute Auto 0.6 X10*3/uL (0.1-1.2); Monocytes Percent Auto 11.1 % (2-11); Neutrophils Absolute Auto 3.7 x10*3/uL (2.0-8.3); Neutrophils Percent Auto 72.7 % (45-73); Platelet Count 158 X10*3/uL (160-400); Red Blood Count 3.47 X10*6/uL (4.60-5.80); Red Cell Distribution Width 16.8 % (11.0-16.0); White Blood Count 5.1 X10*3/uL (4.8-10.8)
[2022-05-18 11:31] LABS: COVID-19 Test Negative (Negative)
[2022-05-18 11:33] LABS: Lactic Acid 1.5 mmol/L (0.5-2.0)
[2022-05-18] MEDS: 0.9 % Sodium Chloride 500 ML 999 ML IVCONT (12:59)
[2022-05-18] MEDS: 0.9 % Sodium Chloride 500 ML 450 ML IV (12:59)
[2022-05-18] MEDS: vancomycin HCL 1,000 MG in 0.9 % Sodium Chloride 250 ML 270 MG IV (13:11)
--- NOTE | 2022-05-18 16:51 | PM.EVENT ---
Event Note Date of Service: 05/18/22 Event Note: Patient came to the hospital this morning because he had mild headache and the also had some nausea vomitingx2 episode after eating food. He denies any other complaints-including chest pain or shortness of breath or abdominal pain or cough or phlegm or ear pain or runny nose or any URI like symptoms. Denies any sick contacts or travel Vaccinated COVID x3 with Pfizer He denies feeling feverish but in the emergency room the found to have fever of 101.4x1, his blood pressure was on the lower side as per ED physician: Patient received IV fluid and IV antibiotics unclear? Currently chest x-ray negative as well as CT head also negative. History cohn patient has history of colon cancer and resection and now has colostomy, also has history of lung cancer as per the patient and pituitary mass, renal mass . He follows up with Dr. Cisneros. Gets chemo for that. He also has history of possible orthostatic hypotension since he says that his blood pressure always fluctuate when he is standing up. Also has history of pulmonary embolism on Eliquis already. Lab imaging reviewed from ED: Chest x-ray negative, blood cultures sent, patient does not have any leukocytosis and any other fever episode afterwards. UA still needs to be sent Patient received vanco and Zosyn in ED as well as magnesium for hypomagnesemia, Tylenol and oxycodone. Assessment and plan: 1. SIRS possible. Patient has fever and tachycardia time 1 episode Blood pressure initial reading low secondary to possible orthostatic hypotension and patient did not took her midodrine which he is on. In ED received fluid and antibiotics. Blood cultures sent,res panel, lactic acid normal. ? Unclear source of fever. continue vanco/zosyn 2. orthostasis : Anything continue gentle hydration may be lactate Ringer, introduce home midodrine Monitor blood pressure closely, hold blood pressure medications for now 3. Headaches:? Unclear etiology CT scan shows pituitary lesion did not change in size If continue to have persistent headaches then will consider neurology evaluation.
[2022-05-18 16:55] LABS: Appearance Urine Cloudy; Color Urine Yellow; Glucose Urine UA Negative (Negative); Leukocyte Esterase Urine Negative (Negative); Nitrite Urine Negative (Negative); PH 5.5 (5.0-9.0); Specific Gravity - Urine 1.025 (1.005-1.025); UMIC TRIGGER UACC YES; Urine Blood Small (1+) (Negative); Urine Ketones Trace mg/dL (Negative); Urine Protein Trace mg/dL (Neg-Trace)
--- NOTE | 2022-05-18 16:59 | P.HPHOSP_ITS ---
History of Present Illness Date of Service: 05/18/22 Attending physician on admission: Mary Poon Chief Complaint: Headache 71-year-old man presenting to the ER with severe left frontal headache with associated nausea and vomiting. He denied any visual changes, syncope. Apparently he got his flu shot yesterday and he is currently on chemotherapy. He denied chest pain, shortness breath, difficulty with ambulation, recent illness, recent travel, sick contacts. His appetite has been poor. He was noted to have multiple electrolyte abnormalities including potassium of 3.2, magnesium 1.5. He did have a fever of 101.4 with 1 episode of tachycardia, no leukocytosis or leukopenia, chest x-ray negative consolidation or effusion, UA negative, negative COVID. He was given a dose vancomycin and Zosyn as well as IV fluids and pain medications. He will be placed on observation for headache. 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 HTN (hypertension) Mass of pituitary Rectosigmoid cancer Renal cell carcinoma Family History Mother Parkinsons disease Father ESRD (end stage renal disease) Other No family history of cancer Surgical History (Updated 05/18/22 @ 17:04 by Blank Mims NP) H/O hernia repair S/P colon resection Social History Household Members: Family Housing: House Are you a primary adult care manager to a significant other at home: No Do you presently have visiting nurse or other home services: No Alcohol intake: former Patient Tobacco Use Status: Former Tobacco user Quit Date: 30 y.o Years Smoked: quit 1989 e-Cigarette/Vaping Use: Never Used Second Hand Smoke Exposure: No Use of substances other than those prescribed or required for medical reasons: No Advance Directives: No Advance Directives Information Provided: No Do you have thoughts of harming others: None Do you have a plan to hurt others: No Plan Eating poorly because of decreased appetite: No Nutrition Risks: No Nutritional Risk service: Yes ( ) Current occupational status: employed and retired Cognitive needs: No Hearing needs: No Vision needs: No Meds Allergies Allergy/AdvReac Type Severity Reaction Status Date / Time No Known Allergies Allergy Verified 05/18/22 01:18 Active Medications: Current Medications Potassium Chloride (Potassium Chloride Packet 20 Meq Packet) 40 meq PO ONCE ONE Stop: 05/18/22 16:51 Home Medications Medication Instructions Recorded Confirmed Last Taken Type ascorbate calcium (vitamin C) 500 500 mg PO DAILY 10/09/21 05/18/22 Unknown History mg tablet ferrous sulfate 325 mg (65 mg 325 mg PO DAILY 10/09/21 05/18/22 Unknown History iron) tablet capecitabine 500 mg tablet 1,500 mg PO BID PRN 14 DAYS OF 01/29/22 05/18/22 04/21/22 History EACH CHEMO CYCLE dexamethasone 4 mg tablet 4 mg PO BID PRN DAY 2&3 OF CHEMO 01/29/22 05/18/22 Unknown History CYCLE loperamide 2 mg capsule 2 mg PO Q4H PRN Diarrhea 04/08/22 05/18/22 Unknown History Physical Exam Vital Signs and Narrative: Vital Signs: Last Vital Signs Temp 99.2 F 05/18/22 14:04 Pulse 62 05/18/22 14:53 Resp 14 05/18/22 14:53 BP 144/65 H 05/18/22 14:53 Pulse Ox 96 05/18/22 14:53 O2 Del Method 05/18/22 14:53 BMI result Body Mass Index 19.6 Appearing in no acute distress head is normocephalic atraumatic eyes pupils are PERRLA sclera is anicteric mouth throat mucous membranes are intact and moist neck is supple no lymphadenopathy, no JVD noted lung sounds are clear to auscultation, right chest port heart regular rate rhythm, clear S1, S2 positive bowel sounds, abdomen is soft, nontender neuro patient is alert x3, no focal deficits Results Labs CBC and Chem 7: 05/19/22 06:10 05/19/22 06:10 Labs: Laboratory Results - last 24 hr 05/18/22 05/18/22 05/18/22 02:51 02:51 02:51 MCV MCH MCHC RDW Plt Count MPV Immature Gran % (Auto) Neut % (Auto) Lymph % (Auto) [place] % (Auto) Eos % (Auto) Baso % (Auto) Lymph # (Auto) [place] # (Auto) Eos # (Auto) Baso # (Auto) Abs Immat Gran (auto) Absolute Neuts (auto) Absolute Nucleated RBC Nucleated RBC % (auto) PT 14.3 H INR 1.2 H Anion Gap 18 Estim Creat Clear Calc 80.8 Estimated GFR > 60 Random Glucose 117 H Lactic Acid Calcium 9.2 Magnesium 1.5 L Total Bilirubin 0.4 AST 24 ALT 15 Alkaline Phosphatase 77 Troponin I High Sens 4.9 Total Protein 5.7 L Albumin 3.8 Urine Color Urine Appearance Urine pH Ur Specific [place] Urine Protein Urine Glucose (UA) Urine Ketones Urine Blood Urine Nitrite Ur Leukocyte Esterase COVID-19 (JAS) COVID-Controlus 05/18/22 05/18/22 05/18/22 02:52 11:05 11:05 MCV 100.6 H MCH 33.2 H MCHC 33.0 RDW 16.9 H Plt Count 167 D MPV 9.5 Immature Gran % (Auto) 0.2 Neut % (Auto) 58.7 Lymph % (Auto) 31.2 [place] % (Auto) 7.7 Eos % (Auto) 1.7 Baso % (Auto) 0.5 Lymph # (Auto) 1.3 [place] # (Auto) 0.3 Eos # (Auto) 0.1 Baso # (Auto) 0.0 Abs Immat Gran (auto) 0.01 Absolute Neuts (auto) 2.4 Absolute Nucleated RBC 0.000 Nucleated RBC % (auto) 0.0 PT INR Anion Gap Estim Creat Clear Calc Estimated GFR Random Glucose Lactic Acid 1.5 Calcium Magnesium Total Bilirubin AST ALT Alkaline Phosphatase Troponin I High Sens Total Protein Albumin Urine Color Urine Appearance Urine pH Ur Specific [place] Urine Protein Urine Glucose (UA) Urine Ketones Urine Blood Urine Nitrite Ur Leukocyte Esterase COVID-19 (JAS) Negative COVID-19 [facility] Com See Note 05/18/22 05/18/22 11:26 16:41 MCV 100.3 H MCH 33.1 H MCHC 33.0 RDW 16.8 H Plt Count 158 L MPV 9.5 Immature Gran % (Auto) 0.2 Neut % (Auto) 72.7 Lymph % (Auto) 15.2 L [place] % (Auto) 11.1 H Eos % (Auto) 0.4 Baso % (Auto) 0.4 Lymph # (Auto) 0.8 L [place] # (Auto) 0.6 Eos # (Auto) 0.0 Baso # (Auto) 0.0 Abs Immat Gran (auto) 0.01 Absolute Neuts (auto) 3.7 Absolute Nucleated RBC 0.000 Nucleated RBC % (auto) 0.0 PT INR Anion Gap Estim Creat Clear Calc Estimated GFR Random Glucose Lactic Acid Calcium Magnesium Total Bilirubin AST ALT Alkaline Phosphatase Troponin I High Sens Total Protein Albumin Urine Color Yellow Urine Appearance Cloudy Urine pH 5.5 Ur Specific [place] 1.025 Urine Protein Trace Urine Glucose (UA) Negative Urine Ketones Trace Urine Blood Small (1+) H Urine Nitrite Negative Ur Leukocyte Esterase Negative COVID-19 (JAS) COVID-19 Clin Com Imaging Radiologist's Impressions: Impressions Head CT 05/18/22 02:25 IMPRESSION: No acute intracranial pathology. Grossly stable pituitary mass. Chest X-Ray 05/18/22 12:50 IMPRESSION: No acute pulmonary pathology. Assessment and Plan (1) Headache: Status: Acute Plan 71 year old man placed on observation for SIRS criteria with abormal electrolytes likely secondary to dehydration. New port placed to right chest one month ago for chemotherapy Sirs, unknown source. Fever, tachycardia, so far no source Due to patient's history of cancer, immunosuppressed, will continue antibiotics for now Blood cultures are pending Respiratory pathogen panel negative Headache. Resolving Head CT with no acute intracranial abnormality, stable pituitary mass Fioricet p.r.n. If headache continues consult Neurology Hypokalemia/hypomagnesemia. resolved Likely secondary to hypovolemia Will replete Follow BMP Orthostatic hypotension. resolved Likely secondary to hypovolemia IV fluids Follow blood pressures closely Continue midodrine History of pulmonary embolism Continue Eliquis History of rectal carcinoma, renal carcinoma, pituitary lesion Followed by Oncology DVT prophylaxis with [facility] Attending Dr. Quispe Full code DISPO Plan for home once medically cleared, blood cx neg Observation Quality Stroke Does the patient have a stroke diagnosis?: No VTE Prior VTE?: No VTE Risk Level:: Medical - moderate - high VTE Device Contraindication: Treatment Not Indicated VTE Drug Contraindication: N/A - Med Ordered
[2022-05-18 17:10] LABS: Lactic Acid 1.3 mmol/L (0.5-2.0)
[2022-05-18 17:11] LABS: Bacteria Urine None Seen (None Seen); Calcium Oxalate Crystals Urine Present; Hyaline Casts Urine 0-2 /LPF (0-2); Squamous Epithelial Cell Urine 0-2 /HPF (0-2); WBC Urine 0-5 /HPF (0-5)
[2022-05-18] MEDS: 0.9 % Sodium Chloride 1,000 ML 100 ML IVCONT (17:36)
[2022-05-18] MEDS: Potassium Chloride Packet 20 MEQ PACKET 40 MEQ PO (17:36)
[2022-05-18] MEDS: cefEPime HCl 1 GM in 0.9 % Sodium Chloride 50 ML IV (17:36)
--- NOTE | 2022-05-18 17:42 | PHA.MEDREC ---
Pharmacy Consult ? Medication Reconciliation Pharmacy has completed the medication reconciliation. SPOKE WITH AND PT. REVIEWED PT'S LIST
--- NOTE | 2022-05-18 20:17 | MHC.CM.PN ---
MARCELA 05/19. HCP on file. PCP Jose James [facility]. Current chemotherapy. Lives with . Occasionally uses cane/walker after chemo. [employer] x3-10/05/20, 10/26/20,&05/14/21. Pt is a , but no services. Has [employer] and Medicare part A. Pt denies need for services at discharge. D/C plan: Home without services. Family to transport. CM to follow for d/c planning.
[2022-05-19] VITALS (7 sets, daily range): BP systolic 154–192; BP diastolic 76–88; PULSE 73–98; RESP 14–19; TEMP 37.4–38; O2SAT 98–99
[2022-05-19] MEDS: cefEPime HCl 1 GM in 0.9 % Sodium Chloride 50 ML IV ×3 (01:09→17:19)
[2022-05-19] MEDS: 0.9 % Sodium Chloride 1,000 ML 100 ML IVCONT ×3 (03:59→22:56)
[2022-05-19] MEDS: Butalb/Acetamin/Caff 50/325/40 TABLET 1 TAB PO ×3 (04:04→21:05)
[2022-05-19 06:30] LABS: Hematocrit 35.6 % (42.0-52.0); Hemoglobin 11.9 g/dl (14.0-18.0); Mean Corpuscular HGB Conc 33.4 g/dl (31.0-36.0); Mean Corpuscular Hemoglobin 33.4 pg (27.0-33.0); Mean Platelet Volume 9.8 fL (9.4-12.4); Platelet Count 181 X10*3/uL (160-400); Red Blood Count 3.56 X10*6/uL (4.60-5.80); Red Cell Distribution Width 17.2 % (11.0-16.0); White Blood Count 6.5 X10*3/uL (4.8-10.8)
[2022-05-19 06:48] LABS: Magnesium 1.8 mg/dL (1.6-2.6)
[2022-05-19 06:51] LABS: Anion Gap 16 (12-20); Blood Urea Nitrogen 8 mg/dL (9-16); Calcium 8.6 mg/dL (8.4-10.2); Carbon Dioxide 19 mmol/L (22-29); Chloride 106 mmol/L (96-108); Estimated Glomerular Filt Rate > 60; Glucose Random 103 mg/dL (60-115); Potassium 4.3 mmol/L (3.3-5.1); Sodium 137 mmol/L (135-145)
[2022-05-19] MEDS: ondansetron HCL 4 MG/2 ML VIAL IVPUSH (08:19)
--- NOTE | 2022-05-19 08:19 | PC.NURSE ---
pt ate a small amount then vomited stomach contents medicated as charted with zofran.
[2022-05-19 11:40] LABS: Adenovirus PCR Not Detected (Not Detect.); Bordetella parapertussis PCR Not Detected (Not Detect.); Bordetella pertussis PCR Not Detected (Not Detect.); Chlamydia pneumoniae PCR Not Detected (Not Detect.); Coronavirus 229E PCR Not Detected (Not Detect.); Coronavirus HKU1 PCR Not Detected (Not Detect.); Coronavirus NL63 PCR Not Detected (Not Detect.); Coronavirus OC43 PCR Not Detected (Not Detect.); SARS-CoV-2 PCR Not Detected (Not Detect.)
[2022-05-19 11:41] LABS: Human metapneumovirus PCR Not Detected (Not Detect.); Influenza A PCR Not Detected (Not Detect.); Influenza B PCR Not Detected (Not Detect.); Mycoplasma pneumoniae PCR Not Detected (Not Detect.); Parainfluenza 1 PCR Not Detected (Not Detect.); Parainfluenza 2 PCR Not Detected (Not Detect.); Parainfluenza 3 PCR Not Detected (Not Detect.); Parainfluenza 4 PCR Not Detected (Not Detect.); RSV PCR Not Detected (Not Detect.); Rhino/Enterovirus PCR Not Detected (Not Detect.)
--- NOTE | 2022-05-19 12:38 | HO.PM.IMPN ---
Subjective Subjective Date of Service: 05/19/22 Interval History: Follow up SIRS, headache Headache resolving, one episode of vomiting after eating a banana Review of Systems denies chest pain Denies shortness of breath Denies nausea vomiting diarrhea Denies fever chills Physical Exam Vital Signs: Vital Signs: Last Vital Signs Temp 100.4 F 05/19/22 10:47 Pulse 82 05/19/22 10:47 Resp 19 05/19/22 10:47 BP 178/77 H 05/19/22 10:47 Pulse Ox 98 05/19/22 10:47 O2 Del Method 05/19/22 10:47 BMI result Body Mass Index 19.6 Appearing in no acute distress Right chest port lung sounds are clear to auscultation heart regular rate rhythm, clear S1, S2 positive bowel sounds, abdomen is soft, nontender neuro patient is alert x3, no focal deficits Objective Data Active Medications Acetaminophen (Acetaminophen 325 Mg Tablet) 650 mg PO Q6H PRN PRN Reason: Pain, Mild (Pain Scale 1-3) Last Admin: 05/18/22 18:08 Dose: 650 mg Documented By: CARA Acetaminophen/Butalbital/Caffeine (Butalb/Acetamin/Caff 50/325/40 Tablet) 1 tab PO Q4H PRN PRN Reason: Headache Last Admin: 05/19/22 10:09 Dose: 1 tab Documented By: JUNE Apixaban (Apixaban 5 Mg Tablet) 5 mg PO BID [facility] Ascorbic Acid (Ascorbic Acid 500 Mg Tablet) 500 mg PO DAILY [facility] Ferrous Sulfate (Ferrous Sulfate 324 Mg Tablet.Dr) 324 mg PO DAILY [facility] Cefepime HCl 1 gm/ Sodium (Chloride) 50 mls @ 100 mls/hr IV Q8H [facility] Last Infusion: 05/19/22 10:41 Dose: 0 mls/hr Documented By: RADHA Sodium Chloride (Ns) 1,000 mls @ 100 mls/hr IVCONT .Q10H [facility] Last Admin: 05/19/22 03:59 Dose: 100 mls/hr Documented By: RODRIGO Loperamide HCl (Loperamide Hcl 2 Mg Capsule) 2 mg PO Q4H PRN PRN Reason: Diarrhea Metoprolol Tartrate (Metoprolol Tartrate 12.5 Mg Halftab) 12.5 mg PO BID [facility]; Protocol Midodrine (Midodrine Hcl 5 Mg Tablet) 5 mg PO TID [facility] Ondansetron HCl (Ondansetron Hcl 4 Mg/2 Ml Vial) 4 mg IVPUSH Q8H PRN PRN Reason: Nausea and Vomiting Last Admin: 05/19/22 08:19 Dose: 4 mg Documented By: JUNE Pharmacy Consult (Consult Rx Perform Med Rec) 1 each MISCELLANE ONCE PRN PRN Reason: Consult order Sodium Chloride (0.9 % Sodium Chloride Flush 3 Ml Syringe) 3 ml IVFLUSH QSHIFT [facility] Last Admin: 05/19/22 08:51 Dose: Not Given Documented By: JUNE Non-Admin Reason: IV Running Labs CBC & Chem 7: 05/19/22 06:10 05/19/22 06:10 Labs: Laboratory Results - last 24 hr 05/18/22 05/18/22 05/19/22 16:41 16:41 01:27 MCV MCH MCHC RDW Plt Count MPV Absolute Nucleated RBC Nucleated RBC % (auto) Anion Gap Estim Creat Clear Calc Estimated GFR Random Glucose Lactic Acid 1.3 Calcium Magnesium Urine Color Yellow Urine Appearance Cloudy Urine pH 5.5 Ur Specific [place] 1.025 Urine Protein Trace Urine Glucose (UA) Negative Urine Ketones Trace Urine Blood Small (1+) H Urine Nitrite Negative Ur Leukocyte Esterase Negative Urine RBC 3-5 H Urine WBC 0-5 Ur Squamous Epith Cells 0-2 Calcium Oxalate Crystal Present Urine Bacteria None Seen Hyaline Casts 0-2 Respiratory Panel Yang See Note Adenovirus (Rapid PCR) Not Detected B.pert (TEM-PCR) Not Detected B.parapertussis DNA PCR Not Detected C. pneumoniae DNA (PCR) Not Detected Coronavirus OC43 (PCR) Not Detected Coronavirus HKU1 (PCR) Not Detected Coronavirus 229E (PCR) Not Detected Coronavirus NL63 (PCR) Not Detected Human Metapneumovir PCR Not Detected Influenza A (RT-PCR) Not Detected Influenza B (RT-PCR) Not Detected M. pneumoniae (PCR) Not Detected Parainfluenza 1 (PCR) Not Detected Parainfluenza 2 (PCR) Not Detected Parainfluenza 3 (PCR) Not Detected Parainfluenza 4 (PCR) Not Detected RSV (PCR) Not Detected Entero/Rhino (PCR) Not Detected SARS-CoV-2 RNA (RT-PCR) Not Detected 05/19/22 05/19/22 05/19/22 06:10 06:10 06:10 MCV 100.0 H MCH 33.4 H MCHC 33.4 RDW 17.2 H Plt Count 181 MPV 9.8 Absolute Nucleated RBC 0.000 Nucleated RBC % (auto) 0.0 Anion Gap 16 Estim Creat Clear Calc 100.0 Estimated GFR > 60 Random Glucose 103 Lactic Acid Calcium 8.6 D Magnesium 1.8 Urine Color Urine Appearance Urine pH Ur Specific [place] Urine Protein Urine Glucose (UA) Urine Ketones Urine Blood Urine Nitrite Ur Leukocyte Esterase Urine RBC Urine WBC Ur Squamous Epith Cells Calcium Oxalate Crystal Urine Bacteria Hyaline Casts Respiratory Panel Yang Adenovirus (Rapid PCR) B.pert (TEM-PCR) B.parapertussis DNA PCR C. pneumoniae DNA (PCR) Coronavirus OC43 (PCR) Coronavirus HKU1 (PCR) Coronavirus 229E (PCR) Coronavirus NL63 (PCR) Human Metapneumovir PCR Influenza A (RT-PCR) Influenza B (RT-PCR) M. pneumoniae (PCR) Parainfluenza 1 (PCR) Parainfluenza 2 (PCR) Parainfluenza 3 (PCR) Parainfluenza 4 (PCR) RSV (PCR) Entero/Rhino (PCR) SARS-CoV-2 RNA (RT-PCR) Assessment and Plan (1) Pituitary lesion: Status: Acute Plan 71 year old man placed on observation for SIRS criteria with abormal electrolytes likely secondary to dehydration. New port placed to right chest one month ago for chemotherapy Sirs, unknown source. Fever, tachycardia, so far no source Due to patient's history of cancer, immunosuppressed, will continue antibiotics for now Blood cultures are pending Respiratory pathogen panel negative check stool studies Headache. Resolving Head CT with no acute intracranial abnormality, stable pituitary mass Fioricet p.r.n. If headache continues consult Neurology Hypokalemia/hypomagnesemia. resolved Likely secondary to hypovolemia Will replete Follow BMP Orthostatic hypotension. resolved Likely secondary to hypovolemia IV fluids Follow blood pressures closely Continue midodrine History of pulmonary embolism Continue Eliquis History of rectal carcinoma, renal carcinoma, pituitary lesion Followed by Oncology DVT prophylaxis with Eliquis Attending Dr. Quispe Full code Quality Stroke Does the patient have a stroke diagnosis?: No VTE Prior VTE?: No VTE Risk Level:: Medical - moderate - high VTE Device Contraindication: Treatment Not Indicated VTE Drug Contraindication: N/A - Med Ordered
[2022-05-19] MEDS: Metoprolol Tartrate 12.5 MG HALFTAB PO ×2 (13:11→21:01)
[2022-05-19] MEDS: Apixaban 5 MG TABLET PO ×2 (13:11→21:01)
[2022-05-20] VITALS: BP 136/80; PULSE 71; RESP 18; TEMP 37.2; O2SAT 97
[2022-05-20] MEDS: cefEPime HCl 1 GM in 0.9 % Sodium Chloride 50 ML IV ×2 (02:04→09:21)
[2022-05-20 04:00] VITALS: BP 133/82; PULSE 98; RESP 18; TEMP 37.2; O2SAT 97
[2022-05-20 06:57] VITALS: BP 125/74; PULSE 82; RESP 18; TEMP 37.2; O2SAT 96
[2022-05-20] MEDS: Ferrous Sulfate 324 MG TABLET.DR PO (08:13)
[2022-05-20] MEDS: Metoprolol Tartrate 12.5 MG HALFTAB PO (08:13)
[2022-05-20] MEDS: Ascorbic Acid 500 MG TABLET PO (08:13)
[2022-05-20] MEDS: Apixaban 5 MG TABLET PO (08:13)
[2022-05-20] MEDS: Butalb/Acetamin/Caff 50/325/40 TABLET 1 TAB PO (10:03)
[2022-05-20 10:59] VITALS: BP 124/68; PULSE 65; RESP 18; TEMP 36.6; O2SAT 98
[2022-05-20 12:37] VITALS: BMI 19.6
[2022-05-20] MEDS: 0.9 % Sodium Chloride Flush 3 ML SYRINGE IVFLUSH (15:16)
[2022-05-20 15:41] VITALS: BP 133/73; PULSE 81; RESP 18; TEMP 37.2; O2SAT 98
[2022-05-20 16:00] VITALS: BP 133/73; PULSE 95
--- NOTE | 2022-05-20 16:46 | PM.DS ---
DS: Providers Provider Date of Service: 05/20/22 Date of admission: 05/19/22 14:52 Primary care physician: Jose James [facility] DS: Diagnosis Discharge Diagnosis (1) Pituitary lesion: Status: Acute DS: Summary Hospital Course Hospital Course: Chief Complaint: Headache 71-year-old man presenting to the ER with severe left frontal headache with associated nausea and vomiting.? He denied any visual changes, syncope.? Apparently he got his flu shot yesterday and he is currently on chemotherapy.? He denied chest pain, shortness breath, difficulty with ambulation, recent illness, recent travel, sick contacts. His appetite has been poor.? He was noted to have multiple electrolyte abnormalities including potassium of 3.2, magnesium 1.5.? He did have a fever of 101.4 with 1 episode of tachycardia, no leukocytosis or leukopenia, chest x-ray negative consolidation or effusion, UA negative, negative COVID.? He was given a dose vancomycin and Zosyn as well as IV fluids and pain medications.? He will be placed on observation for headache. Hospital course 71 year old man placed on observation for SIRS criteria with abormal electrolytes likely secondary to dehydration. New port placed to right chest one month ago for chemotherapy Sirs, patient admitted with a Fever, tachycardia, no source of infection was found blood cultures came back negative urinalysis was benign patient had normal WBC initially treated with cefepime that has been discontinued patient had no recurrent fevers therefore being discharged home. Headache. Resolved,Head CT showed no acute intracranial abnormality, stable pituitary mass, patient also complained of bilateral blurred vision that improved recommend outpatient follow-up with ophthalmology if symptoms persist. Hypokalemia/hypomagnesemia. resolved, Likely secondary to hypovolemia Orthostatic hypotension. Noted to have elevated supine blood pressures therefore dose of midodrine reduced to 2.5 mg t.i.d. History of pulmonary embolism Continue Eliquis History of rectal carcinoma, renal carcinoma, pituitary lesion recommend to follow with Oncology as outpatient Time Spent with Patient Time attestation: Total time spent providing and/or coordinating discharge services: Discharge coordination time: Greater than 30 minutes Quality: Safe Use of Opioids Does Pt have an Active Cancer Diagnosis on the Problem List?: No Quality: Stroke Does the patient have a stroke diagnosis?: No Physical Exam Vital Signs: Vital Signs: Last Vital Signs Temp 99.0 F 05/20/22 15:41 Pulse 95 05/20/22 16:00 Resp 18 05/20/22 15:41 BP 133/73 05/20/22 16:00 Pulse Ox 98 05/20/22 15:41 O2 Del Method 05/20/22 15:41 BMI result Body Mass Index 19.6 Const: Other: General awake alert x3, no acute distress. Eyes dry scabs both eyelids , no conjunctival hyperemia, mildly swollen and droopy for left upper lid Neck supple no JVD. CVS regular rate rhythm, Respiratory lungs clear to auscultation, no respiratory distress, no wheeze, no rhonchi. Gastrointestinal abdomen soft, nontender, bowel sounds audible,no guarding , no rigidity. Extremities no edema. Neuro nonfocal patient moving all 4 extremity speech clear. Skin no rash DS: Data Data Completed and Pending Completed studies during hospitalization [Text1]: Procedures Bypass Sigmoid Colon to Cutaneous, Open Approach (09/02/21) Drainage of Right Kidney, Percutaneous Approach, Diagnostic (09/02/21) Excision of Bladder, Open Approach (09/02/21) Excision of Rectum, Open Approach (09/02/21) Excision of Right Kidney, Percutaneous Approach, Diagnostic (09/02/21) Excision of Sigmoid Colon, Open Approach (09/02/21) Excision of Sigmoid Colon, Via Natural or Artificial Opening Endoscopic, Diagnostic (09/02/21) Release Peritoneum, Open Approach (12/30/21) Removal of Drainage Device from Peritoneal Cavity, Open Approach (12/30/21) Repair Bladder, Open Approach (09/02/21) Labs on day of discharge: Preliminary micro results at discharge 05/18/22 11:05 Blood Culture - Preliminary Blood - Venous No growth after 48 hours. 05/18/22 11:05 Blood Culture - Preliminary Blood - Venous No growth after 48 hours. Discharge Plan Discharge Anticipated Discharge Date/Time: 05/20/22 16:43 Patient Disposition: Home, Self-Care Discharge Diagnosis: sirs headache hypokalemia hypomagnesemia Referrals: Jose James, [facility] [Primary Care Provider] - 1 Week Discharge Medications: New oxycodone 5 mg capsule 5 mg PO Q8H PRN (Reason: pain) Qty: 5 0RF Rx Instructions: Partial Fill upon patient request. Continued capecitabine 500 mg tablet 1,500 mg PO BID PRN (Reason: 14 DAYS OF EACH CHEMO CYCLE) Rx Instructions: for 14 days per 21-day cycle; must administer with water 30 minutes after a meal loperamide 2 mg Capsule 2 mg PO Q4H PRN (Reason: Diarrhea) Rx Instructions: administer after each loose stool until symptoms controlled; do not exceed 8 mg per 24 hrs apixaban 5 mg Tablet 5 mg PO BID Qty: 60 3RF metoprolol tartrate 25 mg tablet 12.5 mg PO BID Qty: 30 0RF ascorbate calcium (vitamin C) 500 mg tablet 500 mg PO DAILY ferrous sulfate 325 mg (65 mg iron) tablet 325 mg PO DAILY dexamethasone 4 mg tablet 4 mg PO BID PRN (Reason: DAY 2&3 OF CHEMO CYCLE) Rx Instructions: Take BID on days 2 and 3 after chemo Changed midodrine 5 mg Tablet 2.5 mg PO TID Qty: 90 0RF Discharge Orders: Discharge Order (Routine); Ordered 05/20/22 Ordered By: Tray Canales Diet: Advance to usual diet Activity on Discharge: As tolerated Stand Alone Forms: Patient Portal Discharge page Care Plan Goals: Fever resolved, likely viral take Tylenol as needed Noted to have supine high blood pressure with history of orthostatic hypotension dose of midodrine reduced to 2.5 mg t.i.d. Headache resolved, double vision improved Recommend to wipe both eyes with cotton balls and lukewarm water every few hours as needed Health Concerns: Rectal CA follow-up with Oncology, orthostatic hypotension continue midodrine as recommended Plan of Treatment: Outpatient follow-up with primary care physician and Oncology as previously planned Assessment: as tolerated Patient Instructions: General Headache (ED) Discharge Date/Time: 05/20/22 18:00
== END 2022-05-20 18:00 | disposition home or self-care (01) | DRG 641 ==
LOC: HO.ED 16:44 → HO.EDOVER 17:22 → HO.S3 05-19 08:40
PROVIDERS: Emergency Medicine; Admitting Provider Nurse Practitioner Acute Care; Emergency Provider Student in an Organized Health Care Education/Training Program; PCP Nurse Practitioner Family; Visit Provider Hospitalist
DX: E86.0 Dehydration (principal); C19 Malignant neoplasm of rectosigmoid junction; C79.00 Secondary malignant neoplasm of unspecified kidney and renal pelvis; R65.10 Systemic inflammatory response syndrome (SIRS) of non-infectious origin without acute organ dysfunction; I95.1 Orthostatic hypotension; E23.7 Disorder of pituitary gland, unspecified; E87.6 Hypokalemia; E83.42 Hypomagnesemia; R51.9 Headache, unspecified; Z20.822 Contact with and (suspected) exposure to COVID-19; Z93.3 Colostomy status; Z86.711 Personal history of pulmonary embolism; Z87.891 Personal history of nicotine dependence; Z79.01 Long term (current) use of anticoagulants; Z79.899 Other long term (current) drug therapy
CPT/HCPCS: 36415; 70450; 71045; 80048; 80053; 81001; 83605; 83735; 84484; 85025; 85027; 85610; 87040; 87633; 87635; 93005; 99285; J0692; J2405; J2543; J3370; J3475

== ENCOUNTER 2022-05-27 11:17 | Emergency (ER) | payer OTHER, SELFPAY ==
--- NOTE | ~2022-05-27 | MR_ITS ---
EXAMINATION: MR BRAIN WITHOUT AND WITH CONTRAST CLINICAL INFORMATION: Double vision. COMPARISON: CT head 05/18/2022. Brain MRI 03/05/2022, 11/11/2021. TECHNIQUE: Multiplanar MR imaging of the brain was performed without and with contrast. A total of 3 mL Gadavist was utilized for this examination. FINDINGS: Enhancement characteristics associated with a large intrasellar mass are now more heterogeneous with some fluid filled components near the superior aspect which may represent intralesional cystic hemorrhage or cystic degeneration. The overall height of the pituitary tissue has slightly increased when compared from prior imaging now measuring 1.9 cm in maximal height which represents an increase from 1.8 cm measured on prior imaging from 03/05/2022. The superior surface of the lesion bulges further into the suprasellar compartment causing abutment along the undersurface of the optic chiasm and the prechiasmatic segment of the left optic nerve. Rightward deviation of the pituitary stalk. Cavernous sinuses enhance symmetrically. Cavernous internal carotid artery flow voids are maintained. Postcontrast images of the whole brain reveal no abnormal mass or enhancement elsewhere within the intracranial compartment. No hydrocephalus. The cervicomedullary junction is normal. No acute bone marrow signal changes. No acute territorial infarct. Intracranial vascular flow voids are grossly maintained. No mastoid or middle ear effusion. Mild to moderate paranasal sinus disease primarily affecting the ethmoid air cells. Globes and orbits are symmetric. MR/MR head/brain wo/w con IMPRESSION: When compared to the prior brain MRI from 03/05/2022 there has been some intralesional cystic degeneration or intralesional hemorrhage at the superior aspect of the pituitary mass. The overall height of the pituitary tissue has slightly increased when compared to prior imaging and it now causes abutment along the undersurface of the optic chiasm and prechiasmatic segment of the left optic nerve.
[2022-05-27 11:22] VITALS: BP 77/45; PULSE 84; RESP 18; TEMP 36.2; O2SAT 100; BMI 16.2
[2022-05-27 11:53] LABS: MANUAL DIFF FLAG NO
[2022-05-27 11:55] LABS: Basophils Percent Auto 0.6 % (0-2); Eosinophils Absolute Auto 0.2 X10*3/uL (0.0-0.4); Eosinophils Percent Auto 5.4 % (0-4); Hematocrit 34.4 % (42.0-52.0); Hemoglobin 11.3 g/dl (14.0-18.0); Imm Gran Abs Auto 0.01 X10*3/uL (0.00-0.03); Imm Gran Pct Auto 0.3 % (0.0-0.4); Lymphocytes Absolute Auto 1.6 X10*3/uL (1.2-4.9); Lymphocytes Percent Auto 44.8 % (20-40); Mean Corpuscular HGB Conc 32.8 g/dl (31.0-36.0); Mean Corpuscular Hemoglobin 32.9 pg (27.0-33.0); Mean Corpuscular Volume 100.3 fL (80.0-98.0); Mean Platelet Volume 9.8 fL (9.4-12.4); Monocytes Absolute Auto 0.4 X10*3/uL (0.1-1.2); Monocytes Percent Auto 9.9 % (2-11); Neutrophils Absolute Auto 1.4 x10*3/uL (2.0-8.3); Platelet Count 210 X10*3/uL (160-400); Red Blood Count 3.43 X10*6/uL (4.60-5.80); Red Cell Distribution Width 16.5 % (11.0-16.0); White Blood Count 3.5 X10*3/uL (4.8-10.8)
[2022-05-27 12:01] LABS: INTERNATIONAL NORM RATIO 1.4 (0.9-1.1); Prothrombin Time 16.5 SEC (10.0-13.1)
--- NOTE | 2022-05-27 12:04 | ED.NEUROSD ---
HPI - Neuro Symptoms/Deficit General Chief Complaint: Recheck/Abnormal Lab/Rx Stated Complaint: double vision Time Seen by Provider: 05/27/22 11:27 Source: patient Mode of arrival: ambulatory History of Present Illness HPI Narrative: 71-year-old male with history of colon CA, renal CA and a known pituitary mass who has been following up with Oncology who reports that patient had new onset of double vision this morning. On speaking with the patient he states that his headaches have significantly improved but he is still quite unsteady on his feet and reports he woke up this morning and was ?seeing double?. He denies any eye pain with her without movement and states that when he covers 1 eye he is able to see at his usual acuity. Related Data Home Medications Medication Instructions Recorded Confirmed ascorbate calcium (vitamin C) 500 500 mg PO DAILY 10/09/21 05/27/22 mg tablet ferrous sulfate 325 mg (65 mg 325 mg PO DAILY 10/09/21 05/27/22 iron) tablet capecitabine 500 mg tablet 1,500 mg PO BID PRN 14 DAYS OF 01/29/22 05/27/22 EACH CHEMO CYCLE dexamethasone 4 mg tablet 4 mg PO BID PRN DAY 2&3 OF CHEMO 01/29/22 05/27/22 CYCLE loperamide 2 mg capsule 2 mg PO Q4H PRN Diarrhea 04/08/22 05/27/22 Previous Rx's Medication Instructions Recorded metoprolol tartrate 25 mg tablet 12.5 mg PO BID #30 tabs 01/09/22 oxycodone 5 mg capsule 5 mg PO Q8H PRN pain #5 caps 05/18/22 midodrine 5 mg tablet 2.5 mg PO TID #90 tabs 05/20/22 dexamethasone 4 mg tablet 4 mg PO Q6H 7 days #28 tabs 05/27/22 Allergies Allergy/AdvReac Type Severity Reaction Status Date / Time No Known Allergies Allergy Verified 05/18/22 01:18 Review of Systems Review of Systems: Pertinent positives and negatives as stated in HPI 10 point review of systems is otherwise negative PMFSH Past Medical History Source: nursing notes reviewed Medical History [place]-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 HTN (hypertension) Mass of pituitary Rectosigmoid cancer Renal cell carcinoma Surgical History H/O hernia repair S/P colon resection Family History Family History Mother Parkinsons disease Father ESRD (end stage renal disease) Other No family history of cancer Social History Social History Household Members: Family Housing: House Are you a primary behavioral health care manager to a significant other at home: No Do you presently have visiting nurse or other home services: No Alcohol intake: former Patient Tobacco Use Status: Former Tobacco user Quit Date: 30 y.o Years Smoked: quit 1989 e-Cigarette/Vaping Use: Never Used Second Hand Smoke Exposure: No Advance Directives: No service: Yes ( ) Current occupational status: employed and retired Cognitive needs: No Hearing needs: No Vision needs: No Physical Exam Vital Signs: Vital Signs: Last Vital Signs Temp 97.2 F 05/27/22 11: Pulse 69 05/27/22 13:52 Resp 16 05/27/22 13:52 BP 148/52 H 05/27/22 13:52 Pulse Ox 95 05/27/22 13:52 O2 Del Method 05/27/22 13:52 BMI result Body Mass Index 16.2 VITAL SIGNS: Reviewed. GENERAL: Cachectic, chronically ill, in no acute distress. HEAD: Normocephalic/atraumatic, temporal wasting EYES: PERRLA, EOMI, left eye appears to be slightly extropic, no nystagmus, no gaze palsies noted EARS: Ext canals without abnormality OROPHARYNX: no oral lesions noted, posterior pharynx clear LUNGS: Normal breath sounds. No adventitious sounds or accessory muscle use. SpO2<> CARDIOVASCULAR: Regular rate and rhythm without noted murmurs, no JVD or lower extremity edema. ABDOMEN: Soft, non-tender, non-distended with bowel sounds. MUSCULOSKELETAL: No tenderness, deformities, or effusions noted on gross inspection. EXTREMITIES: No cyanosis, clubbing or edema. SKIN: Inspection of the skin reveals no rashes, ulcerations, jaundice, pallor, or petechiae. NEUROLOGIC: Alert and oriented x 4. Strength and sensation to light touch were grossly intact x 4, no tremor, no facial asymmetry, when asked to cover 1 eye and read the television the patient does not experience double vision and is able to read the words on the screen, but with both eyes he experiences double vision. Course Course Course Narrative: 71-year-old male with history and clinical presentation suspicious for expansion of known pituitary mass. On arrival he is alert and oriented, blood pressure is stable and will proceed with MRI as well as acquiring basic labs. 1515: I discussed MRI results with the and patient, and provided expectant instructions regarding double vision and depth perception. would really like palliative services because she has to return to work and is very worried. Reevaluation(s) Reevaluation #1: I spoke with Dr Cisneros who will d/w Dr Bruce at [facility] and recommends starting the patient on Dexamethasone 4mg BID, and d/c home. Time: 15:07 Reevaluation #2: Dr Cisneros called back and informed me that patient wll be seen at [facility] tomorrow with Dr Bruce. Also, recommendations for Dexamethasone 4mg, 4x/day. Dr Cisneros says she will get palliative services started for the patient. Time: 15:29 MDM - Neuro Symptoms/Deficit Lab Data Result diagrams: 05/27/22 11:49 05/27/22 11:49 Labs: Lab Results 05/27/22 05/27/22 05/27/22 Range/Units 11:49 11:49 11:49 WBC 3.5 L (4.8-10.8) X10*3/uL RBC 3.43 L (4.60-5.80) X10*6/uL Hgb 11.3 L (14.0-18.0) g/dl Hct 34.4 L (42.0-52.0) % MCV 100.3 H (80.0-98.0) fL MCH 32.9 (27.0-33.0) pg MCHC 32.8 (31.0-36.0) g/dl RDW 16.5 H (11.0-16.0) % Plt Count 210 (160-400) X10*3/uL MPV 9.8 (9.4-12.4) fL Immature Gran % (Auto) 0.3 (0.0-0.4) % Neut % (Auto) 39.0 L (45-73) % Lymph % (Auto) 44.8 H (20-40) % [place] % (Auto) 9.9 (2-11) % Eos % (Auto) 5.4 H (0-4) % Baso % (Auto) 0.6 (0-2) % Lymph # (Auto) 1.6 (1.2-4.9) X10*3/uL [place] # (Auto) 0.4 (0.1-1.2) X10*3/uL Eos # (Auto) 0.2 (0.0-0.4) X10*3/uL Baso # (Auto) 0.0 (0.0-0.2) X10*3/uL Abs Immat Gran (auto) 0.01 (0.00-0.03) X10*3/uL Absolute Neuts (auto) 1.4 L (2.0-8.3) x10*3/uL Absolute Nucleated RBC 0.000 (0.0-0.012) X10*3/uL Nucleated RBC % (auto) 0.0 (0.0-0.2) /100WBC PT 16.5 H (10.0-13.1) SEC INR 1.4 H (0.9-1.1) Sodium 129 L (135-145) mmol/L Potassium 3.3 D (3.3-5.1) mmol/L Chloride 93 L (96-108) mmol/L Carbon Dioxide 24 (22-29) mmol/L Anion Gap 15 (12-20) BUN 6 L (9-16) mg/dL Creatinine 0.63 (0.5-1.4) mg/dL Estim Creat Clear Calc 87.6 Estimated GFR > 60 Random Glucose 127 H (60-115) mg/dL Calcium 8.5 (8.4-10.2) mg/dL Total Bilirubin 0.3 (0.0-1.0) mg/dL AST 64 H (5-37) U/L ALT 36 (0-40) U/L Alkaline Phosphatase 114 D (39-117) U/L Total Protein 5.4 L (6.5-8.0) g/dL Albumin 3.2 L (3.5-5.0) g/dL Critical Care Time Critical Care Time Critical Care Time: Yes Total Critical Care Time: 30 Attestation: I personally attest to this time spent taking care of the patient. Discharge Plan Discharge Clinical Impression: Diplopia, Pituitary mass Patient Disposition: Home, Self-Care Instructions: Diplopia (ED) Additional Instructions: STOP THE ELIQUIS. You will be started on Dexamethasone 4x/day. Gracia Freeman will be calling tomorrow. Dr Cisneros will start palliative services. Return to the ER for worsening symptoms. Prescriptions: New dexamethasone 4 mg tablet 4 mg PO Q6H 7 Days Qty: 28 0RF Discontinued apixaban 5 mg Tablet 5 mg PO BID Qty: 60 3RF No Action capecitabine 500 mg tablet 1,500 mg PO BID PRN (Reason: 14 DAYS OF EACH CHEMO CYCLE) Rx Instructions: for 14 days per 21-day cycle; must administer with water 30 minutes after a meal loperamide 2 mg Capsule 2 mg PO Q4H PRN (Reason: Diarrhea) Rx Instructions: administer after each loose stool until symptoms controlled; do not exceed 8 mg per 24 hrs metoprolol tartrate 25 mg tablet 12.5 mg PO BID Qty: 30 0RF oxycodone 5 mg capsule 5 mg PO Q8H PRN (Reason: pain) Qty: 5 0RF Rx Instructions: Partial Fill upon patient request. midodrine 5 mg Tablet 2.5 mg PO TID Qty: 90 0RF ascorbate calcium (vitamin C) 500 mg tablet 500 mg PO DAILY ferrous sulfate 325 mg (65 mg iron) tablet 325 mg PO DAILY dexamethasone 4 mg tablet 4 mg PO BID PRN (Reason: DAY 2&3 OF CHEMO CYCLE) Rx Instructions: Take BID on days 2 and 3 after chemo Referrals: Jose James FNP- [Primary Care Provider] - Phoebe Cisneros MD [Physician] - Jose Bruce MD [Physician] -
[2022-05-27 12:09] LABS: Alanine Aminotransferase 36 U/L (0-40); Albumin Level 3.2 g/dL (3.5-5.0); Alkaline Phosphatase 114 U/L (39-117); Anion Gap 15 (12-20); Aspartate Amino Transferase 64 U/L (5-37); Bilirubin Total 0.3 mg/dL (0.0-1.0); Blood Urea Nitrogen 6 mg/dL (9-16); Calcium 8.5 mg/dL (8.4-10.2); Carbon Dioxide 24 mmol/L (22-29); Chloride 93 mmol/L (96-108); Creatinine Clr Calc Pharmacy 87.6; Estimated Glomerular Filt Rate > 60; Glucose Random 127 mg/dL (60-115); Potassium 3.3 mmol/L (3.3-5.1); Sodium 129 mmol/L (135-145); Total Protein 5.4 g/dL (6.5-8.0)
[2022-05-27] MEDS: 0.9 % Sodium Chloride 1,000 ML 999 ML IV (12:09)
[2022-05-27 13:52] VITALS: BP 148/52; PULSE 69; RESP 16; O2SAT 95
--- NOTE | 2022-05-27 14:17 | PC.NURSE ---
RETURNED FORM MRI PLACED BACK ON MONITOR WAITING FOR RESULTS
[2022-05-27] MEDS: dexAMETHasone 4 MG TABLET PO (18:13)
== END 2022-05-27 19:40 | disposition home or self-care (01) ==
PROVIDERS: Emergency Provider Student in an Organized Health Care Education/Training Program; PCP Nurse Practitioner Family
DX: H53.2 Diplopia (principal); R79.89 Other specified abnormal findings of blood chemistry; E23.6 Other disorders of pituitary gland; R51.9 Headache, unspecified; Z87.891 Personal history of nicotine dependence; Z79.899 Other long term (current) drug therapy
CPT/HCPCS: 36415; 70553; 80053; 85025; 85610; 96361; 96374; 99284; 99285; A9585; J1642; J8540

== ENCOUNTER 2022-07-08 16:27 | Inpatient (IN) | payer OTHER, SELFPAY ==
--- NOTE | ~2022-07-08 | IR_ITS ---
EXAMINATION: RIGHT CHEST PORT CATHETER REMOVAL CLINICAL INFORMATION: Infected port. COMPARISON: 04/21/2022. TECHNIQUE: Right chest port removal. FINDINGS: Informed consent was obtained from the patient prior to the procedure. During this process, the procedure and potential alternatives were explained, along with the intended outcome and benefits. The risks of the procedure, as well as the risk of not doing the procedure, were discussed. The patient was given the opportunity to ask questions regarding the procedure and appeared competent to make medical decisions. A signed consent form which documents this discussion was placed in the medical record. Conscious sedation was performed with a trained medical provider monitoring the patient's vital signs under their supervision with 30 minutes face to face sedation time. All elements of maximal sterile barrier technique followed including use of cap, mask, sterile gown, sterile gloves, a sterile full body drape and hand hygiene. Also followed skin preparation with 2% chlorhexidine for cutaneous antisepsis, and sterile ultrasound preparation with sterile gel and probe cover when applicable. It is noted that there has been dehiscence of the port pocket along previous insertion site with the port being open to air. The port and attached catheter were removed in their entirety and sent for culture. The port pocket was flushed with sterile saline. The port pocket was then packed with iodoform packing and covered with sterile gauze. Packing change is planned to be daily. Patient tolerated procedure without difficulty. IR/IR cvc remove tunnel w prt/protective signal installer IMPRESSION: Removal of right chest port with packing of port pocket as described.
[2022-07-08 16:32] VITALS: BP 158/63; PULSE 66; RESP 16; TEMP 37.1; O2SAT 100
--- NOTE | 2022-07-08 16:53 | ED_ITS ---
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 Related Data Home Medications Medication Instructions Recorded Confirmed ascorbate calcium (vitamin C) 500 500 mg PO DAILY 10/09/21 07/08/22 mg tablet ferrous sulfate 325 mg (65 mg 325 mg PO DAILY 10/09/21 07/08/22 iron) tablet loperamide 2 mg capsule 2 mg PO Q4H PRN Diarrhea 04/08/22 07/08/22 apixaban 5 mg tablet (Eliquis) 5 mg PO BID 06/08/22 07/08/22 dexamethasone 4 mg tablet 4 mg PO BID 07/08/22 07/08/22 midodrine 5 mg tablet 5 mg PO TIDWM 07/08/22 07/08/22 Previous Rx's Medication Instructions Recorded metoprolol tartrate 25 mg tablet 12.5 mg PO BID #30 tabs 01/09/22 Allergies Allergy/AdvReac Type Severity Reaction Status Date / Time No Known Allergies Allergy Verified 06/16/22 11:01 Review of Systems Review of Systems: Yes all other systems are reviewed and are negative REPLACED BY [facility] Past Medical History Medical History [place]-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 Fever of unknown origin Headache HTN (hypertension) 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 Renal cell carcinoma Surgical History H/O hernia repair S/P colon resection Family History Family History Mother Parkinsons disease Father ESRD (end stage renal disease) Other No family history of cancer Social History Social History Household Members: Family Housing: House Are you a primary lpn care manager to a significant other at home: No Do you presently have visiting nurse or other home services: No Alcohol intake: never Patient Tobacco Use Status: Former Tobacco user Quit Date: 30 y.o Years Smoked: quit 1989 Smoked in Last 30 Days: No e-Cigarette/Vaping Use: Never Used Second Hand Smoke Exposure: No Use of substances other than those prescribed or required for medical reasons: No Advance Directives: No Advance Directives Information Provided: No service: Yes ( ) Current occupational status: employed and retired Cognitive needs: No Hearing needs: No Vision needs: No Physical Exam ED Vital Signs: Vital Signs - 24 hr 07/08/22 16:32 07/08/22 16:59 07/08/22 19:12 Temperature 98.8 F 98.8 F 100.1 F Pulse Rate 66 66 80 Respiratory Rate 16 18 18 Blood Pressure 158/63 H 158/63 H 145/64 H Pulse Oximetry 100 98 99 Oxygen Delivery Method Room Air Room Air Room Air 07/08/22 22:32 Temperature 98.3 F Pulse Rate 96 Respiratory Rate 17 Blood Pressure 150/69 H Pulse Oximetry 97 Oxygen Delivery Method Room Air BMI result Body Mass Index 17.7 Appearance: Alert. Oriented X3. No acute distress. Eyes: PERRLA, No Nystagmus ENT: Pharynx normal. Oral Mucosa moist Neck: Normal inspection. Neck supple. CVS: Normal heart rate and rhythm. Pulses normal. Respiratory: No respiratory distress. Equal air entry bilateral, no wheezing/rales/rhonchi Abdomen: Soft and nontender. Bowel sounds are present, Skin: Skin warm and dry. Cellulitic changes and a site of port on the right side Extremities: No lower extremity edema. No calf tenderness Neuro: Oriented X 3. Medications Administered Discontinued Medications Generic Name Dose Route Start Last Admin Trade Name Freq PRN Reason Stop Dose Admin Vancomycin HCl 1,000 mg/ 270 mls @ 270 mls/hr 07/08/22 16:54 07/08/22 19:30 Sodium Chloride IV 07/08/22 17:53 Infused ONCE ONE Infusion Cefepime HCl 2 gm/ Sodium 50 mls @ 100 mls/hr 07/08/22 16:54 07/08/22 18:50 Chloride IV 07/08/22 17:23 Infused ONCE ONE Infusion Medical Decision Making Medical Decision Making [facility] Narrative: Patient with infected Port-A-Cath catheter admit for IR to remove the catheter in the morning IV antibiotics Lab Data [facility] Lab Attestation statement: I reviewed the patient's lab results. Result Diagrams: 07/08/22 17:59 07/08/22 17:59 Labs: Lab Results 07/08/22 07/08/22 07/08/22 Range/Units 17:59 17:59 17:59 WBC 4.6 L (4.8-10.8) X10*3/uL RBC 3.48 L (4.60-5.80) X10*6/uL Hgb 11.4 L (14.0-18.0) g/dl Hct 34.6 L (42.0-52.0) % MCV 99.4 H (80.0-98.0) fL MCH 32.8 (27.0-33.0) pg MCHC 32.9 (31.0-36.0) g/dl RDW 14.6 (11.0-16.0) % Plt Count 258 (160-400) X10*3/uL MPV 9.0 L (9.4-12.4) fL Immature Gran % (Auto) 0.4 (0.0-0.4) % Neut % (Auto) 68.5 (45-73) % Lymph % (Auto) 21.4 (20-40) % [place] % (Auto) 8.3 (2-11) % Eos % (Auto) 0.7 (0-4) % Baso % (Auto) 0.7 (0-2) % Lymph # (Auto) 1.0 L (1.2-4.9) X10*3/uL [place] # (Auto) 0.4 (0.1-1.2) X10*3/uL Eos # (Auto) 0.0 (0.0-0.4) X10*3/uL Baso # (Auto) 0.0 (0.0-0.2) X10*3/uL Abs Immat Gran (auto) 0.02 (0.00-0.03) X10*3/uL Absolute Neuts (auto) 3.1 (2.0-8.3) x10*3/uL Absolute Nucleated RBC 0.000 (0.0-0.012) X10*3/uL Nucleated RBC % (auto) 0.0 (0.0-0.2) /100WBC Sodium 128 L (135-145) mmol/L Potassium 3.9 (3.3-5.1) mmol/L Chloride 93 L (96-108) mmol/L Carbon Dioxide 27 (22-29) mmol/L Anion Gap 12 (12-20) BUN 6 L (9-16) mg/dL Creatinine 0.63 (0.5-1.4) mg/dL Estim Creat Clear Calc 95.2 Estimated GFR > 60 Random Glucose 78 (60-115) mg/dL Lactic Acid 2.0 (0.5-2.0) mmol/L Calcium 8.1 L (8.4-10.2) mg/dL Total Bilirubin 0.5 (0.0-1.0) mg/dL AST 25 (5-37) U/L ALT 16 (0-40) U/L Alkaline Phosphatase 117 (39-117) U/L Total Protein 5.5 L (6.5-8.0) g/dL Albumin 3.1 L (3.5-5.0) g/dL COVID-19 (JAS) (Negative) COVID-19 Clin Com 07/08/22 Range/Units 18:00 WBC (4.8-10.8) X10*3/uL RBC (4.60-5.80) X10*6/uL Hgb (14.0-18.0) g/dl Hct (42.0-52.0) % MCV (80.0-98.0) fL MCH (27.0-33.0) pg MCHC (31.0-36.0) g/dl RDW (11.0-16.0) % Plt Count (160-400) X10*3/uL MPV (9.4-12.4) fL Immature Gran % (Auto) (0.0-0.4) % Neut % (Auto) (45-73) % Lymph % (Auto) (20-40) % [place] % (Auto) (2-11) % Eos % (Auto) (0-4) % Baso % (Auto) (0-2) % Lymph # (Auto) (1.2-4.9) X10*3/uL [place] # (Auto) (0.1-1.2) X10*3/uL Eos # (Auto) (0.0-0.4) X10*3/uL Baso # (Auto) (0.0-0.2) X10*3/uL Abs Immat Gran (auto) (0.00-0.03) X10*3/uL Absolute Neuts (auto) (2.0-8.3) x10*3/uL Absolute Nucleated RBC (0.0-0.012) X10*3/uL Nucleated RBC % (auto) (0.0-0.2) /100WBC Sodium (135-145) mmol/L Potassium (3.3-5.1) mmol/L Chloride (96-108) mmol/L Carbon Dioxide (22-29) mmol/L Anion Gap (12-20) BUN (9-16) mg/dL Creatinine (0.5-1.4) mg/dL Estim Creat Clear Calc Estimated GFR Random Glucose (60-115) mg/dL Lactic Acid (0.5-2.0) mmol/L Calcium (8.4-10.2) mg/dL Total Bilirubin (0.0-1.0) mg/dL AST (5-37) U/L ALT (0-40) U/L Alkaline Phosphatase (39-117) U/L Total Protein (6.5-8.0) g/dL Albumin (3.5-5.0) g/dL COVID-19 ([facility]AS) Negative (Negative) COVID-19 Clin Com See Note Discharge Plan Discharge Clinical Impression: Infected venous access port Patient Disposition: Admitted As Inpatient
[2022-07-08 16:59] VITALS: BP 158/63; PULSE 66; RESP 18; TEMP 37.1; O2SAT 98; BMI 17.7
[2022-07-08 18:04] LABS: MANUAL DIFF FLAG NO
[2022-07-08 18:05] LABS: Basophils Percent Auto 0.7 % (0-2); Eosinophils Percent Auto 0.7 % (0-4); Hematocrit 34.6 % (42.0-52.0); Hemoglobin 11.4 g/dl (14.0-18.0); Imm Gran Abs Auto 0.02 X10*3/uL (0.00-0.03); Imm Gran Pct Auto 0.4 % (0.0-0.4); Lymphocytes Percent Auto 21.4 % (20-40); Mean Corpuscular HGB Conc 32.9 g/dl (31.0-36.0); Mean Corpuscular Hemoglobin 32.8 pg (27.0-33.0); Mean Corpuscular Volume 99.4 fL (80.0-98.0); Monocytes Absolute Auto 0.4 X10*3/uL (0.1-1.2); Monocytes Percent Auto 8.3 % (2-11); Neutrophils Absolute Auto 3.1 x10*3/uL (2.0-8.3); Neutrophils Percent Auto 68.5 % (45-73); Platelet Count 258 X10*3/uL (160-400); Red Blood Count 3.48 X10*6/uL (4.60-5.80); Red Cell Distribution Width 14.6 % (11.0-16.0); White Blood Count 4.6 X10*3/uL (4.8-10.8)
[2022-07-08] MEDS: cefEPime HCl 2 GM in 0.9 % Sodium Chloride 50 ML IV (18:17)
[2022-07-08 18:19] LABS: COVID-19 Test Negative (Negative)
--- NOTE | 2022-07-08 18:28 | PHA.MEDREC ---
Pharmacy Consult ? Medication Reconciliation Pharmacy has completed the medication reconciliation.
[2022-07-08] MEDS: vancomycin HCL 1,000 MG in 0.9 % Sodium Chloride 250 ML 270 MG IV (18:31)
[2022-07-08 18:41] LABS: Alanine Aminotransferase 16 U/L (0-40); Albumin Level 3.1 g/dL (3.5-5.0); Alkaline Phosphatase 117 U/L (39-117); Anion Gap 12 (12-20); Aspartate Amino Transferase 25 U/L (5-37); Bilirubin Total 0.5 mg/dL (0.0-1.0); Blood Urea Nitrogen 6 mg/dL (9-16); Calcium 8.1 mg/dL (8.4-10.2); Carbon Dioxide 27 mmol/L (22-29); Chloride 93 mmol/L (96-108); Creatinine Clr Calc Pharmacy 95.2; Estimated Glomerular Filt Rate > 60; Glucose Random 78 mg/dL (60-115); Potassium 3.9 mmol/L (3.3-5.1); Sodium 128 mmol/L (135-145); Total Protein 5.5 g/dL (6.5-8.0)
[2022-07-08 19:12] VITALS: BP 145/64; PULSE 80; RESP 18; TEMP 37.8; O2SAT 99
[2022-07-08 22:32] VITALS: BP 150/69; PULSE 96; RESP 17; TEMP 36.8; O2SAT 97
[2022-07-09] VITALS (10 sets, daily range): BP systolic 133–189; BP diastolic 67–86; PULSE 73–85; RESP 14–18; TEMP 36.9–37.9; O2SAT 93–100; BMI 17.4
--- NOTE | 2022-07-09 00:15 | PM.IMHP ---
History of Present Illness Date of Service: 07/09/22 Chief Complaint: Infected port this is a 71-year-old male with past medical history of colon cancer status post colon resection, currently being managed by Oncology, HTN, presents the hospital for evaluation of infected port. Patient has a Port-A-Cath in the right chest, has been red, slightly painful, and warm for the past 1 week. Patient denies any chills or fever. He went to see his oncologist today and was sent to the ED for further evaluation and likely removal of the port. Patient denies having any chest pain, no abdominal pain, no nausea or vomiting, no diarrhea constipation, no urinary symptoms and no lower extremity edema Last time the port was use was about 2 months ago On arrival to the ED patient hemodynamically stable with no significant abnormal vitals Labs are significant for WBC count of 4.6, hemoglobin of 11.4, hematocrit of 34.6, sodium of 129, with a baseline of 139, no other significant abnormality Review of Systems Review of Systems: Yes all other systems are reviewed and are negative [facility] Medical History [place]-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 Fever of unknown origin Headache HTN (hypertension) 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 Renal cell carcinoma Family History Mother Parkinsons disease Father ESRD (end stage renal disease) Other No family history of cancer Surgical History H/O hernia repair S/P colon resection Social History Household Members: Family Housing: House Are you a primary complex care nurse practitioner to a significant other at home: No Do you presently have visiting nurse or other home services: No Alcohol intake: never Patient Tobacco Use Status: Former Tobacco user Quit Date: 30 y.o Years Smoked: quit 1990 Smoked in Last 30 Days: No e-Cigarette/Vaping Use: Never Used Second Hand Smoke Exposure: No Use of substances other than those prescribed or required for medical reasons: No Advance Directives: No Advance Directives Information Provided: No service: Yes (1969- ) Current occupational status: employed and retired Cognitive needs: No Hearing needs: No Vision needs: No Meds Allergies Allergy/AdvReac Type Severity Reaction Status Date / Time No Known Allergies Allergy Verified 06/16/22 11:01 Home Medications Medication Instructions Recorded Confirmed Last Taken Type ascorbate calcium (vitamin C) 500 500 mg PO DAILY 10/09/21 07/08/22 07/08/22 History mg tablet ferrous sulfate 325 mg (65 mg 325 mg PO DAILY 10/09/21 07/08/22 07/08/22 History iron) tablet loperamide 2 mg capsule 2 mg PO Q4H PRN Diarrhea 04/08/22 07/08/22 Unknown History apixaban 5 mg tablet (Eliquis) 5 mg PO BID 06/08/22 07/08/22 07/08/22 History dexamethasone 4 mg tablet 4 mg PO BID 07/08/22 07/08/22 07/08/22 History midodrine 5 mg tablet 5 mg PO TIDWM 07/08/22 07/08/22 07/08/22 History Physical Exam Vital Signs and Narrative: Vital Signs: Last Vital Signs Temp 98.3 F 07/08/22 22:32 Pulse 96 07/08/22 22:32 Resp 17 07/08/22 22:32 BP 150/69 H 07/08/22 22:32 Pulse Ox 97 07/08/22 22:32 O2 Del Method 07/08/22 22:32 BMI result Body Mass Index 17.7 Const: General: cooperative and no acute distress Orientation/consciousness: patient oriented x3 Eyes: General: appearance normal, both eyes and all related structures Resp: Effort & Inspection: normal respiratory effort Auscultation: clear to auscultation bilaterally Cardio: Rate: regular rate Rhythm: regular rhythm GI: Palpation (GI): Soft to palpation Auscultation: normal bowel sounds Skin: Other: Patient has a port in the right subclavian, diarrhea is erythematous, warm, tender to touch with tracking of erythema up the neck General skin exam: no rashes or lesions noted Neuro: General: patient oriented x3 Cognition (Neuro): normal cognition Extrem: General: Yes normal to inspection and Yes no pedal edema Results Labs CBC and Chem 7: 07/08/22 17:59 07/08/22 17:59 Labs: Laboratory Results - last 24 hr 07/08/22 07/08/22 07/08/22 17:59 17:59 17:59 MCV 99.4 H MCH 32.8 MCHC 32.9 RDW 14.6 Plt Count 258 MPV 9.0 L Immature Gran % (Auto) 0.4 Neut % (Auto) 68.5 Lymph % (Auto) 21.4 [place] % (Auto) 8.3 Eos % (Auto) 0.7 Baso % (Auto) 0.7 Lymph # (Auto) 1.0 L [place] # (Auto) 0.4 Eos # (Auto) 0.0 Baso # (Auto) 0.0 Abs Immat Gran (auto) 0.02 Absolute Neuts (auto) 3.1 Absolute Nucleated RBC 0.000 Nucleated RBC % (auto) 0.0 Anion Gap 12 Estim Creat Clear Calc 95.2 Estimated GFR > 60 Random Glucose 78 Lactic Acid 2.0 Calcium 8.1 L Total Bilirubin 0.5 AST 25 ALT 16 Alkaline Phosphatase 117 Total Protein 5.5 L Albumin 3.1 L COVID-19 (JAS) COVID-19 Clin Com 07/08/22 18:00 MCV MCH MCHC RDW Plt Count MPV Immature Gran % (Auto) Neut % (Auto) Lymph % (Auto) [place] % (Auto) Eos % (Auto) Baso % (Auto) Lymph # (Auto) [place] # (Auto) Eos # (Auto) Baso # (Auto) Abs Immat Gran (auto) Absolute Neuts (auto) Absolute Nucleated RBC Nucleated RBC % (auto) Anion Gap Estim Creat Clear Calc Estimated GFR Random Glucose Lactic Acid Calcium Total Bilirubin AST ALT Alkaline Phosphatase Total Protein Albumin COVID-19 (JAS) Negative COVID-19 Clin Com See Note Assessment and Plan (1) Infected venous access port: Status: Acute Plan 71-year-old with past medical history of colon cancer status post colon resection presents the hospital with infected port # infected chemotherapy port - there is erythema, edema, tenderness, and warmth - patient hemodynamically stable - will consult IR for removal of the port - broad-spectrum IV antibiotics - follow cultures # Hypertension - stable - continue home medications # PE - continue apixaban # chemotherapy-induced diarrhea - continue Imodium DVT prophylaxis: Eliquis Time Spent With Patient Time: Total time managing care of this patient today ____ minutes. Quality Stroke Does the patient have a stroke diagnosis?: No VTE Prior VTE?: No VTE Risk Level:: Medical - moderate - high VTE Device Contraindication: Treatment Not Indicated VTE Drug Contraindication: N/A - Med Ordered
--- NOTE | 2022-07-09 01:12 | PC.NURSE ---
Patient alert and oriented x 3. Patient denies any pain. Patients left chest portacath site swollen red and hot looks like it has a pus pocket. Patient ambulates independently. 20g iv placed in left antecubital by Dr. Schaffer. given iv antibiotics vancomycin and cefipime given.
[2022-07-09] MEDS: cefEPime HCl 2 GM in 0.9 % Sodium Chloride 50 ML IV ×3 (02:31→19:36)
[2022-07-09] MEDS: 0.9 % Sodium Chloride Flush 3 ML SYRINGE IVFLUSH (05:36)
[2022-07-09] MEDS: 0.9 % Sodium Chloride 1,000 ML 80 ML IVCONT ×2 (05:44→17:38)
--- NOTE | 2022-07-09 08:45 | MHC.CM.PN ---
PATIENT LIVES WITH HIS . HE USES A CANE AND WALKER. HCP ON FILE HE RECENTLY COMPLETED HIS RADIATION TREATMENT AND IS SCHEDULED FOR A PET SCAN THURSDAY JULY 14, 2022. HE IS ALSO WAITING FOR ONCOLOGY TO GIVE HIM A CHEMO RE-START DATE. HE REPORTS THAT IS IS HAVING AN OUTPATIENT PROCEDURE TODAY AND LIKELY WILL DC HOME FOLLOWING. SON IS IN FROM [facility] AND WILL PROVIDE TRANSPORT. MEDRANO 07/09 IN CHART.
[2022-07-09 08:50] LABS: Basophils Percent Auto 0.5 % (0-2); Eosinophils Percent Auto 0.9 % (0-4); Hematocrit 36.5 % (42.0-52.0); Hemoglobin 11.8 g/dl (14.0-18.0); Imm Gran Abs Auto 0.02 X10*3/uL (0.00-0.03); Imm Gran Pct Auto 0.5 % (0.0-0.4); Lymphocytes Absolute Auto 0.9 X10*3/uL (1.2-4.9); Lymphocytes Percent Auto 19.3 % (20-40); Mean Corpuscular HGB Conc 32.3 g/dl (31.0-36.0); Mean Corpuscular Hemoglobin 32.5 pg (27.0-33.0); Mean Corpuscular Volume 100.6 fL (80.0-98.0); Monocytes Absolute Auto 0.4 X10*3/uL (0.1-1.2); Monocytes Percent Auto 8.8 % (2-11); Neutrophils Absolute Auto 3.1 x10*3/uL (2.0-8.3); Platelet Count 303 X10*3/uL (160-400); Red Blood Count 3.63 X10*6/uL (4.60-5.80); Red Cell Distribution Width 14.4 % (11.0-16.0); White Blood Count 4.4 X10*3/uL (4.8-10.8)
[2022-07-09 08:51] LABS: INTERNATIONAL NORM RATIO 1.2 (0.9-1.1); Prothrombin Time 13.5 SEC (10.0-13.1)
[2022-07-09 08:54] LABS: Partial Thromboplastin Time 41.1 SEC (26.0-36.4)
[2022-07-09 08:57] LABS: MANUAL DIFF FLAG NO
[2022-07-09 09:40] LABS: Anion Gap 13 (12-20); Blood Urea Nitrogen 5 mg/dL (9-16); Carbon Dioxide 25 mmol/L (22-29); Chloride 97 mmol/L (96-108); Creatinine Clr Calc Pharmacy 96.7; Potassium 3.8 mmol/L (3.3-5.1); Sodium 131 mmol/L (135-145)
[2022-07-09 09:41] LABS: Calcium 8.2 mg/dL (8.4-10.2); Estimated Glomerular Filt Rate > 60; Glucose Random 67 mg/dL (60-115)
--- NOTE | 2022-07-09 10:26 | PHA.PROG ---
Admission Date/Time: July 09, 2022 00:12 Indication: other Weight in k.6 kg Adjusted body weight in Kg: [place] body weight in Kg: Obesity Dosing Indication % IBW: Serum Creatinine - Last 168 Hours 07/08/22 07/09/22 17:59 07:41 Creatinine 0.63 0.61 Estimated CrCl and GFR - Last 168 Hours 07/08/22 07/09/22 17:59 07:41 Estim Creat Clear Calc 95.2 96.7 Estimated GFR > 60 > 60 Vancomycin Loading Dose: 1000mg X 1 Current Vancomycin Dosing Regimen: 1250mg Q24H Vancomycin Monitoring using AUC goal of 400 - 600 range with trough as surrogate marker: 475mg/L Date and Time for next Vancomycin Level to be drawn: 07/11/22 @1600 Pharmacist Comments on Vancomycin Plan: Will continue to monitor Vancomycin dosing will take advantage of [employer] as a clinical decision support tool that uses Bayesian modeling to calculate individual patient's pharmacokinetic parameters and forecast the patient's drug concentration time course with the target goal AUC 24 range of 400 - 600 mg/L/hr.
--- NOTE | 2022-07-09 11:26 | PM.EVENT ---
Event Note Date of Service: 07/09/22 Event Note: Chart reviewed patient examined. Agree with assessment and plan history and physical is outlined. Patient to undergo port removal the IR later today. Will continue IV antibiotics and consult ID. Further plans is as clinical course unfolds Time Spent With Patient Time: Total time managing care of this patient today ____ minutes.
[2022-07-09] MEDS: Lidocaine HCl 1 % MPF 30 ML VIAL 20 ML SUBCUT (15:42)
[2022-07-09] MEDS: vancomycin HCL 1,250 MG in 0.9 % Sodium Chloride 250 ML 166.67 MG IV (17:38)
[2022-07-09] MEDS: Metoprolol Tartrate 12.5 MG HALFTAB PO (19:36)
[2022-07-09] MEDS: dexAMETHasone 4 MG TABLET PO (19:37)
[2022-07-09] MEDS: Apixaban 5 MG TABLET PO (19:37)
[2022-07-10] MEDS: cefEPime HCl 2 GM in 0.9 % Sodium Chloride 50 ML IV ×3 (02:23→19:19)
[2022-07-10 05:55] VITALS: BP 111/63; PULSE 75; RESP 16; TEMP 36.8; O2SAT 98
[2022-07-10] MEDS: 0.9 % Sodium Chloride 1,000 ML 80 ML IVCONT ×2 (06:26→23:42)
[2022-07-10 06:51] LABS: Anion Gap 15 (12-20); Blood Urea Nitrogen 9 mg/dL (9-16); Calcium 8.2 mg/dL (8.4-10.2); Carbon Dioxide 21 mmol/L (22-29); Chloride 104 mmol/L (96-108); Creatinine Clr Calc Pharmacy 103.5; Estimated Glomerular Filt Rate > 60; Glucose Random 95 mg/dL (60-115); Potassium 4.8 mmol/L (3.3-5.1); Sodium 135 mmol/L (135-145)
--- NOTE | 2022-07-10 07:11 | HE.PHANOTE ---
YESIKA VAZQUEZ CONTINUE CURRENT DOSE, NEXT TROUGH DUE 07/11 @1600 BRISSA
[2022-07-10] MEDS: Apixaban 5 MG TABLET PO ×2 (08:31→20:56)
[2022-07-10] MEDS: dexAMETHasone 4 MG TABLET PO ×2 (08:31→20:56)
[2022-07-10] MEDS: Ferrous Sulfate 324 MG TABLET.DR PO (08:31)
[2022-07-10] MEDS: Ascorbic Acid 500 MG TABLET PO (08:32)
[2022-07-10] MEDS: Metoprolol Tartrate 12.5 MG HALFTAB PO ×2 (08:32→20:56)
[2022-07-10 11:03] VITALS: BMI 17.4
--- NOTE | 2022-07-10 11:15 | MHC.CLN ---
NUTRITION QUALIFIES MODERATELY MALNOURISHED. ADDING ENSURE TID PER PREFERENCE. PROVIDES ADDITIONAL 1050 KCALS, 60 G PROTEIN. SEE NUTRITION ASSESSMENT 07/10/22.
[2022-07-10 11:36] LABS: Anion Gap 13 (12-20); Blood Urea Nitrogen 11 mg/dL (9-16); Calcium 8.1 mg/dL (8.4-10.2); Carbon Dioxide 20 mmol/L (22-29); Chloride 105 mmol/L (96-108); Creatinine Clr Calc Pharmacy 92.2; Estimated Glomerular Filt Rate > 60; Glucose Random 175 mg/dL (60-115); Potassium 4.4 mmol/L (3.3-5.1); Sodium 134 mmol/L (135-145)
--- NOTE | 2022-07-10 11:44 | P.PNIM_ITS ---
Subjective Subjective Date of Service: 07/10/22 Interval History: Admitted for infected tunneled port; successfully removed without issue. Remains afebrile Review of Systems Denies chest pain Denies shortness of breath Denies nausea vomiting diarrhea Denies fever chills Physical Exam 2 Vital Signs: Vital Signs: Last Vital Signs Temp 98.3 F 07/10/22 05:55 Pulse 75 07/10/22 05:55 Resp 16 07/10/22 05:55 BP 111/63 07/10/22 05:55 Pulse Ox 98 07/10/22 05:55 O2 Del Method 07/10/22 05:55 BMI result Body Mass Index 17.4 Const: Other: Awake alert oriented x3 no acute distress Chest: Other: Removal site clean dry and intact Resp: Other: Clear to auscultation bilaterally no rales rhonchi or wheezes Cardio: Other: No S4; positive S1-S2; no S3 murmurs Extrem: Other: No edema bilaterally Objective Data Active Medications Acetaminophen (Acetaminophen 325 Mg Tablet) 650 mg PO Q6H PRN PRN Reason: Pain, Mild (Pain Scale 1-3) Apixaban (Apixaban 5 Mg Tablet) 5 mg PO BID REPLACED BY [facility] Last Admin: 07/10/22 08:31 Dose: 5 mg Documented By: DEBORAH Ascorbic Acid (Ascorbic Acid 500 Mg Tablet) 500 mg PO DAILY REPLACED BY [facility] Last Admin: 07/10/22 08:32 Dose: 500 mg Documented By: DEBORAH Dexamethasone (Dexamethasone 4 Mg Tablet) 4 mg PO BID REPLACED BY [facility] Last Admin: 07/10/22 08:31 Dose: 4 mg Documented By: DEBORAH Docusate Sodium (Docusate Sodium 100 Mg Capsule) 100 mg PO DAILY PRN PRN Reason: Constipation Ferrous Sulfate (Ferrous Sulfate 324 Mg Tablet.) 324 mg PO DAILY REPLACED BY [facility] Last Admin: 07/10/22 08:31 Dose: 324 mg Documented By: DEBORAH Sodium Chloride (Ns) 1,000 mls @ 80 mls/hr IVCONT .[id number] REPLACED BY [facility] Last Admin: 07/10/22 06:26 Dose: 80 mls/hr Documented By: JOHNATHAN Vancomycin HCl 1,250 mg/ (Sodium Chloride) 250 mls @ 166.667 mls/hr IV Q24H REPLACED BY [facility] Last Infusion: 07/09/22 19:36 Dose: 0 mls/hr Documented By: JOHNATHAN Cefepime HCl 2 gm/ Sodium (Chloride) 50 mls @ 100 mls/hr IV Q8H REPLACED BY [facility] Last Admin: 07/10/22 11:05 Dose: 100 mls/hr Documented By: DEBORAH Loperamide HCl (Loperamide Hcl 2 Mg Capsule) 2 mg PO Q4H PRN PRN Reason: Diarrhea Metoprolol Tartrate (Metoprolol Tartrate 12.5 Mg Halftab) 12.5 mg PO BID REPLACED BY [facility]; Protocol Last Admin: 07/10/22 08:32 Dose: 12.5 mg Documented By: DEBORAH Ondansetron HCl (Ondansetron Hcl 4 Mg/2 Ml Vial) 4 mg IVPUSH Q8H PRN PRN Reason: Nausea and Vomiting Pharmacy Consult (Consult Rx Vancomycin Dosing) 1 each MISCELLANE DAILY PRN PRN Reason: Consult order Sodium Chloride (0.9 % Sodium Chloride Flush 3 Ml Syringe) 3 ml IVFLUSH QSHIFT REPLACED BY [facility] Last Admin: 07/10/22 08:30 Dose: Not Given Documented By: DEBORAH Non-Admin Reason: IV Running Labs CBC & Chem 7: 07/09/22 08:36 07/10/22 11:01 Labs: Laboratory Results - last 24 hr 07/10/22 07/10/22 06:10 11:01 Anion Gap 15 13 Estim Creat Clear Calc 103.5 92.2 Estimated GFR > 60 > 60 Random Glucose 95 175 H D Calcium 8.2 L 8.1 L Microbiology Microbiology Results: Microbiology 07/09/22 15:30 Catheter Tip Culture - Preliminary Catheter Tip - Other No growth after 1 day 07/08/22 18:10 Blood Culture - Preliminary Blood - Venous No growth after 24 hours. 07/08/22 17:59 Blood Culture - Preliminary Blood - Venous No growth after 24 hours. Assessment and Plan (1) Infected venous access port: Status: Acute (2) HTN (hypertension): Status: Acute Plan 71-year-old with past medical history of colon cancer status post colon resection presents the hospital with infected port 1.Infected chemotherapy port - port successfully removed -continue current antibiotics/vanco Zosyn -await ID input for antibiotic and duration 2.Hypertension - stable - continue home medications 3.PE - continue apixaban DVT prophylaxis: Eliquis Requires ongoing hospitalization for IV antibiotics to treat infected port site Time Spent With Patient Time: Total time managing care of this patient today ____ minutes. Quality Stroke Does the patient have a stroke diagnosis?: No VTE Prior VTE?: No VTE Risk Level:: Medical - moderate - high VTE Device Contraindication: Treatment Not Indicated VTE Drug Contraindication: N/A - Med Ordered
--- NOTE | 2022-07-10 12:20 | P.CNID_ITS ---
History of Present Illness Data of Consult Service Date: 07/10/22 Requesting physician: Royer Lockwood Primary Care Provider: Jose James [facility] HPI Reason for consult: right chest infected port He presents with redness right chest port. Port was used in March and had no complaints Over last week it became red streaking up chest wall. Blood cultures negative so far. 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 Renal cell carcinoma Family History Family History Mother Parkinsons disease Father ESRD (end stage renal disease) Other No family history of cancer Family history: reviewed and not pertinent Surgical History Surgical History H/O hernia repair S/P colon resection Social History Social History Household Members: Spouse Household Members Other:: 1 Housing: House Are you a primary critical care technician to a significant other at home: No Do you presently have visiting nurse or other home services: No Alcohol intake: never Patient Tobacco Use Status: Former Tobacco user Quit Date: 30 y.o Tobacco use type: Cigarette Years Smoked: 30 years ago e-Cigarette/Vaping Use: Never Used Second Hand Smoke Exposure: No service: Yes (1969- ) Current occupational status: employed and retired Cognitive needs: No Hearing needs: No Vision needs: No Meds Allergies Allergy/AdvReac Type Severity Reaction Status Date / Time No Known Allergies Allergy Verified 06/16/22 11:01 Active Medications: Current Medications Acetaminophen (Acetaminophen 325 Mg Tablet) 650 mg PO Q6H PRN PRN Reason: Pain, Mild (Pain Scale 1-3) Apixaban (Apixaban 5 Mg Tablet) 5 mg PO BID [facility] Last Admin: 07/10/22 08:31 Dose: 5 mg Ascorbic Acid (Ascorbic Acid 500 Mg Tablet) 500 mg PO DAILY [facility] Last Admin: 07/10/22 08:32 Dose: 500 mg Dexamethasone (Dexamethasone 4 Mg Tablet) 4 mg PO BID [facility] Last Admin: 07/10/22 08:31 Dose: 4 mg Docusate Sodium (Docusate Sodium 100 Mg Capsule) 100 mg PO DAILY PRN PRN Reason: Constipation Ferrous Sulfate (Ferrous Sulfate 324 Mg Tablet.Dr) 324 mg PO DAILY [facility] Last Admin: 07/10/22 08:31 Dose: 324 mg Sodium Chloride (Ns) 1,000 mls @ 80 mls/hr IVCONT .[id number] [facility] Last Admin: 07/10/22 06:26 Dose: 80 mls/hr Vancomycin HCl 1,250 mg/ (Sodium Chloride) 250 mls @ 166.667 mls/hr IV Q24H [facility] Last Infusion: 07/09/22 19:36 Dose: Infused Cefepime HCl 2 gm/ Sodium (Chloride) 50 mls @ 100 mls/hr IV Q8H [facility] Last Infusion: 07/10/22 11:48 Dose: Infused Loperamide HCl (Loperamide Hcl 2 Mg Capsule) 2 mg PO Q4H PRN PRN Reason: Diarrhea Metoprolol Tartrate (Metoprolol Tartrate 12.5 Mg Halftab) 12.5 mg PO BID [facility]; Protocol Last Admin: 07/10/22 08:32 Dose: 12.5 mg Ondansetron HCl (Ondansetron Hcl 4 Mg/2 Ml Vial) 4 mg IVPUSH Q8H PRN PRN Reason: Nausea and Vomiting Pharmacy Consult (Consult Rx Vancomycin Dosing) 1 each MISCELLANE DAILY PRN PRN Reason: Consult order Sodium Chloride (0.9 % Sodium Chloride Flush 3 Ml Syringe) 3 ml IVFLUSH QSHIFT [facility] Last Admin: 07/10/22 08:30 Dose: Not Given Home Medications Medication Instructions Recorded Confirmed Last Taken Type ascorbate calcium (vitamin C) 500 500 mg PO DAILY 10/09/21 07/08/22 07/08/22 History mg tablet ferrous sulfate 325 mg (65 mg 325 mg PO DAILY 10/09/21 07/08/22 07/08/22 History iron) tablet loperamide 2 mg capsule 2 mg PO Q4H PRN Diarrhea 04/08/22 07/08/22 Unknown History apixaban 5 mg tablet (Eliquis) 5 mg PO BID 06/08/22 07/08/22 07/08/22 History dexamethasone 4 mg tablet 4 mg PO BID 07/08/22 07/08/22 07/08/22 History midodrine 5 mg tablet 5 mg PO TIDWM 07/08/22 07/08/22 07/08/22 History Physical Exam Vital Signs: Vital Signs: Last Vital Signs Temp 98.3 F 07/10/22 05:55 Pulse 75 07/10/22 05:55 Resp 16 07/10/22 05:55 BP 111/63 07/10/22 05:55 Pulse Ox 98 07/10/22 05:55 O2 Del Method 07/10/22 05:55 BMI result Body Mass Index 17.4 Const: General: cooperative HEENT: Head: Yes normal to inspection Face and sinus: Yes normal facial exam Mouth: Normal oral and palatal mucosa present Teeth and gingiva: dentition normal Eyes: General: appearance normal, both eyes and all related structures Pupils: Equal, round and reactive pupils present Resp: Effort & Inspection: normal respiratory effort Cardio: Rate: regular rate Rhythm: regular rhythm GI: Palpation (GI): Soft to palpation and nontender : General: Yes no CVA tenderness Back/Spine/Pelvis: Back: no CVA tenderness Skin: Other: streaking redness up from port site, small reddened area at port Neuro: General: moves all extremities Cranial nerves: Yes Equal, round and reactive pupils present Extrem: General: Yes normal to inspection Psych: Appearance: grossly normal Results Labs CBC & Chem 7: 07/09/22 08:36 07/10/22 11:01 Labs: BMP 07/10/22 07/10/22 06:10 11:01 Sodium 135 134 L Potassium 4.8 D 4.4 Chloride 104 105 Carbon Dioxide 21 L 20 L BUN 9 11 D Creatinine 0.57 0.64 Calcium 8.2 L 8.1 L Microbiology Microbiology Results: Microbiology 07/09/22 15:30 Catheter Tip - Other Catheter Tip Culture - Preliminary No growth after 1 day 07/08/22 18:10 Blood - Venous Blood Culture - Preliminary No growth after 24 hours. 07/08/22 17:59 Blood - Venous Blood Culture - Preliminary No growth after 24 hours. 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
[2022-07-10 13:37] VITALS: BP 126/66; PULSE 78; RESP 18; TEMP 36.2; O2SAT 100
[2022-07-10 15:19] VITALS: BP 119/67; PULSE 77; RESP 17; TEMP 36.4; O2SAT 97
[2022-07-10] MEDS: vancomycin HCL 1,250 MG in 0.9 % Sodium Chloride 250 ML 166.67 MG IV (17:31)
[2022-07-10 19:28] VITALS: BP 134/69; PULSE 80; RESP 16; TEMP 36.3; O2SAT 99
[2022-07-10 19:57] LABS: Anion Gap 15 (12-20); Blood Urea Nitrogen 14 mg/dL (9-16); Calcium 8.5 mg/dL (8.4-10.2); Carbon Dioxide 22 mmol/L (22-29); Chloride 105 mmol/L (96-108); Creatinine Clr Calc Pharmacy 88.1; Estimated Glomerular Filt Rate > 60; Glucose Random 176 mg/dL (60-115); Potassium 4.6 mmol/L (3.3-5.1); Sodium 137 mmol/L (135-145)
[2022-07-10 22:00] VITALS: PULSE 70; RESP 20; TEMP 37.1; O2SAT 97
[2022-07-11] MEDS: cefEPime HCl 2 GM in 0.9 % Sodium Chloride 50 ML IV ×3 (04:00→17:58)
[2022-07-11 04:01] VITALS: BP 130/73; PULSE 70; RESP 13; TEMP 36; O2SAT 99
[2022-07-11 07:32] VITALS: BP 132/67; PULSE 57; RESP 18; TEMP 36.1; O2SAT 96
[2022-07-11 08:01] LABS: Creatinine Clr Calc Pharmacy 98.3; Estimated Glomerular Filt Rate > 60
[2022-07-11] MEDS: dexAMETHasone 4 MG TABLET PO ×2 (10:02→20:39)
[2022-07-11] MEDS: Ascorbic Acid 500 MG TABLET PO (10:02)
[2022-07-11] MEDS: Ferrous Sulfate 324 MG TABLET.DR PO (10:02)
[2022-07-11] MEDS: Metoprolol Tartrate 12.5 MG HALFTAB PO ×2 (10:02→20:39)
[2022-07-11] MEDS: Apixaban 5 MG TABLET PO ×2 (10:02→20:39)
[2022-07-11] MEDS: 0.9 % Sodium Chloride Flush 3 ML SYRINGE IVFLUSH ×3 (10:03→20:39)
--- NOTE | 2022-07-11 12:32 | HO.PM.IMPN ---
Subjective Subjective Date of Service: 07/11/22 Interval History: Status post removal of infected tunneled port catheterization. Remains afebrile no acute issues Review of Systems Denies chest pain Denies shortness of breath Denies nausea vomiting diarrhea Denies fever chills Physical Exam Vital Signs: Vital Signs: Last Vital Signs Temp 96.9 F 07/11/22 07:32 Pulse 57 07/11/22 07:32 Resp 18 07/11/22 07:32 BP 132/67 07/11/22 07:32 Pulse Ox 96 07/11/22 07:32 O2 Del Method 07/11/22 07:32 BMI result Body Mass Index 17.4 Const: Other: Awake alert oriented x3 no acute distress Chest: Other: Removal site clean dry and intact Resp: Other: Clear to auscultation bilaterally no rales rhonchi or wheezes Cardio: Other: No S4; positive S1-S2; no S3 murmurs Extrem: Other: No edema bilaterally Objective Data Active Medications Acetaminophen (Acetaminophen 325 Mg Tablet) 650 mg PO Q6H PRN PRN Reason: Pain, Mild (Pain Scale 1-3) Apixaban (Apixaban 5 Mg Tablet) 5 mg PO BID [facility] Last Admin: 07/11/22 10:02 Dose: 5 mg Documented By: JOSSELINE Ascorbic Acid (Ascorbic Acid 500 Mg Tablet) 500 mg PO DAILY [facility] Last Admin: 07/11/22 10:02 Dose: 500 mg Documented By: JOSSELINE Dexamethasone (Dexamethasone 4 Mg Tablet) 4 mg PO BID [facility] Last Admin: 07/11/22 10:02 Dose: 4 mg Documented By: JOSSELINE Docusate Sodium (Docusate Sodium 100 Mg Capsule) 100 mg PO DAILY PRN PRN Reason: Constipation Ferrous Sulfate (Ferrous Sulfate 324 Mg Tablet.) 324 mg PO DAILY [facility] Last Admin: 07/11/22 10:02 Dose: 324 mg Documented By: JOSSELINE Vancomycin HCl 1,250 mg/ (Sodium Chloride) 250 mls @ 166.667 mls/hr IV Q24H [facility] Last Infusion: 07/10/22 19:17 Dose: 0 mls/hr Documented By: JOHNATHAN Cefepime HCl 2 gm/ Sodium (Chloride) 50 mls @ 100 mls/hr IV Q8H [facility] Last Infusion: 07/11/22 10:34 Dose: 0 mls/hr Documented By: JOSSELINE Loperamide HCl (Loperamide Hcl 2 Mg Capsule) 2 mg PO Q4H PRN PRN Reason: Diarrhea Metoprolol Tartrate (Metoprolol Tartrate 12.5 Mg Halftab) 12.5 mg PO BID [facility]; Protocol Last Admin: 07/11/22 10:02 Dose: 12.5 mg Documented By: JOSSELINE Ondansetron HCl (Ondansetron Hcl 4 Mg/2 Ml Vial) 4 mg IVPUSH Q8H PRN PRN Reason: Nausea and Vomiting Pharmacy Consult (Consult Rx Vancomycin Dosing) 1 each MISCELLANE DAILY PRN PRN Reason: Consult order Sodium Chloride (0.9 % Sodium Chloride Flush 3 Ml Syringe) 3 ml IVFLUSH QSHIFT [facility] Last Admin: 07/11/22 10:03 Dose: 3 ml Documented By: JOSSELINE Labs CBC & Chem 7: 07/09/22 08:36 07/11/22 07:25 Labs: Laboratory Results - last 24 hr 07/10/22 07/11/22 17:15 07:25 Anion Gap 15 Estim Creat Clear Calc 88.1 98.3 Estimated GFR > 60 > 60 Random Glucose 176 H Calcium 8.5 Microbiology Microbiology Results: Microbiology 07/09/22 15:30 Catheter Tip Culture - Preliminary Catheter Tip - Other No growth to date. 07/08/22 18:10 Blood Culture - Preliminary Blood - Venous No growth after 48 hours. 07/08/22 17:59 Blood Culture - Preliminary Blood - Venous No growth after 48 hours. Assessment and Plan (1) Infected venous access port: Status: Acute (2) HTN (hypertension): Status: Acute Plan 71-year-old with past medical history of colon cancer status post colon resection presents the hospital with infected port; port removed without issues. Remains afebrile 1.Infected chemotherapy port - port successfully removed -continue current antibiotics/vanco Zosyn -as per ID when cultures negative times 72 hours can switch to p.o. in discharge patient. Likely tomorrow a.m. 2.Hypertension - stable - continue home medications 3.PE - continue apixaban DVT prophylaxis: Lisaquis Requires ongoing hospitalization for IV antibiotics to treat infected port site Time Spent With Patient Time: Total time managing care of this patient today ____ minutes. Quality Stroke Does the patient have a stroke diagnosis?: No VTE Prior VTE?: No VTE Risk Level:: Medical - moderate - high VTE Device Contraindication: Treatment Not Indicated VTE Drug Contraindication: N/A - Med Ordered
[2022-07-11 14:59] VITALS: BP 139/68; PULSE 72; RESP 18; O2SAT 99
[2022-07-11 17:28] LABS: Vancomycin Trough 7.8 mcg/mL (10.0-20.0)
--- NOTE | 2022-07-11 17:45 | HE.PHANOTE ---
VANCOMYCIN DOSING ADJUSTMENT BASE ON SCR OF 0.6 AND TROUGH OF 7.8 DOSE ADJUSTED TO 1500 Q 24. NEXT TROUGH 07/13 1600
[2022-07-11] MEDS: vancomycin HCL 1,500 MG in 0.9 % Sodium Chloride 500 ML 333.33 MG IV (18:32)
[2022-07-11 19:15] VITALS: BP 154/67; PULSE 71; RESP 18; TEMP 36.4; O2SAT 100
[2022-07-11] MEDS: Docusate Sodium 100 MG CAPSULE PO (20:39)
[2022-07-12 03:16] VITALS: BP 137/78; PULSE 69; RESP 13; TEMP 36.1; O2SAT 98
[2022-07-12] MEDS: cefEPime HCl 2 GM in 0.9 % Sodium Chloride 50 ML IV ×2 (03:31→11:22)
[2022-07-12 07:17] VITALS: BP 134/79; PULSE 81; RESP 18; TEMP 36.2; O2SAT 95
[2022-07-12 07:19] LABS: Basophils Percent Auto 0.2 % (0-2); Hematocrit 36.7 % (42.0-52.0); Hemoglobin 11.9 g/dl (14.0-18.0); Imm Gran Abs Auto 0.15 X10*3/uL (0.00-0.03); Imm Gran Pct Auto 1.2 % (0.0-0.4); Lymphocytes Absolute Auto 0.7 X10*3/uL (1.2-4.9); Lymphocytes Percent Auto 5.2 % (20-40); MANUAL DIFF FLAG SCAN; Mean Corpuscular HGB Conc 32.4 g/dl (31.0-36.0); Mean Corpuscular Hemoglobin 33.1 pg (27.0-33.0); Mean Corpuscular Volume 102.2 fL (80.0-98.0); Mean Platelet Volume 9.3 fL (9.4-12.4); Monocytes Absolute Auto 0.3 X10*3/uL (0.1-1.2); Monocytes Percent Auto 2.4 % (2-11); Neutrophils Absolute Auto 11.7 x10*3/uL (2.0-8.3); Platelet Count 397 X10*3/uL (160-400); Red Blood Count 3.59 X10*6/uL (4.60-5.80); Red Cell Distribution Width 14.4 % (11.0-16.0); SCAN SMEAR FLAG 1; White Blood Count 12.9 X10*3/uL (4.8-10.8)
[2022-07-12 07:30] LABS: Alanine Aminotransferase 26 U/L (0-40); Alkaline Phosphatase 108 U/L (39-117); Anion Gap 12 (12-20); Aspartate Amino Transferase 35 U/L (5-37); Bilirubin Total 0.2 mg/dL (0.0-1.0); Blood Urea Nitrogen 12 mg/dL (9-16); Calcium 8.5 mg/dL (8.4-10.2); Carbon Dioxide 22 mmol/L (22-29); Chloride 112 mmol/L (96-108); Creatinine Clr Calc Pharmacy 93.7; Estimated Glomerular Filt Rate > 60; Glucose Fasting 148 mg/dL (60-99); Potassium 4.3 mmol/L (3.3-5.1); Sodium 142 mmol/L (135-145); Total Protein 5.2 g/dL (6.5-8.0)
--- NOTE | 2022-07-12 07:36 | HE.PHANOTE ---
Vancomycin Dosing Addendum Patients renal function is stable. Patient to continue current regimen of 1500 mg Q24H. Level 07/13 @1600. Predicted AUC 482 mg/L/hr
[2022-07-12 07:51] LABS: SLIDE REVIEW VERIFIED
[2022-07-12] MEDS: Ascorbic Acid 500 MG TABLET PO (08:29)
[2022-07-12] MEDS: Apixaban 5 MG TABLET PO (08:29)
[2022-07-12] MEDS: dexAMETHasone 4 MG TABLET PO (08:29)
[2022-07-12] MEDS: 0.9 % Sodium Chloride Flush 3 ML SYRINGE IVFLUSH (08:29)
[2022-07-12] MEDS: Metoprolol Tartrate 12.5 MG HALFTAB PO (08:29)
[2022-07-12] MEDS: Ferrous Sulfate 324 MG TABLET.DR PO (08:29)
--- NOTE | 2022-07-12 08:47 | MHC.CM.PN ---
Addendum entered by Sosa Quintanilla RN 07/12/22 08:58: DR ZARAGOZA APPT 07/14 AND FAMILY FOR TRANSPORT Original Note: PT MEDICALLY CLEARED FOR D/C HOME SELF-CARE W/FOLLOW-UP W/DR ZARAGOZA ON
--- NOTE | 2022-07-12 10:04 | P.DS_ITS ---
DS: Providers Provider Date of Service: 07/12/22 Date of admission: 07/10/22 13:38 Date of discharge: 07/12/22 Primary care physician: MARCIE Meraz Consults: 07/09/22 11:27 Consult to Infectious Diseases Stat Consulting Provider: Rubia Johnston Reason for consultation: Infected port Has provider been notified: Yes DS: Diagnosis Discharge Diagnosis (1) Infected venous access port: Status: Acute (2) HTN (hypertension): Status: Acute DS: Summary Hospital Course Hospital Course: 71-year-old male with past medical history of colon cancer status post colon resection, currently being managed by Oncology, HTN, presents the hospital for evaluation of infected port.? Patient has a Port-A-Cath in the right chest, has been red, slightly painful, and warm for the past? 1 week.? Patient denies any chills or fever.? He went to see his oncologist today and was sent to the ED for further evaluation and likely removal of the port.? Patient denies having any chest pain, no abdominal pain, no nausea or vomiting, no diarrhea constipation, no urinary symptoms and no lower extremity edema Last time the port was use was about 2 months ago On arrival to the ED patient hemodynamically stable with no significant abnormal vitals Labs are significant for WBC count of 4.6, hemoglobin of 11.4, hematocrit of 34.6, sodium of 129, with a baseline of 139, no other significant abnormality Hospital course Admitted to general medical floor and started on vancomycin and cefepime. On 07/09/2022 underwent removal of tunnel catheter without incident. Seen by Infectious Disease who recommended that cultures negative times 72 hours can be discharged on Augmentin and doxycycline. At this point cultures are negative and he will be discharged on same. He has follow-up 07/14 with his oncologist and will follow-up with PCP in 2 weeks Time Spent with Patient Time attestation: Total time managing care of this patient today ____ minutes. Discharge coordination time: Greater than 30 minutes Quality: Safe Use of Opioids Does Pt have an Active Cancer Diagnosis on the Problem List?: No Quality: Stroke Does the patient have a stroke diagnosis?: No Physical Exam Vital Signs: Vital Signs: Last Vital Signs Temp 97.1 F 07/12/22 07:17 Pulse 81 07/12/22 07:17 Resp 18 07/12/22 07:17 BP 134/79 07/12/22 07:17 Pulse Ox 95 07/12/22 07:17 O2 Del Method 07/12/22 07:17 BMI result Body Mass Index 17.4 Const: Other: Awake alert oriented x3 no acute distress Chest: Other: Removal site clean dry and intact Resp: Other: Clear to auscultation bilaterally no rales rhonchi or wheezes Cardio: Other: No S4; positive S1-S2; no S3 murmurs Extrem: Other: No edema bilaterally DS: Data Data Completed and Pending Completed studies during hospitalization [Text1]: Procedures Bypass Sigmoid Colon to Cutaneous, Open Approach (09/02/21) Drainage of Right Kidney, Percutaneous Approach, Diagnostic (09/02/21) Excision of Bladder, Open Approach (09/02/21) Excision of Rectum, Open Approach (09/02/21) Excision of Right Kidney, Percutaneous Approach, Diagnostic (09/02/21) Excision of Sigmoid Colon, Open Approach (09/02/21) Excision of Sigmoid Colon, Via Natural or Artificial Opening Endoscopic, Diagnostic (09/02/21) Release Peritoneum, Open Approach (12/30/21) Removal of Drainage Device from Peritoneal Cavity, Open Approach (12/30/21) Repair Bladder, Open Approach (09/02/21) Labs on day of discharge: Laboratory Results - last 24 hr 07/11/22 07/12/22 07/12/22 16:29 06:40 06:40 WBC 12.9 H RBC 3.59 L Hgb 11.9 L Hct 36.7 L MCV 102.2 H MCH 33.1 H MCHC 32.4 RDW 14.4 Plt Count 397 D MPV 9.3 L Immature Gran % (Auto) 1.2 H Neut % (Auto) 91.0 H Lymph % (Auto) 5.2 L Fannin % (Auto) 2.4 Eos % (Auto) 0.0 Baso % (Auto) 0.2 Lymph # (Auto) 0.7 L Fannin # (Auto) 0.3 Eos # (Auto) 0.0 Baso # (Auto) 0.0 Abs Immat Gran (auto) 0.15 H Absolute Neuts (auto) 11.7 H Absolute Nucleated RBC 0.000 Nucleated RBC % (auto) 0.0 Smear Tech's Comments VERIFIED Sodium 142 Potassium 4.3 Chloride 112 H Carbon Dioxide 22 Anion Gap 12 BUN 12 Creatinine 0.63 Estim Creat Clear Calc 93.7 Estimated GFR > 60 Fasting Glucose 148 H Calcium 8.5 Total Bilirubin 0.2 AST 35 ALT 26 Alkaline Phosphatase 108 Total Protein 5.2 L Albumin 3.0 L Vancomycin Trough 7.8 L Preliminary micro results at discharge 07/09/22 15:30 Catheter Tip Culture - Preliminary Catheter Tip - Other No growth after 2 days 07/08/22 18:10 Blood Culture - Preliminary Blood - Venous No growth after 48 hours. 07/08/22 17:59 Blood Culture - Preliminary Blood - Venous No growth after 48 hours. Discharge Plan Discharge Anticipated Discharge Date/Time: 07/12/22 10:00 Patient Disposition: Home, Self-Care Discharge Diagnosis: Infected venous access port Referrals: Jose James, [employer]- [Primary Care Provider] - 1 Week Discharge Medications: New amoxicillin-pot clavulanate 875-125 mg tablet 1 tab PO BID Qty: 20 0RF doxycycline hyclate 100 mg tablet 100 mg PO BID 10 Days Qty: 20 0RF Continued dexamethasone 4 mg tablet 4 mg PO BID midodrine 5 mg tablet 5 mg PO TIDWM loperamide 2 mg Capsule 2 mg PO Q4H PRN (Reason: Diarrhea) Rx Instructions: administer after each loose stool until symptoms controlled; do not exceed 8 mg per 24 hrs metoprolol tartrate 25 mg tablet 12.5 mg PO BID Qty: 30 0RF ascorbate calcium (vitamin C) 500 mg tablet 500 mg PO DAILY ferrous sulfate 325 mg (65 mg iron) tablet 325 mg PO DAILY Eliquis 5 mg tablet 5 mg PO BID Discharge Orders: Discharge Order (Routine); Ordered 07/12/22 Ordered By: Royer Lockwood Diet: Advance to usual diet Activity on Discharge: As tolerated Stand Alone Forms: Patient Portal Discharge page Care Plan Goals: Keep catheter site clean dry and intact. Follow-up with Dr. Cisneros as scheduled Health Concerns: Complete course of Augmentin and doxy as ordered Plan of Treatment: Follow-up with PCP 2 weeks Assessment: See discharge summary
--- NOTE | 2022-07-12 13:15 | PC.NURSE ---
Alert and oriented. Denies pain, VSS, afebrile, no acute resp. distress noted. Took all schedule meds. New order to discharge patient home. Went over discharge instrcutions, follow up apt and medications administrations with patient and family. Verbalized understanding back. Staff transported to the lobby via w/c, left via car with his son.
== END 2022-07-12 13:00 | disposition home or self-care (01) | DRG 271 ==
LOC: HO.ED 17:11 → HO.EDOVER 07-09 00:27 → HO.S3 07-09 03:45
PROVIDERS: Radiology Diagnostic Radiology; Admitting Provider Internal Medicine; Emergency Provider Internal Medicine; PCP Nurse Practitioner Family; Visit Provider Hospitalist
PROC: 02PY03Z Removal of Infusion Device from Great Vessel, Open Approach (ICD-10-PCS; CPT 36590; principal; 2022-07-09 14:30)
DX: T82.7XXA Infection and inflammatory reaction due to other cardiac and vascular devices, implants and grafts, initial encounter (principal); K52.1 Toxic gastroenteritis and colitis; I10 Essential (primary) hypertension; T45.1X5A Adverse effect of antineoplastic and immunosuppressive drugs, initial encounter; Z93.3 Colostomy status; Z20.822 Contact with and (suspected) exposure to COVID-19; Z85.038 Personal history of other malignant neoplasm of large intestine; Z86.711 Personal history of pulmonary embolism; Z87.891 Personal history of nicotine dependence; Z79.01 Long term (current) use of anticoagulants; Z79.899 Other long term (current) drug therapy
CPT/HCPCS: 36415; 36590; 80048; 80053; 80202; 82565; 83605; 85025; 85610; 85730; 87040; 87071; 87635; 99152; 99153; 99285; J0692; J3370; J8540

== ENCOUNTER → 2022-07-15 08:51 | Outpatient (BNVA) | payer OTHER, SELFPAY | PROVIDERS: PCP Nurse Practitioner Family; Visit Provider Internal Medicine | DX: D35.2 Benign neoplasm of pituitary gland (principal) ==

== ENCOUNTER 2022-07-16 07:23 | Outpatient (REF) | payer OTHER, SELFPAY ==
[2022-07-16 08:28] LABS: Anion Gap 13 (12-20); Blood Urea Nitrogen 8 mg/dL (9-16); Calcium 8.7 mg/dL (8.4-10.2); Carbon Dioxide 26 mmol/L (22-29); Chloride 101 mmol/L (96-108); Cortisol Random 13.8 ug/dL; Estimated Glomerular Filt Rate > 60; Free T4 (Free Thyroxine) 0.85 ng/dL (0.71-1.85); Glucose Random 72 mg/dL (60-115); Sodium 136 mmol/L (135-145); Thyroid Stimulating Hormone 1.62 uIU/mL (0.32-4.0)
[2022-07-16 08:49] LABS: Osmolality, Serum 284 mosm/kg (281-305)
[2022-07-17 23:05] LABS: Triiodothyronine T3 Total 57 ng/dL (76-181)
[2022-07-21 20:10] LABS: Follicle Stimulating Hormone 14.7 mIU/mL (1.6-8.0); Lutenizing Hormone 5.2 mIU/mL (1.6-15.2); Prolactin Undiluted 6.4 ng/mL (2.0-18.0)
[2022-07-22 06:33] LABS: Adrenocorticotropic Hormone 15 pg/mL (6-50)
[2022-07-22 16:37] LABS: Sex Hormone Binding Globulin 108 nmol/L (22-77)
[2022-07-23 14:18] LABS: Testosterone, Free 4.8 pg/mL (30.0-135.0); Testosterone, Total 63 ng/dL (250-1100)
[2022-07-23 16:08] LABS: IGF-1 (Somatomedin C) 32 ng/mL (34-245); IGF-1 Z Score (Male) -2.2 SD (-2.0 - +2.0)
== END 2022-07-16 07:24 | disposition home or self-care (01) ==
LOC: HO.LAB 07:23
PROVIDERS: PCP Nurse Practitioner Family; Visit Provider Internal Medicine
DX: D35.2 Benign neoplasm of pituitary gland (principal)
CPT/HCPCS: 36415; 80048; 82024; 82533; 83001; 83002; 83930; 84146; 84270; 84305; 84402; 84403; 84439; 84443; 84480

== ENCOUNTER 2022-07-22 05:00 | Inpatient (IN) | payer OTHER, SELFPAY ==
[2022-07-22] VITALS (9 sets, daily range): BP systolic 63–147; BP diastolic 36–78; PULSE 70–106; RESP 12–19; TEMP 36.8–37.6; O2SAT 92–97; BMI 18.3
--- NOTE | ~2022-07-22 | CT_ITS ---
EXAMINATION: CT HEAD WITHOUT CONTRAST CLINICAL INFORMATION: Fall on blood thinning medicine COMPARISON: Previous head CT April 2022 and brain MRI May 2022 TECHNIQUE: Contiguous axial imaging was performed from the skull base to vertex without intravenous administration of contrast. This CT examination was performed using dose optimization techniques as appropriate, variously including the following: *Automated exposure control *Adjustment of mA and/or kV according to patient size (this includes techniques or standardized protocols for targeted exams where dose is matched to indication/reason for exam; i.e. extremities or head) *Use of iterative reconstruction technique DLP: 637 mGy-cm FINDINGS: There is no evidence of an extra-axial collection. There is no evidence of intra-axial or extra-axial hemorrhage. The ventricles and extra-axial CSF spaces are slightly prominent suggestive of mild generalized atrophy. There is nonspecific periventricular white matter disease. Pituitary lesion appears unchanged. There is atherosclerotic disease. No mass, mass effect or infarct is seen. No skull fracture is seen. Visualized paranasal sinuses, mastoid air cells and middle ears are clear. CT/CT head/brain wo IV con IMPRESSION: No acute findings. Stable pituitary lesion.
--- NOTE | ~2022-07-22 | XR_ITS ---
EXAMINATION: XR CHEST CLINICAL INFORMATION: Cough COMPARISON: Previous chest x-ray most recent April 2022 TECHNIQUE: Frontal view of the chest was obtained. FINDINGS: The cardiac and mediastinal contours are stable. The lungs are well inflated. There are coarse lung markings similar to previous exams. No definite infiltrate. There is no pleural effusion or pneumothorax. Right jugular port has been removed. There are degenerative changes of the spine. XR/XR chest 1V IMPRESSION: No evidence for acute disease in the chest.
--- NOTE | 2022-07-22 05:15 | ECG_ITS ---
Test Reason : WEAKNESS Blood Pressure : / mmHG Vent. Rate : 081 BPM Atrial Rate : 081 BPM P-R Int : 148 ms QRS Dur : 090 ms QT Int : 376 ms P-R-T Axes : 076 050 070 degrees QTc Int : 436 ms Normal sinus rhythm with sinus arrhythmia Normal ECG When compared with ECG of 18-MAY-2022 02:44, No significant change was found Referred By: Generic ED Physician Electronically Signed By:BLAS CRAIG MD
[2022-07-22 06:59] LABS: MANUAL DIFF FLAG NO
[2022-07-22 07:00] LABS: Basophils Absolute Auto 0.1 X10*3/uL (0.0-0.2); Basophils Percent Auto 0.7 % (0-2); Eosinophils Absolute Auto 0.2 X10*3/uL (0.0-0.4); Eosinophils Percent Auto 1.9 % (0-4); Hematocrit 35.4 % (42.0-52.0); Hemoglobin 12.1 g/dl (14.0-18.0); Imm Gran Abs Auto 0.07 X10*3/uL (0.00-0.03); Imm Gran Pct Auto 0.7 % (0.0-0.4); Lymphocytes Absolute Auto 1.3 X10*3/uL (1.2-4.9); Lymphocytes Percent Auto 12.4 % (20-40); Mean Corpuscular HGB Conc 34.2 g/dl (31.0-36.0); Mean Corpuscular Hemoglobin 32.5 pg (27.0-33.0); Mean Corpuscular Volume 95.2 fL (80.0-98.0); Mean Platelet Volume 9.1 fL (9.4-12.4); Monocytes Absolute Auto 0.8 X10*3/uL (0.1-1.2); Neutrophils Absolute Auto 7.9 x10*3/uL (2.0-8.3); Neutrophils Percent Auto 76.3 % (45-73); Platelet Count 302 X10*3/uL (160-400); Red Blood Count 3.72 X10*6/uL (4.60-5.80); Red Cell Distribution Width 14.5 % (11.0-16.0); White Blood Count 10.3 X10*3/uL (4.8-10.8)
--- NOTE | 2022-07-22 07:04 | ED_ITS ---
HPI - Weakness General Chief complaint: Weakness Stated complaint: DIZZINESS,WEAKNESS Time Seen by Provider: 07/22/22 06:35 Source: patient Mode of arrival: EMS History of Present Illness HPI Narrative: This is a 71-year-old male who is brought in by EMS for increasing weakness and dizziness over the last couple of weeks, patient was discharged from this facility on 07/12 and has known underlying metastatic cancer. Patient states that he is currently on 5 mg of Eliquis b.i.d. and the who is at bedside reports that he had 2 significant falls while taking a shower. During the last admission patient had his chemo port removed due to infection. Patient states he has been taking all of his medications as prescribed and denies any fever, chills. Related Data Home Medications Medication Instructions Recorded Confirmed ascorbate calcium (vitamin C) 500 500 mg PO DAILY 10/09/21 07/15/22 mg tablet ferrous sulfate 325 mg (65 mg 325 mg PO DAILY 10/09/21 07/15/22 iron) tablet loperamide 2 mg capsule 2 mg PO Q4H PRN Diarrhea 04/08/22 07/15/22 apixaban 5 mg tablet (Eliquis) 5 mg PO BID 06/08/22 07/15/22 midodrine 5 mg tablet 5 mg PO TIDWM 07/08/22 07/15/22 Previous Rx's Medication Instructions Recorded metoprolol tartrate 25 mg tablet 12.5 mg PO BID #30 tabs 01/09/22 amoxicillin 875 mg-potassium 1 tab PO BID #20 tabs 07/12/22 clavulanate 125 mg tablet doxycycline hyclate 100 mg tablet 100 mg PO BID 10 days #20 tabs 07/12/22 Allergies Allergy/AdvReac Type Severity Reaction Status Date / Time No Known Allergies Allergy Verified 07/15/22 09:29 Review of Systems Review of Systems: Pertinent positives and negatives as stated in HPI. 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 Fever of unknown origin Headache HTN (hypertension) Mass of pituitary Pituitary lesion Pituitary macroadenoma Rectosigmoid cancer Renal cell carcinoma Surgical History H/O hernia repair S/P colon resection Family History Family History Mother Parkinsons disease Father ESRD (end stage renal disease) Other No family history of cancer Social History Social History Household Members: Spouse Household Members Other:: 1 Housing: House Are you a primary assurance services manager health care to a significant other at home: No Do you presently have visiting nurse or other home services: No Alcohol intake: never Patient Tobacco Use Status: Former Tobacco user Quit Date: 30 y.o Tobacco use type: Cigarette Years Smoked: 30 years ago Smoked in Last 30 Days: No e-Cigarette/Vaping Use: Never Used Second Hand Smoke Exposure: No Use of substances other than those prescribed or required for medical reasons: No Advance Directives: No Advance Directives Information Provided: Yes service: Yes (1969- ) Current occupational status: employed and retired Cognitive needs: No Hearing needs: No Vision needs: No Physical Exam Vital Signs: Vital Signs: Last Vital Signs Temp 98.7 F 07/22/22 08:22 Pulse 70 07/22/22 08:22 Resp 12 07/22/22 08:22 BP 124/63 07/22/22 08:22 Pulse Ox 96 07/22/22 05:58 O2 Del Method 07/22/22 05:58 BMI result Body Mass Index 18.3 VITAL SIGNS: Reviewed. GENERAL: Chronically ill, cachectic, in no acute distress. HEAD: Normocephalic/atraumatic EYES: PERRLA, EOMI EARS: Ext canals without abnormality OROPHARYNX: no oral lesions noted, posterior pharynx clear NECK: Supple, no adenopathy LUNGS: Normal breath sounds. No adventitious sounds or accessory muscle use. SpO2<96> CARDIOVASCULAR: Regular rate and rhythm without noted murmurs ABDOMEN: Soft, non-tender, non-distended with bowel sounds, function and ostomy with air as soft stool in the bag SKIN: Inspection of the skin reveals no rashes NEUROLOGIC: Alert and oriented x 4. Strength and sensation to light touch were grossly intact x 4, cranial nerves 2-12 are grossly intact. Course Course Course Narrative: I reviewed patient's lab work and there is no evidence of infection, patient has chronic/stable anemia, he does exhibit both low sodium and chloride which is consistent with evidence in conjunction with his low blood pressure and dizziness of poor oral intake suspect poor hydration. He received 1 L of IV fluids and on re-evaluation his blood pressure has significantly improved and patient reports that he feels ?much better?. Viral testing is negative and otherwise chest x-ray and CT of the head show no new/acute findings in the appear to be chronically stable. 0911: I will be repeating the chemistries and suspect this sodium and chloride will significantly improve with the hydration, in addition patient will be ambulated and I am pending results from the case management consultation for palliative/hospice services. Reevaluation(s) Reevaluation #1: Reviewed repeat lab results which demonstrate improvement in sodium and potassium levels, but they still remain low and will administer another 1 L of normal saline, patient is otherwise hemodynamically stable, feeling much better, no evidence of altered mental status. I will repeat the chemistries once again after this 2 L of fluids has infused. Time: 10:09 Reevaluation #2: Dr Cisneros wishes for the patient to be admitted for the hyponatremia and further work-up and evaluation by Nephrology. Time: 10:09 Medications Administered Discontinued Medications Generic Name Dose Route Start Last Admin Trade Name Freq PRN Reason Stop Dose Admin Sodium Chloride 1,000 mls @ 999 mls/hr 07/22/22 07:15 07/22/22 08:01 Ns IV 07/22/22 08:15 999 mls/hr .Q1H1M DMITRY Administration Midodrine 5 mg 07/22/22 07:04 07/22/22 08:00 Midodrine Hcl 5 Mg Tablet PO 07/22/22 07:05 5 mg ONCE ONE Administration Medical Decision Making Medical Decision Making MDM Narrative: 71-year-old male with whom I spent 15 minutes in shared decision making regarding palliative and hospice services for metastatic cancer. We discussed extensively the services that would be available and the lowering of stress levels for both the patient and his regarding care and safety and enjoyment of quality time with each other. Patient states that previously he has declined visiting nurse services but at this time although he expresses difficulty with his decision he is agreeable for additional resources such as palliative or hospice services. The who is at bedside became somewhat tearful because she is feeling significant stress about his safety and her ability to actually help him in the event that he does fall due to their significant size difference. Both the and the (patient) wish to pursue additional resources at this time. Lab work was obtained as well as x-ray and head CT as he had had some falls and is on Eliquis though there were no focal deficits noted. Patient is positive on orthostatics and was given 1 L of fluids as well as his morning dose of midodrine. I placed a case management consult for activation of palliative verses hospice services. 0902: I spoke with Dr. Cisneros at bedside and we discussed palliative versus hospice services and Dr. Cisneros feels very strongly that palliative services should be pursued 1st and agrees that patient would need additional assistance at home. Will repeat BMP, patient is not confused and has no evidence to suggest altered mental status regarding the sodium level that is noted to be 121. Differential Diagnosis Differential Diagnoses: The differential diagnosis associated with the presentation includes Inadequate p.o. intake, symptoms related to underlying metastatic disease, infection, electrolyte abnormalities. Lab Data MDM Lab Attestation statement: I reviewed the patient's lab results. Please see the course Section for further discussion Result Diagrams: 07/22/22 06:51 07/22/22 09:30 Labs: Lab Results 07/22/22 07/22/22 07/22/22 Range/Units 06:51 06:51 06:51 WBC 10.3 (4.8-10.8) X10*3/uL RBC 3.72 L (4.60-5.80) X10*6/uL Hgb 12.1 L (14.0-18.0) g/dl Hct 35.4 L (42.0-52.0) % MCV 95.2 (80.0-98.0) fL MCH 32.5 (27.0-33.0) pg MCHC 34.2 (31.0-36.0) g/dl RDW 14.5 (11.0-16.0) % Plt Count 302 (160-400) X10*3/uL MPV 9.1 L (9.4-12.4) fL Immature Gran % (Auto) 0.7 H (0.0-0.4) % Neut % (Auto) 76.3 H (45-73) % Lymph % (Auto) 12.4 L (20-40) % [place] % (Auto) 8.0 (2-11) % Eos % (Auto) 1.9 (0-4) % Baso % (Auto) 0.7 (0-2) % Lymph # (Auto) 1.3 (1.2-4.9) X10*3/uL [place] # (Auto) 0.8 (0.1-1.2) X10*3/uL Eos # (Auto) 0.2 (0.0-0.4) X10*3/uL Baso # (Auto) 0.1 (0.0-0.2) X10*3/uL Abs Immat Gran (auto) 0.07 H (0.00-0.03) X10*3/uL Absolute Neuts (auto) 7.9 (2.0-8.3) x10*3/uL Absolute Nucleated RBC 0.000 (0.0-0.012) X10*3/uL Nucleated RBC % (auto) 0.0 (0.0-0.2) /100WBC PT (10.0-13.1) SEC INR (0.9-1.1) Sodium (135-145) mmol/L Potassium (3.3-5.1) mmol/L Chloride (96-108) mmol/L Carbon Dioxide (22-29) mmol/L Anion Gap (12-20) BUN (9-16) mg/dL Creatinine (0.5-1.4) mg/dL Estim Creat Clear Calc Estimated GFR Random Glucose (60-115) mg/dL Calcium (8.4-10.2) mg/dL Total Bilirubin (0.0-1.0) mg/dL AST (5-37) U/L ALT (0-40) U/L Alkaline Phosphatase (39-117) U/L Troponin I High Sens (<3.5-35.0) ng/L Total Protein (6.5-8.0) g/dL Albumin (3.5-5.0) g/dL COVID-19 (JAS) Negative (Negative) COVID-19 Clin Com See Note Influenza Type A (JUDY) Negative (Negative) Influenza Type B (JUDY) Negative (Negative) Influenza A & B Note See Note 07/22/22 07/22/22 07/22/22 Range/Units 06:51 06:51 06:52 WBC (4.8-10.8) X10*3/uL RBC (4.60-5.80) X10*6/uL Hgb (14.0-18.0) g/dl Hct (42.0-52.0) % MCV (80.0-98.0) fL MCH (27.0-33.0) pg MCHC (31.0-36.0) g/dl RDW (11.0-16.0) % Plt Count (160-400) X10*3/uL MPV (9.4-12.4) fL Immature Gran % (Auto) (0.0-0.4) % Neut % (Auto) (45-73) % Lymph % (Auto) (20-40) % [place] % (Auto) (2-11) % Eos % (Auto) (0-4) % Baso % (Auto) (0-2) % Lymph # (Auto) (1.2-4.9) X10*3/uL [place] # (Auto) (0.1-1.2) X10*3/uL Eos # (Auto) (0.0-0.4) X10*3/uL Baso # (Auto) (0.0-0.2) X10*3/uL Abs Immat Gran (auto) (0.00-0.03) X10*3/uL Absolute Neuts (auto) (2.0-8.3) x10*3/uL Absolute Nucleated RBC (0.0-0.012) X10*3/uL Nucleated RBC % (auto) (0.0-0.2) /100WBC PT 17.5 H (10.0-13.1) SEC INR 1.5 H (0.9-1.1) Sodium 121 L (135-145) mmol/L Potassium 4.6 (3.3-5.1) mmol/L Chloride 89 L (96-108) mmol/L Carbon Dioxide 25 (22-29) mmol/L Anion Gap 12 (12-20) BUN 6 L (9-16) mg/dL Creatinine 0.61 (0.5-1.4) mg/dL Estim Creat Clear Calc 101.6 Estimated GFR > 60 Random Glucose 77 (60-115) mg/dL Calcium 8.3 L (8.4-10.2) mg/dL Total Bilirubin 0.7 (0.0-1.0) mg/dL AST 25 (5-37) U/L ALT 16 (0-40) U/L Alkaline Phosphatase 118 H (39-117) U/L Troponin I High Sens < 3.5 (<3.5-35.0) ng/L Total Protein 5.2 L (6.5-8.0) g/dL Albumin 3.0 L (3.5-5.0) g/dL COVID-19 (JAS) (Negative) COVID-19 Clin Com Influenza Type A (JUDY) (Negative) Influenza Type B (JUDY) (Negative) Influenza A & B Note 07/22/22 Range/Units 09:30 WBC (4.8-10.8) X10*3/uL RBC (4.60-5.80) X10*6/uL Hgb (14.0-18.0) g/dl Hct (42.0-52.0) % MCV (80.0-98.0) fL MCH (27.0-33.0) pg MCHC (31.0-36.0) g/dl RDW (11.0-16.0) % Plt Count (160-400) X10*3/uL MPV (9.4-12.4) fL Immature Gran % (Auto) (0.0-0.4) % Neut % (Auto) (45-73) % Lymph % (Auto) (20-40) % [place] % (Auto) (2-11) % Eos % (Auto) (0-4) % Baso % (Auto) (0-2) % Lymph # (Auto) (1.2-4.9) X10*3/uL [place] # (Auto) (0.1-1.2) X10*3/uL Eos # (Auto) (0.0-0.4) X10*3/uL Baso # (Auto) (0.0-0.2) X10*3/uL Abs Immat Gran (auto) (0.00-0.03) X10*3/uL Absolute Neuts (auto) (2.0-8.3) x10*3/uL Absolute Nucleated RBC (0.0-0.012) X10*3/uL Nucleated RBC % (auto) (0.0-0.2) /100WBC PT (10.0-13.1) SEC INR (0.9-1.1) Sodium 122 L (135-145) mmol/L Potassium 4.7 (3.3-5.1) mmol/L Chloride 91 L (96-108) mmol/L Carbon Dioxide 26 (22-29) mmol/L Anion Gap 10 L (12-20) BUN 6 L (9-16) mg/dL Creatinine 0.61 (0.5-1.4) mg/dL Estim Creat Clear Calc 101.6 Estimated GFR > 60 Random Glucose 78 (60-115) mg/dL Calcium 7.6 L D (8.4-10.2) mg/dL Total Bilirubin (0.0-1.0) mg/dL AST (5-37) U/L ALT (0-40) U/L Alkaline Phosphatase (39-117) U/L Troponin I High Sens (<3.5-35.0) ng/L Total Protein (6.5-8.0) g/dL Albumin (3.5-5.0) g/dL COVID-19 (JAS) (Negative) COVID-19 Clin Com Influenza Type A (JUYD) (Negative) Influenza Type B (JUDY) (Negative) Influenza A & B Note Independent Interpretation I performed an independent interpretation of an: EKG Interpretation: Normal sinus rhythm, HR-81, no STEMI, RI/QRS/QTC are within normal limits Radiology Impression Radiologist Impression: My interpretation is in agreement with radiology's impression of imaging studies. Independent Historian Clinical information obtained from an independent historian. History obtained from or confirmed by: Spouse Spouse was involved in history taking. External Record Review External record reviewed: Inpatient record, Outpatient record and Prior outpatient labs Chronic Conditions Patient?s care impacted by: Cancer and Other Hypotension Social Determinants Patient?s care significantly limited by Social Determinants of Health including: Other Social Determinant of Health Critical Care Time Critical Care Time Critical Care Time: Yes Total Critical Care Time: 60 Attestation: I personally attest to this time spent taking care of the patient. Discharge Plan Discharge Clinical Impression: Hyponatremia, Dehydration, Hypotension Patient Disposition: Admitted As Inpatient Prescriptions: No Action midodrine 5 mg tablet 5 mg PO TIDWM amoxicillin-pot clavulanate 875-125 mg tablet 1 tab PO BID Qty: 20 0RF doxycycline hyclate 100 mg tablet 100 mg PO BID 10 Days Qty: 20 0RF loperamide 2 mg Capsule 2 mg PO Q4H PRN (Reason: Diarrhea) Rx Instructions: administer after each loose stool until symptoms controlled; do not exceed 8 mg per 24 hrs metoprolol tartrate 25 mg tablet 12.5 mg PO BID Qty: 30 0RF ascorbate calcium (vitamin C) 500 mg tablet 500 mg PO DAILY ferrous sulfate 325 mg (65 mg iron) tablet 325 mg PO DAILY Eliquis 5 mg tablet 5 mg PO BID
[2022-07-22 07:06] LABS: INTERNATIONAL NORM RATIO 1.5 (0.9-1.1); Prothrombin Time 17.5 SEC (10.0-13.1)
[2022-07-22 07:15] LABS: COVID-19 Test Negative (Negative); IDNOW Serial# 16C4AD1C; IDNOW Serial# BCCEAD1C; Influenza A Negative (Negative); Influenza B2 Negative (Negative)
[2022-07-22 07:22] LABS: Troponin-I High Sensitivity < 3.5 ng/L (<3.5-35.0)
[2022-07-22 07:25] LABS: Alanine Aminotransferase 16 U/L (0-40); Alkaline Phosphatase 118 U/L (39-117); Anion Gap 12 (12-20); Aspartate Amino Transferase 25 U/L (5-37); Bilirubin Total 0.7 mg/dL (0.0-1.0); Blood Urea Nitrogen 6 mg/dL (9-16); Calcium 8.3 mg/dL (8.4-10.2); Carbon Dioxide 25 mmol/L (22-29); Chloride 89 mmol/L (96-108); Creatinine Clr Calc Pharmacy 101.6; Estimated Glomerular Filt Rate > 60; Glucose Random 77 mg/dL (60-115); Potassium 4.6 mmol/L (3.3-5.1); Sodium 121 mmol/L (135-145); Total Protein 5.2 g/dL (6.5-8.0)
[2022-07-22] MEDS: Midodrine HCl 5 MG TABLET PO (08:00)
[2022-07-22] MEDS: 0.9 % Sodium Chloride 1,000 ML 999 ML IV ×2 (08:01→11:29)
--- NOTE | 2022-07-22 08:13 | PC.NURSE ---
pt received in bed A/O x 3, son at bedside. Patient made comfortable, medicated, fluids started. Plan is to d/c patient home with hospice care.
[2022-07-22 09:58] LABS: Anion Gap 10 (12-20); Blood Urea Nitrogen 6 mg/dL (9-16); Calcium 7.6 mg/dL (8.4-10.2); Carbon Dioxide 26 mmol/L (22-29); Chloride 91 mmol/L (96-108); Creatinine Clr Calc Pharmacy 101.6; Estimated Glomerular Filt Rate > 60; Glucose Random 78 mg/dL (60-115); Potassium 4.7 mmol/L (3.3-5.1); Sodium 122 mmol/L (135-145)
--- NOTE | 2022-07-22 10:33 | MHC.CM.ED ---
Addendum entered by Chapis Munson 07/22/22 10:36: Received notification from Dr Ariza that patient may be admitted. Original Note: Received case management consult from Dr Ariza. Patient came to the ER due to dizziness and weakness. Patient requesting hospice referral. Received notification from Dr Ariza that Dr Cisneros feels patient will need palliative care. Patient has [employer] for insurance. Referral broadcasted in [facility] to see which agency can provide palliative care that are contracted with patient's insurance. Continue to monitor for d/c needs.
[2022-07-22 10:34] LABS: Magnesium 1.5 mg/dL (1.6-2.6)
--- NOTE | 2022-07-22 10:43 | PHA.MEDREC ---
Pharmacy Consult ? Medication Reconciliation Pharmacy has completed the medication reconciliation. Patient and son at bedside to confirm meds.
--- NOTE | 2022-07-22 11:23 | PM.IMHP ---
History of Present Illness Date of Service: 07/22/22 Chief Complaint: falls The patient is a 71 year old male with of PMH of Renal Cell Ca and Colon ca with lung mets + possible pituitary mets vs primary pituitary adenoma, orthostatic hypotension, PE on Eliquis who presents to the ED after sustaining several falls over the preceeding 1 week. The patient reports his falls were all mechanical in nature and denies any seizure or syncopal episodes. He reports that he has lost sensation in his b/l legs (reports due to chemo) and feels that this is the reason for his falls. Upno further questioning, he reports a loss of appetite for at least the last 10 days. States that he was feeling his appetite returning slowly (since March) but that his last good meal was on 07/12. States he has lost his sense of taste since he had COVID ealier this year. He denies any nausea, vomiting, diarrhea or abdominal pain. He denies any fevers or chills. Denies any symptoms. On arrival to the ED, the patient was noted to be hyponatremic at 121. 1L of NS was given and his SNa improved to 122. He was hypotensive in the 90s (has a history of orthostasis). He will now be admitted for further treatment of symptomatic hyponatremia. 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 Fever of unknown origin Headache HTN (hypertension) Mass of pituitary Pituitary lesion Pituitary macroadenoma Rectosigmoid cancer Renal cell carcinoma Family History Mother Parkinsons disease Father ESRD (end stage renal disease) Other No family history of cancer Surgical History H/O hernia repair S/P colon resection Social History Household Members: Spouse Household Members Other:: 1 Housing: House Are you a primary medicare sales executive to a significant other at home: No Do you presently have visiting nurse or other home services: No Alcohol intake: never Patient Tobacco Use Status: Former Tobacco user Quit Date: 30 y.o Tobacco use type: Cigarette Years Smoked: 30 years ago Smoked in Last 30 Days: No e-Cigarette/Vaping Use: Never Used Second Hand Smoke Exposure: No Use of substances other than those prescribed or required for medical reasons: No Advance Directives: No Advance Directives Information Provided: Yes service: Yes ( ) Current occupational status: employed and retired Cognitive needs: No Hearing needs: No Vision needs: No Meds Allergies Allergy/AdvReac Type Severity Reaction Status Date / Time No Known Allergies Allergy Verified 07/15/22 09:29 Active Medications: Current Medications Magnesium Sulfate/Dextrose (Magnesium Sulfate/D5w) 1 gm in 100 mls @ 100 mls/hr IV ONCE ONE Stop: 07/22/22 11:50 Pharmacy Consult (Consult Rx Perform Med Rec) 1 each MISCELLANE ONCE PRN PRN Reason: Consult order Home Medications Medication Instructions Recorded Confirmed Last Taken Type ascorbate calcium (vitamin C) 500 500 mg PO DAILY 10/09/21 07/22/22 07/21/22 History mg tablet ferrous sulfate 325 mg (65 mg 325 mg PO DAILY 10/09/21 07/22/22 07/21/22 History iron) tablet apixaban 5 mg tablet (Eliquis) 5 mg PO BID 06/08/22 07/22/22 07/21/22 History midodrine 5 mg tablet 5 mg PO TIDWM@0900,1300,1800 07/08/22 07/22/22 07/21/22 History Physical Exam Vital Signs and Narrative: Vital Signs: Last Vital Signs Temp 98.3 F 07/22/22 10:31 Pulse 70 07/22/22 10:31 Resp 13 07/22/22 10:31 BP 127/65 07/22/22 10:31 Pulse Ox 96 07/22/22 10:31 O2 Del Method 07/22/22 10:31 BMI result Body Mass Index 18.3 Const: Other: Constitutional - Awake and Alert, No apparent distress; appears chronically ill Eyes - PERRLA, EOMI Cardiovascular - S1S2, RRR, No edema Respiratory - Normal lung expansion, Normal respiratory effort, No respiratory distress, CTA bilaterally Gastrointestinal - NT / ND; +BS; No rebound or guarding; colostomy on the left side - No CVA tenderness Extremities - no calf tenderness bilaterally, no swelling Musculoskeletal - Normal inspection, normal ROM Skin - Warm/Dry Neurological - Alert & oriented x3, No focal deficit Psychological - Appropriate affect Results Labs CBC and Chem 7: 07/22/22 06:51 07/22/22 09:30 Labs: Laboratory Results - last 24 hr 07/22/22 07/22/22 07/22/22 06:51 06:51 06:51 MCV 95.2 MCH 32.5 MCHC 34.2 RDW 14.5 Plt Count 302 MPV 9.1 L Immature Gran % (Auto) 0.7 H Neut % (Auto) 76.3 H Lymph % (Auto) 12.4 L [place] % (Auto) 8.0 Eos % (Auto) 1.9 Baso % (Auto) 0.7 Lymph # (Auto) 1.3 [place] # (Auto) 0.8 Eos # (Auto) 0.2 Baso # (Auto) 0.1 Abs Immat Gran (auto) 0.07 H Absolute Neuts (auto) 7.9 Absolute Nucleated RBC 0.000 Nucleated RBC % (auto) 0.0 PT INR Anion Gap Estim Creat Clear Calc Estimated GFR Random Glucose Calcium Magnesium Total Bilirubin AST ALT Alkaline Phosphatase Troponin I High Sens Total Protein Albumin COVID-19 (JAS) Negative COVID-19 Clin Com See Note Influenza Type A (JUDY) Negative Influenza Type B (JUDY) Negative Influenza A & B Note See Note 07/22/22 07/22/22 07/22/22 06:51 06:51 06:52 MCV MCH MCHC RDW Plt Count MPV Immature Gran % (Auto) Neut % (Auto) Lymph % (Auto) [place] % (Auto) Eos % (Auto) Baso % (Auto) Lymph # (Auto) [place] # (Auto) Eos # (Auto) Baso # (Auto) Abs Immat Gran (auto) Absolute Neuts (auto) Absolute Nucleated RBC Nucleated RBC % (auto) PT 17.5 H INR 1.5 H Anion Gap 12 Estim Creat Clear Calc 101.6 Estimated GFR > 60 Random Glucose 77 Calcium 8.3 L Magnesium Total Bilirubin 0.7 AST 25 ALT 16 Alkaline Phosphatase 118 H Troponin I High Sens < 3.5 Total Protein 5.2 L Albumin 3.0 L COVID-19 (JAS) COVID-19 Clin Com Influenza Type A (JUDY) Influenza Type B (JUDY) Influenza A & B Note 07/22/22 09:30 MCV MCH MCHC RDW Plt Count MPV Immature Gran % (Auto) Neut % (Auto) Lymph % (Auto) [place] % (Auto) Eos % (Auto) Baso % (Auto) Lymph # (Auto) [place] # (Auto) Eos # (Auto) Baso # (Auto) Abs Immat Gran (auto) Absolute Neuts (auto) Absolute Nucleated RBC Nucleated RBC % (auto) PT INR Anion Gap 10 L Estim Creat Clear Calc 101.6 Estimated GFR > 60 Random Glucose 78 Calcium 7.6 L D Magnesium 1.5 L Total Bilirubin AST ALT Alkaline Phosphatase Troponin I High Sens Total Protein Albumin COVID-19 (JAS) COVID-19 Clin Com Influenza Type A (JUDY) Influenza Type B (JUDY) Influenza A & B Note Imaging Radiologist's Impressions: Impressions Head CT 07/22/22 07:20 IMPRESSION: No acute findings. Stable pituitary lesion. Chest X-Ray 07/22/22 07:50 IMPRESSION: No evidence for acute disease in the chest. Assessment and Plan (1) Hyponatremia: Status: Acute Plan This is a 71 year old male with a PMH of Renal Cell Ca, Colon Ca with mets to Lungs + possible mets vs primary pitituary adenoma who presents to the hospital with genrealized weakness and multiple falls over the preceding 1 week. His work up reveals hyponatremia and is the likely cause of his weakness. He will be admitted for further treatment. 1. Hyponatremia suspected at least partially hypovoluemic given his low presenting BP as well as history of decreased oral intake; However, he does have a known pitituary mass. Check urine SNa + Urine Osm Consult nephrology Given 2L total in the ED; will repeat SNa around 2pm and every 6 hours or sooner there after; Intake and output 2. Generalized weakness with mulitple falls suspected due to #1 eventual PT eval 3. Orthostatic hypotension continue midodrine 4. History of PE continue eliquis 5. Pituitary mass following with rad onc and endocrine as outpatient Full Code DVT pptx, Eliquis HCP on file Time Spent With Patient Time: Total time managing care of this patient today ____ minutes. Quality Stroke Does the patient have a stroke diagnosis?: No VTE Prior VTE?: No VTE Risk Level:: Medical - moderate - high VTE Device Contraindication: Treatment Not Indicated VTE Drug Contraindication: N/A - Med Ordered
[2022-07-22] MEDS: Magnesium Sulfate/D5W 1 GM/100 ML PIGGYBACK IV (11:50)
--- NOTE | 2022-07-22 13:02 | P.CONNP_ITS ---
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 Fever of unknown origin Headache HTN (hypertension) Mass of pituitary Pituitary lesion Pituitary macroadenoma Rectosigmoid cancer Renal cell carcinoma Family History Family History Mother Parkinsons disease Father ESRD (end stage renal disease) Other No family history of cancer Surgical History Surgical History H/O hernia repair S/P colon resection Social History Social History Household Members: Spouse Household Members Other:: 1 Housing: House Are you a primary body care manager to a significant other at home: No Do you presently have visiting nurse or other home services: No Alcohol intake: never Patient Tobacco Use Status: Former Tobacco user Quit Date: 30 y.o Tobacco use type: Cigarette Years Smoked: 30 years ago Smoked in Last 30 Days: No e-Cigarette/Vaping Use: Never Used Second Hand Smoke Exposure: No Use of substances other than those prescribed or required for medical reasons: No Advance Directives: No Advance Directives Information Provided: Yes service: Yes (1969- ) Current occupational status: employed and retired Cognitive needs: No Hearing needs: No Vision needs: No Meds Allergies Allergy/AdvReac Type Severity Reaction Status Date / Time No Known Allergies Allergy Verified 07/15/22 09:29 Active Medications: Current Medications Acetaminophen (Acetaminophen 325 Mg Tablet) 650 mg PO Q6H PRN PRN Reason: Pain, Mild (Pain Scale 1-3) Apixaban (Apixaban 5 Mg Tablet) 5 mg PO BID [facility] Ascorbic Acid (Ascorbic Acid 500 Mg Tablet) 500 mg PO DAILY [facility] Ferrous Sulfate (Ferrous Sulfate 324 Mg Tablet.) 324 mg PO DAILY [facility] Metoprolol Tartrate (Metoprolol Tartrate 12.5 Mg Halftab) 12.5 mg PO BID [facility]; Protocol Midodrine (Midodrine Hcl 5 Mg Tablet) 5 mg PO TIDWM@0900,1300,1800 [facility] Pharmacy Consult (Consult Rx Perform Med Rec) 1 each MISCELLANE ONCE PRN PRN Reason: Consult order Sodium Chloride (0.9 % Sodium Chloride Flush 3 Ml Syringe) 3 ml IVFLUSH QSHIFT [facility] Home Medications Medication Instructions Recorded Confirmed Last Taken Type ascorbate calcium (vitamin C) 500 500 mg PO DAILY 10/09/21 07/22/22 07/21/22 History mg tablet ferrous sulfate 325 mg (65 mg 325 mg PO DAILY 10/09/21 07/22/22 07/21/22 History iron) tablet apixaban 5 mg tablet (Eliquis) 5 mg PO BID 06/08/22 07/22/22 07/21/22 History midodrine 5 mg tablet 5 mg PO TIDWM@0900,1300,1800 07/08/22 07/22/22 07/21/22 History Physical Exam Vital Signs: Last Vital Signs Temp 98.3 F 07/22/22 10:31 Pulse 70 07/22/22 10:31 Resp 13 07/22/22 10:31 BP 127/65 07/22/22 10:31 Pulse Ox 96 07/22/22 10:31 O2 Del Method 07/22/22 10:31 BMI result Body Mass Index 18.3 Results Lab Results Result Diagrams: 07/22/22 06:51 07/22/22 09:30 Lab results: Chemistry 07/22/22 07/22/22 06:52 09:30 Sodium 121 L 122 L Potassium 4.6 4.7 Carbon Dioxide 25 26 BUN 6 L 6 L Creatinine 0.61 0.61 Calcium 8.3 L 7.6 L D Hematology 07/22/22 06:51 WBC 10.3 Hgb 12.1 L Plt Count 302 Assessment and Plan (1) Hyponatremia: Status: Acute 71 year old male with of PMH of Renal Cell Ca and Colon ca with lung mets + possible pituitary mets vs primary pituitary adenoma 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 Procedures Date of Service Date of Service: 07/22/22
[2022-07-22 13:17] LABS: Osmolality Urine 398 mosm/kg (373-1093)
[2022-07-22] MEDS: Apixaban 5 MG TABLET PO ×2 (13:20→22:24)
[2022-07-22 19:45] LABS: Sodium 125 mmol/L (135-145)
[2022-07-22] MEDS: Metoprolol Tartrate 12.5 MG HALFTAB PO (22:24)
[2022-07-23] VITALS: BP 158/77; PULSE 68; RESP 17; TEMP 36.4; O2SAT 96
[2022-07-23 00:43] LABS: Sodium 128 mmol/L (135-145)
[2022-07-23] MEDS: 0.9 % Sodium Chloride Flush 3 ML SYRINGE IVFLUSH (01:36)
[2022-07-23 01:56] VITALS: BP 145/66; PULSE 66; RESP 14; TEMP 36.9; O2SAT 96
--- NOTE | 2022-07-23 01:58 | MHC.EDTECH ---
pt is resting he used the urinal, vitals were taken ,and blood was drawn, he is all set resting
--- NOTE | 2022-07-23 04:29 | PC.NURSE ---
this rn entered pt room. pt needed assistance getting out of bed to use urinal at bedside. this rn assisted patient in change pants as personal pants became soiled with urine. this rn assisted pt with emptying colostomy bag. pt repositioned back into bed at this time. pt provided with fresh gown and warm blanket. pt had no new requests at this time
[2022-07-23 05:32] VITALS: BP 123/63; PULSE 78; RESP 11; TEMP 37; O2SAT 96
--- NOTE | 2022-07-23 05:34 | MHC.EDTECH ---
pt is resting quietly vitals were taken he emptied his own colostomy bag he also used the urinal, he is resting quietly
[2022-07-23 07:29] LABS: Anion Gap 11 (12-20); Blood Urea Nitrogen 6 mg/dL (9-16); Calcium 8.1 mg/dL (8.4-10.2); Carbon Dioxide 26 mmol/L (22-29); Chloride 96 mmol/L (96-108); Creatinine Clr Calc Pharmacy 121.5; Estimated Glomerular Filt Rate > 60; Glucose Random 73 mg/dL (60-115); Potassium 4.5 mmol/L (3.3-5.1); Sodium 128 mmol/L (135-145)
[2022-07-23] MEDS: Metoprolol Tartrate 12.5 MG HALFTAB PO ×2 (09:09→20:35)
[2022-07-23] MEDS: Ferrous Sulfate 324 MG TABLET.DR PO (09:10)
[2022-07-23] MEDS: Ascorbic Acid 500 MG TABLET PO (09:10)
[2022-07-23] MEDS: Apixaban 5 MG TABLET PO ×2 (09:10→20:34)
[2022-07-23 09:12] VITALS: BP 120/71; PULSE 91; RESP 16; TEMP 36.8; O2SAT 95
--- NOTE | 2022-07-23 10:00 | PC.NURSE ---
patient a/ox4 . yumiko . heart rate regular at 68 beat per minute . breathing even and unlabored .skin warm and dry . patient very thin . Abdomen soft . patient has a colostomy on left side of abdomen , stoma is beefy red . patient has own supplies from home to change . changing it today . patient is aware of plan of care .
[2022-07-23] MEDS: Midodrine HCl 5 MG TABLET PO ×3 (10:11→18:48)
[2022-07-23 11:23] VITALS: BP 110/68; PULSE 68; RESP 16; O2SAT 96
[2022-07-23] MEDS: Urea 15 GM POWDER PO (11:45)
--- NOTE | 2022-07-23 12:31 | PM.PNNEP ---
Subjective Subjective Date of Service: 07/23/22 Physical Exam Vital Signs: Vital Signs: Last Vital Signs Temp 98.3 F 07/23/22 09:12 Pulse 68 07/23/22 11:23 Resp 16 07/23/22 11:23 BP 110/68 07/23/22 11:23 Pulse Ox 96 07/23/22 11:23 O2 Del Method 07/23/22 11:23 BMI result Body Mass Index 18.3 Const: Other: Constitutional - Awake and Alert, No apparent distress; appears chronically ill Eyes - PERRLA, EOMI Cardiovascular - S1S2, RRR, No edema Respiratory - Normal lung expansion, Normal respiratory effort, No respiratory distress, CTA bilaterally Gastrointestinal - NT / ND; +BS; No rebound or guarding; colostomy on the left side - No CVA tenderness Extremities - no calf tenderness bilaterally, no swelling Musculoskeletal - Normal inspection, normal ROM Skin - Warm/Dry Neurological - Alert & oriented x3, No focal deficit Psychological - Appropriate affect Objective Data Labs CBC & Chem 7: 07/22/22 06:51 07/23/22 06:36 Labs: Laboratory Results - last 24 hr 07/22/22 07/22/22 07/22/22 12:56 12:56 12:56 Sodium Cancelled Potassium Chloride Carbon Dioxide Anion Gap BUN Creatinine Estim Creat Clear Calc Estimated GFR Random Glucose Calcium Urine Osmolality 398 Ur Random Sodium 91.0 07/22/22 07/23/22 07/23/22 19:21 00:23 06:36 Sodium 125 L 128 L 128 L Potassium 4.5 Chloride 96 Carbon Dioxide 26 Anion Gap 11 L BUN 6 L Creatinine 0.51 Estim Creat Clear Calc 121.5 Estimated GFR > 60 Random Glucose 73 Calcium 8.1 L D Urine Osmolality Ur Random Sodium Procedures Date of Service Date of Service: 07/23/22 Assessment & Plan Assessment and plan (1) Hyponatremia: Status: Acute Assessment and Plan: 71 year old male with of PMH of Renal Cell Ca and Colon ca with lung mets + possible pituitary mets vs primary pituitary adenoma 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 Progress Note: Quality Stroke Does the patient have a stroke diagnosis?: No
--- NOTE | 2022-07-23 12:33 | MHC.CM.PN ---
CM MET WITH PT AT BEDSIDE. LIVES WITH AND ADULT CHILDREN IN A SINGLE FAMILY HOME. NO PREVIOUS SERVICES OR DME. PT NOW AGREEABLE TO PALLIATIVE [facility] SERVICES WITH [facility] ON [place]. + HCP, WILL REQUEST BRING IN COPY. +COVID VAX X3. PCP JOAN HOUSER. DP: HOME WITH NEW PALLIATIVE SERVICES WITH [facility]. FAMILY WILL TRANSPORT. CM WILL CONTINUE TO FOLLOW FOR CHANGE OF PLAN.
--- NOTE | 2022-07-23 13:25 | HO.PM.IMPN ---
Subjective Subjective Date of Service: 07/23/22 Interval History: [place] follow up for hyponatremia Interval history: no complaints. Na improved to 128 Review of Systems Review of Systems: Yes all other systems are reviewed and are negative Physical Exam Vital Signs: Vital Signs: Last Vital Signs Temp 98.3 F 07/23/22 09:12 Pulse 68 07/23/22 11:23 Resp 16 07/23/22 11:23 BP 110/68 07/23/22 11:23 Pulse Ox 96 07/23/22 11:23 O2 Del Method 07/23/22 11:23 BMI result Body Mass Index 18.3 Constitutional - Awake and Alert, No apparent distress Eyes - PERRLA, EOMI Cardiovascular - S1S2, RRR, No edema Respiratory - Normal lung expansion, Normal respiratory effort, No respiratory distress, CTA bilaterally Gastrointestinal - NT / ND; +BS; No rebound or guarding Extremities - no calf tenderness bilaterally, no swelling Skin - Warm/Dry Neurological - Alert & oriented x3 Psychological - Appropriate affect Objective Data Active Medications Acetaminophen (Acetaminophen 325 Mg Tablet) 650 mg PO Q6H PRN PRN Reason: Pain, Mild (Pain Scale 1-3) Apixaban (Apixaban 5 Mg Tablet) 5 mg PO BID [facility] Last Admin: 07/23/22 09:10 Dose: 5 mg Documented By: KARRI Ascorbic Acid (Ascorbic Acid 500 Mg Tablet) 500 mg PO DAILY [facility] Last Admin: 07/23/22 09:10 Dose: 500 mg Documented By: KARRI Ferrous Sulfate (Ferrous Sulfate 324 Mg Tablet.Dr) 324 mg PO DAILY [facility] Last Admin: 07/23/22 09:10 Dose: 324 mg Documented By: KARRI Metoprolol Tartrate (Metoprolol Tartrate 12.5 Mg Halftab) 12.5 mg PO BID [facility]; Protocol Last Admin: 07/23/22 09:09 Dose: 12.5 mg Documented By: KARRI Midodrine (Midodrine Hcl 5 Mg Tablet) 5 mg PO TIDWM@0900,1300,1800 [facility] Last Admin: 07/23/22 13:06 Dose: 5 mg Documented By: KARRI Pharmacy Consult (Consult Rx Perform Med Rec) 1 each MISCELLANE ONCE PRN PRN Reason: Consult order Sodium Chloride (0.9 % Sodium Chloride Flush 3 Ml Syringe) 3 ml IVFLUSH QSHIFT [facility] Last Admin: 07/23/22 09:10 Dose: Not Given Documented By: KARRI Non-Admin Reason: Med Not Available Urea (Urea 15 Gm Powder) 15 gm PO DAILY [facility] Last Admin: 07/23/22 11:45 Dose: 15 gm Documented By: KARRI Labs CBC & Chem 7: 07/22/22 06:51 07/23/22 06:36 Labs: Laboratory Results - last 24 hr 07/23/22 06:36 Anion Gap 11 L Estim Creat Clear Calc 121.5 Estimated GFR > 60 Random Glucose 73 Calcium 8.1 L D Assessment and Plan (1) Hyponatremia: Status: Acute Plan This is a 71 year old male with a PMH of Renal Cell Ca, Colon Ca with mets to Lungs + possible mets vs primary pitituary adenoma who presents to the hospital with genrealized weakness and multiple falls over the preceding 1 week. His work up reveals hyponatremia and is the likely cause of his weakness. He will be admitted for further treatment. 1. Hyponatremia- improving 128 suspected at least partially hypovoluemic given his low presenting BP as well as history of decreased oral intake; However, he does have a known pitituary mass. Serum/urine osm normal Urea 15 mg daily per Nephrology Follow sodium Intake and output 2. Generalized weakness with multiple falls suspected due to #1 PT ordered 3. Orthostatic hypotension continue midodrine 4. History of PE continue eliquis 5. Pituitary mass following with rad onc and endocrine as outpatient Full Code DVT pptx, Eliquis HCP on file Patient requires inpatient stay for management hyponatremia with IVF and close monitoring of sodium levels along with expert consultation Quality Stroke Does the patient have a stroke diagnosis?: No VTE Prior VTE?: No VTE Risk Level:: Medical - moderate - high VTE Device Contraindication: Treatment Not Indicated VTE Drug Contraindication: N/A - Med Ordered
[2022-07-23 18:53] LABS: Sodium 128 mmol/L (135-145)
[2022-07-23 19:28] VITALS: BP 125/68; PULSE 67; RESP 16; TEMP 36.6; O2SAT 97
--- NOTE | 2022-07-23 19:40 | PC.NURSE ---
assumed care of patient at 1900 - patient resting comfortably on stretcher - dinner eaten, vital signs stable, in no apparent distress. will continue to monitor
--- NOTE | 2022-07-23 20:07 | PC.NURSE ---
report given to Fausto PARISI in overflow unit
--- NOTE | 2022-07-23 21:47 | PC.NURSE ---
Pt sleeping, respiration regular.
--- NOTE | 2022-07-23 22:20 | MHC.EDTECH ---
pt came from the ER , cup of water was given, along with a urinal and a hat for him to empty his colostomy bag he is resting he requested door close
--- NOTE | 2022-07-23 23:30 | PC.NURSE ---
Pt sleeping, respirations regular.
--- NOTE | 2022-07-24 02:19 | PC.NURSE ---
Pt sleeping respirations regular.
--- NOTE | 2022-07-24 03:13 | MHC.EDTECH ---
check on pt he is sleeping he voided his urinal was emptied
--- NOTE | 2022-07-24 04:13 | PC.NURSE ---
Pt sleeping respirations regular.
[2022-07-24 05:16] VITALS: BP 138/77; PULSE 77; RESP 17; TEMP 36.3; O2SAT 98
--- NOTE | 2022-07-24 05:53 | MHC.EDTECH ---
last rounding of the pt, urinal emptied and a pitcher of water was given no issues throughout the night
--- NOTE | 2022-07-24 05:53 | PC.NURSE ---
Pt sleeping respirations regular. Pt in no apparent distress.
[2022-07-24 07:37] LABS: Anion Gap 14 (12-20); Blood Urea Nitrogen 10 mg/dL (9-16); Calcium 7.8 mg/dL (8.4-10.2); Carbon Dioxide 20 mmol/L (22-29); Chloride 97 mmol/L (96-108); Creatinine Clr Calc Pharmacy 116.9; Estimated Glomerular Filt Rate > 60; Glucose Random 72 mg/dL (60-115); Potassium 4.5 mmol/L (3.3-5.1); Sodium 126 mmol/L (135-145)
[2022-07-24 07:45] VITALS: BP 113/67; PULSE 83; RESP 16; TEMP 36.6; O2SAT 97
[2022-07-24] MEDS: Metoprolol Tartrate 12.5 MG HALFTAB PO ×2 (09:02→20:51)
[2022-07-24] MEDS: Ascorbic Acid 500 MG TABLET PO (09:02)
[2022-07-24] MEDS: Midodrine HCl 5 MG TABLET PO ×2 (09:03→17:59)
[2022-07-24] MEDS: Apixaban 5 MG TABLET PO ×2 (09:03→20:51)
[2022-07-24] MEDS: 0.9 % Sodium Chloride Flush 3 ML SYRINGE IVFLUSH (09:03)
[2022-07-24] MEDS: Ferrous Sulfate 324 MG TABLET.DR PO (09:03)
[2022-07-24] MEDS: Sodium Chloride Tab 1 GM TABLET PO (10:11)
[2022-07-24 12:07] VITALS: BP 119/64; PULSE 61; RESP 15; TEMP 36.5; O2SAT 97
--- NOTE | 2022-07-24 12:49 | PM.PNNEP ---
Subjective Subjective Date of Service: 07/24/22 Interval history: seen and examined no complaints Physical Exam Vital Signs: Vital Signs: Last Vital Signs Temp 97.7 F 07/24/22 12:07 Pulse 61 07/24/22 12:07 Resp 15 07/24/22 12:07 BP 119/64 07/24/22 12:07 Pulse Ox 97 07/24/22 12:07 O2 Del Method 07/24/22 12:07 BMI result Body Mass Index 18.3 Const: General: comfortable and no acute distress HEENT: Head: Yes normocephalic and Yes atraumatic Neck: Neck: Yes supple Resp: Auscultation: diminished lung sounds Cardio: Heart sounds: S1 normal heart sound present and S2 normal heart sound present GI: Palpation (GI): Soft to palpation and nontender Extrem: General: Yes no pedal edema Objective Data Labs CBC & Chem 7: 07/22/22 06:51 07/24/22 07:16 Labs: Laboratory Results - last 24 hr 07/23/22 07/24/22 18:29 07:16 Sodium 128 L 126 L Potassium 4.5 Chloride 97 Carbon Dioxide 20 L Anion Gap 14 BUN 10 Creatinine 0.53 Estim Creat Clear Calc 116.9 Estimated GFR > 60 Random Glucose 72 D Calcium 7.8 L Procedures Date of Service Date of Service: 07/24/22 Assessment & Plan Assessment and plan (1) Hyponatremia: Status: Acute Plan Sna lower hypotonic euvolemic hyponbatremia high Sasha c/w SIADH underlying brain tumor REC urea 15 g bid restrict free water intake follow electrolytes Time Spent With Patient Time: Total time managing care of this patient today ____ minutes. Progress Note: Quality Stroke Does the patient have a stroke diagnosis?: No
[2022-07-24 14:53] LABS: Anion Gap 13 (12-20); Blood Urea Nitrogen 8 mg/dL (9-16); Calcium 8.4 mg/dL (8.4-10.2); Carbon Dioxide 26 mmol/L (22-29); Chloride 94 mmol/L (96-108); Creatinine Clr Calc Pharmacy 112.7; Estimated Glomerular Filt Rate > 60; Glucose Random 83 mg/dL (60-115); Sodium 129 mmol/L (135-145)
--- NOTE | 2022-07-24 15:00 | HO.PM.IMPN ---
Subjective Subjective Date of Service: 07/24/22 Interval History: Seen and evaluated this morning Sodium level decreased to 126 Denies any complaints Review of Systems Review of Systems: Yes all other systems are reviewed and are negative Physical Exam Vital Signs: Vital Signs: Last Vital Signs Temp 97.7 F 07/24/22 12:07 Pulse 61 07/24/22 12:07 Resp 15 07/24/22 12:07 BP 119/64 07/24/22 12:07 Pulse Ox 97 07/24/22 12:07 O2 Del Method 07/24/22 12:07 BMI result Body Mass Index 18.3 Const: Other: Constitutional - Awake and Alert, No apparent distress; appears chronically ill Eyes - PERRLA, EOMI Cardiovascular - S1S2, RRR, No edema Respiratory - Normal lung expansion, Normal respiratory effort, No respiratory distress, CTA bilaterally Gastrointestinal - NT / ND; +BS; No rebound or guarding; colostomy on the left side - No CVA tenderness Extremities - no calf tenderness bilaterally, no swelling Musculoskeletal - Normal inspection, normal ROM Skin - Warm/Dry Neurological - Alert & oriented x3, No focal deficit Psychological - Appropriate affect Objective Data Active Medications Acetaminophen (Acetaminophen 325 Mg Tablet) 650 mg PO Q6H PRN PRN Reason: Pain, Mild (Pain Scale 1-3) Apixaban (Apixaban 5 Mg Tablet) 5 mg PO BID [facility] Last Admin: 07/24/22 09:03 Dose: 5 mg Documented By: MARLENY Ascorbic Acid (Ascorbic Acid 500 Mg Tablet) 500 mg PO DAILY [facility] Last Admin: 07/24/22 09:02 Dose: 500 mg Documented By: MARLENY Ferrous Sulfate (Ferrous Sulfate 324 Mg Tablet.) 324 mg PO DAILY [facility] Last Admin: 07/24/22 09:03 Dose: 324 mg Documented By: MARLENY Metoprolol Tartrate (Metoprolol Tartrate 12.5 Mg Halftab) 12.5 mg PO BID [facility]; Protocol Last Admin: 07/24/22 09:02 Dose: 12.5 mg Documented By: MARLENY Midodrine (Midodrine Hcl 5 Mg Tablet) 5 mg PO TIDWM@0900,1300,1800 [facility] Last Admin: 07/24/22 13:50 Dose: Not Given Documented By: MARLENY Non-Admin Reason: Patient Asleep Pharmacy Consult (Consult Rx Perform Med Rec) 1 each MISCELLANE ONCE PRN PRN Reason: Consult order Sodium Chloride (0.9 % Sodium Chloride Flush 3 Ml Syringe) 3 ml IVFLUSH QSHIFT [facility] Last Admin: 07/24/22 14:59 Dose: Not Given Documented By: MARLENY Non-Admin Reason: Previously Administered Urea (Urea 15 Gm Powder) 15 gm PO DAILY [facility] Last Admin: 07/23/22 11:45 Dose: 15 gm Documented By: KARRI Labs CBC & Chem 7: 07/22/22 06:51 07/24/22 14:17 Labs: Laboratory Results - last 24 hr 07/24/22 07/24/22 07:16 14:17 Anion Gap 14 13 Estim Creat Clear Calc 116.9 112.7 Estimated GFR > 60 > 60 Random Glucose 72 D 83 Calcium 7.8 L 8.4 D Assessment and Plan (1) Hyponatremia: Status: Acute (2) Pituitary macroadenoma: Status: Acute Plan This is a 71 year old male with a PMH of Renal Cell Ca, Colon Ca with mets to Lungs + possible mets vs primary pitituary adenoma who presents to the hospital with genrealized weakness and multiple falls over the preceding 1 week. His work up reveals hyponatremia and is the likely cause of his weakness. He will be admitted for further treatment. 1. 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 per Nephrology Fluid restriction Follow sodium Intake and output 2. Generalized weakness with multiple falls suspected due to hyponatremia PT ordered 3. Orthostatic hypotension continue midodrine 4. History of PE continue eliquis 5. Pituitary mass following with rad onc and endocrine as outpatient Full Code DVT pptx, Eliquis HCP on file Patient requires inpatient stay for management hyponatremia with IVF and close monitoring of sodium levels along with expert consultation Time Spent With Patient Time: Total time managing care of this patient today ____ minutes. Quality Stroke Does the patient have a stroke diagnosis?: No VTE Prior VTE?: No VTE Risk Level:: Medical - moderate - high VTE Device Contraindication: Treatment Not Indicated VTE Drug Contraindication: N/A - Med Ordered
[2022-07-24 17:37] VITALS: BP 111/65; PULSE 66; RESP 18; TEMP 36.4; O2SAT 95
[2022-07-24 20:00] VITALS: BP 129/69; PULSE 77; RESP 16; TEMP 36.7; O2SAT 97
[2022-07-24] MEDS: Urea 15 GM POWDER PO (20:51)
[2022-07-25] MEDS: 0.9 % Sodium Chloride Flush 3 ML SYRINGE IVFLUSH ×2 (00:17→08:40)
[2022-07-25 03:22] VITALS: BP 142/65; PULSE 72; RESP 16; TEMP 37.1; O2SAT 96
[2022-07-25 06:19] LABS: Anion Gap 12 (12-20); Blood Urea Nitrogen 17 mg/dL (9-16); Calcium 8.6 mg/dL (8.4-10.2); Carbon Dioxide 27 mmol/L (22-29); Chloride 96 mmol/L (96-108); Creatinine Clr Calc Pharmacy 101.8; Estimated Glomerular Filt Rate > 60; Glucose Random 89 mg/dL (60-115); Potassium 4.2 mmol/L (3.3-5.1); Sodium 131 mmol/L (135-145)
[2022-07-25 08:00] VITALS: BP 130/61; PULSE 73; RESP 18; TEMP 36.8; O2SAT 96
[2022-07-25] MEDS: Metoprolol Tartrate 12.5 MG HALFTAB PO (08:39)
[2022-07-25] MEDS: Ferrous Sulfate 324 MG TABLET.DR PO (08:39)
[2022-07-25] MEDS: Ascorbic Acid 500 MG TABLET PO (08:39)
[2022-07-25] MEDS: Urea 15 GM POWDER PO (08:39)
[2022-07-25] MEDS: Apixaban 5 MG TABLET PO (08:39)
[2022-07-25] MEDS: Midodrine HCl 5 MG TABLET PO ×2 (08:41→12:10)
--- NOTE | 2022-07-25 11:02 | PM.PNNEP ---
Subjective Subjective Date of Service: 07/25/22 Interval history: Seen and evaluated this morning no complaints Physical Exam Vital Signs: Vital Signs: Last Vital Signs Temp 98.3 F 07/25/22 08:00 Pulse 73 07/25/22 08:00 Resp 18 07/25/22 08:00 BP 130/61 07/25/22 08:00 Pulse Ox 96 07/25/22 08:00 O2 Del Method 07/25/22 08:00 BMI result Body Mass Index 18.3 Const: General: comfortable and no acute distress HEENT: Head: Yes normocephalic and Yes atraumatic Neck: Neck: Yes supple Resp: Auscultation: diminished lung sounds Cardio: Heart sounds: S1 normal heart sound present and S2 normal heart sound present GI: Palpation (GI): Soft to palpation and nontender Extrem: General: Yes no pedal edema Objective Data Labs CBC & Chem 7: 07/22/22 06:51 07/25/22 05:34 Labs: Laboratory Results - last 24 hr 07/24/22 07/25/22 14:17 05:34 Sodium 129 L 131 L Potassium 4.0 4.2 Chloride 94 L 96 Carbon Dioxide 26 27 Anion Gap 13 12 BUN 8 L 17 H Creatinine 0.55 0.60 Estim Creat Clear Calc 112.7 101.8 Estimated GFR > 60 > 60 Random Glucose 83 89 Calcium 8.4 D 8.6 Procedures Date of Service Date of Service: 07/25/22 Assessment & Plan Assessment and plan (1) Hyponatremia: Status: Acute Plan Sna improving hypotonic euvolemic hyponbatremia high Sasha c/w SIADH underlying brain tumor REC continue urea 15 g bid restrict free water intake follow electrolytes Time Spent With Patient Time: Total time managing care of this patient today ____ minutes. Progress Note: Quality Stroke Does the patient have a stroke diagnosis?: No
--- NOTE | 2022-07-25 11:11 | P.DS_ITS ---
DS: Providers Provider Date of Service: 07/25/22 Date of admission: 07/22/22 11:20 Primary care physician: JACKIE Meraz Consults: 07/22/22 11:27 Consult to Nephrology Routine Consulting Provider: [facility] Reason for consultation: symptomatic hyponatremia, known pituitary mass DS: Diagnosis Discharge Diagnosis (1) Hyponatremia: Status: Acute (2) Dehydration: Status: Acute (3) Hypotension: Status: Acute (4) Pituitary macroadenoma: Status: Acute (5) Frequent falls: Status: Acute DS: Summary Hospital Course Hospital Course: Admission note HPI The patient is a 71 year old male with of PMH of Renal Cell Ca and Colon ca with lung mets + possible pituitary mets vs primary pituitary adenoma, orthostatic hypotension, PE on Eliquis who presents to the ED after sustaining several falls over the preceeding 1 week. The patient reports his falls were all mechanical in nature and denies any seizure or syncopal episodes. He reports that he has lost sensation in his b/l legs (reports due to chemo) and feels that this is the reason for his falls. Upno further questioning, he reports a loss of appetite for at least the last 10 days. States that he was feeling his appetite returning slowly (since March) but that his last good meal was on 07/12. States he has lost his sense of taste since he had COVID ealier this year. He denies any nausea, vomiting, diarrhea or abdominal pain. He denies any fevers or chills. Denies any symptoms. On arrival to the ED, the patient was noted to be hyponatremic at 121. 1L of NS was given and his SNa improved to 122. He was hypotensive in the 90s (has a history of orthostasis). He will now be admitted for further treatment of symptomatic hyponatremia. Hospital course The patient was admitted to the hospital for evaluation of hyponatremia. Found to have sodium of 121 at time of presentation with symptoms of weakness and recurrent falls. Started on IV fluid replacement for dehydration with addition of urea by nephrology team who foot the patient during the hospital stay. Sodium started to improve slowly and urea dose was increased to 15 mg twice daily with good response as sodium level reached 131. Patient was able to participate with physical therapy team who recommended home PT. resume his current dose of 5 mg midodrine t.i.d.. He had a follow-up with Radiology Oncology and endocrine as outpatient for the pituitary mass. Discontinue Augmentin and doxycycline Start urea 15 g twice daily To repeat blood work next week To follow-up with Dr. Low from Nephrology office as outpatient, Time Spent with Patient Time attestation: Total time managing care of this patient today ____ minutes. Discharge coordination time: Greater than 30 minutes Quality: Safe Use of Opioids Does Pt have an Active Cancer Diagnosis on the Problem List?: No Quality: Stroke Does the patient have a stroke diagnosis?: No Physical Exam Vital Signs: Vital Signs: Last Vital Signs Temp 98.3 F 07/25/22 08:00 Pulse 73 07/25/22 08:00 Resp 18 07/25/22 08:00 BP 130/61 07/25/22 08:00 Pulse Ox 96 07/25/22 08:00 O2 Del Method 07/25/22 08:00 BMI result Body Mass Index 18.3 Const: Other: Constitutional - Awake and Alert, No apparent distress; appears chronically ill Eyes - PERRLA, EOMI Cardiovascular - S1S2, RRR, No edema Respiratory - Normal lung expansion, Normal respiratory effort, No respiratory distress, CTA bilaterally Gastrointestinal - NT / ND; +BS; No rebound or guarding; colostomy on the left side - No CVA tenderness Extremities - no calf tenderness bilaterally, no swelling Musculoskeletal - Normal inspection, normal ROM Skin - Warm/Dry Neurological - Alert & oriented x3, No focal deficit Psychological - Appropriate affect DS: Data Data Completed and Pending Completed studies during hospitalization [Text1]: Procedures Bypass Sigmoid Colon to Cutaneous, Open Approach (09/02/21) Drainage of Right Kidney, Percutaneous Approach, Diagnostic (09/02/21) Excision of Bladder, Open Approach (09/02/21) Excision of Rectum, Open Approach (09/02/21) Excision of Right Kidney, Percutaneous Approach, Diagnostic (09/02/21) Excision of Sigmoid Colon, Open Approach (09/02/21) Excision of Sigmoid Colon, Via Natural or Artificial Opening Endoscopic, Diagnostic (09/02/21) Release Peritoneum, Open Approach (12/30/21) Removal of Drainage Device from Peritoneal Cavity, Open Approach (12/30/21) Removal of Infusion Device from Great Vessel, Open Approach (07/10/22) Removal of Tunneled Vascular Access Device from Trunk Subcutaneous Tissue and F ascia, Open Approach (07/10/22) Repair Bladder, Open Approach (09/02/21) Labs on day of discharge: Laboratory Results - last 24 hr 07/24/22 07/25/22 14:17 05:34 Sodium 129 L 131 L Potassium 4.0 4.2 Chloride 94 L 96 Carbon Dioxide 26 27 Anion Gap 13 12 BUN 8 L 17 H Creatinine 0.55 0.60 Estim Creat Clear Calc 112.7 101.8 Estimated GFR > 60 > 60 Random Glucose 83 89 Calcium 8.[address] scan - head: Radiologist's impression: ITS Impressions Head CT 07/22/22 07:20 IMPRESSION: No acute findings. Stable pituitary lesion. Chest X-Ray 07/22/22 07:50 IMPRESSION: No evidence for acute disease in the chest. Discharge Plan Discharge Anticipated Discharge Date/Time: 07/25/22 10:53 Patient Disposition: Home Health Service Discharge Diagnosis: Hyponatremia Postural hypotension Referrals: Jose James [employer]- [Primary Care Provider] - 1 Week Discharge Medications: New urea (bulk) 100 % Powder See Rx Instructions .ROUTE .COMPLEX 30 Days Qty: 1000 2RF Rx Instructions: 15 g twice daily. Continued midodrine 5 mg tablet 5 mg PO TIDWM@0900,1300,1800 metoprolol tartrate 25 mg tablet 12.5 mg PO BID Qty: 30 0RF ascorbate calcium (vitamin C) 500 mg tablet 500 mg PO DAILY ferrous sulfate 325 mg (65 mg iron) tablet 325 mg PO DAILY Eliquis 5 mg tablet 5 mg PO BID Discontinued amoxicillin-pot clavulanate 875-125 mg tablet 1 tab PO BID Qty: 20 0RF Rx Instructions: 07/22/22 - Last day of Tx doxycycline hyclate 100 mg tablet 100 mg PO BID 10 Days Qty: 20 0RF Rx Instructions: 07/22/22 - last day of Tx Discharge Orders: Discharge Order (Routine); Ordered 07/25/22 Ordered By: Cain Terry Diet: Advance to usual diet Activity on Discharge: As tolerated Stand Alone Forms: Patient Portal Discharge page Other Ambulatory Orders: Basic Metabolic Panel (Routine) Timeframe: 5 Days Facility: [facility], [place] - Location: Laboratory Ordered By: Cain Terry Care Plan Goals: Read below Health Concerns: Read below Plan of Treatment: Read below Assessment: You were admitted to the hospital for evaluation of increased weakness and fall s. Found to have an evidence of low sodium level that was treated with IV fluid and urea as you were evaluated by kidney doctor during the hospital stay with improvement in your sodium level and blood pressure. You were able to participate with physical therapy who recommended home therapy. Discontinue Augmentin and doxycycline Start urea 15 g twice daily To repeat blood work next week To follow-up with Dr. Low from Nephrology office as outpatient,
--- NOTE | 2022-07-25 11:13 | W.MHC.F2F ---
Service Date Service Date: 07/25/22 Encounter Date of encounter: 07/25/22 Reasons for Services Signs and symptoms assessed: falls, orthostatic hypotension Reason for [facility]: teach disease management Reason for physical therapy: home safety and mobility and therapeutic exercises Homebound: Leaving the home is medically contraindicated at this time without the asist of a device and/or another person due th the listed conditions above and below. Reason homebound: unsteady gait / fall risk Certification: Based on the above findings, I certify that this patient is confined to the home and needs intermittent [facility] care, physical therapy and/or speech therapy, or continues to need occupational therapy. The patient is under my care, and I have initiated the establishment of the plan of care. The patient will be followed by a physician who will periodically review the plan of care. Time Spent With Patient Time: Total time managing care of this patient today ____ minutes.
--- NOTE | 2022-07-25 11:23 | MHC.CM.PN ---
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
== END 2022-07-25 13:36 | disposition home health service (06) | DRG 644 ==
LOC: HO.ED 10:17 → HO.EDOVER 07-23 04:12 → HO.S3 07-24 16:27
PROVIDERS: Physician Assistant; Admitting Provider Family Medicine; Emergency Provider Student in an Organized Health Care Education/Training Program; PCP Nurse Practitioner Family; Visit Provider Student in an Organized Health Care Education/Training Program
DX: E22.2 Syndrome of inappropriate secretion of antidiuretic hormone (principal); C79.31 Secondary malignant neoplasm of brain; D35.2 Benign neoplasm of pituitary gland; R43.8 Other disturbances of smell and taste; I95.1 Orthostatic hypotension; U09.9 Post COVID-19 condition, unspecified; E86.0 Dehydration; R29.6 Repeated falls; Z91.81 History of falling; Z86.711 Personal history of pulmonary embolism; Z85.528 Personal history of other malignant neoplasm of kidney; Z85.038 Personal history of other malignant neoplasm of large intestine; Z87.891 Personal history of nicotine dependence; Z79.01 Long term (current) use of anticoagulants; Z79.899 Other long term (current) drug therapy
CPT/HCPCS: 36415; 70450; 71045; 80048; 80053; 83735; 83935; 84295; 84300; 84484; 85025; 85610; 87502; 87635; 93005; 96360; 96361; 97161; 99285; J3475

== ENCOUNTER 2022-07-28 08:02 | Outpatient (REF) | payer OTHER, SELFPAY ==
--- NOTE | ~2022-07-28 | PE_ITS ---
EXAMINATION: Fluorine-18 FDG PET/CT Scan CLINICAL INDICATION: Subsequent treatment management. Malignant neoplasm of rectum. Patient reports Port-A-Cath infection 2 weeks ago. PROCEDURE: 56 minutes following the intravenous administration of 16.1 mCi of fluorine 18 FDG, images from the base of the skull to the mid thighs were obtained using a combined PET/CT scanner with CT scan based attenuation correction. No oral contrast was administered. No intravenous contrast was administered. Transverse, coronal, sagittal, and volume reconstruction projections were obtained. The patient's blood glucose as determined by a finger stick, was 82 mg/dl immediately prior to injection. Total CT exam dose-length product 227.66 mGy-cm * These CT images were obtained using dose optimization techniques as appropriate, variously including the following: Automated exposure control * Adjustment of mA and/or kV according to patient size (this includes techniques or standardized protocols for targeted exams where dose is matched to indication/reason for exam; i.e. extremities or head) * Use of iterative reconstruction technique COMPARISON: Prior PET/CT scans dated 04/07/2022 and 10/21/2021 are available for comparison. FINDINGS: (Slice numbers described in this report are numbered superiorly to inferiorly with slice #1 in the head) NECK AND VISUALIZED HEAD: There is persistence of the previously described FDG avid focus in the sella turcica. This is predominantly now to the left of midline and shows SUVmax of 9.5, slice 1/267 and may not be entirely included in the axial [id number] of the study. Previously this showed SUVmax 11.9 on 04/07/2022. There continue to be some erosions of the left side of the sella. No additional foci of abnormal FDG activity are present in the neck or visualized head. All of the other activity appears physiological. There is no cervical lymphadenopathy. THORAX: There is a new groundglass opacity not present on the 04/07/2022 study posteriorly in the right upper lobe and this is mildly FDG avid showing SUVmax 2.6, slice 80/267. This opacity abuts the major interlobar fissure and extends from the origin of the minor fissure posteriorly to the posterolateral pleura involving approximately 7 cm of length along the major fissure, best visualized on the sagittal projections. There is an additional new FDG avid discrete groundglass opacity with some solid components abutting the posterior pleura of the superior segment of the right lower lobe showing SUVmax 3.0, slice 95/267. There is weak FDG activity associated with the right lower lobe nodule which is unchanged in size from 04/07/2022 measuring 0.9 cm and showing SUVmax 1.6, slice 112/267 versus SUVmax 0.9 previously. A 1.1 cm right middle lobe nodule also shows weak FDG activity, SUVmax 1.8, slice 97/267 and appears unchanged from 04/07/2022. A 0.8 cm medial left lower lobe nodule is unchanged from 04/07/2022 and shows no abnormal FDG activity but is probably too small to be characterized on the FDG PET images. No additional foci of increased FDG activity are present within the chest. There is some apical scarring more prominently on the right with no associated abnormal FDG activity, unchanged from prior studies. Some additional scarring or atelectasis is present in the lung bases bilaterally, more prominently on the right and this shows only very weak FDG activity, but this was also not present on prior studies. There is no pleural or pericardial fluid, or pneumothorax. There is a small focus of mildly increased FDG activity in the cutaneous soft tissues anterior to the right second rib with some subtle soft tissue thickening present at this site on the corresponding CT images. This shows SUVmax 2.6, slice 71/267 and was not present on the 04/07/2022 study.. ABDOMEN AND PELVIS: There is a right lower pole renal mass which has FDG avidity similar to the adjacent renal parenchyma and is not easily from the latter on either the FDG PET images or these nondiagnostic CT images performed without intravenous contrast. It is similar in appearance to the 04/07/[address] scan. There is a 2.4 cm stable hypodense cyst in the upper pole of the left kidney and this is markedly FDG photopenic. The kidneys are otherwise unremarkable. The liver, gallbladder and spleen are unremarkable. The adrenal glands and pancreas are unremarkable. There is an anastomotic suture line in the rectosigmoid colon with no associated abnormal FDG activity. The pelvic organs are otherwise unremarkable. There is some ureteral reflux of FDG activity from the urinary bladder into the distal left ureter and there is a small focus of retained urinary activity in the mid right ureter at the upper sacral level. There is mild diffuse FDG activity throughout the gastrointestinal tract without a suspicious focal component and likely physiological. There is diverticulosis without evidence of diverticulitis. A left lower quadrant colostomy is in place with minimal FDG activity present at the skin surface. On the CT images this is not significantly changed from the prior 04/07/2022 study but the intensity of FDG activity at the skin surface is significantly less on the current study. The hollow viscera are otherwise unremarkable. MUSCULOSKELETAL: No foci of abnormal FDG activity are present in the osseous structures. Other than the previously described erosions of the left lateral aspect of the sella turcica, there are no suspicious sclerotic or lytic lesions visualized. There are degenerative changes in the spine, most severely in the mid and lower thoracic spine. VASCULAR: Diffuse vascular calcifications including coronary are noted. PET/PET CT fusion skull to thigh IMPRESSION: 1. Several mildly FDG avid groundglass opacities are present in the right lung as described above, and these have developed since the 04/07/[address] scan[address] appearance suggests these are inflammatory in etiology. These may be due to resolving pneumonitis or could be postradiation therapy in etiology. Clinical correlation is recommended and these may be better characterized with a diagnostic CT scan of the chest. 2. Several pulmonary nodules continue to be visualized as described above and these are similar in appearance to the prior 04/07/[address] scan and show only weak FDG activity which is nonspecific. All of the pulmonary nodules are much less intensely FDG avid when compared to the earlier prior PET CT scan dated 10/21/2021. This represents a significant metabolic response to therapy of these nodules. 3. There is persistent FDG activity in an erosive pituitary lesion as described above. This continues to be suspicious for a metastasis or primary pituitary malignancy. 4. A right lower pole renal mass appears stable and is FDG isointense to the adjacent renal parenchyma. Although nonspecific, this is suspicious for a renal cell carcinoma. 5. Mild FDG activity associated with some cutaneous thickening in the right upper anterior chest wall is likely related to the recent Port-A-Cath infection described by the patient. 6. No other abnormalities suspicious for metastatic or other malignant lesions are noted. 7. Diffuse vascular calcifications including coronary. .
== END 2022-07-28 08:03 | disposition home or self-care (01) ==
LOC: HO.PET 08:02
PROVIDERS: PCP Nurse Practitioner Family; Visit Provider Internal Medicine
DX: Z13.89 Encounter for screening for other disorder (principal)

== ENCOUNTER 2022-08-03 08:04 | Outpatient (REF) | payer OTHER, SELFPAY ==
[2022-08-05 01:09] LABS: Adrenocorticotropic Hormone 9 pg/mL (6-50)
[2022-08-05 03:49] LABS: Cortisol 30 Minute 21.9 mcg/dL; Cortisol 30 Minute Time 1015; Cortisol 60 Minute 19.3 mcg/dL; Cortisol 60 Minute Time 3 1050; Cortisol Baseline 14.1 mcg/dL
== END 2022-08-03 08:05 | disposition home or self-care (01) ==
LOC: HO.MDS 08:04
PROVIDERS: Visit Provider Internal Medicine
DX: E27.40 Unspecified adrenocortical insufficiency (principal)
CPT/HCPCS: 36415; 82024; 82533; 96374; J0834

== ENCOUNTER → 2022-08-10 14:32 | Outpatient (BNVA) | payer OTHER, SELFPAY | PROVIDERS: PCP Nurse Practitioner Family; Visit Provider Internal Medicine | DX: Z13.89 Encounter for screening for other disorder (principal) ==

== ENCOUNTER → 2022-08-11 08:52 | Outpatient (BNVA) | payer OTHER, SELFPAY | PROVIDERS: PCP Nurse Practitioner Family; Visit Provider Internal Medicine | DX: I47.20 Ventricular tachycardia, unspecified (principal) ==

== ENCOUNTER → 2022-10-30 11:33 | Outpatient (BNVA) | payer OTHER, SELFPAY | PROVIDERS: PCP Nurse Practitioner Family; Visit Provider Urology | DX: Z13.89 Encounter for screening for other disorder (principal) ==

== ENCOUNTER 2022-11-06 11:51 | Outpatient (REF) | payer OTHER, SELFPAY ==
[2022-11-06 13:55] LABS: Free T4 (Free Thyroxine) 0.88 ng/dL (0.71-1.85); Thyroid Stimulating Hormone 0.98 uIU/mL (0.32-4.0)
[2022-11-08 09:53] LABS: Triiodothyronine T3 Total 80 ng/dL (76-181)
== END 2022-11-06 11:52 | disposition home or self-care (01) ==
LOC: HO.LAB 11:51
PROVIDERS: PCP Nurse Practitioner Family; Visit Provider Internal Medicine
DX: E03.8 Other specified hypothyroidism (principal)
CPT/HCPCS: 36415; 84439; 84443; 84480

== ENCOUNTER 2022-11-17 06:57 | Day surgery (SDC) | payer OTHER, SELFPAY ==
[2022-11-17] VITALS (9 sets, daily range): BP systolic 112–167; BP diastolic 65–86; PULSE 57–77; RESP 11–18; TEMP 36.1–36.6; O2SAT 94–100; BMI 17.9
--- NOTE | ~2022-11-17 | IR_ITS ---
PROCEDURE: IR INSERTION OF TUNNEL CATHETER IR US GUIDANCE FOR VENOUS ACCESS CLINICAL INFORMATION: Colorectal and renal cell cancer. COMPARISON: None available. TECHNIQUE: Procedure and risk and benefits including bleeding, infection and pneumothorax were discussed with the patient and informed consent was obtained. All elements of maximal sterile barrier technique followed including use of cap, mask, sterile gown, sterile gloves, a sterile full body drape and hand hygiene. Also followed skin preparation with 2% chlorhexidine for cutaneous antisepsis, and sterile ultrasound preparation with sterile gel and probe cover when applicable. The right neck and upper chest were prepped and draped in the usual sterile fashion. The skin and soft tissues were anesthetized with 1% lidocaine plain. Using ultrasound guidance and a 5 Slovenian micropuncture system right internal jugular vein access was obtained. Over an .018 wire, a 5 Slovenian dilator was positioned in the SVC. The skin and soft tissues of the right upper anterior chest were anesthetized with 1% lidocaine plain. A small incision was made. A subcutaneous pocket was created. A subcutaneous tunnel from the chest to the neck incision was anesthetized with 1% lidocaine plain. Using a tunneler, a 6.6 Slovenian single-lumen catheter was tunneled from the chest to the neck incision. The catheter was attached to the port. The port and catheter were flushed. The port was positioned in the subcutaneous pocket and secured using two 2-0 nonabsorbable sutures. An .035 guidewire was advanced through the 5 Slovenian dilator into the IVC. The 5 Slovenian dilator was exchanged for a 7 Slovenian peel-away sheath. Using bent wire technique, catheter length was estimated. Catheter length was 24 cm. The catheter was fed through the peel-away sheath centrally into the chest. The neck incision was closed using a 4-0 absorbable subcuticular suture. The chest incision was closed using four 3-0 absorbable interrupted sutures followed by a running 4-0 absorbable subcuticular suture. The port was accessed and had good return, flushed easily and was instilled with 5 mL heparin 100 unit per mL solution. Real-time ultrasound guidance was used to document vein patency and for needle entry. A formal ultrasound picture was recorded. Fluoroscopy time 0.2 minutes. DAP 13 cGy per centimeter squared. One saved fluoroscopic image. Conscious sedation was provided by a registered nurse under my direct supervision with continuous hemodynamic monitoring. Patient received Versed 1 mg and fentanyl 50 mcg intravenously during the procedure. [id number] total sedation time was 34 minutes. FINDINGS: There is a right internal jugular 6.6 Slovenian single-lumen Dignity Port-A-Cath with tip projecting over the SVC. IR/IR us guide venous access IMPRESSION: Right internal jugular 6.6 Slovenian single-lumen dignity Port-A-Cath placement.
[2022-11-17 07:33] LABS: Eos%MD 1.9 %; Hematocrit 36.4 % (42.0-52.0); Hemoglobin 11.7 g/dl (14.0-18.0); IG%MD 0.2 %; Lymph%MD 37.3 %; Mean Corpuscular HGB Conc 32.1 g/dl (31.0-36.0); Mean Corpuscular Hemoglobin 33.5 pg (27.0-33.0); Mean Corpuscular Volume 104.3 fL (80.0-98.0); Mean Platelet Volume 10.3 fL (9.4-12.4); Mono%MD 11.8 %; Neut%MD 47.8 %; Platelet Count 197 X10*3/uL (160-400); Red Blood Count 3.49 X10*6/uL (4.60-5.80); Red Cell Distribution Width 21.1 % (11.0-16.0); White Blood Count 5.2 X10*3/uL (4.8-10.8)
[2022-11-17 07:42] LABS: INTERNATIONAL NORM RATIO 0.9 (0.9-1.1); Prothrombin Time 10.4 SEC (10.0-13.1)
[2022-11-17 07:45] LABS: Partial Thromboplastin Time 35.8 SEC (26.0-36.4)
[2022-11-17 08:03] LABS: Anion Gap 17 (12-20); Blood Urea Nitrogen 6 mg/dL (9-16); Carbon Dioxide 17 mmol/L (22-29); Chloride 103 mmol/L (96-108); Creatinine Clr Calc Pharmacy 92.2; Estimated Glomerular Filt Rate > 60; Potassium 4.9 mmol/L (3.3-5.1); Sodium 132 mmol/L (135-145)
[2022-11-17 08:19] LABS: Band Neutrophils Percent 0 % (3-5); Eosinophils Absolute Manual 0.1 X10*3/uL (0.0-0.4); Eosinophils Percent Manual 2 % (0-4); Lymphocytes Percent Manual 38 % (20-40); Monocytes Absolute Manual 0.5 X10*3/uL (0.1-1.2); Monocytes Percent Manual 9 % (2-11); Neutrophils Absolute Manual 2.7 X10*3/uL (2.0-8.3); Neutrophils Percent Manual 51 % (45-73)
[2022-11-17 08:20] LABS: Platelet Estimate NORMAL (NORMAL); Platelet Morphology Comment NORMAL; RBC Morphology NOTED
[2022-11-17 08:21] LABS: Burr Cells 2+ (3-5) /OIF; Macrocytosis 1+ (5-14) /OIF; Schistocytes 1+ (0-2) /OIF
[2022-11-17] MEDS: 0.9 % Sodium Chloride 1,000 ML 500 ML IVCONT (10:25)
== END 2022-11-17 12:49 | disposition home or self-care (01) ==
LOC: HO.SSS 06:58
PROVIDERS: PCP Nurse Practitioner Family; Visit Provider Radiology Diagnostic Radiology
DX: Z45.2 Encounter for adjustment and management of vascular access device (principal); C20 Malignant neoplasm of rectum; C77.2 Secondary and unspecified malignant neoplasm of intra-abdominal lymph nodes; I10 Essential (primary) hypertension; I26.99 Other pulmonary embolism without acute cor pulmonale; Z79.01 Long term (current) use of anticoagulants; Z79.899 Other long term (current) drug therapy; Z86.16 Personal history of COVID-19
CPT/HCPCS: 36415; 36561; 76937; 80051; 82565; 84520; 85007; 85027; 85610; 85730; 99152; 99153; C1769; C1788; J0690; J1642; J2250; J3010

== ENCOUNTER → 2022-11-30 09:52 | Outpatient (BNVA) | payer OTHER, SELFPAY | PROVIDERS: PCP Internal Medicine; Visit Provider Internal Medicine ==

== ENCOUNTER 2022-12-04 07:54 | Outpatient (REF) | payer OTHER, SELFPAY | END 2022-12-04 07:55 | disposition home or self-care (01) | LOC: HO.LAB 07:54 | PROVIDERS: Visit Provider Internal Medicine | DX: Z13.89 Encounter for screening for other disorder (principal) ==

== ENCOUNTER 2022-12-04 08:02 | Outpatient (REF) | payer MEDICARE, OTHER, SELFPAY ==
[2022-12-06 18:43] LABS: Cortisol 30 Minute 8.8 mcg/dL; Cortisol 30 Minute Time 1000; Cortisol 60 Minute 7.2 mcg/dL; Cortisol 60 Minute Time 3 1030; Cortisol Baseline 1.3 mcg/dL
[2022-12-11 14:09] LABS: Adrenocorticotropic Hormone <5 pg/mL (6-50)
== END 2022-12-04 08:03 | disposition home or self-care (01) ==
LOC: HO.MDS 08:02
PROVIDERS: Visit Provider Internal Medicine
DX: D35.2 Benign neoplasm of pituitary gland (principal)
CPT/HCPCS: 36415; 82024; 82533; 96374; J0834; J1642

== ENCOUNTER 2022-12-07 09:07 | Outpatient (REF) | payer OTHER, MEDICARE, SELFPAY ==
[2022-12-07 09:26] LABS: MANUAL DIFF FLAG NO
[2022-12-07 09:32] LABS: Basophils Percent Auto 0.2 % (0-2); Eosinophils Percent Auto 0.6 % (0-4); Hematocrit 36.4 % (42.0-52.0); Hemoglobin 11.6 g/dl (14.0-18.0); Imm Gran Abs Auto 0.01 X10*3/uL (0.00-0.03); Imm Gran Pct Auto 0.2 % (0.0-0.4); Lymphocytes Absolute Auto 2.1 X10*3/uL (1.2-4.9); Lymphocytes Percent Auto 32.5 % (20-40); Mean Corpuscular HGB Conc 31.9 g/dl (31.0-36.0); Mean Corpuscular Hemoglobin 33.1 pg (27.0-33.0); Monocytes Absolute Auto 0.6 X10*3/uL (0.1-1.2); Monocytes Percent Auto 9.1 % (2-11); Neutrophils Absolute Auto 3.7 x10*3/uL (2.0-8.3); Neutrophils Percent Auto 57.4 % (45-73); Platelet Count 188 X10*3/uL (160-400); Red Cell Distribution Width 17.6 % (11.0-16.0); White Blood Count 6.5 X10*3/uL (4.8-10.8)
[2022-12-07 09:51] LABS: Anion Gap 13 (12-20); Blood Urea Nitrogen 12 mg/dL (9-16); Carbon Dioxide 27 mmol/L (22-29); Chloride 101 mmol/L (96-108); Estimated Glomerular Filt Rate > 60; Potassium 3.9 mmol/L (3.3-5.1); Sodium 137 mmol/L (135-145)
[2022-12-07 09:54] LABS: Alanine Aminotransferase 23 U/L (0-40); Albumin Level 3.6 g/dL (3.5-5.0); Alkaline Phosphatase 106 U/L (39-117); Anion Gap 13 (12-20); Aspartate Amino Transferase 36 U/L (5-37); Bilirubin Total 0.6 mg/dL (0.0-1.0); Blood Urea Nitrogen 12 mg/dL (9-16); Calcium 9.1 mg/dL (8.4-10.2); Carbon Dioxide 27 mmol/L (22-29); Chloride 101 mmol/L (96-108); Estimated Glomerular Filt Rate > 60; Glucose Random 85 mg/dL (60-115); Sodium 137 mmol/L (135-145); Total Protein 5.6 g/dL (6.5-8.0)
[2022-12-12 13:28] LABS: Calcitonin <2 pg/mL (<=10)
== END 2022-12-07 09:08 | disposition home or self-care (01) ==
LOC: HO.LAB 09:07
PROVIDERS: Absent Provider Internal Medicine; PCP Internal Medicine; Visit Provider Internal Medicine Hypertension Specialist
DX: C19 Malignant neoplasm of rectosigmoid junction (principal); E87.1 Hypo-osmolality and hyponatremia
CPT/HCPCS: 36415; 80051; 80053; 82308; 82565; 84520; 85025

== ENCOUNTER 2023-01-08 08:05 | Outpatient (REF) | payer MEDICARE, SELFPAY ==
[2023-01-11 06:53] LABS: Cortisol 60 Minute 22.1 mcg/dL; Cortisol Baseline 9.1 mcg/dL
[2023-01-16 15:38] LABS: Adrenocorticotropic Hormone 28 pg/mL (6-50)
== END 2023-01-08 08:06 | disposition home or self-care (01) ==
LOC: HO.MDS 08:05
PROVIDERS: Visit Provider Internal Medicine
DX: E27.40 Unspecified adrenocortical insufficiency (principal)
CPT/HCPCS: 36415; 82024; 82533; 96374; J0834; J1642

== ENCOUNTER 2023-02-27 08:05 | Outpatient (REF) | payer OTHER, SELFPAY ==
[2023-02-27 08:37] LABS: MANUAL DIFF FLAG NO
[2023-02-27 08:53] LABS: Basophils Percent Auto 0.1 % (0-2); Hematocrit 32.1 % (42.0-52.0); Hemoglobin 10.5 g/dl (14.0-18.0); Imm Gran Abs Auto 0.09 X10*3/uL (0.00-0.03); Imm Gran Pct Auto 0.7 % (0.0-0.4); Lymphocytes Absolute Auto 0.6 X10*3/uL (1.2-4.9); Lymphocytes Percent Auto 4.5 % (20-40); Mean Corpuscular HGB Conc 32.7 g/dl (31.0-36.0); Mean Corpuscular Hemoglobin 33.7 pg (27.0-33.0); Mean Corpuscular Volume 102.9 fL (80.0-98.0); Mean Platelet Volume 9.4 fL (9.4-12.4); Monocytes Absolute Auto 0.6 X10*3/uL (0.1-1.2); Neutrophils Absolute Auto 11.1 x10*3/uL (2.0-8.3); Neutrophils Percent Auto 89.7 % (45-73); Platelet Count 180 X10*3/uL (160-400); Red Blood Count 3.12 X10*6/uL (4.60-5.80); Red Cell Distribution Width 18.9 % (11.0-16.0); White Blood Count 12.3 X10*3/uL (4.8-10.8)
[2023-02-27 09:19] LABS: Alanine Aminotransferase 29 U/L (0-40); Albumin Level 3.2 g/dL (3.5-5.0); Alkaline Phosphatase 93 U/L (39-117); Anion Gap 14 (12-20); Aspartate Amino Transferase 38 U/L (5-37); Bilirubin Total 0.6 mg/dL (0.0-1.0); Blood Urea Nitrogen 16 mg/dL (9-16); Calcium 8.9 mg/dL (8.4-10.2); Carbon Dioxide 21 mmol/L (22-29); Chloride 104 mmol/L (96-108); Estimated Glomerular Filt Rate > 60; Glucose Random 120 mg/dL (60-115); Potassium 4.1 mmol/L (3.3-5.1); Sodium 135 mmol/L (135-145); Total Protein 5.5 g/dL (6.5-8.0)
[2023-02-27 09:35] LABS: Thyroid Stimulating Hormone 0.28 uIU/mL (0.32-4.0)
[2023-02-27 09:36] LABS: Cortisol Random < 1.0 ug/dL; Free T4 (Free Thyroxine) 0.71 ng/dL (0.71-1.85)
[2023-02-27 10:31] LABS: Osmolality, Serum 281 mosm/kg (281-305)
[2023-03-01 11:29] LABS: Triiodothyronine T3 Total 71 ng/dL (76-181)
[2023-03-01 18:57] LABS: Sex Hormone Binding Globulin 169 nmol/L (22-77)
[2023-03-04 19:53] LABS: Testosterone, Free 3.8 pg/mL (30.0-135.0); Testosterone, Total 71 ng/dL (250-1100)
[2023-03-05 12:39] LABS: Adrenocorticotropic Hormone <5 pg/mL (6-50)
[2023-03-05 18:03] LABS: Follicle Stimulating Hormone 14.5 mIU/mL (1.6-8.0); Lutenizing Hormone 5.5 mIU/mL (1.6-15.2); Prolactin Undiluted 5.3 ng/mL (2.0-18.0)
[2023-03-18 10:24] LABS: IGF-1 (Somatomedin C) 29 ng/mL (34-245); IGF-1 Z Score (Male) -2.3 SD (-2.0 - +2.0)
== END 2023-02-27 08:06 | disposition home or self-care (01) ==
LOC: HO.LAB 08:05
PROVIDERS: Internal Medicine; PCP Internal Medicine; Visit Provider Internal Medicine
DX: C20 Malignant neoplasm of rectum (principal); C77.2 Secondary and unspecified malignant neoplasm of intra-abdominal lymph nodes; E23.7 Disorder of pituitary gland, unspecified; E87.1 Hypo-osmolality and hyponatremia
CPT/HCPCS: 36415; 80053; 82024; 82533; 83001; 83002; 83930; 84146; 84270; 84305; 84402; 84403; 84439; 84443; 84480; 85025

== ENCOUNTER 2023-03-04 07:17 | Outpatient (REF) | payer OTHER, SELFPAY ==
[2023-03-04 08:08] LABS: Anion Gap 12 (12-20); Blood Urea Nitrogen 9 mg/dL (9-16); Calcium 9.2 mg/dL (8.4-10.2); Carbon Dioxide 26 mmol/L (22-29); Chloride 97 mmol/L (96-108); Estimated Glomerular Filt Rate > 60; Glucose Random 79 mg/dL (60-115); Potassium 4.2 mmol/L (3.3-5.1); Sodium 131 mmol/L (135-145)
[2023-03-04 08:31] LABS: Cortisol Random 8.9 ug/dL
[2023-03-06 21:53] LABS: DHEA Sulfate 7 mcg/dL (3-225)
[2023-03-11 14:09] LABS: Adrenocorticotropic Hormone 24 pg/mL (6-50)
== END 2023-03-04 07:18 | disposition home or self-care (01) ==
LOC: HO.LAB 07:17
PROVIDERS: Visit Provider Internal Medicine
DX: E23.7 Disorder of pituitary gland, unspecified (principal)
CPT/HCPCS: 36415; 80048; 82024; 82533; 82627

== ENCOUNTER 2023-03-08 10:13 | Outpatient (REF) | payer OTHER, SELFPAY | END 2023-03-08 10:14 | disposition home or self-care (01) | LOC: HO.LAB 10:13 | PROVIDERS: PCP Internal Medicine; Visit Provider Internal Medicine | DX: Z13.89 Encounter for screening for other disorder (principal) ==

== ENCOUNTER 2023-03-08 10:17 | Outpatient (REF) | payer OTHER, SELFPAY ==
[2023-03-09 21:28] LABS: Cortisol 30 Minute 14.5 mcg/dL; Cortisol 60 Minute 19.3 mcg/dL; Cortisol Baseline 5.5 mcg/dL
[2023-03-14 15:04] LABS: Adrenocorticotropic Hormone 23 pg/mL (6-50)
== END 2023-03-08 10:18 | disposition home or self-care (01) ==
LOC: HO.MDS 10:17
PROVIDERS: Visit Provider Internal Medicine
DX: E27.40 Unspecified adrenocortical insufficiency (principal)
CPT/HCPCS: 36415; 82024; 82533; 96374; J0834; J1642

== ENCOUNTER 2023-04-21 15:48 | Outpatient (AMB) | payer OTHER, MEDICARE, SELFPAY ==
[2023-04-21 15:55] VITALS: BP 112/62; PULSE 70; BMI 17.9
--- NOTE | 2023-04-21 15:55 | MHC.OFFVIS ---
Intake Vital Signs 04/21/23 15:55 Height 6 ft 2 in Weight 139 lb 8.842 oz BMI 17.9 BP 112/62 Blood Pressure Location Lt brachial Position Sitting Pulse 70 Pulse Source Pulse Oximeter Intake Visit Reasons: Pituitary microadenoma/Confirmed Intake Note: Patient present for Pituitary microadenoma follow up visit. 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 The patient last saw Dr. Duque on 11/30/2022 The patient was initially diagnosed with Stage IV CRC after he presented to the ED in Aug 2021 with hematochezia and weakness. He was found to have an obstructing rectal lesion. He then underwent PET CT 10/2021 which revealed FDG avid nodules within the lungs, colon/rectum, kidney and also the pituitary. The pituitary lesion was found to have SUV max of 20.1. He subsequently had an MRI of the pituitary 11/11/2021 which revealed a 2.3 cm pituitary mass with erosion of the sella. He was followed by Dr. Cisneros for both his renal carcinoma as well as his CRC. He was started on XELOX plus Avastin and also had a diverting colostomy placed. He also had a port placed. Course was further complicated by the development of a PE and he was started on eliquis. He then developed a port infection, and port has since been removed. He recently was resumed back on his chemotherapy. 05/2022 he began complaining of diplopia. Repeat pituitary MRI was performed which revealed slight increase in the size of the pituitary lesion with suprasellar extension and abuttment of the optic chiasm as well as L optic nerve. He was referred to [facility] and underwent stereotactic radiation to the pituitary, and received a total of 15 treatments. He was on Decadron 4 mg PO BID at that time, but this was tapered to off. He is currently not on any glucocorticoid replacement. Radiotherapy began 06/22/2022. He underwent a low dose 1 mcg cosyntropin stim test which was completely WNL, ruling out central adrenal insufficiency in 2022. 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 He was started on levothyroxine 25 mcg PO daily. He opted to not begin testosterone therapy given his history of blood clot. His most recent labs show hyponatremia. He also reports weight loss, but otherwise states he feels well. He is unsure if he remains on dexamethasone at this time. He denies any visual complaints. He denies any headaches. He had formal visual manzano assessed in 2022 which were WNL. He does report he had a repeat Pituitary MRI in September of 2022. He had a repeat PET CT 10/2022 which revealed resolution of the increased FDG uptake within the pituitary. MRI Pituitary: 05/27/2022 FINDINGS: Enhancement characteristics associated with a large intrasellar mass are now more heterogeneous with some fluid filled components near the superior aspect which may represent intralesional cystic hemorrhage or cystic degeneration. The overall height of the pituitary tissue has slightly increased when compared from prior imaging now measuring 1.9 cm in maximal height which represents an increase from 1.8 cm measured on prior imaging from 03/05/2022. The superior surface of the lesion bulges further into the suprasellar compartment causing abutment along the undersurface of the optic chiasm and the prechiasmatic segment of the left optic nerve. Rightward deviation of the pituitary stalk. Cavernous sinuses enhance symmetrically. Cavernous internal carotid artery flow voids are maintained. Postcontrast images of the whole brain reveal no abnormal mass or enhancement elsewhere within the intracranial compartment. No hydrocephalus. The cervicomedullary junction is normal. No acute bone marrow signal changes. No acute territorial infarct. Intracranial vascular flow voids are grossly maintained. No mastoid or middle ear effusion. Mild to moderate paranasal sinus disease primarily affecting the ethmoid air cells. Globes and orbits are symmetric. MR/MR head/brain wo/w con IMPRESSION: When compared to the prior brain MRI from 03/05/2022 there has been some intralesional cystic degeneration or intralesional hemorrhage at the superior aspect of the pituitary mass. The overall height of the pituitary tissue has slightly increased when compared to prior imaging and it now causes abutment along the undersurface of the optic chiasm and prechiasmatic segment of the left optic nerve. Labs: Laboratory Tests 11/06/22 11/06/22 11/17/22 12:08 12:08 07:19 Sodium 132 L Potassium 4.9 D Creatinine 0.65 Estimated GFR > 60 TSH 0.98 Free T4 0.88 Total T3 80 Has fatigue . No orthostatic sx. No sxof adrenal insuffiency. 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 Fever of unknown origin Headache HTN (hypertension) Mass of pituitary Pituitary lesion Pituitary macroadenoma Rectosigmoid cancer Renal cell carcinoma Secondary male hypogonadism Surgical History History of removal of Port-a-Cath H/O hernia repair S/P colon resection Family History Mother Parkinsons disease Father ESRD (end stage renal disease) Other No family history of cancer Social History Household Members: Spouse Household Members Other:: 1 Housing: House Are you a primary health care facilities inspector to a significant other at home: No Do you presently have visiting nurse or other home services: No Alcohol intake: never Patient Tobacco Use Status: Former Tobacco user Quit Date: 30 y.o Tobacco use type: Cigarette Years Smoked: 30 years ago e-Cigarette/Vaping Use: Never Used Second Hand Smoke Exposure: No service: Yes (1969- ) Current occupational status: employed and retired Cognitive needs: No Hearing needs: No Vision needs: No Physical Exam Vital Signs: Last Vital Signs Pulse 70 04/21/23 15:55 BP 112/62 04/21/23 15:55 BMI result Body Mass Index 17.9 Const Other: There is the absence of any visual field loss by gross confrontation Assessment & Plan Assessment & Plan (1) Pituitary lesion: Code(s): E23.7 - Disorder of pituitary gland, unspecified Plan: This a 72-year-old white male with a history of pituitary macroadenoma thought to be metastases status post stereotactic treatment with shrinkage of the macroadenoma. Pituitary axis affected appear to be affected appear to be the gonadal axis as well as thyroid axis. Patient is currently on levothyroxine 75 micrograms. He has secondary hypogonadism but is not interested in taking testosterone therapy because of previous blood clots. Plan is to recheck free T4 and titrate levothyroxine to keep free T4 and upper range of normal. Patient's will get back to us regarding dose of levothyroxine patient is currently on. Discuss testosterone therapy again with patient . Will get a 2nd opinion at [facility] neuro endocrinology I made a referral. (2) Osteoporosis: Code(s): M81.0 - Age-related osteoporosis without current pathological fracture Orders: Orders Free T4 (Free Thyroxine) Today E23.7 - Disorder of pituitary gland, unspecified XR DEXA axial skeleton Today M81.0 - Age-related osteoporosis without current pathological fracture Referrals Endocrinology Referral E23.7 - Disorder of pituitary gland, unspecified Coding Level of Care Code Est Pt Level 3 (03110) Diagnoses Pituitary lesion E23.7 Osteoporosis M81.0
== END 2023-04-21 16:51 | disposition home or self-care (01) ==
PROVIDERS: PCP Internal Medicine; Visit Provider Internal Medicine Endocrinology, Diabetes & Metabolism
DX: E23.7 Disorder of pituitary gland, unspecified (principal); M81.0 Age-related osteoporosis without current pathological fracture
CPT/HCPCS: 99213

== ENCOUNTER → 2023-04-21 15:48 | Outpatient (BNVA) | payer OTHER, SELFPAY | PROVIDERS: PCP Internal Medicine; Visit Provider Internal Medicine Endocrinology, Diabetes & Metabolism | DX: E23.7 Disorder of pituitary gland, unspecified (principal); M81.0 Age-related osteoporosis without current pathological fracture | CPT/HCPCS: 99212 ==

== ENCOUNTER 2023-04-27 16:29 | Inpatient (IN) | payer OTHER, SELFPAY ==
[2023-04-27] VITALS (8 sets, daily range): BP systolic 102–168; BP diastolic 61–78; PULSE 62–93; RESP 10–16; TEMP 36.5–36.7; O2SAT 97–100; BMI 18.9
--- NOTE | ~2023-04-27 | XR_ITS ---
EXAMINATION: XR CHEST CLINICAL INFORMATION: Hyponatremia COMPARISON: 07/22/22 TECHNIQUE: Frontal portable view of the chest was obtained. FINDINGS: There is rotation to the left. There is a reservoir associated with a right-sided vascular catheter There is calcification of the aortic arch. The cardiac size is within normal limits. There is no large hilar mass. No edema. No dense area of consolidation. The small pulmonary nodules reportedly present on PET/CT July 2022 are not well appreciated. No pneumothorax Limited bone detail XR/XR chest 1V IMPRESSION: No dense area of consolidation or edema.
--- NOTE | 2023-04-27 16:55 | ECG_ITS ---
Test Reason : low sodium Blood Pressure : / mmHG Vent. Rate : 064 BPM Atrial Rate : 064 BPM P-R Int : 152 ms QRS Dur : 088 ms QT Int : 444 ms P-R-T Axes : 082 073 074 degrees QTc Int : 458 ms Normal sinus rhythm Normal ECG When compared with ECG of 22-JUL-2022 05:10, No significant change was found Referred By: Hortencia Cooper Electronically Signed By:HARJEET WICK
--- NOTE | 2023-04-27 16:58 | ED_ITS ---
HPI - General Adult General Chief complaint: Recheck/Abnormal Lab/Rx Stated complaint: LOW SODIUM ON CHEMO Time Seen by Provider: 04/27/23 16:49 Source: patient and family (Spouse) Mode of arrival: ambulatory Limitations: no limitations History of Present Illness HPI narrative: A 72-year-old male history of renal cell carcinoma and colon concert with lung metastases on chemotherapy patient went for his routine blood workup before his next chemotherapy session tomorrow found to have sodium of 121. Patient has been having generalized weakness, decreased p.o. intake, lethargic, as per patient was too weak today almost fell down. Related Data Home Medications Medication Instructions Recorded Confirmed ascorbate calcium (vitamin C) 500 500 mg PO DAILY 10/09/21 04/21/23 mg tablet ferrous sulfate 325 mg (65 mg 325 mg PO DAILY 10/09/21 04/21/23 iron) tablet midodrine 5 mg tablet 5 mg PO TIDWM@0900,1300,1800 07/08/22 04/21/23 Previous Rx's Medication Instructions Recorded capecitabine 500 mg tablet (Xeloda) 1,000 mg (2 x 500 mg) PO BID #56 01/15/23 tabs apixaban 5 mg tablet (Eliquis) 5 mg PO BID #60 tabs 02/02/23 dexamethasone 4 mg tablet 1 tab PO BID #30 tabs 02/02/23 sodium chloride 1,000 mg soluble 1,000 mg PO TID #90 tabs 02/02/23 tablet levothyroxine 75 mcg capsule 75 mcg PO DAILY 30 days #30 caps 03/15/23 Allergies Allergy/AdvReac Type Severity Reaction Status Date / Time No Known Allergies Allergy Verified 04/21/23 15:56 Review of Systems 2 Review of Systems: All other systems are reviewed and are negative Constitutional: Reports as per HPI and Reports no additional constitutional complaints Eyes: Reports as per HPI and Reports no additional eye complaints Reports system reviewed and no additional complaints, except as documented Cardiovascular: Reports as per HPI and Reports no additional cardiovascular complaints Respiratory: Reports as per HPI and Reports no additional respiratory complaints Gastrointestinal: Reports as per HPI and Reports no additional gastrointestinal complaints Genitourinary: Reports no additional female genitourinary complaints Musculoskeletal: Reports no additional musculoskeletal complaints Skin/Breast: Reports system reviewed and no additional complaints, except as docu Psychiatric: Reports no additional psychiatric complaints Endocrine: Reports no additional endocrine complaints Hematologic/Lymphatic: Reports no additional hematologic/lymphatic complaints Allergic/Immunologic: Reports no additional allergic/immunologic complaints Reports system reviewed and no additional complaints, except as documented and Reports Abnormal speech present [facility] Past Medical History Medical History 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 Renal cell carcinoma Rectosigmoid cancer Pituitary lesion Fever of unknown origin Mass of pituitary Headache Colostomy in place HTN (hypertension) [place]-vesical fistula Surgical History History of removal of Port-a-Cath H/O hernia repair S/P colon resection Family History Family History Mother Parkinsons disease Father ESRD (end stage renal disease) Other No family history of cancer Social History Social History Household Members: Spouse Household Members Other:: 1 Housing: House Are you a primary urgent care technician to a significant other at home: No Do you presently have visiting nurse or other home services: No Alcohol intake: never Patient Tobacco Use Status: Former Tobacco user Quit Date: 30 y.o Tobacco use type: Cigarette Years Smoked: 30 years ago e-Cigarette/Vaping Use: Never Used Second Hand Smoke Exposure: No Advance Directives: No Advance Directives Information Provided: No service: Yes ( ) Current occupational status: employed and retired Cognitive needs: No Hearing needs: No Vision needs: No Physical Exam ED Vital Signs: Vital Signs - 24 hr 04/27/23 16:59 04/27/23 17:21 04/27/23 17:49 Temperature 98.0 F 97.7 F Pulse Rate 68 64 Respiratory Rate 10 L 12 Blood Pressure 168/76 H 151/78 H Pulse Oximetry 100 100 Oxygen Delivery Method Room Air Room Air 04/27/23 17:51 04/27/23 17:52 04/27/23 17:53 Temperature Pulse Rate 62 64 93 Respiratory Rate Blood Pressure 161/70 H 159/70 H 102/61 Pulse Oximetry Oxygen Delivery Method BMI result Body Mass Index 18.9 Vital signs have been reviewed and appear to be correct. Blood pressure elevated. Heart rate normal. Respiratory rate normal. Temperature normal. Oxygen saturation normal. Appearance: Cachectic, Alert. Oriented X3. No acute distress. Head: Normal external exam. Normocephalic. Atraumatic. No Woods signs noted. No raccoon eyes noted Eyes: PERRLA. EOMI. Conjunctiva and sclera normal. Eyelids normal. ENT: TM's Normal. Pharynx normal. Uvula midline. Dry mucous membranes. No trismus noted. No drooling noted. No muffled voice noted. Neck: Normal inspection. Neck supple. FROM. No adenopathy. Thyroid Normal. No meningeal signs. No neck mass noted. CVS: Normal heart rate and rhythm. Heart sound normal. No murmurs noted. Pulses normal throughout. Respiratory: No respiratory distress. Painless inspiration. Breath sounds normal. No wheezes/rales/rhonchi noted. Chest nontender. No accessory muscle usage noted or decreased air movement noted. Abdomen: Soft and nontender. Bowel sounds normal in all 4 quadrants. No distention noted. No organomegaly noted. No visible injury noted. Back: No CVA tenderness. Full range of motion noted. Skin: Skin warm and dry. Normal skin color. Normal skin turgor. No rashes/lesions/lacerations noted. Extremities: No lower extremity edema. Extremities exhibit normal range of motion. Extremities nontender. Neuro: Oriented X 3. Cranial nerve exam: II-XII are grossly intact No motor deficit. No sensory deficit. Reflexes normal. Course Course Course Narrative: A 72-year-old male history of renal cell carcinoma on chemotherapy had a routine workup today showed hyponatremia, patient also been feeling lethargic and disoriented with generalized weakness and decreased p.o. intake, patient is orthostatic positive for, sodium is 121 patient was started on normal saline at 100 cc/hour, patient will be admitted for hyponatremia correction. Declining of hemoglobin from the baseline patient declined any bleeding, patient has a colostomy which is old with brown stool and no obvious blood. Medications Administered Generic Name Dose Route Start Last Admin Trade Name Freq PRN Reason Stop Dose Admin Sodium Chloride 1,000 mls @ 75 mls/hr 04/27/23 17:00 04/27/23 18:04 Ns IVCONT 75 mls/hr .[id number] DMITRY Administration Medical Decision Making Differential Diagnosis Differential Diagnoses: The differential diagnosis associated with the presentation includes (Hypernatremia, dehydration, orthostatic hypotension, electrolyte abnormality, severe anemia, UTI.) Admission/Observation Consideration of admission/observation: Escalation of care including admission/observation considered Consult Healthcare Provider Management of the patient was discussed with: Hospitalist (Dr. Duncan) Lab Data MDM Lab Attestation statement: I reviewed the patient's lab results. 04/27/23 17:47 04/27/23 17:47 Labs: Lab Results 04/27/23 04/27/23 Range/Units 17:47 17:59 WBC 2.5 L (4.8-10.8) X10*3/uL RBC 2.38 L D (4.60-5.80) X10*6/uL Hgb 8.3 L D (14.0-18.0) g/dl Hct 23.3 L D (42.0-52.0) % MCV 97.9 (80.0-98.0) fL MCH 34.9 H (27.0-33.0) pg MCHC 35.6 (31.0-36.0) g/dl RDW 18.6 H (11.0-16.0) % Plt Count 142 L D (160-400) X10*3/uL MPV 9.0 L (9.4-12.4) fL Immature Gran % (Auto) 0.4 (0.0-0.4) % Neut % (Auto) 43.8 L (45-73) % Lymph % (Auto) 31.8 (20-40) % [place] % (Auto) 21.2 H (2-11) % Eos % (Auto) 2.4 (0-4) % Baso % (Auto) 0.4 (0-2) % Lymph # (Auto) 0.8 L (1.2-4.9) X10*3/uL [place] # (Auto) 0.5 (0.1-1.2) X10*3/uL Eos # (Auto) 0.1 (0.0-0.4) X10*3/uL Baso # (Auto) 0.0 (0.0-0.2) X10*3/uL Abs Immat Gran (auto) 0.01 (0.00-0.03) X10*3/uL Absolute Neuts (auto) 1.1 L (2.0-8.3) x10*3/uL Absolute Nucleated RBC 0.000 (0.0-0.012) X10*3/uL Nucleated RBC % (auto) 0.0 (0.0-0.2) /100WBC Smear Tech's Comments VERIFIED Smear Path Review Cancelled Sodium 121 L (135-145) mmol/L Potassium 3.6 (3.3-5.1) mmol/L Chloride 92 L (96-108) mmol/L Carbon Dioxide 24 (22-29) mmol/L Anion Gap 9 L (12-20) BUN 6 L (9-16) mg/dL Creatinine 0.52 (0.5-1.4) mg/dL Estim Creat Clear Calc 121.5 Estimated GFR > 60 Random Glucose 103 (60-115) mg/dL Calcium 8.0 L (8.4-10.2) mg/dL Total Bilirubin 0.4 (0.0-1.0) mg/dL Direct Bilirubin 0.2 (0.0-0.5) mg/dL AST 48 H (5-37) U/L ALT 20 (0-40) U/L Alkaline Phosphatase 119 H (39-117) U/L Troponin I High Sens < 2.7 (<3.5-35.0) ng/L B-Natriuretic Peptide 195 H (<100) pg/mL Total Protein 4.2 L (6.5-8.0) g/dL Albumin 2.5 L (3.5-5.0) g/dL Lipase 30 (8-78) U/L Urine Color Yellow Urine Appearance Clear Urine pH 7.0 (5.0-9.0) Ur Specific [place] 1.010 (1.005-1.025) Urine Protein Negative (Neg-Trace) mg/dL Urine Glucose (UA) Negative (Negative) mg/dL Urine Ketones Negative (Negative) mg/dL Urine Blood Negative (Negative) Urine Nitrite Negative (Negative) Ur Leukocyte Esterase Negative (Negative) Ur Random Sodium 99.0 mmol/L Ur Random Potassium 27.3 mmol/L Ur Random Chloride 99.0 mmol/L Influenza Type A (PCR) NEGATIVE (Negative) Influenza Type B (PCR) NEGATIVE (Negative) RSV RNA Qual (PCR) NEGATIVE (Negative) SARS-CoV-2 RNA (RT-PCR) NEGATIVE (Negative) Independent Interpretation I performed an independent interpretation of an: Plain X-Ray (Chest: No acute intrathoracic pathology.) Radiology Impression Discussion of test interpretation with radiology: I have reviewed the radiologist's reading. Discharge Plan Discharge Clinical Impression: Acute hyponatremia, Dehydration, Anemia Patient Disposition: Admitted As Inpatient Prescriptions: No Action levothyroxine 75 mcg capsule 75 mcg PO DAILY 30 Days Qty: 30 3RF midodrine 5 mg tablet 5 mg PO TIDWM@0900,1300,1800 capecitabine [Xeloda] 500 mg tablet 1,000 mg PO BID Qty: 56 5RF Rx Instructions: Take 1,000 mg (2 tabs) BID for 14 days, beginning w/ each new chemo cycle, then stop for 7 days, and begin again w/ next chemo cycle. sodium chloride 1,000 mg Tablet,Soluble 1,000 mg PO TID Qty: 90 3RF Eliquis 5 mg tablet 5 mg PO BID Qty: 60 3RF dexamethasone 4 mg tablet 1 tab PO BID Qty: 30 3RF Rx Instructions: Take 1 tablet twice a day on the 2 days after chemo. ascorbate calcium (vitamin C) 500 mg tablet 500 mg PO DAILY ferrous sulfate 325 mg (65 mg iron) tablet 325 mg PO DAILY
[2023-04-27 17:52] LABS: Basophils Percent Auto 0.4 % (0-2); Eosinophils Absolute Auto 0.1 X10*3/uL (0.0-0.4); Eosinophils Percent Auto 2.4 % (0-4); Hematocrit 23.3 % (42.0-52.0); Hemoglobin 8.3 g/dl (14.0-18.0); Imm Gran Abs Auto 0.01 X10*3/uL (0.00-0.03); Imm Gran Pct Auto 0.4 % (0.0-0.4); Lymphocytes Absolute Auto 0.8 X10*3/uL (1.2-4.9); Lymphocytes Percent Auto 31.8 % (20-40); MANUAL DIFF FLAG SCAN; Mean Corpuscular HGB Conc 35.6 g/dl (31.0-36.0); Mean Corpuscular Hemoglobin 34.9 pg (27.0-33.0); Mean Corpuscular Volume 97.9 fL (80.0-98.0); Monocytes Absolute Auto 0.5 X10*3/uL (0.1-1.2); Monocytes Percent Auto 21.2 % (2-11); Neutrophils Absolute Auto 1.1 x10*3/uL (2.0-8.3); Neutrophils Percent Auto 43.8 % (45-73); Platelet Count 142 X10*3/uL (160-400); Red Blood Count 2.38 X10*6/uL (4.60-5.80); Red Cell Distribution Width 18.6 % (11.0-16.0); SCAN SMEAR FLAG 1
[2023-04-27 18:04] LABS: White Blood Count 2.5 X10*3/uL (4.8-10.8)
[2023-04-27] MEDS: 0.9 % Sodium Chloride 1,000 ML 75 ML IVCONT (18:04)
[2023-04-27 18:09] LABS: Alanine Aminotransferase 20 U/L (0-40); Albumin Level 2.5 g/dL (3.5-5.0); Alkaline Phosphatase 119 U/L (39-117); Anion Gap 9 (12-20); Aspartate Amino Transferase 48 U/L (5-37); Bilirubin Direct 0.2 mg/dL (0.0-0.5); Bilirubin Total 0.4 mg/dL (0.0-1.0); Blood Urea Nitrogen 6 mg/dL (9-16); Carbon Dioxide 24 mmol/L (22-29); Chloride 92 mmol/L (96-108); Creatinine Clr Calc Pharmacy 121.5; Estimated Glomerular Filt Rate > 60; Glucose Random 103 mg/dL (60-115); Lipase 30 U/L (8-78); Potassium 3.6 mmol/L (3.3-5.1); Sodium 121 mmol/L (135-145); Total Protein 4.2 g/dL (6.5-8.0)
[2023-04-27 18:12] LABS: Appearance Urine Clear; Color Urine Yellow; Glucose Urine UA Negative (Negative); Leukocyte Esterase Urine Negative (Negative); Nitrite Urine Negative (Negative); Urine Blood Negative (Negative); Urine Ketones Negative (Negative); Urine Protein Negative (Neg-Trace)
[2023-04-27 18:15] LABS: Potassium Urine Random 27.3 mmol/L
[2023-04-27 18:15] LABS: B Type Natriuretic Peptide 195 pg/mL (<100)
[2023-04-27 18:18] LABS: SLIDE REVIEW VERIFIED
[2023-04-27 18:22] LABS: Troponin-I High Sensitivity < 2.7 ng/L (<3.5-35.0)
[2023-04-27 18:36] LABS: Influenza A PCR NEGATIVE (Negative); Influenza B PCR NEGATIVE (Negative); Resp Syncy Virus RNA Qual PCR NEGATIVE (Negative); SARS COV2 PCR INHOUSE NEGATIVE (Negative)
--- NOTE | 2023-04-27 20:30 | PHA.MEDREC ---
Pharmacy Consult ? Medication Reconciliation Pharmacy has completed the medication reconciliation. Patient's had list of medication. Capecitabine and Dexamethasone are for when patient receives chemo at beginning of cycle therefore left unconfirmed. Patient was scheduled for tomorrow 04/28 Jacinda Magaña, PharmD
--- NOTE | 2023-04-27 21:17 | P.HPHOSP_ITS ---
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 He is on chemotherapy overseen by Dr. Cisneros and is due for chemo tomorrow, 04/28. He had a routine lab today and was called to the ED because of a low sodium level of 121. He is fatigued otherwise was doing fine: no nausea or vomiting, diarrhea, headache, fever, or SOB. Repeat sodium level in ED is still 121 and given 1 L NS.? 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 Renal cell carcinoma Rectosigmoid cancer Pituitary lesion Fever of unknown origin Mass of pituitary Headache Colostomy in place HTN (hypertension) [place]-vesical fistula Family History Mother Parkinsons disease Father ESRD (end stage renal disease) Other No family history of cancer Surgical History History of removal of Port-a-Cath H/O hernia repair S/P colon resection Social History Household Members: Spouse Household Members Other:: 1 Housing: House Are you a primary urgent care physician to a significant other at home: No Do you presently have visiting nurse or other home services: No Alcohol intake: never Patient Tobacco Use Status: Former Tobacco user Quit Date: 30 y.o Tobacco use type: Cigarette Years Smoked: 30 years ago e-Cigarette/Vaping Use: Never Used Second Hand Smoke Exposure: No Advance Directives: No Advance Directives Information Provided: No service: Yes ( ) Current occupational status: employed and retired Cognitive needs: No Hearing needs: No Vision needs: No Meds Allergies Allergy/AdvReac Type Severity Reaction Status Date / Time No Known Allergies Allergy Verified 04/21/23 15:56 Active Medications: Current Medications Sodium Chloride (Ns) 1,000 mls @ 75 mls/hr IVCONT .[id number] DMITRY Last Admin: 04/27/23 18:04 Dose: 75 mls/hr Home Medications Medication Instructions Recorded Confirmed Last Taken Type ascorbate calcium (vitamin C) 500 500 mg PO DAILY 10/09/21 04/27/23 04/27/23 History mg tablet ferrous sulfate 325 mg (65 mg 325 mg PO DAILY 10/09/21 04/27/23 04/27/23 History iron) tablet midodrine 5 mg tablet 5 mg PO TIDWM@0900,1300,1800 07/08/22 04/27/23 04/27/23 History sodium chloride 1,000 mg soluble 2,000 mg PO BID 04/27/23 04/27/23 04/27/23 History tablet Physical Exam 2 Vital Signs and Narrative: Vital Signs: Last Vital Signs Temp 97.8 F 04/27/23 20:58 Pulse 67 04/27/23 20:58 Resp 14 04/27/23 20:58 BP 157/73 H 04/27/23 20:58 Pulse Ox 97 04/27/23 20:58 O2 Del Method Room Air 04/27/23 20:58 BMI result Body Mass Index 18.9 Const: Other: Constitutional: Alert, in no distress, frail looking Mental Status: Oriented to person, place and time. Eyes: Pupils are equal, round and reactive to light. Ear, Nose and Throat: Oropharynx clear, mucous membranes moist. Respiratory: Clear to auscultation. No wheezing, rales or rhonchi. Cardiovascular: S1 S2 regular. No murmurs, rubs or gallops. Gastrointestinal: Abdomen soft, non-tender, non-distended. Normal bowel sounds.? Neurologic: Cranial nerves II-XII grossly intact. No focal neurological deficits. Moves all extremities spontaneously.? Skin: No rashes or lesions.? Musculoskeletal: No cyanosis or clubbing. Psychiatric: Normal mood and affect? Results Labs 04/27/23 17:47 04/27/23 17:47 Labs: Laboratory Results - last 24 hr 04/27/23 04/27/23 17:47 17:59 MCV 97.9 MCH 34.9 H MCHC 35.6 RDW 18.6 H Plt Count 142 L D MPV 9.0 L Immature Gran % (Auto) 0.4 Neut % (Auto) 43.8 L Lymph % (Auto) 31.8 [place] % (Auto) 21.2 H Eos % (Auto) 2.4 Baso % (Auto) 0.4 Lymph # (Auto) 0.8 L [place] # (Auto) 0.5 Eos # (Auto) 0.1 Baso # (Auto) 0.0 Abs Immat Gran (auto) 0.01 Absolute Neuts (auto) 1.1 L Absolute Nucleated RBC 0.000 Nucleated RBC % (auto) 0.0 Smear Tech's Comments VERIFIED Smear Path Review Cancelled Anion Gap 9 L Estim Creat Clear Calc 121.5 Estimated GFR > 60 Random Glucose 103 Calcium 8.0 L Total Bilirubin 0.4 Direct Bilirubin 0.2 AST 48 H ALT 20 Alkaline Phosphatase 119 H B-Natriuretic Peptide 195 H Total Protein 4.2 L Albumin 2.5 L Lipase 30 Urine Color Yellow Urine Appearance Clear Urine pH 7.0 Ur Specific [place] 1.010 Urine Protein Negative Urine Glucose (UA) Negative Urine Ketones Negative Urine Blood Negative Urine Nitrite Negative Ur Leukocyte Esterase Negative Ur Random Sodium 99.0 Ur Random Potassium 27.3 Ur Random Chloride 99.0 Influenza Type A (PCR) NEGATIVE Influenza Type B (PCR) NEGATIVE RSV RNA Qual (PCR) NEGATIVE SARS-CoV-2 RNA (RT-PCR) NEGATIVE Imaging Radiologist's Impressions: Impressions Chest X-Ray 04/27/23 17:00 IMPRESSION: No dense area of consolidation or edema. 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 Fluid restriction, check urinary labs (sodium, osmo), nephrology consult. Sodium level Q4 hrs History of PE continue eliquis Mild protein calory malnutriton--Ensure Metastatic cancer was due for chemo tomorrow but won't happen will notify Dr. Cisneros Hypothyroidism--continue Levothyroxine HTN--avoid meds due to orthostatic hypotension, unless extremely Chronic orthostatic hypotension, continue mododrine Full Code DVT pptx, Eliquis Admission for at least 2 midnights for HypOnatremia management, frequent labs Time Spent With Patient Time: Total time managing care of this patient today ____ minutes. Quality Stroke Does the patient have a stroke diagnosis?: No VTE Prior VTE?: Yes VTE Risk Level:: Medical - moderate - high VTE Device Contraindication: Treatment Not Indicated VTE Drug Contraindication: N/A - Med Ordered
[2023-04-27 22:21] LABS: OBS Int Ctl Valid YES; OBS1 POSITIVE (NEGATIVE)
--- NOTE | 2023-04-27 22:31 | PC.NURSE ---
Clostomy bag changed by this nurse. Hemacult sample obtained and sent to lab.
[2023-04-27 23:18] LABS: Osmolality, Serum 251 mosm/kg (281-305)
[2023-04-27 23:23] LABS: Anion Gap 9 (12-20); Carbon Dioxide 23 mmol/L (22-29); Chloride 92 mmol/L (96-108); Potassium 3.6 mmol/L (3.3-5.1); Sodium 120 mmol/L (135-145)
[2023-04-28 00:10] LABS: Osmolality Urine 317 mosm/kg (373-1093)
[2023-04-28] MEDS: Apixaban 5 MG TABLET PO ×3 (00:17→19:38)
[2023-04-28 00:20] VITALS: BMI 17.4
[2023-04-28 00:41] VITALS: BP 174/80; PULSE 67; RESP 16; TEMP 36; O2SAT 99
[2023-04-28 04:00] VITALS: BP 178/80; PULSE 65; RESP 16; TEMP 36; O2SAT 100
--- NOTE | 2023-04-28 04:17 | PC.NURSE ---
At 0415 pt's BP is 178/[address] Duncan aware.
[2023-04-28] MEDS: Levothyroxine Sodium 75 MCG TABLET PO (05:12)
[2023-04-28] MEDS: 0.9 % Sodium Chloride 1,000 ML 75 ML IVCONT (05:14)
[2023-04-28 07:49] VITALS: BP 180/96; PULSE 76; RESP 17; TEMP 36.6; O2SAT 100
[2023-04-28] MEDS: Ferrous Sulfate 324 MG TABLET.DR PO (08:17)
[2023-04-28] MEDS: Ascorbic Acid 500 MG TABLET PO (08:17)
[2023-04-28] MEDS: Sodium Chloride Tab 1 GM TABLET 2 GM PO ×2 (08:17→19:38)
[2023-04-28 08:34] LABS: Anion Gap 9 (12-20); Blood Urea Nitrogen 3 mg/dL (9-16); Calcium 8.1 mg/dL (8.4-10.2); Carbon Dioxide 23 mmol/L (22-29); Chloride 93 mmol/L (96-108); Creatinine Clr Calc Pharmacy 126.4; Estimated Glomerular Filt Rate > 60; Glucose Random 69 mg/dL (60-115); Potassium 3.6 mmol/L (3.3-5.1); Sodium 121 mmol/L (135-145)
--- NOTE | 2023-04-28 08:38 | P.CNHO_ITS ---
Subjective - Subjective Chief complaint: Consult for: 1. Hyponatremia. 2. Patient: known to practice within the last 3 years Consult date: 04/28/23 Requesting Physician: [facility] Primary Care Provider: Unknown Physician Medical Summary: DIAGNOSIS: 1. Rectosigmoid carcinoma. 2. Renal cell carcinoma. 3. Brain metastases. 4. Hyponatremia secondary to SIADH. HPI - Consult Narrative Reason for consult: Consult for: 1. Renal cell carcinoma. 2. Hyponatremia. Narrative: Alfredo Diallo is a 72 year old gentleman admitted yesterday for hyponatremia. 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 In addition there is a h/o PE on eliquis, Hypothyroidism, HTN, chronic hyponatremia on salt tabs. He is rather fatigued and somewhat confused. Denies:nausea or vomiting, diarrhea, headache, fever, or SOB. Repeat sodium level in ED was still 121 and given 1 L NS.? He is on chemotherapy,, He was due for chemo on 04/28. He had a routine lab today and was called to the ED because of a low sodium level of 121. 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 Renal cell carcinoma Rectosigmoid cancer Pituitary lesion Fever of unknown origin Mass of pituitary Headache Colostomy in place HTN (hypertension) [place]-vesical fistula Family History: Mother Parkinsons disease Father ESRD (end stage renal disease) Other No family history of cancer Review of Systems - Constitutional Reports system reviewed and no additional complaints, except as documented - Eyes Reports system reviewed and no additional complaints, except as documented - ENT Reports system reviewed and no additional complaints, except as documented - Cardiovascular Reports system reviewed and no additional complaints, except as documented - Respiratory Reports no additional respiratory complaints - Gastrointestinal Reports system reviewed and no additional complaints, except as documented - Genitourinary Genitourinary: Reports no additional male genitourinary complaints - Musculoskeletal Reports system reviewed and no additional complaints, except as documented - Integumentary/Breasts Skin/Breast: Reports no additional skin complaints - Neurologic Reports system reviewed and no additional complaints, except as documented - Psychiatric Reports system reviewed and no additional complaints, except as documented - Endocrine Reports no additional endocrine complaints - Hematologic/Lymphatic Reports system reviewed and no additional complaints, except as documented - Allergic/Immunologic Reports system reviewed and no additional complaints, except as documented Oncology Screenings - ECOG Performance Status ECOG Performance Status: 1 [facility] Medical History: Medical History (Last Reviewed 04/30/23 @ 13:00 by Maria Teresa Garcia, PT) Central hypothyroidism Chronic hyponatremia Chronic orthostatic hypotension [place]-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 Fever of unknown origin Headache HTN (hypertension) Hypothyroidism Mass of pituitary Pituitary lesion Pituitary macroadenoma Rectosigmoid cancer Renal cell carcinoma Secondary male hypogonadism Functional capacity: uses cane/walker Patient : No Family History: Family History (Last Reviewed 04/27/23 @ 17:00 by Hortencia Cooper MD) Mother Parkinsons disease Father ESRD (end stage renal disease) Other No family history of cancer Surgical History: Surgical History (Last Reviewed 04/30/23 @ 13:00 by Maria Teresa Garcia, PT) H/O hernia repair History of removal of Port-a-Cath S/P colon resection Social History: Social History (Last Reviewed 04/27/23 @ 17:00 by Hortencia Cooper MD) Living Situation History: Household Members: Spouse Household Members Other:: 1 Housing: House Are you a primary healthcare market consultant to a significant other at home: No Do you presently have visiting nurse or other home services: No Tobacco History: Patient Tobacco Use Status: Former Tobacco user Tobacco use type: Cigarette Years Smoked: 30 years ago Smoke Quit Date: 30 y.o e-Cigarette/Vaping Use: Never Used Second Hand Smoke Exposure: No Occupation Assessmet: service: Yes Current occupational status: employed Current occupational status: retired Home Medications and Allergies Current Medications: Current Medications Apixaban (Apixaban 5 Mg Tablet) 5 mg PO BID [facility] Last Admin: 04/28/23 08:17 Dose: 5 mg Ascorbic Acid (Ascorbic Acid 500 Mg Tablet) 500 mg PO DAILY [facility] Last Admin: 04/28/23 08:17 Dose: 500 mg Ferrous Sulfate (Ferrous Sulfate 324 Mg Tablet.Dr) 324 mg PO DAILY [facility] Last Admin: 04/28/23 08:17 Dose: 324 mg Sodium Chloride (Ns) 1,000 mls @ 75 mls/hr IVCONT .[id number] [facility] Last Admin: 04/28/23 05:14 Dose: 75 mls/hr Levothyroxine Sodium (Levothyroxine Sodium 75 Mcg Tablet) 75 mcg PO DAILY@0600 [facility] Last Admin: 04/28/23 05:12 Dose: 75 mcg Midodrine (Midodrine Hcl 5 Mg Tablet) 5 mg PO TIDWM@0900,1300,1800 [facility] Last Admin: 04/28/23 07:45 Dose: Not Given Sodium Chloride (Sodium Chloride Tab 1 Gm Tablet) 2 gm PO BID [facility] Last Admin: 04/28/23 08:17 Dose: 2 gm Sodium Chloride (0.9 % Sodium Chloride Flush 3 Ml Syringe) 3 ml IVFLUSH QSHIFT [facility] Last Admin: 04/28/23 07:44 Dose: Not Given Home Medications Medication Instructions Recorded Confirmed Type ascorbate calcium (vitamin C) 500 500 mg PO DAILY 10/09/21 04/27/23 History mg tablet ferrous sulfate 325 mg (65 mg 325 mg PO DAILY 10/09/21 04/27/23 History iron) tablet midodrine 5 mg tablet 5 mg PO TIDWM@0900,1300,1800 07/08/22 04/27/23 History sodium chloride 1,000 mg soluble 2,000 mg PO BID 04/27/23 04/27/23 History tablet Allergies Allergy/AdvReac Type Severity Reaction Status Date / Time No Known Allergies Allergy Verified 04/21/23 15:56 Physical Exam Vital signs: Vital Signs Temp 97.9 F 04/28/23 07:49 Pulse 76 04/28/23 07:49 Resp 04/28/23 07:49 BP 180/96 H 04/28/23 07:49 Pulse Ox 100 04/28/23 07:49 O2 Del Method Room Air 04/28/23 07:49 Intake & Output 18:59 06:59 18:59 Intake Total 837.5 / 837.5 Physical Exam Balance -962.5 / -962.5 Urine Output (Average ml/kg/hr) 2.44 Intake: Intake, IV Amount 837.5 / 837.5 Resp 17 04/28/23 07:49 @ 75 mls/hr IVCONT .[id number] [facility] Rx#:[id number] Output: Output, Urine Amount 1800 / 1800 Other: Urine Urinal Urine Color Yellow Last Bowel Movement 04/27/23 Weight 66.9 kg 61.6 kg Weight in Grams [id number] Intake: - Constitutional Present: mild distress - Routine HEENT Exam Head: Present: normocephalic Eye: Present: EOMI, normal appearance ENT: Present: mucous membranes moist - Routine Neck Exam Present: supple - Routine Respiratory Exam Present: CTAB - Routine Cardiovascular Exam Cardiovascular: Present: RRR, S1, S2 - Routine Abdominal Exam Present: nontender - Routine Extremities Exam - Routine Skin Exam Present: intact Hem/Onc Consult Result - Labs CBC & Chem 7: 04/29/23 05:57 05/01/23 05:27 Labs: Short CBC 04/27/23 Range/Units 17:47 WBC 2.5 L (4.8-10.8) X10*3/uL Hgb 8.3 L D (14.0-18.0) g/dl Hct 23.3 L D (42.0-52.0) % Plt Count 142 L D (160-400) X10*3/uL BMP 04/27/23 04/27/23 04/28/23 17:47 22:54 08:10 Sodium 121 L 120 L* 121 L Potassium 3.6 3.6 3.6 Chloride 92 L 92 L 93 L Carbon Dioxide 24 23 23 BUN 6 L 3 L Creatinine 0.52 0.46 L Calcium 8.0 L 8.1 L Liver Function 04/27/23 Range/Units 17:47 Total Bilirubin 0.4 (0.0-1.0) mg/dL Direct Bilirubin 0.2 (0.0-0.5) mg/dL AST 48 H (5-37) U/L ALT 20 (0-40) U/L Alkaline Phosphatase 119 H (39-117) U/L Albumin 2.5 L (3.5-5.0) g/dL Urine 04/27/23 Range/Units 17:59 Urine Color Yellow Urine Appearance Clear Urine pH 7.0 (5.0-9.0) Ur Specific [place] 1.010 (1.005-1.025) Urine Protein Negative (Neg-Trace) mg/dL Urine Glucose (UA) Negative (Negative) mg/dL Assessment and Plan Patient Active problem list reviewed?: Yes (1) Renal cell carcinoma Status: Acute Assessment and plan: This is a 72-year-old male with: 1. Metastatic rectosigmoid adenocarcinoma. KRAS, NRAS, BRAF negative, MSI stable PET-CT performed 10/21/2021 revealed multiple FDG avid pulmonary nodules, metastasis, FDG avid pituitary lesion with erosion of sella turcica, likely metastasis. FDG avid right lower pole renal mass likely malignant. On 10/23/2021 biopsy of right lung mass revealed moderately differentiated adenocarcinoma consistent with metastasis from known colonic primary. Patient started systemic/palliative therapy with XELOX regimen with Avastin from 11/24/2021 until April 2022. He has had interruption of treatment because of pulmonary embolism as well as progressive brain metastasis. PET-CT performed at [facility] on 03/01/2023 showed unchanged FDG avid right middle lobe nodular lesion with mild SUV. Mildly enlarged right lower pole solid renal mass. No other additional FDG uptake. 2. 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 3. Solitary brain metastasis in the left aspect of pituitary gland. He became symptomatic with this in June 16, he received palliative radiation therapy to brain lesion at [facility]. Repeat brain MRI performed in August 2022 showed slight decrease in size and patient remains asymptomatic. PET scan performed in October 2022 showed complete resolution of FDG activity. 4. Pulmonary embolism in right lower lobe diagnosed 03/26/2022. Patient is on Eliquis. 5. He had a port infection: Mediport was removed, he finished course of antibiotics, subsequent cultures were negative. He had a repeat insertion of MediPort for treatment purposes. 6. 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 He has both pulmonary meds and brain metastases causing this. He has been on sodium bicarbonate, 3 times a day. Serum sodium levels went down when he cut back his sodium to twice a day. He is now admitted with a sodium of 121. He was symptomatic with it, with fatigue and mental confusion. Serum sodium stable at 121. PLAN: Urine lytes: Pending. He is being treated with fluid restriction. Can use demeclocycline for the SIADH. Renal to advise further. Meanwhile would hold Xeloda, ill he recovers. Thank you for this consult, I will follow along with you, Cc: Dr. Duncan. - Time Spent With Patient Time Spent with Patient (in minutes): 30 6. 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 He has both pulmonary meds and brain metastases causing this. He has been on sodium bicarbonate, 3 times a day. Serum sodium levels went down when he cut back his sodium to twice a day. He is now admitted with a sodium of 121. He was symptomatic with it, with fatigue and mental confusion. Serum sodium stable at 121. PLAN: Urine lytes: Pending. He is being treated with fluid restriction. Can use demeclocycline for the SIADH. Renal to advise further. Thank you for this consult, I will follow along with you, Cc: Dr. Duncan. - Time Spent With Patient Time Spent with Patient (in minutes): 30
--- NOTE | 2023-04-28 11:17 | MHC.CM.PN ---
Pt admitted with hyponatremia. Pt with a PMHO Renal cell CA and metastatic rectosigmoid adenocarcinoma colon w/ pulmonary and brain (pituitary) mets. This CM met with pts /HCP Lisa Powell at bedside for intake assessment as pt sleeping soundly. 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 Pts states he does not do much these days, mainly goes from bed to chair. Pt uses a cane & walker, they are currently awaiting [facility] which should be taking place within the month. Pts states their 3 adult children and the pts 2 brothers are very supportive in helping with his care. D/C plan: return home with family support vs w/ new VNA ([facility] is preferred choice). Pts 2 brothers will transport him home. PCP: Dr. Drew Diaz
[2023-04-28 11:44] VITALS: BMI 17.4
[2023-04-28 11:48] VITALS: BP 165/77; PULSE 65; RESP 16; TEMP 36.6; O2SAT 95
--- NOTE | 2023-04-28 12:14 | P.PNIM_ITS ---
Subjective Subjective Date of Service: 04/28/23 Review of Systems Follow up hyponatremia no pain, nausea or vomiting Physical Exam 2 Vital Signs: Vital Signs: Last Vital Signs Temp 98 F 04/28/23 11:48 Pulse 65 04/28/23 11:48 Resp 16 04/28/23 11:48 BP 165/77 H 04/28/23 11:48 Pulse Ox 95 04/28/23 11:48 O2 Del Method Room Air 04/28/23 11:48 BMI result Body Mass Index 17.4 Appearing in no acute distress lung sounds are clear to auscultation heart regular rate rhythm, clear S1, S2 positive bowel sounds, abdomen is soft, nontender neuro patient is alert x3, no focal deficits Objective Data Active Medications Apixaban (Apixaban 5 Mg Tablet) 5 mg PO BID [facility] Last Admin: 04/28/23 08:17 Dose: 5 mg Documented By: MOHSEN Ascorbic Acid (Ascorbic Acid 500 Mg Tablet) 500 mg PO DAILY [facility] Last Admin: 04/28/23 08:17 Dose: 500 mg Documented By: MOHSEN Ferrous Sulfate (Ferrous Sulfate 324 Mg Tablet.Dr) 324 mg PO DAILY [facility] Last Admin: 04/28/23 08:17 Dose: 324 mg Documented By: MOHSEN Sodium Chloride (Ns) 1,000 mls @ 75 mls/hr IVCONT .[id number] [facility] Last Admin: 04/28/23 05:14 Dose: 75 mls/hr Documented By: BRIGETTE Levothyroxine Sodium (Levothyroxine Sodium 75 Mcg Tablet) 75 mcg PO DAILY@0600 [facility] Last Admin: 04/28/23 05:12 Dose: 75 mcg Documented By: BRIGETTE Midodrine (Midodrine Hcl 5 Mg Tablet) 5 mg PO TIDWM@0900,1300,1800 [facility] Last Admin: 04/28/23 07:45 Dose: Not Given Documented By: COTEMA Non-Admin Reason: high blood pressure Sodium Chloride (Sodium Chloride Tab 1 Gm Tablet) 2 gm PO BID [facility] Last Admin: 04/28/23 08:17 Dose: 2 gm Documented By: MOHSEN Sodium Chloride (0.9 % Sodium Chloride Flush 3 Ml Syringe) 3 ml IVFLUSH QSHIFT [facility] Last Admin: 04/28/23 07:44 Dose: Not Given Documented By: MOHSEN Non-Admin Reason: IV Running Labs 04/27/23 17:47 04/28/23 08:10 Labs: Laboratory Results - last 24 hr 04/27/23 04/27/23 04/27/23 17:47 17:59 21:47 MCV 97.9 MCH 34.9 H MCHC 35.6 RDW 18.6 H Plt Count 142 L D MPV 9.0 L Immature Gran % (Auto) 0.4 Neut % (Auto) 43.8 L Lymph % (Auto) 31.8 [place] % (Auto) 21.2 H Eos % (Auto) 2.4 Baso % (Auto) 0.4 Lymph # (Auto) 0.8 L [place] # (Auto) 0.5 Eos # (Auto) 0.1 Baso # (Auto) 0.0 Abs Immat Gran (auto) 0.01 Absolute Neuts (auto) 1.1 L Absolute Nucleated RBC 0.000 Nucleated RBC % (auto) 0.0 Smear Tech's Comments VERIFIED Smear Path Review Cancelled Hold Purple Top Anion Gap 9 L Estim Creat Clear Calc 121.5 Estimated GFR > 60 Random Glucose 103 Osmolality Calcium 8.0 L Total Bilirubin 0.4 Direct Bilirubin 0.2 AST 48 H ALT 20 Alkaline Phosphatase 119 H B-Natriuretic Peptide 195 H Total Protein 4.2 L Albumin 2.5 L Lipase 30 Urine Color Yellow Urine Appearance Clear Urine pH 7.0 Ur Specific [place] 1.010 Urine Protein Negative Urine Glucose (UA) Negative Urine Ketones Negative Urine Blood Negative Urine Nitrite Negative Ur Leukocyte Esterase Negative Urine Osmolality Ur Random Sodium 99.0 Ur Random Potassium 27.3 Ur Random Chloride 99.0 Stool Occult Blood POSITIVE Influenza Type A (PCR) NEGATIVE Influenza Type B (PCR) NEGATIVE RSV RNA Qual (PCR) NEGATIVE SARS-CoV-2 RNA (RT-PCR) NEGATIVE 04/27/23 04/27/23 04/28/23 22:54 23:54 08:10 MCV MCH MCHC RDW Plt Count MPV Immature Gran % (Auto) Neut % (Auto) Lymph % (Auto) [place] % (Auto) Eos % (Auto) Baso % (Auto) Lymph # (Auto) [place] # (Auto) Eos # (Auto) Baso # (Auto) Abs Immat Gran (auto) Absolute Neuts (auto) Absolute Nucleated RBC Nucleated RBC % (auto) Smear Tech's Comments Smear Path Review Hold Purple Top SEE NOTE Anion Gap 9 L 9 L Estim Creat Clear Calc 126.4 Estimated GFR > 60 Random Glucose 69 Osmolality 251 L Calcium 8.1 L Total Bilirubin Direct Bilirubin AST ALT Alkaline Phosphatase B-Natriuretic Peptide Total Protein Albumin Lipase Urine Color Urine Appearance Urine pH Ur Specific [place] Urine Protein Urine Glucose (UA) Urine Ketones Urine Blood Urine Nitrite Ur Leukocyte Esterase Urine Osmolality 317 L Ur Random Sodium 124.0 Ur Random Potassium Ur Random Chloride Stool Occult Blood Influenza Type A (PCR) Influenza Type B (PCR) RSV RNA Qual (PCR) SARS-CoV-2 RNA (RT-PCR) Assessment and Plan (1) Renal cell carcinoma: Status: Acute Plan 72 year old male with a PMH of Renal Cell Ca, 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 Fluid restriction of 1 L check urinary labs (sodium 124, osmo 317) nephrology consult pending Sodium level Q4 hrs x3 History of PE continue eliquis Mild protein calorie malnutriton add Ensure to diet Metastatic cancer, renal cell carcinoma , rectosigmoid carcinoma, brain Mets was due for chemo hem/onc consult pending Hypothyroidism continue Levothyroxine HTN no medications but holding midodrine Chronic orthostatic hypotension elevated blood pressure readings Hold midodrine Full Code DVT pptx, Eliquis Attending Dr. Canales continue hospitals stay for Hyponatremia management, frequent labs Time Spent With Patient Time: Total time managing care of this patient today ____ minutes. Quality Stroke Does the patient have a stroke diagnosis?: No VTE Prior VTE?: Yes VTE Risk Level:: Medical - moderate - high VTE Device Contraindication: Treatment Not Indicated VTE Drug Contraindication: N/A - Med Ordered
--- NOTE | 2023-04-28 13:06 | MHC.CLN ---
NUTRITION DIET=REGULAR WITH 1000 ML FLUID RESTRICTION. PATIENT LIKES ENSURE SUPPLEMENT, CHOCOLATE FLAVOR. ADDING ENSURE MAX PROTEIN BID. EACH 11 OZ SERVING PROVIDES 300 ML FREE WATER, 150 KCALS, 30 G PROTEIN. PATIENT REPORTS GOOD APPETITE. REVIEW OF WEIGHT HX SHOWS NO SIGNIFICANT WEIGHT CHANGE X ONE YEAR. NUTRITION DX NON SEVERE MALNUTRITION IN THE CONTEXT OF CHRONIC ILLNESS. [id number], LOW. FLUID RESTRICTION IN PLACE. FOLLOW FOR INTAKE AND SODIUM LABS.
[2023-04-28 14:19] LABS: Sodium 130 mmol/L (135-145)
[2023-04-28 16:00] VITALS: BP 132/73; PULSE 75; RESP 18; TEMP 36.3; O2SAT 99
[2023-04-28] MEDS: 0.9 % Sodium Chloride Flush 3 ML SYRINGE IVFLUSH ×2 (16:47→19:39)
[2023-04-28 17:06] LABS: Sodium 121 mmol/L (135-145)
[2023-04-28] MEDS: Urea 15 GM POWDER PO (19:39)
[2023-04-28 20:00] VITALS: BP 148/78; PULSE 73; RESP 18; TEMP 36.2; O2SAT 100
[2023-04-28 20:59] LABS: Sodium 122 mmol/L (135-145)
[2023-04-29] VITALS (8 sets, daily range): BP systolic 90–178; BP diastolic 58–86; PULSE 70–86; RESP 12–18; TEMP 36–36.9; O2SAT 93–100
[2023-04-29] MEDS: Levothyroxine Sodium 75 MCG TABLET PO (05:15)
[2023-04-29 06:51] LABS: Anion Gap 12 (12-20); Blood Urea Nitrogen 14 mg/dL (9-16); Calcium 8.3 mg/dL (8.4-10.2); Carbon Dioxide 20 mmol/L (22-29); Chloride 95 mmol/L (96-108); Creatinine Clr Calc Pharmacy 118.7; Estimated Glomerular Filt Rate > 60; Glucose Random 70 mg/dL (60-115); Potassium 3.7 mmol/L (3.3-5.1); Sodium 123 mmol/L (135-145)
[2023-04-29] MEDS: Urea 15 GM POWDER PO (08:10)
[2023-04-29] MEDS: 0.9 % Sodium Chloride Flush 3 ML SYRINGE IVFLUSH (08:11)
--- NOTE | 2023-04-29 09:31 | PM.PNNEP ---
Subjective Subjective Date of Service: 04/29/23 Interval history: Seen and examined, events noted Physical Exam Vital Signs: Vital Signs: Last Vital Signs Temp 98.4 F 04/29/23 07:28 Pulse 71 04/29/23 07:28 Resp 16 04/29/23 07:28 BP 137/60 04/29/23 07:28 Pulse Ox 93 04/29/23 07:28 O2 Del Method Room Air 04/29/23 07:28 BMI result Body Mass Index 17.4 Const: Other: Constitutional: Alert, in no distress, frail looking Mental Status: Oriented to person, place and time. Eyes: Pupils are equal, round and reactive to light. Ear, Nose and Throat: Oropharynx clear, mucous membranes moist. Respiratory: Clear to auscultation. No wheezing, rales or rhonchi. Cardiovascular: S1 S2 regular. No murmurs, rubs or gallops. Gastrointestinal: Abdomen soft, non-tender, non-distended. Normal bowel sounds.? Neurologic: Cranial nerves II-XII grossly intact. No focal neurological deficits. Moves all extremities spontaneously.? Skin: No rashes or lesions.? Musculoskeletal: No cyanosis or clubbing. Psychiatric: Normal mood and affect? Objective Data Labs 04/29/23 05:57 04/29/23 05:57 Labs: Laboratory Results - last 24 hr 04/28/23 04/28/23 04/28/23 13:57 16:44 20:27 WBC RBC Hgb Hct MCV MCH MCHC RDW Plt Count MPV Absolute Nucleated RBC Nucleated RBC % (auto) Hold Purple Top Sodium 130 L 121 L 122 L Potassium Chloride Carbon Dioxide Anion Gap BUN Creatinine Estim Creat Clear Calc Estimated GFR Random Glucose Calcium 04/29/23 05:57 WBC 2.2 L RBC 2.58 L Hgb 9.1 L Hct 25.3 L MCV 98.1 H MCH 35.3 H MCHC 36.0 RDW 18.6 H Plt Count 151 L MPV 9.6 Absolute Nucleated RBC 0.000 Nucleated RBC % (auto) 0.0 Hold Purple Top SEE NOTE Sodium 123 L Potassium 3.7 Chloride 95 L Carbon Dioxide 20 L Anion Gap 12 BUN 14 Creatinine 0.49 L Estim Creat Clear Calc 118.7 Estimated GFR > 60 Random Glucose 70 Calcium 8.3 L Procedures Date of Service Date of Service: 04/29/23 Assessment & Plan Assessment and plan (1) Renal cell carcinoma: Status: Acute Plan 72 year old male with a PMH of Renal Cell Ca, 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 Progress Note: Quality Stroke Does the patient have a stroke diagnosis?: No
--- NOTE | 2023-04-29 10:41 | HO.PM.IMPN ---
Subjective Subjective Date of Service: 04/29/23 Interval History: seen and examined this morning patient initially feeling well and then shortly after leaving room said he wasn't feeling well. he reported feeling a little dizzy and nauseated. shortly after he vomiting and was assisted back to bed. his POC was 114, initially blood pressure reading low, around 90 systolic. After getting back in bed he reported feeling better. Review of Systems Review of Systems: Yes all other systems are reviewed and are negative Constitutional Constitutional: Denies chills and Denies fever(s) Cardiovascular Cardiovascular: Denies chest pain, Denies palpitations and Denies dyspnea Respiratory Respiratory: Denies cough and Denies dyspnea Gastrointestinal Gastrointestinal: Denies abdominal pain, Reports nausea and Reports vomiting Endocrine Endocrine: Denies palpitations Physical Exam Vital Signs: Vital Signs: Last Vital Signs Temp 98.4 F 04/29/23 07:28 Pulse 71 04/29/23 07:28 Resp 16 04/29/23 07:28 BP 163/74 H 04/29/23 10:20 Pulse Ox 93 04/29/23 07:28 O2 Del Method Room Air 04/29/23 07:28 BMI result Body Mass Index 17.4 Const: Other: thin, frail, chronically ill appearing General: alert and awake Nutritional Appearance: thin Orientation/consciousness: patient oriented x3 Chest: Other: port present right chest wall no surrounding erythema Resp: Effort & Inspection: normal respiratory effort, no respiratory distress and no use of accessory muscles Cardio: Rate: regular rate GI: Other: colostomy present Inspection: No distended Palpation (GI): Soft to palpation and nontender Neuro: Other: grossly nonfocal General: patient oriented x3 and moves all extremities Objective Data Active Medications Apixaban (Apixaban 5 Mg Tablet) 5 mg PO BID [facility] Last Admin: 04/29/23 08:10 Dose: 5 mg Documented By: DEBORAH Ascorbic Acid (Ascorbic Acid 500 Mg Tablet) 500 mg PO DAILY [facility] Last Admin: 04/29/23 08:11 Dose: 500 mg Documented By: DEBORAH Ferrous Sulfate (Ferrous Sulfate 324 Mg Tablet.) 324 mg PO DAILY [facility] Last Admin: 04/29/23 08:11 Dose: 324 mg Documented By: DEBORAH Sodium Chloride (Ns) 500 mls @ 500 mls/hr IV .Q1H ONE Stop: 04/29/23 11:10 Last Admin: 04/29/23 10:21 Dose: 500 mls/hr Documented By: DEBORAH Levothyroxine Sodium (Levothyroxine Sodium 75 Mcg Tablet) 75 mcg PO DAILY@0600 [facility] Last Admin: 04/29/23 05:15 Dose: 75 mcg Documented By: BRIGETTE Midodrine (Midodrine Hcl 5 Mg Tablet) 5 mg PO TIDWM@0900,1300,1800 [facility] Last Admin: 04/28/23 13:19 Dose: Not Given Documented By: PABLO Non-Admin Reason: Elevated Blood Pressure Sodium Chloride (Sodium Chloride Tab 1 Gm Tablet) 2 gm PO BID [facility] Last Admin: 04/29/23 08:11 Dose: 2 gm Documented By: DEBORAH Sodium Chloride (0.9 % Sodium Chloride Flush 3 Ml Syringe) 3 ml IVFLUSH QSHIFT [facility] Last Admin: 04/29/23 08:11 Dose: 3 ml Documented By: DEBORAH Sodium Chloride (0.9 % Sodium Chloride Flush 3 Ml Syringe) 3 ml IVFLUSH QSHIFT [facility] Last Admin: 04/29/23 07:22 Dose: Not Given Documented By: DEBORAH Non-Admin Reason: Duplicate Order Urea (Urea 15 Gm Powder) 15 gm PO BID [facility] Last Admin: 04/29/23 08:10 Dose: 15 gm Documented By: DEBORAH Labs 04/29/23 05:57 04/29/23 05:57 Labs: Laboratory Results - last 24 hr 04/29/23 04/29/23 05:57 10:05 MCV 98.1 H MCH 35.3 H MCHC 36.0 RDW 18.6 H Plt Count 151 L MPV 9.6 Absolute Nucleated RBC 0.000 Nucleated RBC % (auto) 0.0 Hold Purple Top SEE NOTE Anion Gap 12 Estim Creat Clear Calc 118.7 Estimated GFR > 60 POC Glucose 114 Random Glucose 70 Calcium 8.3 L Assessment and Plan (1) Acute hyponatremia: Status: Acute (2) Renal cell carcinoma: Status: Acute Plan 72 year old male with a PMH of Renal Cell Ca, 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 sodium 123 this am Fluid restriction of 1 L check urinary labs (sodium 124, osmo 317) on chronic sodium chloride tabs at baseline - was previously on TID at home, currently getting BID started on urea 10 - vomiting after receiving am dose nephrology following Sodium level bid, will check repeat now given vomiting after am meds History of PE continue eliquis Mild protein calorie malnutriton add Ensure to diet Metastatic cancer, renal cell carcinoma, rectosigmoid carcinoma, brain and pulm Mets with pancytopenia - likely due to cancer/chemo seen by hem/onc ?candidate for palliative vs hospice Chronic anemia as above likely related to cancer/chemo heme + likely r/t to rectosigmoid cancer no evidence of active bleeding, H/H stable needs AC with Eliquis due to h/o PE Hypothyroidism continue Levothyroxine HTN on midodrine at baseline, but BP running high so has been on hold BP soft this am, will follow closely Chronic orthostatic hypotension elevated blood pressure readings Hold midodrine Full Code - discussed with son and (both HCP) at the bedside about overall goals of care. patient is currently undergoing chemo but seems to take a lot out of him. in the past, the patient has not wanted to go onto hospice care. I recommended they discuss goals of care. Currently patient is listed as full code, they are looking for [facility] that was previously filled out. DVT pptx, Eliquis Attending Dr. Canales continue hospitals stay for Hyponatremia management, frequent labs. Time Spent With Patient Time: Total time managing care of this patient today ____ minutes. Quality Stroke Does the patient have a stroke diagnosis?: No VTE Prior VTE?: Yes VTE Risk Level:: Medical - moderate - high VTE Device Contraindication: Treatment Not Indicated VTE Drug Contraindication: N/A - Med Ordered
[2023-04-29 11:34] LABS: Anion Gap 14 (12-20); Blood Urea Nitrogen 19 mg/dL (9-16); Carbon Dioxide 17 mmol/L (22-29); Chloride 98 mmol/L (96-108); Creatinine Clr Calc Pharmacy 111.8; Estimated Glomerular Filt Rate > 60; Glucose Random 89 mg/dL (60-115); Potassium 3.6 mmol/L (3.3-5.1); Sodium 125 mmol/L (135-145)
[2023-04-30] VITALS (8 sets, daily range): BP systolic 124–140; BP diastolic 62–80; PULSE 79–92; RESP 15–20; TEMP 36.1–36.4; O2SAT 94–100
[2023-04-30 07:48] LABS: Anion Gap 12 (12-20); Blood Urea Nitrogen 11 mg/dL (9-16); Calcium 8.2 mg/dL (8.4-10.2); Carbon Dioxide 22 mmol/L (22-29); Chloride 99 mmol/L (96-108); Creatinine Clr Calc Pharmacy 111.8; Estimated Glomerular Filt Rate > 60; Glucose Random 73 mg/dL (60-115); Potassium 3.8 mmol/L (3.3-5.1); Sodium 129 mmol/L (135-145)
--- NOTE | 2023-04-30 09:52 | MHC.CLN ---
F/U DIET=REGULAR WITH 1000 ML FLUID RESTRICTION. PATIENT LIKES ENSURE SUPPLEMENT, CHOCOLATE FLAVOR. RECEIVING ENSURE MAX PROTEIN BID WITH EACH 11 OZ SERVING PROVIDING 300 ML FREE WATER, 150 KCALS, 30 G PROTEIN. EATING 50-100%. [id number], LOW. FLUID RESTRICTION IN PLACE. FOLLOW FOR INTAKE AND SODIUM LABS.
--- NOTE | 2023-04-30 13:02 | MHC.CM.PN ---
Per MD rounds, pt is not ready to discharge. [facility] that [facility] has [facility] for LTC or Hospice in a facility. Discharge planning was discussed with the patient and his family. The patient may want to go home with services. Facility preferences obtained and referrals sent. Patient will transport home with assist from his brothers.
--- NOTE | 2023-04-30 15:24 | HO.PM.IMPN ---
Subjective Subjective Date of Service: 04/30/23 Interval History: seen and examined this morning follow up for hyponatremia awake, alert, sitting up in bed, no overnight events no specific complaints this morning, feeling better no further episodes of vomiting Review of Systems Review of Systems: Yes all other systems are reviewed and are negative Constitutional Constitutional: Denies chills and Denies fever(s) Cardiovascular Cardiovascular: Denies dyspnea Respiratory Respiratory: Denies cough and Denies dyspnea Gastrointestinal Gastrointestinal: Denies abdominal pain, Denies nausea and Denies vomiting Physical Exam Vital Signs: Vital Signs: Last Vital Signs Temp 96.9 F 04/30/23 11:13 Pulse 79 04/30/23 12:59 Resp 16 04/30/23 11:13 BP 128/62 04/30/23 12:59 Pulse Ox 100 04/30/23 12:59 O2 Del Method Room Air 04/30/23 11:13 BMI result Body Mass Index 17.4 Const: Other: thin, frail, chronically ill appearing General: alert and awake Nutritional Appearance: thin Orientation/consciousness: patient oriented x3 Chest: Other: port present right chest wall no surrounding erythema Resp: Effort & Inspection: normal respiratory effort, no respiratory distress and no use of accessory muscles Cardio: Rate: regular rate GI: Other: colostomy present Inspection: No distended Palpation (GI): Soft to palpation and nontender Neuro: Other: grossly nonfocal General: patient oriented x3 and moves all extremities Objective Data Active Medications Apixaban (Apixaban 5 Mg Tablet) 5 mg PO BID [facility] Last Admin: 04/30/23 07:59 Dose: 5 mg Documented By: DEBORAH Ascorbic Acid (Ascorbic Acid 500 Mg Tablet) 500 mg PO DAILY [facility] Last Admin: 04/30/23 07:59 Dose: 500 mg Documented By: DEBORAH Ferrous Sulfate (Ferrous Sulfate 324 Mg Tablet.) 324 mg PO DAILY [facility] Last Admin: 04/30/23 07:59 Dose: 324 mg Documented By: DEBORAH Levothyroxine Sodium (Levothyroxine Sodium 75 Mcg Tablet) 75 mcg PO DAILY@0600 [facility] Last Admin: 04/30/23 05:31 Dose: 75 mcg Documented By: BRIGETTE Midodrine (Midodrine Hcl 5 Mg Tablet) 5 mg PO TIDWM@0900,1300,1800 [facility] Last Admin: 04/28/23 13:19 Dose: Not Given Documented By: PABLO Non-Admin Reason: Elevated Blood Pressure Sodium Bicarbonate (Sodium Bicarbonate 650 Mg Tablet) 650 mg PO BID [facility] Stop: 04/30/23 23:59 Last Admin: 04/30/23 07:59 Dose: 650 mg Documented By: DEBORAH Sodium Chloride (Sodium Chloride Tab 1 Gm Tablet) 2 gm PO BID [facility] Last Admin: 04/30/23 07:58 Dose: 2 gm Documented By: DEBORAH Sodium Chloride (0.9 % Sodium Chloride Flush 3 Ml Syringe) 3 ml IVFLUSH QSHIFT [facility] Last Admin: 04/30/23 07:58 Dose: 3 ml Documented By: DEBORAH Sodium Chloride (0.9 % Sodium Chloride Flush 3 Ml Syringe) 3 ml IVFLUSH QSHIFT [facility] Last Admin: 04/30/23 14:46 Dose: Not Given Documented By: DEBORAH Non-Admin Reason: Duplicate Order Labs 04/29/23 05:57 04/30/23 06:19 Labs: Laboratory Results - last 24 hr 04/29/23 04/30/23 19:13 06:19 Anion Gap 14 12 Estim Creat Clear Calc 118.7 111.8 Estimated GFR > 60 > 60 Random Glucose 96 73 Calcium 8.2 L 8.2 L Assessment and Plan (1) Acute hyponatremia: Status: Acute Plan 72 year old male with a PMH of Renal Cell Ca, 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 sodium improving 129 this am. discussed with nephrology, rate of increase appropriate continue fluid restriction of 1 L on chronic sodium chloride tabs at baseline unable to tolerate urea, sodium bicarb added, d/c after today nephrology following - can reduce checking sodium levels to daily History of PE continue eliquis Mild protein calorie malnutriton continue Ensure supplementation Metastatic cancer, renal cell carcinoma, rectosigmoid carcinoma, brain and pulm Mets with pancytopenia - likely due to cancer/chemo seen by hem/onc ?candidate for palliative vs hospice - discussed with patient, wants to continue treatment outpatient follow up with Dr. Cisneros Chronic anemia as above likely related to cancer/chemo heme + likely r/t to rectosigmoid cancer no evidence of active bleeding, H/H stable needs AC with Eliquis due to h/o PE Hypothyroidism continue Levothyroxine HTN on midodrine at baseline, but BP running high so has been on hold BP soft this am, will follow closely Chronic orthostatic hypotension elevated blood pressure readings Hold midodrine code status - Full Code - discussed with son and (both HCP) at the bedside about overall goals of care. patient is currently undergoing chemo but seems to take a lot out of him. in the past, the patient has not wanted to go onto hospice care. I recommended they discuss goals of care. Today patient indicates he wants to remain full code and continue treatment with chemo and is planning to go to [facility] for second opinion regarding treatment. DVT pptx, Eliquis Attending Dr. Poon dispo - seen by PT, recommend home with family support when medically ready continue hospitals stay for Hyponatremia management Time Spent With Patient Time: Total time managing care of this patient today ____ minutes. Quality Stroke Does the patient have a stroke diagnosis?: No VTE Prior VTE?: Yes VTE Risk Level:: Medical - moderate - high VTE Device Contraindication: Treatment Not Indicated VTE Drug Contraindication: N/A - Med Ordered
--- NOTE | 2023-04-30 15:33 | PM.PNNEP ---
Subjective Subjective Date of Service: 04/30/23 Interval history: no acute events Physical Exam Vital Signs: Vital Signs: Last Vital Signs Temp 96.9 F 04/30/23 11:13 Pulse 79 04/30/23 12:59 Resp 16 04/30/23 11:13 BP 128/62 04/30/23 12:59 Pulse Ox 100 04/30/23 12:59 O2 Del Method Room Air 04/30/23 11:13 BMI result Body Mass Index 17.4 Const: Other: Constitutional: Alert, in no distress, frail looking Mental Status: Oriented to person, place and time. Eyes: Pupils are equal, round and reactive to light. Ear, Nose and Throat: Oropharynx clear, mucous membranes moist. Respiratory: Clear to auscultation. No wheezing, rales or rhonchi. Cardiovascular: S1 S2 regular. No murmurs, rubs or gallops. Gastrointestinal: Abdomen soft, non-tender, non-distended. Normal bowel sounds.? Neurologic: Cranial nerves II-XII grossly intact. No focal neurological deficits. Moves all extremities spontaneously.? Skin: No rashes or lesions.? Musculoskeletal: No cyanosis or clubbing. Psychiatric: Normal mood and affect? 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 For now doing well with PO NaCl and PO NaBicarb. TSH and am cortisol in good standing. H/O orhtostatic hyptension: ok to cont midrdine if needed Will follow w team Time Spent With Patient Time: Total time managing care of this patient today ____ minutes. Progress Note: Quality Stroke Does the patient have a stroke diagnosis?: No
[2023-05-01] VITALS: BP 144/77; PULSE 97; RESP 16; TEMP 36.6; O2SAT 96
[2023-05-01 00:47] LABS: OBS Int Ctl Valid YES; OBS1 POSITIVE (NEGATIVE)
[2023-05-01 04:00] VITALS: BP 120/59; PULSE 87; RESP 16; TEMP 36.4; O2SAT 95
[2023-05-01 05:54] LABS: Anion Gap 11 (12-20); Blood Urea Nitrogen 12 mg/dL (9-16); Calcium 8.2 mg/dL (8.4-10.2); Carbon Dioxide 23 mmol/L (22-29); Chloride 104 mmol/L (96-108); Creatinine Clr Calc Pharmacy 100.3; Estimated Glomerular Filt Rate > 60; Glucose Random 80 mg/dL (60-115); Potassium 4.3 mmol/L (3.3-5.1); Sodium 134 mmol/L (135-145)
[2023-05-01 07:10] VITALS: BP 132/66; PULSE 83; RESP 16; TEMP 37.1; O2SAT 97
--- NOTE | 2023-05-01 11:01 | PM.PNNEP ---
Subjective Subjective Date of Service: 05/01/23 Interval history: VSS Na better Physical Exam Vital Signs: Vital Signs: Last Vital Signs Temp 98.7 F 05/01/23 07:10 Pulse 83 05/01/23 07:10 Resp 16 05/01/23 07:10 BP 132/66 05/01/23 07:10 Pulse Ox 97 05/01/23 07:10 O2 Del Method Room Air 05/01/23 07:10 BMI result Body Mass Index 17.4 Const: Other: Constitutional: Alert, in no distress, frail looking Mental Status: Oriented to person, place and time. Eyes: Pupils are equal, round and reactive to light. Ear, Nose and Throat: Oropharynx clear, mucous membranes moist. Respiratory: Clear to auscultation. No wheezing, rales or rhonchi. Cardiovascular: S1 S2 regular. No murmurs, rubs or gallops. Gastrointestinal: Abdomen soft, non-tender, non-distended. Normal bowel sounds.? Neurologic: Cranial nerves II-XII grossly intact. No focal neurological deficits. Moves all extremities spontaneously.? Skin: No rashes or lesions.? Musculoskeletal: No cyanosis or clubbing. Psychiatric: Normal mood and affect? Objective Data Labs 04/29/23 05:57 05/01/23 05:27 Labs: Laboratory Results - last 24 hr 05/01/23 05/01/23 00:23 05:27 Hold Purple Top SEE NOTE Sodium 134 L Potassium 4.3 Chloride 104 Carbon Dioxide 23 Anion Gap 11 L BUN 12 Creatinine 0.58 Estim Creat Clear Calc 100.3 Estimated GFR > 60 Random Glucose 80 Calcium 8.2 L Stool Occult Blood POSITIVE Procedures Date of Service Date of Service: 05/01/23 Assessment & Plan Assessment and plan (1) Renal cell carcinoma: Status: Acute Plan 72 year old male with a PMH of Renal Cell Ca, Colon Ca with mets to Lungs + pitituary, h/o PE on eliquis, hisoty of hyponatremia here with Hyponatremia of 121 noted on ouptient lab Euvolemic HypoNa: c/w SIADH; Urea started but did not tolerate. Responded very well to NaCl and NaBicarb solute. Now can D/C with 1g BID NaCl chronically. Hold Bicarb going forward Time Spent With Patient Time: Total time managing care of this patient today ____ minutes. Progress Note: Quality Stroke Does the patient have a stroke diagnosis?: No
[2023-05-01 11:36] VITALS: BP 160/77; PULSE 82; RESP 16; TEMP 36.8; O2SAT 99
--- NOTE | 2023-05-01 11:49 | PM.DS ---
DS: Providers Provider Date of Service: 05/01/23 Date of admission: 04/27/23 21:46 Date of discharge: 05/01/23 Primary care physician: Drew José Consults: 04/27/23 21:45 Consult to Nephrology Routine Consulting Provider: Steven Camacho Reason for consultation: Hyponatremia Has provider been notified: No 04/28/23 07:27 Consult to Hematology / Oncology Routine Consulting Provider: Phoebe Cisneros Reason for consultation: hyponatremia, known to you Attending physician on discharge: Royer Lockwood Discharging clinician: Hyacinth Travis DS: Diagnosis Discharge Diagnosis (1) Acute hyponatremia: Status: Acute (2) Renal cell carcinoma: Status: Acute (3) Anemia: Status: Acute DS: Summary Hospital Course Hospital Course: From H&P on day of admission A 72-year-old male with PMH of Renal Cell Ca and 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 He is on chemotherapy overseen by Dr. Cisneros and is due for chemo tomorrow, 04/28. He had a routine lab today and was called to the ED because of a low sodium level of 121. He is fatigued otherwise was doing fine: no nausea or vomiting, diarrhea, headache, fever, or SOB. Repeat sodium level in ED is still 121 and given 1 L NS.? 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 He was seen by nephrology during hospitalization. Patient was continued on baseline dose of sodium chloride and fluid restriction of 1 L. Sodium remained low, he was started on urea which he did not tolerate. He was given two days of sodium bicarb and sodium slowly improved. Sodium back near normal range at 134 on day of discharge. He is feeling better and eager to return home. He was evaluated by Physical therapy who recommended for the patient return home. Patient did not want to go to rehab and did not want home physical therapy services. For pulmonary embolism patient was continued on home dose of Eliquis. His H/ H was noted to be below his baseline and he was noted to have microscopic blood in his stool. He had no over bleeding noted and has history of rectosigmoid adenocarcinoma and requires eliquis for diagnosis of PE. Recommend outpatient follow up for anemia. He has repeat labs scheduled for mid week and will follow up with oncologist. For protein calorie malnutrition, recommend to continue drinking ensure shakes. Blood pressure has been normal or slightly on zachery side, therefore his dose of midodrine was placed on hold. He was able to ambulate with no dizziness. He was evaluated by PT as above. Recommended to call and schedule follow up with PCP. Time Spent with Patient Time attestation: Total time managing care of this patient today ____ minutes. Discharge coordination time: Greater than 30 minutes Quality: Safe Use of Opioids Does Pt have an Active Cancer Diagnosis on the Problem List?: Yes Opioid Measure Date for [facility] Report: 04/01/23 Opioid Measure Time for [facility] Report: 12:01 Quality: Stroke Does the patient have a stroke diagnosis?: No Physical Exam Vital Signs: Vital Signs: Last Vital Signs Temp 98.3 F 05/01/23 11:36 Pulse 82 05/01/23 11:36 Resp 16 05/01/23 11:36 BP 160/77 H 05/01/23 11:36 Pulse Ox 99 05/01/23 11:36 O2 Del Method Room Air 05/01/23 11:36 BMI result Body Mass Index 17.4 Const: Other: thin, frail, chronically ill appearing General: alert and awake Nutritional Appearance: thin Orientation/consciousness: patient oriented x3 Chest: Other: port present right chest wall no surrounding erythema Resp: Effort & Inspection: normal respiratory effort, no respiratory distress and no use of accessory muscles Cardio: Rate: regular rate GI: Other: colostomy present Inspection: No distended Palpation (GI): Soft to palpation and nontender Neuro: Other: grossly nonfocal General: patient oriented x3 and moves all extremities DS: Data Data Completed and Pending Completed studies during hospitalization [Text1]: Procedures Bypass Sigmoid Colon to Cutaneous, Open Approach (09/02/21) Drainage of Right Kidney, Percutaneous Approach, Diagnostic (09/02/21) Excision of Bladder, Open Approach (09/02/21) Excision of Rectum, Open Approach (09/02/21) Excision of Right Kidney, Percutaneous Approach, Diagnostic (09/02/21) Excision of Sigmoid Colon, Open Approach (09/02/21) Excision of Sigmoid Colon, Via Natural or Artificial Opening Endoscopic, Diagnostic (09/02/21) Release Peritoneum, Open Approach (12/30/21) Removal of Drainage Device from Peritoneal Cavity, Open Approach (12/30/21) Removal of Infusion Device from Great Vessel, Open Approach (07/10/22) Removal of Tunneled Vascular Access Device from Trunk Subcutaneous Tissue and Fascia, Open Approach (07/10/22) Repair Bladder, Open Approach (09/02/21) Labs on day of discharge: Laboratory Results - last 24 hr 05/01/23 05/01/23 00:23 05:27 Hold Purple Top SEE NOTE Sodium 134 L Potassium 4.3 Chloride 104 Carbon Dioxide 23 Anion Gap 11 L BUN 12 Creatinine 0.58 Estim Creat Clear Calc 100.3 Estimated GFR > 60 Random Glucose 80 Calcium 8.2 L Stool Occult Blood POSITIVE Discharge Plan Discharge Anticipated Discharge Date/Time: 05/01/23 11:35 Patient Disposition: Home, Self-Care Discharge Diagnosis: hyponatremia, SIADH mild protein calorie malnutrition Referrals: Drew José [Other] - 1 Week Discharge Medications: Continued levothyroxine 75 mcg capsule 75 mcg PO DAILY 30 Days Qty: 30 3RF Eliquis 5 mg tablet 5 mg PO BID Qty: 60 3RF sodium chloride 1,000 mg tablet,soluble 2,000 mg PO BID ascorbate calcium (vitamin C) 500 mg tablet 500 mg PO DAILY ferrous sulfate 325 mg (65 mg iron) tablet 325 mg PO DAILY Held midodrine 5 mg tablet 5 mg PO TIDWM@0900,1300,1800 Hold Instructions: blood pressure stable hold for now, follow up with pcp. dexamethasone 4 mg tablet 1 tab PO BID Qty: 30 3RF Hold Instructions: hold until follow up with oncology Rx Instructions: Take 1 tablet twice a day on the 2 days after chemo. capecitabine [Xeloda] 500 mg tablet 1,000 mg PO BID Qty: 56 5RF Hold Instructions: hold until follow up with oncology Rx Instructions: Take 1,000 mg (2 tabs) BID for 14 days, beginning w/ each new chemo cycle, then stop for 7 days, and begin again w/ next chemo cycle. Discharge Orders: Discharge Order (Routine); Ordered 05/01/23 Ordered By: Hyacinth Travis Activity on Discharge: As tolerated Stand Alone Forms: Patient Portal Discharge page Other Ambulatory Orders: Basic Metabolic Panel (Routine) Timeframe: [id number] Facility: [facility] - Location: Laboratory Ordered By: Hyacinth Travis Care Plan Goals: see below Health Concerns: low sodium levels anemia Plan of Treatment: for low sodium - continue previous dose of sodium chloride keep lab work scheduled for this week call to schedule follow up appointment with PCP continue drinking ensure shakes blood pressure has not been low, don't take midodrine for now. discuss with PCP need to continue Assessment: see discharge summary
--- NOTE | 2023-05-01 11:56 | MHC.CM.PN ---
Addendum entered by Kristen Eason 05/01/23 13:08: PT AND NOW AGREEABLE TO LONGTERM SERVICES PT WILL DC WITH [facility] Original Note: PT WILL DC HOME WITH FAMILY SUPPORT PT/FAMILY DECLINING SERVICES FAMILY TO TRANSPORT
--- NOTE | 2023-05-01 12:47 | W.MHC.F2F ---
Service Date Service Date: 05/01/23 Encounter Date of encounter: 05/01/23 Reasons for Services Signs and symptoms assessed: needs shelter for close blood pressure monitoring, med adjustments Reason for shelter: medication management MD Overseeing Care: Drew Franklin Homebound: Leaving the home is medically contraindicated at this time without the asist of a device and/or another person due th the listed conditions above and below. Reason homebound: unsteady gait / fall risk and weakness related to hospital stay Certification: Based on the above findings, I certify that this patient is confined to the home and needs intermittent shelter care, physical therapy and/or speech therapy, or continues to need occupational therapy. The patient is under my care, and I have initiated the establishment of the plan of care. The patient will be followed by a physician who will periodically review the plan of care. Time Spent With Patient Time: Total time managing care of this patient today ____ minutes.
== END 2023-05-01 13:51 | disposition home health service (06) | DRG 643 ==
LOC: HO.ED 20:00 → HO.EDOVER 21:53 → HO.S3 23:35
PROVIDERS: Internal Medicine Nephrology; Nurse Practitioner Acute Care; Admitting Provider Internal Medicine; Emergency Provider Emergency Medicine; PCP Internal Medicine; Visit Provider Physician Assistant Medical
DX: E22.2 Syndrome of inappropriate secretion of antidiuretic hormone (principal); D61.810 Antineoplastic chemotherapy induced pancytopenia; C19 Malignant neoplasm of rectosigmoid junction; C78.01 Secondary malignant neoplasm of right lung; E44.1 Mild protein-calorie malnutrition; Z68.1 Body mass index [BMI] 19.9 or less, adult; C79.89 Secondary malignant neoplasm of other specified sites; C79.01 Secondary malignant neoplasm of right kidney and renal pelvis; E03.8 Other specified hypothyroidism; E86.0 Dehydration; I10 Essential (primary) hypertension; I95.1 Orthostatic hypotension; T45.1X5A Adverse effect of antineoplastic and immunosuppressive drugs, initial encounter; D63.0 Anemia in neoplastic disease; Z20.822 Contact with and (suspected) exposure to COVID-19; Z86.711 Personal history of pulmonary embolism; Z87.891 Personal history of nicotine dependence; Z79.01 Long term (current) use of anticoagulants; Z79.890 Hormone replacement therapy; Z79.899 Other long term (current) drug therapy
CPT/HCPCS: 0241U; 36415; 71045; 80048; 80051; 80076; 81003; 82272; 82436; 82947; 83690; 83880; 83930; 83935; 84133; 84295; 84300; 84484; 85025; 85027; 93005; 97162; 99285; J1642

== ENCOUNTER → 2023-04-27 18:23 | Outpatient (BNV) | payer OTHER, SELFPAY | PROVIDERS: Emergency Provider Emergency Medicine; Visit Provider Internal Medicine | DX: E87.1 Hypo-osmolality and hyponatremia (principal); C64.9 Malignant neoplasm of unspecified kidney, except renal pelvis; D64.9 Anemia, unspecified | CPT/HCPCS: 99223; 99232; 99233; 99239; G0180 ==

== ENCOUNTER → 2023-04-27 21:46 | Outpatient (BNV) | payer OTHER, SELFPAY | PROVIDERS: Admitting Provider Internal Medicine; Emergency Provider Emergency Medicine; Visit Provider Internal Medicine Medical Oncology | DX: C18.7 Malignant neoplasm of sigmoid colon (principal); C64.1 Malignant neoplasm of right kidney, except renal pelvis; C79.31 Secondary malignant neoplasm of brain | CPT/HCPCS: 99222 ==

== ENCOUNTER 2023-05-04 08:08 | Outpatient (AMB) | payer OTHER, SELFPAY ==
--- NOTE | 2023-05-04 08:27 | MHC.OFFVIS ---
Intake Intake Visit Reasons: 6m follow up Intake Note: Patient presents today for a 6mo follow-up on Renal Cancer: Meds- None Allergies to Antibiotic- No Known Allergies Blood Thinner- Eliquis Supervisor Smoke Control Required: No Accompanied by: Self / Same As Patient Allergies No Known Allergies Allergy (Verified 05/04/23 08:31) HPI HPI Comments History of Present Illness Details David is a pleasant male. He is a patient of Dr. Charles. 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 Six month review If it should continue to enlarge will need multi needle cryotherapy 10/15 PET-CT restaging colon cancer. Lung nodule positive. 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 [employer] Medical History (Updated 05/04/23 @ 09:11 by Humberto Clark MD) Chronic orthostatic hypotension Hypothyroidism Chronic hyponatremia 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 Renal cell carcinoma Rectosigmoid cancer Pituitary lesion Fever of unknown origin Mass of pituitary Headache Colostomy in place HTN (hypertension) [place]-vesical fistula Surgical History History of removal of Port-a-Cath H/O hernia repair S/P colon resection Family History Mother Parkinsons disease Father ESRD (end stage renal disease) Other No family history of cancer Social History Household Members: Spouse Household Members Other:: 1 Housing: House Are you a primary home care assistant to a significant other at home: No Do you presently have visiting nurse or other home services: No Alcohol intake: never Patient Tobacco Use Status: Former Tobacco user Quit Date: 30 y.o Tobacco use type: Cigarette Years Smoked: 30 years ago e-Cigarette/Vaping Use: Never Used Second Hand Smoke Exposure: No service: Yes Current occupational status: employed and retired Cognitive needs: No Hearing needs: No Vision needs: No Review of Systems Const Denies chills and Denies fever(s) Card Reports no additional complaints and Denies syncope Resp Denies cough GI Denies abdominal pain and Denies heartburn Reports as per HPI and Denies change in libido Neuro Denies syncope Psych Denies change in libido Endo Denies change in libido Physical Exam Const General: cooperative, healthy appearing, comfortable and no acute distress Orientation/consciousness: patient oriented x3 HEENT Face and sinus: Yes normal facial exam Mouth: moist mucous membranes Neck Neck: Yes normal visual inspection, Yes full ROM and Yes trachea midline Chest Chest palpation & inspection: normal inspection of the chest Resp Effort & Inspection: normal respiratory effort, able to speak in complete sentences and no respiratory distress GI Inspection: Yes normal to inspection Back/Spine/Pelvis Cervical Spine: normal cervical lordosis Thoracic/Lumbar Spine: thoracic and lumbar spine normal to inspection Skin General skin exam: no rashes or lesions noted Neuro General: patient oriented x3, gait normal, tone normal and moves all extremities Extrem General: Yes normal to inspection and Yes capillary refill normal Results AMB Urinalysis, Automated UA Leukoctes 0 Sylvester/uL Last Edit by MAYURI Weathers on 05/04/23 08:51 UA Nitrite Negative Last Edit by MAYURI Weathers on 05/04/23 08:51 UA Urobilinogen 1 mg/dL Last Edit by MAYURI Weathers on 05/04/23 08:51 UA Protein 15 mg/dL Last Edit by MAYURI Weathers on 05/04/23 08:51 UA pH 6.0 Last Edit by MAYURI Weathers on 05/04/23 08:51 UA Blood 0 Mynor/uL Last Edit by MAYURI Weathers on 05/04/23 08:51 UA Specific [place] 1.020 Last Edit by MAYURI Weathers on 05/04/23 08:51 UA Ketone Negative Last Edit by MAYURI Weathers on 05/04/23 08:51 UA Bilirubin 0 mg/dL Last Edit by MAYURI Weathers on 05/04/23 08:51 UA Glucose 0 mg/dL Last Edit by MAYURI Weathers on 05/04/23 08:51 Results Reviewed Results Reviewed: Laboratory Last Values Urine pH (Auto) 6.0 05/04/23 08:49 Specific [place] (Auto) 1.020 05/04/23 08:49 Urine Protein (Auto) 15 mg/dL 05/04/23 08:49 Glucose (UA)(Auto) 0 mg/dL 05/04/23 08:49 Urine Ketones (Auto) Negative 05/04/23 08:49 Urine Blood (Auto) 0 Mynor/uL 05/04/23 08:49 Urine Nitrite (Auto) Negative 05/04/23 08:49 Urine Bilirubin (Auto) 0 mg/dL 05/04/23 08:49 Urine Urobilinogen (Auto) 1 mg/dL 05/04/23 08:49 Leukocyte Esterase (Auto) 0 Sylvester/uL 05/04/23 08:49 Assessment & Plan Assessment & Plan (1) Renal cell carcinoma: Code(s): C64.9 - Malignant neoplasm of unspecified kidney, except renal pelvis Qualifiers: Laterality: right Qualified Code(s): C64.1 - Malignant neoplasm of right kidney, except renal pelvis (2) Secondary male hypogonadism: Code(s): E29.1 - Testicular hypofunction Plan Six follow-up Orders: Orders AMB Urinalysis Automated Today Z13.9 - Encounter for screening, unspecified Patient Instructions: Imaging studies, laboratory and physical exam results were discussed and reviewed in detail. No major barriers to patient understanding were identified. An opportunity to ask questions regarding the treatment plan was provided. All questions were answered. The patient expressed understanding and agreement with the above treatment plan. The patient is aware they should contact our office by phone for worsening of their current condition or the appearance of new urologic symptoms. Compliance is encouraged with any medications and followup testing that is ordered. It is a privilege to participate in the urologic care of your patient. If you have any questions or concerns regarding treatment for the above conditions, or other urologic issues, please do not hesitate to contact me. The office telephone contact is [phone]. This note is constructed using voice recognition software. While every effort has been made to ensure accuracy caster operator errors may have been included. Yours sincerely, Dr Humberto Clark MD, JAC[facility] - Urology Providers of Expert, Compassionate Care for the Genitourinary System Coding Level of Care Code Est Pt Level 3 (37112) Diagnoses Renal cell carcinoma of right kidney C64.1 Laterality: right Secondary male hypogonadism E29.1
== END 2023-05-04 09:31 | disposition home or self-care (01) ==
PROVIDERS: PCP Nurse Practitioner Family; Visit Provider Urology
DX: C64.1 Malignant neoplasm of right kidney, except renal pelvis (principal); E29.1 Testicular hypofunction; Z13.9 Encounter for screening, unspecified
CPT/HCPCS: 99213

== ENCOUNTER → 2023-05-04 08:08 | Outpatient (BNVA) | payer OTHER, SELFPAY | PROVIDERS: Visit Provider Urology | DX: C64.1 Malignant neoplasm of right kidney, except renal pelvis (principal); E29.1 Testicular hypofunction | CPT/HCPCS: 81003; 99212 ==

== ENCOUNTER 2023-05-25 14:39 | Outpatient (REF) | payer OTHER, SELFPAY ==
[2023-05-25 15:38] LABS: Anion Gap 12 (12-20); Blood Urea Nitrogen 6 mg/dL (9-16); Calcium 7.8 mg/dL (8.4-10.2); Carbon Dioxide 22 mmol/L (22-29); Chloride 98 mmol/L (96-108); Estimated Glomerular Filt Rate > 60; Glucose Random 94 mg/dL (60-115); Potassium 3.9 mmol/L (3.3-5.1); Sodium 128 mmol/L (135-145)
== END 2023-05-25 14:40 | disposition home or self-care (01) ==
LOC: HO.HVNA 14:39
PROVIDERS: Visit Provider Internal Medicine
DX: C64.9 Malignant neoplasm of unspecified kidney, except renal pelvis (principal)
CPT/HCPCS: 36415; 80048

== ENCOUNTER 2023-05-28 10:42 | Inpatient (IN) | payer OTHER, SELFPAY ==
[2023-05-28] VITALS (9 sets, daily range): BP systolic 112–198; BP diastolic 56–91; PULSE 70–106; RESP 16–19; TEMP 36.3–37; O2SAT 95–100; BMI 18.5
--- NOTE | ~2023-05-28 | XR_ITS ---
EXAMINATION: XR CHEST CLINICAL INFORMATION: Weakness COMPARISON: Chest x-ray 04/27/2023.. TECHNIQUE: Frontal view of the chest was obtained. FINDINGS: The lungs are well-expanded and clear. The heart size and pulmonary vascularity is normal. There is a right central venous port with its tip in the mid SVC. No pneumothorax seen. Mild spondylosis noted throughout the mid to lower dorsal spine.. XR/XR chest 1V IMPRESSION: 1. No acute cardiopulmonary process seen. 2. Right central venous port is in mid SVC.
--- NOTE | 2023-05-28 11:05 | ECG_ITS ---
Test Reason : NEAR SYNCOPE Blood Pressure : / mmHG Vent. Rate : 086 BPM Atrial Rate : 086 BPM P-R Int : 120 ms QRS Dur : 084 ms QT Int : 386 ms P-R-T Axes : 057 065 060 degrees QTc Int : 461 ms Normal sinus rhythm Nonspecific ST abnormality Inferior leads Abnormal ECG When compared with ECG of 27-APR-2023 18:03, ST less elevated in Inferior leads Referred By: Meme Melgar Electronically Signed By:TAIWO VERDE MD
--- NOTE | 2023-05-28 11:33 | PC.NURSE ---
Tigered Dr. Daugherty regarding accessing his portacath gave the ok.
--- NOTE | 2023-05-28 11:45 | ED.SYNCOPE ---
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 He comes in today as he was eating breakfast felt weak and near syncope no falls no CP/SOB no GIB symptoms, no fevers. Worried his sodium is low again. MD complaint: felt faint Onset (ago): minute(s) (just prior to arrival ) Prodromal symptoms: lightheaded Witnessed: Yes - by Bystander Context: standing up Injuries sustained associated with event: none Current symptoms: back to baseline History: other (low Na) Treatments prior to arrival: none Related Data Home Medications Medication Instructions Recorded Confirmed ascorbate calcium (vitamin C) 500 500 mg PO DAILY 10/09/21 05/19/23 mg tablet ferrous sulfate 325 mg (65 mg 325 mg PO DAILY 10/09/21 05/19/23 iron) tablet midodrine 5 mg tablet 5 mg PO TIDWM@0900,1300,1800 07/08/22 05/19/23 sodium chloride 1,000 mg soluble 2,000 mg PO BID 04/27/23 05/19/23 tablet Previous Rx's Medication Instructions Recorded dexamethasone 4 mg tablet 1 tab PO BID #30 tabs 02/02/23 levothyroxine 75 mcg capsule 75 mcg PO DAILY 30 days #30 caps 03/15/23 apixaban 5 mg tablet (Eliquis) 5 mg PO BID #60 tabs 04/29/23 capecitabine 500 mg tablet (Xeloda) 1,000 mg (2 x 500 mg) PO BID #56 05/19/23 tabs olanzapine 2.5 mg tablet 2.5 mg PO BEDTIME #30 tabs 05/19/23 Allergies Allergy/AdvReac Type Severity Reaction Status Date / Time No Known Allergies Allergy Verified 05/19/23 08:50 Review of Systems Review of Systems: Constitutional : No Fever, No Chills, pos Fatigue ENT/Mouth : No sore throat, No Rhinorrhea Eyes: No Eye Pain, No Swelling, No Redness Cardiovascular : No Chest Pain, No SOB, No Dyspnea on Exertion, pos edema Respiratory : No Cough, No Sputum Gastrointestinal : No Nausea, No Vomiting, No Diarrhea, No abdominal Pain Genitourinary : No Dysuria, No Urinary Frequency, No Hematuria, Musculoskeletal : No joint pain, No Myalgias, No Joint Swelling Skin : No Skin Lesions, No rash Neuro : No Weakness, No Numbness, No Dizziness, no Headache, near syncope Psych : No Anxiety/Panic, No Depression Heme/Lymph: No Bruising, No Bleeding,No Lymphadenopathy Endocrine : No Polyuria, No Polydipsia All other systems reviewed and are negative PMFSH Past Medical History Attestation statement: The following information was validated with the patient. 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 Renal cell carcinoma Rectosigmoid cancer Pituitary lesion Fever of unknown origin Mass of pituitary Headache Colostomy in place HTN (hypertension) [place]-vesical fistula Surgical History History of removal of Port-a-Cath H/O hernia repair S/P colon resection Family History Family History Mother Parkinsons disease Father ESRD (end stage renal disease) Other No family history of cancer Social History Social History Household Members: Spouse Household Members Other:: 1 Housing: House Are you a primary veterinarian laboratory animal care to a significant other at home: No Do you presently have visiting nurse or other home services: No Alcohol intake: never Patient Tobacco Use Status: Former Tobacco user Quit Date: 30 y.o Tobacco use type: Cigarette Years Smoked: 30 years ago Smoked in Last 30 Days: No e-Cigarette/Vaping Use: Never Used Second Hand Smoke Exposure: No Use of substances other than those prescribed or required for medical reasons: No Advance Directives: No Advance Directives Information Provided: No service: Yes Current occupational status: employed and retired Cognitive needs: No Hearing needs: No Vision needs: No Physical Exam Vital Signs: Vital Signs: Last Vital Signs Temp 97.6 F 05/28/23 12:12 Pulse 106 H 05/28/23 12:12 Resp 18 05/28/23 12:12 BP 112/56 L 05/28/23 12:12 Pulse Ox 96 05/28/23 12:12 O2 Del Method Room Air 05/28/23 12:12 BMI result Body Mass Index 18.5 Appearance: Alert. Oriented X3. No acute distress. Eyes: Pupils equal, round and reactive to light. ENT: Pharynx midly dry MM Neck: Normal inspection. Neck supple. CVS: Normal heart rate and rhythm. Pulses normal. Respiratory: No respiratory distress. Breath sounds normal. Abdomen: Soft and non-tender. ostomy is p/p/p Skin: Skin warm and dry. Normal skin color. Normal skin turgor. Extremities: 1+ bilateral pitting lower extremity edema. No calf ttp Neuro: Oriented X 3. No motor deficit. No sensory deficit. 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 He denies GIB or infectious symptoms. At this time will obtain EKG, basic labs, UA, CXR, H/H. Na level given history he reports compliance with his Na tabs. Differential Diagnosis Differential Diagnoses: The differential diagnosis associated with the presentation includes anemia, dehydration, FTT, hyponatremia Admission/Observation Consideration of admission/observation: Escalation of care including admission/observation considered admit for low Na and + ortho VS Consult Healthcare Provider Management of the patient was discussed with: Hospitalist (will admit) Lab Data [facility] Lab Attestation statement: I reviewed the patient's lab results. 05/28/23 11:56 05/28/23 11:56 Labs: Lab Results 05/28/23 05/28/23 Range/Units 11:56 12:15 WBC 5.9 (4.8-10.8) X10*3/uL RBC 3.07 L (4.60-5.80) X10*6/uL Hgb 9.8 L (14.0-18.0) g/dl Hct 29.5 L (42.0-52.0) % MCV 96.1 (80.0-98.0) fL MCH 31.9 (27.0-33.0) pg MCHC 33.2 (31.0-36.0) g/dl RDW 16.4 H (11.0-16.0) % Plt Count 189 D (160-400) X10*3/uL MPV 9.9 (9.4-12.4) fL Immature Gran % (Auto) 0.3 (0.0-0.4) % Neut % (Auto) 76.3 H (45-73) % Lymph % (Auto) 10.4 L (20-40) % [place] % (Auto) 12.5 H (2-11) % Eos % (Auto) 0.3 (0-4) % Baso % (Auto) 0.2 (0-2) % Lymph # (Auto) 0.6 L (1.2-4.9) X10*3/uL [place] # (Auto) 0.7 (0.1-1.2) X10*3/uL Eos # (Auto) 0.0 (0.0-0.4) X10*3/uL Baso # (Auto) 0.0 (0.0-0.2) X10*3/uL Abs Immat Gran (auto) 0.02 (0.00-0.03) X10*3/uL Absolute Neuts (auto) 4.5 (2.0-8.3) x10*3/uL Absolute Nucleated RBC 0.000 (0.0-0.012) X10*3/uL Nucleated RBC % (auto) 0.0 (0.0-0.2) /100WBC Sodium 125 L (135-145) mmol/L Potassium 3.8 (3.3-5.1) mmol/L Chloride 95 L (96-108) mmol/L Carbon Dioxide 23 (22-29) mmol/L Anion Gap 11 L (12-20) BUN 7 L (9-16) mg/dL Creatinine 0.56 (0.5-1.4) mg/dL Estim Creat Clear Calc 110.1 Estimated GFR > 60 Random Glucose 147 H (60-115) mg/dL Lactic Acid 2.2 H* (0.5-2.0) mmol/L Calcium 8.1 L (8.4-10.2) mg/dL Magnesium 1.6 (1.6-2.6) mg/dL Total Bilirubin 0.6 (0.0-1.0) mg/dL Direct Bilirubin 0.3 (0.0-0.5) mg/dL AST 38 H (5-37) U/L ALT 15 (0-40) U/L Alkaline Phosphatase 135 H (39-117) U/L Troponin I High Sens < 2.7 (<3.5-35.0) ng/L Total Protein 4.8 L (6.5-8.0) g/dL Albumin 2.5 L (3.5-5.0) g/dL Lipase 15 (8-78) U/L Urine Color Yellow Urine Appearance Clear Urine pH 6.5 (5.0-9.0) Ur Specific [place] 1.015 (1.005-1.025) Urine Protein 30 (1+) H (Neg-Trace) mg/dL Urine Glucose (UA) Negative (Negative) mg/dL Urine Ketones Negative (Negative) mg/dL Urine Blood Negative (Negative) Urine Nitrite Negative (Negative) Ur Leukocyte Esterase Negative (Negative) Urine RBC 0-2 (0-2) /HPF Urine WBC 0-5 (0-5) /HPF Ur Squamous Epith Cells 0-2 (0-2) /HPF Urine Bacteria None Seen (None Seen) Hyaline Casts 3-5 (0-2) /LPF COVID-19 (JAS) Invalid (Negative) COVID-19 Clin Com See Note Independent Interpretation I performed an independent interpretation of an: EKG and Plain X-Ray Interpretation: Rate: 86 Rhythm: NSR [place]: normal Normal P waves. Normal PAN. Normal QRS complex. ST T wave : no NANDO, nonspecific ST changes qTC: normal prior studies: no acute ischemia The study has been interpreted contemporaneously by me. . Radiology Impression Discussion of test interpretation with radiology: I have reviewed the radiologist's reading. Independent Historian Clinical information obtained from an independent historian. History obtained from or confirmed by: Spouse and EMS External Record Review External record reviewed: Inpatient record Discharge Plan Discharge Clinical Impression: Acute hyponatremia, Orthostatic hypotension, Near syncope Patient Disposition: Admitted As Inpatient Prescriptions: No Action levothyroxine 75 mcg capsule 75 mcg PO DAILY 30 Days Qty: 30 3RF midodrine 5 mg tablet 5 mg PO TIDWM@0900,1300,1800 Hold Instructions: blood pressure stable hold for now, follow up with pcp. dexamethasone 4 mg tablet 1 tab PO BID Qty: 30 3RF Hold Instructions: hold until follow up with oncology Rx Instructions: Take 1 tablet twice a day on the 2 days after chemo. Eliquis 5 mg tablet 5 mg PO BID Qty: 60 3RF capecitabine [Xeloda] 500 mg tablet 1,000 mg PO BID Qty: 56 5RF Rx Instructions: Take 1,000 mg (2 tabs) BID for 14 days, beginning w/ each new chemo cycle, then stop for 7 days, and begin again w/ next chemo cycle. olanzapine 2.5 mg Tablet 2.5 mg PO BEDTIME Qty: 30 3RF sodium chloride 1,000 mg tablet,soluble 2,000 mg PO BID ascorbate calcium (vitamin C) 500 mg tablet 500 mg PO DAILY ferrous sulfate 325 mg (65 mg iron) tablet 325 mg PO DAILY
[2023-05-28 12:06] LABS: MANUAL DIFF FLAG NO
[2023-05-28 12:13] LABS: Basophils Percent Auto 0.2 % (0-2); Eosinophils Percent Auto 0.3 % (0-4); Hematocrit 29.5 % (42.0-52.0); Hemoglobin 9.8 g/dl (14.0-18.0); Imm Gran Abs Auto 0.02 X10*3/uL (0.00-0.03); Imm Gran Pct Auto 0.3 % (0.0-0.4); Lymphocytes Absolute Auto 0.6 X10*3/uL (1.2-4.9); Lymphocytes Percent Auto 10.4 % (20-40); Mean Corpuscular HGB Conc 33.2 g/dl (31.0-36.0); Mean Corpuscular Hemoglobin 31.9 pg (27.0-33.0); Mean Corpuscular Volume 96.1 fL (80.0-98.0); Mean Platelet Volume 9.9 fL (9.4-12.4); Monocytes Absolute Auto 0.7 X10*3/uL (0.1-1.2); Monocytes Percent Auto 12.5 % (2-11); Neutrophils Absolute Auto 4.5 x10*3/uL (2.0-8.3); Neutrophils Percent Auto 76.3 % (45-73); Platelet Count 189 X10*3/uL (160-400); Red Blood Count 3.07 X10*6/uL (4.60-5.80); Red Cell Distribution Width 16.4 % (11.0-16.0); White Blood Count 5.9 X10*3/uL (4.8-10.8)
[2023-05-28 12:23] LABS: Lactic Acid 2.2 mmol/L (0.5-2.0)
[2023-05-28 12:24] LABS: Appearance Urine Clear; Color Urine Yellow; Glucose Urine UA Negative (Negative); Leukocyte Esterase Urine Negative (Negative); Nitrite Urine Negative (Negative); PH 6.5 (5.0-9.0); Specific Gravity - Urine 1.015 (1.005-1.025); UMIC TRIGGER UACC YES; Urine Blood Negative (Negative); Urine Ketones Negative (Negative); Urine Protein 30 (1+) mg/dL (Neg-Trace)
[2023-05-28 12:24] LABS: Alanine Aminotransferase 15 U/L (0-40); Albumin Level 2.5 g/dL (3.5-5.0); Alkaline Phosphatase 135 U/L (39-117); Anion Gap 11 (12-20); Aspartate Amino Transferase 38 U/L (5-37); Bilirubin Direct 0.3 mg/dL (0.0-0.5); Bilirubin Total 0.6 mg/dL (0.0-1.0); Blood Urea Nitrogen 7 mg/dL (9-16); Calcium 8.1 mg/dL (8.4-10.2); Carbon Dioxide 23 mmol/L (22-29); Chloride 95 mmol/L (96-108); Creatinine Clr Calc Pharmacy 110.1; Estimated Glomerular Filt Rate > 60; Glucose Random 147 mg/dL (60-115); Lipase 15 U/L (8-78); Magnesium 1.6 mg/dL (1.6-2.6); Potassium 3.8 mmol/L (3.3-5.1); Sodium 125 mmol/L (135-145); Total Protein 4.8 g/dL (6.5-8.0)
[2023-05-28 12:27] LABS: Bacteria Urine None Seen (None Seen); RBC Urine 0-2 /HPF (0-2); Squamous Epithelial Cell Urine 0-2 /HPF (0-2); WBC Urine 0-5 /HPF (0-5)
[2023-05-28 12:31] LABS: Troponin-I High Sensitivity < 2.7 ng/L (<3.5-35.0)
[2023-05-28 12:53] LABS: COVID-19 Test Invalid (Negative); IDNOW Serial# BCCEAD1C
--- NOTE | 2023-05-28 13:11 | PC.NURSE ---
3+ PITTING EDEMA TO [facility] LOWER EXT.
[2023-05-28] MEDS: 0.9 % Sodium Chloride 500 ML IV (13:55)
[2023-05-28 14:05] LABS: Reflex Lactate? Lactic Acid Added
--- NOTE | 2023-05-28 14:07 | PHA.MEDREC ---
Pharmacy Consult ? Medication Reconciliation Pharmacy has completed the medication reconciliation. Patient's at bedside with list. Patient also gets Xeloda with dexamethasone for his chemo cycles. No medications reported taken today
--- NOTE | 2023-05-28 14:10 | PC.NURSE ---
COLOSTOMY BAG CHANGE MOD AMT OF SOFT BROWN STOOL NOTED.
--- NOTE | 2023-05-28 14:44 | P.HPHOSP_ITS ---
History of Present Illness Date of Service: 05/28/23 Attending physician on admission: Royer Blue Chief Complaint: dizziness ?A 72-year-old male with PMH of Renal Cell Ca and metastatic rectosigmoid adenocarcinoma Colon with pulmonary and brain (pituitary) mets, h/o PE on eliquis, Hypothyroidism, HTN, chronic hyponatremia on salt tabs who presents to the ED with weakness. He went to multiple doctors appointments and afterward with eating lunch, he stood up and suddenly began feeling dizzy. He denied any chest pain, shortness of breath, nausea. He sat down and began feeling better. He denies any vomiting or diarrhea. He was recently evaluated by Dr. Cisneros his oncologist to has withheld chemotherapy moving forward as he has been doing poorly and has persistent hyponatremia with treatment. He was also seen outpatient by Nephrology and no adjustments seem to have been made at that visit. He continues with sodium chloride tablets at home as well as a fluid restriction. He had recent hospitalization early in April for hyponatremia. Sodium today was 125. 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 Renal cell carcinoma Rectosigmoid cancer Pituitary lesion Fever of unknown origin Mass of pituitary Headache Colostomy in place HTN (hypertension) [place]-vesical fistula Family History Mother Parkinsons disease Father ESRD (end stage renal disease) Other No family history of cancer Surgical History History of removal of Port-a-Cath H/O hernia repair S/P colon resection Social History Household Members: Spouse Household Members Other:: 1 Housing: House Are you a primary healthcare or medical to a significant other at home: No Do you presently have visiting nurse or other home services: No Alcohol intake: never Patient Tobacco Use Status: Former Tobacco user Quit Date: 30 y.o Tobacco use type: Cigarette Years Smoked: 30 years ago Smoked in Last 30 Days: No e-Cigarette/Vaping Use: Never Used Second Hand Smoke Exposure: No Use of substances other than those prescribed or required for medical reasons: No Advance Directives: No Advance Directives Information Provided: No Nutrition Risks: No Nutritional Risk service: Yes Current occupational status: employed and retired Cognitive needs: No Hearing needs: No Vision needs: No Meds Allergies Allergy/AdvReac Type Severity Reaction Status Date / Time No Known Allergies Allergy Verified 05/19/23 08:50 Active Medications: Current Medications Acetaminophen (Acetaminophen 325 Mg Tablet) 650 mg PO Q6H PRN PRN Reason: Pain, Mild (Pain Scale 1-3) Docusate Sodium (Docusate Sodium 100 Mg Capsule) 100 mg PO DAILY PRN PRN Reason: Constipation Ondansetron HCl (Ondansetron Hcl 4 Mg/2 Ml Vial) 4 mg IVPUSH Q8H PRN PRN Reason: Nausea and Vomiting Sodium Chloride (0.9 % Sodium Chloride Flush 3 Ml Syringe) 3 ml IVFLUSH [facility] Medications Medication Instructions Recorded Confirmed Last Taken Type ascorbate calcium (vitamin C) 500 500 mg PO DAILY 10/09/21 05/28/23 05/27/23 History mg tablet ferrous sulfate 325 mg (65 mg 325 mg PO DAILY 10/09/21 05/28/23 05/27/23 History iron) tablet midodrine 5 mg tablet 5 mg PO TIDWM@0900,1300,1800 07/08/22 05/28/23 05/27/23 History sodium chloride 1,000 mg soluble 2,000 mg PO BID 04/27/23 05/28/23 05/27/23 History tablet Physical Exam 2 Vital Signs and Narrative: Vital Signs: Last Vital Signs Temp 98.6 F 05/28/23 13:16 Pulse 77 05/28/23 13:16 Resp 19 05/28/23 13:16 BP 147/75 H 05/28/23 13:16 Pulse Ox 100 05/28/23 13:16 O2 Del Method Room Air 05/28/23 13:16 BMI result Body Mass Index 18.5 Const: Other: Thin, frail elderly male resting in bed comfortably General: comfortable, no acute distress, alert and awake Nutritional Appearance: thin Orientation/consciousness: patient oriented x3 Resp: Effort & Inspection: normal respiratory effort, able to speak in complete sentences, no respiratory distress and no use of accessory muscles Cardio: Rate: regular rate GI: Inspection: No distended Palpation (GI): Soft to palpation and nontender Neuro: General: patient oriented x3 and CN's II-XI intact bilaterally Extrem: Other: 1-2+ edema b/l lower extremities Results Labs 05/28/23 11:56 05/28/23 11:56 Labs: Laboratory Results - last 24 hr 05/28/23 05/28/23 11:56 12:15 MCV 96.1 MCH 31.9 MCHC 33.2 RDW 16.4 H Plt Count 189 D MPV 9.9 Immature Gran % (Auto) 0.3 Neut % (Auto) 76.3 H Lymph % (Auto) 10.4 L [place] % (Auto) 12.5 H Eos % (Auto) 0.3 Baso % (Auto) 0.2 Lymph # (Auto) 0.6 L [place] # (Auto) 0.7 Eos # (Auto) 0.0 Baso # (Auto) 0.0 Abs Immat Gran (auto) 0.02 Absolute Neuts (auto) 4.5 Absolute Nucleated RBC 0.000 Nucleated RBC % (auto) 0.0 Anion Gap 11 L Estim Creat Clear Calc 110.1 Estimated GFR > 60 Random Glucose 147 H Lactic Acid 2.2 H* Calcium 8.1 L Magnesium 1.6 Total Bilirubin 0.6 Direct Bilirubin 0.3 AST 38 H ALT 15 Alkaline Phosphatase 135 H Total Protein 4.8 L Albumin 2.5 L Lipase 15 Urine Color Yellow Urine Appearance Clear Urine pH 6.5 Ur Specific [place] 1.015 Urine Protein 30 (1+) H Urine Glucose (UA) Negative Urine Ketones Negative Urine Blood Negative Urine Nitrite Negative Ur Leukocyte Esterase Negative Urine RBC 0-2 Urine WBC 0-5 Ur Squamous Epith Cells 0-2 Urine Bacteria None Seen Hyaline Casts 3-5 COVID-19 (JAS) Invalid COVID-19 Clin Com See Note Imaging Radiologist's Impressions: Impressions Chest X-Ray 05/28/23 12:04 IMPRESSION: 1. No acute cardiopulmonary process seen. 2. Right central venous port is in mid SVC. 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 blue will likely require two midnight stay in the hospital for management of hyponatremia Quality Stroke Does the patient have a stroke diagnosis?: No VTE Prior VTE?: No VTE Risk Level:: Medical - moderate - high VTE Device Contraindication: Treatment Not Indicated VTE Drug Contraindication: N/A - Med Ordered
--- NOTE | 2023-05-28 14:56 | P.CONNP_ITS ---
History of Present Illness Reason for Consult Consult date: 05/29/23 Reason for consult: Hyponatremia Chief Complaint Chief complaint: near syncope hypoonatremia History of Present Illness Narrative: 72-year-old man, well known to me, with Renal Cell Ca and metastatic rectosigmoid adenocarcinoma Colon with pulmonary and brain (pituitary) mets, h/o PE on eliquis, Hypothyroidism, HTN, chronic hyponatremia on salt tabs who presents to the ED with weakness. He went to multiple doctors appointments and afterward with eating lunch, he stood up and suddenly began feeling dizzy. He denied any chest pain, shortness of breath, nausea. He sat down and began feeling better. He denies any vomiting or diarrhea. He was recently evaluated by Dr. Cisneros his oncologist to has withheld chemotherapy moving forward as he has been doing poorly and has persistent hyponatremia with treatment. Consult requested for hyponatremia Review of Systems Constitutional: Denies anorexia, Denies fever(s) and Denies weakness Eyes: Denies blurry vision Cardiovascular: Denies no additional cardiovascular complaints and Denies dyspnea Respiratory: Reports no additional respiratory complaints, Reports cough and Denies dyspnea Gastrointestinal: Denies melena and Denies diarrhea Genitourinary: Denies hematuria Musculoskeletal: Denies tingling Skin/Breast: Denies rash Denies focal weakness, Denies tingling, Denies tremor(s) and Denies weakness PMFSH Past Medical History Medical History Chronic orthostatic hypotension Hypothyroidism Chronic hyponatremia 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 Renal cell carcinoma Rectosigmoid cancer Pituitary lesion Fever of unknown origin Mass of pituitary Headache Colostomy in place HTN (hypertension) [place]-vesical fistula Family History Family History Mother Parkinsons disease Father ESRD (end stage renal disease) Other No family history of cancer Surgical History Surgical History History of removal of Port-a-Cath H/O hernia repair S/P colon resection Social History Social History Household Members: Spouse Household Members Other:: 1 Housing: House Are you a primary acute care certified nursing assistant to a significant other at home: No Do you presently have visiting nurse or other home services: Yes (twice a week) Alcohol intake: never Patient Tobacco Use Status: Former Tobacco user Quit Date: 30 y.o Tobacco use type: Cigarette Years Smoked: 30 years ago e-Cigarette/Vaping Use: Never Used Second Hand Smoke Exposure: No service: Yes Current occupational status: employed and retired Cognitive needs: No Hearing needs: No Vision needs: No Meds Allergies Allergy/AdvReac Type Severity Reaction Status Date / Time No Known Allergies Allergy Verified 05/19/23 08:50 Active Medications: Current Medications Acetaminophen (Acetaminophen 325 Mg Tablet) 650 mg PO Q6H PRN PRN Reason: Pain, Mild (Pain Scale 1-3) Apixaban (Apixaban 5 Mg Tablet) 5 mg PO BID DMITRY Ascorbic Acid (Ascorbic Acid 500 Mg Tablet) 500 mg PO DAILY [facility] Docusate Sodium (Docusate Sodium 100 Mg Capsule) 100 mg PO DAILY PRN PRN Reason: Constipation Ferrous Sulfate (Ferrous Sulfate 324 Mg Tablet.Dr) 324 mg PO DAILY [facility] Levothyroxine Sodium (Levothyroxine Sodium 75 Mcg Tablet) 75 mcg PO DAILY@0600 DMITRY Midodrine (Midodrine Hcl 5 Mg Tablet) 5 mg PO TIDWM@0900,1300,1800 [facility] Olanzapine (Olanzapine 2.5 Mg Tablet) 2.5 mg PO BEDTIME DMITRY Ondansetron HCl (Ondansetron Hcl 4 Mg/2 Ml Vial) 4 mg IVPUSH Q8H PRN PRN Reason: Nausea and Vomiting Sodium Chloride (0.9 % Sodium Chloride Flush 3 Ml Syringe) 3 ml IVFLUSH QSHIFT [facility] Sodium Chloride (Sodium Chloride Tab 1 Gm Tablet) 2 gm PO BID [facility] Home Medications Medication Instructions Recorded Confirmed Last Taken Type ascorbate calcium (vitamin C) 500 500 mg PO DAILY 10/09/21 05/28/23 05/27/23 History mg tablet ferrous sulfate 325 mg (65 mg 325 mg PO DAILY 10/09/21 05/28/23 05/27/23 History iron) tablet midodrine 5 mg tablet 5 mg PO TIDWM@0900,1300,1800 07/08/22 05/28/23 05/27/23 History sodium chloride 1,000 mg soluble 2,000 mg PO BID 04/27/23 05/28/23 05/27/23 History tablet Physical Exam Vital Signs: Last Vital Signs Temp 98.6 F 05/28/23 13:16 Pulse 77 05/28/23 13:16 Resp 19 05/28/23 13:16 BP 147/75 H 05/28/23 13:16 Pulse Ox 100 05/28/23 13:16 O2 Del Method Room Air 05/28/23 13:16 BMI result Body Mass Index 18.5 Const General: comfortable Nutritional Appearance: cachectic Orientation/consciousness: patient oriented x3 HEENT Head: No normal to inspection Mouth: moist mucous membranes Neck Neck: Yes supple and Yes no JVD Resp Auscultation: clear to auscultation bilaterally, no rales and rub present Cardio Jugular venous distension: no JVD Palpation: no palpable S3 and no palpable S4 Heart sounds: no rubs GI Palpation (GI): Soft to palpation and nontender Percussion: No Fluid wave present General: Yes no CVA tenderness Back/Spine/Pelvis Back: no CVA tenderness Skin General skin exam: no rashes or lesions noted Neuro General: patient oriented x3 Extrem General: Yes no pedal edema and No clubbing Results Lab Results 05/28/23 11:56 05/29/23 06:09 Lab results: Chemistry 05/28/23 11:56 Sodium 125 L Potassium 3.8 Carbon Dioxide 23 BUN 7 L Creatinine 0.56 Calcium 8.1 L Hematology 05/28/23 11:56 WBC 5.9 Hgb 9.8 L Plt Count 189 D Urinalysis 05/28/23 12:15 Urine Color Yellow Urine Appearance Clear Urine pH 6.5 Ur Specific [place] 1.015 Urine Protein 30 (1+) H Urine Glucose (UA) Negative Urine Ketones Negative Urine Blood Negative Urine Nitrite Negative Ur Leukocyte Esterase Negative Urine RBC 0-2 Urine WBC 0-5 Ur Squamous Epith Cells 0-2 Hyaline Casts 3-5 Assessment and Plan (1) Hyponatremia: Status: Acute Plan Chronic Hyponatremia Urine Osm is in appropriately elevated and [place]ika is 93 TSH is suppressed Most likely has Non Osmotic ADH release leading to decreased free water clearance. Suggest Check Cortisol Keep PO WATER restriction of 1L per 24 hrs Keep NaCl tabs to increase osmotic load Add Urea powder 15 gm PO BID to increase osmotic load Goal pNa > 130 mmol/L No need for 3%NaCl solution Discussed with pt and his Procedures Date of Service Date of Service: 05/29/23
--- NOTE | 2023-05-28 15:13 | MHC.EDTECH ---
[facility] [place] PRINTERS DOWN AT THIS TIME. BELONGINGS LIST COMPLETED BY PCT HUONG Villanueva 7A-3P SHIFT. T/W UNABLE TO PRINT OUT BELONGINGS LIST AT THIS TIME FOR PT TO SIGN. RN AWARE.
--- NOTE | 2023-05-28 15:30 | PC.NURSE ---
this rn assumed care of pt. pt requesting repeat lactic be drawn off of port, this rn carlos eduardo lab off port, phlebotomy at bedside to send down to lab, fluids d/c and sterile green curos cap placed on port. pt denies pain at this time. respirations even and unlabored, lung sounds clear bilaterally. pt normal sinus on tele [id number].
[2023-05-28 15:38] LABS: ~Lactic Acid-LAB USE ONLY 1.1 mmol/L (0.5-2.0)
--- NOTE | 2023-05-28 16:38 | PC.NURSE ---
pt reports he uses a walker at home as needed, he reports after chemo he typically feels increased weakness with the need to use the walker. pt has ostomy in place and reports he prefers using urinal for voiding.
[2023-05-28 16:46] LABS: TSH reflex Free T4 0.16 uIU/mL (0.32-4.0)
[2023-05-28 17:13] LABS: Anion Gap 10 (12-20); Blood Urea Nitrogen 6 mg/dL (9-16); Carbon Dioxide 24 mmol/L (22-29); Chloride 97 mmol/L (96-108); Creatinine Clr Calc Pharmacy 108.1; Estimated Glomerular Filt Rate > 60; Glucose Random 83 mg/dL (60-115); Sodium 127 mmol/L (135-145)
[2023-05-28 17:26] LABS: Free T4 (Free Thyroxine) 1.01 ng/dL (0.71-1.85)
[2023-05-28 17:37] LABS: Osmolality Urine 479 mosm/kg (373-1093)
--- NOTE | 2023-05-28 17:41 | PC.NURSE ---
attempted to give report to [facility], nurse currently busy, will call back when available.
[2023-05-28] MEDS: Midodrine HCl 5 MG TABLET PO (18:05)
--- NOTE | 2023-05-28 18:20 | PC.NURSE ---
[place] [facility] [place] Q[place].
[2023-05-28] MEDS: Sodium Chloride Tab 1 GM TABLET 2 GM PO (20:13)
[2023-05-28] MEDS: Apixaban 5 MG TABLET PO (20:13)
[2023-05-28] MEDS: Urea 15 GM POWDER PO (20:13)
[2023-05-28] MEDS: 0.9 % Sodium Chloride Flush 3 ML SYRINGE IVFLUSH (20:13)
[2023-05-28] MEDS: OLANZapine 2.5 MG TABLET PO (20:16)
[2023-05-28 20:24] LABS: Osmolality, Serum 262 mosm/kg (281-305)
[2023-05-29 00:12] LABS: Anion Gap 10 (12-20); Blood Urea Nitrogen 15 mg/dL (9-16); Calcium 8.4 mg/dL (8.4-10.2); Carbon Dioxide 24 mmol/L (22-29); Chloride 102 mmol/L (96-108); Creatinine Clr Calc Pharmacy 112.1; Estimated Glomerular Filt Rate > 60; Glucose Random 97 mg/dL (60-115); Potassium 3.7 mmol/L (3.3-5.1); Sodium 132 mmol/L (135-145)
[2023-05-29 03:19] VITALS: BP 150/81; PULSE 108; RESP 18; TEMP 36.7; O2SAT 98
[2023-05-29] MEDS: Levothyroxine Sodium 75 MCG TABLET PO (05:35)
[2023-05-29 06:57] LABS: Anion Gap 10 (12-20); Blood Urea Nitrogen 13 mg/dL (9-16); Calcium 8.5 mg/dL (8.4-10.2); Carbon Dioxide 25 mmol/L (22-29); Chloride 102 mmol/L (96-108); Creatinine Clr Calc Pharmacy 116.3; Estimated Glomerular Filt Rate > 60; Glucose Random 75 mg/dL (60-115); Potassium 3.8 mmol/L (3.3-5.1); Sodium 133 mmol/L (135-145)
[2023-05-29 07:20] LABS: Cortisol Random 9.6 ug/dL
[2023-05-29 07:29] VITALS: BP 152/76; PULSE 92; RESP 20; TEMP 36.8; O2SAT 99
[2023-05-29] MEDS: Apixaban 5 MG TABLET PO (08:13)
[2023-05-29] MEDS: 0.9 % Sodium Chloride Flush 3 ML SYRINGE IVFLUSH (08:13)
[2023-05-29] MEDS: Midodrine HCl 5 MG TABLET PO ×2 (08:13→12:38)
[2023-05-29] MEDS: Sodium Chloride Tab 1 GM TABLET 2 GM PO (08:13)
[2023-05-29] MEDS: Ascorbic Acid 500 MG TABLET PO (08:13)
[2023-05-29] MEDS: Ferrous Sulfate 324 MG TABLET.DR PO (08:13)
[2023-05-29 11:15] VITALS: BP 130/65; PULSE 80; RESP 18; TEMP 37.4; O2SAT 99
--- NOTE | 2023-05-29 13:57 | PM.DS ---
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 He went to multiple doctors appointments and afterward with eating lunch, he stood up and suddenly began feeling dizzy. He denied any chest pain, shortness of breath, nausea. He sat down and began feeling better. He denies any vomiting or diarrhea. He was recently evaluated by Dr. Cisneros his oncologist to has withheld chemotherapy moving forward as he has been doing poorly and has persistent hyponatremia with treatment. He was also seen outpatient by Nephrology and no adjustments seem to have been made at that visit. He continues with sodium chloride tablets at home as well as a fluid restriction. He had recent hospitalization early in April for hyponatremia. Sodium today was 125. Acute on chronic Hyponatremia. 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 History of SIADH. Patient was continued on baseline fluid restriction, received one dose of urea and sodium improved to 133. He was seen by nephrology who recommended to avoid pedialyte which he has been drinking at home, recommended to switch to gatorade if necessary. He was continued on baseline dose of sodium chloride. He has had no dizziness since admission and is able to ambulate without difficulty. He was continued on midodrine for baseline orthostatic hypotension. He has scheduled outpatient labs next week as well as appointment scheduled with Nephrology as outpatient for follow-up. Time Attestation Discharge coordination time: Greater than 30 minutes Quality: Safe Use of Opioids Does Pt have an Active Cancer Diagnosis on the Problem List?: Yes Opioid Measure Date for [facility] Report: 04/29/23 Opioid Measure Time for [facility] Report: 14:01 Quality: Stroke Does the patient have a stroke diagnosis?: No Physical Exam Vital Signs: Vital Signs: Last Vital Signs Temp 99.3 F 05/29/23 11:15 Pulse 80 05/29/23 11:15 Resp 18 05/29/23 11:15 BP 130/65 05/29/23 11:15 Pulse Ox 99 05/29/23 11:15 O2 Del Method Room Air 05/29/23 11:15 BMI result Body Mass Index 18.5 Const: Other: Thin, frail elderly male resting in bed comfortably General: comfortable, no acute distress, alert and awake Nutritional Appearance: thin Orientation/consciousness: patient oriented x3 Resp: Effort & Inspection: normal respiratory effort, able to speak in complete sentences, no respiratory distress and no use of accessory muscles Cardio: Rate: regular rate GI: Other: colostomy with brown stool in appliance Inspection: No distended Palpation (GI): Soft to palpation and nontender Neuro: General: patient oriented x3 and CN's II-XI intact bilaterally Extrem: Other: 1-2+ edema b/l lower extremities DS: Data Data Completed and Pending Completed studies during hospitalization [Text1]: Procedures Bypass Sigmoid Colon to Cutaneous, Open Approach (09/02/21) Drainage of Right Kidney, Percutaneous Approach, Diagnostic (09/02/21) Excision of Bladder, Open Approach (09/02/21) Excision of Rectum, Open Approach (09/02/21) Excision of Right Kidney, Percutaneous Approach, Diagnostic (09/02/21) Excision of Sigmoid Colon, Open Approach (09/02/21) Excision of Sigmoid Colon, Via Natural or Artificial Opening Endoscopic, Diagnostic (09/02/21) Release Peritoneum, Open Approach (12/30/21) Removal of Drainage Device from Peritoneal Cavity, Open Approach (12/30/21) Removal of Infusion Device from Great Vessel, Open Approach (07/10/22) Removal of Tunneled Vascular Access Device from Trunk Subcutaneous Tissue and Fascia, Open Approach (07/10/22) Repair Bladder, Open Approach (09/02/21) Labs on day of discharge: Laboratory Results - last 24 hr 05/28/23 05/28/23 05/28/23 11:56 15:19 16:31 Hold Purple Top Sodium Potassium Chloride Carbon Dioxide Anion Gap BUN Creatinine Estim Creat Clear Calc Estimated GFR Random Glucose Osmolality Lactic Acid F/U @ 2Hr 1.1 Calcium TSH 0.16 L Free T4 1.01 Random Cortisol Urine Osmolality 479 Ur Random Sodium 93.0 05/28/23 05/28/23 05/28/23 16:43 19:20 23:41 Hold Purple Top SEE NOTE Sodium 127 L 132 L Potassium 4.0 3.7 Chloride 97 102 Carbon Dioxide 24 24 Anion Gap 10 L 10 L BUN 6 L 15 Creatinine 0.57 0.55 Estim Creat Clear Calc 108.1 112.1 Estimated GFR > 60 > 60 Random Glucose 83 97 Osmolality 262 L Lactic Acid F/U @ 2Hr Calcium 8.0 L 8.4 TSH Free T4 Random Cortisol Urine Osmolality Ur Random Sodium 05/29/23 06:09 Hold Purple Top SEE NOTE Sodium 133 L Potassium 3.8 Chloride 102 Carbon Dioxide 25 Anion Gap 10 L BUN 13 Creatinine 0.53 Estim Creat Clear Calc 116.3 Estimated GFR > 60 Random Glucose 75 Osmolality Lactic Acid F/U @ 2Hr Calcium 8.5 TSH Free T4 Random Cortisol 9.6 Urine Osmolality Ur Random Sodium Discharge Plan Discharge Anticipated Discharge Date/Time: 05/29/23 14:06 Patient Disposition: Home Health Service Discharge Diagnosis: acute on chronic hyponatremia chronic orthostatic hypotension Referrals: Kurt DOMINGUEZ [Outside] - 1 Day (RESUMPTION OF CARE) Ankush Low MD [Physician] - 2 Weeks Physician,Unknown J [Primary Care Provider] - 1 Week Discharge Medications: Continued levothyroxine 75 mcg capsule 75 mcg PO DAILY 30 Days Qty: 30 3RF midodrine 5 mg tablet 5 mg PO TIDWM@0900,1300,1800 Hold Instructions: blood pressure stable hold for now, follow up with pcp. Eliquis 5 mg tablet 5 mg PO BID Qty: 60 3RF olanzapine 2.5 mg Tablet 2.5 mg PO BEDTIME Qty: 30 3RF sodium chloride 1,000 mg tablet,soluble 2,000 mg PO BID ascorbate calcium (vitamin C) 500 mg tablet 500 mg PO DAILY ferrous sulfate 325 mg (65 mg iron) tablet 325 mg PO DAILY Discharge Orders: Discharge Order (Routine); Ordered 05/29/23 Ordered By: Hyacinth Travis Activity on Discharge: As tolerated Stand Alone Forms: Patient Portal Discharge page Care Plan Goals: see below Health Concerns: acute on chronic hyponatremia chronic orthostatic hypotension Plan of Treatment: continue fluid restriction and taking sodium chloride tablets avoid pedialyte if able repeat labs next week as scheduled outpatient follow up with nephrology as scheduled Assessment: see discharge summary
[2023-05-29 14:08] LABS: Magnesium 1.8 mg/dL (1.6-2.6)
[2023-05-29 15:41] VITALS: BP 142/75; PULSE 84; RESP 18; TEMP 36.4; O2SAT 99
--- NOTE | 2023-05-29 16:04 | MHC.CM.PN ---
EMR REVIEWED, CM MET W/PT AND PT'S EDUAR DOMINGUEZ WHO IS AT BEDSIDE, RN REVIEWING PT'S DC PAPERWORK W/EDUAR DOMINGUEZ AND CM LEFT AND RETURNED PER EDUAR DOMINGUEZ PT STILL AT HOME W/FAMILY SUPPORT AND [facility] FOR SN, PT HAS A CANE/WALKER/BP MONIOTR AND PULSE OXIMETER FOR DME AT HOME. PT'S PCP VERIFIED SALLIE PRATER W/[facility], HCP AND POA ON FILE CORRECT. DCP: HOME TODAY W/RESUMP OF FAMILY SUPPORT AND [facility] AND FAMILY FOR TRANSPORT
== END 2023-05-29 16:27 | disposition home health service (06) | DRG 312 ==
LOC: HO.ED 13:03 → HO.EDOVER 14:47 → HO.IMC 17:35
PROVIDERS: Admitting Provider Physician Assistant Medical; Emergency Provider Emergency Medicine; PCP Pediatrics Pediatric Nephrology; Visit Provider Physician Assistant Medical
DX: I95.1 Orthostatic hypotension (principal); E22.2 Syndrome of inappropriate secretion of antidiuretic hormone; E44.1 Mild protein-calorie malnutrition; Z68.1 Body mass index [BMI] 19.9 or less, adult; C64.9 Malignant neoplasm of unspecified kidney, except renal pelvis; C78.00 Secondary malignant neoplasm of unspecified lung; C79.89 Secondary malignant neoplasm of other specified sites; C19 Malignant neoplasm of rectosigmoid junction; Z20.822 Contact with and (suspected) exposure to COVID-19; Z86.711 Personal history of pulmonary embolism; Z87.891 Personal history of nicotine dependence; Z79.01 Long term (current) use of anticoagulants; Z79.890 Hormone replacement therapy; Z79.899 Other long term (current) drug therapy
CPT/HCPCS: 36415; 71045; 80048; 80076; 81001; 82533; 83605; 83690; 83735; 83930; 83935; 84300; 84439; 84443; 84484; 85025; 87635; 93005; 99285; J1642

== ENCOUNTER → 2023-05-28 14:32 | Outpatient (BNV) | payer OTHER, SELFPAY | PROVIDERS: Admitting Provider Physician Assistant Medical; Emergency Provider Emergency Medicine; Visit Provider Internal Medicine Hypertension Specialist | DX: E87.1 Hypo-osmolality and hyponatremia (principal) | CPT/HCPCS: 99222 ==

== ENCOUNTER → 2023-05-28 14:32 | Outpatient (BNV) | payer OTHER, SELFPAY | PROVIDERS: Admitting Provider Physician Assistant Medical; Emergency Provider Emergency Medicine; Visit Provider Physician Assistant Medical | DX: E87.1 Hypo-osmolality and hyponatremia (principal) | CPT/HCPCS: 99223; 99239 ==

== ENCOUNTER → 2023-06-03 14:39 | Outpatient (BNVA) | payer OTHER, SELFPAY | PROVIDERS: Referring Provider Internal Medicine; Visit Provider Internal Medicine Hypertension Specialist ==

== ENCOUNTER → 2023-06-03 14:39 | Outpatient (BNVA) | payer OTHER, MEDICARE, SELFPAY | PROVIDERS: PCP Internal Medicine; Referring Provider Internal Medicine; Visit Provider Internal Medicine Hypertension Specialist ==

== ENCOUNTER 2023-06-07 11:20 | Outpatient (REF) | payer OTHER, MEDICARE, SELFPAY ==
[2023-06-07 16:35] LABS: Anion Gap 11 (12-20); Blood Urea Nitrogen 7 mg/dL (9-16); Calcium 7.8 mg/dL (8.4-10.2); Carbon Dioxide 25 mmol/L (22-29); Chloride 100 mmol/L (96-108); Estimated Glomerular Filt Rate > 60; Glucose Random 93 mg/dL (60-115); Sodium 132 mmol/L (135-145)
== END 2023-06-07 11:21 | disposition home or self-care (01) ==
LOC: HO.HMGCLNP 11:20
PROVIDERS: PCP Pediatrics Pediatric Nephrology; Visit Provider Internal Medicine
DX: E87.1 Hypo-osmolality and hyponatremia (principal)
CPT/HCPCS: 80048

== ENCOUNTER 2023-06-16 11:30 | Outpatient (REF) | payer OTHER, MEDICARE, SELFPAY ==
[2023-06-16 16:14] LABS: Anion Gap 11 (12-20); Blood Urea Nitrogen 6 mg/dL (9-16); Calcium 8.2 mg/dL (8.4-10.2); Carbon Dioxide 25 mmol/L (22-29); Chloride 95 mmol/L (96-108); Estimated Glomerular Filt Rate > 60; Glucose Random 86 mg/dL (60-115); Potassium 4.5 mmol/L (3.3-5.1); Sodium 126 mmol/L (135-145)
== END 2023-06-16 11:31 | disposition home or self-care (01) ==
LOC: HO.HMGCLNP 11:30
PROVIDERS: Visit Provider Internal Medicine
DX: E87.1 Hypo-osmolality and hyponatremia (principal)
CPT/HCPCS: 80048

== ENCOUNTER 2023-06-17 13:09 | Inpatient (IN) | payer OTHER, MEDICARE, SELFPAY ==
[2023-06-17] VITALS (7 sets, daily range): BP systolic 106–168; BP diastolic 60–72; PULSE 69–90; RESP 13–19; TEMP 36.2–36.7; O2SAT 97–100; BMI 19.2
--- NOTE | 2023-06-17 13:23 | ECG_ITS ---
Test Reason : ELECTROLYTE ABNORNMALITY Blood Pressure : / mmHG Vent. Rate : 076 BPM Atrial Rate : 076 BPM P-R Int : 152 ms QRS Dur : 088 ms QT Int : 432 ms P-R-T Axes : 079 073 072 degrees QTc Int : 486 ms Normal sinus rhythm RSR' or QR pattern in V1 suggests right ventricular conduction delay Abnormal ECG When compared with ECG of 28-MAY-2023 11:28, No significant change was found Referred By: Philly Deng Electronically Signed By:TAIWO VERDE MD
--- NOTE | 2023-06-17 13:40 | ED_ITS ---
HPI - Weakness General Chief complaint: Weakness Stated complaint: WEAKNESS Time Seen by Provider: 06/17/23 13:13 Source: patient Mode of arrival: EMS Limitations: no limitations History of Present Illness HPI Narrative: Patient comes to the emergency room complaining of generalized weakness. Patient states that he is not to have SIADH, patient states that when his sodium drops below 125, he starts feeling very weak as he does today. Patient denies any chest pain or shortness of breath. Patient had 1 episode of vomiting today, no diarrhea. Other than the weakness, patient states he is doing well. Patient denies fever or chills. Related Data Home Medications Medication Instructions Recorded Confirmed ascorbate calcium (vitamin C) 500 500 mg PO DAILY 10/09/21 06/14/23 mg tablet ferrous sulfate 325 mg (65 mg 325 mg PO DAILY 10/09/21 06/14/23 iron) tablet midodrine 5 mg tablet 5 mg PO TIDWM@0900,1300,1800 07/08/22 06/14/23 sodium chloride 1,000 mg soluble 2,000 mg PO BID 04/27/23 06/14/23 tablet Previous Rx's Medication Instructions Recorded levothyroxine 75 mcg capsule 75 mcg PO DAILY 30 days #30 caps 03/15/23 apixaban 5 mg tablet (Eliquis) 5 mg PO BID #60 tabs 04/29/23 olanzapine 2.5 mg tablet 2.5 mg PO BEDTIME #30 tabs 06/14/23 Allergies Allergy/AdvReac Type Severity Reaction Status Date / Time No Known Allergies Allergy Verified 06/03/23 14:49 Review of Systems 2 Review of Systems: Constitutional : No Weight loss, No Fever, No Chills, No Night Sweats, complaining of fatigue ENT/Mouth : No Hearing loss, No Ear Pain, No Nasal Congestion, No Sinus Pain, No Hoarseness, No sore throat, No Rhinorrhea, No Swallowing Difficulty Eyes: No Eye Pain, No Swelling, No Redness, No Foreign Body, No Discharge, No Vision Changes Cardiovascular : No Chest Pain, No SOB, No Dyspnea on Exertion, No Orthopnea, No Edema, No Palpitations Respiratory : No Cough, No Sputum, No Wheezing, No Smoke Exposure, No Dyspnea Gastrointestinal : No Nausea, No Vomiting, No Diarrhea, No Constipation, No abdominal Pain, No Hematochezia, No Melena Genitourinary : no irregular bleeding, No Dysuria, No Urinary Frequency, No Hematuria, No Urinary Incontinence, No Urgency, No Flank Pain, No Urinary Flow Changes, No Hesitancy Musculoskeletal : No joint pain, No Myalgias, No Joint Swelling Skin : No Skin Lesions, No rash Neuro : No Weakness, No Numbness, No Paresthesias, No Loss of Consciousness, No Dizziness, No Headache Psych : No Anxiety/Panic, No Depression, No SI/HI/AH/VH, No Social Issues, Heme/Lymph: No Bruising, No Bleeding,No Lymphadenopathy Endocrine : No Polyuria, No Polydipsia, No Temperature Intolerance [facility] Past Medical History Medical History Orthostatic hypotension Hyponatremia Chronic orthostatic hypotension Hypothyroidism Chronic hyponatremia 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 Renal cell carcinoma Rectosigmoid cancer Pituitary lesion Fever of unknown origin Mass of pituitary Headache Colostomy in place HTN (hypertension) [place]-vesical fistula Surgical History History of removal of Port-a-Cath H/O hernia repair S/P colon resection Family History Family History Mother Parkinsons disease Father ESRD (end stage renal disease) Other No family history of cancer Social History Household Members: Spouse Household Members Other:: 1 Housing: House Are you a primary career services assistant to a significant other at home: No Do you presently have visiting nurse or other home services: Yes (twice a week) Alcohol intake: never Patient Tobacco Use Status: Former Tobacco user Quit Date: 30 y.o Tobacco use type: Cigarette Years Smoked: 30 years ago e-Cigarette/Vaping Use: Never Used Second Hand Smoke Exposure: No Advance Directives: Yes Advance Directives Information Provided: No Advance Directives on File: No service: Yes Current occupational status: employed and retired Cognitive needs: No Hearing needs: No Vision needs: No Physical Exam 2 Vital Signs: Vital Signs: Last Vital Signs Temp 98.0 F 06/17/23 14:52 Pulse 73 06/17/23 14:52 Resp 13 06/17/23 14:52 BP 148/72 H 06/17/23 14:52 Pulse Ox 98 06/17/23 14:52 O2 Del Method Room Air 06/17/23 14:52 BMI result Body Mass Index 19.2 Const: Other: Appearance: Alert. Oriented X3. No acute distress. Eyes: Pupils equal, round and reactive to light. ENT: Pharynx normal. Neck: Normal inspection. Neck supple. No lymph nodes noted. No crepitus CVS: Normal heart rate and rhythm. Pulses normal. Normal S1 and S2 Respiratory: No respiratory distress. Breath sounds normal. No Wheezing. No rales Abdomen: Soft and nontender. No rigidity. No distention. Skin: Skin warm and dry. Normal skin color. Normal skin turgor. Musculoskeletal: Facial muscle wasting Extremities: No lower extremity edema. No Lacerations. No Rash Neuro: Oriented X 3. No motor deficit. No sensory deficit. Moving all extremities. No slurred speech. CN 2 through 12 grossly intact Psych: calm, cooperative, normal affect Course Course Course Narrative: -all of patient's labs pending. Medical Decision Making Medical Decision Making [facility] Narrative: -patient's sodium 127. Patient is symptomatic, weakness. -was recently admitted for the same, patient's sodium eventually improved to 135. -analysis pending. Patient does not have any UTI symptoms so far. -I discussed the patient and labs with Dr. Terry, patient being admitted Differential Diagnosis Differential Diagnoses: The differential diagnosis associated with the presentation includes (Hyponatremia, viral syndrome, UTI) Admission/Observation Consideration of admission/observation: Escalation of care including admission/observation considered Consult Healthcare Provider Management of the patient was discussed with: Hospitalist Lab Data [facility] Lab Attestation statement: I reviewed the patient's lab results. 06/17/23 14:19 06/17/23 14:39 Labs: Lab Results 06/17/23 06/17/23 Range/Units 14:19 14:39 WBC 7.4 (4.8-10.8) X10*3/uL RBC 3.94 L D (4.60-5.80) X10*6/uL Hgb 12.1 L D (14.0-18.0) g/dl Hct 36.3 L D (42.0-52.0) % MCV 92.1 (80.0-98.0) fL MCH 30.7 (27.0-33.0) pg MCHC 33.3 (31.0-36.0) g/dl RDW 16.1 H (11.0-16.0) % Plt Count 255 D (160-400) X10*3/uL MPV 9.9 (9.4-12.4) fL Immature Gran % (Auto) 0.3 (0.0-0.4) % Neut % (Auto) 82.8 H (45-73) % Lymph % (Auto) 9.8 L (20-40) % [place] % (Auto) 6.5 (2-11) % Eos % (Auto) 0.5 (0-4) % Baso % (Auto) 0.1 (0-2) % Lymph # (Auto) 0.7 L (1.2-4.9) X10*3/uL [place] # (Auto) 0.5 (0.1-1.2) X10*3/uL Eos # (Auto) 0.0 (0.0-0.4) X10*3/uL Baso # (Auto) 0.0 (0.0-0.2) X10*3/uL Abs Immat Gran (auto) 0.02 (0.00-0.03) X10*3/uL Absolute Neuts (auto) 6.2 (2.0-8.3) x10*3/uL Absolute Nucleated RBC 0.000 (0.0-0.012) X10*3/uL Nucleated RBC % (auto) 0.0 (0.0-0.2) /100WBC Hold Purple Top SEE NOTE Sodium 127 L (135-145) mmol/L Potassium 4.3 (3.3-5.1) mmol/L Chloride 94 L (96-108) mmol/L Carbon Dioxide 25 (22-29) mmol/L Anion Gap 12 (12-20) BUN 7 L (9-16) mg/dL Creatinine 0.64 (0.5-1.4) mg/dL Estim Creat Clear Calc 97.3 Estimated GFR > 60 Random Glucose 79 (60-115) mg/dL Calcium 8.5 (8.4-10.2) mg/dL Magnesium 1.7 (1.6-2.6) mg/dL Total Bilirubin 0.7 (0.0-1.0) mg/dL Direct Bilirubin 0.3 (0.0-0.5) mg/dL AST 47 H (5-37) U/L ALT 23 (0-40) U/L Alkaline Phosphatase 177 H (39-117) U/L Troponin I High Sens 4.1 D (<3.5-35.0) ng/L Total Protein 5.7 L (6.5-8.0) g/dL Albumin 2.9 L (3.5-5.0) g/dL Independent Interpretation I performed an independent interpretation of an: EKG (My interpretation of EKG: Normal sinus rhythm, heart rate 76, Mrs. Segment depression or elevation, no T- wave inversion, QTC 486) Critical Care Time Critical Care Time Critical Care Time: Yes Total Critical Care Time: 60 Attestation: I have personally provided critical care time. Time includes review of lab data, radiology results, discussion with consultants, and monitoring for potential decompensation. Intervention performed as documented. Discharge Plan Discharge Clinical Impression: Acute hyponatremia, Generalized weakness Patient Disposition: Admitted As Inpatient Prescriptions: No Action levothyroxine 75 mcg capsule 75 mcg PO DAILY 30 Days Qty: 30 3RF midodrine 5 mg tablet 5 mg PO TIDWM@0900,1300,1800 Hold Instructions: blood pressure stable hold for now, follow up with pcp. Eliquis 5 mg tablet 5 mg PO BID Qty: 60 3RF olanzapine 2.5 mg Tablet 2.5 mg PO BEDTIME Qty: 30 3RF sodium chloride 1,000 mg tablet,soluble 2,000 mg PO BID ascorbate calcium (vitamin C) 500 mg tablet 500 mg PO DAILY ferrous sulfate 325 mg (65 mg iron) tablet 325 mg PO DAILY
[2023-06-17 14:20] LABS: MANUAL DIFF FLAG NO
[2023-06-17 14:23] LABS: Basophils Percent Auto 0.1 % (0-2); Eosinophils Percent Auto 0.5 % (0-4); Hematocrit 36.3 % (42.0-52.0); Hemoglobin 12.1 g/dl (14.0-18.0); Imm Gran Abs Auto 0.02 X10*3/uL (0.00-0.03); Imm Gran Pct Auto 0.3 % (0.0-0.4); Lymphocytes Absolute Auto 0.7 X10*3/uL (1.2-4.9); Lymphocytes Percent Auto 9.8 % (20-40); Mean Corpuscular HGB Conc 33.3 g/dl (31.0-36.0); Mean Corpuscular Hemoglobin 30.7 pg (27.0-33.0); Mean Corpuscular Volume 92.1 fL (80.0-98.0); Mean Platelet Volume 9.9 fL (9.4-12.4); Monocytes Absolute Auto 0.5 X10*3/uL (0.1-1.2); Monocytes Percent Auto 6.5 % (2-11); Neutrophils Absolute Auto 6.2 x10*3/uL (2.0-8.3); Neutrophils Percent Auto 82.8 % (45-73); Platelet Count 255 X10*3/uL (160-400); Red Blood Count 3.94 X10*6/uL (4.60-5.80); Red Cell Distribution Width 16.1 % (11.0-16.0); White Blood Count 7.4 X10*3/uL (4.8-10.8)
--- NOTE | 2023-06-17 14:59 | PC.NURSE ---
attempt made to access his port, would not flush, no blood return, attempt x [address] u/s iv, r ac first unsuccessful, 2nd attempt l ac placed w 2o gauge, blood sent, pt tolerated well, pt colostomy bag was coming off, pt brought most of the supplies needed and I replaced it with his assistance, c/o gen weakness, fully alert, family at bedside
[2023-06-17 15:01] LABS: Alanine Aminotransferase 23 U/L (0-40); Albumin Level 2.9 g/dL (3.5-5.0); Alkaline Phosphatase 177 U/L (39-117); Anion Gap 12 (12-20); Aspartate Amino Transferase 47 U/L (5-37); Bilirubin Direct 0.3 mg/dL (0.0-0.5); Bilirubin Total 0.7 mg/dL (0.0-1.0); Blood Urea Nitrogen 7 mg/dL (9-16); Calcium 8.5 mg/dL (8.4-10.2); Carbon Dioxide 25 mmol/L (22-29); Chloride 94 mmol/L (96-108); Creatinine Clr Calc Pharmacy 97.3; Estimated Glomerular Filt Rate > 60; Glucose Random 79 mg/dL (60-115); Magnesium 1.7 mg/dL (1.6-2.6); Potassium 4.3 mmol/L (3.3-5.1); Sodium 127 mmol/L (135-145); Total Protein 5.7 g/dL (6.5-8.0)
[2023-06-17 15:08] LABS: Troponin-I High Sensitivity 4.1 ng/L (<3.5-35.0)
[2023-06-17 15:22] LABS: TSH reflex Free T4 0.18 uIU/mL (0.32-4.0)
[2023-06-17] MEDS: Sodium Chloride Tab 1 GM TABLET PO (16:01)
[2023-06-17 16:04] LABS: Free T4 (Free Thyroxine) 0.99 ng/dL (0.71-1.85)
--- NOTE | 2023-06-17 17:01 | P.HPHOSP_ITS ---
History of Present Illness Date of Service: 06/17/23 Chief Complaint: Vomiting, weakness A 72 years old male with PMH of RCC and metastatic colon ca , Hx PE on Eliquis, hypothyroid, HTN and chronic hyponatremia on salt tablets among others who presents to the hospital with reported 1 day weakness, vomiting. He knows from experience that vomiting is a sign of his hyponatremia. he reports waking up feeling weak and having difficulties getting up from his chair. he felt sick to his stomach and had episode of vomiting. No chest pain, palpitations, SOB, abd pain, diarrhea or urinary symptoms. Found to have low sodium of 126. admitted for further evaluation and treatment. 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 Renal cell carcinoma Rectosigmoid cancer Pituitary lesion Fever of unknown origin Mass of pituitary Headache Colostomy in place HTN (hypertension) [place]-vesical fistula Family History Mother Parkinsons disease Father ESRD (end stage renal disease) Other No family history of cancer Surgical History History of removal of Port-a-Cath H/O hernia repair S/P colon resection Household Members: Spouse Household Members Other:: 1 Housing: House Are you a primary care specialist to a significant other at home: No Do you presently have visiting nurse or other home services: Yes (twice a week) Alcohol intake: never Patient Tobacco Use Status: Former Tobacco user Quit Date: 30 y.o Tobacco use type: Cigarette Years Smoked: 30 years ago Smoked in Last 30 Days: Yes e-Cigarette/Vaping Use: Never Used Second Hand Smoke Exposure: No Use of substances other than those prescribed or required for medical reasons: No Any prior treatment program specific to substance use: No Advance Directives: Yes Advance Directives Information Provided: No Advance Directives on File: No service: Yes Current occupational status: employed and retired Cognitive needs: No Hearing needs: No Vision needs: No Meds Allergies Allergy/AdvReac Type Severity Reaction Status Date / Time No Known Allergies Allergy Verified 06/03/23 14:49 Home Medications Medication Instructions Recorded Confirmed Last Taken Type ascorbate calcium (vitamin C) 500 500 mg PO DAILY 10/09/21 06/17/23 05/27/23 History mg tablet ferrous sulfate 325 mg (65 mg 325 mg PO DAILY 10/09/21 06/17/23 05/27/23 History iron) tablet midodrine 5 mg tablet 5 mg PO TIDWM@0900,1300,1800 07/08/22 06/17/23 05/27/23 History sodium chloride 1,000 mg soluble 2,000 mg PO BID 04/27/23 06/17/23 05/27/23 History tablet levothyroxine 75 mcg capsule 75 mcg PO DAILY@0630 06/17/23 06/17/23 Unknown History Physical Exam 2 Vital Signs and Narrative: Vital Signs: Last Vital Signs Temp 98.0 F 06/17/23 14:52 Pulse 77 06/17/23 16:03 Resp 14 06/17/23 16:03 BP 142/68 H 06/17/23 16:03 Pulse Ox 98 06/17/23 16:03 O2 Del Method Room Air 06/17/23 16:03 BMI result Body Mass Index 19.2 Const: Other: Constitutional - Awake and Alert, No apparent distress; appears chronically ill Cardiovascular - S1S2, RRR, No edema Respiratory - Normal lung expansion, Normal respiratory effort, CTA bilaterally Gastrointestinal -+BS; No rebound or guarding; colostomy on the left side Extremities - no calf tenderness bilaterally, trace edema Musculoskeletal - Normal inspection, normal ROM Skin - Warm/Dry Neurological - Alert & oriented x3, No focal deficit Psychological - Appropriate affect Results Labs 06/17/23 14:19 06/17/23 14:39 Labs: Laboratory Results - last 24 hr 06/17/23 06/17/23 14:19 14:39 MCV 92.1 MCH 30.7 MCHC 33.3 RDW 16.1 H Plt Count 255 D MPV 9.9 Immature Gran % (Auto) 0.3 Neut % (Auto) 82.8 H Lymph % (Auto) 9.8 L [place] % (Auto) 6.5 Eos % (Auto) 0.5 Baso % (Auto) 0.1 Lymph # (Auto) 0.7 L [place] # (Auto) 0.5 Eos # (Auto) 0.0 Baso # (Auto) 0.0 Abs Immat Gran (auto) 0.02 Absolute Neuts (auto) 6.2 Absolute Nucleated RBC 0.000 Nucleated RBC % (auto) 0.0 Hold Purple Top SEE NOTE Anion Gap 12 Estim Creat Clear Calc 97.3 Estimated GFR > 60 Random Glucose 79 Calcium 8.5 Magnesium 1.7 Total Bilirubin 0.7 Direct Bilirubin 0.3 AST 47 H ALT 23 Alkaline Phosphatase 177 H Total Protein 5.7 L Albumin 2.9 L TSH 0.18 L Free T4 0.99 Assessment and Plan (1) Acute hyponatremia: Status: Acute (2) Generalized weakness: Status: Acute Plan A 72 years old male with PMH of RCC and metastatic colon ca , Hx PE on Eliquis, hypothyroid, HTN and chronic hyponatremia on salt tablets among others who presents to the hospital with reported 1 day weakness, vomiting. Acute on chronic hyponatremia Na of 126 , from SIADH Continue salt tab home dose Start Urea Nephrology consult follow BMP Physical deconditioning PT eval History of PE Eliquis Mild protein calory malnutriton Ensure supplements Hypothyroidism Levothyroxine DVT pptx, Eliquis Patient will likely require two midnight stay in the hospital for management of hyponatremia pending specialist evaluation Quality Stroke Does the patient have a stroke diagnosis?: No VTE Prior VTE?: Yes VTE Risk Level:: Medical - moderate - high VTE Device Contraindication: Treatment Not Indicated VTE Drug Contraindication: N/A - Med Ordered
[2023-06-17] MEDS: Midodrine HCl 5 MG TABLET PO (18:37)
--- NOTE | 2023-06-17 19:33 | PC.NURSE ---
Attempted to call report at 1930, medical secretary receptionist informed me that nurse was busy. I tiger texted RN and am waiting call back
--- NOTE | 2023-06-17 19:40 | PC.NURSE ---
Gave report to Eleanor PARISI. Pt waiting transport at this time.
[2023-06-17] MEDS: Urea 15 GM POWDER 30 GM PO (19:45)
[2023-06-17] MEDS: Apixaban 5 MG TABLET PO (21:33)
[2023-06-17] MEDS: Sodium Chloride Tab 1 GM TABLET 2 GM PO (21:33)
[2023-06-17] MEDS: Urea 15 GM POWDER PO (21:33)
[2023-06-17] MEDS: 0.9 % Sodium Chloride Flush 3 ML SYRINGE IVFLUSH (21:33)
[2023-06-17] MEDS: OLANZapine 2.5 MG TABLET PO (21:33)
[2023-06-17 23:47] LABS: Appearance Urine Clear; Color Urine Yellow; Glucose Urine UA Negative (Negative); Leukocyte Esterase Urine Negative (Negative); Nitrite Urine Negative (Negative); PH 7.5 (5.0-9.0); Specific Gravity - Urine <= 1.005 (1.005-1.025); Urine Blood Negative (Negative); Urine Ketones Negative (Negative); Urine Protein Negative (Neg-Trace)
--- NOTE | 2023-06-18 03:06 | PC.NURSE ---
Pt had a scheduled Ure-NA po at 2100, just got loading dose in the Ed ay 1944, Dr. Duque said to give 2100 scheduled dose, pt tolerated.
[2023-06-18] MEDS: Levothyroxine Sodium 75 MCG TABLET PO (05:19)
[2023-06-18 07:19] VITALS: BP 183/78; PULSE 85; RESP 18; TEMP 36.4; O2SAT 98
[2023-06-18 08:12] VITALS: BP 156/74
[2023-06-18] MEDS: Midodrine HCl 5 MG TABLET PO ×3 (08:21→17:13)
[2023-06-18] MEDS: Ferrous Sulfate 324 MG TABLET.DR PO (08:21)
[2023-06-18] MEDS: Apixaban 5 MG TABLET PO ×2 (08:21→22:07)
[2023-06-18] MEDS: Ascorbic Acid 500 MG TABLET PO (08:21)
[2023-06-18] MEDS: Urea 15 GM POWDER PO ×2 (08:22→22:08)
[2023-06-18] MEDS: Sodium Chloride Tab 1 GM TABLET 2 GM PO ×2 (08:22→22:08)
[2023-06-18] MEDS: 0.9 % Sodium Chloride Flush 3 ML SYRINGE IVFLUSH ×3 (08:26→22:08)
--- NOTE | 2023-06-18 11:19 | PM.EVENT ---
Event Note Date of Service: 06/18/23 Event Note: Patient of Dr Low with hyponatremia All recent data reviewed Hyponatremia due to excess ADH Currently maintained on NaCl/PO Urea Serum Sodium stable No indication for hypertonic saline Avoid rapid correction of Na Check Serum Cortisol Shall closely follow along
--- NOTE | 2023-06-18 11:22 | MHC.CM.PN ---
CM MET WITH PT AND AT BEDSIDE PT LIVES AT HOME WITH HIS WHO ASSISTS WITH CARE PRN HE HAS A WALKER AND CANE HE IS ACTIVE WITH [facility] FOR LABS HCP AND POA ON FILE PCP: [facility] AT THE [place] [facility] DELIVERED DCP: HOME, RESUME [facility] SUPPORT FAMILY TO TRANSPORT
--- NOTE | 2023-06-18 14:04 | HO.PM.IMPN ---
Subjective Subjective Date of Service: 06/18/23 Interval History: Feels somewhat improved however sodium slow to respond. Attempting to access port for frequent lab draws Review of Systems Denies chest pain Denies shortness of breath Denies nausea vomiting diarrhea Denies fever chills Physical Exam Vital Signs: Vital Signs: Last Vital Signs Temp 97.6 F 06/18/23 07:19 Pulse 85 06/18/23 07:19 Resp 18 06/18/23 07:19 BP 156/74 H 06/18/23 08:12 Pulse Ox 98 06/18/23 07:19 O2 Del Method Room Air 06/18/23 07:19 BMI result Body Mass Index 19.2 Const: Other: Awake alert no acute distress Resp: Other: Clear to auscultation bilaterally no rales rhonchi or wheezes Cardio: Other: No S4; positive S1-S2; no S3 murmurs rubs gallops GI: Other: Soft nontender nondistended normoactive bowel sounds. Ostomy site without issues Extrem: Other: No edema bilaterally Objective Data Active Medications Acetaminophen (Acetaminophen 325 Mg Tablet) 650 mg PO Q6H PRN PRN Reason: Pain, Mild (Pain Scale 1-3) Apixaban (Apixaban 5 Mg Tablet) 5 mg PO BID [facility] Last Admin: 06/18/23 08:21 Dose: 5 mg Documented By: OVIDIO Ascorbic Acid (Ascorbic Acid 500 Mg Tablet) 500 mg PO DAILY [facility] Last Admin: 06/18/23 08:21 Dose: 500 mg Documented By: OVIDIO Ferrous Sulfate (Ferrous Sulfate 324 Mg Tablet.) 324 mg PO DAILY [facility] Last Admin: 06/18/23 08:21 Dose: 324 mg Documented By: OVIDIO Levothyroxine Sodium (Levothyroxine Sodium 75 Mcg Tablet) 75 mcg PO DAILY@0630 [facility] Last Admin: 06/18/23 05:19 Dose: 75 mcg Documented By: PAULETTE Midodrine (Midodrine Hcl 5 Mg Tablet) 5 mg PO TIDWM@0900,1300,1800 [facility] Last Admin: 06/18/23 13:04 Dose: 5 mg Documented By: OVIDIO Olanzapine (Olanzapine 2.5 Mg Tablet) 2.5 mg PO BEDTIME [facility] Last Admin: 06/17/23 21:33 Dose: 2.5 mg Documented By: PAULETTE Ondansetron HCl (Ondansetron Hcl 4 Mg/2 Ml Vial) 4 mg IVPUSH Q8H PRN PRN Reason: Nausea and Vomiting Sodium Chloride (0.9 % Sodium Chloride Flush 3 Ml Syringe) 3 ml IVFLUSH QSHIFT [facility] Last Admin: 06/18/23 08:26 Dose: 3 ml Documented By: OIVDIO Sodium Chloride (Sodium Chloride Tab 1 Gm Tablet) 2 gm PO BID [facility] Last Admin: 06/18/23 08:22 Dose: 2 gm Documented By: OVIDIO Urea (Urea 15 Gm Powder) 15 gm PO BID [facility] Last Admin: 06/18/23 08:22 Dose: 15 gm Documented By: OVIDIO Labs 06/17/23 14:19 06/17/23 14:39 Labs: Laboratory Results - last 24 hr 06/17/23 06/17/23 06/17/23 14:19 14:39 23:36 MCV 92.1 MCH 30.7 MCHC 33.3 RDW 16.1 H Plt Count 255 D MPV 9.9 Immature Gran % (Auto) 0.3 Neut % (Auto) 82.8 H Lymph % (Auto) 9.8 L [place] % (Auto) 6.5 Eos % (Auto) 0.5 Baso % (Auto) 0.1 Lymph # (Auto) 0.7 L [place] # (Auto) 0.5 Eos # (Auto) 0.0 Baso # (Auto) 0.0 Abs Immat Gran (auto) 0.02 Absolute Neuts (auto) 6.2 Absolute Nucleated RBC 0.000 Nucleated RBC % (auto) 0.0 Hold Purple Top SEE NOTE Anion Gap 12 Estim Creat Clear Calc 97.3 Estimated GFR > 60 Random Glucose 79 Calcium 8.5 Magnesium 1.7 Total Bilirubin 0.7 Direct Bilirubin 0.3 AST 47 H ALT 23 Alkaline Phosphatase 177 H Total Protein 5.7 L Albumin 2.9 L TSH 0.18 L Free T4 0.99 Urine Color Yellow Urine Appearance Clear Urine pH 7.5 Ur Specific [place] <= 1.005 Urine Protein Negative Urine Glucose (UA) Negative Urine Ketones Negative Urine Blood Negative Urine Nitrite Negative Ur Leukocyte Esterase Negative Assessment and Plan (1) Acute hyponatremia: Status: Acute (2) Pulmonary embolism: Status: Acute Plan A 72 years old male with PMH of RCC and metastatic colon ca , Hx PE on Eliquis, hypothyroid, HTN and chronic hyponatremia on salt tablets among others who presents to the hospital with reported 1 day weakness, vomiting in backdrop of chronic hyponatremia 1.Acute on chronic hyponatremia -Na pending this a.m. -continue Urea as ordered -follow renal/divalents 2.History of PE -Eliquis 3.Hypothyroidism -Levothyroxine as ordered Full code Eliquis Patient will require ongoing hospitalization to ensure stabilization of hyponatremia and ongoing specialist consultation Quality Stroke Does the patient have a stroke diagnosis?: No VTE Prior VTE?: Yes VTE Risk Level:: Medical - moderate - high VTE Device Contraindication: Treatment Not Indicated VTE Drug Contraindication: N/A - Med Ordered
[2023-06-18 14:46] VITALS: BMI 19.2
--- NOTE | 2023-06-18 14:57 | MHC.CLN ---
NUTRITION DIET=REGULAR WITH 1200 ML FLUID RESTRICTION. NUTRITION DX NON SEVERE, MODERATE MALNUTRITION IN THE CONTEXT OF CHRONIC ILLNESS. BMI=19.2 BUT PATIENT IS UNDERWEIGHT FOR HEIGHT, 79% IBW. MILD DEPLETION OF BODY FAT AND MUSCLE MASS NOTED. SUPPLEMENT CHANGED TO ENSURE MAX BID. PROVIDES 300 KCALS. 60 G PROTEIN, 600 ML FREE WATER IF CONSUMED 100%. FOLLOW FOR INTAKE AND LABS.
[2023-06-18 15:17] VITALS: BP 169/79; PULSE 84; RESP 18; TEMP 36.6; O2SAT 99
[2023-06-18 15:39] LABS: Anion Gap 10 (12-20); Blood Urea Nitrogen 30 mg/dL (9-16); Calcium 8.5 mg/dL (8.4-10.2); Carbon Dioxide 26 mmol/L (22-29); Chloride 103 mmol/L (96-108); Creatinine Clr Calc Pharmacy 100.5; Estimated Glomerular Filt Rate > 60; Glucose Random 104 mg/dL (60-115); Potassium 3.8 mmol/L (3.3-5.1); Sodium 135 mmol/L (135-145)
[2023-06-18 19:37] VITALS: BP 145/65; PULSE 81; RESP 18; TEMP 36.3; O2SAT 98
[2023-06-18] MEDS: OLANZapine 2.5 MG TABLET PO (22:08)
[2023-06-19] VITALS: BP 140/72; PULSE 80; RESP 18; TEMP 36.2; O2SAT 97
[2023-06-19] MEDS: Levothyroxine Sodium 75 MCG TABLET PO (06:01)
[2023-06-19 07:48] VITALS: BP 160/94; PULSE 83; RESP 18; TEMP 36; O2SAT 96
[2023-06-19] MEDS: Apixaban 5 MG TABLET PO (08:46)
[2023-06-19] MEDS: Ascorbic Acid 500 MG TABLET PO (08:46)
[2023-06-19] MEDS: 0.9 % Sodium Chloride Flush 3 ML SYRINGE IVFLUSH (08:46)
[2023-06-19] MEDS: Ferrous Sulfate 324 MG TABLET.DR PO (08:47)
[2023-06-19] MEDS: Midodrine HCl 5 MG TABLET PO (08:47)
[2023-06-19] MEDS: Sodium Chloride Tab 1 GM TABLET 2 GM PO (08:47)
--- NOTE | 2023-06-19 10:37 | PM.DS ---
DS: Providers Provider Date of Service: 06/19/23 Date of admission: 06/17/23 16:57 Date of discharge: 06/19/23 Primary care physician: Unknown Physician Consults: 06/17/23 16:57 Consult to Nephrology Routine Consulting Provider: [facility] Reason for consultation: acute on chronic hyponatremia DS: Diagnosis Discharge Diagnosis (1) Acute hyponatremia: Status: Acute (2) Pulmonary embolism: Status: Acute DS: Summary Hospital Course Hospital Course: 72 years old male with PMH of RCC and metastatic colon ca , Hx PE on Eliquis, hypothyroid, HTN and chronic hyponatremia on salt tablets among others who presents to the hospital with reported 1 day weakness, vomiting. He knows from experience that vomiting is a sign of his hyponatremia. he reports waking up feeling weak and having difficulties getting up from his chair. he felt sick to his stomach and had episode of vomiting. No chest pain, palpitations, SOB, abd pain, diarrhea or urinary symptoms. Found to have low sodium of 126. admitted for further evaluation and treatment. Hospital Course Admitted to general medical floor and seen in consultation by Nephrology. Has a history of acute on chronic hyponatremia. As per Nephrology patient started on urea 15 g b.i.d. with improvement of sodium over time. At the day of discharge sodium is 134 and patient can follow-up with his oncologist and parole agent in continue this cares an outpatient. He is quite anxious to be discharged I believe he is medically acceptable for same Time Attestation Discharge coordination time: Greater than 30 minutes Quality: Safe Use of Opioids Does Pt have an Active Cancer Diagnosis on the Problem List?: No Quality: Stroke Does the patient have a stroke diagnosis?: No Physical Exam Vital Signs: Vital Signs: Last Vital Signs Temp 96.8 F 06/19/23 07:48 Pulse 83 06/19/23 07:48 Resp 18 06/19/23 07:48 BP 160/94 H 06/19/23 07:48 Pulse Ox 96 06/19/23 07:48 O2 Del Method Room Air 06/19/23 07:48 BMI result Body Mass Index 19.2 Const: Other: Awake alert no acute distress Resp: Other: Clear to auscultation bilaterally no rales rhonchi or wheezes Cardio: Other: No S4; positive S1-S2; no S3 murmurs rubs gallops GI: Other: Soft nontender nondistended normoactive bowel sounds. Ostomy site without issues Extrem: Other: No edema bilaterally DS: Data Data Completed and Pending Completed studies during hospitalization [Text1]: Procedures Bypass Sigmoid Colon to Cutaneous, Open Approach (09/02/21) Drainage of Right Kidney, Percutaneous Approach, Diagnostic (09/02/21) Excision of Bladder, Open Approach (09/02/21) Excision of Rectum, Open Approach (09/02/21) Excision of Right Kidney, Percutaneous Approach, Diagnostic (09/02/21) Excision of Sigmoid Colon, Open Approach (09/02/21) Excision of Sigmoid Colon, Via Natural or Artificial Opening Endoscopic, Diagnostic (09/02/21) Release Peritoneum, Open Approach (12/30/21) Removal of Drainage Device from Peritoneal Cavity, Open Approach (12/30/21) Removal of Infusion Device from Great Vessel, Open Approach (07/10/22) Removal of Tunneled Vascular Access Device from Trunk Subcutaneous Tissue and Fascia, Open Approach (07/10/22) Repair Bladder, Open Approach (09/02/21) Labs on day of discharge: Laboratory Results - last 24 hr 06/18/23 14:53 Sodium 135 Potassium 3.8 Chloride 103 Carbon Dioxide 26 Anion Gap 10 L BUN 30 H Creatinine 0.62 Estim Creat Clear Calc 100.5 Estimated GFR > 60 Random Glucose 104 Calcium 8.5 Discharge Plan Discharge Anticipated Discharge Date/Time: 06/19/23 10:32 Patient Disposition: Home, Self-Care Discharge Diagnosis: Acute hyponatremia Referrals: Physician,Unknown J [Primary Care Provider] - 1 Week Discharge Medications: Continued midodrine 5 mg tablet 5 mg PO TIDWM@0900,1300,1800 Hold Instructions: blood pressure stable hold for now, follow up with pcp. Eliquis 5 mg tablet 5 mg PO BID Qty: 60 3RF olanzapine 2.5 mg Tablet 2.5 mg PO BEDTIME Qty: 30 3RF sodium chloride 1,000 mg tablet,soluble 2,000 mg PO BID levothyroxine 75 mcg capsule 75 mcg PO DAILY@0630 ascorbate calcium (vitamin C) 500 mg tablet 500 mg PO DAILY ferrous sulfate 325 mg (65 mg iron) tablet 325 mg PO DAILY Discharge Orders: Discharge Order (Routine); Ordered 06/19/23 Ordered By: Royer Lockwood Diet: Advance to usual diet Activity on Discharge: As tolerated Stand Alone Forms: Patient Portal Discharge page Care Plan Goals: Continue previous home regimen of medications. Add urea powder 15 g twice daily as ordered Health Concerns: Follow-up with Dr. Cisneros 06/21 for repeat labs Plan of Treatment: Maintain your water restriction as ordered. Follow up with Renal as planned Assessment: See discharge summary
--- NOTE | 2023-06-19 10:47 | MHC.CM.PN ---
PT WILL DC HOME TODAY WITH RESUMPTION OF [facility] SERVICES [facility] NOTIFIED VIA [facility] TO TRANSPORT
--- NOTE | 2023-06-22 08:45 | P.F2F_ITS ---
Service Date Service Date: 06/22/23 Encounter Date of encounter: 06/19/23 Encounter: Acute hospitalization Reasons for Services Signs and symptoms assessed: Observe for signs of weakness and confusion consistent with hyponatremia Reason for long-term: medication management and teach disease management Homebound: Leaving the home is medically contraindicated at this time without the asist of a device and/or another person due th the listed conditions above and below. Reason homebound: unsteady gait / fall risk, poor balance / fall risk and unable to drive Certification: Based on the above findings, I certify that this patient is confined to the home and needs intermittent long-term care, physical therapy and/or speech therapy, or continues to need occupational therapy. The patient is under my ca re, and I have initiated the establishment of the plan of care. The patient will be followed by a physician who will periodically review the plan of care. Time Spent With Patient Time: Total time managing care of this patient today ____ minutes.
== END 2023-06-19 13:25 | disposition home health service (06) | DRG 644 ==
LOC: HO.ED 15:40 → HO.EDOVER 17:02 → HO.S3 17:31
PROVIDERS: Admitting Provider Student in an Organized Health Care Education/Training Program; Emergency Provider Emergency Medicine; PCP Internal Medicine; Visit Provider Hospitalist
DX: E22.2 Syndrome of inappropriate secretion of antidiuretic hormone (principal); E44.1 Mild protein-calorie malnutrition; Z68.1 Body mass index [BMI] 19.9 or less, adult; E03.8 Other specified hypothyroidism; Z86.711 Personal history of pulmonary embolism; Z87.891 Personal history of nicotine dependence; Z85.528 Personal history of other malignant neoplasm of kidney; Z85.038 Personal history of other malignant neoplasm of large intestine; Z79.01 Long term (current) use of anticoagulants; Z79.890 Hormone replacement therapy; Z79.899 Other long term (current) drug therapy
CPT/HCPCS: 36415; 80048; 80076; 81003; 83735; 84439; 84443; 84484; 85025; 93005; 99285

== ENCOUNTER → 2023-06-17 16:57 | Outpatient (BNV) | payer OTHER, SELFPAY | PROVIDERS: Admitting Provider Student in an Organized Health Care Education/Training Program; Emergency Provider Emergency Medicine; Visit Provider Student in an Organized Health Care Education/Training Program | DX: E87.1 Hypo-osmolality and hyponatremia (principal); I26.99 Other pulmonary embolism without acute cor pulmonale | CPT/HCPCS: 99222; 99233; 99239; G0180 ==

== ENCOUNTER → 2023-06-17 16:57 | Outpatient (BNV) | payer OTHER, SELFPAY | PROVIDERS: Admitting Provider Student in an Organized Health Care Education/Training Program; Emergency Provider Emergency Medicine; Visit Provider Internal Medicine Nephrology | DX: E87.1 Hypo-osmolality and hyponatremia (principal) | CPT/HCPCS: 99499 ==

== ENCOUNTER 2023-06-28 11:28 | Outpatient (REF) | payer MEDICARE, SELFPAY ==
[2023-06-29 11:08] LABS: Anion Gap 11 (12-20); Blood Urea Nitrogen 7 mg/dL (9-16); Carbon Dioxide 23 mmol/L (22-29); Chloride 100 mmol/L (96-108); Estimated Glomerular Filt Rate > 60; Glucose Random 106 mg/dL (60-115); Sodium 130 mmol/L (135-145)
== END 2023-06-28 11:29 | disposition home or self-care (01) ==
LOC: HO.HVNA 11:28
PROVIDERS: Visit Provider Internal Medicine
DX: E87.1 Hypo-osmolality and hyponatremia (principal)
CPT/HCPCS: 36415; 80048

== ENCOUNTER 2023-07-06 12:00 | Outpatient (REF) | payer MEDICARE, SELFPAY ==
[2023-07-06 16:33] LABS: Anion Gap 11 (12-20); Blood Urea Nitrogen 18 mg/dL (9-16); Calcium 8.1 mg/dL (8.4-10.2); Carbon Dioxide 25 mmol/L (22-29); Chloride 103 mmol/L (96-108); Estimated Glomerular Filt Rate > 60; Glucose Random 110 mg/dL (60-115); Potassium 3.6 mmol/L (3.3-5.1); Sodium 135 mmol/L (135-145)
== END 2023-07-06 12:01 | disposition home or self-care (01) ==
LOC: HO.HVNA 12:00
PROVIDERS: Visit Provider Internal Medicine
DX: E87.1 Hypo-osmolality and hyponatremia (principal)
CPT/HCPCS: 36415; 80048

== ENCOUNTER 2023-07-12 09:10 | Outpatient (REF) | payer MEDICARE, SELFPAY ==
[2023-07-12 13:59] LABS: Anion Gap 12 (12-20); Blood Urea Nitrogen 10 mg/dL (9-16); Calcium 8.1 mg/dL (8.4-10.2); Carbon Dioxide 23 mmol/L (22-29); Chloride 97 mmol/L (96-108); Estimated Glomerular Filt Rate > 60; Glucose Random 121 mg/dL (60-115); Sodium 128 mmol/L (135-145)
== END 2023-07-12 09:11 | disposition home or self-care (01) ==
LOC: HO.HMGCLNP 09:10
PROVIDERS: Visit Provider Internal Medicine
DX: E87.1 Hypo-osmolality and hyponatremia (principal)
CPT/HCPCS: 80048

== ENCOUNTER 2023-07-21 11:51 | Emergency (ER) | payer OTHER, SELFPAY ==
--- NOTE | ~2023-07-21 | CT_ITS ---
CT HEAD WITHOUT IV CONTRAST INDICATION: Weakness. COMPARISON: Head CT 07/22/2022. TECHNIQUE: Multidetector CT acquisitions of the head was obtained without IV contrast. This CT examination was performed using dose optimization techniques as appropriate, variously including the following: *Automated exposure control *Adjustment of mA and/or kV according to patient size (this includes techniques or standardized protocols for targeted exams where dose is matched to indication/reason for exam; i.e. extremities or head) *Use of iterative reconstruction technique FINDINGS: Mild chronic microangiopathy and a chronic lacunar infarct within the right caudate again noted. Atherosclerotic calcification throughout the intracranial arterial vasculature. There is no intracranial hemorrhage, hydrocephalus, extra-axial surface collection, midline shift, or other herniation pattern. Oleary to white matter differentiation is diffusely maintained without evidence of an evolved acute territorial infarct. The basilar cisterns are preserved. No significant soft tissue abnormality. No acute osseous abnormality. The paranasal sinuses and the mastoid air cells are well aerated. CT/CT head/brain wo IV con IMPRESSION: - No acute intracranial abnormality. Mild chronic microangiopathy and a chronic lacunar infarct within the right caudate again noted. Atherosclerotic calcification throughout the intracranial arterial vasculature. - Stable appearing round 2.2 cm sellar mass that has been previously evaluated with MRI and that is likely unchanged accounting for technical differences.
--- NOTE | ~2023-07-21 | XR_ITS ---
EXAMINATION: XR CHEST CLINICAL INFORMATION: Weakness COMPARISON: 05/28/2023 TECHNIQUE: Frontal view of the chest was obtained. FINDINGS: Tunneled chest port with internal tip in superior vena cava. Heart, mediastinum, pulmonary vessels and lung manzano within normal limits. Bony structures are intact. XR/XR chest 1V IMPRESSION: No acute cardiopulmonary disease.
[2023-07-21 11:57] VITALS: BMI 18.1
[2023-07-21 12:02] VITALS: BP 140/66; PULSE 89; RESP 16; O2SAT 98
--- NOTE | 2023-07-21 12:04 | PC.NURSE ---
a&ox4, vss and up to date, nsr on the front desk monitor. pt comes in d/t possible stroke alert. pt's spouse confirmed LKW at 0830 this am. pt comes in today d/t new onset weakness/lethargy/slurred speech upon waking up. ED provider cancelled stroke alert/CT scan. no sob/wob noted. respirations even and unlabored. call villatoro placed within reach.
--- NOTE | 2023-07-21 12:11 | ED_ITS ---
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 Patient states that he got up this morning around 08:00 hours in uses cane to walk to his chair. He states that he felt very weak. He denied dizziness or lightheadedness. He denied headache, nausea, vomiting or change in the output from his colostomy bag. He denied fever, chills, rhinorrhea, cough. He states he does feel short of breath. According the paramedics the patient's was concerned about his lethargy and has weakness as well as slurred speech therefore she called an ambulance and had the patient brought to emergency department for evaluation. Related Data Home Medications Medication Instructions Recorded Confirmed ascorbate calcium (vitamin C) 500 500 mg PO DAILY 10/09/21 07/15/23 mg tablet ferrous sulfate 325 mg (65 mg 325 mg PO DAILY 10/09/21 07/15/23 iron) tablet midodrine 5 mg tablet 5 mg PO TIDWM@0900,1300,1800 07/08/22 07/15/23 sodium chloride 1,000 mg soluble 2,000 mg PO BID 04/27/23 07/15/23 tablet levothyroxine 75 mcg capsule 75 mcg PO DAILY@0630 06/17/23 07/15/23 Previous Rx's Medication Instructions Recorded apixaban 5 mg tablet (Eliquis) 5 mg PO BID #60 tabs 04/29/23 olanzapine 2.5 mg tablet 2.5 mg PO BEDTIME #30 tabs 06/14/23 urea 15 gram oral powder packet 1 packet PO DAILY #30 ea 07/15/23 Allergies Allergy/AdvReac Type Severity Reaction Status Date / Time No Known Allergies Allergy Verified 07/21/23 11:57 Review of Systems 2 Review of Systems: Yes all other systems are reviewed and are negative [facility] Past Medical History [facility] Narrative: Social history: He lives with his . He denies tobacco, alcohol and drug use. 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 Renal cell carcinoma Rectosigmoid cancer Pituitary lesion Fever of unknown origin Mass of pituitary Headache Colostomy in place HTN (hypertension) Brilliant-vesical fistula Surgical History History of removal of Port-a-Cath H/O hernia repair S/P colon resection Family History Family History Mother Parkinsons disease Father ESRD (end stage renal disease) Other No family history of cancer Social History Social History Household Members: Spouse Household Members Other:: 1 Housing: House Are you a primary family day care worker to a significant other at home: No Do you presently have visiting nurse or other home services: Yes Alcohol intake: never Patient Tobacco Use Status: Former Tobacco user Quit Date: 30 y.o Tobacco use type: Cigarette Years Smoked: 30 years ago Smoked in Last 30 Days: No e-Cigarette/Vaping Use: Never Used Second Hand Smoke Exposure: No Use of substances other than those prescribed or required for medical reasons: No Advance Directives: Yes Advance Directives on File: Yes Advance Directives Date on File: 06/17/23 service: Yes Current occupational status: employed and retired Cognitive needs: No Hearing needs: No Vision needs: No Physical Exam 2 Vital Signs: Vital Signs: Last Vital Signs Pulse 89 07/21/23 12:02 Resp 16 07/21/23 12:02 BP 140/66 H 07/21/23 12:02 Pulse Ox 98 07/21/23 12:02 O2 Del Method Room Air 07/21/23 12:02 BMI result Body Mass Index 18.1 Vital signs were normal Exam: General: Awake, alert in no distress Head: Normocephalic, atraumatic EENT: PERRL, Lids normal, sclera normal, conjunctiva normal, nose normal , ears normal, throat without erythema or exudates Neck: Supple, no adenopathy, no trachea midline or C-spine tenderness Lung: breath sounds symmetric, no wheezing, rales or rhonchi Chest: symmetric movement, nontender Heart: regular rate and rhythm, normal S1, S2 no murmurs or rubs Abdomen: soft, non-tender, nondistended, normal bowel sounds, left lower abdomen colostomy bag with brown stool in the bag Back: no vertebral tenderness, no CVAT Extremities: no deformities, moves all extremities symmetrically Neuro: Awake, alert, oriented, normal speech, cranial nerves intact, moves all extremities symmetrically Psych: Pleasant, cooperative Medications Administered Discontinued Medications Generic Name Dose Route Start Last Admin Trade Name Freq PRN Reason Stop Dose Admin Sodium Chloride 1,000 mls @ 999 mls/hr 07/21/23 12:23 07/21/23 13:03 Ns IV 07/21/23 13:23 999 mls/hr .Q1H1M STA Administration Medical Decision Making Medical Decision Making [facility] Narrative: 72-year-old male with history of hypothyroidism, hyponatremia, hypertension, 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 He had no other concerning symptoms except for his weakness. Patient's vital signs were normal and he was afebrile. Physical examination was normal with a nonfocal neurologic exam. Following evaluation was ordered: CBC, CMP, CK, drug screen, ethanol, lactic acid, lipase, PT/INR, troponin, urinalysis, blood cultures, troponin, EKG, chest x-ray, CT scan of the brain. Patient was treated with normal saline IV x1 L. 14:51 My independent interpretation the patient's laboratory evaluation is as follows: WBC was normal 5100. Patient has chronic anemia with an H&H of 10.4 and 31.8. INR was elevated 1.6. Sodium was 133 which is chronic-lowest documented was 121. BUN elevated 17 with normal creatinine of 0.62. Lactic acid was elevated 2.2. AST elevated 48, alk-phos elevated 142. CK was normal. Ethanol was below detectable limits. Influenza, COVID and RSV were negative. The patient has no urinary tract symptoms but I will obtain a urine and send it for culture. The patient has not completed his L of the fluid yet however I think that he can be discharged 1 completed. Differential Diagnosis Differential Diagnoses: The differential diagnosis associated with the presentation includes Differential diagnosis includes was not limited to orthostatic hypotension, hyponatremia, electrolyte abnormality, anemia, stroke, cerebral bleed, brain metastases Admission/Observation Consideration of admission/observation: Escalation of care including admission/observation considered Consult Healthcare Provider Management of the patient was discussed with: Str[employer] And Binder Controller (Dr. Cisneros, patient's hematology oncologist) Lab Data MDM Lab Attestation statement: I reviewed the patient's lab results. 07/21/23 14:08 07/21/23 14:08 Labs: Lab Results 07/21/23 07/21/23 Range/Units 12:54 14:08 WBC 5.1 (4.8-10.8) X10*3/uL RBC 3.57 L (4.60-5.80) X10*6/uL Hgb 10.4 L (14.0-18.0) g/dl Hct 31.8 L (42.0-52.0) % MCV 89.1 (80.0-98.0) fL MCH 29.1 (27.0-33.0) pg MCHC 32.7 (31.0-36.0) g/dl RDW 15.3 (11.0-16.0) % Plt Count 181 (160-400) X10*3/uL MPV 10.1 (9.4-12.4) fL Immature Gran % (Auto) 0.4 (0.0-0.4) % Neut % (Auto) 62.8 (45-73) % Lymph % (Auto) 24.2 (20-40) % [place] % (Auto) 9.4 (2-11) % Eos % (Auto) 2.8 (0-4) % Baso % (Auto) 0.4 (0-2) % Lymph # (Auto) 1.2 (1.2-4.9) X10*3/uL [place] # (Auto) 0.5 (0.1-1.2) X10*3/uL Eos # (Auto) 0.1 (0.0-0.4) X10*3/uL Baso # (Auto) 0.0 (0.0-0.2) X10*3/uL Abs Immat Gran (auto) 0.02 (0.00-0.03) X10*3/uL Absolute Neuts (auto) 3.2 (2.0-8.3) x10*3/uL Absolute Nucleated RBC 0.000 (0.0-0.012) X10*3/uL Nucleated RBC % (auto) 0.0 (0.0-0.2) /100WBC PT 19.6 H (11.1-13.3) SEC INR 1.6 H (0.9-1.1) Sodium 133 L (135-145) mmol/L Potassium 3.6 (3.3-5.1) mmol/L Chloride 104 (96-108) mmol/L Carbon Dioxide 24 (22-29) mmol/L Anion Gap 9 L (12-20) BUN 17 H (9-16) mg/dL Creatinine 0.62 (0.5-1.4) mg/dL Estim Creat Clear Calc 97.4 Estimated GFR > 60 Random Glucose 97 (60-115) mg/dL Lactic Acid 2.2 H* (0.5-2.0) mmol/L Calcium 8.5 (8.4-10.2) mg/dL Total Bilirubin 0.6 (0.0-1.0) mg/dL AST 48 H (5-37) U/L ALT 22 (0-40) U/L Alkaline Phosphatase 142 H (39-117) U/L Total Creatine Kinase 35 L (38-174) U/L B-Natriuretic Peptide 88 (<100) pg/mL Total Protein 5.0 L (6.5-8.0) g/dL Albumin 2.5 L (3.5-5.0) g/dL Lipase 15 (8-78) U/L Ethyl Alcohol < 10 mg/dL Influenza Type A (PCR) NEGATIVE (Negative) Influenza Type B (PCR) NEGATIVE (Negative) RSV RNA Qual (PCR) NEGATIVE (Negative) SARS-CoV-2 RNA (RT-PCR) NEGATIVE (Negative) Independent Interpretation I performed an independent interpretation of an: EKG and Plain X-Ray Interpretation: My independent interpretation patient's one-view chest x-ray is as follows: No acute disease My independent interpretation of the patient's 12 EKG done at 12:51 hours is as follows: Normal sinus rhythm rate of 75, normal MA interval, QRS duration, QTC interval, no ST segment elevation, no ST segment depression, no PACs no PVCs, no T-wave abnormalities, this is a normal EKG. Radiology Impression Discussion of test interpretation with radiology: I have reviewed the radiologist's reading. Radiologist Impression: XR chest 1V IMPRESSION: No acute cardiopulmonary disease. Dictated By: Beti Stephens MD CT head/brain wo IV con IMPRESSION: - No acute intracranial abnormality. Mild chronic microangiopathy and a chronic lacunar infarct within the right caudate again noted. Atherosclerotic calcification throughout the intracranial arterial vasculature. - Stable appearing round 2.2 cm sellar mass that has been previously evaluated with MRI and that is likely unchanged accounting for technical differences. Dictated By: Liban Ferguson MD Independent Historian Clinical information obtained from an independent historian. History obtained from or confirmed by: Spouse and Other (Dr. Cisneros) External Record Review External record reviewed: Inpatient record ([facility]) Chronic Conditions Patient?s care impacted by: Cancer Discharge Plan Discharge Clinical Impression: Weakness, Acute dehydration Patient Disposition: Home, Self-Care Additional Instructions: Your blood work was unremarkable. The CT scan of your brain did not reveal any new tumors, you do have the pituitary tumor but it is unchanged compared to the previous CT scan. Your chest x-ray was normal with no evidence of pneumonia Your EKG was normal. Continue taking medications as prescribed by your providers. Increase your food and fluid intake over the next several days. Follow-up with your doctor in 2 days. Please return to the emergency department if your symptoms get worse or if you develop any symptoms that are concerning to you. Prescriptions: No Action midodrine 5 mg tablet 5 mg PO TIDWM@0900,1300,1800 Hold Instructions: blood pressure stable hold for now, follow up with pcp. Eliquis 5 mg tablet 5 mg PO BID Qty: 60 3RF olanzapine 2.5 mg Tablet 2.5 mg PO BEDTIME Qty: 30 3RF urea 15 gram Powder In Packet 1 packet PO DAILY Qty: 30 3RF Rx Instructions: Take 1 packet mixed in beverage, twice a day, Mon/Wed/Fri sodium chloride 1,000 mg tablet,soluble 2,000 mg PO BID levothyroxine 75 mcg capsule 75 mcg PO DAILY@0630 ascorbate calcium (vitamin C) 500 mg tablet 500 mg PO DAILY ferrous sulfate 325 mg (65 mg iron) tablet 325 mg PO DAILY
--- NOTE | 2023-07-21 12:24 | ECG_ITS ---
Test Reason : WEAKNESS Blood Pressure : / mmHG Vent. Rate : 075 BPM Atrial Rate : 075 BPM P-R Int : 136 ms QRS Dur : 084 ms QT Int : 408 ms P-R-T Axes : 078 080 066 degrees QTc Int : 455 ms Normal sinus rhythm Normal ECG When compared with ECG of 17-JUN-2023 14:50, No significant change was found Referred By: Kenton Smith Electronically Signed By:WILLEM GARCIA
[2023-07-21] MEDS: 0.9 % Sodium Chloride 1,000 ML 999 ML IV (13:03)
[2023-07-21 13:37] LABS: Influenza A PCR NEGATIVE (Negative); Influenza B PCR NEGATIVE (Negative); Resp Syncy Virus RNA Qual PCR NEGATIVE (Negative); SARS COV2 PCR INHOUSE NEGATIVE (Negative)
--- NOTE | 2023-07-21 14:10 | PC.NURSE ---
tech bedside obtaining labs at this time.
--- NOTE | 2023-07-21 14:14 | MHC.EDTECH ---
Patient difficult draw, first cultures drawn unable to obtain second set due to being such a difficult draws per nurse.RN Aware.
[2023-07-21 14:18] LABS: MANUAL DIFF FLAG NO
[2023-07-21 14:19] LABS: Basophils Percent Auto 0.4 % (0-2); Eosinophils Absolute Auto 0.1 X10*3/uL (0.0-0.4); Eosinophils Percent Auto 2.8 % (0-4); Hematocrit 31.8 % (42.0-52.0); Hemoglobin 10.4 g/dl (14.0-18.0); Imm Gran Abs Auto 0.02 X10*3/uL (0.00-0.03); Imm Gran Pct Auto 0.4 % (0.0-0.4); Lymphocytes Absolute Auto 1.2 X10*3/uL (1.2-4.9); Lymphocytes Percent Auto 24.2 % (20-40); Mean Corpuscular HGB Conc 32.7 g/dl (31.0-36.0); Mean Corpuscular Hemoglobin 29.1 pg (27.0-33.0); Mean Corpuscular Volume 89.1 fL (80.0-98.0); Mean Platelet Volume 10.1 fL (9.4-12.4); Monocytes Absolute Auto 0.5 X10*3/uL (0.1-1.2); Monocytes Percent Auto 9.4 % (2-11); Neutrophils Absolute Auto 3.2 x10*3/uL (2.0-8.3); Neutrophils Percent Auto 62.8 % (45-73); Platelet Count 181 X10*3/uL (160-400); Red Blood Count 3.57 X10*6/uL (4.60-5.80); Red Cell Distribution Width 15.3 % (11.0-16.0); White Blood Count 5.1 X10*3/uL (4.8-10.8)
[2023-07-21 14:27] LABS: INTERNATIONAL NORM RATIO 1.6 (0.9-1.1); Prothrombin Time 19.6 SEC (11.1-13.3)
[2023-07-21 14:37] LABS: Lactic Acid 2.2 mmol/L (0.5-2.0)
[2023-07-21 14:38] LABS: Ethanol < 10 mg/dL
[2023-07-21 14:40] LABS: Alanine Aminotransferase 22 U/L (0-40); Albumin Level 2.5 g/dL (3.5-5.0); Alkaline Phosphatase 142 U/L (39-117); Anion Gap 9 (12-20); Aspartate Amino Transferase 48 U/L (5-37); Bilirubin Total 0.6 mg/dL (0.0-1.0); Blood Urea Nitrogen 17 mg/dL (9-16); Calcium 8.5 mg/dL (8.4-10.2); Carbon Dioxide 24 mmol/L (22-29); Chloride 104 mmol/L (96-108); Creatinine Clr Calc Pharmacy 97.4; Estimated Glomerular Filt Rate > 60; Glucose Random 97 mg/dL (60-115); Lipase 15 U/L (8-78); Potassium 3.6 mmol/L (3.3-5.1); Sodium 133 mmol/L (135-145)
[2023-07-21 14:43] LABS: B Type Natriuretic Peptide 88 pg/mL (<100)
[2023-07-21 15:17] LABS: Troponin-I High Sensitivity < 2.7 ng/L (<3.5-35.0)
[2023-07-21 15:45] VITALS: BP 150/58; PULSE 63; RESP 10; TEMP 36.4; O2SAT 99
--- NOTE | 2023-07-21 16:04 | PC.NURSE ---
IV fluids unable to be administered via access that EMS placed - port accessed in right side of chest without difficulties. sterile technique performed. IV fluids completely infused and administered at this time.
[2023-07-21 16:14] LABS: Reflex Lactate? Lactic Acid Added
--- NOTE | 2023-07-21 16:15 | PC.NURSE ---
PORTACATH DEACCESSED. HEPARIN FLUSH PRIOR TO REMOVAL. SITE INTACT
== END 2023-07-21 16:17 | disposition home or self-care (01) ==
PROVIDERS: Emergency Provider Emergency Medicine Emergency Medical Services
DX: E86.0 Dehydration (principal); R53.1 Weakness; I10 Essential (primary) hypertension; I95.1 Orthostatic hypotension; C64.9 Malignant neoplasm of unspecified kidney, except renal pelvis; C18.9 Malignant neoplasm of colon, unspecified; C78.00 Secondary malignant neoplasm of unspecified lung; D64.9 Anemia, unspecified; Z86.711 Personal history of pulmonary embolism; Z93.3 Colostomy status; Z20.822 Contact with and (suspected) exposure to COVID-19; Z20.828 Contact with and (suspected) exposure to other viral communicable diseases; Z92.3 Personal history of irradiation
CPT/HCPCS: 0241U; 36415; 70450; 71045; 80053; 80307; 82550; 83605; 83690; 83880; 84484; 85025; 85610; 87040; 93005; 96360; 96361; 99285; J1642

== ENCOUNTER → 2023-07-21 12:24 | Outpatient (BNV) | payer OTHER, SELFPAY | PROVIDERS: Emergency Provider Emergency Medicine Emergency Medical Services; Visit Provider Internal Medicine | DX: R53.1 Weakness (principal) | CPT/HCPCS: 93010 ==

== ENCOUNTER 2023-07-28 14:26 | Outpatient (REF) | payer OTHER, SELFPAY | END 2023-07-28 14:27 | disposition home or self-care (01) | LOC: HO.HMGCLNP 14:26 | PROVIDERS: Visit Provider Internal Medicine | DX: E87.1 Hypo-osmolality and hyponatremia (principal) | CPT/HCPCS: 80048 ==

== ENCOUNTER 2023-08-03 13:16 | Outpatient (REF) | payer MEDICARE, SELFPAY ==
[2023-08-03 18:53] LABS: Anion Gap 12 (12-20); Blood Urea Nitrogen 15 mg/dL (9-16); Calcium 8.2 mg/dL (8.4-10.2); Carbon Dioxide 22 mmol/L (22-29); Chloride 102 mmol/L (96-108); Estimated Glomerular Filt Rate > 60; Glucose Random 106 mg/dL (60-115); Potassium 3.9 mmol/L (3.3-5.1); Sodium 132 mmol/L (135-145)
== END 2023-08-03 13:17 | disposition home or self-care (01) ==
LOC: HO.HVNA 13:16
PROVIDERS: Visit Provider Internal Medicine
DX: E87.1 Hypo-osmolality and hyponatremia (principal)
CPT/HCPCS: 36415; 80048

== ENCOUNTER 2023-08-09 10:00 | Outpatient (REF) | payer MEDICARE, SELFPAY ==
[2023-08-09 14:17] LABS: Anion Gap 10 (12-20); Blood Urea Nitrogen 20 mg/dL (9-16); Calcium 9.2 mg/dL (8.4-10.2); Carbon Dioxide 22 mmol/L (22-29); Chloride 103 mmol/L (96-108); Estimated Glomerular Filt Rate > 60; Glucose Random 108 mg/dL (60-115); Potassium 4.3 mmol/L (3.3-5.1); Sodium 131 mmol/L (135-145)
== END 2023-08-09 10:01 | disposition home or self-care (01) ==
LOC: HO.HVNA 10:00
PROVIDERS: Visit Provider Internal Medicine
DX: E87.1 Hypo-osmolality and hyponatremia (principal)
CPT/HCPCS: 36415; 80048

== ENCOUNTER 2023-08-16 09:40 | Outpatient (REF) | payer OTHER, SELFPAY | END 2023-08-16 09:41 | disposition home or self-care (01) | LOC: HO.HVNA 09:40 | PROVIDERS: Visit Provider Internal Medicine | DX: Z13.89 Encounter for screening for other disorder (principal) ==

== ENCOUNTER 2023-08-26 12:11 | Outpatient (REF) | payer MEDICARE, SELFPAY ==
[2023-08-26 12:58] LABS: Anion Gap 12 (12-20); Blood Urea Nitrogen 18 mg/dL (9-16); Calcium 8.1 mg/dL (8.4-10.2); Carbon Dioxide 21 mmol/L (22-29); Chloride 105 mmol/L (96-108); Estimated Glomerular Filt Rate > 60; Glucose Random 73 mg/dL (60-115); Potassium 4.4 mmol/L (3.3-5.1); Sodium 134 mmol/L (135-145)
== END 2023-08-26 12:12 | disposition home or self-care (01) ==
LOC: HO.HVNA 12:11
PROVIDERS: Visit Provider Internal Medicine
DX: E87.1 Hypo-osmolality and hyponatremia (principal)
CPT/HCPCS: 36415; 80048

== ENCOUNTER 2023-09-02 13:22 | Outpatient (AMB) | payer OTHER, SELFPAY ==
--- NOTE | 2023-09-02 13:37 | HO.NEPHOV ---
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 He went to multiple doctors appointments and afterward with eating lunch, he stood up and suddenly began feeling dizzy. He denied any chest pain, shortness of breath, nausea. He sat down and began feeling better. He denies any vomiting or diarrhea. He was recently evaluated by Dr. Cisneros his oncologist to has withheld chemotherapy moving forward as he has been doing poorly and has persistent hyponatremia with treatment. He had a recent admission for hyponatremia. 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 Renal cell carcinoma Rectosigmoid cancer Pituitary lesion Fever of unknown origin Mass of pituitary Headache Colostomy in place HTN (hypertension) [place]-vesical fistula Surgical History History of removal of Port-a-Cath H/O hernia repair S/P colon resection Family History Mother Parkinsons disease Father ESRD (end stage renal disease) Other No family history of cancer Social History Household Members: Spouse Household Members Other:: 1 Housing: House Are you a primary respiratory care practitioner to a significant other at home: No Do you presently have visiting nurse or other home services: Yes Alcohol intake: never Patient Tobacco Use Status: Former Tobacco user Quit Date: 30 y.o Tobacco use type: Cigarette Years Smoked: 30 years ago e-Cigarette/Vaping Use: Never Used Second Hand Smoke Exposure: No Advance Directives Date on File: 06/17/23 service: Yes Current occupational status: employed and retired Cognitive needs: No Hearing needs: No Vision needs: No Vital Signs 09/02/23 13:40 Weight 133 lb BP 106/58 L Blood Pressure Location Rt brachial Position Sitting Pulse 106 H Pulse Source Pulse Oximeter Pulse Oximetry (%) 76 L Oxygen Delivery Method Room Air Physical Exam Vital Signs: Last Vital Signs Pulse 106 H 09/02/23 13:40 BP 106/58 L 09/02/23 13:40 Pulse Ox 76 L 09/02/23 13:40 Oxygen Delivery Method Room Air 09/02/23 13:40 Awake. Comfortable. Neck is supple. Mucosa moist. Lungs bilateral scattered rhonchi. Heart S1-S2 heard no gallop. Abdomen soft. Extremities 1+edema. No involuntary movements. No myoclonus. Extrem General: Yes edema Assessment & Plan Assessment & Plan (1) Acute hyponatremia: Code(s): E87.1 - Hypo-osmolality and hyponatremia Plan: Hyponatremia due to decreased free water clearance in the setting of malignancy. Goal is to keep serum sodium 130 millimoles. Encouraged him to restrict free water intake to less than 1 L per 24 hours. He can stay on a regular salt diet. monitor serum sodium every 2 weeks Keep UREA powder 1 pack BID Can be mixed with apple or orange juice Ok to increase Powerade to 12 Oz Coding Level of Care Code Est Pt Level 4 (11479) Diagnoses Acute hyponatremia E87.1 Results Reviewed Nephrology Results: Hgb 10.8 g/dl (14.0-18.0) L 08/16/23 WBC 4.4 X10*3/uL (4.8-10.8) L 08/16/23 Plt Count 217 X10*3/uL (160-400) 08/16/23 Sodium 134 mmol/L (135-145) L 08/26/23 Potassium 4.4 mmol/L (3.3-5.1) 08/26/23 Chloride 105 mmol/L (96-108) 08/26/23 Carbon Dioxide 21 mmol/L (22-29) L 08/26/23 BUN 18 mg/dL (9-16) H 08/26/23 Creatinine 0.60 mg/dL (0.5-1.4) 08/26/23 Calcium 8.1 mg/dL (8.4-10.2) L 08/26/23 Urine Protein Negative mg/dL (Neg-Trace) 05/04/23
[2023-09-02 13:40] VITALS: BP 106/58; PULSE 106; O2SAT 76
== END 2023-09-02 14:03 | disposition home or self-care (01) ==
PROVIDERS: PCP Pediatrics Pediatric Nephrology; Visit Provider Internal Medicine Hypertension Specialist
DX: E87.1 Hypo-osmolality and hyponatremia (principal)
CPT/HCPCS: 99214

== ENCOUNTER → 2023-09-02 13:22 | Outpatient (BNVA) | payer OTHER, MEDICARE, SELFPAY | PROVIDERS: PCP Pediatrics Pediatric Nephrology; Visit Provider Internal Medicine Hypertension Specialist | DX: E87.1 Hypo-osmolality and hyponatremia (principal) | CPT/HCPCS: 99212 ==

== ENCOUNTER 2023-09-06 12:45 | Outpatient (REF) | payer OTHER, SELFPAY ==
[2023-09-06 14:43] LABS: Anion Gap 10 (12-20); Blood Urea Nitrogen 17 mg/dL (9-16); Calcium 8.2 mg/dL (8.4-10.2); Carbon Dioxide 24 mmol/L (22-29); Chloride 101 mmol/L (96-108); Estimated Glomerular Filt Rate > 60; Glucose Random 106 mg/dL (60-115); Potassium 3.7 mmol/L (3.3-5.1); Sodium 131 mmol/L (135-145)
== END 2023-09-06 12:46 | disposition home or self-care (01) ==
LOC: HO.HVNA 12:45
PROVIDERS: Visit Provider Internal Medicine
DX: E87.1 Hypo-osmolality and hyponatremia (principal)
CPT/HCPCS: 36415; 80048

== ENCOUNTER 2023-09-14 09:54 | Outpatient (REF) | payer OTHER, MEDICARE, SELFPAY ==
[2023-09-14 10:41] LABS: Anion Gap 11 (12-20); Blood Urea Nitrogen 18 mg/dL (9-16); Calcium 8.8 mg/dL (8.4-10.2); Carbon Dioxide 25 mmol/L (22-29); Chloride 95 mmol/L (96-108); Estimated Glomerular Filt Rate > 60; Glucose Random 112 mg/dL (60-115); Sodium 127 mmol/L (135-145)
== END 2023-09-14 09:55 | disposition home or self-care (01) ==
LOC: HO.HVNA 09:54
PROVIDERS: Visit Provider Internal Medicine
DX: E87.1 Hypo-osmolality and hyponatremia (principal)
CPT/HCPCS: 36415; 80048

== ENCOUNTER 2023-09-27 14:00 | Outpatient (REF) | payer OTHER, MEDICARE, SELFPAY ==
[2023-09-27 16:07] LABS: Anion Gap 10 (12-20); Blood Urea Nitrogen 16 mg/dL (9-16); Calcium 8.2 mg/dL (8.4-10.2); Carbon Dioxide 23 mmol/L (22-29); Chloride 100 mmol/L (96-108); Estimated Glomerular Filt Rate > 60; Glucose Random 76 mg/dL (60-115); Potassium 4.3 mmol/L (3.3-5.1); Sodium 129 mmol/L (135-145)
== END 2023-09-27 14:01 | disposition home or self-care (01) ==
LOC: HO.HMGCLNP 14:00
PROVIDERS: Visit Provider Internal Medicine
DX: E87.1 Hypo-osmolality and hyponatremia (principal)
CPT/HCPCS: 80048

== ENCOUNTER 2023-09-29 13:02 | Inpatient (IN) | payer OTHER, MEDICARE, SELFPAY ==
--- NOTE | ~2023-09-29 | XR_ITS ---
EXAMINATION: XR CHEST CLINICAL INFORMATION: Cough. COMPARISON: Chest x-ray of July 21, 2023 and PET/CT of July 28, 2022. TECHNIQUE: AP portable view of the chest was obtained. FINDINGS: Right chest port catheter in place with tip at the cavoatrial junction. No pneumothorax or significant pleural effusion appreciated. Ill-defined opacity present within the lower right chest and mid to lower left chest which may be related to atelectasis, pneumonitis, or mass. This is more prominent than on previous study of July 21, 2023. Heart normal size. No evidence of pulmonary edema. Multilevel spurring within the thoracic spine is evident. XR/XR chest 1V IMPRESSION: Development of bilateral lung opacities which may be related to atelectasis, pneumonitis, or lung masses.
--- NOTE | 2023-09-29 13:15 | ED_ITS ---
HPI - General Adult General Chief complaint: General Medical Stated complaint: VOMITING COVID + Time Seen by Provider: 09/29/23 13:08 History of Present Illness HPI narrative: 73 y/o M patient; PMH RCC, colon cancer with lung metastasis, pituitary mass, hx PE on Eliquis, hypothyroidism, HTN, chronic hyponatremia; presents from home with report of nausea/vomiting. The patient states he tested positive on a home COVID test on Wednesday (09/27/2023). He started with a dry non-productive cough since then. Today he was taking his powder sodium medication, when he started coughing. He coughed so much he started vomiting and could not stop so the patient and his called 911. He denies: shortness of breath, chest pain, abdominal pain, fever or chills. He states his appetite has declined this week. Related Data Home Medications Medication Instructions Recorded Confirmed ascorbate calcium (vitamin C) 500 500 mg PO DAILY 10/09/21 09/29/23 mg tablet ferrous sulfate 325 mg (65 mg 325 mg PO DAILY 10/09/21 09/29/23 iron) tablet midodrine 5 mg tablet 5 mg PO BID@0900,1800 07/08/22 09/29/23 sodium chloride 1,000 mg soluble 2,000 mg PO BID 04/27/23 09/29/23 tablet levothyroxine 75 mcg capsule 75 mcg PO DAILY@0630 06/17/23 09/29/23 urea 15 gram oral powder packet 2 packet PO BID 09/16/23 09/29/23 (Ure-Na) olanzapine 2.5 mg tablet 2.5 mg PO BEDTIME 09/29/23 09/29/23 Previous Rx's Medication Instructions Recorded apixaban 5 mg tablet (Eliquis) 5 mg PO BID #60 tabs 04/29/23 Allergies Allergy/AdvReac Type Severity Reaction Status Date / Time No Known Allergies Allergy Verified 09/29/23 13:25 Review of Systems 2 Review of Systems: Yes all other systems are reviewed and are negative Neurologic: Denies Sensory deficit (Neuro) PMFSH Past Medical History Attestation statement: The following information was validated with the patient. 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 Renal cell carcinoma Rectosigmoid cancer Pituitary lesion Fever of unknown origin Mass of pituitary Headache Colostomy in place HTN (hypertension) [place]-vesical fistula Surgical History History of removal of Port-a-Cath H/O hernia repair S/P colon resection Family History Family History Mother Parkinsons disease Father ESRD (end stage renal disease) Other No family history of cancer Social History Social History Household Members: Spouse Household Members Other:: 1 Housing: House Are you a primary critical care specialist to a significant other at home: No Do you presently have visiting nurse or other home services: Yes Alcohol intake: never Patient Tobacco Use Status: Former Tobacco user Quit Date: 30 y.o Tobacco use type: Cigarette Years Smoked: 30 years ago Smoked in Last 30 Days: No e-Cigarette/Vaping Use: Never Used Second Hand Smoke Exposure: No Use of substances other than those prescribed or required for medical reasons: No Advance Directives: No Advance Directives Information Provided: Yes Advance Directives Date on File: 06/17/23 service: Yes Current occupational status: employed and retired Cognitive needs: No Hearing needs: No Vision needs: No Physical Exam ED Vital Signs: Vital Signs - 24 hr 09/29/23 13:24 09/29/23 13:25 09/29/23 16:00 Temperature 968.4 F H 98.6 F 98.1 F Pulse Rate 111 H 108 H 94 Respiratory Rate 18 18 14 Blood Pressure 162/84 H 162/84 H 111/64 Pulse Oximetry 92 93 100 Oxygen Delivery Method Room Air Room Air Room Air 09/29/23 17:34 Temperature Pulse Rate 95 Respiratory Rate 16 Blood Pressure Pulse Oximetry 92 Oxygen Delivery Method Room Air BMI result Body Mass Index 16.9 Patient is afebrile, tachycardic, mildly hypertensive, and 92% on RA. Const Nutritional Appearance: cachectic Orientation/consciousness: patient oriented x3 HENMT Head: Yes atraumatic Eyes Pupils: Equal, round and reactive pupils present EOM: EOMs intact bilaterally Neck Neck: Yes full ROM, Yes supple and No tender Chest Chest palpation & inspection: normal inspection of the chest and normal palpation of entire chest wall Resp Effort & Inspection: normal respiratory effort, able to speak in complete sentences, no audible wheezes, Actively coughing and no respiratory distress Auscultation: clear to auscultation bilaterally Cardio Rate: tachycardic Rhythm: regular rhythm Peripheral pulses: Peripheral pulses 2+ throughout GI Other: Colostomy bag in place, c/d/i surrounding skin. Small amount of dark brown stool present. Inspection: No distended Palpation (GI): Soft to palpation, not firm, nontender, no guarding and not rigid Auscultation: normal bowel sounds Neuro General: patient oriented x3 Cranial nerves: Yes Equal, round and reactive pupils present Cognition (Neuro): normal cognition Motor exam (neuro): 5/5 motor strength present throughout Sensory Exam: No Sensory deficit (Neuro) Course Course Course Narrative: Patient is afebrile, tachycardia, 92% on RA. Will obtain EKG, CXR, and laboratory studies. Will provide 1L IVF and Zofran 4mg IV. Labs reviewed. Mild leukocytosis 11.5. Not meeting SIRS criteria at this time with only tachycardia. Does become hypoxic to mid-80s with minimal exertion, at rest without hypoxia on RA. Reevaluation(s) Reevaluation #1: Called by lab to report 10% bands on CBC. Immediately added blood cultures x2, lactic acid, and antibiotic coverage (Ceftriaxone and Doxycycline) with source presumed pneumonia. Provided Decadron 6mg IV for hypoxia in the setting of known COVID hypoxia. Performed ambulatory trial - patient with hypoxia to 92% on RA with exertion from bed to chair (patient's baseline at home). Plan: Admit to hospitalist for bandemia, COVID pneumonia, failure to thrive. Time: 15:10 Medications Administered Discontinued Medications Generic Name Dose Route Start Last Admin Trade Name Freq PRN Reason Stop Dose Admin Dexamethasone 6 mg 09/29/23 15:56 09/29/23 17:31 Dexamethasone 6 Mg Tablet PO 09/29/23 15:57 6 mg ONCE ONE Administration Sodium Chloride 1,000 mls @ 999 mls/hr 09/29/23 13:45 09/29/23 16:00 Ns IV 09/29/23 14:45 Infused .Q1H1M DMITRY Infusion Ceftriaxone Sodium 1 gm/ 50 mls @ 100 mls/hr 09/29/23 15:09 09/29/23 17:31 Sodium Chloride IV 09/29/23 15:38 100 mls/hr ONCE ONE Administration Ondansetron HCl 4 mg 09/29/23 13:36 09/29/23 14:24 Ondansetron Hcl 4 Mg/2 Ml Vial IVPUSH 09/29/23 13:37 4 mg ONCE ONE Administration Medical Decision Making Lab Data 09/29/23 14:18 09/29/23 14:18 Labs: Lab Results 09/29/23 09/29/23 09/29/23 Range/Units 14:16 14:18 14:25 WBC 11.5 H (4.8-10.8) X10*3/uL RBC 4.01 L (4.60-5.80) X10*6/uL Hgb 11.9 L (14.0-18.0) g/dl Hct 35.4 L (42.0-52.0) % MCV 88.3 (80.0-98.0) fL MCH 29.7 (27.0-33.0) pg MCHC 33.6 (31.0-36.0) g/dl RDW 15.5 (11.0-16.0) % Plt Count 187 (160-400) X10*3/uL MPV 9.3 L (9.4-12.4) fL Immature Gran % (Auto) Cancelled Neut % (Auto) Cancelled Lymph % (Auto) Cancelled [place] % (Auto) Cancelled Eos % (Auto) Cancelled Baso % (Auto) Cancelled Lymph # (Auto) Cancelled [place] # (Auto) Cancelled Eos # (Auto) Cancelled Baso # (Auto) Cancelled Abs Immat Gran (auto) Cancelled Absolute Neuts (auto) Cancelled Absolute Nucleated RBC 0.000 (0.0-0.012) X10*3/uL Nucleated RBC % (auto) 0.0 (0.0-0.2) /100WBC Neutrophils % (Manual) 88 H (45-73) % Band Neutrophils % 10 H (3-5) % Lymphocytes % (Manual) 2 L (20-40) % Abs Neuts (Manual) 11.3 H (2.0-8.3) X10*3/uL Lymphocytes # (Manual) 0.2 L (1.2-4.9) X10*3/uL Platelet Estimate NORMAL (NORMAL) Plt Morphology Comment NORMAL RBC Morphology NOTED Acanthocytes (Spur) 3+ (>5) /OIF Smear Tech's Comments MANUAL DIFF VBG pH 7.42 (7.32-7.43) VBG pCO2 34 mmHg VBG pO2 53 mmHg VBG HCO3 22 (22-26) mmol/L VBG O2 Saturation 82.0 % VBG Base Excess -0.9 mmol/L Sodium 134 L (135-145) mmol/L Potassium 4.0 (3.3-5.1) mmol/L Chloride 104 (96-108) mmol/L Carbon Dioxide 25 (22-29) mmol/L Anion Gap 9 L (12-20) BUN 28 H (9-16) mg/dL Creatinine 0.61 (0.5-1.4) mg/dL Estim Creat Clear Calc 91.2 Estimated GFR > 60 Random Glucose 114 (60-115) mg/dL Calcium 8.8 D (8.4-10.2) mg/dL Total Bilirubin 0.5 (0.0-1.0) mg/dL Direct Bilirubin 0.2 (0.0-0.5) mg/dL AST 45 H (5-37) U/L ALT 19 (0-40) U/L Alkaline Phosphatase 131 H (39-117) U/L Troponin I High Sens 3.9 (<3.5-35.0) ng/L Total Protein 5.4 L (6.5-8.0) g/dL Albumin 2.7 L (3.5-5.0) g/dL Lipase 15 (8-78) U/L Influenza Type A (PCR) NEGATIVE (Negative) Influenza Type B (PCR) NEGATIVE (Negative) RSV RNA Qual (PCR) NEGATIVE (Negative) SARS-CoV-2 RNA (RT-PCR) POSITIVE A (Negative) Radiology Impression Discussion of test interpretation with radiology: I have reviewed the radiologist's reading. Radiologist Impression: EXAMINATION: XR CHEST CLINICAL INFORMATION: Cough. COMPARISON: Chest x-ray of July 21, 2023 and PET/CT of July 28, 2022. TECHNIQUE: AP portable view of the chest was obtained. FINDINGS: Right chest port catheter in place with tip at the cavoatrial junction. No pneumothorax or significant pleural effusion appreciated. Ill-defined opacity present within the lower right chest and mid to lower left chest which may be related to atelectasis, pneumonitis, or mass. This is more prominent than on previous study of July 21, 2023. Heart normal size. No evidence of pulmonary edema. Multilevel spurring within the thoracic spine is evident. XR/XR chest 1V IMPRESSION: Development of bilateral lung opacities which may be related to atelectasis, pneumonitis, or lung masses. Discharge Plan Discharge Clinical Impression: COVID-19, Multifocal pneumonia, Bandemia, Adult failure to thrive Patient Disposition: Admitted As Inpatient
[2023-09-29 13:24] VITALS: BP 162/84; PULSE 111; RESP 18; TEMP 520.2; TEMP 968.4; O2SAT 92
[2023-09-29 13:25] VITALS: BP 162/84; PULSE 108; RESP 18; TEMP 37; O2SAT 86; O2SAT 93; BMI 16.9
--- NOTE | 2023-09-29 13:34 | ECG_ITS ---
Test Reason : COUGH Blood Pressure : / mmHG Vent. Rate : 103 BPM Atrial Rate : 000 BPM P-R Int : 000 ms QRS Dur : 078 ms QT Int : 512 ms P-R-T Axes : 000 087 088 degrees QTc Int : 670 ms Sinus tachycardia Cannot rule out Anterior infarct , age undetermined Abnormal ECG When compared with ECG of 21-JUL-2023 12:51, Minimal criteria for Anterior infarct are now Present QT has lengthened Referred By: Chinyere Crespo Electronically Signed By:Antonino Flynn
[2023-09-29] MEDS: 0.9 % Sodium Chloride 1,000 ML 999 ML IV ×2 (14:21→18:20)
[2023-09-29] MEDS: ondansetron HCL 4 MG/2 ML VIAL IVPUSH (14:24)
[2023-09-29 14:27] LABS: Hematocrit 35.4 % (42.0-52.0); Hemoglobin 11.9 g/dl (14.0-18.0); Mean Corpuscular HGB Conc 33.6 g/dl (31.0-36.0); Mean Corpuscular Hemoglobin 29.7 pg (27.0-33.0); Mean Corpuscular Volume 88.3 fL (80.0-98.0); Mean Platelet Volume 9.3 fL (9.4-12.4); Platelet Count 187 X10*3/uL (160-400); Red Blood Count 4.01 X10*6/uL (4.60-5.80); Red Cell Distribution Width 15.5 % (11.0-16.0); White Blood Count 11.5 X10*3/uL (4.8-10.8)
--- NOTE | 2023-09-29 14:28 | PC.NURSE ---
pt a&ox3, pt colostomy appliance had fallen off, pt incontinent of large amount of stool, pt had supplies with him, this nurse changed the appliance, bed change also performed as pt was incontinent of urine. pt has rt chest port which was accessed, labs drawn, nasal swab performed, cardiac specialist applied- sinus tach on the monitor. radiology to perform xray, ekg to be performed by tech, ivf hung per order, pt medicated for nausea, pt denies pain/discomfort at this time, call villatoro within reach, will continue to monitor.
[2023-09-29 14:31] LABS: Venous Blood Gas Refer to POC result
[2023-09-29 14:43] LABS: VBG Base Excess -0.9 mmol/L; VBG HCO3 22 mmol/L (22-26); VBG pCO2 34 mmHg; VBG pH 7.42 (7.32-7.43); VBG pO2 53 mmHg
[2023-09-29 14:50] LABS: Alanine Aminotransferase 19 U/L (0-40); Albumin Level 2.7 g/dL (3.5-5.0); Alkaline Phosphatase 131 U/L (39-117); Anion Gap 9 (12-20); Aspartate Amino Transferase 45 U/L (5-37); Bilirubin Direct 0.2 mg/dL (0.0-0.5); Bilirubin Total 0.5 mg/dL (0.0-1.0); Blood Urea Nitrogen 28 mg/dL (9-16); Calcium 8.8 mg/dL (8.4-10.2); Carbon Dioxide 25 mmol/L (22-29); Chloride 104 mmol/L (96-108); Creatinine Clr Calc Pharmacy 91.2; Estimated Glomerular Filt Rate > 60; Glucose Random 114 mg/dL (60-115); Lipase 15 U/L (8-78); Sodium 134 mmol/L (135-145); Total Protein 5.4 g/dL (6.5-8.0)
[2023-09-29 14:58] LABS: Troponin-I High Sensitivity 3.9 ng/L (<3.5-35.0)
[2023-09-29 15:02] LABS: SLIDE REVIEW MANUAL DIFF
[2023-09-29 15:06] LABS: Neutrophils Percent Manual 88 % (45-73)
[2023-09-29 15:08] LABS: Band Neutrophils Percent 10 % (3-5); Lymphocytes Absolute Manual 0.2 X10*3/uL (1.2-4.9); Lymphocytes Percent Manual 2 % (20-40); Neutrophils Absolute Manual 11.3 X10*3/uL (2.0-8.3)
[2023-09-29 15:09] LABS: Acanthocytes 3+ (>5) /OIF; Platelet Estimate NORMAL (NORMAL); Platelet Morphology Comment NORMAL; RBC Morphology NOTED
[2023-09-29 15:16] LABS: Influenza A PCR NEGATIVE (Negative); Influenza B PCR NEGATIVE (Negative); Resp Syncy Virus RNA Qual PCR NEGATIVE (Negative); SARS COV2 PCR INHOUSE POSITIVE (Negative)
[2023-09-29 16:00] VITALS: BP 111/64; PULSE 94; RESP 14; TEMP 36.7; O2SAT 100
--- NOTE | 2023-09-29 16:35 | PHA.MEDREC ---
Pharmacy Consult ? Medication Reconciliation Pharmacy has completed the medication reconciliation. Patient's confirmed medications. Report Urea was just increase to 2 packets bid last week. Jacinda Magaña, PharmD
--- NOTE | 2023-09-29 16:38 | MHC.EDTECH ---
Patient is a hard stick and unable to get labs. Steven Aceves nanotechnology technician will try to get labs for this nanotechnology technician. VITO white.
[2023-09-29] MEDS: cefTRIAXone sodium 1 GM in 0.9 % Sodium Chloride 50 ML IV (17:31)
[2023-09-29] MEDS: dexAMETHasone 6 MG TABLET PO (17:31)
--- NOTE | 2023-09-29 17:32 | PC.NURSE ---
delay in hanging meds there was a delay in hanging abx because patient is a difficult stick and was difficult to get second set of blood cultures.
[2023-09-29 17:34] VITALS: PULSE 95; RESP 16; O2SAT 92
[2023-09-29 17:46] LABS: Lactic Acid 2.6 mmol/L (0.5-2.0)
--- NOTE | 2023-09-29 17:57 | PM.IMHP ---
History of Present Illness Date of Service: 09/29/23 Chief Complaint: Coughing episode followed by vomiting Very pleasant 72-year-old gentleman with past medical history of renal cell carcinoma and metastatic rectosigmoid adeno carcinoma: With pulmonary and pituitary Mets, history of PE on Eliquis, hypothyroidism, hypertension, chronic hyponatremia on salt tablets and urea, follows by Dr. Cisneros, chemotherapy has been withheld for now last chemotherapy was in May of 2023, patient diagnosed to have COVID infection on September 26, since then was having generalized weakness, decreased appetite, and today after he took his sodium powder medication he started coughing followed by multiple episodes of vomiting therefore call 911 and patient was brought in to [place] emergency room where he was noted to be hypoxic with finger oximetry 86% documented in triage note by EMS, as per patient he feels generally fatigued, has decreased appetite, complain of intermittent cough, denies fever, no chills, denies headache, no lightheadedness, denies sick contacts, requiring assistance with out of bed to chair , able to ambulate from bed to bathroom get fatigued with minimal exertion, chest x-ray showed bilateral lung opacities could be related to atelectasis, pneumonitis or lung masses, WBC 11.5 with 10% bands, sodium 134, BUN 28 creatinine of 0.61 lactic acid 2.6, patient received IV fluids and IV antibiotics in the emergency room and now being admitted for failure to thrive, COVID-19 infection and hypoxia. Review of Systems Review of Systems: General no headache ,no dizziness, no fever chills. CVS no chest pain, no palpitation. Respiratory dry cough. 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 Renal cell carcinoma Rectosigmoid cancer Pituitary lesion Fever of unknown origin Mass of pituitary Headache Colostomy in place HTN (hypertension) Bern-vesical fistula Family History Mother Parkinsons disease Father ESRD (end stage renal disease) Other No family history of cancer Surgical History History of removal of Port-a-Cath H/O hernia repair S/P colon resection Social History Household Members: Spouse Household Members Other:: with Housing: House Are you a primary home health care social worker to a significant other at home: No Do you presently have visiting nurse or other home services: Yes Alcohol intake: never Patient Tobacco Use Status: Former Tobacco user Quit Date: 30 y.o Tobacco use type: Cigarette Years Smoked: 30 years ago Smoked in Last 30 Days: No e-Cigarette/Vaping Use: Never Used Second Hand Smoke Exposure: No Use of substances other than those prescribed or required for medical reasons: No Currently Displaying Signs/Symptoms of Drug Intoxication Withdrawal: No Have you been hit, kicked, punched, or otherwise hurt by someone within the past year? If so, by whom?: No Do you feel safe in your current relationship?: Yes Is there a partner from a previous relationship who is making you feel unsafe now?: No Are you made to feel afraid or neglected: No Advance Directives: No Advance Directives Information Provided: Yes Advance Directives Date on File: 06/17/23 Do you have thoughts of harming others: None Do you have a plan to hurt others: No Plan Recently lost weight without trying: No Eating poorly because of decreased appetite: No Nutrition Risks: Poor intake 0-25% >4 days Poor oral hygiene: No service: Yes Current occupational status: employed and retired Cognitive needs: No Hearing needs: No Vision needs: No Meds Allergies Allergy/AdvReac Type Severity Reaction Status Date / Time No Known Allergies Allergy Verified 09/29/23 13:25 Active Medications: Current Medications Acetaminophen (Acetaminophen 325 Mg Tablet) 650 mg PO Q6H PRN PRN Reason: Pain, Mild (Pain Scale 1-3) Al Hydroxide/Mg Hydroxide (Magnesium Hydrox/Alum Hydrox 30 Ml Oral.Susp) 30 ml PO Q4H PRN PRN Reason: Heartburn/Nausea Apixaban (Apixaban 5 Mg Tablet) 5 mg PO BID DMIT[facility] Ascorbic Acid (Ascorbic Acid 500 Mg Tablet) 500 mg PO DAILY [facility] Benzonatate (Benzonatate 100 Mg Capsule) 100 mg PO TID PRN PRN Reason: Cough Ferrous Sulfate (Ferrous Sulfate 324 Mg Tablet.Dr) 324 mg PO DAILY DMIT[facility] Sodium Chloride (Ns) 1,000 mls @ 999 mls/hr IV .Q1H1M DMITRY Stop: 09/29/23 19:00 Levothyroxine Sodium (Levothyroxine Sodium 75 Mcg Tablet) 75 mcg PO DAILY@0600 [facility] Melatonin (Melatonin 3 Mg Tablet) 3 mg PO BEDTIME PRN PRN Reason: Insomnia Midodrine (Midodrine Hcl 5 Mg Tablet) 5 mg PO BID@0900,1800 [facility] Olanzapine (Olanzapine 2.5 Mg Tablet) 2.5 mg PO BEDTIME [facility] Ondansetron HCl (Ondansetron Hcl 4 Mg/2 Ml Vial) 4 mg IVPUSH Q8H PRN PRN Reason: Nausea and Vomiting Sodium Chloride (Sodium Chloride Tab 1 Gm Tablet) 2 gm PO BID [facility] Sodium Chloride (0.9 % Sodium Chloride Flush 3 Ml Syringe) 3 ml IVFLUSH QSHIFT [facility] Urea (Urea 15 Gm Powder) 30 gm PO BID [facility] Home Medications Medication Instructions Recorded Confirmed Last Taken Type ascorbate calcium (vitamin C) 500 500 mg PO DAILY 10/09/21 09/29/23 09/29/23 History mg tablet ferrous sulfate 325 mg (65 mg 325 mg PO DAILY 10/09/21 09/29/23 09/29/23 History iron) tablet midodrine 5 mg tablet 5 mg PO BID@0900,1800 07/08/22 09/29/23 09/29/23 History sodium chloride 1,000 mg soluble 2,000 mg PO BID 04/27/23 09/29/23 09/29/23 History tablet levothyroxine 75 mcg capsule 75 mcg PO DAILY@0630 06/17/23 09/29/23 09/29/23 History urea 15 gram oral powder packet 2 packet PO BID 09/16/23 09/29/23 09/29/23 History (Ure-Na) olanzapine 2.5 mg tablet 2.5 mg PO BEDTIME 09/29/23 09/29/23 09/28/23 History Physical Exam Vital Signs and Narrative: Vital Signs: Last Vital Signs Temp 98.1 F 09/29/23 16:00 Pulse 95 09/29/23 17:34 Resp 16 09/29/23 17:34 BP 111/64 09/29/23 16:00 Pulse Ox 92 09/29/23 17:34 O2 Del Method Room Air 09/29/23 17:34 BMI result Body Mass Index 16.9 Const: Other: Constitutional :?frail appearing, awake alert x3, in no distress HEENT PERRLA, anicteric sclerae Neck : Normal inspection,? no JVD Cardiovascular : RRR, Respiratory :? clear to auscultate? no crackles, wheezes or rhonchi Gastrointestinal:? soft, Normal bowel sounds, Non tender, ostomy in place with small dark brown pasty stool Skin : Warm, Dry no pallor Extremities no edema Neurological : Alert & oriented x3, No focal deficit , CN 2-12 within normal psych appropriate affect Results Labs 09/29/23 14:18 09/29/23 14:18 Labs: Laboratory Results - last 24 hr 09/29/23 09/29/23 09/29/23 14:16 14:18 14:25 MCV 88.3 MCH 29.7 MCHC 33.6 RDW 15.5 Plt Count 187 MPV 9.3 L Immature Gran % (Auto) Cancelled Neut % (Auto) Cancelled Lymph % (Auto) Cancelled Tw[place]gs % (Auto) Cancelled Eos % (Auto) Cancelled Baso % (Auto) Cancelled Lymph # (Auto) Cancelled [place]gs # (Auto) Cancelled Eos # (Auto) Cancelled Baso # (Auto) Cancelled Abs Immat Gran (auto) Cancelled Absolute Neuts (auto) Cancelled Absolute Nucleated RBC 0.000 Nucleated RBC % (auto) 0.0 Neutrophils % (Manual) 88 H Band Neutrophils % 10 H Lymphocytes % (Manual) 2 L Abs Neuts (Manual) 11.3 H Lymphocytes # (Manual) 0.2 L Platelet Estimate NORMAL Plt Morphology Comment NORMAL RBC Morphology NOTED Acanthocytes (Spur) 3+ (>5) Smear Tech's Comments MANUAL DIFF VBG pH 7.42 VBG pCO2 34 VBG pO2 53 VBG HCO3 22 VBG O2 Saturation 82.0 VBG Base Excess -0.9 Anion Gap 9 L Estim Creat Clear Calc 91.2 Estimated GFR > 60 Random Glucose 114 Lactic Acid Calcium 8.8 D Total Bilirubin 0.5 Direct Bilirubin 0.2 AST 45 H ALT 19 Alkaline Phosphatase 131 H Troponin I High Sens 3.9 Total Protein 5.4 L Albumin 2.7 L Lipase 15 Influenza Type A (PCR) NEGATIVE Influenza Type B (PCR) NEGATIVE RSV RNA Qual (PCR) NEGATIVE SARS-CoV-2 RNA (RT-PCR) POSITIVE A 09/29/23 17:15 MCV MCH MCHC RDW Plt Count MPV Immature Gran % (Auto) Neut % (Auto) Lymph % (Auto) Twiggs % (Auto) Eos % (Auto) Baso % (Auto) Lymph # (Auto) Twiggs # (Auto) Eos # (Auto) Baso # (Auto) Abs Immat Gran (auto) Absolute Neuts (auto) Absolute Nucleated RBC Nucleated RBC % (auto) Neutrophils % (Manual) Band Neutrophils % Lymphocytes % (Manual) Abs Neuts (Manual) Lymphocytes # (Manual) Platelet Estimate Plt Morphology Comment RBC Morphology Acanthocytes (Spur) Smear Tech's Comments VBG pH VBG pCO2 VBG pO2 VBG HCO3 VBG O2 Saturation VBG Base Excess Anion Gap Estim Creat Clear Calc Estimated GFR Random Glucose Lactic Acid 2.6 H* Calcium Total Bilirubin Direct Bilirubin AST ALT Alkaline Phosphatase Troponin I High Sens Total Protein Albumin Lipase Influenza Type A (PCR) Influenza Type B (PCR) RSV RNA Qual (PCR) SARS-CoV-2 RNA (RT-PCR) Imaging Radiologist's Impressions: Impressions Chest X-Ray 09/29/23 14:36 IMPRESSION: Development of bilateral lung opacities which may be related to atelectasis, pneumonitis, or lung masses. Assessment and Plan (1) Hyponatremia: Status: Acute (2) Adult failure to thrive: Status: Acute (3) COVID-19: Status: Acute Plan 73-year-old gentleman with past medical history of renal cancer, colon cancer status post colon resection and ostomy presented to [facility] due to generalized weakness poor by mouth intake coughing and vomiting with recently diagnosed COVID-19 infection Acute hypoxia likely due to COVID-19 Resolved, continue to monitor oxygenation if noted to have drop in oxygen will place on IV steroids and IV remdesivir Supportive care with cough medication, incentive spirometry, vitamin-C Hold antibiotics, chest x-ray findings likely related to COVID infection Acute lactic acidosis likely due to dehydration, no evidence of sepsis, treat with IV fluids follow labs. Moderate protein calorie malnutrition Likely due to poor by mouth intake worsened with COVID infection placed on supplements Failure to thrive Due to underlying cancer and COVID infection Chronic hyponatremia stable continue urea and sodium chloride tablets History of pulmonary embolism continue Eliquis History of orthostatic hypotension Asymptomatic continue midodrine History of adeno carcinoma of rectosigmoid with metastatic lung lesion status post sigmoid resection with colostomy placement Currently not receiving chemotherapy, recommend outpatient follow-up with Dr. Cisneros Code status full code DVT prophylaxis with Eliquis In my clinical judgment patient need to night inpatient hospitalization for close monitoring of hypoxia, failure to thrive requiring nutrition support, physical therapy Quality Stroke Does the patient have a stroke diagnosis?: No VTE Prior VTE?: No VTE Risk Level:: Medical - moderate - high VTE Device Contraindication: Treatment Not Indicated VTE Drug Contraindication: N/A - Med Ordered
[2023-09-29] MEDS: Midodrine HCl 5 MG TABLET PO (18:19)
[2023-09-29] MEDS: Doxycycline Hyclate 100 MG in 0.9 % Sodium Chloride 250 ML 166.67 MG IV (18:19)
--- NOTE | 2023-09-29 18:27 | PC.NURSE ---
patient a&ox3, pt medicated per per order.
[2023-09-29 18:52] VITALS: BP 107/55; PULSE 91; RESP 13; TEMP 36.7; O2SAT 97
[2023-09-29 19:20] LABS: Reflex Lactate? Lactic Acid Added
[2023-09-29 20:21] VITALS: BP 104/58; PULSE 83; RESP 14; TEMP 36.8; O2SAT 98
[2023-09-29] MEDS: OLANZapine 2.5 MG TABLET PO (20:23)
[2023-09-29] MEDS: Apixaban 5 MG TABLET PO (20:23)
[2023-09-29] MEDS: Urea 15 GM POWDER 30 GM PO (20:23)
[2023-09-29] MEDS: Sodium Chloride Tab 1 GM TABLET 2 GM PO (20:23)
[2023-09-29 20:52] LABS: ~Lactic Acid-LAB USE ONLY 0.9 mmol/L (0.5-2.0)
[2023-09-29] MEDS: guaiFENesin DM 200/20/10 ML 10 ML SYRUP PO (21:42)
--- NOTE | 2023-09-29 22:00 | PC.NURSE ---
This handbook writer assumed care of this Pt at 1900. Pt A&Ox3, [place], denies pain, reports vomiting and SOB. Pt has been on RA, SpO2 maintaining >95% on RA. Pt has colostomy to LLQ, draining dark green stool. Pt has own colostomy supplies at bedside. Pt has access to right chest port. Pt uses urinal.
[2023-09-30] MEDS: 0.9 % Sodium Chloride Flush 3 ML SYRINGE IVFLUSH ×2 (00:32→08:57)
[2023-09-30 02:52] VITALS: BP 110/66; PULSE 64; RESP 12; TEMP 36.9; O2SAT 98
--- NOTE | 2023-09-30 03:30 | PC.NURSE ---
Pt appears to be sleeping, equal, non labored respirations, no apparent distress. Plan of care on going.
[2023-09-30] MEDS: Levothyroxine Sodium 75 MCG TABLET PO (06:16)
[2023-09-30 06:22] VITALS: BP 171/93; PULSE 72; RESP 14; O2SAT 99
[2023-09-30 07:42] VITALS: BP 170/81; PULSE 77; RESP 14; TEMP 36.7; O2SAT 95
[2023-09-30 08:00] VITALS: BP 156/77; PULSE 76; RESP 17; TEMP 36.4; O2SAT 97
[2023-09-30 08:53] VITALS: BMI 17.2
[2023-09-30] MEDS: Sodium Chloride Tab 1 GM TABLET 2 GM PO (08:55)
[2023-09-30] MEDS: Ferrous Sulfate 324 MG TABLET.DR PO (08:56)
[2023-09-30] MEDS: Urea 15 GM POWDER 30 GM PO (08:56)
[2023-09-30] MEDS: Ascorbic Acid 500 MG TABLET PO (08:56)
[2023-09-30] MEDS: guaiFENesin DM 200/20/10 ML 10 ML SYRUP PO (08:56)
[2023-09-30] MEDS: Apixaban 5 MG TABLET PO (08:56)
--- NOTE | 2023-09-30 09:26 | PM.CNNEP ---
History of Present Illness Reason for Consult Consult date: 09/30/23 Reason for consult: Hyponatremia Chief Complaint Chief complaint: failure to thrive/ COVID 19/ acute hypoxia History of Present Illness Narrative: 72-year-old man with past medical history of renal cell carcinoma and metastatic rectosigmoid adeno carcinoma: With pulmonary and pituitary Mets, history of PE on Eliquis, hypothyroidism, hypertension, chronic hyponatremia on salt tablets and urea, follows by Dr. Cisneros, chemotherapy has been withheld for now last chemotherapy was in May of 2023, patient diagnosed to have COVID infection on September 26, since then was having generalized weakness, decreased appetite, and today after he took his sodium powder medication he started coughing followed by multiple episodes of vomiting therefore call 911 Review of Systems Constitutional: Denies fever(s) and Denies weight loss Cardiovascular: Denies chest pain Respiratory: Denies cough and Denies hemoptysis Gastrointestinal: Denies abdominal pain, Denies diarrhea and Denies nausea Musculoskeletal: Denies back pain Denies focal weakness PMFSH Past Medical History Medical History (Updated 09/30/23 @ 09:28 by Ankush Low MD) Hyponatremia Pulmonary embolism Orthostatic hypotension Chronic orthostatic hypotension Hypothyroidism Chronic hyponatremia 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 Renal cell carcinoma Rectosigmoid cancer Pituitary lesion Fever of unknown origin Mass of pituitary Headache Colostomy in place HTN (hypertension) [place]-vesical fistula Family History Family History Mother Parkinsons disease Father ESRD (end stage renal disease) Other No family history of cancer Surgical History Surgical History History of removal of Port-a-Cath H/O hernia repair S/P colon resection Social History Social History Household Members: Spouse Household Members Other:: with Housing: House Are you a primary patient care to a significant other at home: No Do you presently have visiting nurse or other home services: Yes Alcohol intake: never Patient Tobacco Use Status: Former Tobacco user Quit Date: 30 y.o Tobacco use type: Cigarette Years Smoked: 30 years ago Smoked in Last 30 Days: No e-Cigarette/Vaping Use: Never Used Second Hand Smoke Exposure: No Use of substances other than those prescribed or required for medical reasons: No Currently Displaying Signs/Symptoms of Drug Intoxication Withdrawal: No Have you been hit, kicked, punched, or otherwise hurt by someone within the past year? If so, by whom?: No Do you feel safe in your current relationship?: Yes Is there a partner from a previous relationship who is making you feel unsafe now?: No Are you made to feel afraid or neglected: No Advance Directives: No Advance Directives Information Provided: Yes Advance Directives Date on File: 06/17/23 Do you have thoughts of harming others: None Do you have a plan to hurt others: No Plan Recently lost weight without trying: No Eating poorly because of decreased appetite: No Nutrition Risks: Poor intake 0-25% >4 days Poor oral hygiene: No service: Yes Current occupational status: employed and retired Cognitive needs: No Hearing needs: No Vision needs: No Meds Allergies Allergy/AdvReac Type Severity Reaction Status Date / Time No Known Allergies Allergy Verified 09/29/23 13:25 Active Medications: Current Medications Acetaminophen (Acetaminophen 325 Mg Tablet) 650 mg PO Q6H PRN PRN Reason: Pain, Mild (Pain Scale 1-3) Al Hydroxide/Mg Hydroxide (Magnesium Hydrox/Alum Hydrox 30 Ml Oral.Susp) 30 ml PO Q4H PRN PRN Reason: Heartburn/Nausea Apixaban (Apixaban 5 Mg Tablet) 5 mg PO BID [facility] Last Admin: 09/30/23 08:56 Dose: 5 mg Ascorbic Acid (Ascorbic Acid 500 Mg Tablet) 500 mg PO DAILY [facility] Last Admin: 09/30/23 08:56 Dose: 500 mg Benzonatate (Benzonatate 100 Mg Capsule) 100 mg PO TID PRN PRN Reason: Cough Ferrous Sulfate (Ferrous Sulfate 324 Mg Tablet.Dr) 324 mg PO DAILY [facility] Last Admin: 09/30/23 08:56 Dose: 324 mg Guaifenesin/Dextromethorphan (Guaifenesin Dm 200/20/10 Ml 10 Ml Syrup) 10 ml PO TID [facility] Last Admin: 09/30/23 08:56 Dose: 10 ml Levothyroxine Sodium (Levothyroxine Sodium 75 Mcg Tablet) 75 mcg PO DAILY@0600 [facility] Last Admin: 09/30/23 06:16 Dose: 75 mcg Melatonin (Melatonin 3 Mg Tablet) 3 mg PO BEDTIME PRN PRN Reason: Insomnia Midodrine (Midodrine Hcl 5 Mg Tablet) 5 mg PO BID@0900,1800 [facility] Last Admin: 09/30/23 08:55 Dose: Not Given Olanzapine (Olanzapine 2.5 Mg Tablet) 2.5 mg PO BEDTIME [facility] Last Admin: 09/29/23 20:23 Dose: 2.5 mg Ondansetron HCl (Ondansetron Hcl 4 Mg/2 Ml Vial) 4 mg IVPUSH Q8H PRN PRN Reason: Nausea and Vomiting Sodium Chloride (Sodium Chloride Tab 1 Gm Tablet) 2 gm PO BID [facility] Last Admin: 09/30/23 08:55 Dose: 2 gm Sodium Chloride (0.9 % Sodium Chloride Flush 3 Ml Syringe) 3 ml IVFLUSH QSHIFT [facility] Last Admin: 09/30/23 08:57 Dose: 3 ml Urea (Urea 15 Gm Powder) 30 gm PO BID [facility] Last Admin: 09/30/23 08:56 Dose: 30 gm Home Medications Medication Instructions Recorded Confirmed Last Taken Type ascorbate calcium (vitamin C) 500 500 mg PO DAILY 10/09/21 09/29/23 09/29/23 History mg tablet ferrous sulfate 325 mg (65 mg 325 mg PO DAILY 10/09/21 09/29/23 09/29/23 History iron) tablet midodrine 5 mg tablet 5 mg PO BID@0900,1800 07/08/22 09/29/23 09/29/23 History sodium chloride 1,000 mg soluble 2,000 mg PO BID 04/27/23 09/29/23 09/29/23 History tablet levothyroxine 75 mcg capsule 75 mcg PO DAILY@0630 06/17/23 09/29/23 09/29/23 History urea 15 gram oral powder packet 2 packet PO BID 09/16/23 09/29/23 09/29/23 History (Ure-Na) olanzapine 2.5 mg tablet 2.5 mg PO BEDTIME 09/29/23 09/29/23 09/28/23 History Physical Exam Vital Signs: Last Vital Signs Temp 97.5 F 09/30/23 08:00 Pulse 76 09/30/23 08:00 Resp 17 09/30/23 08:00 BP 156/77 H 09/30/23 08:00 Pulse Ox 97 09/30/23 08:00 O2 Del Method Room Air 09/30/23 08:00 BMI result Body Mass Index 17.2 Awake. Comfortable. Neck is supple. Mucosa moist. Lungs bilateral scattered rhonchi. Heart S1-S2 heard no gallop. Abdomen soft. Extremities no edema. No involuntary movements. No myoclonus. Results Lab Results 09/29/23 14:18 09/29/23 14:18 Lab results: Chemistry 09/29/23 14:18 Sodium 134 L Potassium 4.0 Carbon Dioxide 25 BUN 28 H Creatinine 0.61 Calcium 8.8 D Hematology 09/29/23 14:18 WBC 11.5 H Hgb 11.9 L Plt Count 187 Assessment and Plan (1) Hyponatremia: Status: Acute Plan 73-year-old man with chronic hyponatremia well known to me. At present renal function stable at baseline. Restrict p.o. free water intake. Continue urea powder. And sodium chloride tablets at the current dose Renal function close to baseline. Discharge planning and will follow-up as outpatient. Procedures Date of Service Date of Service: 09/30/23
--- NOTE | 2023-09-30 09:48 | MHC.CM.PN ---
Pt. lives with his , he has home health services from [facility] of Nursing and PT, and home health aid services arranged by the [facility] for 5 hours a week. For medical equipment he has BP machine and pulse oximeter. He sees a PCP at [facility]: Dr. Pradhan. His will transport home upon DC. HCP is on file, and confirmed, , Lisa. will send update to [facility] and follow to assist with DC planning.
[2023-09-30 10:30] VITALS: BMI 17.2
--- NOTE | 2023-09-30 10:34 | MHC.CLN ---
PT IS MODERATELY MALNOURISHED PT WITH MILDLY DEPLETD SUBCUTANEOUS FAT AND MUSCLE MASS WITH BMI 17 AND POOR PO INTAKE R/T ACUTE ILLNESS NO SIGNIFICANT WT LOSS X 6 MONTHS HOWEVER PT REMAINS UNDER WT FOR HT AND MALNOURISHED PT FAMILIAR FROM MULTIPLE PREVIOUS ADMISSIONS DIET RX; REGULAR-APPROPRIATE RECOMMEND ADDING ENSURE TID TO INCREASE KCALS SUPP TO PROVIDE 1050KCALS, 60G PROTEIN MONITOR PO INTAKE AND ENCOURAGE SUPPLEMENTS SEE ALSO FULL CLINICAL NUTRITION ASSESSMENT
[2023-09-30 11:12] VITALS: BP 131/62; PULSE 73; RESP 18; TEMP 36.2; O2SAT 97
--- NOTE | 2023-09-30 13:14 | PM.DS ---
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 Cisneros, chemotherapy has been withheld for now last chemotherapy was in May of 2023, patient diagnosed to have COVID infection on September 26, since then was having generalized weakness, decreased appetite, and today after he took his sodium powder medication he started coughing followed by multiple episodes of vomiting therefore call 911 and patient was brought in to [place] emergency room where he was noted to be hypoxic with finger oximetry 86% documented in triage note by EMS, as per patient he feels generally fatigued, has decreased appetite, complain of intermittent cough, denies fever, no chills, denies headache, no lightheadedness, denies sick contacts, requiring assistance with out of bed to chair , able to ambulate from bed to bathroom get fatigued with minimal exertion, chest x-ray showed bilateral lung opacities could be related to atelectasis, pneumonitis or lung masses, WBC 11.5 with 10% bands, sodium 134, BUN 28 creatinine of 0.61 lactic acid 2.6, patient received IV fluids and IV antibiotics in the emergency room and now being admitted for failure to thrive, COVID-19 infection and hypoxia. Hospital course: 73-year-old gentleman with past medical history of renal cancer, colon cancer status post colon resection and ostomy presented to [facility] due to generalized weakness poor by mouth intake coughing and vomiting with recently diagnosed COVID-19 infection Acute hypoxia likely due to COVID-19, hypoxia resolved oxygenation remained stable with ambulation, recommend supportive care with cough medication vitamin-C chest x-ray findings likely related to COVID with no secondary bacterial infection, no fevers, no leukocytosis, does not qualify for antibiotics, noted to have acute lactic acidosis likely due to dehydration and not due to sepsis treated with IV fluids with normalization of lactic acid. 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 Cisneros. Time Attestation Discharge Coordination Time (in mins): 35 Quality: Safe Use of Opioids Does Pt have an Active Cancer Diagnosis on the Problem List?: No Quality: Stroke Does the patient have a stroke diagnosis?: No Physical Exam Vital Signs: Vital Signs: Last Vital Signs Temp 97.2 F 09/30/23 11:12 Pulse 73 09/30/23 11:12 Resp 18 09/30/23 11:12 BP 131/62 09/30/23 11:12 Pulse Ox 97 09/30/23 11:12 O2 Del Method Room Air 09/30/23 11:12 BMI result Body Mass Index 17.2 Const: Other: Constitutional :?frail appearing, awake alert x3, in no distress HEENT PERRLA, anicteric sclerae Neck : Normal inspection,? no JVD Cardiovascular : RRR, Respiratory :? clear to auscultate? no crackles, wheezes or rhonchi Gastrointestinal:? soft, Normal bowel sounds, Non tender, ostomy functioning well Skin : Warm, Dry no pallor Extremities no edema Neurological : Alert & oriented x3, No focal deficit , CN 2-12 within normal psych appropriate affect DS: Data Data Completed and Pending Completed studies during hospitalization [Text1]: Procedures Bypass Sigmoid Colon to Cutaneous, Open Approach (09/02/21) Drainage of Right Kidney, Percutaneous Approach, Diagnostic (09/02/21) Excision of Bladder, Open Approach (09/02/21) Excision of Rectum, Open Approach (09/02/21) Excision of Right Kidney, Percutaneous Approach, Diagnostic (09/02/21) Excision of Sigmoid Colon, Open Approach (09/02/21) Excision of Sigmoid Colon, Via Natural or Artificial Opening Endoscopic, Diagnostic (09/02/21) Release Peritoneum, Open Approach (12/30/21) Removal of Drainage Device from Peritoneal Cavity, Open Approach (12/30/21) Removal of Infusion Device from Great Vessel, Open Approach (07/10/22) Removal of Tunneled Vascular Access Device from Trunk Subcutaneous Tissue and Fascia, Open Approach (07/10/22) Repair Bladder, Open Approach (09/02/21) Labs on day of discharge: Laboratory Results - last 24 hr 09/29/23 09/29/23 09/29/23 14:16 14:18 14:25 WBC 11.5 H RBC 4.01 L Hgb 11.9 L Hct 35.4 L MCV 88.3 MCH 29.7 MCHC 33.6 RDW 15.5 Plt Count 187 MPV 9.3 L Immature Gran % (Auto) Cancelled Neut % (Auto) Cancelled Lymph % (Auto) Cancelled [place] % (Auto) Cancelled Eos % (Auto) Cancelled Baso % (Auto) Cancelled Lymph # (Auto) Cancelled [place] # (Auto) Cancelled Eos # (Auto) Cancelled Baso # (Auto) Cancelled Abs Immat Gran (auto) Cancelled Absolute Neuts (auto) Cancelled Absolute Nucleated RBC 0.000 Nucleated RBC % (auto) 0.0 Neutrophils % (Manual) 88 H Band Neutrophils % 10 H Lymphocytes % (Manual) 2 L Abs Neuts (Manual) 11.3 H Lymphocytes # (Manual) 0.2 L Platelet Estimate NORMAL Plt Morphology Comment NORMAL RBC Morphology NOTED Acanthocytes (Spur) 3+ (>5) Smear Tech's Comments MANUAL DIFF VBG pH 7.42 VBG pCO2 34 VBG pO2 53 VBG HCO3 22 VBG O2 Saturation 82.0 VBG Base Excess -0.9 Sodium 134 L Potassium 4.0 Chloride 104 Carbon Dioxide 25 Anion Gap 9 L BUN 28 H Creatinine 0.61 Estim Creat Clear Calc 91.2 Estimated GFR > 60 Random Glucose 114 Lactic Acid Lactic Acid F/U @ 2Hr Calcium 8.8 D Total Bilirubin 0.5 Direct Bilirubin 0.2 AST 45 H ALT 19 Alkaline Phosphatase 131 H Troponin I High Sens 3.9 Total Protein 5.4 L Albumin 2.7 L Lipase 15 Influenza Type A (PCR) NEGATIVE Influenza Type B (PCR) NEGATIVE RSV RNA Qual (PCR) NEGATIVE SARS-CoV-2 RNA (RT-PCR) POSITIVE A 09/29/23 09/29/23 17:15 20:37 WBC RBC Hgb Hct MCV MCH MCHC RDW Plt Count MPV Immature Gran % (Auto) Neut % (Auto) Lymph % (Auto) [place] % (Auto) Eos % (Auto) Baso % (Auto) Lymph # (Auto) [place] # (Auto) Eos # (Auto) Baso # (Auto) Abs Immat Gran (auto) Absolute Neuts (auto) Absolute Nucleated RBC Nucleated RBC % (auto) Neutrophils % (Manual) Band Neutrophils % Lymphocytes % (Manual) Abs Neuts (Manual) Lymphocytes # (Manual) Platelet Estimate Plt Morphology Comment RBC Morphology Acanthocytes (Spur) Smear Tech's Comments VBG pH VBG pCO2 VBG pO2 VBG HCO3 VBG O2 Saturation VBG Base Excess Sodium Potassium Chloride Carbon Dioxide Anion Gap BUN Creatinine Estim Creat Clear Calc Estimated GFR Random Glucose Lactic Acid 2.6 H* Lactic Acid F/U @ 2Hr 0.9 Calcium Total Bilirubin Direct Bilirubin AST ALT Alkaline Phosphatase Troponin I High Sens Total Protein Albumin Lipase Influenza Type A (PCR) Influenza Type B (PCR) RSV RNA Qual (PCR) SARS-CoV-2 RNA (RT-PCR) Discharge Plan Discharge Anticipated Discharge Date/Time: 09/30/23 13:06 Patient Disposition: Home Health Service Discharge Diagnosis: Acute hypoxia Failure to thrive COVID-19 infection Chronic hyponatremia Referrals: Physician,Ulises J [Primary Care Provider] - 1 Week Discharge Medications: New dextromethorphan-guaifenesin 10-100 mg/5 mL Syrup 10 ml PO TID Qty: 237 0RF Rx Instructions: Use cough medication for 3-5 days Continued midodrine 5 mg tablet 5 mg PO BID@0900,1800 Hold Instructions: blood pressure stable hold for now, follow up with pcp. Eliquis 5 mg tablet 5 mg PO BID Qty: 60 3RF Ure-Na 15 gram powder in packet 2 packet PO BID sodium chloride 1,000 mg tablet,soluble 2,000 mg PO BID levothyroxine 75 mcg capsule 75 mcg PO DAILY@0630 olanzapine 2.5 mg Tablet 2.5 mg PO BEDTIME ascorbate calcium (vitamin C) 500 mg tablet 500 mg PO DAILY ferrous sulfate 325 mg (65 mg iron) tablet 325 mg PO DAILY Discharge Orders: Discharge Order (Routine); Ordered 09/30/23 Ordered By: Tray Canales Diet: fluid 1500 ml Activity on Discharge: As tolerated Stand Alone Forms: Patient Portal Discharge page Care Plan Goals: COVID-19 infection with failure to thrive transient hypoxia resolved Take cough medication as needed Health Concerns: Continue all home medications Orthostatic hypotension Chronic hyponatremia Metastatic cancer with colostomy Plan of Treatment: Outpatient follow-up with primary care physician/nephrology/Dr. Cisneros as previously planned. Assessment: as above
--- NOTE | 2023-09-30 13:37 | MHC.CM.PN ---
Pt. has been medically cleared for DC, he will go home via family transport and resume previous services.
== END 2023-09-30 14:51 | disposition home health service (06) | DRG 178 ==
LOC: HO.ED 16:03 → HO.EDOVER 17:53 → HO.IMC 09-30 07:20
PROVIDERS: Admitting Provider Hospitalist; Emergency Provider Emergency Medicine; PCP Internal Medicine; Visit Provider Hospitalist
DX: U07.1 COVID-19 (principal); C19 Malignant neoplasm of rectosigmoid junction; E44.0 Moderate protein-calorie malnutrition; E87.1 Hypo-osmolality and hyponatremia; Z68.1 Body mass index [BMI] 19.9 or less, adult; C78.00 Secondary malignant neoplasm of unspecified lung; C79.89 Secondary malignant neoplasm of other specified sites; R09.02 Hypoxemia; I95.1 Orthostatic hypotension; E03.8 Other specified hypothyroidism; Z86.711 Personal history of pulmonary embolism; Z93.3 Colostomy status; R62.7 Adult failure to thrive; Z87.891 Personal history of nicotine dependence; Z79.01 Long term (current) use of anticoagulants; Z79.890 Hormone replacement therapy; Z79.899 Other long term (current) drug therapy
CPT/HCPCS: 0241U; 36415; 71045; 80048; 80076; 82803; 83605; 83690; 84484; 85007; 85025; 85027; 87040; 87205; 93005; 99285; J0696; J2405; J8540

== ENCOUNTER → 2023-09-29 13:34 | Outpatient (BNV) | payer OTHER, SELFPAY | PROVIDERS: Admitting Provider Hospitalist; Emergency Provider Emergency Medicine; PCP Internal Medicine; Visit Provider Internal Medicine Cardiovascular Disease | DX: R00.0 Tachycardia, unspecified (principal) | CPT/HCPCS: 93010 ==

== ENCOUNTER → 2023-09-29 17:47 | Outpatient (BNV) | payer OTHER, SELFPAY | PROVIDERS: Admitting Provider Hospitalist; Emergency Provider Emergency Medicine; Visit Provider Hospitalist | DX: U07.1 COVID-19 (principal); E87.1 Hypo-osmolality and hyponatremia; R62.7 Adult failure to thrive; R09.02 Hypoxemia | CPT/HCPCS: 99223; 99239 ==

== ENCOUNTER → 2023-09-29 17:47 | Outpatient (BNV) | payer OTHER, MEDICARE, SELFPAY | PROVIDERS: Admitting Provider Hospitalist; Emergency Provider Emergency Medicine; PCP Internal Medicine; Visit Provider Internal Medicine Hypertension Specialist | DX: E87.1 Hypo-osmolality and hyponatremia (principal) | CPT/HCPCS: 99222 ==

== ENCOUNTER 2023-10-01 00:22 | Inpatient (IN) | payer OTHER, MEDICARE, SELFPAY ==
[2023-10-01] VITALS (7 sets, daily range): BP systolic 115–165; BP diastolic 63–79; PULSE 54–76; RESP 10–15; TEMP 36.4–36.6; O2SAT 92–99; BMI 18.1
--- NOTE | ~2023-10-01 | XR_ITS ---
EXAMINATION: XR CHEST CLINICAL INFORMATION: Cough, fever COMPARISON: 09/29/2023 TECHNIQUE: Frontal view of the chest was obtained. FINDINGS: Right IJ port catheter tip lies in the region of the distal SVC. Lung volumes are symmetric. Interval decrease in patchy/hazy bilateral lung opacities compared to prior. No evidence of pneumothorax or significant pleural effusion. Cardiac size is within normal limits. Calcification is present at the aortic arch. No acute osseous findings are seen. XR/XR chest 1V IMPRESSION: Interval decrease in patchy/hazy bilateral lung opacities compared to 09/29/2023.
--- NOTE | 2023-10-01 00:45 | ED_ITS ---
HPI - Recheck/Abnormal Lab/Rx General Chief Complaint: General Medical Stated Complaint: RETURN FOR ABN LABS,+COVID PER EMS Time Seen by Provider: 10/01/23 00:31 Source: patient, EMS and old records reviewed Mode of arrival: EMS Limitations: other (poor historian) History of Present Illness HPI narrative: 73 yo male with PMH of renal cell carcinoma and metastatic rectosigmoid adenocarcinoma with pulmonary and pituitary mets follows with [facility] last chemo was in May 2023, PE on eliquis, hypothyroidism, HTN, chronic hypoNa on salt tablets and urea. He was dx with COVID on 09/26 and came to the ED on 09/28 for weakness, malaise, anorexia, was found to be hypoxic to 86% - had bilaterally patchy opacities on CXR - started on ceftriaxone/doxy and IV dexamethasone. Inpatient hypoxia resolved. DC home with supportive medications. Called back tonight due to GPR 1/2 in anaerobic bottles he denies fevers, still has cough and weakness. He is confused why he was called back. MD complaint: abnormal lab Initial visit (ago): day(s) (09/28) Initial visit for: other (covid and hypoxia) Returns today for: called because of abnormal lab/test Description of abnormal result: GPR 1/2 culture bottles Symptoms since prior visit: no new symptoms Context: called for abnormal lab result Associated symptoms: chills and other (cough) Related Data Home Medications Medication Instructions Recorded Confirmed ascorbate calcium (vitamin C) 500 500 mg PO DAILY 10/09/21 09/29/23 mg tablet ferrous sulfate 325 mg (65 mg 325 mg PO DAILY 10/09/21 09/29/23 iron) tablet midodrine 5 mg tablet 5 mg PO BID@0900,1800 07/08/22 09/29/23 sodium chloride 1,000 mg soluble 2,000 mg PO BID 04/27/23 09/29/23 tablet levothyroxine 75 mcg capsule 75 mcg PO DAILY@0630 06/17/23 09/29/23 urea 15 gram oral powder packet 2 packet PO BID 09/16/23 09/29/23 (Ure-Na) olanzapine 2.5 mg tablet 2.5 mg PO BEDTIME 09/29/23 09/29/23 Previous Rx's Medication Instructions Recorded apixaban 5 mg tablet (Eliquis) 5 mg PO BID #60 tabs 04/29/23 dextromethorphan-guaifenesin 10 10 ml PO TID #237 mL 09/30/23 mg-100 mg/5 mL oral syrup Allergies Allergy/AdvReac Type Severity Reaction Status Date / Time No Known Allergies Allergy Verified 09/29/23 13:25 Review of Systems 2 Review of Systems: Constitutional : No Fever, pos Chills, pos fatigue ENT/Mouth : No Hoarseness, No sore throat, No Rhinorrhea Eyes: No Redness, No Discharge, No Vision Changes Cardiovascular : No Chest Pain, no SOB, no Dyspnea on Exertion, No Edema Respiratory : positive Cough, No Sputum, no Wheezing, Gastrointestinal : pos Nausea, No Vomiting, No Diarrhea, No abdominal Pain Genitourinary : No Dysuria, No Hematuria Musculoskeletal : No joint pain, No Myalgias Skin : No rash Neuro : pos Weakness, No Numbness, No Headache Psych : No anxiety, depression Heme/Lymph: No Bruising, No Bleeding Endocrine : No Polyuria, No Polydipsia All other systems reviewed and are negative [facility] Past Medical History Attestation statement: The following information was validated with the patient. 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 Renal cell carcinoma Rectosigmoid cancer Pituitary lesion Fever of unknown origin Mass of pituitary Headache Colostomy in place HTN (hypertension) [place]-vesical fistula Surgical History History of removal of Port-a-Cath H/O hernia repair S/P colon resection Family History Family History Mother Parkinsons disease Father ESRD (end stage renal disease) Other No family history of cancer Social History Social History Household Members: Spouse Household Members Other:: with Housing: House Are you a primary youth care professional to a significant other at home: No Do you presently have visiting nurse or other home services: Yes Alcohol intake: never Patient Tobacco Use Status: Former Tobacco user Quit Date: 30 y.o Tobacco use type: Cigarette Years Smoked: 30 years ago e-Cigarette/Vaping Use: Never Used Second Hand Smoke Exposure: No Advance Directives: Yes Advance Directives on File: Yes Advance Directives Date on File: 06/17/23 service: Yes Current occupational status: employed and retired Cognitive needs: No Hearing needs: No Vision needs: No Physical Exam 2 Vital Signs: Vital Signs: Last Vital Signs Temp 97.6 F 10/01/23 01:12 Pulse 76 10/01/23 01:12 Resp 11 L 10/01/23 01:12 BP 130/75 10/01/23 01:12 Pulse Ox 95 10/01/23 01:12 O2 Del Method Room Air 10/01/23 01:12 BMI result Body Mass Index 18.1 Appearance: Alert. Oriented X3. No acute distress. Frail and thin appearing Eyes: Pupils equal, round and reactive to light. ENT: Pharynx dry MM Neck: Normal inspection. Neck supple. CVS: Normal heart rate and rhythm. Pulses normal. Respiratory: No respiratory distress. Breath sounds diminished and coarse. has a very coarse cough Abdomen: Soft and nontender. Skin: Skin warm and dry. Normal skin color. poor skin turgor. Extremities: No lower extremity edema. No calf ttp Neuro: Oriented X 3. No motor deficit. No sensory deficit. Medications Administered Generic Name Dose Route Start Last Admin Trade Name Freq PRN Reason Stop Dose Admin Sodium Chloride 500 mls @ 500 mls/hr 10/01/23 01:45 10/01/23 02:15 Ns IV 10/01/23 02:44 500 mls/hr .Q1H DMITRY Administration Discontinued Medications Generic Name Dose Route Start Last Admin Trade Name Freq PRN Reason Stop Dose Admin Cefepime HCl 1 gm/ Sodium 50 mls @ 100 mls/hr 10/01/23 01:08 10/01/23 01:37 Chloride IV 10/01/23 01:37 100 mls/hr ONCE ONE Administration Medical Decision Making Medical Decision Making MDM Narrative: 73 yo male with PMH of renal cell carcinoma and metastatic rectosigmoid adenocarcinoma with pulmonary and pituitary mets follows with [facility] last chemo was in May 2023, PE on eliquis, hypothyroidism, HTN, chronic hypoNa on salt tablets and urea called back with GPR in blood cultures at this time will need basic labs, repeat cultures, lactic acid and start on empiric cefepime. Plan to admit Differential Diagnosis Differential Diagnoses: The differential diagnosis associated with the presentation includes contaminant, given bandemia concern for bacteremia Admission/Observation Consideration of admission/observation: Escalation of care including admission/observation considered admit for culture surveillance Consult Healthcare Provider Management of the patient was discussed with: Hospitalist (will admit) Lab Data MDM Lab Attestation statement: I reviewed the patient's lab results. 10/01/23 01:01 10/01/23 01:01 Labs: Lab Results 10/01/23 Range/Units 01:01 WBC 7.6 (4.8-10.8) X10*3/uL RBC 3.39 L (4.60-5.80) X10*6/uL Hgb 9.9 L (14.0-18.0) g/dl Hct 30.2 L (42.0-52.0) % MCV 89.1 (80.0-98.0) fL MCH 29.2 (27.0-33.0) pg MCHC 32.8 (31.0-36.0) g/dl RDW 15.5 (11.0-16.0) % Plt Count 178 (160-400) X10*3/uL MPV 10.2 (9.4-12.4) fL Immature Gran % (Auto) 0.5 H (0.0-0.4) % Neut % (Auto) 82.5 H (45-73) % Lymph % (Auto) 11.1 L (20-40) % [place] % (Auto) 5.9 (2-11) % Eos % (Auto) 0.0 (0-4) % Baso % (Auto) 0.0 (0-2) % Lymph # (Auto) 0.8 L (1.2-4.9) X10*3/uL [place] # (Auto) 0.5 (0.1-1.2) X10*3/uL Eos # (Auto) 0.0 (0.0-0.4) X10*3/uL Baso # (Auto) 0.0 (0.0-0.2) X10*3/uL Abs Immat Gran (auto) 0.04 H (0.00-0.03) X10*3/uL Absolute Neuts (auto) 6.3 (2.0-8.3) x10*3/uL Absolute Nucleated RBC 0.000 (0.0-0.012) X10*3/uL Nucleated RBC % (auto) 0.0 (0.0-0.2) /100WBC ESR 16 H (0-15) MM/HR Sodium 138 (135-145) mmol/L Potassium 4.0 (3.3-5.1) mmol/L Chloride 109 H (96-108) mmol/L Carbon Dioxide 24 (22-29) mmol/L Anion Gap 9 L (12-20) BUN 28 H (9-16) mg/dL Creatinine 0.62 (0.5-1.4) mg/dL Estim Creat Clear Calc 95.9 Estimated GFR > 60 Random Glucose 111 (60-115) mg/dL Lactic Acid 2.8 H* (0.5-2.0) mmol/L Calcium 8.0 L D (8.4-10.2) mg/dL Magnesium 1.7 (1.6-2.6) mg/dL Total Bilirubin 0.3 (0.0-1.0) mg/dL Direct Bilirubin 0.1 (0.0-0.5) mg/dL AST 39 H (5-37) U/L ALT 18 (0-40) U/L Alkaline Phosphatase 101 (39-117) U/L C-Reactive Protein 6.42 H (< or = 0.50) mg/dL Total Protein 4.7 L (6.5-8.0) g/dL Albumin 2.4 L (3.5-5.0) g/dL COVID-19 (JAS) Positive A (Negative) COVID-19 Clin Com See Note Independent Interpretation I performed an independent interpretation of an: Plain X-Ray (patchy opacities) Radiology Impression Discussion of test interpretation with radiology: I have reviewed the radiologist's reading. Independent Historian Clinical information obtained from an independent historian. History obtained from or confirmed by: EMS External Record Review External record reviewed: Inpatient record Discharge Plan Discharge Clinical Impression: Positive blood culture, COVID-19 Patient Disposition: Admitted As Inpatient
[2023-10-01 01:16] LABS: MANUAL DIFF FLAG NO
[2023-10-01 01:17] LABS: Hematocrit 30.2 % (42.0-52.0); Hemoglobin 9.9 g/dl (14.0-18.0); Imm Gran Abs Auto 0.04 X10*3/uL (0.00-0.03); Imm Gran Pct Auto 0.5 % (0.0-0.4); Lymphocytes Absolute Auto 0.8 X10*3/uL (1.2-4.9); Lymphocytes Percent Auto 11.1 % (20-40); Mean Corpuscular HGB Conc 32.8 g/dl (31.0-36.0); Mean Corpuscular Hemoglobin 29.2 pg (27.0-33.0); Mean Corpuscular Volume 89.1 fL (80.0-98.0); Mean Platelet Volume 10.2 fL (9.4-12.4); Monocytes Absolute Auto 0.5 X10*3/uL (0.1-1.2); Monocytes Percent Auto 5.9 % (2-11); Neutrophils Absolute Auto 6.3 x10*3/uL (2.0-8.3); Neutrophils Percent Auto 82.5 % (45-73); Platelet Count 178 X10*3/uL (160-400); Red Blood Count 3.39 X10*6/uL (4.60-5.80); Red Cell Distribution Width 15.5 % (11.0-16.0); White Blood Count 7.6 X10*3/uL (4.8-10.8)
[2023-10-01 01:29] LABS: COVID-19 Test Positive (Negative); IDNOW Serial# 152EDE1D
[2023-10-01 01:36] LABS: Alanine Aminotransferase 18 U/L (0-40); Albumin Level 2.4 g/dL (3.5-5.0); Alkaline Phosphatase 101 U/L (39-117); Anion Gap 9 (12-20); Aspartate Amino Transferase 39 U/L (5-37); Bilirubin Direct 0.1 mg/dL (0.0-0.5); Bilirubin Total 0.3 mg/dL (0.0-1.0); Blood Urea Nitrogen 28 mg/dL (9-16); C Reactive Protein 6.42 mg/dL (< or = 0.50); Carbon Dioxide 24 mmol/L (22-29); Chloride 109 mmol/L (96-108); Creatinine Clr Calc Pharmacy 95.9; Estimated Glomerular Filt Rate > 60; Glucose Random 111 mg/dL (60-115); Magnesium 1.7 mg/dL (1.6-2.6); Sodium 138 mmol/L (135-145); Total Protein 4.7 g/dL (6.5-8.0)
[2023-10-01] MEDS: cefEPime HCl 1 GM in 0.9 % Sodium Chloride 50 ML IV (01:37)
[2023-10-01 01:39] LABS: Lactic Acid 2.8 mmol/L (0.5-2.0)
--- NOTE | 2023-10-01 01:48 | PC.NURSE ---
pt medicated per Mar.
[2023-10-01 01:53] LABS: Erythrocyte Sedimentation Rate 16 MM/HR (0-15)
[2023-10-01] MEDS: 0.9 % Sodium Chloride 500 ML IV (02:15)
--- NOTE | 2023-10-01 02:25 | PC.NURSE ---
colostomy bag changed, medicated per sep.
[2023-10-01 03:13] LABS: Procalcitonin 0.31 ng/mL
[2023-10-01 03:15] LABS: Reflex Lactate? Lactic Acid Added
[2023-10-01 03:39] LABS: Hematocrit 28.1 % (42.0-52.0); Hemoglobin 9.2 g/dl (14.0-18.0); Imm Gran Abs Auto 0.02 X10*3/uL (0.00-0.03); Imm Gran Pct Auto 0.3 % (0.0-0.4); Lymphocytes Absolute Auto 0.9 X10*3/uL (1.2-4.9); Lymphocytes Percent Auto 12.8 % (20-40); MANUAL DIFF FLAG NO; Mean Corpuscular HGB Conc 32.7 g/dl (31.0-36.0); Mean Corpuscular Hemoglobin 29.3 pg (27.0-33.0); Mean Corpuscular Volume 89.5 fL (80.0-98.0); Mean Platelet Volume 9.5 fL (9.4-12.4); Monocytes Absolute Auto 0.3 X10*3/uL (0.1-1.2); Monocytes Percent Auto 5.1 % (2-11); Neutrophils Absolute Auto 5.4 x10*3/uL (2.0-8.3); Neutrophils Percent Auto 81.8 % (45-73); Platelet Count 147 X10*3/uL (160-400); Red Blood Count 3.14 X10*6/uL (4.60-5.80); Red Cell Distribution Width 15.6 % (11.0-16.0); White Blood Count 6.6 X10*3/uL (4.8-10.8)
--- NOTE | 2023-10-01 03:50 | P.HPHOSP_ITS ---
History of Present Illness Date of Service: 10/01/23 Attending physician on admission: Eliazar Parr Chief Complaint: Abnormal blood culture Alfredo Diallo is a 73 years old man with past medical history significant for renal cell CA and metastatic rectosigmoid adenocarcinoma (lung, pituitary -chemo withheld), PE, hypothyroidism, essential hypertension, chronic hyponatremia and recent hospitalization (discharged yesterday) was found to have blood culture positive for gram (+) rods (one bottle -obtained 09/29/23). He was hospitalized with diagnosis of acute hypoxia likely secondary to COVID-19. The patient denied any shortness on breath, chest pain, nausea, vomiting, diarrhea, abdominal pain, palpitations or pain with urination. He is complained of cough. He denied tobacco smoking, alcohol abuse or illicit drug use. In the ED, he was found to have stable vital signs. Blood workup showed no leukocytosis. Bands 10%. There are no significant electrolyte imbalances. Creatinine 0.58. Lactic acid 2.8. LFTs basically unremarkable (minimal elevation of AST). CXR so decreased patchy/hazy bilateral lung opacities. ED tx: Cefepime 1 g IV, NS 500 ml. Review of Systems 2 Review of Systems: All 12 systems were reviewed and normal except as noted in HPI. 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 Renal cell carcinoma Rectosigmoid cancer Pituitary lesion Fever of unknown origin Mass of pituitary Headache Colostomy in place HTN (hypertension) [place]-vesical fistula Family History Mother Parkinsons disease Father ESRD (end stage renal disease) Other No family history of cancer Surgical History History of removal of Port-a-Cath H/O hernia repair S/P colon resection Social History Household Members: Spouse Household Members Other:: with Housing: House Are you a primary home health care physician to a significant other at home: No Do you presently have visiting nurse or other home services: Yes Alcohol intake: never Patient Tobacco Use Status: Former Tobacco user Quit Date: y.o Tobacco use type: Cigarette Years Smoked: 30 years ago e-Cigarette/Vaping Use: Never Used Second Hand Smoke Exposure: No Advance Directives Date on File: 06/17/23 service: Yes Current occupational status: employed and retired Cognitive needs: No Hearing needs: No Vision needs: No Meds Allergies Allergy/AdvReac Type Severity Reaction Status Date / Time No Known Allergies Allergy Verified 09/29/23 13:25 Active Medications: Current Medications Acetaminophen (Acetaminophen 325 Mg Tablet) 650 mg PO Q6H PRN PRN Reason: Pain, Mild (Pain Scale 1-3) Sodium Chloride (0.9 % Sodium Chloride Flush 3 Ml Syringe) 3 ml IVFLUSH QSHIFT [facility] Home Medications Medication Instructions Recorded Confirmed Last Taken Type ascorbate calcium (vitamin C) 500 500 mg PO DAILY 10/09/21 09/29/23 09/29/23 History mg tablet ferrous sulfate 325 mg (65 mg 325 mg PO DAILY 10/09/21 09/29/23 09/29/23 History iron) tablet midodrine 5 mg tablet 5 mg PO BID@0900,1800 07/08/22 10/01/23 09/29/23 History sodium chloride 1,000 mg soluble 2,000 mg PO BID 04/27/23 10/01/23 09/29/23 History tablet levothyroxine 75 mcg capsule 75 mcg PO DAILY@0630 06/17/23 10/01/23 09/29/23 History urea 15 gram oral powder packet 2 packet PO BID 09/16/23 09/29/23 09/29/23 History (Ure-Na) olanzapine 2.5 mg tablet 2.5 mg PO BEDTIME 09/29/23 09/29/23 09/28/23 History urea 15 gram oral powder packet PO BID 10/01/23 Unknown History (Ure-Na) Physical Exam 2 Vital Signs and Narrative: Vital Signs: Last Vital Signs Temp 97.6 F 10/01/23 01:12 Pulse 76 10/01/23 01:12 Resp 11 L 10/01/23 01:12 BP 130/75 10/01/23 01:12 Pulse Ox 95 10/01/23 01:12 O2 Del Method Room Air 10/01/23 01:12 BMI result Body Mass Index 18.1 Constitutional - Awake and Alert, No apparent distress. Cooperative please HEENT - temporal wasting. Normal sclerae. Moist oral mucosa. Heart - S1S2, RRR. Chest - Port-A-Cath in place (right side) Lungs - Normal lung expansion, Normal respiratory effort, No respiratory distress, CTA bilaterally Abdomen - NT / ND; +BS; No rebound or guarding - No CVA tenderness Extremities - no calf tenderness bilaterally, no swelling Musculoskeletal - Normal inspection, normal ROM Skin - Warm/Dry Neurological - Alert & oriented x3. No focal weakness grossly noted. Normal speech Psychological - Appropriate affect Results Labs 10/01/23 03:32 10/01/23 01:01 Labs: Laboratory Results - last 24 hr 10/01/23 10/01/23 01:01 03:32 MCV 89.1 89.5 MCH 29.2 29.3 MCHC 32.8 32.7 RDW 15.5 15.6 Plt Count 178 147 L MPV 10.2 9.5 Immature Gran % (Auto) 0.5 H 0.3 Neut % (Auto) 82.5 H 81.8 H Lymph % (Auto) 11.1 L 12.8 L Bartholomew % (Auto) 5.9 5.1 Eos % (Auto) 0.0 0.0 Baso % (Auto) 0.0 0.0 Lymph # (Auto) 0.8 L 0.9 L Bartholomew # (Auto) 0.5 0.3 Eos # (Auto) 0.0 0.0 Baso # (Auto) 0.0 0.0 Abs Immat Gran (auto) 0.04 H 0.02 Absolute Neuts (auto) 6.3 5.4 Absolute Nucleated RBC 0.000 0.000 Nucleated RBC % (auto) 0.0 0.0 ESR 16 H Anion Gap 9 L Estim Creat Clear Calc 95.9 Estimated GFR > 60 Random Glucose 111 Lactic Acid 2.8 H* Calcium 8.0 L D Magnesium 1.7 Total Bilirubin 0.3 Direct Bilirubin 0.1 AST 39 H ALT 18 Alkaline Phosphatase 101 C-Reactive Protein 6.42 H Total Protein 4.7 L Albumin 2.4 L Procalcitonin 0.31 COVID-19 (JAS) Positive A COVID-19 Clin Com See Note Imaging Radiologist's Impressions: Impressions Chest X-Ray 10/01/23 01:16 IMPRESSION: Interval decrease in patchy/hazy bilateral lung opacities compared to 09/29/2023. Assessment and Plan (1) Positive blood culture: Status: Acute (2) COVID-19: Status: Acute (3) Adult failure to thrive: Status: Acute Plan Alfredo Diallo is a 73 years old man admitted with: * Positive blood culture: Gram-positive rods (one bottle), contamination? Patient is asymptomatic. No fever, no tachycardia, no hypotension and no leukocytosis. Blood cultures were repeated -awaiting for results. One dose of cefepime given in the emergency department. * COVID-19. Normal O2 sat. No respiratory distress. CXR findings, improving. * Lactic acidosis, likely dehydration. Continue IV fluids. Continue to monitor lactic acid. * Moderate protein calorie malnutrition. Ensure. * Failure to thrive secondary to active cancer. * Chronic hyponatremia. Continue sodium tablets. * Hypothyroidism. Continue levothyroxine. * History of pulmonary embolism. Continue Eliquis. * History of orthostatic hypotension. Continue midodrine. * History of renal cell carcinoma and metastatic rectosigmoid adenocarcinoma. s/p resection and colostomy. Follow with Dr. Cisneros. DVT prophylaxis: On Eliquis Code status: Full Patient will need hospitalization for at least 2 midnight evaluation of positive blood culture. Patient will need close vital signs monitoring and treatment with IV fluids and empiric IV antibiotic therapy. Quality Stroke Does the patient have a stroke diagnosis?: No VTE Prior VTE?: No VTE Risk Level:: Medical - moderate - high VTE Device Contraindication: Treatment Not Indicated VTE Drug Contraindication: N/A - Med Ordered
[2023-10-01 03:57] LABS: Alanine Aminotransferase 18 U/L (0-40); Albumin Level 2.2 g/dL (3.5-5.0); Alkaline Phosphatase 91 U/L (39-117); Anion Gap 9 (12-20); Aspartate Amino Transferase 39 U/L (5-37); Bilirubin Total 0.2 mg/dL (0.0-1.0); Blood Urea Nitrogen 28 mg/dL (9-16); Calcium 7.8 mg/dL (8.4-10.2); Carbon Dioxide 25 mmol/L (22-29); Chloride 111 mmol/L (96-108); Creatinine Clr Calc Pharmacy 106.1; Estimated Glomerular Filt Rate > 60; Glucose Random 119 mg/dL (60-115); Potassium 4.1 mmol/L (3.3-5.1); Sodium 141 mmol/L (135-145); Total Protein 4.3 g/dL (6.5-8.0)
[2023-10-01 04:14] LABS: ~Lactic Acid-LAB USE ONLY 2.3 mmol/L (0.5-2.0)
[2023-10-01] MEDS: 0.9 % Sodium Chloride 1,000 ML 75 ML IVCONT ×2 (04:19→18:10)
--- NOTE | 2023-10-01 04:29 | PC.NURSE ---
pt repositioned for comfort.
[2023-10-01 05:37] LABS: Reflex Lactate? 2 Y
[2023-10-01 06:23] LABS: ~Lactic Acid-LAB USE ONLY 2.8 mmol/L (0.5-2.0)
[2023-10-01] MEDS: Levothyroxine Sodium 75 MCG TABLET PO (06:27)
--- NOTE | 2023-10-01 06:30 | PC.NURSE ---
Medicated pt per Mar, reposition for comfort, fall sign and sock in place. call bed at the bedside.
--- NOTE | 2023-10-01 08:45 | MHC.CM.PN ---
Patient lives with his /HCP/Lisa Powell and he was active with [facility] and receiving 5 hours/week of [facility]. Home/resume said services is the goal and CM has initiated and will follow for dc planning. PCP is Dr. Drew Franklin @ [facility] in [place].
--- NOTE | 2023-10-01 09:15 | PC.NURSE ---
PT IS A/O X 4 NO SOB/STEVE NOTED SPEAKS IN FULL SENTENCES. PT HAS SLIGHT EDEMA TO RAVINDRA LOWER EXT. PT R CHEST PORT-A-CATH HAS BEEN ACCESSED AND IVF BEING INFUSED. PT HAS A COLOSTOMY BAG TO L SIDE OF ABD WITH BROWN SOFT STOOL. PT/ AWARE OF PLAN OF CARE. WILL CONTINUE TO MONITOR.
[2023-10-01] MEDS: Midodrine HCl 5 MG TABLET PO ×2 (09:26→18:10)
[2023-10-01] MEDS: Apixaban 5 MG TABLET PO ×2 (09:26→21:24)
[2023-10-01] MEDS: 0.9 % Sodium Chloride Flush 3 ML SYRINGE IVFLUSH (09:27)
[2023-10-01] MEDS: 0.9 % Sodium Chloride 500 ML 999 ML IV (09:27)
[2023-10-01] MEDS: Sodium Chloride Tab 1 GM TABLET 2 GM PO ×2 (09:29→21:24)
[2023-10-01 10:19] LABS: Lactic Acid 2.1 mmol/L (0.5-2.0)
[2023-10-01 10:47] LABS: Cancel Lactic Acid Canceled
[2023-10-01 10:50] LABS: Reflex Lactate? No addnl Lactic Acid
--- NOTE | 2023-10-01 12:13 | MHC.CM.PN ---
Patient's HCP has been uploaded into [facility] and a copy will be placed on his chart when Patient arrives to [facility].
--- NOTE | 2023-10-01 13:42 | P.EN_ITS ---
Event Note Date of Service: 10/01/23 Event Note: Alfredo Diallo is a 73 years old man admitted with: No acute complaints this morning Exam unchanged * Positive blood culture: 1/2 bottles positive for Gram-positive nicole, patient afebrile, no cough no abdominal pain no nausea, no vomiting, will follow final blood culture report * continue IV Zosyn for now, likely contamination * COVID-19. Normal O2 sat. No respiratory distress. CXR findings, improving. * Acute Lactic acidosis, likely due to dehydration lactic acid improved to 2.1, DC IV fluids * Moderate protein calorie malnutrition. Ensure. * Failure to thrive secondary to active cancer. * Chronic hyponatremia. Continue sodium tablets. * Hypothyroidism. Continue levothyroxine. * History of pulmonary embolism. Continue Eliquis. * History of orthostatic hypotension. Continue midodrine. * History of renal cell carcinoma and metastatic rectosigmoid adenocarcinoma. s/p resection and colostomy. Time Spent With Patient Time: Total time managing care of this patient today ____ minutes.
--- NOTE | 2023-10-01 13:42 | PM.EVENT ---
Event Note Date of Service: 10/01/23 Event Note: Alfredo Diallo is a 73 years old man admitted with: No acute complaints this morning Exam unchanged Positive blood culture: 1/2 bottles positive for Gram-positive nicole, patient afebrile, no cough no abdominal pain no nausea, no vomiting, will follow final blood culture report continue IV Zosyn for now, likely contamination COVID-19. Normal O2 sat. No respiratory distress. CXR findings, improving. Acute Lactic acidosis, likely due to dehydration lactic acid improved to 2.1, DC IV fluids Moderate protein calorie malnutrition. Ensure. Failure to thrive secondary to active cancer. Chronic hyponatremia. Continue sodium tablets. Hypothyroidism. Continue levothyroxine. History of pulmonary embolism. Continue Eliquis. History of orthostatic hypotension. Continue midodrine. History of renal cell carcinoma and metastatic rectosigmoid adenocarcinoma. s/p resection and colostomy. Time Spent With Patient Time: Total time managing care of this patient today ____ minutes.
[2023-10-01] MEDS: Piperacillin Sodium/Tazobactam 3.375 GM in 0.9 % Sodium Chloride 50 ML IV ×2 (14:21→21:24)
--- NOTE | 2023-10-01 14:34 | PHA.MEDREC ---
Pharmacy Consult ? Medication Reconciliation Pharmacy has completed the medication reconciliation. Patient just discharge yesterday 09/29. [facility]. Jacinda Magaña, BurkeD
[2023-10-01 20:10] LABS: Appearance Urine Clear; Color Urine Yellow; Glucose Urine UA Negative (Negative); Leukocyte Esterase Urine Negative (Negative); Nitrite Urine Negative (Negative); PH 6.5 (5.0-9.0); Specific Gravity - Urine 1.025 (1.005-1.025); Urine Blood Negative (Negative); Urine Ketones Negative (Negative); Urine Protein Negative (Neg-Trace)
--- NOTE | 2023-10-01 20:16 | MHC.EDTECH ---
Patient's dinner was reheated and gave to him.
[2023-10-02] VITALS: BP 141/73; PULSE 61; RESP 20; TEMP 36.6; O2SAT 100
[2023-10-02] MEDS: guaiFENesin 100 MG/5 ML LIQUID PO (00:39)
[2023-10-02] MEDS: Piperacillin Sodium/Tazobactam 3.375 GM in 0.9 % Sodium Chloride 50 ML IV ×2 (02:48→10:19)
[2023-10-02 04:00] VITALS: BP 119/65; PULSE 59; RESP 18; TEMP 36.6; O2SAT 97
[2023-10-02] MEDS: Levothyroxine Sodium 75 MCG TABLET PO (06:13)
[2023-10-02] MEDS: 0.9 % Sodium Chloride 1,000 ML 75 ML IVCONT (06:16)
[2023-10-02 07:17] VITALS: BP 138/66; PULSE 81; RESP 20; TEMP 37.2; O2SAT 98
[2023-10-02] MEDS: guaiFENesin DM 200/20/10 ML 10 ML SYRUP PO (10:20)
[2023-10-02] MEDS: Sodium Chloride Tab 1 GM TABLET 2 GM PO (10:21)
[2023-10-02] MEDS: Midodrine HCl 5 MG TABLET PO (10:21)
[2023-10-02] MEDS: Apixaban 5 MG TABLET PO (10:21)
[2023-10-02 11:03] VITALS: BP 153/69; PULSE 69; RESP 20; TEMP 36.9; O2SAT 98
--- NOTE | 2023-10-02 11:23 | PM.DS ---
DS: Providers Provider Date of Service: 10/02/23 Date of admission: 10/01/23 02:40 Primary care physician: None Physician DS: Diagnosis Discharge Diagnosis (1) Positive blood culture: Status: Acute (2) COVID-19: Status: Acute (3) Adult failure to thrive: Status: Acute DS: Summary Hospital Course Hospital Course: History of presenting illness: Date of Service: 10/01/23 Attending physician on admission: Eliazar Parr Chief Complaint: Abnormal blood culture Alfredo Diallo is a 73 years old man with past medical history significant for renal cell CA and metastatic rectosigmoid adenocarcinoma (lung, pituitary -chemo withheld), PE, hypothyroidism, essential hypertension, chronic hyponatremia and recent hospitalization (discharged yesterday) was found to have blood culture positive for gram (+) rods (one bottle -obtained 09/29/23). He was hospitalized with diagnosis of acute hypoxia likely secondary to COVID-19. The patient denied any shortness on breath, chest pain, nausea, vomiting, diarrhea, abdominal pain, palpitations or pain with urination. He is complained of cough. He denied tobacco smoking, alcohol abuse or illicit drug use. In the ED, he was found to have stable vital signs. Blood workup showed no leukocytosis. Bands 10%. There are no significant electrolyte imbalances. Creatinine 0.58. Lactic acid 2.8. LFTs basically unremarkable (minimal elevation of AST). CXR so decreased patchy/hazy bilateral lung opacities. ED tx: Cefepime 1 g IV, NS 500 ml. Hospital course: 73-year-old gentleman recently discharged from [facility] after a brief stay for failure to thrive, transient hypoxia and COVID-19 infection during the hospitalization blood cultures were obtained that grew 1/2 blood culture positive for Gram-positive nicole therefore patient was called back to ED he was noted to be afebrile had no abdominal pain, no nausea, no vomiting, no diarrhea however he received 1 dose of IV cefepime in the emergency room and blood cultures were drawn and patient was admitted to [facility], patient remains hemodynamically stable during the course of hospitalization and offers no acute complaints of skin rash, abdominal pain, no urinary symptoms his blood culture grew Corynebacterium species unlikely pathogen repeat blood cultures x2 also are negative since patient remains hemodynamically stable he is being discharged home to resume all of her home medications as before in regard to COVID-19 patient has no hypoxia he has mild cough and is recommended to continue cough medications. History of PE continue Eliquis History of orthostatic hypotension continue midodrine History of adeno carcinoma rectosigmoid with metastatic lung lesion status post sigmoid resection with colostomy placement currently not receiving chemotherapy recommend outpatient follow-up with Dr. Cisneros Moderate protein calorie malnutrition/failure to thrive recommend protein supplements. Time Attestation Discharge Coordination Time (in mins): 32 Quality: Safe Use of Opioids Does Pt have an Active Cancer Diagnosis on the Problem List?: No Quality: Stroke Does the patient have a stroke diagnosis?: No Physical Exam Vital Signs: Vital Signs: Last Vital Signs Temp 98.4 F 10/02/23 11:03 Pulse 69 10/02/23 11:03 Resp 20 10/02/23 11:03 BP 153/69 H 10/02/23 11:03 Pulse Ox 98 10/02/23 11:03 O2 Del Method Room Air 10/02/23 11:03 BMI result Body Mass Index 18.1 Const: Other: Constitutional :?frail appearing, awake alert x3, in no distress HEENT PERRLA, anicteric sclerae Neck : Normal inspection,? no JVD Cardiovascular : RRR, Respiratory :? clear to auscultate? no crackles, wheezes or rhonchi Gastrointestinal:? soft, Normal bowel sounds, Non tender, ostomy functioning well Skin : Warm, Dry no pallor Extremities no edema Neurological : Alert & oriented x3, No focal deficit , CN 2-12 within normal psych appropriate affect DS: Data Data Completed and Pending Completed studies during hospitalization [Text1]: Procedures Bypass Sigmoid Colon to Cutaneous, Open Approach (09/02/21) Drainage of Right Kidney, Percutaneous Approach, Diagnostic (09/02/21) Excision of Bladder, Open Approach (09/02/21) Excision of Rectum, Open Approach (09/02/21) Excision of Right Kidney, Percutaneous Approach, Diagnostic (09/02/21) Excision of Sigmoid Colon, Open Approach (09/02/21) Excision of Sigmoid Colon, Via Natural or Artificial Opening Endoscopic, Diagnostic (09/02/21) Release Peritoneum, Open Approach (12/30/21) Removal of Drainage Device from Peritoneal Cavity, Open Approach (12/30/21) Removal of Infusion Device from Great Vessel, Open Approach (07/10/22) Removal of Tunneled Vascular Access Device from Trunk Subcutaneous Tissue and Fascia, Open Approach (07/10/22) Repair Bladder, Open Approach (09/02/21) Labs on day of discharge: Laboratory Results - last 24 hr 10/01/23 20:03 Urine Color Yellow Urine Appearance Clear Urine pH 6.5 Ur Specific [place] 1.025 Urine Protein Negative Urine Glucose (UA) Negative Urine Ketones Negative Urine Blood Negative Urine Nitrite Negative Ur Leukocyte Esterase Negative Preliminary micro results at discharge 10/01/23 01:01 Blood Culture - Preliminary Blood - Venous No growth after 24 hours. 10/01/23 01:01 Blood Culture - Preliminary Blood - Venous No growth after 24 hours. Discharge Plan Discharge Anticipated Discharge Date/Time: 10/02/23 11:20 Patient Disposition: Home Health Service Discharge Diagnosis: COVID-19 infection Referrals: Physician,None [Primary Care Provider] - 1 Week Discharge Medications: Continued midodrine 5 mg tablet 5 mg PO BID@0900,1800 Hold Instructions: blood pressure stable hold for now, follow up with pcp. Eliquis 5 mg tablet 5 mg PO BID Qty: 60 3RF Ure-Na 15 gram powder in packet 2 packet PO BID sodium chloride 1,000 mg tablet,soluble 2,000 mg PO BID levothyroxine 75 mcg capsule 75 mcg PO DAILY@0630 olanzapine 2.5 mg Tablet 2.5 mg PO BEDTIME dextromethorphan-guaifenesin 10-100 mg/5 mL Syrup 10 ml PO TID Qty: 237 0RF Rx Instructions: Use cough medication for 3-5 days ascorbate calcium (vitamin C) 500 mg tablet 500 mg PO DAILY ferrous sulfate 325 mg (65 mg iron) tablet 325 mg PO DAILY Discharge Orders: Discharge Order (Routine); Ordered 10/02/23 Ordered By: Tray Canales Diet: Advance to usual diet Activity on Discharge: As tolerated Stand Alone Forms: Patient Portal Discharge page Care Plan Goals: COVID 19 infection continue cough medication and rest G positive rods in 1/2 blood culture is contamination, no blood infection found Health Concerns: Continue all home medications Orthostatic hypotension Chronic hyponatremia Metastatic cancer with colostomy Plan of Treatment: Outpatient follow-up with primary care physician, Dr. Cisneros and Nephrology as previously planned Assessment: As above
--- NOTE | 2023-10-02 11:51 | MHC.CM.PN ---
Addendum entered by Lynne Tesfaye RN 10/02/23 11:57: IS IN ROOM TO TRANSPORT PATIENT HOME TODAY. Original Note: PATIENT IS DC HOME TODAY WITH RESUMPTION OF HIS [facility] SERVICES.
== END 2023-10-02 14:00 | disposition home health service (06) | DRG 178 ==
LOC: HO.ED 01:30 → HO.EDOVER 02:45 → HO.IMC 19:17
PROVIDERS: Admitting Provider Internal Medicine; Emergency Provider Emergency Medicine; PCP Internal Medicine; Visit Provider Hospitalist
DX: U07.1 COVID-19 (principal); C19 Malignant neoplasm of rectosigmoid junction; E44.0 Moderate protein-calorie malnutrition; E87.21 Acute metabolic acidosis; Z68.1 Body mass index [BMI] 19.9 or less, adult; C78.00 Secondary malignant neoplasm of unspecified lung; C79.89 Secondary malignant neoplasm of other specified sites; E86.0 Dehydration; R62.7 Adult failure to thrive; I95.1 Orthostatic hypotension; Z93.3 Colostomy status; Z86.711 Personal history of pulmonary embolism; Z87.891 Personal history of nicotine dependence; Z79.01 Long term (current) use of anticoagulants; Z79.890 Hormone replacement therapy; Z79.899 Other long term (current) drug therapy
CPT/HCPCS: 36415; 71045; 80048; 80053; 80076; 81003; 83605; 83735; 84145; 85025; 85652; 86140; 87040; 87635; 99285; J0692; J2543

== ENCOUNTER → 2023-10-01 02:40 | Outpatient (BNV) | payer OTHER, SELFPAY | PROVIDERS: Admitting Provider Internal Medicine; Emergency Provider Emergency Medicine; Visit Provider Internal Medicine | DX: U07.1 COVID-19 (principal); R78.81 Bacteremia; R62.7 Adult failure to thrive | CPT/HCPCS: 99223; 99239; 99499 ==

== ENCOUNTER 2023-10-12 13:30 | Outpatient (REF) | payer MEDICARE, SELFPAY ==
[2023-10-12 17:46] LABS: Anion Gap 10 (12-20); Blood Urea Nitrogen 44 mg/dL (9-16); Calcium 7.9 mg/dL (8.4-10.2); Carbon Dioxide 24 mmol/L (22-29); Chloride 101 mmol/L (96-108); Estimated Glomerular Filt Rate > 60; Glucose Random 92 mg/dL (60-115); Sodium 131 mmol/L (135-145)
== END 2023-10-12 13:31 | disposition home or self-care (01) ==
LOC: HO.HVNA 13:30
PROVIDERS: Visit Provider Internal Medicine
DX: E87.1 Hypo-osmolality and hyponatremia (principal)
CPT/HCPCS: 36415; 80048

== ENCOUNTER 2023-10-29 17:02 | Outpatient (REF) | payer OTHER, SELFPAY ==
[2023-10-29 17:54] LABS: Anion Gap 11 (12-20); Blood Urea Nitrogen 26 mg/dL (9-16); Carbon Dioxide 23 mmol/L (22-29); Chloride 100 mmol/L (96-108); Estimated Glomerular Filt Rate > 60; Glucose Random 82 mg/dL (60-115); Potassium 3.8 mmol/L (3.3-5.1); Sodium 130 mmol/L (135-145)
== END 2023-10-29 17:03 | disposition home or self-care (01) ==
LOC: HO.LNP 17:02
PROVIDERS: Visit Provider Internal Medicine
DX: E87.1 Hypo-osmolality and hyponatremia (principal)
CPT/HCPCS: 80048

== ENCOUNTER 2023-11-03 08:28 | Outpatient (AMB) | payer OTHER, SELFPAY ==
--- NOTE | 2023-11-03 08:28 | A.OFFVIS_ITS ---
Intake Intake Visit Reasons: 6M Follow Up(Renal Ca)Confirmed Intake Note: Patient presents today for a follow up on: Renal Ca. 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 He is a patient of Dr. Charles. He seen for the following urologic conditions - renal cancer Accompanied by who has undergone her own cancer therapy - she has now had a reversal of her colostomy and is clear Telemedicine Evaluation 15 min Consultation DoxNoiseFree Keaton Video attempted Currently in hospice care. No issues with urination. No hematuria, no put difficulty with urination Minimal urinary symptoms Discussed imaging results - February 2023 PET-CT - renal lesion 4.4 cm 10/15 PET-CT restaging colon cancer. Fannie g nodule positive. 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 [employer] Medical History Hyponatremia Pulmonary embolism Orthostatic hypotension Chronic orthostatic hypotension Hypothyroidism Chronic hyponatremia 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 Renal cell carcinoma Rectosigmoid cancer Pituitary lesion Fever of unknown origin Mass of pituitary Headache Colostomy in place HTN (hypertension) [place]-vesical fistula Surgical History History of removal of Port-a-Cath H/O hernia repair S/P colon resection Family History Mother Parkinsons disease Father ESRD (end stage renal disease) Other No family history of cancer Social History Household Members: Spouse Household Members Other:: with Housing: House Are you a primary childcare center director to a significant other at home: No Do you presently have visiting nurse or other home services: Yes (VNA 1xweek /Home health aide 3xweek) Alcohol intake: never Patient Tobacco Use Status: Former Tobacco user Quit Date: 30 y.o Tobacco use type: Cigarette Years Smoked: 30 years ago e-Cigarette/Vaping Use: Never Used Second Hand Smoke Exposure: No Advance Directives Date on File: 06/17/23 service: Yes Current occupational status: employed and retired Cognitive needs: No Hearing needs: No Vision needs: No Review of Systems Const All systems reviewed & are unremarkable except as noted in HPI and below Reports no additional complaints Resp Reports no additional complaints GI Reports no additional complaints Reports as per HPI Musc Reports no additional complaints Physical Exam Telemedicine evaluation Appropriate responses Regular breathing rate and rhythm HEENT Head: Yes normal to inspection Ears: hearing grossly normal bilaterally Eyes General: appearance normal, both eyes and all related structures Neck Neck: Yes normal visual inspection Chest Chest palpation & inspection: normal inspection of the chest Resp Effort & Inspection: normal respiratory effort and able to speak in complete sentences Assessment & Plan Assessment & Plan (1) Renal cell carcinoma: Code(s): C64.9 - Malignant neoplasm of unspecified kidney, except renal pelvis Qualifiers: Laterality: right Qualified Code(s): C64.1 - Malignant neoplasm of right kidney, except renal pelvis (2) Secondary male hypogonadism: Code(s): E29.1 - Testicular hypofunction Plan P.r.n. follow-up Patient Instructions: Imaging studies, laboratory and physical exam results were discussed and reviewed in detail. No major barriers to patient understanding were identified. An opportunity to ask questions regarding the treatment plan was provided. All questions were answered. The patient expressed understanding and agreement with the above treatment plan. The patient is aware they should contact our office by phone for worsening of their current condition or the appearance of new urologic symptoms. Compliance is encouraged with any medications and followup testing that is ordered. It is a privilege to participate in the urologic care of your patient. If you have any questions or concerns regarding treatment for the above conditions, or other urologic issues, please do not hesitate to contact me. The office telephone contact is [phone]. This note is constructed using voice recognition software. While every effort has been made to ensure accuracy vending route servicer errors may have been included. Yours sincerely, Dr Humberto Clark MD, JACQUELINE [facility] - Urology Providers of Expert, Compassionate Care for the Genitourinary System Telehealth Telehealth Location of provider rendering services: practice address Location of patient: address on file Patient Identification confirmed using: Name, : Yes Telehealth method: video Patient verbally consented to treatment: Yes Patient verbally consented to billing insurance company: Yes Patient informed of any privacy concerns related to visit: Yes Coding Level of Care Code Tele Est Pt Level 3 (83105) Diagnoses Renal cell carcinoma of right kidney C64.1 Laterality: right Secondary male hypogonadism E29.1
== END 2023-11-03 09:05 | disposition home or self-care (01) ==
LOC: HO.HUSH 08:28
PROVIDERS: PCP Internal Medicine; Visit Provider Urology
DX: C64.1 Malignant neoplasm of right kidney, except renal pelvis (principal); E29.1 Testicular hypofunction
CPT/HCPCS: 99213

== ENCOUNTER → 2023-11-03 08:28 | Outpatient (BNVA) | payer OTHER, SELFPAY | PROVIDERS: PCP Internal Medicine; Visit Provider Urology ==

== ENCOUNTER 2023-11-23 14:59 | Outpatient (REF) | payer OTHER, SELFPAY ==
[2023-11-23 16:22] LABS: Anion Gap 14 (12-20); Blood Urea Nitrogen 32 mg/dL (9-16); Calcium 8.5 mg/dL (8.4-10.2); Carbon Dioxide 25 mmol/L (22-29); Chloride 100 mmol/L (96-108); Estimated Glomerular Filt Rate > 60; Glucose Random 121 mg/dL (60-115); Potassium 3.8 mmol/L (3.3-5.1); Sodium 135 mmol/L (135-145)
== END 2023-11-23 15:00 | disposition home or self-care (01) ==
LOC: HO.HVNA 14:59
PROVIDERS: Visit Provider Internal Medicine
DX: E87.1 Hypo-osmolality and hyponatremia (principal)
CPT/HCPCS: 36415; 80048

== ENCOUNTER 2023-12-14 13:00 | Outpatient (REF) | payer OTHER, SELFPAY ==
[2023-12-14 17:14] LABS: Anion Gap 14 (12-20); Blood Urea Nitrogen 32 mg/dL (9-16); Calcium 8.2 mg/dL (8.4-10.2); Carbon Dioxide 22 mmol/L (22-29); Chloride 107 mmol/L (96-108); Estimated Glomerular Filt Rate > 60; Glucose Random 108 mg/dL (60-115); Potassium 3.9 mmol/L (3.3-5.1); Sodium 139 mmol/L (135-145)
== END 2023-12-14 13:01 | disposition home or self-care (01) ==
LOC: HO.HVNA 13:00
PROVIDERS: Visit Provider Internal Medicine
DX: E87.1 Hypo-osmolality and hyponatremia (principal)
CPT/HCPCS: 36415; 80048

== ENCOUNTER 2024-01-11 13:52 | Outpatient (REF) | payer OTHER, SELFPAY ==
[2024-01-11 15:00] LABS: Anion Gap 12 (12-20); Blood Urea Nitrogen 37 mg/dL (9-16); Calcium 8.6 mg/dL (8.4-10.2); Carbon Dioxide 25 mmol/L (22-29); Chloride 106 mmol/L (96-108); Estimated Glomerular Filt Rate > 60; Glucose Random 138 mg/dL (60-115); Sodium 139 mmol/L (135-145)
== END 2024-01-11 13:53 | disposition home or self-care (01) ==
LOC: HO.HVNA 13:52
PROVIDERS: Visit Provider Internal Medicine
DX: E87.1 Hypo-osmolality and hyponatremia (principal)
CPT/HCPCS: 36415; 80048

== ENCOUNTER 2024-02-10 17:03 | Outpatient (REF) | payer OTHER, SELFPAY ==
[2024-02-10 18:01] LABS: Anion Gap 17 (12-20); Blood Urea Nitrogen 27 mg/dL (9-16); Calcium 8.7 mg/dL (8.4-10.2); Carbon Dioxide 25 mmol/L (22-29); Chloride 104 mmol/L (96-108); Estimated Glomerular Filt Rate > 60; Glucose Random 146 mg/dL (60-115); Potassium 4.7 mmol/L (3.3-5.1); Sodium 141 mmol/L (135-145)
== END 2024-02-10 17:04 | disposition home or self-care (01) ==
LOC: HO.HVNA 17:03
PROVIDERS: Visit Provider Internal Medicine
DX: E87.1 Hypo-osmolality and hyponatremia (principal)
CPT/HCPCS: 36415; 80048

== ENCOUNTER 2024-03-09 13:42 | Outpatient (REF) | payer OTHER, SELFPAY ==
[2024-03-09 14:59] LABS: Anion Gap 15 (12-20); Blood Urea Nitrogen 38 mg/dL (9-16); Calcium 8.9 mg/dL (8.4-10.2); Carbon Dioxide 23 mmol/L (22-29); Chloride 104 mmol/L (96-108); Estimated Glomerular Filt Rate > 60; Glucose Random 133 mg/dL (60-115); Potassium 3.9 mmol/L (3.3-5.1); Sodium 138 mmol/L (135-145)
== END 2024-03-09 13:43 | disposition home or self-care (01) ==
LOC: HO.HVNA 13:42
PROVIDERS: Visit Provider Internal Medicine
DX: E87.1 Hypo-osmolality and hyponatremia (principal)
CPT/HCPCS: 36415; 80048

== ENCOUNTER 2024-04-06 10:00 | Outpatient (REF) | payer OTHER, SELFPAY ==
[2024-04-06 14:08] LABS: Alanine Aminotransferase 65 U/L (0-40); Albumin Level 3.2 g/dL (3.5-5.0); Alkaline Phosphatase 89 U/L (39-117); Anion Gap 14 (12-20); Aspartate Amino Transferase 33 U/L (5-37); Bilirubin Total 0.5 mg/dL (0.0-1.0); Blood Urea Nitrogen 39 mg/dL (9-16); Calcium 9.2 mg/dL (8.4-10.2); Carbon Dioxide 27 mmol/L (22-29); Chloride 103 mmol/L (96-108); Estimated Glomerular Filt Rate > 60; Glucose Random 154 mg/dL (60-115); Potassium 3.7 mmol/L (3.3-5.1); Sodium 140 mmol/L (135-145); Total Protein 5.7 g/dL (6.5-8.0)
[2024-04-06 14:10] LABS: Free T4 (Free Thyroxine) 0.73 ng/dL (0.71-1.85); Thyroid Stimulating Hormone 0.37 uIU/mL (0.32-4.0)
== END 2024-04-06 10:01 | disposition home or self-care (01) ==
LOC: HO.HMGCLNP 10:00
PROVIDERS: Visit Provider Internal Medicine
DX: E87.1 Hypo-osmolality and hyponatremia (principal); E03.9 Hypothyroidism, unspecified
CPT/HCPCS: 80053; 84439; 84443

== ENCOUNTER 2024-05-10 10:00 | Outpatient (REF) | payer OTHER, SELFPAY ==
[2024-05-10 16:45] LABS: Anion Gap 14 (12-20); Blood Urea Nitrogen 40 mg/dL (9-16); Calcium 9.3 mg/dL (8.4-10.2); Carbon Dioxide 27 mmol/L (22-29); Chloride 104 mmol/L (96-108); Estimated Glomerular Filt Rate > 60; Glucose Random 102 mg/dL (60-115); Sodium 141 mmol/L (135-145)
== END 2024-05-10 10:01 | disposition home or self-care (01) ==
LOC: HO.HVNA 10:00
PROVIDERS: Visit Provider Internal Medicine
DX: E87.1 Hypo-osmolality and hyponatremia (principal)
CPT/HCPCS: 36415; 80048

== ENCOUNTER 2024-06-08 12:00 | Outpatient (REF) | payer OTHER, SELFPAY ==
[2024-06-08 18:20] LABS: Anion Gap 16 (12-20); Blood Urea Nitrogen 15 mg/dL (9-16); Calcium 8.6 mg/dL (8.4-10.2); Carbon Dioxide 27 mmol/L (22-29); Chloride 98 mmol/L (96-108); Estimated Glomerular Filt Rate > 60; Glucose Random 286 mg/dL (60-115); Potassium 3.2 mmol/L (3.3-5.1); Sodium 138 mmol/L (135-145)
== END 2024-06-08 12:01 | disposition home or self-care (01) ==
LOC: HO.HVNA 12:00
PROVIDERS: Visit Provider Internal Medicine
DX: E87.1 Hypo-osmolality and hyponatremia (principal)
CPT/HCPCS: 36415; 80048

== ENCOUNTER 2024-07-10 12:45 | Outpatient (REF) | payer OTHER, SELFPAY ==
[2024-07-10 19:11] LABS: Anion Gap 15 (12-20); Blood Urea Nitrogen 18 mg/dL (9-16); Calcium 8.4 mg/dL (8.4-10.2); Carbon Dioxide 30 mmol/L (22-29); Chloride 94 mmol/L (96-108); Estimated Glomerular Filt Rate > 60; Glucose Random 409 mg/dL (60-115); Potassium 3.4 mmol/L (3.3-5.1); Sodium 136 mmol/L (135-145)
== END 2024-07-10 12:46 | disposition home or self-care (01) ==
LOC: HO.HVNA 12:45
PROVIDERS: Visit Provider Internal Medicine
DX: E87.1 Hypo-osmolality and hyponatremia (principal)
CPT/HCPCS: 36415; 80048

== ENCOUNTER 2024-09-25 12:48 | Outpatient (REF) | payer OTHER, SELFPAY ==
[2024-09-25 13:41] LABS: Anion Gap 13 (12-20); Blood Urea Nitrogen 13 mg/dL (9-16); Calcium 8.8 mg/dL (8.4-10.2); Carbon Dioxide 37 mmol/L (22-29); Chloride 94 mmol/L (96-108); Estimated Glomerular Filt Rate > 60; Glucose Fasting 107 mg/dL (60-99); Sodium 141 mmol/L (135-145)
--- OUTSIDE RECORDS SUMMARY | 2024-09-25 14:57 | XMS_ITS ---
Author Name [facility] [place] Organization [facility] [place] [facility] [place] Address [address] [place] [address] Care Team Providers Care Laminated Plastics Assembler And Gluer Name Role Phone CAT GARCIA Primary Care Provider Unav ailable Insurance Providers: All historical and current Section Date Range: From patient's date of to the date document was created. This section includes the names of all active insurance providers for the patient. Insurance Provider Type of Coverage Plan Name Start of Policy Coverage End of Policy Coverage Group Number Member ID Insurance Provider's Telephone Number Policy Matos's Name Patient's Relationship to Policy Matos Selected Encounter This section includes the information on record at MD for the Encounter. Date/Time Encounter Type Encounter Description Reason Provider Source Jan 03, 2024 10:00 AM [facility] OL DIG ASSMT&MGMT 5-10 CLINICAL PHARMACY ICD-10-CM Z04.89 Encounter for examination and observation for oth reasons SON ESCOBAR E Encounter Template Text not used by MD Assessments - Encounter Diagnoses This section includes the primary and secondary diagnoses documented for the Encounter. Date/Time Primary/Secondary Diagnosis Diagnosis Name Provider Source Jan 03, 2024 10:29 AM PRIMARY Encounter for examination and observation for oth reasons SON ESCOBAR [facility] Plan of Treatment: Future Appointments (+ 6 months) and Future Tests (+/- 45 days) The Plan of Treatment section includes future care activities for the patient from all [place] [facility]. This section includes future appointments and future orders which are active, pending or scheduled. Future Appointments This section includes appointments that were scheduled to occur 6 months from the date of the Encounter, up to a maximum of 20 appointments. The data comes from all [place] treatment facilities. Appointment Date/Time Appointment Type Appointme nt Facility Name Apr 05, 2024 09:00 AM AMBULATORY - MEDICINE [facility] Social History: Smoking Status (Most current) and Tobacco Use (All prior to encounter date) This section includes the most current, and the historical, smoking and tobacco- related health factors from the [place] facility where the Encounter took place. Current Smoking Status This section includes the most current smoking, or tobacco-related health factor, from the [place] facility where the Encounter took place. Date/Time Current Smoking Status Comment Facil ity Jul 28, 2023 10:00 AM MD-TOBACCO FORMER USER [facility] Tobacco Use History This section includes a history of the smoking, or tobacco-related health factors, that were collected on or before the date of the Encounter. The data comes from the [place] facility where the Encounter took place. Date/Time Smoking Status/Tobacco Use Comment F acility Jul 28, 2023 10:00 AM MD-TOBACCO [facility]IT [facility] Aug 03, 2022 04:31 PM [place]-[facility]ACCO [facility] Aug 03, 2022 04:31 PM MD-TOBACCO QUIT 15 YRS OR MORE [facility] Advance Directives: All historical and current Section Date Range: From patient's date of to the date document was created. This section includes ALL of a patient's completed or amended [place] Advance and Rescinded Directives. The entries below indicate that a directive exists for the patient, but an actual copy is not included with this document. The data comes from all [place] facilities. Date Advance Directives Provider Source Aug 27, 2022 ADVANCE DIRECTIVE RISSA YOO [facility] Encounter Notes: All associated encounter notes This section contains the clinical notes associated to the Encounter. Date/Time Encounter Note(s) Provider Source Jan 03, 2024 10:00 AM PHARMACY MEDICATION MGT NOTE: LOCAL TITLE: PHARMACY ANTICOAGULATION NOTE STANDARD TITLE: PHARMACY MEDICATION MGT NOTE DATE OF NOTE: JAN 03, 2024@10:00 ENTRY DATE: JAN 03, 2024@10:00:25 AUTHOR: DAVID BUSTILLOS COSIGNER: URGENCY: STATUS: COMPLETED PHARMACY ANTICOAGULATION NOTE Has ADDENDA ANTICOAGULATION DOAC MONITORING NOTE SUBJECTIVE: Patient identified through the DOAC population Management Tool based on the following criteria: [ ] Dosing Issue [ ] Critical Drug Interaction [ ] Cancer Treatment [ ] Active NSAID [ X ] Labs Overdue [ ] Prosthetic Valve Replacement [ ] Notable Lab Value [ ] Overdue for Refill [ ] Other: Comments: CBC and Serum creatinine recommended every 12mths for this patient on DOAC therapy OBJECTIVE: Indication for anticoagulation: [ ] Atrial fibrilation [ ] Atrial flutter [ X ] VTE (DVT or PE) [ ] Post-op DVT prophylaxis [ ] Other: Most recent lab values include the following: HGB: HGB No data available PLT: WBC No data available Liver Function Tests No data available for: AST ALT ALKALINE PHOSPHATASE ALBUMIN BILIRUBIN, TOTAL LDH PROTEIN,TOTAL HEIGHT: 74 in [188.0 cm] (08/27/2022 08:55) WEIGHT: 132 lb [59.87 kg] (03/11/2023 15:32) BMI: BMI: 17.0 CREATININE-EGFR - NONE FOUND CRCL IBW: Creat not found CRCL ACT: No Creat CRCL ADJ: <Not Found> ASSESSMENT: overdue labs Action required? [ ] Yes [ X ] No Comments: had labs drawn at [facility] and results found in [facility]. Patient had labs that were performed by a lab outside the [place]. These results were verified by reviewing a copy of the outside laboratory report. Patient reports outside Hgb results: Date: July 21, 2023 Results: 10.4 Location: Outside Healthcare Provider Patient reports outside HCT results: Date: July 21, 2023 Results: 31.8 Location: Outside Healthcare Provider Patient reports outside PLT results: Date: July 21, 2023 Results: 181 Location: Outside Healthcare Provider Patient reports outside SCR results: Date: July 21, 2023 Results: 0.62 Location: Outside Healthcare Provider Patient reports outside BUN results: Date: July 21, 2023 Results: 17 Location: Outside Healthcare Provider PLAN: [ X ] No action required, dismiss flag [ ] Will intervene: [ ] Patient education via phone/letter [ ] Schedule phone/[id number] follow up [ ] Lab ordered [ ] Discontinue interacting medication [ ] Discontinue DOAC [ ] Change to alternative DOAC [ ] Change DOAC dose [ ] Notify PCP [ ] Consult cardiology/hematology [ ] Other: Time spent: 10 min /cheryl/ DAVID BUSTILLOS CPHT Clinical Chips Screen Tender Signed: 01/03/2024 10:04 Receipt Acknowledged By: 01/03/2024 10:29 /mele Escobar PharmD, RAMILA Clinical Mailroom Messenger 01/03/2024 ADDENDUM STATUS: COMPLETED Above case reviewed as entered by [facility] Automatic Cigar Wrapper Tender. Agree with current assessment and plan of care for this patient's anticoagulation management as noted. /mele Escobar PharmD, RAMILA Clinical Mailroom Messenger Signed: 01/03/2024 10:29 DAVID BUSTILLOS MD [facility]
--- OUTSIDE RECORDS SUMMARY | 2024-09-25 14:57 | XMS_ITS ---
Author Name [facility] [place] Organization [facility] [place] [facility] [place] Address [address] [place] [id number] Care Team Providers Care Cell Tester Name Role Phone CAT GARCIA Primary Care [...] section includes the information on record at [place] for the Encounter. Date/Time Encounter Type Encounter Description Reason Pro vider Source Sep 22, 2024 12:34 PM Outpatient Encounter ADMIN PAT ACTIVTIES (MASNONCT) IHE Encounter Template Text not used by [place] Plan of Treatment: Future Appointments (+ 6 months) and Future Tests (+/- 45 days) The Plan of Treatment section includes future care activities for the patient from all [place] treatmentfacilities. This section includes future appointments and future orders which are active, pending or scheduled. Future Appointments This section includes appointments that were scheduled to occur 6 months from the date of the Encounter, up to a maximum of 20 appointments. The data comes from all [place] treatment facilities. Appointment Date/Time Appointment Type Appointme nt Facility Name Oct 19, 2024 09:00 AM AMBULATORY - MEDICINE [place] [facility] [place] [facility] Active, Pending, and Scheduled Orders This section includes a listing of several types of active, pending, and scheduled orders, including clinic medications orders, diagnostic test orders, procedure orders and consult orders; where the start date of the order is 45 days before the date of the Encounter or 45 days after the date of theEncounter. The data comes from all [place] treatment facilities. Test Date/Time Test Type Test Details Facility Name Aug 21, 2024 12:00 AM Laboratory - Chemistry Order CREATININE (eGFR 2020) BLOOD (SST-SERUM) [facility] Aug 21, 2024 12:00 AM Laboratory - Chemistry Order CBC BLOOD (LAV-BLOOD) [facility] Social History: Smoking Status (Most current) and Tobacco Use (All prior to encounter date) This section includes the most current, and the historical, smoking and tobacco- related health factors from the [place] facility where the Encounter took place. Current Smoking Status This section includes the most current smoking, or tobacco-related health factor, from the [place] facility where the Encounter took place. Date/Time Current Smoking Status Comment Facil ity Jul 28, 2023 10:00 AM [place]-TOBACCO FORMER USER [facility] Tobacco Use History This section includes a history of the smoking, or tobacco-related health factors, that were collected on or before the date of the Encounter. The data comes from the [place] facility where the Encounter took place. Date/Time Smoking Status/Tobacco Use Comment F acility Jul 28, 2023 10:00 AM [place]-TOBACCO QUIT 15 YRS OR MORE [facility] Aug 03, 2022 04:31 PM VA-TOBACCO FORMER USER [facility] Aug 03, 2022 04:31 PM [place]-TOBACCO QUIT 15 YRS OR MORE [facility] Advance Directives: All historical and current Section Date Range: From patient's date of to the date document was created. This section includes ALL of a patient's completed or amended [place] Advance and Rescinded Directives. The entries below indicate that a directive exists for the patient, but an actual copy is not included with this document. The data comes from all [place] facilities. Date Advance Directives Provider Source Aug 27, 2022 ADVANCE DIRECTIVE SONI YOO [facility] [place] [facility] Encounter Notes: All associated encounter notes This section contains the clinical notes associated to the Encounter. Date/Time Encounter Note(s) Provider Source Sep 22, 2024 12:34 PM ADMINISTRATIVE NOT E: LOCAL TITLE: CCC: SCHEDULING ADMINISTRATION STANDARD TITLE: ADMINISTRATIVE NOTE DATE OF NOTE: SEP 22, 2024@12:34 ENTRY DATE: SEP 22, 2024@12:34:32 AUTHOR: HELIO BUTT EXP COSIGNER: URGENCY: STATUS: COMPLETED CCC: SCHEDULING ADMINISTRATION Has ADDENDA EDUAR ( ) CALLED AND CANCELLED PCP APPT FOR SEPTEMBER 28, 2024 AND WOULD LIKE TO SPEAK WITH TEAM IN REF TO GETTING A TEL APPT DUE TO PT IS NOT IN [facility] TO COME INTO CLINIC. PLEASE CALL [phone] /cheryl/ HELIO BUTT Medical Convention Manager Signed: 09/22/2024 12:38 Receipt Acknowledged By: 09/25/2024 10:14 /cheryl/ MARIO TAM REGISTERED NURSE 09/24/2024 16:33 /cheryl/ Soni Yoo RN Primary Care Staff Nurse 09/24/2024 ADDENDUM STATUS: COMPLETED Added PCP- is requesting tele appt instead of f2f on 09/28 due to Vets poor health. /cheryl/ Soni Yoo RN Primary Care Staff Nurse Signed: 09/24/2024 16:33 Receipt Acknowledged By: * AWAITING SIGNATURE * CAT GARCIA * AWAITING SIGNATURE * JONATHAN BOSS DIANE M [facility]
--- OUTSIDE RECORDS SUMMARY | 2024-09-25 14:57 | XMS_ITS ---
Author Name [facility] [place] Address [address] [place] [address] Care Team Providers Care Instructor Looping Name Role Phone CAT GARCIA Primary Care [...] section includes the information on record at [place] for the Encounter. Date/Time Encounter Type Encounter Description Reason Pro vider Source December 09, 2023 02:00 PM Outpatient Encounter PRIMARY CARE/MEDICINE I[facility] Encounter Template Text not used by [place] Plan of Treatment: Future Appointments (+ 6 months) and Future Tests (+/- 45 days) The Plan of Treatment section includes future care activities for the patient from all [place] treatmentfacilities. This section includes future appointments and future orders which are active, pending or scheduled. Future Appointments This section includes appointments that were scheduled to occur 6 months from the date of the Encounter, up to a maximum of 20 appointments. The data comes from all [place] treatment facilities. Appointment Date/Time Appointment Type Appointme nt Facility Name December 21, 2023 10:00 AM AM[facility]ULATORY - [facility] Apr 05, 2024 09:00 AM AMBULATORY - MEDICINE [facility] Social History: Smoking Status (Most current) and Tobacco Use (All prior to encounter date) This section includes the most current, and the historical, smoking and tobacco- related health factors from the [place] facility where the Encounter took place. Current Smoking Status This section includes the most current smoking, or tobacco-related health factor, from the [place] facility where the Encounter took place. Date/Time Current Smoking Status Comment Mao ity Jul 28, 2023 10:00 AM [place]-TOBACCO FORMER USER [facility] Tobacco Use History This section includes a history of the smoking, or tobacco-related health factors, that were collected on or before the date of the Encounter. The data comes from the [place] facility where the Encounter took place. Date/Time Smoking Status/Tobacco Use Comment Jhony acrima Jul 28, 2023 10:00 AM [place]-TOBACCO QUIT 15 YRS OR MORE [facility] Aug 03, 2022 04:31 PM [facility]ACCO [facility] Aug 03, 2022 04:31 PM [place]-TOBACCO QUIT 15 YRS OR MORE [facility] Advance Directives: All historical and current Section Date Range: From patient's date of to the date document was created. This section includes ALL of a patient's completed or amended [place] Advance and Rescinded Directives. The entries below indicate that a directive exists for the patient, but an actual copy is not included with this document. The data comes from all [place] facilities. Date Advance Directives Provider Source Aug 27, 2022 ADVANCE DIRECTIVE RISSA YOO [facility] Encounter Notes: All associated encounter notes This section contains the clinical notes associated to the Encounter. Date/Time Encounter Note(s) Provider Source December 09, 2023 08:54 AM PHYSICIAN TELEPHON E ENCOUNTER NOTE: LOCAL TITLE: TELEPHONE NOTE/MD STANDARD TITLE: PHYSICIAN TELEPHONE ENCOUNTER NOTE DATE OF NOTE: DECEMBER 09, 2023@08:54 ENTRY DATE: DECEMBER 09, 2023@08:54:47 AUTHOR: MARTINEZ GARCIA EXP COSIGNER: URGENCY: STATUS: COMPLETED Called this vet and his today re; many medical concerns: vet is weaker than he has been in past few mos. describes episode where vet fell at home at 4am and supply controller counselled vet NOT to move around house without wheelchair/he agrees. also report she will have her outside stairs modified to allow easier access and his serum sodium is stable on lower dose of urea ( 2 packets bid caused too much GI upset for vet). His midodrine was discontinued as his BP is stable and he is on decadron now. appreciated phone call and wants to talk again in approx 6 weeks/ok to book appt for F2f visit knowing that we will likely plan only for phone call around 01/19 or 01/25 /cheryl/ CAT GARCIA MD PHYSICIAN Signed: 12/09/2023 14:37 Receipt Acknowledged By: 01/19/2024 14:33 /cheryl/ JONATHAN BOSS Advanced Aoc Operations Intelligence Officer 12/09/2023 14:57 /cheryl/ MOSES BYERS Registered Nurse for MARTINEZ ESPINOSA [place] [facility]
--- OUTSIDE RECORDS SUMMARY | 2024-09-25 14:57 | XMS_ITS | Clinical Summary ---
Author Organization [facility] Address [address] [facility] [address] [place] [address] Phone Care Team Providers Care Machine Design Engineer Name Role Phone Drew Garcia MD Primary Care Provider + Allergies No known active allergies Medications capecitabine (XELODA) 500 MG chemo tablet Take 2,000 mg/m2 by mouth 2 (two) times a day Swallow whole with water. Do not crush or cut. Active ondansetron ODT (ZOFRAN-ODT) 8 MG dispersible tablet Take 8 mg by mouth every 8 (eight) hours if needed for nausea or vomiting Active Calcium Ascorbate 500 MG tablet Take 1 tablet by mouth daily Active ferrous sulfate 325 (65 Fe) MG tablet Take 325 mg by mouth 1 (one) time each day with breakfast Active Eliquis 5 MG tablet Take 2 tablets by mouth 2 (two) times a day 2 Active loperamide (IMODIUM) 2 MG capsule Take 2 mg by mouth 4 (four) times a day if needed for diarrhea Active levothyroxine (SYNTHROID, LEVOTHROID) 25 MCG tablet Take 1 tablet (25 mcg total) by mouth 1 (one) time each day 30 tablet 3 Active midodrine (PROAMATINE) 5 MG tablet Take 1 tablet (5 mg total) by mouth in the morning and 1 tablet (5 mg total) in the evening and 1 tablet (5 mg total) before bedtime. 90 tablet 11 3 Active sodium chloride 1 g tablet Take 2 g by mouth in the morning and 2 g in the evening. Active OLANZapine (ZyPREXA) 2.5 MG tablet Take 2.5 mg by mouth 1 (one) time each day in the evening 3 Active dexamethasone (DECADRON) 4 MG tablet Take 4 mg by mouth in the morning and 4 mg in the evening. 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 1 Overview (05/19/2023): Aug 27, 2022 Entered By: DREW GARCIA Comment: right kidney 5.6 cm mass found on Abd CT aug 2021/ at time of colon cancer dx/ Dr Clark-Urology will manage Malignant neoplasm of unspecified renal pelvis 1 05/19/2023 Need for assistance with personal care 05/19/2023 Orthostatic hypotension 02/03/2022 Hypertension 07/26/2021 05/19/2023 Resolved Problems Problem Noted Date Diagnosed Date Resolved Date Body mass index less than 20 05/19/2023 05/19/2023 05/19/2023 Overview (05/19/2023): Aug 27, 2022 Entered By: DREW GARCIA Comment: vet states wt loss has stabilized from effects of cancer and surgery Colostomy present 05/19/2023 05/19/2023 05/19/2023 Disorder of teeth and suppor ting structures, unspecified 05/19/2023 05/19/2023 05/19/2023 Dry eye syndrome of bilateral lacrimal glands 05/19/20 23 05/19/2023 05/19/2023 Encounter for fitting and ad justment of hearing aid 05/19/2023 05/19/2023 05/19/2023 Encounter for fitting and ad justment of spectacles and contact lenses 05/19/2023 05/19/2023 05/19/2023 Encounter for immunization 05/19/2023 05/19/2023 1 Encounter for other administ rative examination 05/19/2023 05/19/2023 05/19/[address] champion level monitoring 05/19/2023 05/19/2023 05/19/2023 Hearing loss 05/19/2023 05/19/2023 05/19/2023 History of malignant neoplasm of colon 05/19/202305/19/2023 Overview (05/19/2023): Aug 27, 2022 Entered By: DREW GARCIA Comment: w/ mets to lungs/ stage 4/ Dr Amee Naranjo oncologist/Teo [facility]OW[facility]Lisa oncologist Long-term current use of anticoagulant 05/19/202305/19/2023 Malignant neoplasm of rectum 05/19/2023 05/19/2023 05/19/2023 Other specified counseling 05/19/2023 05/19/2023 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 05/19/202305/19 Sensorineural hearing loss, bilateral 05/19/202305/19/2023 Visual impairment 05/19/2023 05/19/2023 05/19/2023 Weakness 05/19/2023 05/19/2023 05/19/2023 Cancer 05/28/2022 05/19/2023 05/19/2023 Malignant tumor of pituitary gland 05/28/2022202205/19/2023 Carcinoma of colon, stage III 02/03/2022 05/19/2023 Hypo-osmolality and hyponatremia 02/03/2022 05/19/2023 Pituitary mass 12/04/2021 05/19/2023 Secondary malignant neoplasm of brain 10/31/2021 02/03/2022 Hyponatremia 07/26/2021 05/19/2023 05/19/2023 Overview (05/19/2023): November 25, 2022 Entered By: DREW GARCIA Comment: due to [facility]AD[facility] due to brain mets- resolved- 2022 labs at [place] -Sodium 139 Pulmonary embolism 07/26/2021 05/19/2023 Immunizations Name Administration Dates Next Due Influenza, Unspecified 05/26/2022 Moderna SARS-COV-2 05/14/2021,10/26/2020, 021 Pfizer SARS-COV-2 05/14/2021,10/26/2020,10/06/19 21 Pneumococcal Conjugate 08/27/2022 Social History Tobacco Use Types Packs/Day Years Used Date Smoking Tobacco: Former Cigarettes Smokeless Tobacco: Never Tobacco Cessation:Counseling Given: Not Answered Alcohol Use Standard Drinks/Week Comments Not Currently 0 (1 standard drink = 0.6 oz pur e alcohol) Sex and Gender Information Value Date Recorded Sex Assigned at Not on file Legal Sex Male 8:53 AM EDT Gender Identity Not on file Sexual Orientation Not on file Last Filed Vital Signs Vital Sign Reading Time Taken Comments Blood Pressure 110/78 05/20/2023 8:46 AM EDT Pulse 86 05/20/2023 8:46 AM EDT Temperature - - Respiratory Rate - - Oxygen Saturation 96% 05/20/2023 8:46 AM EDT Inhaled Oxygen Concentration - - Weight 63.5 kg (140 lb) 05/20/2023 8:46 AM EDT Height 182.9 cm (6') 05/20/2023 8:46 AM EDT Body Mass Index 18.99 05/20/2023 8:46 AM EDT Plan of Treatment Health Maintenance Due Date Last Done Comments Pneumococcal Vaccine: 65+ Ye ars (1 of 2 - PCV) 1956 08/27/2022 Colorectal Cancer Screening: Annual FOBT 1999 Colorectal Cancer Screening: Colonoscopy 1999 Colorectal Cancer Screening: Sigmoidoscopy 1999 Influenza Vaccine (#1) 2024 05/26/2022 Hepatitis B Vaccine Aged Out No longe r eligible based on patient's age to complete this topic Insurance [facility] 1,2,3 ([facility]) [facility] 1,2,3 ([facility]) Care Teams Machine Design Engineer Relationship Specialty Start Date End Date Drew Garcia MD [address] [place] [id number] PCP - General Internal Medicine 05/20/23
--- OUTSIDE RECORDS SUMMARY | 2024-09-25 14:57 | XMS_ITS | Continuity of Care Document ---
Author Name [facility] Organization [facility] Care Team Providers Care Subassemblies Wirer Name Role Phone [facility] Unavailable Unavailable Problems Combined list of problems from Department of Defense and Veterans Affairs facilities. It does not include entries that were removed or entered in error. 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- 2022 labs at [place] -Sodium 139 [facility] Pulmonary embolism Active 07/26/19 22 Condition [facility] Body mass index less than 20 Active Condition Aug 27, 2022 Entered By: CAT GARCIA Comment: vet states wt loss has stabilized from effects of cancer and surgery [facility] Clear cell renal cell carcinoma Active Condition Aug 27, 2022 Entered By: CAT GARCIA Comment: right kidney 5.6 cm mass found on Abd CT aug 2021/ at time of colon cancer dx/ Dr Clark-Urology will manage [facility] Colostomy present Active Condition [facility] Hearing Loss (SCT [id number]) Active Condition [facility] History of malignant neoplasm of colon Active Condition Aug 27, 2022 Entered By: CAT GARCIA Comment: w/ mets to lungs/ stage 4/ Dr Amee jacques oncologist/Yolette DOWD rad. oncologist [facility] Hypothyroidism (SCT [id number]) Active Condition [facility] Impaired vision Active Condition [facility] Long-term current use of anticoagulant Active Condition [facility] ([id number]) Peripheral oedema Active Condition Se p 2023 Entered By: CAT GARCIA Comment: vet has had mild low sodium/multif actorial-flui d retention due to SIADH plus inactivity/st eroids [facility] Pituitary macroadenoma [facility] Unstable when walking Active Condition Jul 28, 2023 Entered By: CAT GARCIA Comment: vet needs wheelchair most of the time and uses walker at other times- due to metastatic cancer [facility] Diagnosis: ICD-10-CM Z04.89 Encounter for examination and observation for oth reasons Active Diagnosis [facility] Diagnosis: ICD-10-CM C65.9 Malignant neoplasm of unspecified renal pelvis Active [facility] Diagnosis: ICD-10-CM L60.3 Nail dystrophy Active Diagnosis [facility] Diagnosis: ICD-10-CM K08.9 Disorder of teeth and supporting structures, unspecified Active Diagnosis [facility] Diagnosis: ICD-10-CM 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 Active Diagnosis [facility] Diagnosis: ICD-10-CM C20 Malignant neoplasm of rectum Active Diagnosis [facility] Diagnosis: ICD-10-CM Z46.1 Encounter for fitting and adjustment of hearing aid Active Diagnosis [facility] Diagnosis: ICD-10-CM Z46.0 Encounter for fit/adjst of spectacles and contact lenses Active Diagnosis [facility] Diagnosis: ICD-10-CM E87.1 Hypo-osmolality and hyponatremia Active Diagnosis [facility] Medications Combined list of outpatient medications from Department of Defense and Veterans Affairs facilities.Medications provided include 1) outpatient medications from the last 15 months, and 2) patient-reported medications. Medication Details Route Status Patient Instructions Prescription Expires Prescription Number Last Dispense Date Ordering Provider Order Date Order Qty Source APIXABAN 5MG TAB TAKE ONE-HALF TABLET BY MOUTH EVERY 12 HOURS FOR PREVENTI ON OF BLOOD CLOTS ORAL ACTIVE 08/02/2025 [id number] KELVIN ROCHA 2024 90 [facility] APIXABAN 5MG TAB TAKE ONE-HALF TABLET BY MOUTH EVERY 12 HOURS FOR PREVENTI ON OF BLOOD CLOTS ORAL DISCONT INUED (EDIT) 09/20/2024 [id number] KELVIN ROCHA 2023 90 [facility] APIXABAN 5MG TAB TAKE ONE TABLET BY MOUTH EVERY 12 HOURS FOR PREVENTI ON OF BLOOD CLOTS ORAL DISCONT INUED (EDIT) 09/16/2024 [id number] 4 KELVIN ROCHA 2023 180 [facility] APIXABAN 5MG TAB TAKE ONE TABLET BY MOUTH TWICE DAILY ORAL DISCONT INUED (EDIT) 04/29/2024 [id number] 4 LANDA 2022 60 [facility] ASCORBIC ACID 500MG TAB TAKE ONE TABLET BY MOUTH ONCE DAILY ORAL ACTIVE KELVIN ROCHA 2022 [facility] FERROUS SO4 325MG TAB TAKE ONE TABLET BY MOUTH ONCE DAILY ORAL ACTIVE KELVIN ROCHA 2022 [facility] LEVOTHYROXI NE NA 75MCG TAB TAKE ONE TABLET BY MOUTH ONCE DAILY FOR THYROID TAKE ON AN EMPTY STOMACH WITH A FULL GLASS OF WATER ORAL 09/09/2024 [id number] 4 KELVIN ROCHA 2023 90 [facility] LEVOTHYROXI NE NA 75MCG TAB (SYNTHROID) TAKE ONE TABLET BY MOUTH ONCE DAILY TAKE ON AN EMPTY STOMACH WITH A FULL GLASS OF WATER ORAL DISCONT INUED (EDIT) 07/28/2024 [id number] 4 KELVIN ROCHA 2023 90 [facility] MIDODRINE HCL 5MG TAB TAKE ONE TABLET BY MOUTH THREE TIMES A DAY ORAL DISCONT INUED (EDIT) 03/15/2024 [id number] 4 KELVIN ROCHA 2022 270 [facility] MIDODRINE HCL 5MG TAB TAKE ONE TABLET BY MOUTH THREE TIMES A DAY FOR LOW BLOOD PRESSURE ORAL 09/09/2024 [id number] 4 KELVIN ROCHA 2023 270 [facility] MINERAL OIL,LIGHT/P ETROLATUM (PF) OINT,OPH APPLY SMALL AMOUNT INTO EACH EYE AT BEDTIME NEEDED OPHTHA LMIC 05/28/2024 [id number] 4 MERHAR,NO AH B 2022 1 [facility] OLANZAPINE 2.5MG TAB TAKE ONE TABLET BY MOUTH AT BEDTIME ORAL DISCONT INUED (EDIT) 06/14/2024 [id number] 4 YESIKA ZARAGOZA 2022 30 [facility] OLANZAPINE 2.5MG TAB TAKE ONE TABLET BY MOUTH AT BEDTIME FOR DEPRESSI ON WITH BIPOLAR DISORDER ORAL 09/16/2024 [id number] 4 KELVIN ROCHA 2023 90 [facility] SODIUM BICARBONATE 325MG TAB TAKE ONE TABLET BY MOUTH TWICE DAILY ORAL ACTIVE KELVIN ROCHA 2022 [facility] SODIUM CHLORIDE 1GM TAB TAKE TWO TABLETS BY MOUTH TWICE DAILY SODIUM REPLETIO N ORAL ACTIVE 01/19/2025 [id number] 4 KELVIN ROCHA 2023 400 [facility] SODIUM CHLORIDE 1GM TAB TAKE TWO TABLETS BY MOUTH TWICE DAILY SODIUM REPLETIO N ORAL DISCONT INUED (EDIT) 03/11/2024 [id number] 4 KELVIN ROCHA 2022 400 [facility] UREA 15GM/PKT PWDR,ORAL TAKE 2 PACKETS BY MOUTH TWICE DAILY (MIX WITH 3 TO 4 OUNCES OF WATER OR JUICE) ORAL ACTIVE 09/28/2024 [id number] 4 KELVIN ROCHA 2023 120 [facility] UREA 15GM/PKT PWDR,ORAL TAKE 1 PACKET BY MOUTH THREE TIMES A DAY FOR HYPONATR EMIA (MIX WITH 3 TO 4 OUNCES OF WATER OR JUICE) ORAL DISCONT INUED (EDIT) 09/27/2024 [id number] 4 KELVIN ROCHA 2023 240 [facility] UREA 15GM/PKT PWDR,ORAL TAKE 1 PACKET BY MOUTH THREE TIMES A DAY FOR HYPONATR EMIA (MIX WITH 3 TO 4 OUNCES OF WATER OR JUICE) ORAL DISCONT INUED (EDIT) 09/16/2024 [id number] 4 KELVIN ROCHA 2023 96 [facility] UREA 15GM/PKT PWDR,ORAL TAKE 1 PACKET BY MOUTH TWICE DAILY (MIX WITH 3 TO 4 OUNCES OF WATER OR JUICE) ORAL DISCONT INUED (EDIT) 07/28/2024 [id number] 4 KELVIN ROCHA 2023 56 [facility] Immunizations Combined list of available immunizations from the Department of Defense and Veterans Affairs facilities. Immunization Series Date Given Administered By Site Reaction Lot Number CVX Code Drug Prop Attendant Status Comments Source INFLUENZA, HIGH-DOSE, TRIVALENT, PF 2023 DEVYN FOOTE LEFT DELTO ID [id number] 135 complet ed [facility] PNEUMOCOCCAL CONJUGATE PCV20, POLYSACCHARID E [id number] CONJUGATE, ADJUVANT, PF 2022 BEKA BOWEN LEFT DELTO ID [id number] 216 complet ed [facility] INFLUENZA, UNSPECIFIED FORMULATION 2021 88 complet ed Vet's record [facility] COVID-19 (MODERNA), MRNA, LNP-S, PF, 100 MCG/0.5ML DOSE OR 50 MCG/0.25ML DOSE 3 2020 207 complet ed Vet's Covid card Lot#: [id number] Mfr: [employer] [facility] COVID-19 (PFIZER), MRNA, LNP-S, PF, 30 MCG/0.3 ML DOSE 3 2020 208 complet ed [facility] COVID-19 (MODERNA), MRNA, LNP-S, PF, 100 MCG/0.5ML DOSE OR 50 MCG/0.25ML DOSE 2 2020 207 complet ed Vet's covid card Lot#: [id number] Mfr: [employer] [facility] COVID-19 (PFIZER), MRNA, LNP-S, PF, 30 MCG/0.3 ML DOSE 2 2020 208 complet ed [facility] COVID-19 (MODERNA), MRNA, LNP-S, PF, 100 MCG/0.5ML DOSE OR 50 MCG/0.25ML DOSE 1 2020 207 complet ed Vet's covid card Lot#: [id number] Mfr: [employer] [facility] COVID-19 (PFIZER), MRNA, LNP-S, PF, 30 MCG/0.3 ML DOSE 1 2020 208 complet ed [facility] Vital Signs Combined list of inpatient and outpatient Vital Signs from Department of Defense and Veterans Affairs, ranging from 12 months to all on record, depending upon the facility. Vital Sign Value Date Comments Source SYSTOLIC BLOOD PRESSURE 109 04/05/20 24 09:02:46 [facility] DIASTOLIC BLOOD PRESSURE 69 024 09:02:46 [facility] PULSE OXIMETRY 96 04/05/2024 09:02:46 [facility] WEIGHT 198.8 04/05/2024 09:02:46 [facility] BMI 26 kg/m2 04/05/2024 09:02:46 [facility] PAIN 0 04/05/2024 09:02:46 [facility] TEMPERATURE 98 04/05/2024 09:02:46 [facility] PULSE 103 04/05/2024 09:02:46 [facility] RESPIRATION 16 04/05/2024 09:02:46 [facility] SYSTOLIC BLOOD PRESSURE 111 12/21/19 10:24:17 [facility] DIASTOLIC BLOOD PRESSURE 66 024 10:24:17 [facility] PULSE OXIMETRY 99 12/21/2023 10:24:17 [facility] PAIN 0 12/21/2023 10:24:17 [facility] TEMPERATURE 98.2 12/21/2023 10:24:17 [facility] PULSE 99 12/21/2023 10:24:17 [facility] RESPIRATION 18 12/21/2023 10:24:17 [facility] Encounters Combined list of: 1) Encounters from Department of Veterans Affairs facilities going backup to the last 18 months, not all VA inpatient encounters are included; 2) Encounters from the Department of Defense facilities going backup to 280 months. Location Location Details Encounter Type Encounter Number Reason For Visit Attending Provider ADM Date DC Date Status Disposition Source [facility] Outpatient Encounter [id number] 03/31 [facility] Out[facility] Encounter [id number] 04/21 [facility] Out[facility]counter [id number] 04/23 [facility] Out[facility]counter [id number] 04/27 [facility] Outpatient [facility]counter [id number] 04/28 [facility] Out[facility]counter [id number] 04/28 [facility] Out[facility]counter [id number] 04/29 [facility] Out[facility] Encounter [id number] 05/02 [facility] Out[facility] Encounter [id number] 05/02 [facility] Out[facility] Encounter [id number] 05/07 [facility] Out[facility] Encounter [id number] 05/12 [facility] OFFICE O/P EST LOW 20-29 MIN [id number] Diagnos is: ICD-10- CM E87.1 Hypo-os molalit y and hyponat remia CAT VILLALOBOS 05/13 [facility] Out[facility] Encounter [id number] JESSICHLOE L 05/14 [facility] Out[facility] Encounter [id number] 05/20 [facility] Out[facility] Encounter [id number] 05/24 [facility] REMOVABLE PROSTHODON TIC PROC [id number] Diagnos is: ICD-10- CM K08.9 Disorde r of teeth and support ing structu res, unspeci OCTAVIO Hsu 05/28 [facility] REPAIR & ADJUST SPECTACLES [id number] Diagnos is: ICD-10- CM Z46.0 Encount er for fit/adj st of spectac les and contact lenses SOLITARIO LUA 05/28 [facility] Outpatient Encounter [id number] DONG YOO 06/11 [facility] Out[facility] Encounter [id number] 06/15 [facility] Out[facility] Encounter [id number] 06/17 [facility] Out[facility] Encounter [id number] 06/21 [facility] Out[facility] Encounter [id number] 06/22 [facility] Out[facility] Encounter [id number] 06/22 [facility] Out[facility] Encounter [id number] CHLOE BOWEN 06/22 [facility] REMOVABLE PROSTHODON TIC PROC [id number] Diagnos is: ICD-10- CM K08.9 Disorde r of teeth and support ing structu res, unspeci OCTAVIO Hsu 06/23 [facility] HEARING AID REPAIR/MOD IFYING [id number] Diagnos is: ICD-10- CM Z46.1 Encount er for fitting and adjustm ent of hearing aid MAIDA LUCERO 06/23 [facility] Outpatient Encounter [id number] 06/23 [facility] Outpatient [facility]counter [id number] 06/28 [facility] Outpatient Encounter [id number] 07/02 [facility] Out[facility] Encounter [id number] 07/02 [facility] Out[facility] Encounter [id number] 07/15 [facility] Out[facility] Encounter [id number] 07/20 [facility] Out[facility] Encounter [id number] 07/21 [facility] Out[facility] Encounter [id number] 07/21 [facility] Out[facility] Encounter [id number] 07/21 [facility] OFFICE O/P EST MOD 30 MIN [id number] Diagnos is: ICD-10- CM C20 Maligna nt neoplas m of rectum CAT VILLALOBOS 07/28 [facility] Out[facility] Encounter [id number] 07/29 [facility] HC PRO PHONE CALL 5-10 MIN [id number] Diagnos is: ICD-10- CM C20 Maligna nt neoplas m of rectum KRISTI PENA 07/29 [facility] DENTURES COMPLETE MAXILLARY [id number] Diagnos is: ICD-10- CM K08.9 Disorde r of teeth and support ing structu res, unspeci OCTAVIO Hsu 07/30 [facility] Outpatient Encounter [id number] 08/04 [facility] Out[facility] Encounter [id number] 08/05 [facility] Out[facility] Encounter [id number] ANANYA RODRIGUEZ 08/10 [facility] Out[facility] Encounter [id number] 08/10 [facility] Out[facility] Encounter [id number] 08/20 [facility] Out[facility] Encounter [id number] 08/24 [facility] Out[facility]counter [id number] 08/24 [facility] Out[facility] Encounter [id number] 09/02 [facility] Encounter [id number] 09/06 [facility] Out[facility]counter [id number] 09/09 [facility] Out[facility] Encounter [id number] 09/16 [facility] QNHP OL DIG ASSMT&MGMT 5-10 [id number] Diagnos is: ICD-10- CM 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 KIET Villareal 09/20 [facility] Out[facility] En[facility] [id number] 09/26 [facility] Out[facility]counter [id number] 09/27 [facility] Out[facility] Encounter [id number] DONG YOO 09/27 [facility] Out[facility] Encounter [id number] 09/30 [facility] Out[facility]counter [id number] 09/30 [facility] Out[facility] Encounter [id number] 10/03 [facility] Out[facility] Encounter [id number] 10/03 [facility] DENTURE RELN CMPLT [facility] [id number] Diagnos is: ICD-10- CM K08.9 Disorde r of teeth and support ing structu res, unspeci OCTAVIO Hsu 10/07 [facility] Out[facility] En[facility] [id number] 10/14 [facility] Out[facility] Encounter [id number] ANANYA RODRIGUEZ 10/31 [facility] Out[facility] Encounter [id number] 11/01 [facility] Out[facility] Encounter [id number] 11/02 [facility] Out[facility] Encounter [id number] 11/09 [facility] Out[facility]counter [id number] 11/11 [facility] Out[facility]counter [id number] 11[facility]15 [facility] Out[facility]counter [id number] 11/15 [facility] Out[facility] Encounter [id number] 11/25 [facility] Out[facility] Encounter [id number] 11/25 [facility] Out[facility] Encounter [id number] 12/08 [facility] Out[facility] Encounter [id number] 12/12 [facility] OFFICE O/P NEW SF 15 MIN [id number] Diagnos is: ICD-10- CM L60.3 Nail dystrop hy CATHERINE,TAMMI RLES D 12/20 [facility] Out[facility] En[facility] [id number] 12/24 [facility] QNHP OL DIG ASSMT&MGMT 5-10 [id number] Diagnos is: ICD-10- CM Z04.89 Encount er for examina tion and observa tion for oth reasons KRISTI VILLALBA 01/02 [facility] Out[facility] Encounter [id number] 02/13 [facility] Out[facility] Encounter [id number] 02/20 [facility] Out[facility] Encounter [id number] 1.02/28 [facility] Out[facility]counter [id number] 03/06 [facility] [id number] 1.03/20 [facility] [id number] 03/28 [facility]counter [id number] 03/28 [facility] En[facility] [id number] 03/29 [facility] OFFICE O/P EST MOD 30 MIN [id number] 1. Diagnos is: ICD-10- CM C65.9 Maligna nt neoplas m of unspeci fied renal pelvis CAT VILLALOBOS 04/05 [facility] [id number] 04/05 [facility] [id number] 04/06 [facility]counter [id number] DONG YOO 04/14 [facility]counter [id number] 05/22 [facility] [id number] [facility] Encounter [id number] 08/01 [facility] NQHP OL DIG ASSMT&MGMT 5-10 [id number] Diagnos is: ICD-10- CM Z04.89 Encount er for examina tion and observa tion for oth reasons KRISTI VILLALBA 08/21 [facility] Outpatient Encounter [id number] 09/22 [facility] Social History Combined list of available smoking, tobacco, and other social history from [facility] and [facility] facilities. Social History Type Response Date Comment Sourc e Tobacco smoking status [place] FORMER USER 07/28/2023 [facility] Plan of Care List of future care activities from [facility] facilities. Additional future care activities may be listed in the Assessment and Plan section. Date/Time Care Activity Care Activity Detail Facili ty 10/19/2024 AMBULATORY - MEDICINE AMBULATORY - MEDICI NE [facility] 08/21/2024 Laboratory - Instructional Services Librarian ry Order CREATININE (eGFR 2020) BLOOD (SST-SERUM) SP [facility] 08/21/2024 Laboratory - Instructional Services Librarian ry Order CBC BLOOD (LAV-BLOOD) [facility] Advance Directives List of completed, amended, or rescinded Advance Directives on record at [facility] facilities. An actual copy of the Directive is not included. Date Advance Directive Provider Source 08/27/2022 ADVANCE DIRECTIVE RISSA YOO [facility]
--- OUTSIDE RECORDS SUMMARY | 2024-09-25 14:57 | XMS_ITS | Encounter Summary ---
Author Name [facility] [place] [facility] [place] [facility] [place] Address [address] [place] [address] Care Team Providers Care Manager Licensing Name Role Phone ACT GARCIA Primary Care Provider Unav ailable Insurance [...] section includes the information on record at [place] for the Encounter. Date/Time Encounter Type Encounter Description Reason Provider Source December 21, 2023 10:00 AM OFFICE O/P NEW SF 15 MIN PODIATRY ICD-10-CM L60.3 Nail dystrophy JOANNA FLEMING [facility] Encounter Template Text not used by [place] Assessments - Encounter Diagnoses This section includes the primary and secondary diagnoses documented for the Encounter. Date/Time Primary/Secondary Diagnosis Diagnosis Name Provider Source Jan 13, 2024 03:44 PM PRIMARY Nail dystrophy JOANNA FLEMING [facility] Plan of Treatment: Future Appointments (+ 6 months) and Future Tests (+/- 45 days) The Plan of Treatment section includes future care activities for the patient from all [place] treatmentfacilities. This section includes future appointments and future orders which are active, pending or scheduled. Future Appointments This section includes appointments that were scheduled to occur 6 months from the date of the Encounter, up to a maximum of 20 appointments. The data comes from all [place] treatment facilities. Appointment Date/Time Appointment Type Appointme nt Facility Name Apr 05, 2024 09:00 AM AMBULATORY - MEDICINE [facility] Vital Signs: All taken on the encounter date This section contains inpatient and outpatient Vital Signs collected on the date of the Encounter. Date/Time Temperature Pulse Blood Pressure Respiratory Rate SP02 Pain Height Weight Body Mass Index Source December 21, 2023 10:24 AM 98.2 99 111/66 18 99 0 [facility] Social History: Smoking Status (Most current) and Tobacco Use (All prior to encounter date) This section includes the most current, and the historical, smoking and tobacco- related health factors from the [place] facility where the Encounter took place. Current Smoking Status This section includes the most current smoking, or tobacco-related health factor, from the [place] facility where the Encounter took place. Date/Time Current Smoking Status Comment Mao ity Jul 28, 2023 10:00 AM NH-TOBACCO FORMER USER [facility] Tobacco Use History This section includes a history of the smoking, or tobacco-related health factors, that were collected on or before the date of the Encounter. The data comes from the [place] facility where the Encounter took place. Date/Time Smoking Status/Tobacco Use Comment F acility Jul 28, 2023 10:00 AM NH-TOBACCO QUIT 15 YRS OR MORE [facility] Aug 03, 2022 04:31 PM [place]-TOBACCO FORMER USER [facility] Aug 03, 2022 04:31 PM NH-TOBACCO QUIT 15 YRS OR MORE [facility] Advance Directives: All historical and current Section Date Range: From patient's date of to the date document was created. This section includes ALL of a patient's completed or amended [place] Advance and Rescinded Directives. The entries below indicate that a directive exists for the patient, but an actual copy is not included with this document. The data comes from all [place] facilities. Date Advance Directives Provider Source Aug 27, 2022 ADVANCE DIRECTIVE RISSA YOO [facility] Encounter Notes: All associated encounter notes This section contains the clinical notes associated to the Encounter. Date/Time Encounter Note(s) Provider Source December 21, 2023 10:28 AM PODIATRY CONSULT: LOCAL TITLE: CONSULT REPORT/PODIATRY STANDARD TITLE: PODIATRY CONSULT DATE OF NOTE: DECEMBER 21, 2023@10:28 ENTRY DATE: DECEMBER 21, 2023@10:29:02 AUTHOR: JOANNA FLEMING EXP COSIGNER: URGENCY: STATUS: COMPLETED Podiatry [facility] New Consult Provider: Joanna Fleming Date: DECEMBER 21, 2023 IGNACIA WRIGHT [address], [place] [address] [birth year] 73 MALE [phone] PATIENT PHONE - [employer] FROM Oct TO Oct Primary Care: CAT GARCIA Consult Concern:Patient referred by CAT GARCIA for nail care.He is on hospice. Referred for routine foot care. 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 BEGIN AGAIN WITH NEXT CHEMO CYCLE 3) DEXAMETHASONE 4MG TAB TAKE ONE TABLET BY MOUTH TWICE ACTIVE DAILY ON THE 2 DAYS AFTER CHEMO 4) LEVOTHYROXINE NA (SYNTHROID) 75MCG TAB TAKE ONE ACTIVE TABLET BY MOUTH ONCE DAILY FOR THYROID TAKE ON AN EMPTY STOMACH WITH A FULL GLASS OF WATER 5) LUBRICATING (PF) OPH OINT APPLY SMALL AMOUNT INTO ACTIVE EACH EYE AT BEDTIME NEEDED 6) MIDODRINE HCL 5MG TAB TAKE ONE TABLET BY MOUTH THREE ACTIVE TIMES A DAY FOR LOW BLOOD PRESSURE 7) OLANZAPINE 2.5MG TAB TAKE ONE TABLET BY MOUTH AT ACTIVE BEDTIME FOR DEPRESSION WITH BIPOLAR DISORDER 8) SODIUM CHLORIDE 1GM TAB TAKE TWO TABLETS BY MOUTH ACTIVE TWICE DAILY SODIUM REPLETION 9) UREA 15GM/PKT ORAL PWDR TAKE 2 PACKETS BY MOUTH TWICE ACTIVE DAILY (MIX WITH 3 TO 4 OUNCES OF WATER OR JUICE) Active Non-VA Medications Status 1) Non-VA ASCORBIC ACID 500MG TAB 500MG BY MOUTH ONCE ACTIVE DAILY 2) Non-VA FERROUS SULFATE 325MG TAB 325MG BY MOUTH ONCE ACTIVE DAILY 3) Non-VA SODIUM BICARBONATE 325MG TAB 325MG BY MOUTH ACTIVE TWICE DAILY 12 Total Medications Allergies: Data on this list may not be complete. Please check [facility]. FACILITY ALLERGY/ADR -------- No Remote Allergy/ADR Data available for this patient [facility] No Known Allergies Exam: Vital signs: Date Vital Measurement Qualifiers 12/21/2023 10:24 Temp F (C) 98.2 (36.8) Pulse 99 Respir 18 BP 111/66 Pain 0 POx (L/Min)(%) 99 At Rest General: Chronically ill, cachectic appearing 73-year-old male awake alert oriented x3 however pleasant and cooperative Bilateral pulses are weak DP PT No edema Limbs are emaciated Skin is thin and dystrophic bilateral Muscle mass is severely diminished Motor strength is weakened 4 out of 5 most groups bilateral Grossly sensate still to light touch pain and temperature at the midfoot but loss of sensation more distally questioning prior chemo and radiation as a cause. Nails are elongated and in some cases going into but not penetrating the skin leaving deep indentation Hallux nail on the right is very thick and dystrophic Webs are clear No open wounds or sores otherwise LE Exam: Impression: -73-year-old male on hospice for end-stage renal carcinoma -Severe nail dystrophy -Class B findings Plan: -Debrided nails in length and thickness x10 without incident -Cleansed all areas with 10% alcohol -Caregivers instructed to monitor for clinical signs of infection Return in 6 months /cheryl/ JOANNA FLEMING DPEdu PODIATRY ATTENDING Signed: 12/21/2023 16:36 JOANNA FLEMING [facility]
--- OUTSIDE RECORDS SUMMARY | 2024-09-25 14:57 | XMS_ITS | Encounter Summary ---
Author Name [facility] [place] [facility] [place] [facility] [place] Address [address] [place] [id number] Care Team Providers Care Enrober Tender Name Role Phone CAT GARCIA Primary Care [...] section includes the information on record at [place] for the Encounter. Date/Time Encounter Type Encounter Description Reason Pro vider Source Aug 01, 2024 09:26 AM Outpatient Encounter ADMIN PAT ACTIVTIES (MASNONCT) IHE Encounter Template Text not used by [place] Plan of Treatment: Future Appointments (+ 6 months) and Future Tests (+/- 45 days) The Plan of Treatment section includes future care activities for the patient from all [facility]. This section includes future appointments and future orders which are active, pending or scheduled. Future Appointments This section includes appointments that were scheduled to occur 6 months from the date of the Encounter, up to a maximum of 20 appointments. The data comes from all [place] treatment facilities. Appointment Date/Time Appointment Type Appointme nt Facility Name Oct 19, 2024 09:00 AM AM[place]ULATORY [place]ICINE [place] [facility] [place] [facility] Active, Pending, and Scheduled Orders This section includes a listing of several types of active, pending, and scheduled orders, including clinic medications orders, diagnostic test orders, procedure orders and consult orders; where the start date of the order is 45 days before the date of the Encounter or 45 days after the date of theEncounter. The data comes from all [place] treatment facilities. Test Date/Time Test Type Test Details Facility Name Aug 21, 2024 12:00 AM Laboratory - Chemistry Order CBC BLOOD (LAV-BLOOD) [facility] Aug 21, 2024 12:00 AM Laboratory - Chemistry Order CREATININE (eGFR 2020) BLOOD (SST-SERUM) [facility] Social History: Smoking Status (Most current) and Tobacco Use (All prior to encounter date) This section includes the most current, and the historical, smoking and tobacco- related health factors from the [place] facility where the Encounter took place. Current Smoking Status This section includes the most current smoking, or tobacco-related health factor, from the [place] facility where the Encounter took place. Date/Time Current Smoking Status Comment Facil ity Jul 28, 2023 10:00 AM [place]-TOBACCO FORMER USER [facility] Tobacco Use History This section includes a history of the smoking, or tobacco-related health factors, that were collected on or before the date of the Encounter. The data comes from the [place] facility where the Encounter took place. Date/Time Smoking Status/Tobacco Use Comment F acility Jul 28, 2023 10:00 AM [place]-TOBACCO QUIT 15 YRS OR MORE [facility] Aug 03, 2022 04:31 PM [place]-TOBACCO FORMER USER [facility] Aug 03, 2022 04:31 PM [place]TOBAC[place] QUIT 15 YRS OR MORE [facility] Advance Directives: All historical and current Section Date Range: From patient's date of to the date document was created. This section includes ALL of a patient's completed or amended [place] Advance and Rescinded Directives. The entries below indicate that a directive exists for the patient, but an actual copy is not included with this document. The data comes from all [place] facilities. Date Advance Directives Provider Source Aug 27, 2022 ADVANCE DIRECTIVE SONI YOO [place] [facility] Encounter Notes: All associated encounter notes This section contains the clinical notes associated to the Encounter. Date/Time Encounter Note(s) Provider Source Aug 01, 2024 09:26 AM PHARMACY NOTE: LOCAL TITLE: V1 PHARMACY CUSTOMER CARE MEDICATION RENEWAL STANDARD TITLE: PHARMACY NOTE DATE OF NOTE: AUG 01, 2024@09:26 ENTRY DATE: AUG 01, 2024@09:26:49 AUTHOR: STEVE CAICEDO EXP COSIGNER: URGENCY: STATUS: COMPLETED Date: Jul Division: [facility] referred by Pharmacy Call Center for medication renewal: Non-controlled/maintena nce medication Medications requested: [id number] APIXABAN 5MG TAB Defer to primary care provider To be mailed . Please review and renew if appropriate. *This note was generated by [facility] [facility] Customer [facility]. If you have any questions or need assistance, do not contact this author. Please refer all questions to your local, on-site pharmacy departments. /cheryl/ STEVE CAICEDO [employer], [place] Customer [facility] Signed: 08/01/2024 09:27 Receipt Acknowledged By: 08/01/2024 14:12 /cheryl/ CAT GARCIA MD PHYSICIAN 08/02/2024 08:40 /cheryl/ Soni Yoo back panel padder Staff Nurse STEVE CAICEDO [facility]
--- OUTSIDE RECORDS SUMMARY | 2024-09-25 14:57 | XMS_ITS | Encounter Summary ---
Author Name [facility] [place] [facility] Address [address] [place] [address] Care Team Providers Care Biomedical Engineering Aide Name Role Phone CAT GARCIA Primary Care [...] section includes the information on record at [place] for the Encounter. Date/Time Encounter Type Encounter Description Reason Provider Source Apr 05, 2024 09:00 AM OFFICE O/P EST MOD 30 MIN PRIMARY CARE/MEDICINE ICD-10-CM C65.9 Malignant neoplasm of unspecified renal pelvis Edu GARCIA Valentina Encounter Template Text not used by [place] Assessments - Encounter Diagnoses This section includes the primary and secondary diagnoses documented for the Encounter. Date/Time Primary/Secondary Diagnosis Diagnosis Name Provider Source Apr 05, 2024 09:42 AM PRIMARY Malignant neoplasm of unspecified renal pelvis CAT GARCIA [place] [facility] Apr 05, 2024 09:42 AM SECONDARY Encounter for immunization DEVYN GRAHAM [place] [facility] Apr 05, 2024 09:42 AM SECONDARY Hypo-osmolality and hyponatremia CAT GARCIA [place] [facility] Apr 05, 2024 09:42 AM SECONDARY Hypothyroidism, unspecified CAT GARCIA [place] [facility] Apr 05, 2024 09:42 AM SECONDARY Malignant neoplasm of rectum CAT GARCIA [place] [facility] Apr 05, 2024 09:42 AM SECONDARY Other pulmonary embolism without acute cor pulmonale CAT GARCIA [place] [facility] Vital Signs: All taken on the encounter date This section contains inpatient and outpatient Vital Signs collected on the date of the Encounter. Date/Time Temperature Pulse Blood Pressure Respiratory Rate SP02 Pain Height Weight Body Mass Index Source Apr 05, 2024 09:02 AM 98 103 109/69 16 96 0 198.8 26 [place] [facility] Immunizations: All administered on the encounter date This section contains immunizations associated to the Encounter. Immunization Series Date Issued Reaction Comments INFLUENZA, HIGH-DOSE, TRIVALENT, PF Apr 05 Social History: Smoking Status (Most current) and Tobacco Use (All prior to encounter date) This section includes the most current, and the historical, smoking and tobacco- related health factors from the [place] facility where the Encounter took place. Current Smoking Status This section includes the most current smoking, or tobacco-related health factor, from the [place] facility where the Encounter took place. Date/Time Current Smoking Status Comment Mao draper Jul 28, 2023 10:00 AM VA-TOBACCO FORMER USER [place] [facility] Tobacco Use History This section includes a history of the smoking, or tobacco-related health factors, that were collected on or before the date of the Encounter. The data comes from the [place] facility where the Encounter took place. Date/Time Smoking Status/Tobacco Use Comment Jhony acrima Jul 28, 2023 10:00 AM VA-TOBACCO QUIT 15 YRS OR MORE [place] [facility] Aug 03, 2022 04:31 PM VA-TOBACCO FORMER USER [place] [facility] Aug 03, 2022 04:31 PM VA-TOBACCO QUIT 15 YRS OR MORE [place] [facility] Advance Directives: All historical and current Section Date Range: From patient's date of to the date document was created. This section includes ALL of a patient's completed or amended [place] Advance and Rescinded Directives. The entries below indicate that a directive exists for the patient, but an actual copy is not included with this document. The data comes from all [place] facilities. Date Advance Directives Provider Source Aug 27, 2022 ADVANCE DIRECTIVE SONI YOO [place] [facility] Encounter Notes: All associated encounter notes This section contains the clinical notes associated to the Encounter. Date/Time Encounter Note(s) Provider Source May 31, 2024 08:54 AM ADMINISTRATIVE NOTE: LOCAL TITLE: ADMINISTRATIVE NOTE STANDARD TITLE: ADMINISTRATIVE NOTE DATE OF NOTE: MAY 31, 2024@08:54 ENTRY DATE: MAY 31, 2024@08:55:02 AUTHOR: MARTINEZ GARCIA EXP COSIGNER: URGENCY: STATUS: COMPLETED ADMINISTRATIVE NOTE Has ADDENDA see message below from MARIA INES Nayak/ vet may already be getting hospice thru [facility] oncology practice. Mario Chan plz call and determine if she wants [place] to place home hospice consult to provide support to vet?? See Minimally invasive devices Malini message below: Per Fabio PCP, Consult entered in error. Per staff @ [facility], last seen by them 04/01/23, and there is no upcoming appt. Per most recent Office Visit Note from [facility] Onc, [place] was no longer a candidate for palliative chemo and their recommendation was for the to enroll in Hospice. This Consult will be cancelled. /cheryl/ CAT GARCIA MD PHYSICIAN Signed: 05/31/2024 08:56 Receipt Acknowledged By: 06/01/2024 08:30 /cheryl/ MARIO TAM REGISTERED NURSE 05/31/2024 14:20 /cheryl/ Soni Yoo RN Primary Care Staff Nurse 05/31/2024 ADDENDUM STATUS: COMPLETED This Vet already has home care/VNA that was set up by [facility] Oncology after last hospital discharge. /mele Yoo RN Primary Care Staff Nurse Signed: 05/31/2024 14:20 MARTINEZ GARCIA [place] [facility] Apr 19, 2024 09:50 AM PHYSICIAN TELEPHONE ENCOUNTER NOTE: LOCAL TITLE: TELEPHONE NOTE/MD STANDARD TITLE: PHYSICIAN TELEPHONE ENCOUNTER NOTE DATE OF NOTE: APR 19, 2024@09:50 ENTRY DATE: APR 19, 2024@09:50:12 AUTHOR: MARTINEZ GARCIA EXP COSIGNER: URGENCY: STATUS: COMPLETED this fiction and nonfiction prose writer called vet and back on phone listed/ [phone]. Message left that the labs from [facility] appear stable and clear message left on voicemail that NO need to change dose of thyroid med/nor is there anything else that needs to change based on labs. Vet will, of course, continue f/u with [facility] and call [facility]. next PCP appt in 6 mos. /cheryl/ CAT GARCIA MD PHYSICIAN Signed: 04/19/2024 09:52 Receipt Acknowledged By: 04/19/2024 09:54 /es/ Soni Yoo RN Primary Care Staff Nurse [facility] Apr 05, 2024 09:07 AM PREVENTIVE MEDICINE NURSING NOTE: LOCAL TITLE: CLINICAL REMINDERS/NURSING STANDARD TITLE: PREVENTIVE MEDICINE NURSING NOTE DATE OF NOTE: APR 05, 2024@09:07 ENTRY DATE: APR 05, 2024@09:07:08 AUTHOR: IRAIS GRAHAM EXP COSIGNER: URGENCY: STATUS: COMPLETED CLINICAL REMINDERS/NURSING Has ADDENDA Advance Directive Screen MH AD: Patient has an Advance Directive on file at this [facility]. No updates are needed at this time. The patient received education about Advance Directives and written notification of his/her rights. Comment: up to date Sexual Orientation: The patient thinks of their sexual orientation as: Straight or Heterosexual Homelessness/Food Insecurity Screen: In the past 2 months, have you been living in stable housing that you own, rent, or stay in as part of a household? Yes - Living in stable housing. Are you worried or concerned that in the next 2 months you may NOT have stable housing that you own, rent, or stay in as part of a household? No - Not worried about housing near future The reports the following: Within the past 12 months, you worried whether your food would run out before you got money to buy more. Never true Within the past 12 months, the food you bought just didn't last and you didn't have money to get more. Never true /cheryl/ IRAIS GRAHAM LPN LPN Signed: 04/05/2024 09:28 04/05/2024 ADDENDUM STATUS: COMPLETED Influenza Immunization: Influenza, High-Dose, Trivalent, Preservative Free (Fluzone-Syringe) Administered: INFLUENZA, HIGH-DOSE, TRIVALENT, PF Date Administered: Apr 05, 2024 09:00 Series: Complete Vp Respiratory: [employer] Lot: [id number] Exp Date: Jan 22, 2025 [facility]: [id number] Admin Route/Site: INTRAMUSCULAR/LEFT DELTOID Dosage: 0.5mL Vaccine Information Statement(s): INFLUENZA(FLU) VACC(INACTIVATED OR RECOMBINANT)VIS Feb 28, 2021 ([place]) Order By: Policy Administered By: Irais Graham The Influenza Vaccine Information Statement (VIS) was reviewed with the patient/caregiver which lists the benefits and risks of the vaccine and the risks of not receiving the Influenza vaccine. The patient/caregiver denied any prior severe reaction to this vaccine or its components or a severe allergic reaction, such as anaphylaxis, to any vaccine or any injectable therapy. The patient/caregiver gave verbal consent to receive the vaccine. /cheryl/ IRAIS GRAHAM LPN LPN Signed: 04/05/2024 09:29 IRAIS GRAHAM [place] [facility] Apr 05, 2024 08:25 AM PHYSICIAN NOTE: LOCAL TITLE: MD NOTE STANDARD TITLE: PHYSICIAN NOTE DATE OF NOTE: APR 05, 2024@08:25 ENTRY DATE: APR 05, 2024@08:25:18 AUTHOR: MARTINEZ GARCIA EXP COSIGNER: URGENCY: STATUS: COMPLETED HISTORY OF PRESENT ILLNESS: = IGNACIA WRIGHT, is a 73 yo RACE UNKNOWN MALE who presents at the [place] at [facility] CC. multiple problems HPI.this vet presents to PCP clinic to f/u his medical concerns. He is his and son today. 1. hx of colon and renal cancer. vet is NOT on chemo and is closely followed by Dr Cisneros from [facility] oncology, he has gained > 50 lbs with improved appetite and fluid retention. 2. hx of low sodium, vet trying to restrict fluids 3. hypothyroid, he has TSH monitored at [facility], levothyroxine dose 75 mcg/ no tachycardia 4. hx of pulm embolism, no bleeding on apixiban SH nonsmoker Active problems - Computerized Problem List is the source for the followin. Hypothyroidism ([facility] [id number]) 2. Unstable when walking 3. Long-term current use of anticoagulant 4. Hearing Loss ([facility] [id number]) 5. Impaired vision 6. Colostomy present 7. Body mass index less than 20 8. 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 Hypertension 12. Pulmonary embolism 13. Hyponatremia HISTORY: PERIOD OF SERVICE - [facility] FROM Oct TO Oct COMBAT SERVICE INDICATED: No SERVICE CONNECTED % - 100 VITAL SIGNS: Temperature 98.2 F [36.8 C] (12/21/2023 10:24) Blood Pressure 111/66 (12/21/2023 10:24) Pulse 99 (12/21/2023 10:24) Respiration 18 (12/21/2023 10:24) Pain 0 (12/21/2023 10:24) BMI BMI: 17.0 Weight 132 lb [59.87 kg] (03/11/2023 15:32) Pulse Oximetry 99% (12/21/2023 10:24) Review of Systems: CONSTITUTIONAL: No fever, no loss of appetite/ vet says his taste has returned and he will monitor his weight ENT: No sore throat, no cough CARDIOVASCULAR: No chest pain, no palpitations RESPIRATORY: No SOB, no wheezing GASTROINTESTINAL: No abd pain, no N/V/D EXAMINATION General: chronically ill-appearing gentleman in no obvious distress/ moves very slowly/carefully-used transport chair to arrive at PCP clinic Mental Status: Alert and oriented x 3 Head: Normocephalic. Eyes: Anicteric sclerae. Conjunctivae noninjected. Ext: venous stasis changes around both ankles/purpuric skin color changes w/ 1+ edema bilat DATA REVIEW >> MEDICATIONS Reviewed Today (VA & Non VA) ALLERGIES: Patient has answered NKA Active Outpatient Medications (including Supplies): Issue Date Status Last Fill Active Outpatient Medications Refills Expiration 1) APIXABAN 5MG TAB Qty: 90 for 90 days ACTIVE Issu:09-20-23 Sig: TAKE ONE-HALF TABLET BY MOUTH Refills: 1 Last:03-08-24 EVERY 12 HOURS FOR PREVENTION OF BLOOD Expr:09-20-24 CLOTS 2) LEVOTHYROXINE NA (SYNTHROID) 75MCG TAB ACTIVE Issu:09-09-23 Qty: 90 for 90 days Sig: TAKE ONE Refills: 2 Last:01-05-24 TABLET BY MOUTH ONCE DAILY FOR THYROID Expr:09-09-24 TAKE ON AN EMPTY STOMACH WITH A FULL GLASS OF WATER 3) LUBRICATING (PF) OPH OINT Qty: 1 for 30 ACTIVE Issu:05-28-23 days Sig: APPLY SMALL AMOUNT INTO Refills: 9 Last:09-16-23 EACH EYE AT BEDTIME NEEDED Expr:05-28-24 4) MIDODRINE HCL 5MG TAB Qty: 270 for 90 ACTIVE Issu:09-09-23 days Sig: TAKE ONE TABLET BY MOUTH Refills: 2 Last:09-09-23 THREE TIMES A DAY FOR LOW BLOOD Expr:09-09-24 PRESSURE 5) OLANZAPINE 2.5MG TAB Qty: 90 for 90 ACTIVE Issu:09-16-23 days Sig: TAKE ONE TABLET BY MOUTH AT Refills: 0 Last:01-05-24 BEDTIME FOR DEPRESSION WITH BIPOLAR Expr:09-16-24 DISORDER 6) SODIUM CHLORIDE 1GM TAB Qty: 400 for 90 ACTIVE (S) Issu:01-19-24 days Sig: TAKE TWO TABLETS BY MOUTH Refills: 3 Last:04-21-24 TWICE DAILY SODIUM REPLETION Expr:01-19-25 7) UREA 15GM/PKT ORAL PWDR Qty: 120 for 30 ACTIVE Issu:09-28-23 days Sig: TAKE 2 PACKETS BY MOUTH Refills: 0 Last:03-30-24 TWICE DAILY (MIX WITH 3 TO 4 OUNCES OF Expr:09-28-24 WATER OR JUICE) Start Date Active Non-VA Medications Refills Expiration 1) Non-VA ASCORBIC ACID 500MG TAB Sig: ACTIVE 500MG BY MOUTH ONCE DAILY 2) Non-VA FERROUS SULFATE 325MG TAB Sig: ACTIVE 325MG BY MOUTH ONCE DAILY 3) Non-VA SODIUM BICARBONATE 325MG TAB ACTIVE SiMG BY MOUTH TWICE DAILY 10 Total Medications >> LABS REVIEWED TODAY: CHEM 7 TREND LAB CUMULATIVE SELECTED 2 No selection items chosen for this component. === CBC TREND No data available === HEMOGLOBIN A1C TREND No data available === LIPID PANEL TREND No data available === UREA NITROGEN - NONE FOUND CREATININE-EGFR - NONE FOUND === LIVER PANEL TREND No data available === PSA TREND No data available = TSH - NONE FOUND == ANEMIA PANEL TREND No data available === PT INR TREND No data available === >> HEALTH MAINTENANCE PREVENTIVE MEDICINE GOALS AIMS Testing DUE NOW Advance Directive Screen AD Aug 27 Toxic Exposure Screening DUE NOW Homelessness/Food Insecurity Screen Aug 03 Atyp Antipsych Metabol Syndrome DUE NOW Avg Risk Colorectal Cancer Screen DUE NOW Hepatitis C Testing DUE NOW HIV Screening DUE NOW Lipid Screening DUE NOW Influenza Immunization DUE NOW Medication Reconciliation DUE NOW COVID-19 Immunization DUE NOW Tdap Immunization DUE NOW Herpes Zoster (Shingles) Vaccine DUE NOW Sexual Orientation Aug 27 RHS Screen DUE NOW (Optional) Whole Health Documentation DUE NOW ASSESSMENT/PLAN: 1. hx of colon and renal cancer 2. SIADH 3. hypothyroid 4. hx of pulm embolism Plan 1. vet will continue hospice care per [facility] oncology/VNA 2. vet restricts fluids and has serum sodium checked 1-2 x per month 3. continue current levothyroxine dose 4. continue apixiban 5. f[facility] w/ [facility] and PRN/ NO labs needed/ ok to use telephone visits if vet or prefer in future LAB ORDERS FOR NEXT APPT. spent in patient care and education No barriers; Patient understands and agrees to current treatment plan. If pt has any questions, concerns, or changes in current health status he/she will call or come in to the [facility]. Medication Reconciliation: Outpatient: Has the patient been taking medications as documented in the EMLR? YES: The patient has been taking medications as documented in the EMLR. Essential Medication List for Review used to complete this medication reconciliation. INCLUDED IN THIS LIST: Alphabetical list of active outpatient prescriptions dispensed from this [place] (local) and dispensed from another [place] or [facility] facility (remote) as well as inpatient orders (local, pending and active), local clinic medications, locally documented non-VA medications, and local prescriptions that have or been discontinued in the past 90 days. - All changes in medications, including all non-VA/Herbal/OTC medications were entered into CPRS. - If there were any medications the patient should no longer take, they were discontinued. - The patient/caregiver was instructed to update this list, discard old lists, and take this list to the next appointment, whether with a VA or non-VA provider. /cheryl/ CAT GARCIA MD PHYSICIAN Signed: 04/05/2024 09:42 MARTINEZ GARCIA [place] [facility]
== END 2024-09-25 12:49 | disposition home or self-care (01) ==
LOC: HO.HVNA 12:48
PROVIDERS: Visit Provider Internal Medicine
DX: E87.1 Hypo-osmolality and hyponatremia (principal)
CPT/HCPCS: 36415; 80048